=== PATIENT | female | born 1990 | race Caucasian/White ===

== ENCOUNTER → 2020-07-24 | Outpatient (CLI) | payer MEDICAID, SELFPAY | END | disposition home or self-care (01) | LOC: LABSPEC 18:13 | PROVIDERS: Visit Provider Physician Assistant | DX: Z20.822 Contact with and (suspected) exposure to COVID-19 (principal) | CPT/HCPCS: 87635; U0005; U0003 ==

== ENCOUNTER 2021-10-13 16:38 | Outpatient (CLI) | payer OTHER, SELFPAY ==
--- NOTE | 2021-10-13 16:43 | RAD_ITS ---
HISTORY: Trauma, left foot injury EXAMINATION/TECHNIQUE: XR Foot Min 3 Views: COMPARISON: None FINDINGS: BONES/JOINTS: No acute fracture or dislocation. Preservation of the joint spaces. No sclerotic or destructive changes observed. SOFT TISSUES: No soft tissue swelling or gas. No radiopaque foreign body. RAD/Foot min 3 Views IMPRESSION: No acute bony abnormality. at 1820 Reported and signed by: Ike Aguilar MD Electronically Signed: Ike Aguilar MD at 18:19 EDT ,
== END 2021-10-13 23:59 | disposition home or self-care (01) ==
LOC: MTRAD 16:41
PROVIDERS: Referring Provider Physician Assistant; Visit Provider Physician Assistant
DX: S90.30XA Contusion of unspecified foot, initial encounter (principal)
CPT/HCPCS: 73630

== ENCOUNTER 2024-01-12 10:58 | Inpatient (IN) | payer MEDICAID, SELFPAY ==
[2024-01-12 10:58] VITALS: BP 166/129; PULSE 111; RESP 19; TEMP 35.8; O2SAT 98
[2024-01-12 11:50] LABS: Absolute Lymphocyte Count 2.56 X10^3/uL (0.83-4.51); Absolute Neutrophil Count 16.3 X10^3/uL (2.0-7.7); Basophil# 0.09 X10^3/uL; Basophil% 0.4 % (0-1); Eosinophil# 0.27 X10^3/uL; Eosinophils% 1.3 % (0-5); Hematocrit 43.9 % (37-47); Hemoglobin 14.2 g/dL (12.0-15.0); Lymphocyte # 2.56 X10^3/ul (0.83-4.51); Lymphocyte % 12.7 % (19-41); Mean Corp Hgb Conc 32.3 g/dL (32-36); Mean Corpuscular Hgb 30.6 pg (27.0-32.0); Mean Corpuscular Volume 94.6 fL (81-99); Mean Platelet Vol. 12.6 fl (6.2-12.0); Monocyte# 0.78 X10^3/uL; Monocyte% 3.9 % (0-10); NRBC Flagged by Analyzer 0 % (0-5); Neutrophil # 16.28 X10^3/uL (2.7-7.7); Neutrophil % 81.1 % (47-70); Platelet Count 401 K/mm3 (150-450); RBC Distribution Width CV 13.3 % (11.6-14.6); RBC Distribution Width SD 46.5 fl (35.1-43.9); Red Blood Count 4.64 M/mm3 (4.2-5.4); White Blood Count 20.1 K/mm3 (4.4-11.0)
--- NOTE | 2024-01-12 12:10 | CT_ITS ---
STUDY: CT ABDOMEN AND PELVIS WITH CONTRAST - URINARY TRACT REASON FOR EXAM: Female, 33 years old. Pancreatitis RADIATION DOSAGE (If Supplied By Facility): CTDIvol = ( 12.13 ) mGy, DLP = ( 580.13 ) mGycm TECHNIQUE: IV 100mL Isovue-300 was administered. Transaxial images were obtained from the dome of the diaphragm to the symphysis pubis subsequent to intravenous contrast administration. Multiplanar coronal and sagittal images were reformatted. The protocol utilizes one or more of the following dose reduction techniques: automated exposure control, adjustment of mA and/or kV according to patient size,and/or use of iterative reconstruction technique. COMPARISON: No relevant prior comparison study available FINDINGS: The visualized lung bases are unremarkable. The visualized portions of the heart are within normal limits. There is decreased attenuation of the liver consistent with steatosis. There is splenomegaly. There are surgical clips in the gallbladder fossa consistent with a prior cholecystectomy. Normal spleen. There is prominence of the pancreas with marge-pancreatic edema suggesting acute pancreatitis. Normal bilateral adrenal glands. Normal visualized stomach. Normal small intestine. There is intramural fat throughout the colon suggestive of prior inflammation. There is circumferential wall thickening of the colon as well, most pronounced within the sigmoid colon. The appendix is visualized and appears normal. Normal abdominal aorta. No retroperitoneal adenopathy. Normal right kidney. Normal left kidney. Normal urinary bladder. There is trace fluid within the pelvis which is physiologic. There is a small umbilical hernia containing fat. Normal osseous structures. CT/Abdomen/Pelvis W IV Cont ONLY IMPRESSION: Acute appendicitis. Fatty infiltration of the liver associated with hepatomegaly. Intramural colonic fat associated with wall thickening, suggestive of a history of colitis, cannot exclude superimposed acute colitis, particularly within the sigmoid colon. Electronically Signed: Libra Sherman MD at 12:57 EDT ,
[2024-01-12 12:14] LABS: AST(SGOT) 29 U/L (15-37); Alanine Aminotransfer ALT/SGPT 27 U/L (13-56); Albumin, Serum 3.5 g/dL (3.2-5.0); Alkaline Phosphatase 145 U/L (45-117); Anion Gap 9 (5-15); BUN 11 mg/dL (7-18); BUN/Creat Ratio 14.7 RATIO (10-20); Bilirubin, Direct 0.26 mg/dL (0.00-0.30); Calcium,Total 9.4 mg/dL (8.5-10.1); Chloride 107 mmol/L (98-107); Creatinine, Serum 0.75 mg/dL (0.55-1.02); EST Glomerular Filtration Rate 95 mL/min (>60); Est Glom Filt Rate - Afr Amer 115 mL/min (>60); Globulin 4.4 g/dL (2.2-4.2); Glucose 111 mg/dL (74-106); Lipase 1367 U/L (13-75); Protein, Total 7.9 g/dL (6.4-8.2); Sodium Level 137 mmol/L (136-145)
[2024-01-12] MEDS: Ondansetron 4 MG/2 ML Vial IV ×3 (12:16→20:12)
[2024-01-12] MEDS: HYDROmorphone 1 MG/ML Syringe IV ×4 (12:18→22:48)
[2024-01-12] MEDS: 0.9% Normal Saline (1000mL) 1,000 ML 999 ML IV ×2 (12:18→13:30)
--- NOTE | 2024-01-12 12:37 | ED.VIS.GI ---
HPI HPI - GI History of Present Illness Chief Complaint: Abd Pain Narrative Narrative: Patient presenting with abdominal pain. She has recent history of pancreatitis. She states that [facility] initially admit her in [facility] but they were unable to control her pain and was transferred to [facility] to have GI evaluation. She states she was in the hospital for about a week. She states she was seen by 4 different GI doctors who thought that her case was too complicated for them. She states that they believed that her pancreatitis was due to alcohol use but she states she only drinks occasionally. Patient apparently had a small bowel obstruction associated with this. She did have an NG tube placed. Over the course of her stay she was able to get her pain under control and was discharged on the . Her mother states she had been doing well however for last night her pain got worse. She states that she does not want to go back to [facility] because they did not treat her well. She did have a right upper quadrant ultrasound which was negative. She had a CT of the abdomen pelvis which shows pancreatitis but without necrosis, abscess, pseudocyst. [facility] Medical History IBS (irritable bowel syndrome) Contusion of unspecified foot, initial encounter Unspecified sprain of unspecified foot, initial encounter Home Medications ?Medication ?Instructions ?Recorded ?Last Taken ?Type Lactobacillus acidophilus 500 500 mmu cells PO BID GUT HEALTH 01/12/24 01/12/24 History million cell capsule albuterol sulfate 90 mcg/actuation 1 - 2 puff inhalation Q6H PRN 01/12/24 Unknown History aerosol inhaler ASTHMA folic acid 1 mg tablet 1 mg PO DAILY SUPPLEMENT 01/12/24 01/12/24 History food supplemt, lactose-reduced 112 ml PO DAILY SUPPLEMENT 01/12/24 01/11/24 History (Ensure oral liquid) melatonin 10 mg tablet 10 - 20 mg PO QHS SLEEP 01/12/24 01/11/24 History omeprazole 40 mg capsule,delayed 40 mg PO DAILY GERD 01/12/24 01/12/24 History release thiamine HCl (vitamin B1) 100 mg 100 mg PO DAILY SUPPLEMENT 01/12/24 01/12/24 History tablet Allergy/AdvReac Type Severity Reaction Status Date / Time codeine AdvReac Intermediate Vomiting Verified 01/12/24 11:01 Social History Smoking Status: Current every day smoker tobacco type: cigarettes ROS ROS ED Constitutional Constitutional ED: Denies chills, fever(s) or sweats Eyes Eyes: Denies blurry vision or change in vision ENT ENT ED: Denies ear pain or sore throat Cardiovascular Cardiovascular: Denies chest pain, palpitations or racing heartbeat Respiratory/Chest Respiratory/Chest: Denies cough, dyspnea or sputum Gastrointestinal Gastrointestinal: Reports abdominal pain, nausea and vomiting; Denies constipation or diarrhea Genitourinary Genitourinary ED: Denies dysuria, hematuria or urinary frequency Musculoskeletal Musculoskeletal: Denies arthralgias, myalgias or neck pain Integumentary Denies abscess, Abrasions or rash Neurologic Neurologic: Denies headache(s), paresthesias or weakness Psychiatric Psychiatric: Denies anxiety, depression, suicidal ideation or suicidal thoughts Endocrine Endocrinology: Denies polydipsia or polyuria EXAM Physical Exam Const Vital Signs: 01/12/24 10:58 01/12/24 12:58 01/12/24 14:00 Temperature 96.4 F L 97.8 F Temperature Source Temporal Pulse Rate 111 H 82 82 Respiratory Rate 19 H 16 16 Blood Pressure 166/129 H 115/78 118/74 Blood Pressure Mean 141 90 88 Pulse Ox 98 99 99 Oxygen Delivery Method Room Air Room Air Positive well nourished General Appearance ED: Negative for pallor HEENT Reports moist mucous membranes normocephalic and atraumatic Eyes PERRL and EOMs intact bilaterally Resp normal respiratory effort Cardio regular rhythm Rate: tachycardic GI Inspection: other Palpation: tender epigastric Neuro CN's II-XII intact bilaterally and moves all extremities Sensorium / Orientation: alert Motor Exam: strength 5/5 throughout Psych Mood & Affect: tearful Skin General Skin Exam: Negative for jaundice or pallor MDM MDM MDM Narrative Medical decision making narrative: Patient presenting with epigastric abdominal pain. Differential includes colitis, diverticulitis, gastritis, pancreatitis, constipation, appendicitis, UTI, pyelonephritis, calculi, ureteral calculi, obstruction, malignancy, dehydration, electrolyte abnormalities, constipation. CBC will be obtained to assess white blood cell count, hemoglobin, platelets. CMP to assess renal function, electrolytes, liver function, glucose. Lipase to assess for pancreatitis. Urinalysis to assess for UTI. I was able to log into [facility], and I was able to find pertinent medical records available for review to compare to the patient's current lab/imaging/workup. Her highest that I can find her lipase is greater than 375. Previous CT scan of the abdomen pelvis which was performed on 12/01/2023 showed prominent retroperitoneal lymph nodes which were reactive as well as moderate right and small left pleural effusion. There was evidence of dilated loops of bowels with terminal ileitis. It was also noted that there was pancreatitis about evidence of necrosis, cyst, abscess. CBC today shows a leukocytosis of 20.1. Hemoglobin 14.5. Platelets are normal at 401. INR is normal. LFTs unremarkable with exception of her alkaline phosphatase of 145. Lipase is 1367. EtOH negative. CT of the abdomen pelvis shows acute pancreatitis. Discussed case with Dr. Miller prior to admission and he did put in some orders. He will see the patient in the hospital. Patient admitted to the hospitalist. Impression: 1. Acute pancreatitis Lab Data Attestation: I reviewed the patient's lab results. Labs: Laboratory Results - last 24 hr 01/12/24 01/12/24 01/12/24 11:35 12:50 13:03 WBC 20.1 H RBC 4.64 Hgb 14.2 Hct 43.9 MCV 94.6 MCH 30.6 MCHC 32.3 RDW Std Deviation 46.5 H RDW Coeff of Mercedes 13.3 Plt Count 401 MPV 12.6 H Immature Gran % (Auto) 0.600 Neut % (Auto) 81.1 H Lymph % (Auto) 12.7 L [place] % (Auto) 3.9 Eos % (Auto) 1.3 Baso % (Auto) 0.4 Absolute Neuts (auto) 16.3 H Absolute Lymphs (auto) 2.56 Nucleated RBC % 0 PT 15.2 H INR 1.2 Sodium 137 Potassium 4.0 Chloride 107 Carbon Dioxide 21.0 Anion Gap 9 BUN 11 Creatinine 0.75 Est GFR (MDRD) Af Amer 115 Est GFR (MDRD) Non-Af 95 BUN/Creatinine Ratio 14.7 Glucose 111 H Calcium 9.4 Total Bilirubin 1.00 Direct Bilirubin 0.26 AST 29 ALT 27 Alkaline Phosphatase 145 H Total Protein 7.9 Albumin 3.5 Globulin 4.4 H Lipase 1367 H Ethyl Alcohol < 3.0 Radiography Diagnostic Testing: Clinical Impression(s) from Imaging Studies Abdomen/Pelvis CT 01/12/24 12:10 IMPRESSION: Acute appendicitis. Fatty infiltration of the liver associated with hepatomegaly. Intramural colonic fat associated with wall thickening, suggestive of a history of colitis, cannot exclude superimposed acute colitis, particularly within the sigmoid colon. Electronically Signed: Libra Sherman MD at 12:57 EDT , Discharge Plan Triage Chief Complaint: Abd Pain ED Provider: Antonio Odell Dx/Rx/DC Orders Prescriptions: No Action Lactobacillus acidophilus 500 million cell capsule 500 mmu cells PO BID folic acid 1 mg tablet 1 mg PO DAILY thiamine HCl (vitamin B1) 100 mg tablet 100 mg PO DAILY omeprazole 40 mg capsule,delayed release(DR/EC) 40 mg PO DAILY melatonin 10 mg tablet 10 - 20 mg PO QHS Ensure Liquid 112 ml PO DAILY albuterol sulfate 90 mcg/actuation HFA aerosol inhaler 1 - 2 puff inhalation Q6H PRN (Reason: ASTHMA ) Primary Care Provider: Rossi Jones Referrals: Rossi Jones DO [Primary Care Provider] - Print Language: Mongolian
[2024-01-12 12:58] VITALS: BP 115/78; PULSE 82; RESP 16; O2SAT 99
[2024-01-12 13:13] LABS: International Normalized Ratio 1.2; Prothrombin Time (Protime)PT. 15.2 SECONDS (11.7-14.9)
[2024-01-12] MEDS: HYDROmorphone 0.5 MG/0.5 ML SYRINGE IV ×3 (13:30→17:36)
[2024-01-12 13:37] LABS: Alcohol, Blood (Medical)-Serum < 3.0 mg/dL
[2024-01-12 14:00] VITALS: BP 118/74; PULSE 82; RESP 16; TEMP 36.6; O2SAT 99
--- NOTE | 2024-01-12 15:01 | PCM.HP.STD ---
HPI - General General Date of Admission: 01/12/24 Date of Service: 01/12/24 Chief Complaint: Abdominal pain, recent history of pancreatitis HPI Narrative FEROZ IZQUIERDO, is a 33 F who presents to the emergency room at [facility] with complaints of generalized abdominal pain and nausea. She had been hospitalized at [facility] in [facility] approximately 2 weeks ago and was given a diagnosis of pancreatitis and stayed there several days. They attributed the pancreatitis to alcohol intake although the patient does not drink alcohol on a daily basis. Labs obtained in the emergency room showed an elevated white blood cell count at 20.1, chemistry profile was remarkable for alkaline phosphatase of 145, patient's lipase was 1367. Patient was given IV narcotics in the emergency room for pain control, I talked at length with the patient and her family who was in the room, they feel that she was not treated appropriately at [place] because she was labeled drug-seeking and felt that the pancreatitis was due to alcohol use which the patient is denying on a chronic basis. Patient has had a past history of cholecystectomy, she denied having an MRCP done at [facility]. Patient will be admitted to [place] [id number], she will be seen in consultation by gastroenterology, MRCP will be ordered, the abnormal areas in the colon will probably need to be addressed sooner or later when the patient is able to drink a prep for colonoscopy. [facility] Medical History IBS (irritable bowel syndrome) Contusion of unspecified foot, initial encounter Unspecified sprain of unspecified foot, initial encounter Home Medications ?Medication ?Instructions ?Recorded ?Last Taken ?Type Lactobacillus acidophilus 500 500 mmu cells PO BID GUT HEALTH 01/12/24 01/12/24 History million cell capsule albuterol sulfate 90 mcg/actuation 1 - 2 puff inhalation Q6H PRN 01/12/24 Unknown History aerosol inhaler ASTHMA folic acid 1 mg tablet 1 mg PO DAILY SUPPLEMENT 01/12/24 01/12/24 History food supplemt, lactose-reduced 112 ml PO DAILY SUPPLEMENT 01/12/24 01/11/24 History (Ensure oral liquid) melatonin 10 mg tablet 10 - 20 mg PO QHS SLEEP 01/12/24 01/11/24 History omeprazole 40 mg capsule,delayed 40 mg PO DAILY GERD 01/12/24 01/12/24 History release thiamine HCl (vitamin B1) 100 mg 100 mg PO DAILY SUPPLEMENT 01/12/24 01/12/24 History tablet Allergy/AdvReac Type Severity Reaction Status Date / Time codeine AdvReac Intermediate Vomiting Verified 01/12/24 11:01 Social History Smoking Status: Current every day smoker tobacco type: cigarettes ROS Constitutional Constitutional: Denies anorexia, change in weight, chills, fatigue, fever(s), malaise, night sweats or weakness Eyes Eyes: Denies blurry vision, change in vision, discharge from eye(s) or eye pain Cardiovascular Cardiovascular: Denies chest pain, claudication, dyspnea on exertion, edema or palpitations Respiratory/Chest Respiratory/Chest: Denies cough, hemoptysis, shortness of breath at rest or shortness of breath with exertion Gastrointestinal Gastrointestinal: Reports abdominal pain, nausea and vomiting; Denies constipation, diarrhea, hematemesis, hematochezia or melena Genitourinary Genitourinary: Denies dysuria, hematuria, urinary frequency, urinary hesitancy, urinary incontinence or urinary urgency Musculoskeletal Musculoskeletal: Denies back pain, joint pain, joint stiffness, joint swelling, myalgias or neck pain Neurologic Neurologic: Denies abnormal gait, abnormal speech, dizziness, focal weakness, headache(s), loss of vision, numbness, other visual disturbances, paresthesias, syncope or tingling Psychiatric Psychiatric: Denies anxiety, cognitive impairment, depression, irritability, mood swings or suicidal ideation Endocrine Endocrinology: Denies change in body appearance, cold intolerance, excessive sweating, heat intolerance, polydipsia or polyuria Hematologic/Lymphatic Hematologic/Lymphatic: Denies none, anemia, easy bleeding, easy bruising or lymphadenopathy Allergic/Immunologic Allergic/Immunologic: Denies rhinitis, urticaria, eczemia or asthma Vital Signs Vital Signs Vital Signs: 01/12/24 10:58 01/12/24 12:58 01/12/24 14:00 Temperature 96.4 F L 97.8 F Temperature Source Temporal Pulse Rate 111 H 82 82 Respiratory Rate 19 H 16 16 Blood Pressure 166/129 H 115/78 118/74 Blood Pressure Mean 141 90 88 Pulse Ox 98 99 99 Oxygen Delivery Method Room Air Room Air Physical Exam Const alert and oriented x3 Constitutional Narrative: Patient appears uncomfortable due to generalized abdominal pain General Appearance: cooperative, well kempt and well developed Orientation / Consciousness: awake, oriented to person, oriented to place and oriented to time HEENT normocephalic, head/scalp atraumatic, hearing grossly normal bilaterally and moist oral mucous membranes Eyes PERRL, EOMs intact bilaterally and conjunctivae normal Neck supple, no JVD, thyroid normal and no carotid bruits General: trachea midline Resp normal respiratory effort, no retractions, no use of accessory muscles and clear to auscultation bilaterally Auscultation: Negative for rales, rhonchi or wheezes Cardio regular rate, regular rhythm, S1 normal heart sound, S2 normal heart sound, no murmurs, no rub and no gallops GI GI Narrative: Abdomen is tender to palpation, abdomen is not distended, bowel sounds are diminished in all 4 quadrants, no rebound abdominal tenderness was noted Extremity no clubbing, cyanosis or edema Skin no rashes or lesions noted General Skin Exam: no breakdown Neuro oriented x3, CN's II-XII intact bilaterally, moves all extremities, no focal motor deficits and no sensory deficits noted Sensorium / Orientation: awake and alert Speech: speech normal Psych affect normal Results Lab / Micro Data 01/12/24 11:35 01/12/24 11:35 Labs: Laboratory Results - last 24 hr 01/12/24 11:35: WBC 20.1 H, RBC 4.64, Hgb 14.2, Hct 43.9, MCV 94.6, MCH 30.6, MCHC 32.3, RDW Std Deviation 46.5 H, RDW Coeff of Mercedes 13.3, Plt Count 401, MPV 12.6 H, Immature Gran % (Auto) 0.600, Neut % (Auto) 81.1 H, Lymph % (Auto) 12.7 L, [place] % (Auto) 3.9, Eos % (Auto) 1.3, Baso % (Auto) 0.4, Absolute Neuts (auto) 16.3 H, Absolute Lymphs (auto) 2.56, Nucleated RBC % 0, Sodium 137, Potassium 4.0, Chloride 107, Carbon Dioxide 21.0, Anion Gap 9, BUN 11, Creatinine 0.75, Est GFR (MDRD) Af Amer 115, Est GFR (MDRD) Non-Af 95, BUN/Creatinine Ratio 14.7, Glucose 111 H, Calcium 9.4, Total Bilirubin 1.00, Direct Bilirubin 0.26, AST 29, ALT 27, Alkaline Phosphatase 145 H, Total Protein 7.9, Albumin 3.5, Globulin 4.4 H, Lipase 1367 H 01/12/24 12:50: PT 15.2 H, INR 1.2 01/12/24 13:03: Ethyl Alcohol < 3.0 Imaging Radiology Impression Abdomen/Pelvis CT 01/12/24 12:10 IMPRESSION: Acute appendicitis. Fatty infiltration of the liver associated with hepatomegaly. Intramural colonic fat associated with wall thickening, suggestive of a history of colitis, cannot exclude superimposed acute colitis, particularly within the sigmoid colon. Electronically Signed: Libra Sherman MD at 12:57 EDT , Assessment & Plan Assessment/Plan (1) Acute pancreatitis: PLAN: Plan 1. Acute pancreatitis-patient will be admitted to [place] [address], she will receive IV fluids and put on a clear liquid diet, she will be seen in consultation by gastroenterology who has already ordered additional lab tests on her. Patient will be medicated with Dilaudid as needed for pain and given Zofran for nausea. Labs will be monitored, MRCP will be ordered. #2 thickening of the colonic wall-this was read out today on her CT as possibly being chronic versus acute colitis, worst area in the sigmoid colon. Patient may need to undergo colonoscopy during her hospital stay. #3 leukocytosis-etiology unclear at this point, I will discuss with gastroenterology whether the patient should be placed on IV antibiotics, she was on IV antibiotics during her stay at [facility] ([facility]). Total clinical time spent by myself addressing the patient's medical issues, reviewing all of the data, and collaborating with patient's care team: 55-minute Charges/Coding Visit Charges Inpatient E&M: 46146 Init Hosp L2
[2024-01-12 15:12] LABS: Erythrocyte Sedimentation Rate 31 mm/hr (0-30)
--- NOTE | 2024-01-12 15:15 | MRI_ITS ---
INDICATION: Pancreatitis EXAMINATION: MRI - MR MRCP and Abdomen W/O Contrast TECHNIQUE: Multiplanar and multisequence MR images of the abdomen were obtained with MRCP sequence. Three-dimensional post-processing reconstructions were performed. IV Contrast Dosage and Agent: None. COMPARISON: CT abdomen and pelvis same date. FINDINGS: LIVER: No mass. Normal morphology. GALLBLADDER AND BILIARY TREE: Cholecystectomy. The CBD measures 4 mm. No intra- or extrahepatic biliary dilation. No choledochal filling defect. PANCREAS: Edematous pancreas with peripancreatic fluid and stranding. No abnormal pancreatic ductal dilatation. SPLEEN: Non-enlarged. ADRENAL GLANDS: No nodules. KIDNEYS: Normal renal size and position. No hydronephrosis. No mass. LYMPH NODES: No enlarged periportal or retroperitoneal lymph nodes. PERITONEUM: Trace ascites. VESSELS: Aorta is non-dilated. LOWER CHEST: No pleural effusion. MRI/MRCP Abdomen without Contrast IMPRESSION: Status postcholecystectomy. No choledocholithiasis. Findings of pancreatitis corresponding to the CT findings. Electronically Signed: Ike Aguilar MD at 21:00 EDT ,
[2024-01-12 15:23] LABS: CRP 9.54 mg/L (0.0-3.0); LDH 193 U/L (84-246)
[2024-01-12 15:40] LABS: Lactic Acid 1.1 mmol/L (0.4-1.9)
[2024-01-12 15:50] VITALS: BP 111/73; PULSE 89; RESP 18; TEMP 36.6; O2SAT 97
[2024-01-12] MEDS: 0.9% Normal Saline (1000mL) 1,000 ML 175 ML IV ×2 (15:53→21:48)
[2024-01-12] MEDS: 0.9% Saline Lock 10 ML Syringe IV ×2 (15:54→17:36)
[2024-01-12 15:58] VITALS: BMI 26.9
--- NOTE | 2024-01-12 17:56 | CON.PCM.GI_ITS ---
HPI Consult Data Date of Consult: 01/13/24 HPI Narrative Reason for Consultation: Pancreatitis HPI Narrative: FEROZ IZQUIERDO, is a 33 F who presents with abdominal pain. She has recent history of pancreatitis. She states that [facility] initially admit her in [place] but they were unable to control her pain and was transferred to [facility] to have GI evaluation. She states she was in the hospital for about a week. She states she was seen by 4 different GI doctors who thought that her case was too complicated for them. She states that they believed that her pancreatitis was due to alcohol use but she states she only drinks occasionally. Patient apparently had a small bowel obstruction associated with this. She did have an NG tube placed. Over the course of her stay she was able to get her pain under control and was discharged on the . Her mother states she had been doing well however for last night her pain got worse. She states that she does not want to go back to [place] because they did not treat her well. She did have a right upper quadrant ultrasound which was negative. She had a CT of the abdomen pelvis which shows pancreatitis but without necrosis, abscess, pseudocyst. WBC 20.1 H, ESR 31 H, Sodium 137, Potassium 4.0, Chloride 107, Carbon Dioxide 21.0, Anion Gap 9, BUN 11, Creatinine 0.75,Glucose 111 H, Calcium 9.4, Total Bilirubin 1.00, Direct Bilirubin 0.26, AST 29, ALT 27, Alkaline Phosphatase 145 H, Lactate Dehydrogenase 193, C-React Prot Ext Range 9.54 H, Total Protein 7.9, Albumin 3.5, Globulin 4.4 H, Lipase 1367 H , PT 15.2 H, INR 1.2, Ethyl Alcohol < 3.0, Lactic Acid 1.[address] scan abdomen pelvis and the ED that revealed: Acute pancreatitis. Fatty infiltration of the liver associated with hepatomegaly. Intramural colonic fat associated with wall thickening, suggestive of a history of colitis, cannot exclude superimposed acute colitis, particularly within the sigmoid colon. [facility] Medical History IBS (irritable bowel syndrome) Contusion of unspecified foot, initial encounter Unspecified sprain of unspecified foot, initial encounter Home Medications ?Medication ?Instructions ?Recorded ?Last Taken ?Type Lactobacillus acidophilus 500 500 mmu cells PO BID [employer] 01/12/24 01/12/24 History million cell capsule albuterol sulfate 90 mcg/actuation 1 - 2 puff inhalation Q6H PRN 01/12/24 Unknown History aerosol inhaler ASTHMA folic acid 1 mg tablet 1 mg PO DAILY SUPPLEMENT 01/12/24 01/12/24 History food supplemt, lactose-reduced 112 ml PO DAILY SUPPLEMENT 01/12/24 01/11/24 History (Ensure oral liquid) melatonin 10 mg tablet 10 - 20 mg PO QHS SLEEP 01/12/24 01/11/24 History omeprazole 40 mg capsule,delayed 40 mg PO DAILY GERD 01/12/24 01/12/24 History release thiamine HCl (vitamin B1) 100 mg 100 mg PO DAILY SUPPLEMENT 01/12/24 01/12/24 History tablet Allergy/AdvReac Type Severity Reaction Status Date / Time codeine AdvReac Intermediate Vomiting Verified 01/12/24 11:01 Social History Smoking Status: Current every day smoker tobacco type: cigarettes ROS Constitutional Constitutional: Denies anorexia, change in weight, chills, fatigue, fever(s), malaise, night sweats or weakness Eyes Eyes: Denies blurry vision, change in vision, discharge from eye(s) or eye pain Cardiovascular Cardiovascular: Denies chest pain, claudication, dyspnea on exertion, edema or palpitations Respiratory/Chest Respiratory/Chest: Denies cough, hemoptysis, shortness of breath at rest or shortness of breath with exertion Gastrointestinal Gastrointestinal: Reports abdominal pain, nausea and vomiting; Denies constipation, diarrhea, hematemesis, hematochezia or melena Genitourinary Genitourinary: Denies dysuria, hematuria, urinary frequency, urinary hesitancy, urinary incontinence or urinary urgency Musculoskeletal Musculoskeletal: Denies back pain, joint pain, joint stiffness, joint swelling, myalgias or neck pain Neurologic Neurologic: Denies abnormal gait, abnormal speech, dizziness, focal weakness, headache(s), loss of vision, numbness, other visual disturbances, paresthesias, syncope or tingling Psychiatric Psychiatric: Denies anxiety, cognitive impairment, depression, irritability, mood swings or suicidal ideation Endocrine Endocrinology: Denies change in body appearance, cold intolerance, excessive sweating, heat intolerance, polydipsia or polyuria Hematologic/Lymphatic Hematologic/Lymphatic: Denies none, anemia, easy bleeding, easy bruising or lymphadenopathy Allergic/Immunologic Allergic/Immunologic: Denies rhinitis, urticaria, eczemia or asthma Physical Exam Const alert and oriented x3 Constitutional Narrative: Patient appears uncomfortable due to generalized abdominal pain General Appearance: cooperative, well kempt and well developed Orientation / Consciousness: awake, oriented to person, oriented to place and oriented to time HEENT normocephalic, head/scalp atraumatic, hearing grossly normal bilaterally and moist oral mucous membranes Eyes PERRL, EOMs intact bilaterally and conjunctivae normal Neck supple, no JVD, thyroid normal and no carotid bruits General: trachea midline Resp normal respiratory effort, no retractions, no use of accessory muscles and clear to auscultation bilaterally Auscultation: Negative for rales, rhonchi or wheezes Cardio regular rate, regular rhythm, S1 normal heart sound, S2 normal heart sound, no murmurs, no rub and no gallops GI GI Narrative: Abdomen is tender to palpation, abdomen is not distended, bowel sounds are diminished in all 4 quadrants, no rebound abdominal tenderness was noted Extremity no clubbing, cyanosis or edema Skin no rashes or lesions noted General Skin Exam: no breakdown Neuro oriented x3, CN's II-XII intact bilaterally, moves all extremities, no focal motor deficits and no sensory deficits noted Sensorium / Orientation: awake and alert Speech: speech normal Psych affect normal Lab / Micro Data 01/13/24 06:58 01/12/24 11:35 Labs: Laboratory Results - last 24 hr 01/12/24 11:35: WBC 20.1 H, RBC 4.64, Hgb 14.2, Hct 43.9, MCV 94.6, MCH 30.6, MCHC 32.3, RDW Std Deviation 46.5 H, RDW Coeff of Mercedes 13.3, Plt Count 401, MPV 12.6 H, Immature Gran % (Auto) 0.600, Neut % (Auto) 81.1 H, Lymph % (Auto) 12.7 L, [place] % (Auto) 3.9, Eos % (Auto) 1.3, Baso % (Auto) 0.4, Absolute Neuts (auto) 16.3 H, Absolute Lymphs (auto) 2.56, Nucleated RBC % 0, ESR 31 H, Sodium 137, Potassium 4.0, Chloride 107, Carbon Dioxide 21.0, Anion Gap 9, BUN 11, Creatinine 0.75, Est GFR (MDRD) Af Amer 115, Est GFR (MDRD) Non-Af 95, BUN/Creatinine Ratio 14.7, Glucose 111 H, Calcium 9.4, Total Bilirubin 1.00, Direct Bilirubin 0.26, AST 29, ALT 27, Alkaline Phosphatase 145 H, Lactate Dehydrogenase 193, C-React Prot Ext Range 9.54 H, Total Protein 7.9, Albumin 3.5, Globulin 4.4 H, Lipase 1367 H 01/12/24 12:50: PT 15.2 H, INR 1.2 01/12/24 13:03: Ethyl Alcohol < 3.0 01/12/24 14:50: Lactic Acid 1.1 Imaging Radiology Impression Abdomen/Pelvis CT 01/12/24 12:10 IMPRESSION: Acute appendicitis. Fatty infiltration of the liver associated with hepatomegaly. Intramural colonic fat associated with wall thickening, suggestive of a history of colitis, cannot exclude superimposed acute colitis, particularly within the sigmoid colon. Electronically Signed: Libra Sherman MD at 12:57 EDT , Assessment & Plan Assessment/Plan (1) Acute pancreatitis: PLAN: Plan 33-year-old with possible acute idiopathic pancreatitis versus acute alcoholic pancreatitis. This is moderate pancreatitis. I would not say is severe pancreatitis at this time due to normal kidney function. -Acute pancreatitis-I am okay with a clear liquid diet. I am also okay with Dilaudid as needed for pain and given Zofran for nausea. Labs will be monitored, MRCP will be ordered. Common causes of acute pancreatitis include gallstones, alcohol abuse, smoking, hypertriglyceridemia, infections, trauma, drugs, malignancy, scorpion stings, hypercalcemia, and ERCP. Opioids, ADAL inhibitors, macrolides, NSAIDs, diuretics, statins, and cannabis have been associated with acute pancreatitis. Lower on the ?differential diagnosis does include pancreatic divisum, hereditary pancreatitis, autoimmune pancreatitis. - Thickening of the colonic wall-this was read out today on her CT as possibly being chronic versus acute colitis, worst area in the sigmoid colon. Patient may need to undergo colonoscopy during her hospital stay. The differential diagnosis does include inflammatory bowel disease, ischemic colitis, infectious colitis. I will draw labs for hypercoagulable workup and other labs in the work up of idiopathic pancreatitis. Charges/Coding Visit Charges Inpatient E&M: 45323 Init Hosp L3
[2024-01-12 20:24] VITALS: BP 146/87; PULSE 120; RESP 24; TEMP 37.2; O2SAT 98
[2024-01-12 21:32] LABS: Amphetamine Urine VISTA NEGATIVE (<1000 ng/mL); Barbiturate Urine VISTA NEGATIVE (< 200 ng/mL); Benzodiazepine Urine VISTA NEGATIVE (< 200 ng/mL); Cocaine Urine VISTA NEGATIVE (< 300 ng/mL); Ecstacy Urine VISTA NEGATIVE (< 500 ng/mL); Methadone Urine VISTA NEGATIVE (< 300 ng/mL); PCP Urine VISTA NEGATIVE (< 25 ng/mL); THC Urine VISTA POSITIVE (< 50 ng/mL); Vista UDS pH Range 5
[2024-01-12 22:07] VITALS: BP 118/67; PULSE 93; RESP 21; TEMP 36.7; O2SAT 98
[2024-01-13] VITALS (8 sets, daily range): BP systolic 94–136; BP diastolic 51–81; PULSE 90–110; RESP 15–20; TEMP 36.6–37; O2SAT 93–100
[2024-01-13] MEDS: Acetaminophen 325 MG Tablet 650 MG PO ×2 (01:00→22:19)
[2024-01-13] MEDS: oxyCODONE 5 MG Tablet PO ×5 (01:00→22:19)
[2024-01-13] MEDS: HYDROmorphone 1 MG/ML Syringe IV ×7 (01:52→20:37)
[2024-01-13] MEDS: proCHLORPERazine 10 MG/2 ML Vial IV ×2 (01:52→08:47)
[2024-01-13] MEDS: Pantoprazole Sodium 40 MG Tablet PO ×3 (01:55→22:07)
[2024-01-13] MEDS: 0.9% Normal Saline (1000mL) 1,000 ML 175 ML IV ×4 (03:04→21:56)
[2024-01-13] MEDS: Ondansetron 4 MG/2 ML Vial IV ×3 (05:58→20:37)
[2024-01-13 07:20] LABS: Absolute Lymphocyte Count 1.86 X10^3/uL (0.83-4.51); Absolute Neutrophil Count 10.2 X10^3/uL (2.0-7.7); Basophil# 0.03 X10^3/uL; Basophil% 0.2 % (0-1); Eosinophil# 0.15 X10^3/uL; Eosinophils% 1.1 % (0-5); Hematocrit 35.7 % (37-47); Hemoglobin 11.1 g/dL (12.0-15.0); Lymphocyte # 1.86 X10^3/ul (0.83-4.51); Lymphocyte % 14.1 % (19-41); Mean Corp Hgb Conc 31.1 g/dL (32-36); Mean Corpuscular Hgb 30.7 pg (27.0-32.0); Mean Corpuscular Volume 98.6 fL (81-99); Mean Platelet Vol. 12.3 fl (6.2-12.0); Monocyte# 0.85 X10^3/uL; Monocyte% 6.5 % (0-10); NRBC Flagged by Analyzer 0 % (0-5); Neutrophil # 10.21 X10^3/uL (2.7-7.7); Neutrophil % 77.6 % (47-70); Platelet Count 257 K/mm3 (150-450); RBC Distribution Width CV 13.3 % (11.6-14.6); RBC Distribution Width SD 48.5 fl (35.1-43.9); Red Blood Count 3.62 M/mm3 (4.2-5.4); White Blood Count 13.2 K/mm3 (4.4-11.0)
[2024-01-13 08:04] LABS: ALB/GLOB Ratio 0.8 RATIO (0.9-2.4); AST(SGOT) 27 U/L (15-37); Alanine Aminotransfer ALT/SGPT 21 U/L (13-56); Albumin, Serum 2.5 g/dL (3.2-5.0); Alkaline Phosphatase 127 U/L (45-117); Anion Gap 7 (5-15); BUN 4 mg/dL (7-18); BUN/Creat Ratio 9.3 RATIO (10-20); Calcium,Total 7.9 mg/dL (8.5-10.1); Chloride 109 mmol/L (98-107); Creatinine, Serum 0.43 mg/dL (0.55-1.02); EST Glomerular Filtration Rate 180 mL/min (>60); Est Glom Filt Rate - Afr Amer 217 mL/min (>60); Estimated Creatinine Clearance 168.21 ml/min; Globulin 3.3 g/dL (2.2-4.2); Glucose 95 mg/dL (74-106); Potassium 3.5 mmol/L (3.5-5.1); Protein, Total 5.8 g/dL (6.4-8.2); Sodium Level 137 mmol/L (136-145)
[2024-01-13 08:45] LABS: Triglycerides 127 mg/dL
[2024-01-13] MEDS: 0.9% Saline Lock 10 ML Syringe IV ×3 (09:49→20:37)
--- NOTE | 2024-01-13 10:57 | CASEMGMT ---
CHIARA LEYVA Assessment: Face to Face with pt for initial transition planning/care coordination assessment. RN AUTUMN introduced self and role at [facility], pt voices understanding and consents to assessment. Pt sitting up in bed in no distress, pt mom and best friend sitting at bedside. Pt agreeable to answering questions with visitors in room. Pt is A&O x4 and answers all questions appropriately at this time. Care providers, pharmacy, and demographics verified/updated. Admitting Dx: Acute pancreatitis PCP: Karen Specialists: Denies Preferred Pharmacy: [facility] Insurance: [facility] Prescription Benefit: yes LNOK: Skylar - mom, Meeta - aunt Living Arrangements: Pt lives with fiance and 2 kids in a trailer with 5 steps to enter. Pt states I with ADLs and IADLs. Transportation: Pt does not currently drive, family and friends assist with driving. DME: Denies HHC/SNF: Denies Hx of. Pt states uses alcohol on occasion, tobacco use 4-5 cigarettes a day, takes gummies on occasion. Pt states no concerns with going home at time of dc. Pt states no further concerns/needs. CM to follow. Advised pt to ask CM if any further question/concerns/needs arise, voices understanding. Pt Goal: Home Plan: Home, will follow plan of care. Jitendra GUADARRAMA CM
--- NOTE | 2024-01-13 11:03 | PN.HOSP_ITS ---
Reason for Visit Reason for Visit: Diagnoses Acute pancreatitis without necrosis or infection, unspecified (01/12/24) Objective Data Objective Data Vital Signs: Vital Signs Temp Pulse Resp BP Pulse Ox O2 Del Method 97.8 F 99 16 136/81 H 94 Room Air 01/13/24 08:51 01/13/24 08:51 01/13/24 08:51 01/13/24 08:51 01/13/24 08:51 01/13/24 08:51 Oxygen Delivery Method Room Air Weight: 146 lb 15.997 oz Body Mass Index (BMI) 26.9 Intake & Output: Intake and Output for Last 24 Hours 01/11/24 01/12/24 01/13/24 23:59 23:59 23:59 Intake Total 2527.92 / 2647.92 2038.17 / 2038. Balance 2527.92 / 2647.92 2038. / Lab / Micro Data 01/13/24 06:58 01/13/24 06:58 Labs: Laboratory Results - last 24 hr 01/12/24 11:35: WBC 20.1 H, RBC 4.64, Hgb 14.2, Hct 43.9, MCV 94.6, MCH 30.6, MCHC 32.3, RDW Std Deviation 46.5 H, RDW Coeff of Mercedes 13.3, Plt Count 401, MPV 12.6 H, Immature Gran % (Auto) 0.600, Neut % (Auto) 81.1 H, Lymph % (Auto) 12.7 L, [place] % (Auto) 3.9, Eos % (Auto) 1.3, Baso % (Auto) 0.4, Absolute Neuts (auto) 16.3 H, Absolute Lymphs (auto) 2.56, Nucleated RBC % 0, ESR 31 H, Sodium 137, Potassium 4.0, Chloride 107, Carbon Dioxide 21.0, Anion Gap 9, BUN 11, Creatinine 0.75, Est GFR (MDRD) Af Amer 115, Est GFR (MDRD) Non-Af 95, BUN/Creatinine Ratio 14.7, Glucose 111 H, Calcium 9.4, Total Bilirubin 1.00, Direct Bilirubin 0.26, AST 29, ALT 27, Alkaline Phosphatase 145 H, Lactate Dehydrogenase 193, C-React Prot Ext Range 9.54 H, Total Protein 7.9, Albumin 3.5, Globulin 4.4 H, Lipase 1367 H 01/12/24 12:50: PT 15.2 H, INR 1.2 01/12/24 13:03: Ethyl Alcohol < 3.0 01/12/24 14:50: Lactic Acid 1.1 01/12/24 21:10: Urine Opiates Screen POSITIVE H, Urine Methadone Screen NEGATIVE, Ur Barbiturates Screen NEGATIVE, Ur Phencyclidine Scrn NEGATIVE, Ur Amphetamines Screen NEGATIVE, MDMA (Ecstasy) Screen NEGATIVE, U Benzodiazepines Scrn NEGATIVE, Urine Cocaine Screen NEGATIVE, U Cannabinoids Screen POSITIVE H, Ur Drug Screen Comment 01/13/24 06:58: WBC 13.2 H, RBC 3.62 L, Hgb 11.1 L, Hct 35.7 L, MCV 98.6, MCH 30.7, MCHC 31.1 L, RDW Std Deviation 48.5 H, RDW Coeff of Mercedes 13.3, Plt Count 257, MPV 12.3 H, Immature Gran % (Auto) 0.500, Neut % (Auto) 77.6 H, Lymph % (Auto) 14.1 L, [place] % (Auto) 6.5, Eos % (Auto) 1.1, Baso % (Auto) 0.2, Absolute Neuts (auto) 10.2 H, Absolute Lymphs (auto) 1.86, Nucleated RBC % 0, Sodium 137, Potassium 3.5, Chloride 109 H, Carbon Dioxide 21.0, Anion Gap 7, BUN 4 L, C reatinine 0.43 L, Estim Creat Clear Calc 168.21, Est GFR (MDRD) Af Amer 217, Est GFR (MDRD) Non-Af 180, BUN/Creatinine Ratio 9.3 L, Glucose 95, Calcium 7.9 L, T otal Bilirubin 1.80 H, AST 27, ALT 21, Alkaline Phosphatase 127 H, Total Protein 5.8 L, Albumin 2.5 L, Globulin 3.3, Albumin/Globulin Ratio 0.8 L, Triglycerides 127, Miscellaneous Test Cancelled Radiography Diagnostic Testing: Radiology Impression Abdomen/Pelvis CT 01/12/24 12:10 IMPRESSION: Acute appendicitis. Fatty infiltration of the liver associated with hepatomegaly. Intramural colonic fat associated with wall thickening, suggestive of a history of colitis, cannot exclude superimposed acute colitis, particularly within the sigmoid colon. Electronically Signed: Libra Sherman MD at 12:57 EDT , ADDENDUM: 01/13/24 0808 IMPRESSION: undefined MRCP 01/12/24 15:15 IMPRESSION: Status postcholecystectomy. No choledocholithiasis. Findings of pancreatitis corresponding to the CT findings. Electronically Signed: Ike Aguilar MD at 21:00 EDT , Physical Exam Narrative Seen and examined. Patient is still has severe abdominal pain mainly in epigastric region. Requiring Dilaudid. No fever. Patient had cholecystectomy in the past. Physical exam General: Alert, Oriented x3, Cooperative HEENT: Atraumatic, PERRLA, EOMI, Normocephalic Oral: No Gingival or Mucosal Lesions/ Ulcerations Neck: Supple, No JVD, Negative Carotid Bruits Chest wall/Lungs: Air entry diminished in bilateral lung bases. No crepitation/rhonchi Cardiovascular: Regular rate, Regular Rhythm, Normal S1, Normal S2, No M/G/R Abdomen: Bowel Sounds sluggish, Soft, tenderness present at epigastrium. Non- Distended : No dysuria. No renal angle tenderness. No suprapubic tenderness. Extremities: No edema, Capillary Refill Less than 3 Seconds Skin: No rashes, No breakdown Musculoskeletal: No Tenderness to Palpation of Joints or Extremities Neurological: Cranial nerves II-XII grossly intact, DTR 2+/4. No acute focal neurological deficit. Psych/Mental Status: Flat affect. Assessment & Plan Assessment/Plan (1) Acute pancreatitis: PLAN: Plan 33-year-old female admitted with abdominal pain with recent history of pancreatitis. Previously she was admitted in [facility] and was seen by GI doctor. She had right upper quadrant sonogram which was negative. CT shows pancreatitis but without necrosis abscess or pseudocyst. 1. [facility] Continue IV fluid. Initially n.p.o. changed to clear liquid. Patient is still in significant pain. Etiology of acute pancreatitis unclear as patient is states she occasionally drinks alcohol. Had cholecystectomy in the past. Does not have family history of pancreatitis or congenital pancreatic duct disorder. Conservative management. MRCP done shows no choledocholithiasis. Edematous pancreas with peripancreatic fat and stranding with no abnormal pancreatic ductal dilatation consistent with findings of pancreatitis. #2. Thickening of the colonic wall-this was read out today on her CT. Patient does not have pain over bilateral lower quadrants, fever or any new abnormality in bowel movement/diarrhea therefore I suspect it to be not acute. GI recommended colonoscopy. #3 leukocytosis-probably due to acute pancreatitis: She was admitted with WBC 20,000 improved to 13,000. No acute indication for IV antibiotic. Charges/Coding Visit Charges Inpatient E&M: 52415 Subs Hosp L2
--- NOTE | 2024-01-13 18:31 | PN.GI_ITS ---
Subjective Subjective Patient still complains of a lot of abdominal pain. Her BUN has decreased appropriately with IV fluids. She states she cannot eat anything. Objective Data Objective Data Vital Signs: Vital Signs Temp Pulse Resp BP Pulse Ox O2 Del Method 98.6 F 109 H 18 106/68 95 Room Air 01/13/24 17:21 01/13/24 17:21 01/13/24 17:21 01/13/24 17:21 01/13/24 17:21 01/13/24 17:21 Oxygen Delivery Method Room Air Weight: 146 lb 15.997 oz Body Mass Index (BMI) 26.9 Intake & Output: Intake and Output for Last 24 Hours 01/11/24 01/12/24 01/13/24 23:59 23:59 23:59 Intake Total 2527.92 / 2647.92 3039.17 / 3039.17 Balance 2527.92 / 2647.92 3039.17 / 3039.17 Lab / Micro Data 01/13/24 06:58 01/13/24 06:58 Labs: Laboratory Results - last 24 hr 01/12/24 21:10: Urine Opiates Screen POSITIVE H, Urine Methadone Screen NEGATIVE, Ur Barbiturates Screen NEGATIVE, Ur Phencyclidine Scrn NEGATIVE, Ur Amphetamines Screen NEGATIVE, MDMA (Ecstasy) Screen NEGATIVE, U Benzodiazepines Scrn NEGATIVE, Urine Cocaine Screen NEGATIVE, U Cannabinoids Screen POSITIVE H, Ur Drug Screen Comment 01/13/24 06:58: WBC 13.2 H, RBC 3.62 L, Hgb 11.1 L, Hct 35.7 L, MCV 98.6, MCH 30.7, MCHC 31.1 L, RDW Std Deviation 48.5 H, RDW Coeff of Mercedes 13.3, Plt Count 257, MPV 12.3 H, Immature Gran % (Auto) 0.500, Neut % (Auto) 77.6 H, Lymph % (Auto) 14.1 L, [place] % (Auto) 6.5, Eos % (Auto) 1.1, Baso % (Auto) 0.2, Absolute Neuts (auto) 10.2 H, Absolute Lymphs (auto) 1.86, Nucleated RBC % 0, Sodium 137, Potassium 3.5, Chloride 109 H, Carbon Dioxide 21.0, Anion Gap 7, BUN 4 L, C reatinine 0.43 L, Estim Creat Clear Calc 168.21, Est GFR (MDRD) Af Amer 217, Est GFR (MDRD) Non-Af 180, BUN/Creatinine Ratio 9.3 L, Glucose 95, Calcium 7.9 L, T otal Bilirubin 1.80 H, AST 27, ALT 21, Alkaline Phosphatase 127 H, Total Protein 5.8 L, Albumin 2.5 L, Globulin 3.3, Albumin/Globulin Ratio 0.8 L, Triglycerides 127, Miscellaneous Test Cancelled Radiography Diagnostic Testing: Radiology Impression Abdomen/Pelvis CT 01/12/24 12:10 IMPRESSION: Acute appendicitis. Fatty infiltration of the liver associated with hepatomegaly. Intramural colonic fat associated with wall thickening, suggestive of a history of colitis, cannot exclude superimposed acute colitis, particularly within the sigmoid colon. Electronically Signed: Libra Sherman MD at 12:57 EDT , ADDENDUM: 01/13/24 0808 IMPRESSION: undefined MRCP 01/12/24 15:15 IMPRESSION: Status postcholecystectomy. No choledocholithiasis. Findings of pancreatitis corresponding to the CT findings. Electronically Signed: Ike Augilar MD at 21:00 EDT , Physical Exam Narrative Seen and examined. Patient is still has severe abdominal pain mainly in epigastric region. Requiring Dilaudid. No fever. Patient had cholecystectomy in the past. Physical exam General: Alert, Oriented x3, Cooperative HEENT: Atraumatic, PERRLA, EOMI, Normocephalic Oral: No Gingival or Mucosal Lesions/ Ulcerations Neck: Supple, No JVD, Negative Carotid Bruits Chest wall/Lungs: Air entry diminished in bilateral lung bases. No crepitation/rhonchi Cardiovascular: Regular rate, Regular Rhythm, Normal S1, Normal S2, No M/G/R Abdomen: Bowel Sounds sluggish, Soft, tenderness present at epigastrium. Non- Distended : No dysuria. No renal angle tenderness. No suprapubic tenderness. Extremities: No edema, Capillary Refill Less than 3 Seconds Skin: No rashes, No breakdown Musculoskeletal: No Tenderness to Palpation of Joints or Extremities Neurological: Cranial nerves II-XII grossly intact, DTR 2+/4. No acute focal neurological deficit. Psych/Mental Status: Flat affect. Assessment & Plan Assessment/Plan (1) Acute pancreatitis: PLAN: Plan 33-year-old with possible acute idiopathic pancreatitis versus acute alcoholic pancreatitis. This is moderate pancreatitis. I would not say is severe pancreatitis at this time due to normal kidney function. -Acute pancreatitis-I am okay with a clear liquid diet. I am also okay with Dilaudid as needed for pain and given Zofran for nausea. Labs will be monitored, MRCP will be ordered. Common causes of acute pancreatitis include gallstones, alcohol abuse, smoking, hypertriglyceridemia, infections, trauma, drugs, malignancy, scorpion stings, hypercalcemia, and ERCP. Opioids, ADAL inhibitors, macrolides, NSAIDs, diuretics, statins, and cannabis have been associated with acute pancreatitis. Lower on the ?differential diagnosis does include pancreatic divisum, hereditary pancreatitis, autoimmune pancreatitis. - Thickening of the colonic wall-this was read out today on her CT as possibly being chronic versus acute colitis, worst area in the sigmoid colon. Patient may need to undergo colonoscopy during her hospital stay. The differential diagnosis does include inflammatory bowel disease, ischemic colitis, infectious colitis. I will draw labs for hypercoagulable workup and other labs in the work up of idiopathic pancreatitis.. 01/13/2024-patient underwent MRCP and it showed findings consistent with her previous CT scan and that she does have pancreatitis but there is no pancreatic divisum, sign of necrosis. Her hepatobiliary tree is normal size without ductal abnormality. She still continues to have a lot of pain. Workup was sent for alcohol induced pancreatitis such as GGT and HARPAL. Along with a 2-week alcohol A1c. I am not sure if this is an autoimmune phenomenon because her IgG4 is not back yet, VLADISLAV is not back yet. Also sent all triglycerides and other workup for different etiologies of her pancreatitis. 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 Continue supportive care. Charges/Coding Visit Charges Inpatient E&M: 32348 Subs Hosp L3
[2024-01-13] MEDS: MELATONIN 10 MG TABLET PO (22:07)
[2024-01-14 01:00] VITALS: BP 105/59; PULSE 96; O2SAT 92
[2024-01-14] MEDS: 0.9% Saline Lock 10 ML Syringe IV ×2 (01:01→04:05)
[2024-01-14] MEDS: HYDROmorphone 1 MG/ML Syringe IV ×6 (01:01→21:27)
[2024-01-14 02:35] VITALS: BP 127/69; PULSE 103; RESP 18; TEMP 36.6; O2SAT 98
[2024-01-14] MEDS: Acetaminophen 325 MG Tablet 650 MG PO ×5 (02:37→20:28)
[2024-01-14] MEDS: oxyCODONE 5 MG Tablet PO ×5 (02:37→20:28)
[2024-01-14] MEDS: 0.9% Normal Saline (1000mL) 1,000 ML 175 ML IV ×4 (03:40→20:27)
[2024-01-14 06:48] VITALS: BP 98/67; PULSE 95; RESP 16; TEMP 36.6; O2SAT 96
[2024-01-14] MEDS: Ondansetron 4 MG/2 ML Vial IV ×2 (07:55→21:27)
[2024-01-14] MEDS: Pantoprazole Sodium 40 MG Tablet PO ×2 (07:56→22:01)
[2024-01-14] MEDS: 0.9 % NaCl (Sterile) Posiflush 10 mL IV (07:56)
[2024-01-14 10:00] LABS: Erythrocyte Sedimentation Rate 15 mm/hr (0-30)
[2024-01-14 10:02] LABS: ALB/GLOB Ratio 0.6 RATIO (0.9-2.4); AST(SGOT) 56 U/L (15-37); Alanine Aminotransfer ALT/SGPT 41 U/L (13-56); Albumin, Serum 2.1 g/dL (3.2-5.0); Alkaline Phosphatase 215 U/L (45-117); Amylase 48 U/L (25-115); Anion Gap 8 (5-15); BUN 1 mg/dL (7-18); BUN/Creat Ratio 2.7 RATIO (10-20); Calcium,Total 7.7 mg/dL (8.5-10.1); Chloride 108 mmol/L (98-107); Creatinine, Serum 0.37 mg/dL (0.55-1.02); EST Glomerular Filtration Rate 214 mL/min (>60); Est Glom Filt Rate - Afr Amer 259 mL/min (>60); Estimated Creatinine Clearance 195.49 ml/min; Globulin 3.3 g/dL (2.2-4.2); Glucose 96 mg/dL (74-106); Protein, Total 5.4 g/dL (6.4-8.2); Sodium Level 138 mmol/L (136-145)
[2024-01-14 10:09] VITALS: BP 123/73; PULSE 98; RESP 16; TEMP 37; O2SAT 98
--- NOTE | 2024-01-14 11:45 | PCM.PN.HOSP ---
Reason for Visit Reason for Visit: Diagnoses Acute pancreatitis without necrosis or infection, unspecified (01/12/24) Objective Data Objective Data Vital Signs: Vital Signs Temp Pulse Resp BP Pulse Ox O2 Del Method O2 Flow Rate 98.6 F 98 16 123/73 H 98 Room Air 2 01/14/24 10:09 01/14/24 10:01/14/24 10:01/14/24 10:01/14/24 10:01/14/24 10:01/14/24 02:35 Oxygen Flow Rate (L/min) 2 Oxygen Delivery Method Room Air Weight: 146 lb 15.997 oz Body Mass Index (BMI) 26.9 Intake & Output: Intake and Output for Last 24 Hours 01/12/24 01/13/24 01/14/24 23:59 23:59 23:59 Intake Total 2527.92 / 2647.92 4439.17 / 4439.17 2122.92 / 2122.92 Output Total 250 / 250 450 / 450 Balance 2527.92 / 2647.92 4189.17 / 4189.17 1672.92 / 1672.92 Lab / Micro Data 01/13/24 06:58 01/14/24 09:33 Labs: Laboratory Results - last 24 hr 01/14/24 09:33: ESR 15, Sodium 138, Potassium 3.0 L, Chloride 108 H, Carbon Dioxide 22.0, Anion Gap 8, BUN 1 L, Creatinine 0.37 L, Estim Creat Clear Calc 195.49, Est GFR (MDRD) Af Amer 259, Est GFR (MDRD) Non-Af 214, BUN/Creatinine Ratio 2.7 L, Glucose 96, Calcium 7.7 L, Total Bilirubin 2.50 H, AST 56 H, ALT 41, Alkaline Phosphatase 215 H, C-React Prot Ext Range 123.00 H, Total Protein 5.4 L, Albumin 2.1 L, Globulin 3.3, Albumin/Globulin Ratio 0.6 L, Amylase 48 Physical Exam Narrative Seen and examined. Patient had vomiting bilious in nature 1 time in the morning. Patient is still has severe abdominal pain mainly in epigastric region requiring Dilaudid every 3-4 hour. As per nursing staff, she has set up her clock for Dilaudid dose. As she describes her pain and she was watching a movie on her laptop and does not have emotional component of pain. No fever. Patient had cholecystectomy in the past. Physical exam General: Alert, Oriented x3, Cooperative HEENT: Atraumatic, PERRLA, EOMI, Normocephalic Oral: No Gingival or Mucosal Lesions/ Ulcerations Neck: Supple, No JVD, Negative Carotid Bruits Chest wall/Lungs: Air entry diminished in bilateral lung bases. No crepitation/rhonchi Cardiovascular: Regular rate, Regular Rhythm, Normal S1, Normal S2, No M/G/R Abdomen: Bowel Sounds sluggish, Soft, tenderness present at epigastrium. Non-Distended : No dysuria. No renal angle tenderness. No suprapubic tenderness. Extremities: No edema, Capillary Refill Less than 3 Seconds Skin: No rashes, No breakdown Musculoskeletal: No Tenderness to Palpation of Joints or Extremities Neurological: Cranial nerves II-XII grossly intact, DTR 2+/4. No acute focal neurological deficit. Psych/Mental Status: Flat affect. Assessment & Plan Assessment/Plan (1) Acute pancreatitis: PLAN: Plan 33-year-old female admitted with abdominal pain with recent history of pancreatitis. Previously she was admitted in [facility] and was seen by GI doctor. She had right upper quadrant sonogram which was negative. CT shows pancreatitis but without necrosis abscess or pseudocyst. 1. Acute pancreatitis-[facility]. Continue IV fluid. Initially n.p.o. changed to clear liquid. Patient is still in significant pain. Etiology of acute pancreatitis unclear as patient is states she occasionally drinks alcohol. Had cholecystectomy in the past. Does not have family history of pancreatitis or congenital pancreatic duct disorder. Conservative management. MRCP done shows no choledocholithiasis. Edematous pancreas with peripancreatic fat and stranding with no abnormal pancreatic ductal dilatation consistent with findings of pancreatitis. 01/13 had vomiting and antiemetic was given. Serum potassium 3.0 and replaced. Serum calcium 7.7 but corrected calcium is 9.2 for hypoalbuminemia, 2.1. Total bilirubin 2.5. AST 56. Alkaline phosphatase 250. CRP elevated. #2. Thickening of the colonic wall-this was read out today on her CT. Patient does not have pain over bilateral lower quadrants, fever or any new abnormality in bowel movement/diarrhea therefore I suspect it to be not acute. GI recommended colonoscopy as outpatient. She is having mild vomiting. #3 leukocytosis-probably due to acute pancreatitis: She was admitted with WBC 20,000 improved to 13,000. No acute indication for IV antibiotic. DVT prophylaxis low risk. Early ambulation encouraged. Charges/Coding Visit Charges Inpatient E&M: 72257 Subs Hosp L2
[2024-01-14] MEDS: Potassium Chloride Oral Tablet 20 MEQ 40 MEQ PO ×2 (12:00→17:26)
[2024-01-14 12:09] LABS: GGTP 67 IU/L (0-60)
[2024-01-14] MEDS: proCHLORPERazine 10 MG/2 ML Vial IV (14:02)
[2024-01-14 15:58] VITALS: BP 117/62; PULSE 96; RESP 16; TEMP 36.7; O2SAT 100
--- NOTE | 2024-01-14 17:13 | PN.GI_ITS ---
Subjective Subjective Patient is still requiring a lot of pain medicine. She rates her pain at a 12 out of 10. She continues to be afebrile. She had a mild increase in white blood cell count. She is tolerating clear liquid diet. She remains on IV fluids and has been getting Dilaudid [id number]. Objective Data Objective Data Vital Signs: Vital Signs Temp Pulse Resp BP Pulse Ox O2 Del Method O2 Flow Rate 98.0 F 96 16 117/62 100 Room Air 2 01/14/24 15:58 01/14/24 15:58 01/14/24 15:58 01/14/24 15:58 01/14/24 15:58 01/14/24 15:58 01/14/24 02:35 Oxygen Flow Rate (L/min) 2 Oxygen Delivery Method Room Air Weight: 146 lb 15.997 oz Body Mass Index (BMI) 26.9 Intake & Output: Intake and Output for Last 24 Hours 01/12/24 01/13/24 01/14/24 23:59 23:59 23:59 Intake Total 2527.92 / 2647.92 4439.17 / 4439.17 3338.75 / 3338.75 Output Total 250 / 250 450 / 450 Balance 2527.92 / 2647.92 4189.17 / 4189.17 2888.75 / 2888.75 Lab / Micro Data 01/13/24 06:58 01/14/24 09:33 Labs: Laboratory Results - last 24 hr 01/12/24 13:03: GGT 67 H 01/14/24 09:33: ESR 15, Sodium 138, Potassium 3.0 L, Chloride 108 H, Carbon Dioxide 22.0, Anion Gap 8, BUN 1 L, Creatinine 0.37 L, Estim Creat Clear Calc 195.49, Est GFR (MDRD) Af Amer 259, Est GFR (MDRD) Non-Af 214, BUN/Creatinine Ratio 2.7 L, Glucose 96, Calcium 7.7 L, Total Bilirubin 2.50 H, AST 56 H, ALT 41, Alkaline Phosphatase 215 H, C-React Prot Ext Range 123.00 H, Total Protein 5.4 L, Albumin 2.1 L, Globulin 3.3, Albumin/Globulin Ratio 0.6 L, Amylase 48 Physical Exam Narrative Seen and examined. Patient is still has severe abdominal pain mainly in epigastric region. Requiring Dilaudid. No fever. Patient had cholecystectomy in the past. Physical exam General: Alert, Oriented x3, Cooperative HEENT: Atraumatic, PERRLA, EOMI, Normocephalic Oral: No Gingival or Mucosal Lesions/ Ulcerations Neck: Supple, No JVD, Negative Carotid Bruits Chest wall/Lungs: Air entry diminished in bilateral lung bases. No crepitation/rhonchi Cardiovascular: Regular rate, Regular Rhythm, Normal S1, Normal S2, No M/G/R Abdomen: Bowel Sounds sluggish, Soft, tenderness present at epigastrium. Non- Distended : No dysuria. No renal angle tenderness. No suprapubic tenderness. Extremities: No edema, Capillary Refill Less than 3 Seconds Skin: No rashes, No breakdown Musculoskeletal: No Tenderness to Palpation of Joints or Extremities Neurological: Cranial nerves II-XII grossly intact, DTR 2+/4. No acute focal neurological deficit. Psych/Mental Status: Flat affect. Assessment & Plan Assessment/Plan (1) Acute pancreatitis: PLAN: Plan 33-year-old with possible acute idiopathic pancreatitis versus acute alcoholic pancreatitis. This is moderate pancreatitis. I would not say is severe pancreatitis at this time due to normal kidney function. -Acute pancreatitis-I am okay with a clear liquid diet. I am also okay with Dilaudid as needed for pain and given Zofran for nausea. Labs will be monitored, MRCP will be ordered. Common causes of acute pancreatitis include gallstones, alcohol abuse, smoking, hypertriglyceridemia, infections, trauma, drugs, malignancy, scorpion stings, hypercalcemia, and ERCP. Opioids, ADAL inhibitors, macrolides, NSAIDs, diuretics, statins, and cannabis have been associated with acute pancreatitis. Lower on the ?differential diagnosis does include pancreatic divisum, hereditary pancreatitis, autoimmune pancreatitis. - Thickening of the colonic wall-this was read out today on her CT as possibly being chronic versus acute colitis, worst area in the sigmoid colon. Patient may need to undergo colonoscopy during her hospital stay. The differential diagnosis does include inflammatory bowel disease, ischemic colitis, infectious colitis. I will draw labs for hypercoagulable workup and other labs in the work up of idiopathic pancreatitis.. 01/13/2024-patient underwent MRCP and it showed findings consistent with her previous CT scan and that she does have pancreatitis but there is no pancreatic divisum, sign of necrosis. Her hepatobiliary tree is normal size without ductal abnormality. She still continues to have a lot of pain. Workup was sent for alcohol induced pancreatitis such as GGT and HARPAL. Along with a 2-week alcohol A1c. I am not sure if this is an autoimmune phenomenon because her IgG4 is not back yet, VLADISLAV is not back yet. Also sent all triglycerides and other workup for different etiologies of her pancreatitis. 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 Continue supportive care. 01/14/2024-patient's clinical exam has unchanged. Her white blood cell count is improving. I checked her ESR and CRP. Her ESR is normal but her CRP went up to 128. I am not sure if this is from inflammation in her colon or the pancreas. Therefore we will recheck her CT scan of the abdomen pelvis to make sure there is no sign of necrosis. Charges/Coding Visit Charges Inpatient E&M: 66432 Subs Hosp L3
--- NOTE | 2024-01-14 17:15 | CT_ITS ---
EXAM: CT ABDOMEN AND PELVIS WITH INTRAVENOUS CONTRAST CLINICAL INDICATION: pancreatitis TECHNIQUE: Helically acquired images were obtained of the abdomen and pelvis with intravenous contrast. This CT exam was performed using one or more of the following dose reduction techniques: automated exposure control, adjustment of the mA and/or kV according to patient size, and/or use of iterative reconstruction technique. CONTRAST: 100 cc of Isovue-370 IV. Oral contrast. RADIATION DOSE: CTDIvol = 14.73 mGy, DLP = 690.13 mGy-cm COMPARISON: No relevant prior studies available. FINDINGS: LOWER THORAX: Small bilateral pleural effusions and atelectasis in the lung bases. No cardiomegaly. ABDOMEN: LIVER: There is diffuse low-attenuation of the liver. GALLBLADDER AND BILE DUCTS: Cholecystectomy. No intra- or extrahepatic biliary ductal dilation. PANCREAS: Moderate peripancreatic edema. No discrete fluid collection. Normal enhancement of the pancreas. No focal cystic or solid mass. SPLEEN: Unremarkable. Normal size without focal cystic or solid mass. ADRENALS: Unremarkable. No nodules. KIDNEYS AND URETERS: Unremarkable. Normal renal size and position. No hydronephrosis. STOMACH AND BOWEL: Increased fluid in the small bowel loops likely due to ileus. No stomach or bowel distention. No focal inflammatory change. PELVIS: APPENDIX: No evidence of acute appendicitis. BLADDER: Unremarkable. REPRODUCTIVE: Unremarkable as visualized. No mass. ABDOMEN and PELVIS: INTRAPERITONEAL SPACE: Mild fluid in the anterior pararenal space. Mild ascites. No free air. BONES/JOINTS: Unremarkable. No suspicious lytic or blastic abnormality. SOFT TISSUES: Unremarkable. No discrete abdominal or pelvic wall hernia. VASCULATURE: Unremarkable. Abdominal aorta is non-dilated. LYMPH NODES: Unremarkable. No enlarged lymph nodes. CT/Abdomen/Pelvis W IV Cont ONLY IMPRESSION: 1. Acute interstitial edematous pancreatitis. No definite necrosis at the present time. No discrete walled off fluid collection. 2. Mild ascites. 3. Cholecystectomy. 4. Fatty liver. 5. Small bilateral pleural effusions and atelectasis in the lung bases. 6. Increased fluid in the small bowel loops likely due to ileus. Electronically Signed: Aleksey Muniz MD at 8:04 EDT ,
[2024-01-14 21:25] VITALS: BP 103/69; PULSE 97; RESP 16; TEMP 36.9; O2SAT 97
[2024-01-14] MEDS: MELATONIN 10 MG TABLET PO (22:00)
[2024-01-15] MEDS: HYDROmorphone 1 MG/ML Syringe IV ×4 (00:34→12:26)
[2024-01-15 01:47] VITALS: BP 117/76; PULSE 87; RESP 15; TEMP 36.5; O2SAT 100
[2024-01-15] MEDS: oxyCODONE 5 MG Tablet PO ×4 (01:52→15:02)
[2024-01-15] MEDS: Acetaminophen 325 MG Tablet 650 MG PO ×3 (01:52→15:02)
[2024-01-15] MEDS: 0.9% Normal Saline (1000mL) 1,000 ML 175 ML IV ×2 (02:50→08:28)
[2024-01-15] MEDS: Ondansetron 4 MG/2 ML Vial IV (04:57)
[2024-01-15 08:05] VITALS: BP 131/88; PULSE 87; RESP 18; TEMP 36.6; O2SAT 99
[2024-01-15] MEDS: proCHLORPERazine 10 MG/2 ML Vial IV (08:13)
[2024-01-15] MEDS: Potassium Chloride Oral Tablet 20 MEQ 40 MEQ PO (08:17)
[2024-01-15] MEDS: Pantoprazole Sodium 40 MG Tablet PO (08:19)
[2024-01-15 10:43] LABS: Anion Gap 8 (5-15); BUN < 1 mg/dL (7-18); Chloride 108 mmol/L (98-107); Creatinine, Serum 0.31 mg/dL (0.55-1.02); EST Glomerular Filtration Rate 262 mL/min (>60); Est Glom Filt Rate - Afr Amer 318 mL/min (>60); Estimated Creatinine Clearance 233.33 ml/min; Glucose 92 mg/dL (74-106); Magnesium 1.4 mg/dL (1.6-2.6); Phosphorus 2.8 mg/dL (2.5-4.9); Potassium 3.5 mmol/L (3.5-5.1); Sodium Level 139 mmol/L (136-145)
--- NOTE | 2024-01-15 11:05 | PCM.DC ---
Discharge Instructions Diet Discharge Diet: - (Advised low fatty/oily diet, low residue at least for 5 days.) Activity Discharge Activity: Return to Normal Activity Weight Bearing Status: Weight bearing as tolerated Dressing / Incision Call your doctor if you observe: Fever of 101 or Higher, Coldness, Increased Pain, Numbness or Tingling, Change in Color, Inability to urinate, Inability to have a bowel movement, Using more than 1 pad per hour, Shortness of breath, Dizziness, Fainting spells, Swelling in the ankles, Chest pain, Prolonged hiccupping, Increased palpitations (irregular heartbeat) and Calf discomfort Follow Up Care When: IN 2 WEEKS Test Results: Test results from this visit will be discussed in further detail at your follow-up appointment, if applicable. Discharge Plan Admission Admit Date/Time: 01/12/24 14:35 Primary Reason for Your Visit: Acute pancreatitis. Attending Provider: Priyank Beck Primary Care Provider: Rossi Jones Consulting Providers: Cas Moya Instructions Additional Instructions / Restrictions: Advised to follow-up patient's own doubler helper, Dr. He Ritchie, in 2 to 4 weeks. Discharge Orders/Prescriptions Prescriptions: New potassium chloride 20 mEq Tablet,Er Particles/Crystals 40 meq PO BIDCM 5 Days Qty: 20 0RF magnesium 200 mg tablet 200 mg PO BID 5 Days Qty: 10 0RF Continued Lactobacillus acidophilus 500 million cell capsule 500 mmu cells PO BID folic acid 1 mg tablet 1 mg PO DAILY thiamine HCl (vitamin B1) 100 mg tablet 100 mg PO DAILY omeprazole 40 mg capsule,delayed release(DR/EC) 40 mg PO DAILY melatonin 10 mg tablet 10 - 20 mg PO QHS Ensure Liquid 112 ml PO DAILY albuterol sulfate 90 mcg/actuation HFA aerosol inhaler 1 - 2 puff inhalation Q6H PRN (Reason: ASTHMA ) Referrals / Follow Up: Rossi Jones DO [Primary Care Provider] - Disposition Disposition (needs filled in before D/C Order can be placed): Home, Self Care
--- NOTE | 2024-01-15 11:21 | PCM.DC ---
Discharge Instructions Follow Up Care Test Results: Test results from this visit will be discussed in further detail at your follow-up appointment, if applicable. Discharge Plan Admission Admit Date/Time: 01/12/24 14:35 Attending Provider: Priyank Beck Primary Care Provider: Rossi Jones Consulting Providers: Cas Moya Instructions Additional Instructions / Restrictions: Advised to follow-up patient's own mortician investigator, Dr. He Ritchie, in 2 to 4 weeks. Discharge Orders/Prescriptions Prescriptions: New potassium chloride 20 mEq Tablet,Er Particles/Crystals 40 meq PO BIDCM 5 Days Qty: 20 0RF magnesium 200 mg tablet 200 mg PO BID 5 Days Qty: 10 0RF Continued Lactobacillus acidophilus 500 million cell capsule 500 mmu cells PO BID folic acid 1 mg tablet 1 mg PO DAILY thiamine HCl (vitamin B1) 100 mg tablet 100 mg PO DAILY omeprazole 40 mg capsule,delayed release(DR/EC) 40 mg PO DAILY melatonin 10 mg tablet 10 - 20 mg PO QHS Ensure Liquid 112 ml PO DAILY albuterol sulfate 90 mcg/actuation HFA aerosol inhaler 1 - 2 puff inhalation Q6H PRN (Reason: ASTHMA ) Referrals / Follow Up: Rossi Jones DO [Primary Care Provider] - Disposition Disposition (needs filled in before D/C Order can be placed): Home, Self Care
--- NOTE | 2024-01-15 11:32 | PCM.DC.SUM ---
Providers Date of Admission: 01/12/24 Date of Discharge: 01/15/24 Primary Care Physician: Dr. Rossi Jones, DO Consultations 01/12/24 15:10 Consult: Gastroenterology Routine Consulting Provider: [facility] Reason for Consult: pancreatitis EMERGENT Consult: No MD Notified: Yes Date Notified: 01/12/24 Time Notified: 14:51 Method of Notification: Verbal Reason For Visit: ACUTE PANCREATITIS Diagnosis Discharge Diagnosis (1) Acute pancreatitis: Status: Acute Code(s): K85.90 - Acute pancreatitis without necrosis or infection, unspecified Plan 33-year-old female admitted with abdominal pain with recent history of pancreatitis. Previously she was admitted in [facility] and was seen by GI doctor. She had right upper quadrant sonogram which was negative. CT shows pancreatitis but without necrosis abscess or pseudocyst. 1. Acute pancreatitis-patient is admitted on the [facility] floor. Continue IV fluid. Initially n.p.o. changed to clear liquid. Patient is still in significant pain. Etiology of acute pancreatitis unclear as patient is states she occasionally drinks alcohol. Had cholecystectomy in the past. Does not have family history of pancreatitis or congenital pancreatic duct disorder. Conservative management. MRCP done shows no choledocholithiasis. Edematous pancreas with peripancreatic fat and stranding with no abnormal pancreatic ductal dilatation consistent with findings of pancreatitis. 01/13 had vomiting and antiemetic was given. Serum potassium 3.0 and replaced. Serum calcium 7.7 but corrected calcium is 9.2 for hypoalbuminemia, 2.1. Total bilirubin 2.5. AST 56. Alkaline phosphatase 250. CRP elevated. 01/14: The pain is controlled. Patient is tolerating full liquid diet. Diet advanced to solid. Leukocytosis improved. Electrolytes reviewed. K3.5. Hypomagnesemia . On potassium and magnesium replacement. Patient is discharged on potassium and magnesium replacement. Patient has her automotive service advisor Dr. He Ritchie, and plans advised to follow-up in 2 to 3 weeks #2. Thickening of the colonic wall-this was read out today on her CT. Patient does not have pain over bilateral lower quadrants, fever or any new abnormality in bowel movement/diarrhea therefore I suspect it to be not acute. GI recommended colonoscopy as outpatient. She is having mild vomiting. 03/16: Vomiting is resolved. #3 leukocytosis-probably due to acute pancreatitis: She was admitted with WBC 20,000 improved to 13,000. No acute indication for IV antibiotic. DVT prophylaxis low risk. Early ambulation encouraged. Discharge medication reconciliation done. Discharge follow-up instructions completed. Discharge process discussed with the patient and all questions were answered to patient's satisfaction. Follow with PCP in 1 to 2 weeks Total time spent, exact 35 minutes on discharge meds reconciliation, examination, coordination of care with nurses and ancillary staff, review of imaging and blood test and discussion with the patient on follow-up instructions. Medications at Discharge Home Medications Lactobacillus acidophilus 500 million cell capsule 500 mmu cells PO BID [employer] 01/12/24 albuterol sulfate 90 mcg/actuation aerosol inhaler 1 - 2 puff inhalation Q6H PRN ASTHMA 01/12/24 folic acid 1 mg tablet 1 mg PO DAILY SUPPLEMENT 01/12/24 food supplemt, lactose-reduced (Ensure oral liquid) 112 ml PO DAILY SUPPLEMENT 01/12/24 melatonin 10 mg tablet 10 - 20 mg PO QHS SLEEP 01/12/24 omeprazole 40 mg capsule,delayed release 40 mg PO DAILY GERD 01/12/24 thiamine HCl (vitamin B1) 100 mg tablet 100 mg PO DAILY SUPPLEMENT 01/12/24 magnesium 200 mg tablet 200 mg PO BID 5 days #10 tabs 01/15/24 potassium chloride 20 mEq tablet,extended release(part/cryst) 40 meq (2 x 20 mEq) PO BIDCM 5 days #20 tabs 01/15/24 Physical Exam Narrative Seen and examined. Patient had vomiting bilious in nature 1 time in the morning. Patient is still has severe abdominal pain mainly in epigastric region requiring Dilaudid every 3-4 hour. As per nursing staff, she has set up her clock for Dilaudid dose. As she describes her pain and she was watching a movie on her laptop and does not have emotional component of pain. No fever. Patient had cholecystectomy in the past. Physical exam General: Alert, Oriented x3, Cooperative HEENT: Atraumatic, PERRLA, EOMI, Normocephalic Oral: No Gingival or Mucosal Lesions/ Ulcerations Neck: Supple, No JVD, Negative Carotid Bruits Chest wall/Lungs: Air entry diminished in bilateral lung bases. No crepitation/rhonchi Cardiovascular: Regular rate, Regular Rhythm, Normal S1, Normal S2, No M/G/R Abdomen: Bowel Sounds sluggish, Soft, mild tenderness present at epigastrium. Non-Distended : No dysuria. No renal angle tenderness. No suprapubic tenderness. Extremities: No edema, Capillary Refill Less than 3 Seconds Skin: No rashes, No breakdown Musculoskeletal: No Tenderness to Palpation of Joints or Extremities. ROM intact Neurological: Cranial nerves II-XII grossly intact, DTR 2+/4. No acute focal neurological deficit. Psych/Mental Status: Flat affect. Weight / BMI Weight Weight: 146 lb 15.997 oz Body Mass Index (BMI) 26.9 ABG / Lab / Microbiology Data 01/13/24 06:58 01/15/24 09:53 Laboratory: Laboratory Results - last 24 hr 01/12/24 13:03: GGT 67 H 01/13/24 12:35: Miscellaneous Test 01/15/24 09:53: Sodium 139, Potassium 3.5, Chloride 108 H, Carbon Dioxide 23.0, Anion Gap 8, BUN < 1 L, Creatinine 0.31 L, Estim Creat Clear Calc 233.33, Est GFR (MDRD) Af Amer 318, Est GFR (MDRD) Non-Af 262, BUN/Creatinine Ratio TNP, Glucose 92, Calcium 8.0 L, Phosphorus 2.8, Magnesium 1.4 L, C-React Prot Ext Range 84.00 H Radiography Diagnostic Testing: Radiology Impression Abdomen/Pelvis CT 01/14/24 17:15 IMPRESSION: 1. Acute interstitial edematous pancreatitis. No definite necrosis at the present time. No discrete walled off fluid collection. 2. Mild ascites. 3. Cholecystectomy. 4. Fatty liver. 5. Small bilateral pleural effusions and atelectasis in the lung bases. 6. Increased fluid in the small bowel loops likely due to ileus. Electronically Signed: Aleksey Muniz MD at 8:04 EDT , D/C Instructions Discharge Diet: - (Advised low fatty/oily diet, low residue at least for 5 days.) Weight Bearing Status: Weight bearing as tolerated Call your doctor if you observe: Fever of 101 or Higher, Coldness, Increased Pain, Numbness or Tingling, Change in Color, Inability to urinate, Inability to have a bowel movement, Using more than 1 pad per hour, Shortness of breath, Dizziness, Fainting spells, Swelling in the ankles, Chest pain, Prolonged hiccupping, Increased palpitations (irregular heartbeat) and Calf discomfort When: IN 2 WEEKS Meaningful Use Info Meaningful Use Meaningful Use Diagnoses (Choose all that apply): None applicable Ischemic Stroke Statin Dosing Therapy Reference: STATIN DOSE THERAPY REFERENCE: * Patients > 75 years receive moderate or high dose statin therapy. * Patients 75 years or YOUNGER should receive HIGH intensity statin dose unless contraindicated. You will be required to document reason for non-treatment if statin daily dose does not meet guidelines. HIGH DOSE STATIN THERAPY DAILY Atorvastatin > than or = to 40 mg Rosuvastatin > than or = to 20 mg Amlodipine + Atorvastatin > than or = to 2.5/40 mg Ezetimibe + Simvastatin 10/80 mg Simvastatin 80mg Discharge Plan Admission Admit Date/Time: 01/12/24 14:35 Primary Reason for Your Visit: Acute pancreatitis. Attending Provider: Priyank Beck Primary Care Provider: Rossi Jones Consulting Providers: Cas Moya Instructions Additional Instructions / Restrictions: Advised to follow-up patient's own automotive service advisor, Dr. He Ritchie, in 2 to 4 weeks. Discharge Orders/Prescriptions Prescriptions: New potassium chloride 20 mEq Tablet,Er Particles/Crystals 40 meq PO BIDCM 5 Days Qty: 20 0RF magnesium 200 mg tablet 200 mg PO BID 5 Days Qty: 10 0RF Continued Lactobacillus acidophilus 500 million cell capsule 500 mmu cells PO BID folic acid 1 mg tablet 1 mg PO DAILY thiamine HCl (vitamin B1) 100 mg tablet 100 mg PO DAILY omeprazole 40 mg capsule,delayed release(DR/EC) 40 mg PO DAILY melatonin 10 mg tablet 10 - 20 mg PO QHS Ensure Liquid 112 ml PO DAILY albuterol sulfate 90 mcg/actuation HFA aerosol inhaler 1 - 2 puff inhalation Q6H PRN (Reason: ASTHMA ) Referrals / Follow Up: Rossi Jones DO [Primary Care Provider] - Disposition Disposition (needs filled in before D/C Order can be placed): Home, Self Care Charges/Coding Visit Charges Inpatient E&M: 18791 Disch Hosp >30min
[2024-01-15] MEDS: 0.9% Saline Lock 10 ML Syringe IV ×2 (11:56→12:26)
[2024-01-15] MEDS: Magnesium Sulfate 2 GM in Dextrose 5%-Water (100mL Bag) 100 ML IV (12:25)
[2024-01-15 14:59] VITALS: BP 119/80; PULSE 90; RESP 16; TEMP 36.8; O2SAT 98
[2024-01-17 16:09] LABS: ACCA 0 units (0-90); ALCA 17 units (0-60); AMCA 24 units (0-100); Deamidated Gliadin IgA 5 units (0-19); Deamidated Gliadin IgG 3 units (0-19); Endomysial Antibody IgA Negative (Negative); Immunoglobulin A 313 mg/dL (87-352); gASCA 28 units (0-50); t-Transglutaminase IgA <2 U/mL (0-3)
[2024-01-19 07:08] LABS: Anti-Centromere B Ab <0.2 AI (0.0-0.9); Anti-Chromatin <0.2 AI (0.0-0.9); Anti-Jo <0.2 AI (0.0-0.9); Anti-Scleroderma-70 AB <0.2 AI (0.0-0.9); Anti-dsDNA Ab <1 IU/mL (0-9); Beef <0.10 kU/L (Class 0); Chocolate <0.10 kU/L (Class 0); Codfish <0.10 kU/L (Class 0); Corn <0.10 kU/L (Class 0); Egg, Whole <0.10 kU/L (Class 0); Milk (Cow) <0.10 kU/L (Class 0); Mussels <0.10 kU/L (Class 0); Peanut <0.10 kU/L (Class 0); Pork <0.10 kU/L (Class 0); RNP Ab 0.2 AI (0.0-0.9); SJOGREN'S Anti-SS-A test < 0.2 AI (0.0-0.9); SJOGREN'S Anti-SS-B test < 0.2 AI (0.0-0.9); Salmon <0.10 kU/L (Class 0); Shrimp <0.10 kU/L (Class 0); Smith Ab <0.2 AI (0.0-0.9); Soybean <0.10 kU/L (Class 0); Tuna <0.10 kU/L (Class 0); Wheat <0.10 kU/L (Class 0)
[2024-01-19 18:08] LABS: Immunoglobulin A 298 mg/dL (87-352); Immunoglobulin E 39 IU/mL (6-495); Immunoglobulin G 1040 mg/dL (586-1602); Immunoglobulin G, Subclass 1 403 mg/dL (248-810); Immunoglobulin G, Subclass 2 412 mg/dL (130-555); Immunoglobulin G, Subclass 3 59 mg/dL (15-102); Immunoglobulin G, Subclass 4 73 mg/dL (2-96); Immunoglobulin M 71 mg/dL (26-217)
== END 2024-01-15 15:28 | disposition home or self-care (01) | DRG 282 ==
LOC: ED 12:30 → MS3 14:56
PROVIDERS: Internal Medicine Gastroenterology; Admitting Provider Internal Medicine; Emergency Provider Student in an Organized Health Care Education/Training Program; PCP Family Medicine; Visit Provider Internal Medicine
DX: K85.90 Acute pancreatitis without necrosis or infection, unspecified (principal); E83.42 Hypomagnesemia; F17.210 Nicotine dependence, cigarettes, uncomplicated; K52.9 Noninfective gastroenteritis and colitis, unspecified; Z90.49 Acquired absence of other specified parts of digestive tract
CPT/HCPCS: 36415; 74177; 74181; 80048; 80053; 80076; 80307; 80320; 81240; 82150; 82784; 82785; 82787; 82977; 83516; 83605; 83615; 83690; 83735; 84100; 84478; 85025; 85300; 85301; 85302; 85303; 85305; 85306; 85610; 85652; 86003; 86005; 86036; 86140; 86225; 86235; 86255; 86671; 97802; 99283; J7030; Q9967; A4216; G0480; J2405

== ENCOUNTER 2024-01-29 12:10 | Inpatient (IN) | payer MEDICAID, SELFPAY ==
[2024-01-29 12:11] VITALS: BP 136/103; PULSE 108; RESP 20; TEMP 35.9; O2SAT 97
--- NOTE | 2024-01-29 12:24 | EDS_ITS ---
HPI History of Present Illness Chief Complaint: Abd Pain Informant: patient Onset/Context/Timing Onset: Yesterday Narrative Narrative: Patient presents secondary to abdominal pain with concern for recurrent pancreat itis. Patient was admitted to this hospital January 11 through the secondary to pancreatitis. She has an appointment to see Dr. Miller in follow-up in March. She states last evening she started getting some abdominal cramping and woke at 2 AM this morning with upper abdominal pain and vomiting. She has had a prior cholecystectomy. She rarely drinks alcohol and denies any recent use. [facility] Medical History (Updated 01/29/24 @ 14:[address] Dina Marin MD) Pancreatitis IBS (irritable bowel syndrome) Contusion of unspecified foot, initial encounter Unspecified sprain of unspecified foot, initial encounter Home Medications ?Medication ?Instructions ?Recorded ?Last Taken ?Type Lactobacillus acidophilus 500 500 mmu cells PO BID GUT HEALTH 01/12/24 01/12/24 History million cell capsule albuterol sulfate 90 mcg/actuation 1 - 2 puff inhalation Q6H PRN 01/12/24 Unknown History aerosol inhaler ASTHMA folic acid 1 mg tablet 1 mg PO DAILY SUPPLEMENT 01/12/24 01/12/24 History food supplemt, lactose-reduced 112 ml PO DAILY SUPPLEMENT 01/12/24 01/11/24 History (Ensure oral liquid) melatonin 10 mg tablet 10 - 20 mg PO QHS SLEEP 01/12/24 01/11/24 History thiamine HCl (vitamin B1) 100 mg 100 mg PO DAILY SUPPLEMENT 01/12/24 01/12/24 History tablet ketorolac 10 mg tablet 10 mg PO Q8H PRN pain 7 days #21 01/15/24 Unknown Rx tabs magnesium 200 mg tablet 200 mg PO BID 5 days #10 tabs 01/15/24 Unknown Rx omeprazole 40 mg capsule,delayed 40 mg PO DAILY GERD 30 days #30 01/15/24 Unknown Rx release caps potassium chloride 20 mEq 40 meq (2 x 20 mEq) PO BIDCM 5 01/15/24 Unknown Rx tablet,extended release(part/cryst) days #20 tabs dicyclomine 20 mg tablet 20 mg PO BID PRN abdominal pain 01/18/24 Unknown Rx #60 tabs Allergy/AdvReac Type Severity Reaction Status Date / Time codeine AdvReac Intermediate Vomiting Verified 01/29/24 12:11 Surgical History History of cholecystectomy Social History Smoking Status: Current every day smoker tobacco type: cigarettes ROS ROS ED Constitutional Constitutional ED: Denies chills or fever(s) Eyes Eyes: Denies discharge from eye(s) ENT ENT ED: Denies discharge from eye(s), rhinorrhea or sore throat Cardiovascular Cardiovascular: Denies chest pain or palpitations Respiratory/Chest Respiratory/Chest: Denies cough or dyspnea Gastrointestinal Gastrointestinal: Reports abdominal pain, nausea and vomiting; Denies diarrhea Genitourinary Genitourinary ED: Denies dysuria Musculoskeletal Musculoskeletal: Reports back pain; Denies extremity pain Integumentary Denies Abrasions or rash Neurologic Neurologic: Denies headache(s) or weakness Psychiatric Psychiatric: Denies anxiety or depression Allergic/Immunologic Allergic/Immunologic ED: Denies lip swelling or urticaria EXAM Physical Exam Narrative Exam Narrative: Patient lying on the bed in the position. She is in no acute distress. Const Vital Signs: 01/29/24 12:11 Temperature 96.6 F L Temperature Source Temporal Pulse Rate 108 H Respiratory Rate 20 H Blood Pressure 136/103 H Blood Pressure Mean 114 Pulse Ox 97 Oxygen Delivery Method Room Air Positive well nourished and well developed General Appearance ED: well developed HEENT Reports moist mucous membranes Eyes EOMs intact bilaterally Chest Wall inspection of chest normal and palpation of chest normal Resp normal respiratory effort and clear to auscultation bilaterally Cardio regular rhythm Rate: tachycardic GI GI Narrative: Abdomen soft with moderate diffuse tenderness. No guarding or rebound. Hypoactive bowel sounds. Extremity normal to inspection Neuro oriented x3 and no sensory deficits noted Motor Exam: strength 5/5 throughout Psych mental status grossly normal Skin no rashes or lesions noted MDM MDM MDM Narrative Medical decision making narrative: Patient's recent hospitalization records reviewed. IV line established. Pa tient given dose of Dilaudid and Zofran along with IV Protonix. Labwork obtained to evaluate for leukocytosis, anemia, and electrolyte derangement. History & Record Review Discussion w/independent historian: Patient Additional record(s) reviewed:: Prior inpatient record, Prior ED visit and Prior labs Lab Data Attestation: I reviewed the patient's lab results. Labs: Laboratory Results - last 24 hr 01/29/24 12:35 WBC 15.8 H RBC 4.42 Hgb 13.1 Hct 41.9 MCV 94.8 MCH 29.6 MCHC 31.3 L RDW Std Deviation 45.2 H RDW Coeff of Mercedes 12.9 Plt Count 519 H MPV 12.6 H Immature Gran % (Auto) 0.500 Neut % (Auto) 83.7 H Lymph % (Auto) 11.1 L [place] % (Auto) 3.5 Eos % (Auto) 0.9 Baso % (Auto) 0.3 Absolute Neuts (auto) 13.3 H Absolute Lymphs (auto) 1.76 Nucleated RBC % 0 Sodium 136 Potassium 4.0 Chloride 104 Carbon Dioxide 21.0 Anion Gap 11 BUN 10 Creatinine 0.65 Est GFR (MDRD) Af Amer 136 Est GFR (MDRD) Non-Af 112 BUN/Creatinine Ratio 15.4 Glucose 122 H Calcium 8.9 Total Bilirubin 1.00 Direct Bilirubin 0.28 AST 23 ALT 19 Alkaline Phosphatase 151 H Total Protein 7.2 Albumin 3.0 L Globulin 4.2 Lipase 468 H Serum , Qual NEGATIVE Treatment and Re-Evaluation :: CBC reveals white count of 15.8 with 83% neutrophils. Hemoglobin is 13.1. Chemistry studies unremarkable. test negative. LFTs significant for an alk phos of 151. Lipase is elevated at 468. Patient did receive a second dose of Dilaudid along with a dose of Toradol and continued IV fluids. I will speak with hospitalist regarding admission. Discharge Plan Triage Chief Complaint: Abd Pain ED Provider: Dina Marin Dx/Rx/DC Orders Clinical Impression: Pancreatitis Prescriptions: No Action Lactobacillus acidophilus 500 million cell capsule 500 mmu cells PO BID folic acid 1 mg tablet 1 mg PO DAILY thiamine HCl (vitamin B1) 100 mg tablet 100 mg PO DAILY melatonin 10 mg tablet 10 - 20 mg PO QHS Ensure Liquid 112 ml PO DAILY albuterol sulfate 90 mcg/actuation HFA aerosol inhaler 1 - 2 puff inhalation Q6H PRN (Reason: ASTHMA ) potassium chloride 20 mEq Tablet,Er Particles/Crystals 40 meq PO BIDCM 5 Days Qty: 20 0RF magnesium 200 mg tablet 200 mg PO BID 5 Days Qty: 10 0RF ketorolac 10 mg tablet 10 mg PO Q8H PRN (Reason: pain) 7 Days Qty: 21 0RF omeprazole 40 mg capsule,delayed release(DR/EC) 40 mg PO DAILY 30 Days Qty: 30 0RF dicyclomine 20 mg tablet 20 mg PO BID PRN (Reason: abdominal pain) Qty: 60 0RF Primary Care Provider: Rossi Jones Referrals: Rossi Jones DO [Primary Care Provider] - Print Language: Syriac Disposition Disposition: Acute Care Hospital [facility]
[2024-01-29] MEDS: Ondansetron 4 MG/2 ML Vial IV ×2 (12:44→16:54)
[2024-01-29] MEDS: 0.9% Normal Saline (1000mL) 1,000 ML 1000 ML IV (12:45)
[2024-01-29] MEDS: HYDROmorphone 1 MG/ML Syringe 0.5 MG IV (12:46)
[2024-01-29] MEDS: Pantoprazole Sodium 40 MG in 0.9% Normal Saline (100mL MB+) 100 ML 330 MG IV (12:47)
[2024-01-29 13:00] LABS: Absolute Lymphocyte Count 1.76 X10^3/uL (0.83-4.51); Absolute Neutrophil Count 13.3 X10^3/uL (2.0-7.7); Basophil# 0.04 X10^3/uL; Basophil% 0.3 % (0-1); Eosinophil# 0.14 X10^3/uL; Eosinophils% 0.9 % (0-5); Hematocrit 41.9 % (37-47); Hemoglobin 13.1 g/dL (12.0-15.0); Lymphocyte # 1.76 X10^3/ul (0.83-4.51); Lymphocyte % 11.1 % (19-41); Mean Corp Hgb Conc 31.3 g/dL (32-36); Mean Corpuscular Hgb 29.6 pg (27.0-32.0); Mean Corpuscular Volume 94.8 fL (81-99); Mean Platelet Vol. 12.6 fl (6.2-12.0); Monocyte# 0.56 X10^3/uL; Monocyte% 3.5 % (0-10); NRBC Flagged by Analyzer 0 % (0-5); Neutrophil # 13.25 X10^3/uL (2.7-7.7); Neutrophil % 83.7 % (47-70); Platelet Count 519 K/mm3 (150-450); RBC Distribution Width CV 12.9 % (11.6-14.6); RBC Distribution Width SD 45.2 fl (35.1-43.9); Red Blood Count 4.42 M/mm3 (4.2-5.4); White Blood Count 15.8 K/mm3 (4.4-11.0)
[2024-01-29 13:01] LABS: Internal QC Validated? YES +Cl - CLEAR BKGD; Pregnancy, Serum, hCG Quali. NEGATIVE Negative
[2024-01-29 13:37] LABS: AST(SGOT) 23 U/L (15-37); Alanine Aminotransfer ALT/SGPT 19 U/L (13-56); Alkaline Phosphatase 151 U/L (45-117); Anion Gap 11 (5-15); BUN 10 mg/dL (7-18); BUN/Creat Ratio 15.4 RATIO (10-20); Bilirubin, Direct 0.28 mg/dL (0.00-0.30); Calcium,Total 8.9 mg/dL (8.5-10.1); Chloride 104 mmol/L (98-107); Creatinine, Serum 0.65 mg/dL (0.55-1.02); EST Glomerular Filtration Rate 112 mL/min (>60); Est Glom Filt Rate - Afr Amer 136 mL/min (>60); Globulin 4.2 g/dL (2.2-4.2); Glucose 122 mg/dL (74-106); Lipase 468 U/L (13-75); Protein, Total 7.2 g/dL (6.4-8.2); Sodium Level 136 mmol/L (136-145)
[2024-01-29] MEDS: Ketorolac 15 MG/ML Vial IV (13:58)
[2024-01-29] MEDS: HYDROmorphone 0.5 MG/0.5 ML SYRINGE IV (13:58)
[2024-01-29 14:11] VITALS: BP 106/61; PULSE 68; RESP 18; O2SAT 98
--- NOTE | 2024-01-29 14:46 | NURSING ---
MED SURG KITTOE PANCREATITIS
--- NOTE | 2024-01-29 15:01 | HP.PCM.HOS_ITS ---
HPI - General General Date of Admission: 01/29/24 Date of Service: 01/29/24 Chief Complaint: Abdominal pain HPI Narrative FEROZ CHEEK, is a 33 F With recent hospitalization for acute pancreatitis less than 2 weeks prior to her admission of undetermined etiology who presented with abdominal pain. Patient symptoms started the night prior to coming in. Pain was located in the epigastric region radiating to the back. Associated symptoms included nausea and vomiting. Patient presented to the emergency department given the persistent of her symptoms. Was found to have slightly elevated lipase levels. Subsequently admitted for further management. [facility] Medical History (Updated 01/29/24 @ 15:[address] Kenrick Dow MD) Pancreatitis IBS (irritable bowel syndrome) Contusion of unspecified foot, initial encounter Unspecified sprain of unspecified foot, initial encounter Home Medications ?Medication ?Instructions ?Recorded ?Last Taken ?Type Lactobacillus acidophilus 500 500 mmu cells PO BID GUT HEALTH 01/12/24 01/12/24 History million cell capsule albuterol sulfate 90 mcg/actuation 1 - 2 puff inhalation Q6H PRN 01/12/24 Unknown History aerosol inhaler ASTHMA folic acid 1 mg tablet 1 mg PO DAILY SUPPLEMENT 01/12/24 01/12/24 History melatonin 10 mg tablet 10 - 20 mg PO QHS SLEEP 01/12/24 01/11/24 History thiamine HCl (vitamin B1) 100 mg 100 mg PO DAILY SUPPLEMENT 01/12/24 01/12/24 History tablet magnesium 200 mg tablet 200 mg PO BID deficient in mag and 01/15/24 Unknown Rx potassium 5 days #10 tabs omeprazole 40 mg capsule,delayed 40 mg PO DAILY GERD 30 days #30 01/15/24 Unknown Rx release caps potassium chloride 20 mEq 40 meq (2 x 20 mEq) PO BIDCM low 01/15/24 Unknown Rx tablet,extended release(part/cryst) potassium 5 days #20 tabs dicyclomine 20 mg tablet 20 mg PO BID PRN abdominal pain 01/18/24 Unknown Rx #60 tabs Allergy/AdvReac Type Severity Reaction Status Date / Time codeine AdvReac Intermediate Vomiting Verified 01/29/24 12:11 Surgical History History of cholecystectomy Social History Smoking Status: Current every day smoker tobacco type: cigarettes ROS ROS Narrative GENERAL: denies fever, chills, night sweats, weight loss, anorexia HEENT: denies headache, sinus congestion, or drainage, dysphagia RESPIRATORY: denies cough, sputum production, shortness of breath, dyspnea on exertion CARDIAC: denies chest pain, palpitations, orthopnea, PND GASTROINTESTINAL: abdominal pain, nausea, vomiting, melena, GENITOURINARY: denies dysuria, urgency, frequency, heamaturia EXTREMITY: denies swelling MUSCULOSKELETAL: denies current joint pain or tenderness NEUROLOGIC: denies focal numbness, weakness, tingling HEMATOLOGIC: denies easy bruising and/or hemorrhage INTEGUMENT: denies rashes PSYCHIATRIC: denies suicidal or homicidal ideation Vital Signs Vital Signs Vital Signs: 01/29/24 12:11 01/29/24 14:11 Temperature 96.6 F L Temperature Source Temporal Pulse Rate 108 H 68 Respiratory Rate 20 H 18 Blood Pressure 136/103 H 106/61 Blood Pressure Mean 114 76 Pulse Ox 97 98 Oxygen Delivery Method Room Air Room Air Results Lab / Micro Data 01/29/24 12:35 01/29/24 12:35 Labs: Laboratory Results - last 24 hr 01/29/24 12:35: WBC 15.8 H, RBC 4.42, Hgb 13.1, Hct 41.9, MCV 94.8, MCH 29.6, M CHC 31.3 L, RDW Std Deviation 45.2 H, RDW Coeff of Mercedes 12.9, Plt Count 519 H, M PV 12.6 H, Immature Gran % (Auto) 0.500, Neut % (Auto) 83.7 H, Lymph % (Auto) 11.1 L, [place] % (Auto) 3.5, Eos % (Auto) 0.9, Baso % (Auto) 0.3, Absolute Neuts (auto) 13.3 H, Absolute Lymphs (auto) 1.76, Nucleated RBC % 0, Sodium 136, Potassium 4.0, Chloride 104, Carbon Dioxide 21.0, Anion Gap 11, BUN 10, Creatinine 0.65, Est GFR (MDRD) Af Amer 136, Est GFR (MDRD) Non-Af 112, BUN/Creatinine Ratio 15.4, Glucose 122 H, Calcium 8.9, Total Bilirubin 1.00, Direct Bilirubin 0.28, AST 23, ALT 19, Alkaline Phosphatase 151 H, Total Protein 7.2, Albumin 3.0 L, Globulin 4.2, Lipase 468 H, Serum , Qual NEGATIVE Assessment & Plan Assessment/Plan (1) Abdominal pain: PLAN: Plan Patient is a 33-year-old lady with recent admission for acute pancreatitis presented with abdominal pain 1. Abdominal pain secondary to Acute pancreatitis ? Of undetermined etiology. Patient had undergone extensive workup during her previous admission without identifiable cause. Admitted to regular nursing floor managed with pain meds, IV fluids and antinausea medications. Ordered CT of the abdomen and pelvis to confirm. 2.Leukocytosis ? Possibly reactive no evidence of infection at this point. Repeat CBC with differential ordered for a.m. 3. GERD ? Patient is on PPI did continue 4. Mild intermittent asthma ? Aerosol treatment as needed 5. DVT prophylaxis ? Low risk to encourage ambulation CODE STATUS Full code Charges/Coding Visit Charges Inpatient E&M: 88569 Init Hosp L2
[2024-01-29 15:14] VITALS: BP 112/65; PULSE 56; RESP 15; TEMP 36.8; O2SAT 96
[2024-01-29 15:17] VITALS: BMI 27.1
[2024-01-29] MEDS: 0.9% Normal Saline (1000mL) 1,000 ML 150 ML IV (15:21)
[2024-01-29 16:27] VITALS: BP 142/72; PULSE 100; RESP 18; TEMP 37.2; O2SAT 100
[2024-01-29] MEDS: KCl 20MEQ in D5NS 20 MEQ/1,000 ML IV.SOLN. 200 MEQ IV ×2 (16:53→22:30)
[2024-01-29] MEDS: HYDROmorphone 1 MG/ML Syringe IV ×3 (16:54→23:30)
--- NOTE | 2024-01-29 18:10 | CT_ITS ---
STUDY: CT Abdomen And Pelvis W/ Contrast Injection 01/29/2024 8:04 PM REASON FOR EXAM: Female, 33 years old. ABDOMINAL PAIN abd pain TECHNIQUE: Transaxial images were obtained with oral contrast, and Oral and amp; IV Gastrografin and amp; 100mL Isovue-370 intravenous contrast. Individualized dose optimization techniques were used for this CT. Comparison: 01/14/2024 FINDINGS: The visualized lung bases are unremarkable. The visualized portions of the heart are within normal limits. There is decreased attenuation of the liver consistent with steatosis. Unremarkable gallbladder and extrahepatic biliary system. Unremarkable spleen. There is diffuse enlargement of the pancreas with marge-pancreatic edema suggesting acute pancreatitis. Unremarkable bilateral adrenal glands. No acute findings of the right kidney. No acute findings of the left kidney. Unremarkable visualized stomach. Unremarkable small intestine. Unremarkable colon. The appendix is visualized and appears unremarkable. There are no acute findings of the abdominal aorta. Unremarkable inferior vena cava. Subcentimeter mesenteric lymph nodes. Unremarkable urinary bladder. Normal visualized uterus. Trace free fluid in the pelvis. There is an umbilical hernia containing fat. Unremarkable osseous structures. CT/Abdomen/Pelvis WITH Contrast IMPRESSION: (NOT LISTED IN ORDER OF SIGNIFICANCE) Acute pancreatitis. Pelvic ascites. Fatty liver. Other findings as above. Electronically Signed: Hugo Araya MD at 20:07 EDT ,
[2024-01-29] MEDS: oxyCODONE 5 MG Tablet 10 MG PO (19:26)
[2024-01-29 20:15] VITALS: BP 117/85; PULSE 78; RESP 15; TEMP 36.8; O2SAT 99
[2024-01-29] MEDS: MELATONIN 3 MG TABLET PO (21:49)
[2024-01-29] MEDS: Acetaminophen 500 MG Tablet 1000 MG PO (23:24)
[2024-01-29] MEDS: Lactobacillis Acidophilus 1 CAP PO (23:24)
[2024-01-30 02:42] VITALS: BP 121/80; PULSE 80; RESP 15; TEMP 36.4; O2SAT 99
[2024-01-30] MEDS: HYDROmorphone 1 MG/ML Syringe IV ×7 (02:48→23:04)
[2024-01-30] MEDS: Ondansetron 4 MG/2 ML Vial IV ×2 (02:54→23:07)
[2024-01-30] MEDS: KCl 20MEQ in D5NS 20 MEQ/1,000 ML IV.SOLN. 200 MEQ IV (03:45)
[2024-01-30] MEDS: Acetaminophen 500 MG Tablet 1000 MG PO ×3 (05:59→20:02)
[2024-01-30 07:29] LABS: Absolute Lymphocyte Count 1.57 X10^3/uL (0.83-4.51); Absolute Neutrophil Count 8.4 X10^3/uL (2.0-7.7); Basophil# 0.03 X10^3/uL; Basophil% 0.3 % (0-1); Eosinophil# 0.39 X10^3/uL; Eosinophils% 3.5 % (0-5); Hematocrit 34.4 % (37-47); Hemoglobin 10.6 g/dL (12.0-15.0); Lymphocyte # 1.57 X10^3/ul (0.83-4.51); Mean Corp Hgb Conc 30.8 g/dL (32-36); Mean Corpuscular Hgb 30.1 pg (27.0-32.0); Mean Corpuscular Volume 97.7 fL (81-99); Mean Platelet Vol. 12.7 fl (6.2-12.0); Monocyte# 0.81 X10^3/uL; Monocyte% 7.2 % (0-10); NRBC Flagged by Analyzer 0 % (0-5); Neutrophil # 8.37 X10^3/uL (2.7-7.7); Neutrophil % 74.5 % (47-70); Platelet Count 364 K/mm3 (150-450); RBC Distribution Width CV 13.1 % (11.6-14.6); Red Blood Count 3.52 M/mm3 (4.2-5.4); White Blood Count 11.2 K/mm3 (4.4-11.0)
[2024-01-30 08:10] LABS: ALB/GLOB Ratio 0.7 RATIO (0.9-2.4); AST(SGOT) 17 U/L (15-37); Alanine Aminotransfer ALT/SGPT 15 U/L (13-56); Albumin, Serum 2.4 g/dL (3.2-5.0); Alkaline Phosphatase 118 U/L (45-117); Anion Gap 6 (5-15); BUN 4 mg/dL (7-18); BUN/Creat Ratio 8.5 RATIO (10-20); Calcium,Total 7.8 mg/dL (8.5-10.1); Chloride 108 mmol/L (98-107); Creatinine, Serum 0.47 mg/dL (0.55-1.02); EST Glomerular Filtration Rate 162 mL/min (>60); Est Glom Filt Rate - Afr Amer 196 mL/min (>60); Estimated Creatinine Clearance 154.57 ml/min; Globulin 3.3 g/dL (2.2-4.2); Glucose 145 mg/dL (74-106); Magnesium 1.5 mg/dL (1.6-2.6); Phosphorus 2.9 mg/dL (2.5-4.9); Potassium 3.6 mmol/L (3.5-5.1); Protein, Total 5.7 g/dL (6.4-8.2); Sodium Level 135 mmol/L (136-145)
[2024-01-30] MEDS: 0.9% Saline Lock 10 ML Syringe IV ×2 (08:49→12:31)
[2024-01-30] MEDS: Lactobacillis Acidophilus 1 CAP PO ×2 (08:50→20:03)
[2024-01-30] MEDS: Thiamine Hydrochloride 100 MG Tablet PO (08:52)
[2024-01-30] MEDS: Magnesium Chloride 64 MG Delay Rel.Tablet 128 MG PO (08:52)
[2024-01-30] MEDS: Pantoprazole Sodium 40 MG Tablet PO (08:52)
[2024-01-30] MEDS: Folic Acid 1 MG Tablet PO (08:52)
[2024-01-30] MEDS: proMETHazine 25 MG/ML Syringe IM (08:57)
[2024-01-30 09:03] LABS: Ferritin 124 ng/mL (8-252); Iron 26 ug/dL (50-170); Iron Binding Capacity,Total 219 ug/dL (250-450); PERCENT IRON SATURATION 11.9 % (15.0-55.0)
[2024-01-30] MEDS: Magnesium Sulfate 4gm/100mL 4 GM/100 ML IV.SOLN. IV (09:55)
[2024-01-30 10:00] VITALS: BP 115/54; PULSE 67; RESP 18; TEMP 36.6; TEMP 37; O2SAT 98
[2024-01-30] MEDS: Polyethylene Glycol 3350 17 GM PACKET PO (10:01)
[2024-01-30] MEDS: Senna/Docusate Sodium 1 Tablet PO ×2 (10:01→20:03)
[2024-01-30] MEDS: oxyCODONE 5 MG Tablet 10 MG PO ×4 (10:05→22:30)
--- NOTE | 2024-01-30 12:14 | PN.HOSP_ITS ---
Reason for Visit Reason for Visit: Diagnoses Unspecified abdominal pain (01/29/24) Subjective Subjective Saw patient at bedside this morning, significant other present. Patient was sitting up in bed and appeared mildly uncomfortable due to ongoing abdominal pain. Patient stated that the oxycodone was not very helpful for her and the IV Dilaudid was somewhat helpful for her. She has tolerated clear liquids this morning with Zofran to help with her nausea. Her primary concern was improved pain control. No other new concerns today. On chart review, patient was hospitalized at [facility] in November and again here in December for acute pancreatitis. Has history of alcohol use but has reportedly only used alcohol sparingly for many months, so less likely that alcohol is the cause of her pancreatitis. Unclear etiology for this recurrent pancreatitis at this point. There was concern from Dr. Miller last admission that marijuana use could be playing a role. Patient notably was on IV pain medications essentially [id number] during the previous admission with only mild pain improvement on her report. Objective Data Objective Data Vital Signs: Vital Signs Temp Pulse Resp BP Pulse Ox O2 Del Method 97.8 F 67 18 115/54 L 98 Room Air 01/30/24 10:00 01/30/24 10:00 01/30/24 10:00 01/30/24 10:00 01/30/24 10:00 01/30/24 10:00 Oxygen Delivery Method Room Air Weight: 67.3 kg Body Mass Index (BMI) 27.1 Intake & Output: Intake and Output for Last 24 Hours 01/28/24 01/29/24 01/30/24 23:59 23:59 23:59 Intake Total 3760 / 3760 1999 Balance 3760 / 3760 1999 Lab / Micro Data 01/30/24 07:03 01/30/24 07:03 Labs: Laboratory Results - last 24 hr 01/29/24 12:35: WBC 15.8 H, RBC 4.42, Hgb 13.1, Hct 41.9, MCV 94.8, MCH 29.6, M CHC 31.3 L, RDW Std Deviation 45.2 H, RDW Coeff of Mercedes 12.9, Plt Count 519 H, M PV 12.6 H, Immature Gran % (Auto) 0.500, Neut % (Auto) 83.7 H, Lymph % (Auto) 11.1 L, [place] % (Auto) 3.5, Eos % (Auto) 0.9, Baso % (Auto) 0.3, Absolute Neuts (auto) 13.3 H, Absolute Lymphs (auto) 1.76, Nucleated RBC % 0, Sodium 136, Potassium 4.0, Chloride 104, Carbon Dioxide 21.0, Anion Gap 11, BUN 10, Creatinine 0.65, Est GFR (MDRD) Af Amer 136, Est GFR (MDRD) Non-Af 112, BUN/Creatinine Ratio 15.4, Glucose 122 H, Calcium 8.9, Total Bilirubin 1.00, Direct Bilirubin 0.28, AST 23, ALT 19, Alkaline Phosphatase 151 H, Total Protein 7.2, Albumin 3.0 L, Globulin 4.2, Lipase 468 H, Serum , Qual NEGATIVE 01/30/24 07:03: WBC 11.2 H, RBC 3.52 L, Hgb 10.6 L, Hct 34.4 L, MCV 97.7, MCH 30.1, MCHC 30.8 L, RDW Std Deviation 47.0 H, RDW Coeff of Mercedes 13.1, Plt Count 364, MPV 12.7 H, Immature Gran % (Auto) 0.500, Neut % (Auto) 74.5 H, Lymph % (Auto) 14.0 L, [place] % (Auto) 7.2, Eos % (Auto) 3.5, Baso % (Auto) 0.3, Absolute Neuts (auto) 8.4 H, Absolute Lymphs (auto) 1.57, Nucleated RBC % 0, Sodium 135 L , Potassium 3.6, Chloride 108 H, Carbon Dioxide 21.0, Anion Gap 6, BUN 4 L, C reatinine 0.47 L, Estim Creat Clear Calc 154.57, Est GFR (MDRD) Af Amer 196, Est GFR (MDRD) Non-Af 162, BUN/Creatinine Ratio 8.5 L, Glucose 145 H, Calcium 7.8 L, Phosphorus 2.9, Magnesium 1.5 L, Iron 26 L, TIBC 219 L, Iron Saturation 11.9 L, Ferritin 124, Total Bilirubin 1.20 H, AST 17, ALT 15, Alkaline Phosphatase 118 H , Total Protein 5.7 L, Albumin 2.4 L, Globulin 3.3, Albumin/Globulin Ratio 0.7 L , Folate 18.20 Radiography Diagnostic Testing: Radiology Impression Abdomen/Pelvis CT 01/29/24 18:10 IMPRESSION: (NOT LISTED IN ORDER OF SIGNIFICANCE) Acute pancreatitis. Pelvic ascites. Fatty liver. Other findings as above. Electronically Signed: Hugo Araya MD at 20:07 EDT , Physical Exam Const alert, oriented x3, no apparent distress and average body habitus Constitutional Narrative: Younger female, sitting up in bed, mildly uncomfortable due to ongoing abdominal pain, otherwise conversing normally. General Appearance: cooperative and comfortable HEENT normocephalic, head/scalp atraumatic, hearing grossly normal bilaterally, nasal mucous membranes and turbinates normal and moist oral mucous membranes Eyes PERRL, EOMs intact bilaterally and conjunctivae normal Neck full ROM Chest inspection of chest normal Resp normal respiratory effort, normal air movement, no use of accessory muscles and clear to auscultation bilaterally Cardio regular rate, regular rhythm, no murmurs and peripheral pulses 2+ throughout GI GI Narrative: Abdomen soft and nondistended, mild to moderately tender to palpation in epigastric area. Back/Spine normal ROM Extremity normal to inspection, full ROM and no pedal edema Skin no rashes or lesions noted Neuro moves all extremities and no focal motor deficits Speech: speech normal Psych mental status grossly normal Assessment & Plan Assessment/Plan (1) Pancreatitis: (2) Abdominal pain: (3) Anemia: PLAN: Plan Patient is a 33-year-old female who presented to [facility] ED on 01/29/2024 for recurrent abdominal pain. 1. Recurrent acute pancreatitis with abdominal pain ? GI consulted. Patient hospitalized here from 01/11- for the same concern, Dr. Miller followed during that hospitalization. Etiology of pancreatitis was not clear at that time, though there was concern that marijuana use could be playing a role. Also hospitalized at [facility] in November for the same concern. CT abdomen pelvis on this admission showed diffuse enlargement of the pancreas with peripancreatic edema suggesting acute pancreatitis, fatty liver disease but otherwise unremarkable gallbladder and extrahepatic biliary system and no other concerning findings. Lipase 468. Patient tolerating some clear liquid intake since admission, will continue this diet for now, no need for supplemental IV fluids. Continue pain control with oxycodone 5 mg every 4 hours as needed and IV Dilaudid 0.5 mg every 3 hours as needed. Notably, patient was using IV Dilaudid essentially [id number] during previous admission and stated this was not controlling her pain; have concern for some pain seeking behavior. Appreciate further GI recommendations. 2. Leukocytosis, improving ? WBC count 15 on admit, improved to 11 on hospital day 2. Suspect elevation was primarily due to hemoconcentration with acute pancreatitis possibly contributing, low concern for active infection. No need for antibiotics at this time. 3. Mild chronic iron deficiency anemia ? Hemoglobin 13 on admit but was hemoconcentrated, down to 10.7 on hospital day 2. Baseline hemoglobin appears to be around 11. Iron studies on 01/29 with low iron and ferritin 124, consistent with iron deficiency anemia likely due to her ongoing menstrual periods. Will give IV iron 200 mg doses on 01/29 and 01/30 for supplementation. Monitor CBC daily. 4. Marijuana use ? Reports consistent marijuana use at home. Was concern from GI that this could be contributing to her recurrent pancreatitis. Strongly encouraged cessation on discharge. DVT prophylaxis: Lovenox CODE STATUS: Full code, verified Expected disposition: Home, TBD Total clinical time spent by myself addressing the patient's medical issues, reviewing all the data, and collaborating with patient's care team: 35 minutes. Charges/Coding Visit Charges Inpatient E&M: 18773 Subs Hosp L2
[2024-01-30] MEDS: Sodium Ferric Gluconat 250 MG in 0.9% Normal Saline 250 ML 135 MG IV (14:00)
[2024-01-30 16:00] VITALS: BP 107/77; PULSE 68; RESP 18; TEMP 37.2; O2SAT 98
[2024-01-30] MEDS: Dicyclomine 10 MG Capsule 20 MG PO (22:27)
[2024-01-30] MEDS: MELATONIN 3 MG TABLET PO (22:27)
[2024-01-30 22:31] VITALS: BP 115/81; PULSE 96; RESP 18; TEMP 36.5; O2SAT 100
[2024-01-31] MEDS: HYDROmorphone 1 MG/ML Syringe IV ×4 (02:06→21:42)
--- NOTE | 2024-01-31 05:00 | NURSING ---
answered call light at 0500, pt requesting pain medicine, could hear alarm clock ringing in the background
--- NOTE | 2024-01-31 05:15 | NURSING ---
0515 RN made aware that pts call light was going off. pt calling out for pain meds and ENGINEERING SECRETARY Bernarda stated that she could hear an alarm going off in the background at 0500, when pts next dose of dilaudid just so happened to be due. this RN entered room and pt was found asleep in no distress, pt quickly awakened as she heard this RN enter the room and pt was requesting dilaudid. pt always rating pain 8/10 this shift. this RN educated that pt needs to take po pain meds as first line of treatment instead of IV, as the oxy was due. pt not enthused and started crying. pt accused this RN as calling me a druggie. this RN educated again about policy regarding pain meds. oxy and tyle given at this time. emotional support provided. pt requesting this RN not come back into her room. see MAR for pain med administration times this shift. pt taking dilaudid approx exactly Q3H apart.
[2024-01-31] MEDS: oxyCODONE 5 MG Tablet 10 MG PO ×4 (05:18→23:30)
[2024-01-31] MEDS: Acetaminophen 500 MG Tablet 1000 MG PO ×3 (05:18→21:47)
[2024-01-31 05:19] VITALS: BP 136/95; PULSE 112; RESP 18; TEMP 36.4; O2SAT 98
[2024-01-31 05:44] VITALS: BMI 27.4
[2024-01-31 06:09] LABS: Hematocrit 33.4 % (37-47); Hemoglobin 10.6 g/dL (12.0-15.0); Mean Corp Hgb Conc 31.7 g/dL (32-36); Mean Corpuscular Hgb 30.5 pg (27.0-32.0); Mean Corpuscular Volume 96.3 fL (81-99); Mean Platelet Vol. 12.7 fl (6.2-12.0); Platelet Count 316 K/mm3 (150-450); RBC Distribution Width CV 13.2 % (11.6-14.6); RBC Distribution Width SD 46.2 fl (35.1-43.9); Red Blood Count 3.47 M/mm3 (4.2-5.4); White Blood Count 9.1 K/mm3 (4.4-11.0)
[2024-01-31 06:56] LABS: Anion Gap 7 (5-15); BUN 1 mg/dL (7-18); BUN/Creat Ratio 2.4 RATIO (10-20); Calcium,Total 8.2 mg/dL (8.5-10.1); Chloride 106 mmol/L (98-107); Creatinine, Serum 0.41 mg/dL (0.55-1.02); EST Glomerular Filtration Rate 191 mL/min (>60); Est Glom Filt Rate - Afr Amer 231 mL/min (>60); Estimated Creatinine Clearance 177.57 ml/min; Glucose 99 mg/dL (74-106); Potassium 3.8 mmol/L (3.5-5.1); Sodium Level 136 mmol/L (136-145)
[2024-01-31 07:49] LABS: Vitamin B12 262 pg/mL (211-911)
[2024-01-31] MEDS: Sodium Ferric Gluconat 250 MG in 0.9% Normal Saline 250 ML 135 MG IV (08:41)
[2024-01-31] MEDS: Magnesium Chloride 64 MG Delay Rel.Tablet 128 MG PO (08:52)
[2024-01-31] MEDS: Pantoprazole Sodium 40 MG Tablet PO (08:53)
[2024-01-31] MEDS: Polyethylene Glycol 3350 17 GM PACKET PO (08:53)
[2024-01-31] MEDS: Senna/Docusate Sodium 1 Tablet PO ×2 (08:53→21:47)
[2024-01-31] MEDS: Folic Acid 1 MG Tablet PO (08:53)
--- NOTE | 2024-01-31 10:15 | CASEMGMT ---
RN CM Readmission Note Previous Admission: 01/12/24-01/15/24 Diagnosis: acute pancreatitis DC Disposition: Home Current Admission: 01/29/24 Current Diagnosis: acute pancreatitis Pt dc'd on 01/15/24 to home. Pt to follow up with Dr. Miller. Pt represented to [facility] ER with pain and vomiting. CHIARA LEYVA into pt room, pt states she has an appt with in March. Pt states she does not follow with her previous GI doctor any longer. Pt reports she has been taking her medications as ordered. Pt did not express great interest in speaking with CHIARA LEYVA. She states I have already been through this before and don't need you. Pt tearful. Asked if pt needed her nurse, she states It doesn't do any good. Pt reports she is in pain. Updated pt nurse. Pt denies any homegoing needs. She is aware to ask for the RN CM should she have any needs. DC Plan: Home
[2024-01-31] MEDS: Ondansetron 4 MG/2 ML Vial IV ×2 (11:00→18:22)
[2024-01-31] MEDS: 0.9% Normal Saline (1000mL) 1,000 ML 100 ML IV (11:01)
[2024-01-31] MEDS: Lactobacillis Acidophilus 1 CAP PO ×2 (11:02→21:47)
[2024-01-31 11:20] VITALS: BP 130/85; PULSE 108; RESP 16; TEMP 36.9; O2SAT 100
--- NOTE | 2024-01-31 12:21 | CASEMGMT ---
Social Work- SW met with pt to offer emotional supports d/t reports that pt is tearful and distressed d/t pain. SW empathetically and actively listened, providing support. When SW first entered room, pt was sobbing uncontrollably, eyes swollen, curled on her side around a pad on her abdomen. Pt reports that she has been dealing with pancreatitis since November, when she was first hospitalized. Pt reports that she has an appointment in March with GI, but is having recurrent bouts of extreme 10/10 pain and cannot wait until March Pt reports that she does not want to keep coming to the hospital. Pt aunt is present in room and states that pt has a very high pain tolerance and this is uncharacteristic for her. Pt reports that she missed her overnight pain meds and just received her first dose of pain meds just prior to SW entering room. Pt reports that she missed her son's birthday yesterday d/t being in the hospital. 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 Pt reports that she wants to be back to baseline to be with her children and back to work. Pt denies any suicidal ideation and states that she is just emotional right now. SW worked with pt on deep breathing and thought diffusion/redirection. Pt reports she has been zoning out/disassociating to help deal with pain at times. Pt was able to stop crying and return to a more regulated state by the end of SW visit. Pt states no needs at this time. SW remains available to follow as needed. SARAH Aguilar
[2024-01-31] MEDS: proMETHazine 25 MG/ML Syringe IM (12:53)
[2024-01-31 16:55] VITALS: BP 110/76; PULSE 93; RESP 16; TEMP 36.9; O2SAT 98
--- NOTE | 2024-01-31 16:59 | PCM.PN.HOSP ---
Reason for Visit Reason for Visit: Diagnoses Anemia, unspecified (01/29/24) Acute pancreatitis without necrosis or infection, unspecified (01/29/24) Unspecified abdominal pain (01/29/24) Subjective Subjective Patient tearful and in pain, has not been having significant p.o. intake, some nausea and dry heaves, continued epigastric pain Objective Data Objective Data Vital Signs: Vital Signs Temp Pulse Resp BP Pulse Ox O2 Del Method 98.4 F 93 16 110/76 98 Room Air 01/31/24 16:55 01/31/24 16:55 01/31/24 16:55 01/31/24 16:55 01/31/24 16:55 01/31/24 16:55 Oxygen Delivery Method Room Air Weight: 67.6 kg Body Mass Index (BMI) 27.4 Intake & Output: Intake and Output for Last 24 Hours 01/29/24 01/30/24 01/31/24 23:59 23:59 23:59 Intake Total 3760 / 3760 3370 / 3370 370 / 370 Balance 3760 / 3760 3370 / 3370 370 / 370 Lab / Micro Data 01/31/24 05:55 01/31/24 05:55 Labs: Laboratory Results - last 24 hr 01/30/24 07:03: Vitamin B12 262 01/31/24 05:55: WBC 9.1, RBC 3.47 L, Hgb 10.6 L, Hct 33.4 L, MCV 96.3, MCH 30.5, MCHC 31.7 L, RDW Std Deviation 46.2 H, RDW Coeff of Mercedes 13.2, Plt Count 316, MPV 12.7 H, Sodium 136, Potassium 3.8, Chloride 106, Carbon Dioxide 23.0, Anion Gap 7, BUN 1 L, Creatinine 0.41 L, Estim Creat Clear Calc 177.57, Est GFR (MDRD) Af Amer 231, Est GFR (MDRD) Non-Af 191, BUN/Creatinine Ratio 2.4 L, Glucose 99, Calcium 8.2 L Physical Exam Narrative General: Alert, tearful and distressed HEENT: Atraumatic, normocephalic Eyes: Anicteric, normal conjunctiva, extraocular movements grossly intact Neck: Supple Respiratory: Clear to auscultation bilaterally, normal respiratory effort Cardiovascular: Regular rate and rhythm GI: Soft, tender primarily in epigastric region Extremities: No edema Musculoskeletal: Moving all extremities Neuro: No overt focal neurological deficits Skin: No rashes appreciated Psych: Tearful and upset Assessment & Plan Assessment/Plan (1) Pancreatitis: (2) Abdominal pain: (3) Anemia: PLAN: Plan Patient is a 33-year-old female who presented to [facility] ED on 01/29/2024 for recurrent abdominal pain. #Recurrent acute pancreatitis with abdominal pain -Recent hospitalization 01/11 through 01/14 for same concern and evaluated by GI at that time -Unclear underlying etiology -CT abdomen pelvis on this admission showed diffuse enlargement of the pancreas with peripancreatic edema suggesting acute pancreatitis, fatty liver disease but otherwise unremarkable gallbladder and extrahepatic biliary system and no other concerning findings -Lipase 468 -Clear liquids, advance as able but patient not yet ready to advance diet -Will give some IV fluids given poor p.o. intake and pancreatitis -Pain control #Leukocytosis- resolved -15 on admission however has improved, possibly secondary to hemoconcentration -Do not suspect additional infection and is normalized so no antibiotics at this time #Mild chronic iron deficiency anemia ? Hemoglobin 13 on admit but was hemoconcentrated, down to 10.7 on hospital day 2 - Baseline hemoglobin appears to be around 11. Iron studies on 01/29 with low iron and ferritin 124, consistent with iron deficiency anemia likely due to her ongoing menstrual periods -Will give IV iron 200 mg doses on 01/29 and 01/30 for supplementation. Monitor CBC daily. #Marijuana use ? Reports consistent marijuana use at home. -Advise cessation DVT prophylaxis: Lovenox Charges/Coding Visit Charges Inpatient E&M: 67656 [facility] Hosp L1
--- NOTE | 2024-01-31 17:57 | CON.PCM.GI_ITS ---
HPI Consult Data Date of Consult: 01/31/24 HPI Narrative Reason for Consultation: pancreatitis HPI Narrative: FEROZ CHEEK, is a 33 F With recent hospitalization for acute pancreatitis less than 2 weeks prior to her admission of undetermined etiology who presented with abdominal pain. Patient symptoms started the night prior to coming in. Pain was located in the epigastric region radiating to the back. Associated symptoms included nausea and vomiting. Patient presented to the emergency department given the persistent of her symptoms. Was found to have slightly elevated lipase levels. Subsequently admitted for further management. Previously she was admitted in [facility] and was seen by GI doctor. She had right upper quadrant sonogram which was negative. CT shows pancreatitis but without necrosis abscess or pseudocyst. [facility]. Continue IV fluid. Initially n.p.o. changed to clear liquid. Patient was still in significant pain. Etiology of acute pancreatitis unclear as patient is states she occasionally drinks alcohol. Had cholecystectomy in the past. Does not have family history of pancreatitis or congenital pancreatic duct disorder. Conservative management. MRCP done shows no choledocholithiasis. Edematous pancreas with peripancreatic fat and stranding with no abnormal pancreatic ductal dilatation consistent with findings of pancreatitis. [facility] Medical History (Updated 01/30/24 @ 15:[address] Ray Grimm, DO) Pancreatitis IBS (irritable bowel syndrome) Contusion of unspecified foot, initial encounter Unspecified sprain of unspecified foot, initial encounter Home Medications ?Medication ?Instructions ?Recorded ?Last Taken ?Type Lactobacillus acidophilus 500 500 mmu cells PO BID GUT HEALTH 01/12/24 01/12/24 History million cell capsule albuterol sulfate 90 mcg/actuation 1 - 2 puff inhalation Q6H PRN 01/12/24 Unknown History aerosol inhaler ASTHMA folic acid 1 mg tablet 1 mg PO DAILY SUPPLEMENT 01/12/24 01/12/24 History melatonin 10 mg tablet 10 - 20 mg PO QHS SLEEP 01/12/24 01/11/24 History thiamine HCl (vitamin B1) 100 mg 100 mg PO DAILY SUPPLEMENT 01/12/24 01/12/24 History tablet omeprazole 40 mg capsule,delayed 40 mg PO DAILY GERD 30 days #30 01/15/24 Unknown Rx release caps potassium chloride 20 mEq 40 meq (2 x 20 mEq) PO BIDCM low 01/15/24 Unknown Rx tablet,extended release(part/cryst) potassium 5 days #20 tabs dicyclomine 20 mg tablet 20 mg PO BID PRN abdominal pain 01/18/24 Unknown Rx #60 tabs magnesium 200 mg tablet 200 mg PO DAILY deficient in mag 01/30/24 Unknown History and potassium Allergy/AdvReac Type Severity Reaction Status Date / Time codeine AdvReac Intermediate Vomiting Verified 01/29/24 12:11 Surgical History History of cholecystectomy Social History Smoking Status: Current every day smoker tobacco type: cigarettes ROS ROS Narrative GENERAL: denies fever, chills, night sweats, weight loss, anorexia HEENT: denies headache, sinus congestion, or drainage, dysphagia RESPIRATORY: denies cough, sputum production, shortness of breath, dyspnea on exertion CARDIAC: denies chest pain, palpitations, orthopnea, PND GASTROINTESTINAL: abdominal pain, nausea, vomiting, melena, GENITOURINARY: denies dysuria, urgency, frequency, heamaturia EXTREMITY: denies swelling MUSCULOSKELETAL: denies current joint pain or tenderness NEUROLOGIC: denies focal numbness, weakness, tingling HEMATOLOGIC: denies easy bruising and/or hemorrhage INTEGUMENT: denies rashes PSYCHIATRIC: denies suicidal or homicidal ideation Physical Exam Narrative General: Alert, tearful and distressed HEENT: Atraumatic, normocephalic Eyes: Anicteric, normal conjunctiva, extraocular movements grossly intact Neck: Supple Respiratory: Clear to auscultation bilaterally, normal respiratory effort Cardiovascular: Regular rate and rhythm GI: Soft, tender primarily in epigastric region Extremities: No edema Musculoskeletal: Moving all extremities Neuro: No overt focal neurological deficits Skin: No rashes appreciated Psych: Tearful and upset Lab / Micro Data 01/31/24 05:55 01/31/24 05:55 Labs: Laboratory Results - last 24 hr 01/30/24 07:03: Vitamin B12 262 01/31/24 05:55: WBC 9.1, RBC 3.47 L, Hgb 10.6 L, Hct 33.4 L, MCV 96.3, MCH 30.5, MCHC 31.7 L, RDW Std Deviation 46.2 H, RDW Coeff of Mercedes 13.2, Plt Count 316, MPV 12.7 H, Sodium 136, Potassium 3.8, Chloride 106, Carbon Dioxide 23.0, Anion Gap 7, BUN 1 L, Creatinine 0.41 L, Estim Creat Clear Calc 177.57, Est GFR (MDRD) Af Amer 231, Est GFR (MDRD) Non-Af 191, BUN/Creatinine Ratio 2.4 L, Glucose 99, C alcium 8.2 L Assessment & Plan Assessment/Plan (1) Pancreatitis: (2) Abdominal pain: PLAN: Plan Recurrent acute pancreatitis with abdominal pain Patient hospitalized here from 01/11- for the same concern, Dr. Miller followed during that hospitalization. Etiology of pancreatitis was not clear at that time, though there was concern that marijuana use could be playing a role. Also hospitalized at [facility] in November for the same concern. CT abdomen pelvis on this admission showed diffuse enlargement of the pancreas with peripancreatic edema suggesting acute pancreatitis, fatty liver disease but otherwise unremarkable gallbladder and extrahepatic biliary system and no other concerning findings. Lipase 468. Patient tolerating some clear liquid intake since admission, will continue this diet for now, no need for supplemental IV fluids. She said that she was only ingesting marijuana Gummies and was not smoking marijuana. I have talked with the family and told her that her IgG4 is negative and MRCP does not show pancreatic divisum. However she continues to have what appears to be smoldering pancreatitis. There have been some studies with prophylactic pancreatic duct stenting to relieve the pancreatic duct hypertension associated with the onset and progression of acute pancreatitis. Early endoscopic pancreatic stenting in AP patients effectively shortened the fasting time and length of hospital stay and did not increase the risk of adverse events, , or local complications. Therefore she has agreed to undergo ERCP with stenting. She was explained alternatives, risk, benefits including not withstanding bleeding, infection, sepsis, perforation, need for emergent urgent . She will have an ASA of 3. Charges/Coding Visit Charges Inpatient E&M: 40848 Init Hosp L3
[2024-01-31 19:09] LABS: Internal QC Validated? YES +Cl - CLEAR BKGD; Pregnancy, Urine Negative Negative
[2024-01-31 19:11] LABS: Osmolality, Urine 207 mOsm/KG
[2024-01-31] MEDS: 0.9% Saline Lock 10 ML Syringe IV (21:43)
[2024-01-31] MEDS: Dicyclomine 10 MG Capsule 20 MG PO (21:55)
[2024-01-31 22:21] VITALS: BP 125/72; PULSE 109; RESP 16; TEMP 36.9; O2SAT 97
[2024-02-01] VITALS (12 sets, daily range): BP systolic 113–126; BP diastolic 70–88; PULSE 76–103; RESP 16–18; TEMP 36.1–37.1; O2SAT 95–98; BMI 27.3
[2024-02-01] MEDS: HYDROmorphone 1 MG/ML Syringe IV ×6 (01:27→20:25)
[2024-02-01] MEDS: Ondansetron 4 MG/2 ML Vial IV ×3 (01:28→17:01)
[2024-02-01] MEDS: 0.9% Saline Lock 10 ML Syringe IV ×3 (05:33→17:02)
[2024-02-01] MEDS: proMETHazine 25 MG/ML Syringe IM (06:32)
[2024-02-01 07:02] LABS: Absolute Lymphocyte Count 2.32 X10^3/uL (0.83-4.51); Absolute Neutrophil Count 6.1 X10^3/uL (2.0-7.7); Basophil# 0.04 X10^3/uL; Basophil% 0.4 % (0-1); Eosinophil# 0.42 X10^3/uL; Eosinophils% 4.4 % (0-5); Hematocrit 33.7 % (37-47); Hemoglobin 10.6 g/dL (12.0-15.0); Lymphocyte # 2.32 X10^3/ul (0.83-4.51); Lymphocyte % 24.2 % (19-41); Mean Corp Hgb Conc 31.5 g/dL (32-36); Mean Corpuscular Hgb 29.9 pg (27.0-32.0); Mean Corpuscular Volume 95.2 fL (81-99); Mean Platelet Vol. 13.2 fl (6.2-12.0); Monocyte% 7.3 % (0-10); NRBC Flagged by Analyzer 0 % (0-5); Neutrophil # 6.08 X10^3/uL (2.7-7.7); Neutrophil % 63.3 % (47-70); Platelet Count 326 K/mm3 (150-450); RBC Distribution Width CV 13.2 % (11.6-14.6); RBC Distribution Width SD 46.3 fl (35.1-43.9); Red Blood Count 3.54 M/mm3 (4.2-5.4); White Blood Count 9.6 K/mm3 (4.4-11.0)
[2024-02-01 07:22] LABS: Partial Thromboplast Time 44.1 Seconds (24.1-36.2)
[2024-02-01 07:52] LABS: International Normalized Ratio 1.3; Prothrombin Time (Protime)PT. 16.1 SECONDS (11.7-14.9)
[2024-02-01 07:56] LABS: Anion Gap 9 (5-15); BUN 1 mg/dL (7-18); BUN/Creat Ratio 2.2 RATIO (10-20); Calcium,Total 8.4 mg/dL (8.5-10.1); Chloride 108 mmol/L (98-107); Creatinine, Serum 0.46 mg/dL (0.55-1.02); EST Glomerular Filtration Rate 169 mL/min (>60); Est Glom Filt Rate - Afr Amer 205 mL/min (>60); Estimated Creatinine Clearance 158.16 ml/min; Glucose 107 mg/dL (74-106); Potassium 3.1 mmol/L (3.5-5.1); Sodium Level 138 mmol/L (136-145)
[2024-02-01] MEDS: Potassium Chloride 10mEq/100mL 10 MEQ/100 ML IV.SOLN. 100 MEQ IV BOLUS ×2 (08:37→10:07)
[2024-02-01] MEDS: Enoxaparin 40 MG/0.4 ML Syringe SC (10:07)
[2024-02-01] MEDS: Lactated Ringers 1,000 ML 15 ML IV (13:12)
--- NOTE | 2024-02-01 13:18 | PRE.ANES_ITS ---
ASA Classification* ASA Classification ASA Classification: 2 Assessment & Plan Anesthesia* Anesthesia Assessment Anesthesia Assessment: Discussed sedation and/or anesthesia options, risks, benefits, and alternatives with patient/parents/legal guardian/POA. Questions invited. The patient/parents/legal guardian/POA seems to understand and agrees to proceed with anesthesia plan. Reviewed the physical assessment, medical history, allergy history and patient home medications list prior to surgery/procedure/anesthetic and documented any changes. Performed airway and anesthesia risk assessments. Anesthesia Type Anesthesia Type: General Anesthesia Focused Assessment* Temperature: 98.3 F Pulse Rate: 76 Blood Pressure: 126/83 Respiratory Rate: 18 Pulse Ox: 97 Airway Assessment Mouth opens: >3 cm Mallampati Score: II Focused Labs Anesthesia Preop lab: CBC WBC 9.6 K/mm3 (4.4-11.0) 02/01/24 06:25 RBC 3.54 M/mm3 (4.2-5.4) L 02/01/24 06:25 Hgb 10.6 g/dL (12.0-15.0) L 02/01/24 06:25 Hct 33.7 % (37-47) L 02/01/24 06:25 Plt Count 326 K/mm3 (150-450) 02/01/24 06:25 CHEMISTRY Potassium 3.1 mmol/L (3.5-5.1) L 02/01/24 06:25 Sodium 138 mmol/L (136-145) 02/01/24 06:25 Magnesium 1.5 mg/dL (1.6-2.6) L 01/30/24 07:03 Phosphorus 2.9 mg/dL (2.5-4.9) 01/30/24 07:03 BUN 1 mg/dL (7-18) L 02/01/24 06:25 Creatinine 0.46 mg/dL (0.55-1.02) L 02/01/24 06:25 Glucose 107 mg/dL (74-106) H 02/01/24 06:25 COAG PT 16.1 SECONDS (11.7-14.9) H 02/01/24 06:25 Urine Test Negative Negative 01/31/24 18:30 Pre-Assessment Diagnosis/Proposed Procedure Planned Operative Procedure(s): ERCP Anesthesia History Anesthesia History - hris manager: Anesthesia History - hris manager Hx Hospitalization Any Problems With Anesthesia No 02/01/24 00:51 Cholinesterase deficiency You/Your Family Experience fever (hyperthermia) with Relationship Recent Exposure to Contagious No 02/01/24 00:51 Disease Does patient have nerve No 02/01/24 00:51 stimulator Patient instructed to have device shut off --Does patient have Pacemaker or ICD? When Was Last Pacemaker Check QUESTION #4 FULL TEXT: You/Your Family Experience fever (hyperthermia) with Anesthesia Last Oral Intake Last Oral intake: Last Oral Intake NPO since Meds taken in AM with sips of water? Meds patient instructed to take am of surgery PONV PONV - hris manager: PONV - hris manager Female HX of Motion Sickness HX of N/V After Surgery Non-Smoker Duration of Surgery greater than 60 minutes Number of Risk Factors PONV Score Height & Weight Height & Weight: Anesthesia: Height & Weight Height 5 ft 2 in 01/31/24 10:25 Weight: 67.5 kg 02/01/24 06:00 Body Mass Index (BMI) 27.3 02/01/24 06:00 Respiratory Assessment Respiratory Assessment - hris manager: Respiratory Tract Infection Hx - hris manager Hx Respiratory Tract Infection No 02/01/24 00:51 STOP Sleep Apnea STOP Sleep Apnea - hris manager: STOP Sleep Apnea - hris manager Hx Hypertension No 01/29/24 16:13 Hx Sleep Apnea No 01/29/24 16:13 CPAP BIPAP Do you snore loudly (louder No 01/29/24 16:13 than talking or can be heard Do you often feel tired/ No 01/29/24 16:13 fatigued/ sleepy during daytime? Has anyone observed you stop No 01/29/24 16:13 breathing during sleep? STOP Results Negative 01/29/24 16:13 QUESTION #5 FULL TEXT : Do you snore loudly (louder than talking or can be heard through closed doors)? Tobacco Use History Tobacco Use History - hris manager: Tobacco Use History - hris manager Tobacco Use Smoking Status Current every day smoker 01/30/24 11:14 Hx Tobacco Use Yes 01/29/24 16:13 Years Smoking Packs Smoked per Day Smoking Cessation Date was within the last 15 years Hx Smoking Cessation Date Hx Smoking Cessation Counseling Hematologic Medial History Hematologic Hx - hris manager: Hematologic Medical Hx - style advisor Hx of Blood Transfusion No 01/29/24 16:13 Hx of Transfusion in last 3 No 01/29/24 16:13 Months Date of Last Transfusion (if within last 3 months) Ever experience any problems No 01/29/24 16:13 with transfusion(s)? Specify any problems Hx of Preganancy in last 3 No 01/29/24 16:13 Months Nurse Filling Out Transfusion CHRISTIAN 01/29/24 16:13 & Questions: Date: 01/29/24 01/29/24 16:13 Time: 16:16 01/29/24 16:13 Patient unable to answer at this time (ie. confused, unrespo /Reproduction History /Reproductive History - hris manager: /Reproductive Hx- hris manager Hx Now No 02/01/24 00:51 Gestational Age (in weeks): EDC: Hx Hx Para Hx Section SAB No 02/01/24 00:51 Active Medications Active Medications: Current Medications Generic Name Dose Route Start Last Admin Trade Name Freq PRN Reason Stop Dose Admin Acetaminophen 1,000 mg 01/29/24 16:19 02/01/24 04:55 Acetaminophen 500 Mg Tablet PO Not Given Q8 LATASHA Albuterol Sulfate 2.5 mg 01/29/24 16:19 Albuterol 2.5 Mg/3 Ml Vial.Neb. INHALATION Q2H PRN PRN SOB &/OR WHEEZING Dicyclomine HCl 20 mg 01/29/24 18:27 01/31/24 21:55 Dicyclomine 10 Mg Capsule PO 20 mg BID PRN PRN Administration abdominal pain Enoxaparin Sodium 40 mg 02/01/24 10:00 02/01/24 10:07 Enoxaparin 40 Mg/0.4 Ml Syringe SC 40 mg DAILY LATASHA Administration Folic Acid 1 mg 01/30/24 08:00 02/01/24 07:40 Folic Acid 1 Mg Tablet PO Not Given BREAKFAST LATASHA Hydromorphone HCl 0.5 - 1 mg 01/29/24 16:19 02/01/24 11:38 Hydromorphone 1 Mg/Ml Syringe IV 1 mg Q3H PRN PRN Administration Pain Score 6-10 Lactated Ringer's 1,000 mls @ 15 mls/hr 02/01/24 13:15 02/01/24 13:12 IV 15 mls/hr .Q48H LATASHA Administration Magnesium Chloride 128 mg 01/30/24 10:00 02/01/24 10:37 Magnesium Chloride 64 Mg Delay Rel.Tablet PO Not Given DAILY LATASHA Melatonin 3 mg 01/29/24 16:19 01/30/24 22:27 Melatonin 3 Mg Tablet PO 3 mg QHS PRN PRN Administration INSOMNIA Ondansetron HCl 4 mg 01/29/24 16:19 02/01/24 05:35 Ondansetron 4 Mg/2 Ml Vial IV 4 mg Q4H PRN PRN Administration NAUSEA/VOMITING Oxycodone HCl 10 mg 01/29/24 16:19 01/31/24 23:30 Oxycodone 5 Mg Tablet PO 10 mg Q4H PRN PRN Administration Pain Score 4-10 Pantoprazole Sodium 40 mg 01/30/24 10:00 02/01/24 10:38 Pantoprazole Sodium 40 Mg Tablet PO Not Given DAILY [facility] Polyethylene Glycol 17 gm 01/30/24 10:00 02/01/24 10:37 Polyethylene Glycol 3350 17 Gm Packet PO Not Given DAILY [facility] Promethazine HCl 25 mg 01/29/24 16:19 02/01/24 06:32 Promethazine 25 Mg/Ml Syringe IM 25 mg Q6H PRN PRN Administration Breakthrough nausea/vomiting Senna/Docusate Sodium 1 tablet 01/30/24 10:00 02/01/24 10:38 Senna/Docusate Sodium 1 Tablet PO Not Given BID [facility] Sodium Chloride 10 - 40 ml 01/29/24 16:29 02/01/24 11:38 0.9% Saline Lock 10 Ml Syringe IV 10 ml UD PRN Administration SALINE FLUSH Thiamine HCl 100 mg 01/30/24 08:00 02/01/24 07:40 Thiamine Hydrochloride 100 Mg Tablet PO Not Given BREAKFAST [facility] PFSH Medical History (Updated 01/30/24 @ 15:[address] Ray Grimm, DO) Pancreatitis IBS (irritable bowel syndrome) Contusion of unspecified foot, initial encounter Unspecified sprain of unspecified foot, initial encounter Home Medications ?Medication ?Instructions ?Recorded ?Last Taken ?Type Lactobacillus acidophilus 500 500 mmu cells PO BID GUT HEALTH 01/12/24 01/12/24 History million cell capsule albuterol sulfate 90 mcg/actuation 1 - 2 puff inhalation Q6H PRN 01/12/24 Unknown History aerosol inhaler ASTHMA folic acid 1 mg tablet 1 mg PO DAILY SUPPLEMENT 01/12/24 01/12/24 History melatonin 10 mg tablet 10 - 20 mg PO QHS SLEEP 01/12/24 01/11/24 History thiamine HCl (vitamin B1) 100 mg 100 mg PO DAILY SUPPLEMENT 01/12/24 01/12/24 History tablet omeprazole 40 mg capsule,delayed 40 mg PO DAILY GERD 30 days #30 01/15/24 Unknown Rx release caps potassium chloride 20 mEq 40 meq (2 x 20 mEq) PO BIDCM low 01/15/24 Unknown Rx tablet,extended release(part/cryst) potassium 5 days #20 tabs dicyclomine 20 mg tablet 20 mg PO BID PRN abdominal pain 01/18/24 Unknown Rx #60 tabs magnesium 200 mg tablet 200 mg PO DAILY deficient in mag 01/30/24 Unknown History and potassium Allergy/AdvReac Type Severity Reaction Status Date / Time codeine AdvReac Intermediate Vomiting Verified 01/29/24 12:11 Surgical History History of cholecystectomy Social History Smoking Status: Current every day smoker tobacco type: cigarettes Review of Systems (Anesthesia) ROS Narrative System reviewed and no additional complaints, except as documented.
--- NOTE | 2024-02-01 14:40 | RAD_ITS ---
ERCP INDICATION: Abdominal pain. TECHNIQUE: 310 seconds of fluoroscopy the abdomen was utilized in operating room during an EDC ERCP and 7 images submitted for interpretation. FINDINGS: Status post cholecystectomy. Narrowing of the distal common bile duct possibly from structure. A biliary stent was placed. RAD/ERCP Biliary/Pancreas IMPRESSION: Suspect stricture of the distal common bile duct treated with a biliary stent. Electronically Signed: Abdoul Smith MD at 16:12 EDT ,
--- NOTE | 2024-02-01 16:05 | OP.CCLET_ITS ---
02/01/2024 Rossi Doyle Do Re : ERCP procedure for Jayla Kaiser Dear Vivek This procedure was performed on Thursday, February 01, 2024. My impressions and recommendations are as follows: Impressions : - The patient has had a cholecystectomy. - An irregularity was found in the ventral pancreatic duct in the head of the pancreas. - Choledocholithiasis was found. Complete removal was accomplished by biliary sphincterotomy and balloon extraction. - A biliary sphincterotomy was performed. - The biliary tree was swept. - The right main hepatic duct was successfully dilated. - The lower third of the main bile duct was successfully dilated. - One temporary stent was placed into the common bile duct. Recommendations : Lactated Ringers at 200ml/hr Endoscopic ultrasound to evaluate the stricture in the head of the pancreas My findings are described in the full procedure note, which is enclosed. If I can be of further assistance, please feel free to contact me at . Sincerely, Raj Miller DO 02/01/2024 4:04:55 PM This report has been signed electronically.
--- NOTE | 2024-02-01 16:05 | OP.ERCP_ITS ---
Patient Name: Jayla Kaiser Procedure Date: 02/01/2024 2:29 PM Date of : 1990 Age: 33 Procedure: ERCP Indications: Acute recurrent pancreatitis, Acute recurrent pancreatitis/ unknown etiology Providers: Raj Miller DO Medicines: Monitored Anesthesia Care Patient Profile: This is a 33 year old female. Refer to note in patient chart for documentation of history and physical. Patient has symptoms of acute right upper quadrant abdominal pain and acute epigastric abdominal pain. This patient has no history of previous ERCP. This patient has no history of surgical alteration of the upper digestive tract anatomy. She is status post laparoscopic cholecystectomy in the distant past. Complications: No immediate complications. Procedure: Pre-Anesthesia Assessment: - Prior to the procedure, a History and Physical was performed, and patient medications and allergies were reviewed. The patient is competent. The risks and benefits of the procedure and the sedation options and risks were discussed with the patient. All questions were answered and informed consent was obtained. Patient identification and proposed procedure were verified by the physician in the pre-procedure area. Mental Status Examination: alert and oriented. Airway Examination: normal oropharyngeal airway and neck mobility. Respiratory Examination: clear to auscultation. CV Examination: normal. ASA Grade Assessment: II - A patient with mild systemic disease. After reviewing the risks and benefits, the patient was deemed in satisfactory condition to undergo the procedure. The anesthesia plan was to use general anesthesia. Immediately prior to administration of medications, the patient was re-assessed for adequacy to receive sedatives. The heart rate, respiratory rate, oxygen saturations, blood pressure, adequacy of pulmonary ventilation, and response to care were monitored throughout the procedure. The physical status of the patient was re-assessed after the procedure. After obtaining informed consent, the scope was passed under direct vision. Throughout the procedure, the patient's blood pressure, pulse, and oxygen saturations were monitored continuously. The Duodenoscope was introduced through the mouth, and advanced to the duodenum and used to inject contrast into the bile duct and ventral pancreatic duct. The ERCP was accomplished without difficulty. The patient tolerated the procedure well. Scope In: 2:59:22 PM Scope Out: 3:51:01 PM Total Procedure Duration Time 0 hours 51 minutes 39 seconds Findings: The pancake professional film was normal. The esophagus was successfully intubated under direct vision. The scope was advanced to a normal major papilla in the descending duodenum without detailed examination of the pharynx, larynx and associated structures, and upper GI tract. The upper GI tract was grossly normal. The bile duct was deeply cannulated with the short-nosed traction sphincterotome. Contrast was injected. I personally interpreted the bile duct and pancreatic duct images. There was brisk flow of contrast through the ducts. Image quality was adequate. Contrast extended to the entire biliary tree. A cholecystectomy had been performed. A straight Roadrunner wire was passed into the biliary tree. A 5 mm biliary sphincterotomy was made with a monofilament traction (standard) sphincterotome using ERBE electrocautery. Moderate bleeding from the sphincterotomy stopped within 5 minutes. The biliary tree was swept with a 12 mm balloon starting at the bifurcation. Sludge was swept from the duct. All stones were removed. Dilation of the right main hepatic duct with 5-7-8.5 Fr catheter dilator was successful. Dilation of the lower third of the main bile duct with 5-7-8.5 Fr catheter dilator was successful. One 10 Fr by 5 cm temporary stent was placed 5 cm into the common bile duct. Bile flowed through the stent. The stent was in good position. The ventral pancreatic duct was deeply cannulated with the short-nosed traction sphincterotome. Contrast was injected. Opacification of the ventral pancreatic duct in the head of the pancreas was incomplete. The maximum diameter of the ducts was 1 mm. Localized irregularity of the pancreatic duct was seen in the ventral pancreatic duct in the head of the pancreas. A 0.035 inch x 260 cm angled Hydra Jagwire was passed into the ventral pancreatic duct. Impression: - The patient has had a cholecystectomy. - An irregularity was found in the ventral pancreatic duct in the head of the pancreas. - Choledocholithiasis was found. Complete removal was accomplished by biliary sphincterotomy and balloon extraction. - A biliary sphincterotomy was performed. - The biliary tree was swept. - The right main hepatic duct was successfully dilated. - The lower third of the main bile duct was successfully dilated. - One temporary stent was placed into the common bile duct. Recommendation: Lactated Ringers at 200ml/hr Endoscopic ultrasound to evaluate the stricture in the head of the pancreas Procedure Code(s): --- Professional --- 61931, Endoscopic retrograde cholangiopancreatography (ERCP); with placement of endoscopic stent into biliary or pancreatic duct, including pre- and post-dilation and guide wire passage, when performed, including sphincterotomy, when performed, each stent 31169, Endoscopic retrograde cholangiopancreatography (ERCP); with removal of calculi/debris from biliary/pancreatic duct(s) 55193, 26, Combined endoscopic catheterization of the biliary and pancreatic ductal systems, radiological supervision and interpretation 24424, Unlisted procedure, biliary tract CPT copyright 2021 [employer]. All rights reserved. The codes documented in this report are preliminary and upon soft work wrapper examiner review may be revised to meet current compliance requirements. Raj Miller DO 02/01/2024 4:04:55 PM This report has been signed electronically. Number of Addenda: 0 Note Initiated On: 02/01/2024 2:29 PM
--- NOTE | 2024-02-01 16:11 | PCM.POST.ANE ---
Anesthesia: Postop Eval I Current Vital Signs Temperature: 97 F Pulse Rate: 94 Blood Pressure: 117/75 Respiratory Rate: 16 Pulse Ox: 98 Oxygen Delivery Method: Room Air Assessment Airway patent: Yes Spontaneous unlabored respirations: Yes Mental status: Awake and Calm nausea: No Vomiting: No Anesthesia Complication: No Fluid Hydration Crystalloid volume administer (ml): 1,100 Total IV fluid infused: 1,100 Progress Note Anesthesia document: Postop Eval 1 completed: Yes
--- NOTE | 2024-02-01 16:14 | PN.HOSP_ITS ---
Reason for Visit Reason for Visit: Diagnoses Anemia, unspecified (01/29/24) Acute pancreatitis without necrosis or infection, unspecified (01/29/24) Unspecified abdominal pain (01/29/24) Subjective Subjective Patient seen after stent, has a little bit of abdominal pain without significant nausea, feeling little bit tired right now but no other complaints Objective Data Objective Data Vital Signs: Vital Signs Temp Pulse Resp BP Pulse Ox O2 Del Method 97 F L 94 16 117/75 98 Room Air 02/01/24 16:11 02/01/24 16:11 02/01/24 16:11 02/01/24 16:11 02/01/24 16:11 02/01/24 16:11 Oxygen Delivery Method Room Air Weight: 67.5 kg Body Mass Index (BMI) 27.3 Intake & Output: Intake and Output for Last 24 Hours 01/30/24 01/31/24 02/01/24 23:59 23:59 23:59 Intake Total 3370 / 3370 1520 / 1520 200 / 200 Balance 3370 / 3370 1520 / 1520 200 / 200 Lab / Micro Data 02/01/24 06:25 02/01/24 06:25 Labs: Laboratory Results - last 24 hr 01/31/24 18:30: Urine Osmolality 207, Urine Test Negative 02/01/24 06:25: WBC 9.6, RBC 3.54 L, Hgb 10.6 L, Hct 33.7 L, MCV 95.2, MCH 29.9, MCHC 31.5 L, RDW Std Deviation 46.3 H, RDW Coeff of Mercedes 13.2, Plt Count 326, MPV 13.2 H, Immature Gran % (Auto) 0.400, Neut % (Auto) 63.3, Lymph % (Auto) 24.2, [place] % (Auto) 7.3, Eos % (Auto) 4.4, Baso % (Auto) 0.4, Absolute Neuts (auto) 6.1, Absolute Lymphs (auto) 2.32, Nucleated RBC % 0, PT 16.1 H, INR 1.3, APTT 44.1 H, Sodium 138, Potassium 3.1 L, Chloride 108 H, Carbon Dioxide 21.0, Anion Gap 9, BUN 1 L, Creatinine 0.46 L, Estim Creat Clear Calc 158.16, Est GFR (MDRD) Af Amer 205, Est GFR (MDRD) Non-Af 169, BUN/Creatinine Ratio 2.2 L, Glucose 107 H, Calcium 8.4 L Radiography Diagnostic Testing: Radiology Impression Endo Retro Cholangiopancreatogram 02/01/24 14:40 IMPRESSION: Suspect stricture of the distal common bile duct treated with a biliary stent. Electronically Signed: Abdoul Smith MD at 16:12 EDT , Physical Exam Narrative General: Alert, oriented, no apparent distress HEENT: Atraumatic, normocephalic Eyes: extraocular movements grossly intact Neck: Supple Respiratory: normal respiratory effort Cardiovascular: no edema appreciated GI: nondistended, little bit tender periumbilically but no rebound, guarding, rigidity Extremities: Moving all extremities Neuro: No overt focal neurological deficits Psych: Cooperative Assessment & Plan Assessment/Plan (1) Pancreatitis: (2) Abdominal pain: (3) Anemia: PLAN: Plan Patient is a 33-year-old female who presented to [facility] ED on 01/29/2024 for recurrent abdominal pain. #Recurrent acute pancreatitis with abdominal pain/choledocholithiasis -Recent hospitalization 01/11 through 01/14 for same concern and evaluated by GI at that time -Unclear underlying etiology -CT abdomen pelvis on this admission showed diffuse enlargement of the pancreas with peripancreatic edema suggesting acute pancreatitis, fatty liver disease but otherwise unremarkable gallbladder and extrahepatic biliary system and no other concerning findings -Lipase 468 -Clear liquids, advance as able but patient not yet ready to advance diet -Will give some IV fluids given poor p.o. intake and pancreatitis -Pain control -01/31: Patient underwent ERCP today which found irregularity in ventral pancreatic duct in the head of the pancreas and choledocholithiasis with sphincterotomy and balloon extraction as well as biliary sweep, temporary stent was placed. Continue pain control, IV fluids #Mild chronic iron deficiency anemia ? Hemoglobin 13 on admit but was hemoconcentrated, down to 10.7 on hospital day 2 - Baseline hemoglobin appears to be around 11. Iron studies on 01/29 with low iron and ferritin 124, consistent with iron deficiency anemia likely due to her ongoing menstrual periods -Will give IV iron 200 mg doses on 01/29 and 01/30 for supplementation. Monitor CBC daily. -01/31: Hemoglobin has been stable, repeat in the a.m. #Marijuana use ? Reports consistent marijuana use at home. -Advise cessation #Leukocytosis- resolved -15 on admission however has improved, possibly secondary to hemoconcentration -Do not suspect additional infection and is normalized so no antibiotics at this time DVT prophylaxis: Lovenox Charges/Coding Visit Charges Inpatient E&M: 61777 Subs Hosp L1
[2024-02-01] MEDS: Lactated Ringers 1,000 ML 150 ML IV ×2 (16:57→23:58)
--- NOTE | 2024-02-01 17:08 | POSTOPAN2_ITS ---
Anesthesia Postop Eval I Sum Postop Eval Completion status Anesthesia document: Postop Eval 1 completed: Yes Anesthesia Postop Eval I Summary Anesthesia Postop Eval I Summary: Anesthesia Postop Eval I: Assessment Summary Airway patent Yes 02/01/24 16:11 SEARCH AND RESCUE [email or web address].[email or web address] Spontaneous unlabored Yes 02/01/24 16:11 SEARCH AND RESCUE OFFICER.[email or web address] respirations Mental status Awake,Calm 02/01/24 16:11 SEARCH AND RESCUE OFFICER.[email or web address] nausea No 02/01/24 16:11 SEARCH AND RESCUE OFFICER.[email or web address] Vomiting No 02/01/24 16:11 SEARCH AND RESCUE OFFICER.[email or web address] Anesthesia Postop Eval I: Fluid Summary Crystalloid volume administer 1,100 02/01/24 16:11 SEARCH AND RESCUE OFFICER.AMYOBY (ml) Colloids volume administered ( ml) Blood Product volume administered (ml) Total IV fluid infused 1,100 02/01/24 16:11 SEARCH AND RESCUE OFFICER.NORBERTO Anesthesia Postop Eval I: Summary Notes Anesthesia Complication No 02/01/24 16:11 SEARCH AND RESCUE OFFICER.NORBERTO Anesthesia Complication Comment: Post-operative progress note Anesthesia: Postop Eval II Evaluation Mental status: Awake and Calm Pain Level: 0 nausea: No Vomiting: No Complications Anesthesia Complication: No
--- NOTE | 2024-02-01 17:08 | PCM.POSTANE2 ---
Anesthesia Postop Eval I Sum Postop Eval Completion status Anesthesia document: Postop Eval 1 completed: Yes Anesthesia Postop Eval I Summary Anesthesia Postop Eval I Summary: Anesthesia Postop Eval I: Assessment Summary Airway patent Yes 02/01/24 16:11 MECHANICS HANDYMAN.[email or web address] Spontaneous unlabored Yes 02/01/24 16:11 MECHANICS HANDYMAN.NORBERTO respirations Mental status Awake,Calm 02/01/24 16:11 MECHANICS HANDYMAN.AMYOBEdita nausea No 02/01/24 16:11 MECHANICS HANDYMAN.AMYOBEdita Vomiting No 02/01/24 16:11 MECHANICS HANDYMAN.AMYOBEdita Anesthesia Postop Eval I: Fluid Summary Crystalloid volume administer 1,100 02/01/24 16:11 MECHANICS HANDYMAN.AMYOBY (ml) Colloids volume administered ( ml) Blood Product volume administered (ml) Total IV fluid infused 1,100 02/01/24 16:11 MECHANICS HANDYMAN.[email or web address] Anesthesia Postop Eval I: Summary Notes Anesthesia Complication No 02/01/24 16:11 MECHANICS HANDYMAN.NORBERTO Anesthesia Complication Comment: Post-operative progress note Anesthesia: Postop Eval II Evaluation Mental status: Awake and Calm Pain Level: 0 nausea: No Vomiting: No Complications Anesthesia Complication: No
[2024-02-01] MEDS: Lactobacillis Acidophilus 1 CAP PO (21:26)
[2024-02-01] MEDS: Acetaminophen 500 MG Tablet 1000 MG PO (21:26)
[2024-02-01] MEDS: oxyCODONE 5 MG Tablet 10 MG PO (21:26)
[2024-02-01] MEDS: Senna/Docusate Sodium 1 Tablet PO (21:26)
[2024-02-02] MEDS: HYDROmorphone 1 MG/ML Syringe IV ×6 (00:01→20:35)
[2024-02-02] MEDS: MELATONIN 3 MG TABLET PO (00:08)
[2024-02-02 01:06] VITALS: BP 111/66; PULSE 95; RESP 16; TEMP 36.6; O2SAT 95
[2024-02-02] MEDS: oxyCODONE 5 MG Tablet 10 MG PO ×4 (01:38→18:05)
[2024-02-02 05:06] VITALS: BP 125/83; PULSE 100; RESP 16; TEMP 36.6; O2SAT 97
[2024-02-02 05:54] VITALS: BMI 27.3
[2024-02-02] MEDS: 0.9% Saline Lock 10 ML Syringe IV ×5 (06:07→20:35)
[2024-02-02] MEDS: Acetaminophen 500 MG Tablet 1000 MG PO ×3 (06:07→20:40)
[2024-02-02 06:20] LABS: Absolute Lymphocyte Count 1.25 X10^3/uL (0.83-4.51); Basophil# 0.01 X10^3/uL; Basophil% 0.1 % (0-1); Hematocrit 32.8 % (37-47); Hemoglobin 10.4 g/dL (12.0-15.0); Lymphocyte # 1.25 X10^3/ul (0.83-4.51); Lymphocyte % 11.7 % (19-41); Mean Corp Hgb Conc 31.7 g/dL (32-36); Mean Corpuscular Hgb 30.2 pg (27.0-32.0); Mean Corpuscular Volume 95.3 fL (81-99); Mean Platelet Vol. 12.6 fl (6.2-12.0); Monocyte# 0.43 X10^3/uL; NRBC Flagged by Analyzer 0 % (0-5); Neutrophil # 8.96 X10^3/uL (2.7-7.7); Neutrophil % 83.6 % (47-70); Platelet Count 294 K/mm3 (150-450); RBC Distribution Width CV 13.2 % (11.6-14.6); RBC Distribution Width SD 46.1 fl (35.1-43.9); Red Blood Count 3.44 M/mm3 (4.2-5.4); White Blood Count 10.7 K/mm3 (4.4-11.0)
[2024-02-02 06:46] LABS: ALB/GLOB Ratio 0.6 RATIO (0.9-2.4); AST(SGOT) 22 U/L (15-37); Alanine Aminotransfer ALT/SGPT 18 U/L (13-56); Albumin, Serum 2.4 g/dL (3.2-5.0); Alkaline Phosphatase 174 U/L (45-117); Anion Gap 7 (5-15); BUN 1 mg/dL (7-18); BUN/Creat Ratio 1.9 RATIO (10-20); Chloride 106 mmol/L (98-107); Creatinine, Serum 0.52 mg/dL (0.55-1.02); EST Glomerular Filtration Rate 144 mL/min (>60); Est Glom Filt Rate - Afr Amer 175 mL/min (>60); Estimated Creatinine Clearance 139.91 ml/min; Globulin 4.1 g/dL (2.2-4.2); Glucose 117 mg/dL (74-106); Magnesium 1.6 mg/dL (1.6-2.6); Potassium 3.6 mmol/L (3.5-5.1); Protein, Total 6.5 g/dL (6.4-8.2); Sodium Level 138 mmol/L (136-145)
[2024-02-02 08:00] VITALS: BP 130/77; PULSE 98; RESP 18; TEMP 36.9; O2SAT 98
[2024-02-02] MEDS: proMETHazine 25 MG/ML Syringe IM (08:45)
[2024-02-02 09:00] VITALS: RESP 18
[2024-02-02] MEDS: Magnesium Sulfate 4gm/100mL 4 GM/100 ML IV.SOLN. IV (09:04)
[2024-02-02] MEDS: Thiamine Hydrochloride 100 MG Tablet PO (09:09)
[2024-02-02] MEDS: Pantoprazole Sodium 40 MG Tablet PO (09:09)
[2024-02-02] MEDS: Folic Acid 1 MG Tablet PO (09:09)
[2024-02-02] MEDS: Senna/Docusate Sodium 1 Tablet PO ×2 (09:10→20:40)
[2024-02-02] MEDS: Enoxaparin 40 MG/0.4 ML Syringe SC (09:10)
[2024-02-02] MEDS: Magnesium Chloride 64 MG Delay Rel.Tablet 128 MG PO (09:10)
[2024-02-02] MEDS: Lactobacillis Acidophilus 1 CAP PO ×2 (09:10→20:40)
[2024-02-02] MEDS: Polyethylene Glycol 3350 17 GM PACKET PO (09:11)
--- NOTE | 2024-02-02 14:48 | CASEMGMT ---
Insurance review for hospitals In-network with?[facility] Community Plan insurance if transfer is recommended is as follows: [facility], Estela, JAZZY, Raheem, [facility], [facility], [facility], [place], [facility]), and . Harriet Clayton, Discharge Planning Asst.
--- NOTE | 2024-02-02 15:49 | PCM.PN.HOSP ---
Reason for Visit Reason for Visit: Diagnoses Anemia, unspecified (01/29/24) Acute pancreatitis without necrosis or infection, unspecified (01/29/24) Unspecified abdominal pain (01/29/24) Subjective Subjective Still having some abdominal pain but is better than previous, beginning to tolerate liquids Objective Data Objective Data Vital Signs: Vital Signs Temp Pulse Resp BP Pulse Ox O2 Del Method 97.9 F 100 18 125/83 H 97 Room Air 02/02/24 05:06 02/02/24 05:06 02/02/24 09:00 02/02/24 05:06 02/02/24 05:06 02/02/24 09:00 Oxygen Delivery Method Room Air Weight: 67.5 kg Body Mass Index (BMI) 27.3 Intake & Output: Intake and Output for Last 24 Hours 01/31/24 02/01/24 02/02/24 23:59 23:59 23:59 Intake Total 1520 / 1520 1294.5 / 1294.5 1100 / 1100 Balance 1520 / 1520 1294.5 / 1294.5 1100 / 1100 Lab / Micro Data 02/02/24 06:00 02/02/24 06:00 Labs: Laboratory Results - last 24 hr 02/02/24 06:00: WBC 10.7, RBC 3.44 L, Hgb 10.4 L, Hct 32.8 L, MCV 95.3, MCH 30.2, MCHC 31.7 L, RDW Std Deviation 46.1 H, RDW Coeff of Mercedes 13.2, Plt Count 294, MPV 12.6 H, Immature Gran % (Auto) 0.600, Neut % (Auto) 83.6 H, Lymph % (Auto) 11.7 L, [place] % (Auto) 4.0, Eos % (Auto) 0.0, Baso % (Auto) 0.1, Absolute Neuts (auto) 9.0 H, Absolute Lymphs (auto) 1.25, Nucleated RBC % 0, Sodium 138, Potassium 3.6, Chloride 106, Carbon Dioxide 25.0, Anion Gap 7, BUN 1 L, Creatinine 0.52 L, Estim Creat Clear Calc 139.91, Est GFR (MDRD) Af Amer 175, Est GFR (MDRD) Non-Af 144, BUN/Creatinine Ratio 1.9 L, Glucose 117 H, Calcium 9.0, Magnesium 1.6, Total Bilirubin 0.90, AST 22, ALT 18, Alkaline Phosphatase 174 H, Total Protein 6.5, Albumin 2.4 L, Globulin 4.1, Albumin/Globulin Ratio 0.6 L Radiography Diagnostic Testing: Radiology Impression Endo Retro Cholangiopancreatogram 02/01/24 14:40 IMPRESSION: Suspect stricture of the distal common bile duct treated with a biliary stent. Electronically Signed: Abdoul Smith MD at 16:12 EDT , Physical Exam Narrative General: Alert, oriented, no apparent distress HEENT: Atraumatic, normocephalic Eyes: extraocular movements grossly intact Neck: Supple Respiratory: normal respiratory effort Cardiovascular: no edema appreciated GI: Still some tenderness, primarily epigastric however no rebound, guarding, rigidity Extremities: Moving all extremities Neuro: No overt focal neurological deficits Psych: Cooperative Assessment & Plan Assessment/Plan (1) Pancreatitis: (2) Abdominal pain: (3) Anemia: PLAN: Plan Patient is a 33-year-old female who presented to [facility] ED on 01/29/2024 for recurrent abdominal pain. #Recurrent acute pancreatitis with abdominal pain/choledocholithiasis -Recent hospitalization 01/11 through 01/14 for same concern and evaluated by GI at that time -Unclear underlying etiology -CT abdomen pelvis on this admission showed diffuse enlargement of the pancreas with peripancreatic edema suggesting acute pancreatitis, fatty liver disease but otherwise unremarkable gallbladder and extrahepatic biliary system and no other concerning findings -Lipase 468 -Clear liquids, advance as able but patient not yet ready to advance diet -Will give some IV fluids given poor p.o. intake and pancreatitis -Pain control -01/31: Patient underwent ERCP today which found irregularity in ventral pancreatic duct in the head of the pancreas and choledocholithiasis with sphincterotomy and balloon extraction as well as biliary sweep, temporary stent was placed. Continue pain control, IV fluids -02/01: Patient's status post stent, still has pain but it is improving, beginning to tolerate liquids and nausea decreasing #Mild chronic iron deficiency anemia ? Hemoglobin 13 on admit but was hemoconcentrated, down to 10.7 on hospital day 2 - Baseline hemoglobin appears to be around 11. Iron studies on 01/29 with low iron and ferritin 124, consistent with iron deficiency anemia likely due to her ongoing menstrual periods -Will give IV iron 200 mg doses on 01/29 and 01/30 for supplementation. Monitor CBC daily. -01/31: Hemoglobin has been stable, repeat in the a.m. -02/01: Stable today #Marijuana use ? Reports consistent marijuana use at home. -Advise cessation #Leukocytosis- resolved -15 on admission however has improved, possibly secondary to hemoconcentration -Do not suspect additional infection and is normalized so no antibiotics at this time DVT prophylaxis: Lovenox Charges/Coding Visit Charges Inpatient E&M: 70131 Subs Hosp L1
[2024-02-02 16:00] VITALS: BP 125/87; PULSE 104; RESP 18; TEMP 36.3; O2SAT 98
--- NOTE | 2024-02-02 17:32 | PN.GI_ITS ---
Subjective Subjective She underwent ERCP yesterday for recurrent idiopathic nonresolving pancreatitis. She rates her abdominal pain currently at a 7-8 out of 10 where previously it was 12-15 out of 10. Objective Data Objective Data Vital Signs: Vital Signs Temp Pulse Resp BP Pulse Ox O2 Del Method 97.3 F L 104 H 18 125/87 H 98 Room Air 02/02/24 16:00 02/02/24 16:00 02/02/24 16:00 02/02/24 16:00 02/02/24 16:00 02/02/24 16:00 Oxygen Delivery Method Room Air Weight: 148 lb 12.992 oz Body Mass Index (BMI) 27.3 Intake & Output: Intake and Output for Last 24 Hours 01/31/24 02/01/24 02/02/24 23:59 23:59 23:59 Intake Total 1520 / 1520 1294.5 / 1294.5 1850 / 1850 Balance 1520 / 1520 1294.5 / 1294.5 1850 / 1850 Lab / Micro Data 02/02/24 06:00 02/02/24 06:00 Labs: Laboratory Results - last 24 hr 02/02/24 06:00: WBC 10.7, RBC 3.44 L, Hgb 10.4 L, Hct 32.8 L, MCV 95.3, MCH 30.2, MCHC 31.7 L, RDW Std Deviation 46.1 H, RDW Coeff of Mercedes 13.2, Plt Count 294, MPV 12.6 H, Immature Gran % (Auto) 0.600, Neut % (Auto) 83.6 H, Lymph % (Auto) 11.7 L, [place] % (Auto) 4.0, Eos % (Auto) 0.0, Baso % (Auto) 0.1, Absolute Neuts (auto) 9.0 H, Absolute Lymphs (auto) 1.25, Nucleated RBC % 0, Sodium 138, Potassium 3.6, Chloride 106, Carbon Dioxide 25.0, Anion Gap 7, BUN 1 L, C reatinine 0.52 L, Estim Creat Clear Calc 139.91, Est GFR (MDRD) Af Amer 175, Est GFR (MDRD) Non-Af 144, BUN/Creatinine Ratio 1.9 L, Glucose 117 H, Calcium 9.0, Magnesium 1.6, Total Bilirubin 0.90, AST 22, ALT 18, Alkaline Phosphatase 174 H, Total Protein 6.5, Albumin 2.4 L, Globulin 4.1, Albumin/Globulin Ratio 0.6 L Physical Exam Narrative General: Alert, oriented, no apparent distress HEENT: Atraumatic, normocephalic Eyes: extraocular movements grossly intact Neck: Supple Respiratory: normal respiratory effort Cardiovascular: no edema appreciated GI: Still some tenderness, primarily epigastric however no rebound, guarding, rigidity Extremities: Moving all extremities Neuro: No overt focal neurological deficits Psych: Cooperative Assessment & Plan Assessment/Plan (1) Acute pancreatitis: PLAN: Plan 33-year-old with possible acute idiopathic pancreatitis versus acute alcoholic pancreatitis. This is moderate pancreatitis. I would not say is severe pancreatitis at this time due to normal kidney function. -Acute pancreatitis-I am okay with a clear liquid diet. I am also okay with Dilaudid as needed for pain and given Zofran for nausea. Labs will be monitored, MRCP will be ordered. Common causes of acute pancreatitis include gallstones, alcohol abuse, smoking, hypertriglyceridemia, infections, trauma, drugs, malignancy, scorpion stings, hypercalcemia, and ERCP. Opioids, ADAL inhibitors, macrolides, NSAIDs, diuretics, statins, and cannabis have been associated with acute pancreatitis. Lower on the ?differential diagnosis does include pancreatic divisum, hereditary pancreatitis, autoimmune pancreatitis. - Thickening of the colonic wall-this was read out today on her CT as possibly being chronic versus acute colitis, worst area in the sigmoid colon. Patient may need to undergo colonoscopy during her hospital stay. The differential diagnosis does include inflammatory bowel disease, ischemic colitis, infectious colitis. I will draw labs for hypercoagulable workup and other labs in the work up of idiopathic pancreatitis.. - Patient underwent MRCP and it showed findings consistent with her previous CT scan and that she does have pancreatitis but there is no pancreatic divisum, sign of necrosis. Her hepatobiliary tree is normal size without ductal abnormality. She still continues to have a lot of pain. Workup was sent for alcohol induced pancreatitis such as GGT and HARPAL. Along with a 2-week alcohol A1c. I am not sure if this is an autoimmune phenomenon because her IgG4 is not back yet, VLADISLAV i are all normal. I also sent all triglycerides and they were normal. . 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 Continue supportive care. ERCP Impressions : - The patient has had a cholecystectomy. - An irregularity was found in the ventral pancreatic duct in the head of the pancreas. - Choledocholithiasis was found. Complete removal was accomplished by biliary sphincterotomy and balloon extraction. - A biliary sphincterotomy was performed. - The biliary tree was swept. - The right main hepatic duct was successfully dilated. - The lower third of the main bile duct was successfully dilated. - One temporary stent was placed into the common bile duct. 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 I will put her on scheduled Xanax to see if that calms down her gut and to see if that will decrease the amount of pain medicine she is requiring because she is having problems with constipation. Charges/Coding Visit Charges Inpatient E&M: 14114 Subs Hosp L3
[2024-02-02] MEDS: ALPRAZolam 0.5 MG Tablet PO ×2 (18:04→20:58)
[2024-02-02] MEDS: Metoclopramide 10 MG/2 ML Vial IV (18:05)
[2024-02-02 20:27] VITALS: BP 106/63; PULSE 81; RESP 16; TEMP 36.6; O2SAT 99
[2024-02-02] MEDS: Dicyclomine 10 MG Capsule 20 MG PO (20:58)
[2024-02-03] MEDS: Metoclopramide 10 MG/2 ML Vial IV ×3 (00:11→11:46)
[2024-02-03] MEDS: oxyCODONE 5 MG Tablet 10 MG PO ×2 (00:12→06:13)
[2024-02-03] MEDS: 0.9% Saline Lock 10 ML Syringe IV ×3 (00:12→11:46)
[2024-02-03] MEDS: MELATONIN 3 MG TABLET PO (00:12)
[2024-02-03 00:16] VITALS: BP 119/68; PULSE 88; RESP 16; TEMP 36.5; O2SAT 99
[2024-02-03 06:00] VITALS: BMI 26.9
[2024-02-03 06:08] VITALS: BP 120/86; PULSE 80; RESP 16; TEMP 36.8; O2SAT 98
[2024-02-03] MEDS: Dicyclomine 10 MG Capsule 20 MG PO (06:13)
[2024-02-03] MEDS: Acetaminophen 500 MG Tablet 1000 MG PO (06:14)
[2024-02-03 06:36] LABS: Absolute Lymphocyte Count 2.51 X10^3/uL (0.83-4.51); Absolute Neutrophil Count 2.7 X10^3/uL (2.0-7.7); Basophil# 0.01 X10^3/uL; Basophil% 0.2 % (0-1); Eosinophil# 0.12 X10^3/uL; Eosinophils% 2.1 % (0-5); Hematocrit 30.1 % (37-47); Hemoglobin 9.3 g/dL (12.0-15.0); Lymphocyte # 2.51 X10^3/ul (0.83-4.51); Lymphocyte % 43.5 % (19-41); Mean Corp Hgb Conc 30.9 g/dL (32-36); Mean Corpuscular Volume 97.1 fL (81-99); Mean Platelet Vol. 11.6 fl (6.2-12.0); Monocyte# 0.39 X10^3/uL; Monocyte% 6.8 % (0-10); NRBC Flagged by Analyzer 0 % (0-5); Neutrophil # 2.71 X10^3/uL (2.7-7.7); Neutrophil % 46.9 % (47-70); Platelet Count 284 K/mm3 (150-450); RBC Distribution Width CV 13.6 % (11.6-14.6); White Blood Count 5.8 K/mm3 (4.4-11.0)
[2024-02-03 06:59] LABS: ALB/GLOB Ratio 0.7 RATIO (0.9-2.4); AST(SGOT) 19 U/L (15-37); Alanine Aminotransfer ALT/SGPT 15 U/L (13-56); Albumin, Serum 2.3 g/dL (3.2-5.0); Alkaline Phosphatase 138 U/L (45-117); Anion Gap 6 (5-15); BUN 2 mg/dL (7-18); BUN/Creat Ratio 4.4 RATIO (10-20); Calcium,Total 8.3 mg/dL (8.5-10.1); Chloride 109 mmol/L (98-107); Creatinine, Serum 0.45 mg/dL (0.55-1.02); EST Glomerular Filtration Rate 170 mL/min (>60); Est Glom Filt Rate - Afr Amer 206 mL/min (>60); Estimated Creatinine Clearance 160.31 ml/min; Globulin 3.4 g/dL (2.2-4.2); Glucose 87 mg/dL (74-106); Potassium 3.5 mmol/L (3.5-5.1); Protein, Total 5.7 g/dL (6.4-8.2); Sodium Level 142 mmol/L (136-145)
[2024-02-03] MEDS: Pantoprazole Sodium 40 MG Tablet PO (08:29)
[2024-02-03] MEDS: Lactobacillis Acidophilus 1 CAP PO (08:29)
[2024-02-03] MEDS: Magnesium Chloride 64 MG Delay Rel.Tablet 128 MG PO (08:29)
[2024-02-03] MEDS: Folic Acid 1 MG Tablet PO (08:29)
[2024-02-03] MEDS: Thiamine Hydrochloride 100 MG Tablet PO (08:29)
[2024-02-03] MEDS: Polyethylene Glycol 3350 17 GM PACKET PO (08:30)
[2024-02-03] MEDS: Senna/Docusate Sodium 1 Tablet PO (08:30)
[2024-02-03] MEDS: Enoxaparin 40 MG/0.4 ML Syringe SC (08:30)
[2024-02-03 09:00] VITALS: BP 125/79; PULSE 77; RESP 18; TEMP 36.8; O2SAT 98
[2024-02-03 09:29] VITALS: RESP 18
--- NOTE | 2024-02-03 10:50 | DCINST_ITS ---
Discharge Instructions Diet Discharge Diet: Light diet - advance as tolerated Activity Discharge Activity: - (Increase activity as tolerated) Follow Up Care Test Results: Test results from this visit will be discussed in further detail at your follow- up appointment, if applicable. Discharge Plan Admission Admit Date/Time: 01/29/24 14:55 Primary Reason for Your Visit: Abdominal pain, pancreatitis Attending Provider: Jessi Ayers Primary Care Provider: Rossi Jones Consulting Providers: Kenrick Dow; Raj Miller; Ray Grimm Instructions Patient Instructions: Pancreatitis Acute Dc Additional Instructions / Restrictions: DISCHARGE INSTRUCTIONS PLEASE READ *Please take this with you to your next doctors appointment* -You will be discharged with Reglan 10 mg 3 times a day, a short course will be prescribed and you will follow-up with gastroenterology on discharge to determine need for further continuation -You will be discharged on a short course of pain medication, please follow up with GI and your primary care physician -Given your prescription for oxycodone on discharge you will also be prescribed Narcan -Your prescriptions have been sent to [facility] in [place], your preferred pharmacy on file -It is advised to take MiraLAX daily [id number] -Given your fairly stable potassium levels and advised that you take 20 mill equivalents twice daily instead of 40 mg as previously prescribed -Would recommend lab work (BMP) to check your potassium in 2 to 3 days through your primary care physician's office. Please call their office upon discharge to obtain order for lab work. -You will need to follow-up with Dr. Miller with GI in his office upon discharge. Please call his office to schedule your hospital follow-up appointment (ph. [phone]) -Please call your primary care provider's office upon discharge to schedule a hospital follow up within 1 week. -For any concerning signs or symptoms please call 911 or proceed to the nearest emergency department Discharge Orders/Prescriptions Prescriptions: New oxycodone 5 mg Tablet 10 mg PO Q4H PRN PRN (Reason: Pain Score 4-10) 3 Days Qty: 20 0RF metoclopramide HCl [Reglan] 10 mg tablet 10 mg PO Q8H 10 Days Qty: 30 0RF naloxone [Narcan] 4 mg/actuation spray,non-aerosol 1 spray intranasal Q3M PRN (Reason: opioid overdose) Qty: 2 0RF Rx Instructions: spray 1 dose into ONE nostril; alternate nostrils w each dose until help arrives Continued magnesium 200 mg tablet 200 mg PO DAILY Lactobacillus acidophilus 500 million cell capsule 500 mmu cells PO BID folic acid 1 mg tablet 1 mg PO DAILY thiamine HCl (vitamin B1) 100 mg tablet 100 mg PO DAILY melatonin 10 mg tablet 10 - 20 mg PO QHS albuterol sulfate 90 mcg/actuation HFA aerosol inhaler 1 - 2 puff inhalation Q6H PRN (Reason: ASTHMA ) omeprazole 40 mg capsule,delayed release(DR/EC) 40 mg PO DAILY 30 Days Qty: 30 0RF dicyclomine 20 mg tablet 20 mg PO BID PRN (Reason: abdominal pain) Qty: 60 0RF Changed potassium chloride 20 mEq Tablet,Er Particles/Crystals 20 meq PO BIDCM 5 Days Qty: 20 0RF Referrals / Follow Up: Rossi Jones DO [Primary Care Provider] - Within 1 Week Raj Miller DO [Med Staff - Active Staff] - Disposition Disposition (needs filled in before D/C Order can be placed): Home, Self Care
--- NOTE | 2024-02-03 11:19 | PCM.DC.SUM ---
Providers Date of Admission: 01/29/24 Date of Discharge: 02/03/24 Primary Care Physician: Dr. Rossi Jones, DO Consultations 01/30/24 11:08 Consult: Gastroenterology Routine Consulting Provider: Ra Angelahsaan Reason for Consult: recurrent pancreatitis EMERGENT Consult: No MD Notified: Yes Date Notified: 01/30/24 Time Notified: 11:13 Method of Notification: Text Reason For Visit: ACUTE PANCREATITIS Diagnosis Discharge Diagnosis (1) Acute pancreatitis: Status: Resolved Code(s): K85.90 - Acute pancreatitis without necrosis or infection, unspecified (2) Choledocholithiasis: Status: Acute Code(s): K80.50 - Calculus of bile duct without cholangitis or cholecystitis without obstruction Plan #Recurrent acute pancreatitis with abdominal pain/choledocholithiasis #Mild chronic iron deficiency anemia #Marijuana use #Leukocytosis- resolved Medications at Discharge Home Medications Lactobacillus acidophilus 500 million cell capsule 500 mmu cells PO BID GUT HEALTH 01/12/24 albuterol sulfate 90 mcg/actuation aerosol inhaler 1 - 2 puff inhalation Q6H PRN ASTHMA 01/12/24 folic acid 1 mg tablet 1 mg PO DAILY SUPPLEMENT 01/12/24 melatonin 10 mg tablet 10 - 20 mg PO QHS SLEEP 01/12/24 thiamine HCl (vitamin B1) 100 mg tablet 100 mg PO DAILY SUPPLEMENT 01/12/24 omeprazole 40 mg capsule,delayed release 40 mg PO DAILY GERD 30 days #30 caps 01/15/24 dicyclomine 20 mg tablet 20 mg PO BID PRN abdominal pain #60 tabs 01/18/24 magnesium 200 mg tablet 200 mg PO DAILY deficient in mag and potassium 01/30/24 metoclopramide HCl 10 mg tablet (Reglan) 10 mg PO Q8H nausea and vomiting 10 days #30 tabs 02/03/24 naloxone 4 mg/actuation nasal spray (Narcan) 1 spray intranasal Q3M PRN opioid overdose #2 ea 02/03/24 oxycodone 5 mg tablet 10 mg (2 x 5 mg) PO Q4H PRN PRN Pain Score 4-10 3 days #20 tabs 02/03/24 potassium chloride 20 mEq tablet,extended release(part/cryst) 20 meq PO BIDCM low potassium 5 days #20 tabs 02/03/24 Hospital Course Procedures - (ERCP w/ pancreatic stent placement) Summary of Care Provided Minutes Spent on Discharge: 23 Hospital Course: 33-year-old female with history of marijuana use who presented to [facility] ED 01/29/2024 with recurrent acute pancreatitis and abdominal pain. She had recently been hospitalized 01/11 through 01/14 and also had recently been hospitalized at another hospital for this same concern. On presentation CT showed enlargement of the pancreas with edema and elevated lipase, she continued to have significant pain despite conservative measures so she underwent ERCP and did have cholelithiasis with sphincterotomy and balloon extraction as well as biliary sweep and a temporary stent was placed. Patient significantly improved after this, patient will need outpatient EUS but this does not need done emergently. Given some of the continued pain patient was started on Reglan with some improvement, ultimately patient preferred to go home with outpatient follow-up and current management as she was much improved. Discharge instructions as follows: -You will be discharged with Reglan 10 mg 3 times a day, a short course will be prescribed and you will follow-up with gastroenterology on discharge to determine need for further continuation -You will be discharged on a short course of pain medication, please follow up with GI and your primary care physician -Given your prescription for oxycodone on discharge you will also be prescribed Narcan -Your prescriptions have been sent to [facility] in [place], your preferred pharmacy on file -It is advised to take MiraLAX daily [id number] -Given your fairly stable potassium levels and advised that you take 20 mill equivalents twice daily instead of 40 mg as previously prescribed -Would recommend lab work (BMP) to check your potassium in 2 to 3 days through your primary care physician's office. Please call their office upon discharge to obtain order for lab work. -You will need to follow-up with Dr. Miller with GI in his office upon discharge. Please call his office to schedule your hospital follow-up appointment (ph. [phone]) -Please call your primary care provider's office upon discharge to schedule a hospital follow up within 1 week. -For any concerning signs or symptoms please call 911 or proceed to the nearest emergency department Physical Exam Narrative General: Alert, oriented, no apparent distress HEENT: Atraumatic, normocephalic Eyes: extraocular movements grossly intact Neck: Supple Respiratory: normal respiratory effort Cardiovascular: no edema appreciated GI: Still some tenderness, much improved, no rebound, guarding, rigidity Extremities: Moving all extremities Neuro: No overt focal neurological deficits Psych: Cooperative Weight / BMI Weight Weight: 66.3 kg Body Mass Index (BMI) 26.9 ABG / Lab / Microbiology Data 02/03/24 06:20 02/03/24 06:20 Laboratory: Laboratory Results - last 24 hr 02/03/24 06:20: WBC 5.8, RBC 3.10 L, Hgb 9.3 L, Hct 30.1 L, MCV 97.1, MCH 30.0, MCHC 30.9 L, RDW Std Deviation 48.0 H, RDW Coeff of Mercedes 13.6, Plt Count 284, MPV 11.6, Immature Gran % (Auto) 0.500, Neut % (Auto) 46.9 L, Lymph % (Auto) 43.5 H, [place] % (Auto) 6.8, Eos % (Auto) 2.1, Baso % (Auto) 0.2, Absolute Neuts (auto) 2.7, Absolute Lymphs (auto) 2.51, Nucleated RBC % 0, Sodium 142, Potassium 3.5, Chloride 109 H, Carbon Dioxide 27.0, Anion Gap 6, BUN 2 L, Creatinine 0.45 L, Estim Creat Clear Calc 160.31, Est GFR (MDRD) Af Amer 206, Est GFR (MDRD) Non-Af 170, BUN/Creatinine Ratio 4.4 L, Glucose 87, Calcium 8.3 L, Total Bilirubin 0.40, AST 19, ALT 15, Alkaline Phosphatase 138 H, Total Protein 5.7 L, Albumin 2.3 L, Globulin 3.4, Albumin/Globulin Ratio 0.7 L D/C Instructions Discharge Diet: Light diet - advance as tolerated Meaningful Use Info Meaningful Use Meaningful Use Diagnoses (Choose all that apply): None applicable Ischemic Stroke Statin Dosing Therapy Reference: STATIN DOSE THERAPY REFERENCE: * Patients > 75 years receive moderate or high dose statin therapy. * Patients 75 years or YOUNGER should receive HIGH intensity statin dose unless contraindicated. You will be required to document reason for non-treatment if statin daily dose does not meet guidelines. HIGH DOSE STATIN THERAPY DAILY Atorvastatin > than or = to 40 mg Rosuvastatin > than or = to 20 mg Amlodipine + Atorvastatin > than or = to 2.5/40 mg Ezetimibe + Simvastatin 10/80 mg Simvastatin 80mg Discharge Plan Admission Admit Date/Time: 01/29/24 14:55 Primary Reason for Your Visit: Abdominal pain, pancreatitis Attending Provider: Jessi Ayers Primary Care Provider: Rossi Jones Consulting Providers: Kenrick Dow; Raj Miller; Ray Grimm Instructions Patient Instructions: Pancreatitis Acute Dc Additional Instructions / Restrictions: DISCHARGE INSTRUCTIONS PLEASE READ *Please take this with you to your next doctors appointment* -You will be discharged with Reglan 10 mg 3 times a day, a short course will be prescribed and you will follow-up with gastroenterology on discharge to determine need for further continuation -You will be discharged on a short course of pain medication, please follow up with GI and your primary care physician -Given your prescription for oxycodone on discharge you will also be prescribed Narcan -Your prescriptions have been sent to [facility] in [place], your preferred pharmacy on file -It is advised to take MiraLAX daily [id number] -Given your fairly stable potassium levels and advised that you take 20 mill equivalents twice daily instead of 40 mg as previously prescribed -Would recommend lab work (BMP) to check your potassium in 2 to 3 days through your primary care physician's office. Please call their office upon discharge to obtain order for lab work. -You will need to follow-up with Dr. Miller with GI in his office upon discharge. Please call his office to schedule your hospital follow-up appointment (ph. [phone]) -Please call your primary care provider's office upon discharge to schedule a hospital follow up within 1 week. -For any concerning signs or symptoms please call 911 or proceed to the nearest emergency department Discharge Orders/Prescriptions Prescriptions: New oxycodone 5 mg Tablet 10 mg PO Q4H PRN PRN (Reason: Pain Score 4-10) 3 Days Qty: 20 0RF metoclopramide HCl [Reglan] 10 mg tablet 10 mg PO Q8H 10 Days Qty: 30 0RF naloxone [Narcan] 4 mg/actuation spray,non-aerosol 1 spray intranasal Q3M PRN (Reason: opioid overdose) Qty: 2 0RF Rx Instructions: spray 1 dose into ONE nostril; alternate nostrils w each dose until help arrives Continued magnesium 200 mg tablet 200 mg PO DAILY Lactobacillus acidophilus 500 million cell capsule 500 mmu cells PO BID folic acid 1 mg tablet 1 mg PO DAILY thiamine HCl (vitamin B1) 100 mg tablet 100 mg PO DAILY melatonin 10 mg tablet 10 - 20 mg PO QHS albuterol sulfate 90 mcg/actuation HFA aerosol inhaler 1 - 2 puff inhalation Q6H PRN (Reason: ASTHMA ) omeprazole 40 mg capsule,delayed release(DR/EC) 40 mg PO DAILY 30 Days Qty: 30 0RF dicyclomine 20 mg tablet 20 mg PO BID PRN (Reason: abdominal pain) Qty: 60 0RF Changed potassium chloride 20 mEq Tablet,Er Particles/Crystals 20 meq PO BIDCM 5 Days Qty: 20 0RF Referrals / Follow Up: Rossi Jones DO [Primary Care Provider] - Within 1 Week FriendRaj DO [Med Staff - Active Staff] - Disposition Disposition (needs filled in before D/C Order can be placed): Home, Self Care Charges/Coding Visit Charges Inpatient E&M: 60192 Disch Hosp
--- NOTE | 2024-02-03 12:04 | CASEMGMT ---
CHIARA LEYVA NOTE: Discharge order is in. CHIARA LEYVA to room. Introduced self and role. Pt aware she is to have labs done in 2-3 days and instructed to contact PCP to have this ordered and aware to f/u w/PCP re: results. She states she still has appt w/Dr Friend scheduled for Mar and plans to go to this. CHIARA LEYVA informed her she may call them periodically to inquire if they have had any cancellations and to see if she can get an earlier appt, if desired. She is aware Rx's have been sent to [facility], and states her mom will be able to pick them up today. She denies having any discharge needs/concerns. Connor CLARKN CHIARA CM
[2024-02-03 12:24] VITALS: BP 123/86; PULSE 78; RESP 18; TEMP 36.8; O2SAT 98
== END 2024-02-03 12:35 | disposition home or self-care (01) | DRG 282 ==
LOC: ED 14:26 → MS3 15:32
PROVIDERS: Anesthesiology; Hospitalist; Internal Medicine Gastroenterology; Admitting Provider Internal Medicine; Emergency Provider Emergency Medicine; PCP Family Medicine; Visit Provider Internal Medicine
PROC: 0FC98ZZ Extirpation of Matter from Common Bile Duct, Via Natural or Artificial Opening Endoscopic (ICD-10-PCS; CPT 43260; principal; 2024-02-01 13:55)
DX: K85.90 Acute pancreatitis without necrosis or infection, unspecified (principal); K80.50 Calculus of bile duct without cholangitis or cholecystitis without obstruction; D50.9 Iron deficiency anemia, unspecified; J45.20 Mild intermittent asthma, uncomplicated; F17.210 Nicotine dependence, cigarettes, uncomplicated; F12.90 Cannabis use, unspecified, uncomplicated; K21.9 Gastro-esophageal reflux disease without esophagitis; Z79.891 Long term (current) use of opiate analgesic; Z90.49 Acquired absence of other specified parts of digestive tract
CPT/HCPCS: 36415; 74177; 74330; 76000; 80048; 80053; 80076; 81025; 82607; 82728; 82746; 83540; 83550; 83690; 83735; 83935; 84100; 84703; 85025; 85027; 85610; 85730; 97802; 99283; 99406; J7030; J7050; J7120; Q9967; A4216; J2405; J2916

== ENCOUNTER 2024-02-09 16:53 | Emergency (ER) | payer MEDICAID, SELFPAY ==
[2024-02-09 16:53] VITALS: BP 144/122; PULSE 117; RESP 18; TEMP 36.7; O2SAT 96; BMI 28.0
[2024-02-09 16:56] VITALS: BP 138/69; PULSE 104; RESP 19; TEMP 36.4; O2SAT 97
--- NOTE | 2024-02-09 17:21 | CT_ITS ---
INDICATION: abd pain, Hx of pancreatitis with CBD stent EXAMINATION: CT ABDOMEN AND PELVIS WITH CONTRAST - CT Abdomen And Pelvis W/ Contrast Injection TECHNIQUE: Helically acquired images were obtained of the abdomen and pelvis following IV contrast. A radiation dose optimization technique was used for this scan. IV Contrast dosage and agent: 100 cc [id number] Oral contrast: None. COMPARISON: 01/29/2024 FINDINGS: LOWER CHEST: Lung bases are clear. No cardiomegaly or pericardial effusion. LIVER: Homogeneous. No focal mass. GALLBLADDER AND BILIARY TREE: Cholecystectomy. Interval placement of biliary stent with mild pneumobilia. No intra- or extrahepatic biliary ductal dilation. PANCREAS: Diffuse pancreatic enlargement and edema with peripancreatic fat stranding. No walled off fluid collections. SPLEEN: Normal size without focal cystic or solid mass. ADRENAL GLANDS: No nodules. KIDNEYS AND URETERS: Normal renal size and position. No hydronephrosis. PERITONEUM: Trace ascites. No free air. BOWEL: Normal appendix. No stomach or bowel distension. No focal inflammatory change. LYMPH NODES: No enlarged mesenteric or retroperitoneal lymph nodes. VESSELS: Aorta is non-dilated. URINARY BLADDER: Unremarkable. REPRODUCTIVE ORGANS: No pelvic masses. BONES: Unremarkable. CT/Abdomen/Pelvis W IV Cont ONLY IMPRESSION: Findings consistent with acute edematous interstitial pancreatitis. No significant change in the appearance of the pancreas. No walled off fluid collections or other complications. Interval placement of biliary stent. Electronically Signed: Ike Aguilar MD at 18:55 EDT ,
--- NOTE | 2024-02-09 17:23 | EDS_ITS ---
HPI HPI - GI History of Present Illness Chief Complaint: Abd Pain Informant: patient and parent Abdominal Pain/Flank Pain Onset: Days Context: Gradual Onset Timing: Continuous Location: Diffuse, Epigastric and Left Flank Current Severity: Severe Maximum Severity: Severe Worsened by: Nothing Relieved by: Nothing Nausea/Vomiting/Emesis GI Symptom: Positive for Nausea and Vomiting Onset: Today Severity: Moderate Diarrhea/Melena/Hematochezia GI Symptom: Negative for Diarrhea, Melena or Hematochezia Associated Symptoms Associated Symptoms: Positive for Dysuria; Negative for Frequency, Hematuria or Urgency Narrative Narrative: 33-year-old female history of pancreatitis, irritable bowel prior cholecystectomy and prior . Recently she has had pancreatitis. She has had a common bile duct stent placed they are also discussing a pancreatic duct stent but the GI physician here, Dr. Miller, did not think he be able to place it. She had increasing pain over the last 24 hours with nausea and vomiting today. Prior similar symptoms: Yes Recent Illness[facility]ospital[facility]: [facility] Medical History Pancreatitis IBS (irritable bowel syndrome) Contusion of unspecified foot, initial encounter Unspecified sprain of unspecified foot, initial encounter Home Medications ?Medication ?Instructions ?Recorded ?Last Taken ?Type Lactobacillus acidophilus 500 500 mmu cells PO BID GUT HEALTH 01/12/24 01/12/24 History million cell capsule albuterol sulfate 90 mcg/actuation 1 - 2 puff inhalation Q6H PRN 01/12/24 Unknown History aerosol inhaler ASTHMA folic acid 1 mg tablet 1 mg PO DAILY SUPPLEMENT 01/12/24 01/12/24 History melatonin 10 mg tablet 10 - 20 mg PO QHS SLEEP 01/12/24 01/11/24 History thiamine HCl (vitamin B1) 100 mg 100 mg PO DAILY SUPPLEMENT 01/12/24 01/12/24 History tablet omeprazole 40 mg capsule,delayed 40 mg PO DAILY GERD 30 days #30 01/15/24 Unknown Rx release caps dicyclomine 20 mg tablet 20 mg PO BID PRN abdominal pain 01/18/24 Unknown Rx #60 tabs magnesium 200 mg tablet 200 mg PO DAILY deficient in mag 01/30/24 Unknown History and potassium metoclopramide HCl 10 mg tablet 10 mg PO Q8H nausea and vomiting 02/03/24 U nknown Rx (Reglan) 10 days #30 tabs naloxone 4 mg/actuation nasal 1 spray intranasal Q3M PRN opioid 02/03/24 Unknown Rx spray (Narcan) overdose #2 ea oxycodone 5 mg tablet 10 mg (2 x 5 mg) PO Q4H PRN PRN 02/03/24 Unknown Rx Pain Score 4-10 3 days #20 tabs potassium chloride 20 mEq 20 meq PO BIDCM low potassium 5 02/03/24 Unknown Rx tablet,extended release(part/cryst) days #20 tabs oxycodone 5 mg capsule 5 mg PO Q6H PRN pain 4 days #14 02/09/24 Unknown Rx caps Allergy/AdvReac Type Severity Reaction Status Date / Time codeine AdvReac Intermediate Vomiting Verified 02/09/24 16:53 Surgical History History of cholecystectomy Social History Smoking Status: Current every day smoker tobacco type: cigarettes ROS ROS ED ROS Narrative Nausea and vomiting. Abdominal pain. Constitutional Constitutional ED: Denies chills or fever(s) ENT ENT ED: Denies ear pain Cardiovascular Cardiovascular: Denies chest pain Respiratory/Chest Respiratory/Chest: Denies cough or dyspnea Gastrointestinal Gastrointestinal: Reports abdominal pain, nausea and vomiting; Denies constipation, diarrhea or melena Genitourinary Genitourinary ED: Reports dysuria Musculoskeletal Musculoskeletal: Reports back pain; Denies arthralgias Integumentary Denies abscess Neurologic Neurologic: Denies headache(s) Psychiatric Psychiatric: Denies anxiety Endocrine Endocrinology: Denies polydipsia Hematologic/Lymphatic Hematologic/Lymphatic: Denies easy bleeding Allergic/Immunologic Allergic/Immunologic ED: Denies mouth swelling or tongue swelling EXAM Physical Exam Narrative Exam Narrative: 33-year-old female vital signs stable afebrile. She does not look septic or toxic. She does look to be in pain. H EENT exam dry mucous membranes. Neck nontender. Lungs clear to auscultation. Heart tachycardic rate of 105 no murmur. Chest wall and ribs nontender. Abdomen soft diffusely tender in the upper quadrants primarily epigastric. No hernia or mass. No distention. Lower quadrant nontender. Moving all 4 extremities. Nontender no edema. Normal motor strength. Back nontender. She is awake and alert. Const Vital Signs: 02/09/24 16:53 02/09/24 16:56 02/09/24 19:27 Temperature 98.1 F 97.6 F L Temperature Source Oral Oral Pulse Rate 117 H 104 H 96 Respiratory Rate 18 19 H 20 H Blood Pressure 144/122 H 138/69 H 120/95 H Blood Pressure Mean 129 92 103 Pulse Ox 96 97 98 Oxygen Delivery Method Room Air Room Air Positive well nourished and well developed; Negative for obese, cachectic, contractures or unkempt General Appearance ED: well developed; Negative for unkempt, cachectic, contractures, NAD or pallor Nutritional Appearance: Negative for cachectic or obese HEENT Reports dry mucous membranes; Denies moist mucous membranes normocephalic and atraumatic; Negative for trauma or tenderness Mouth ED: Yes dry mucous membranes Mouth: dry mucous membranes Eyes PERRL and EOMs intact bilaterally Neck no lymphadenopathy, supple and no JVD Resp normal respiratory effort and clear to auscultation bilaterally Cardio regular rhythm, S1 normal heart sound, S2 normal heart sound and no murmurs; Negative for regular rate Rate: tachycardic GI non-distended and no masses; Negative for non-tender Inspection: Negative for abdominal distention Auscultation: normoactive bowel sounds Palpation: soft and tender; Negative for guarding or rebound tenderness present Back/Spine no CVA tenderness Extremity full ROM General Extremety ED: Negative for edema or tenderness General Extremity: Negative for edema Neuro CN's II-XII intact bilaterally and moves all extremities Sensorium / Orientation: alert, oriented to person, oriented to place and oriented to time; Negative for orientation impaired, confused, lethargic or stuporous Motor Exam: strength 5/5 throughout Psych mental status grossly normal and thought process normal Appearance: Negative for unkempt Attitude: No agitated Mood & Affect: Negative for depressed, anxious or tearful Skin no wounds General Skin Exam: Negative for jaundice or pallor Lesions: no lesions Rashes: no rashes Trauma: Negative for abrasion Nails: Negative for discolored MDM MDM MDM Narrative Medical decision making narrative: 33-year-old female history of pancreatitis complaining of upper abdominal pain with nausea and vomiting. History of cholecystectomy and prior common bile duct stent. Treated with IV fluids for nausea vomiting and dehydration. IV morphine for pain and Zofran for nausea. CAT scan labs are pending. Multiple repeat exams patient is doing much better. She was initially given 8 of morphine and a second dose of 6 mg IV. She is feeling much better. She has elevated white count but she has had it multiple times before in the past. I think this is secondary to her pain. Her other labs are her baseline and actually improving. Her CAT scan showed chronic edematous pancreatitis but again was no worse. I spoke to the patient and her mom are comfortable being discharged home. I spoke to her GI doctor Dr. Miller. I will write her for a few more additional oxycodone she is almost out at home. She will follow-up with him in the office. History & Record Review Discussion w/independent historian: Patient and Family Additional record(s) reviewed:: Prior inpatient record, Prior outpatient record, Prior ED visit and Prior labs Lab Data Attestation: I reviewed the patient's lab results. Lab results narrative: CBC shows no elevated white count 17.8. H&H 13 and 41. Platelets 508. Electrolytes show sodium 135. Gap 6. Normal BUN of 11 creatinine 0.5. Glucose 104. Liver enzymes unremarkable other than alk phos of 147. Patient's amylase is only 141 but it is elevated. Lipase is elevated but is only 408. UA negative. Labs: Laboratory Results - last 24 hr 02/09/24 02/09/24 17:50 19:00 WBC 17.8 H RBC 4.43 Hgb 13.1 Hct 41.7 MCV 94.1 MCH 29.6 MCHC 31.4 L RDW Std Deviation 47.6 H RDW Coeff of Mercedes 13.6 Plt Count 508 H MPV 11.2 Immature Gran % (Auto) 0.600 Neut % (Auto) 75.5 H Lymph % (Auto) 14.7 L [place] % (Auto) 6.1 Eos % (Auto) 2.6 Baso % (Auto) 0.5 Absolute Neuts (auto) 13.4 H Absolute Lymphs (auto) 2.62 Nucleated RBC % 0 Sodium 135 L Potassium 3.9 Chloride 103 Carbon Dioxide 26.0 Anion Gap 6 BUN 11 Creatinine 0.57 Estim Creat Clear Calc 129.33 Est GFR (MDRD) Af Amer 158 Est GFR (MDRD) Non-Af 130 BUN/Creatinine Ratio 19.3 Glucose 104 Calcium 8.5 Total Bilirubin 0.70 AST 22 ALT 16 Alkaline Phosphatase 147 H Total Protein 6.9 Albumin 2.7 L Globulin 4.2 Albumin/Globulin Ratio 0.6 L Amylase 141 H Lipase 408 H Serum , Qual NEGATIVE Urine Color Yellow Urine Clarity Sl. Cloudy Urine pH 6.0 Ur Specific [place] 1.010 Urine Protein 15 H Urine Glucose (UA) Normal Urine Ketones Negative Urine Occult Blood Negative Urine Nitrite Negative Urine Bilirubin Negative Urine Urobilinogen Normal Ur Leukocyte Esterase 25 H Urine RBC 0 SEEN Urine WBC 5-10 SEEN Ur Squamous Epith Cells 5-10 SEEN Urine Bacteria 3+ Urine Mucus 0 SEEN Radiography Diagnostic Testing: Clinical Impression(s) from Imaging Studies Abdomen/Pelvis CT 02/09/24 17:21 IMPRESSION: Findings consistent with acute edematous interstitial pancreatitis. No significant change in the appearance of the pancreas. No walled off fluid collections or other complications. Interval placement of biliary stent. Electronically Signed: Ike Aguilar MD at 18:55 EDT Reading Location ID and State: [facility] / [place] Tel , Service support , Discharge Plan Triage Chief Complaint: Abd Pain ED Provider: Gerry Yost Dx/Rx/DC Orders Clinical Impression: Abdominal pain, History of pancreatitis, History of IBS Instructions: Abdominal Pain Prescriptions: New oxycodone 5 mg capsule 5 mg PO Q6H PRN (Reason: pain) 4 Days Qty: 14 0RF No Action magnesium 200 mg tablet 200 mg PO DAILY oxycodone 5 mg Tablet 10 mg PO Q4H PRN PRN (Reason: Pain Score 4-10) 3 Days Qty: 20 0RF metoclopramide HCl [Reglan] 10 mg tablet 10 mg PO Q8H 10 Days Qty: 30 0RF naloxone [Narcan] 4 mg/actuation spray,non-aerosol 1 spray intranasal Q3M PRN (Reason: opioid overdose) Qty: 2 0RF Rx Instructions: spray 1 dose into ONE nostril; alternate nostrils w each dose until help arrives potassium chloride 20 mEq Tablet,Er Particles/Crystals 20 meq PO BIDCM 5 Days Qty: 20 0RF Lactobacillus acidophilus 500 million cell capsule 500 mmu cells PO BID folic acid 1 mg tablet 1 mg PO DAILY thiamine HCl (vitamin B1) 100 mg tablet 100 mg PO DAILY melatonin 10 mg tablet 10 - 20 mg PO QHS albuterol sulfate 90 mcg/actuation HFA aerosol inhaler 1 - 2 puff inhalation Q6H PRN (Reason: ASTHMA ) omeprazole 40 mg capsule,delayed release(DR/EC) 40 mg PO DAILY 30 Days Qty: 30 0RF dicyclomine 20 mg tablet 20 mg PO BID PRN (Reason: abdominal pain) Qty: 60 0RF Primary Care Provider: Rossi Jones Referrals: Rossi Jones DO [Primary Care Provider] - As Needed Activity Restrictions/Additional Instructions: Oxycodone for pain. Follow-up with primary care physician as needed. Follow-up with Dr. Miller as needed. I did speak to Dr. Angela grey on the phone. Plenty of fluids and rest. Slowly increase your diet as tolerated. Print Language: Persian Disposition Disposition: Home, Self Care
[2024-02-09] MEDS: 0.9% Normal Saline (1000mL) 1,000 ML 999 ML IV (17:42)
[2024-02-09] MEDS: Ondansetron 4 MG/2 ML Vial IV ×2 (17:42→19:25)
[2024-02-09] MEDS: morphine 8 MG/ML Syringe IV (17:42)
[2024-02-09 18:08] LABS: Absolute Lymphocyte Count 2.62 X10^3/uL (0.83-4.51); Absolute Neutrophil Count 13.4 X10^3/uL (2.0-7.7); Basophil# 0.09 X10^3/uL; Basophil% 0.5 % (0-1); Eosinophil# 0.47 X10^3/uL; Eosinophils% 2.6 % (0-5); Hematocrit 41.7 % (37-47); Hemoglobin 13.1 g/dL (12.0-15.0); Lymphocyte # 2.62 X10^3/ul (0.83-4.51); Lymphocyte % 14.7 % (19-41); Mean Corp Hgb Conc 31.4 g/dL (32-36); Mean Corpuscular Hgb 29.6 pg (27.0-32.0); Mean Corpuscular Volume 94.1 fL (81-99); Mean Platelet Vol. 11.2 fl (6.2-12.0); Monocyte# 1.09 X10^3/uL; Monocyte% 6.1 % (0-10); NRBC Flagged by Analyzer 0 % (0-5); Neutrophil % 75.5 % (47-70); Platelet Count 508 K/mm3 (150-450); RBC Distribution Width CV 13.6 % (11.6-14.6); RBC Distribution Width SD 47.6 fl (35.1-43.9); Red Blood Count 4.43 M/mm3 (4.2-5.4); White Blood Count 17.8 K/mm3 (4.4-11.0)
[2024-02-09 18:14] LABS: ALB/GLOB Ratio 0.6 RATIO (0.9-2.4); AST(SGOT) 22 U/L (15-37); Alanine Aminotransfer ALT/SGPT 16 U/L (13-56); Albumin, Serum 2.7 g/dL (3.2-5.0); Alkaline Phosphatase 147 U/L (45-117); Amylase 141 U/L (25-115); Anion Gap 6 (5-15); BUN 11 mg/dL (7-18); BUN/Creat Ratio 19.3 RATIO (10-20); Calcium,Total 8.5 mg/dL (8.5-10.1); Chloride 103 mmol/L (98-107); Creatinine, Serum 0.57 mg/dL (0.55-1.02); EST Glomerular Filtration Rate 130 mL/min (>60); Est Glom Filt Rate - Afr Amer 158 mL/min (>60); Estimated Creatinine Clearance 129.33 ml/min; Globulin 4.2 g/dL (2.2-4.2); Glucose 104 mg/dL (74-106); Lipase 408 U/L (13-75); Potassium 3.9 mmol/L (3.5-5.1); Protein, Total 6.9 g/dL (6.4-8.2); Sodium Level 135 mmol/L (136-145)
[2024-02-09 18:20] LABS: Internal QC Validated? YES +Cl - CLEAR BKGD; Pregnancy, Serum, hCG Quali. NEGATIVE Negative
[2024-02-09 19:05] LABS: Mucous, Urine 0 SEEN /hpf (<or=2+); Red Blood Cells-Urine 0 SEEN /hpf (0-5)
[2024-02-09 19:06] LABS: Color, Urine Yellow (Yellow); Glucose, Dipstick Normal (Normal); Ketone-Dipstick Negative (Negative); Leukocyte Esterase-Dipstick 25 /ul (Negative); Nitrite-Dipstick Negative (Negative); Occult Blood-Urine Negative /ul (Negative); Protein-Dipstick 15 mg/dl (Negative); Urine Bilirubin Dipstick Negative (Negative); Urine Clarity Sl. Cloudy (Clear); Urine Urobilinogen Normal (Normal)
[2024-02-09 19:11] LABS: Bacteria 3+ /hpf (None Seen); Squamous Epithelial Cells - UA 5-10 SEEN /hpf (5-10); White Blood Cells 5-10 SEEN /hpf (0-5)
[2024-02-09 19:27] VITALS: BP 120/95; PULSE 96; RESP 20; O2SAT 98
[2024-02-09] MEDS: morphine 8 MG/ML Syringe 6 MG IV (20:24)
[2024-02-09 21:04] VITALS: BP 112/67; PULSE 67; RESP 16; TEMP 36.6; O2SAT 100
== END 2024-02-09 21:06 | disposition home or self-care (01) ==
PROVIDERS: Emergency Provider Emergency Medicine; PCP Family Medicine; Visit Provider Emergency Medicine
DX: R10.10 Upper abdominal pain, unspecified (principal); R11.2 Nausea with vomiting, unspecified; E86.0 Dehydration; F17.210 Nicotine dependence, cigarettes, uncomplicated; Z90.49 Acquired absence of other specified parts of digestive tract; Z87.19 Personal history of other diseases of the digestive system
CPT/HCPCS: 74177; 80053; 81001; 82150; 83690; 84703; 85025; 99282; A4216; J2405; J7030; Q9967

== ENCOUNTER 2024-02-10 20:00 | Inpatient (IN) | payer MEDICAID, SELFPAY ==
[2024-02-10 20:02] VITALS: BP 126/91; PULSE 113; RESP 18; TEMP 36.3; O2SAT 96
--- NOTE | 2024-02-10 20:47 | EX.ED.DYSGE1 ---
HPI History of Present Illness Chief Complaint: Abn Labs Informant: patient and family Narrative Narrative: 33-year-old female has been dealing with choledocholithiasis and pancreatitis. Her GI doctor sent her in because labs yesterday showed pancreatitis and he wants to admit her for more aggressive treatment. Every time the patient goes home and tries to eat or drink, she has increase in pain and vomiting. She is having trouble keeping fluids down. Mostly epigastric pain with some right upper quadrant pain as well. Radiates into her mid back. She has been having this since November, she had a biliary stent placed about a week and a half ago. It temporarily gave her some decrease in pain but she cannot eat because the pain worsens. She was seen here yesterday for same, but the oxycodone is not taking care of her pain. [facility] Medical History Pancreatitis IBS (irritable bowel syndrome) Contusion of unspecified foot, initial encounter Unspecified sprain of unspecified foot, initial encounter Home Medications ?Medication ?Instructions ?Recorded ?Last Taken ?Type Lactobacillus acidophilus 500 500 mmu cells PO BID GUT HEALTH 01/12/24 01/12/24 History million cell capsule albuterol sulfate 90 mcg/actuation 1 - 2 puff inhalation Q6H PRN 01/12/24 Unknown History aerosol inhaler ASTHMA folic acid 1 mg tablet 1 mg PO DAILY SUPPLEMENT 01/12/24 01/12/24 History melatonin 10 mg tablet 10 - 20 mg PO QHS SLEEP 01/12/24 01/11/24 History thiamine HCl (vitamin B1) 100 mg 100 mg PO DAILY SUPPLEMENT 01/12/24 01/12/24 History tablet omeprazole 40 mg capsule,delayed 40 mg PO DAILY GERD 30 days #30 01/15/24 Unknown Rx release caps dicyclomine 20 mg tablet 20 mg PO BID PRN abdominal pain 01/18/24 Unknown Rx #60 tabs magnesium 200 mg tablet 200 mg PO DAILY deficient in mag 01/30/24 Unknown History and potassium metoclopramide HCl 10 mg tablet 10 mg PO Q8H nausea and vomiting 02/03/24 Unknown Rx (Reglan) 10 days #30 tabs naloxone 4 mg/actuation nasal 1 spray intranasal Q3M PRN opioid 02/03/24 Unknown Rx spray (Narcan) overdose #2 ea oxycodone 5 mg tablet 10 mg (2 x 5 mg) PO Q4H PRN PRN 02/03/24 Unknown Rx Pain Score 4-10 3 days #20 tabs potassium chloride 20 mEq 20 meq PO BIDCM low potassium 5 02/03/24 Unknown Rx tablet,extended release(part/cryst) days #20 tabs oxycodone 5 mg capsule 5 mg PO Q6H PRN pain 4 days #14 02/09/24 Unknown Rx caps Allergy/AdvReac Type Severity Reaction Status Date / Time codeine AdvReac Intermediate Vomiting Verified 02/10/24 20:01 Surgical History History of cholecystectomy Social History (Updated 02/10/24 @ 20:[address] Prince Ennis MD) Smoking Status: Current some day smoker tobacco type: cigarettes details: no alcohol ROS ROS ED Constitutional Constitutional ED: Denies chills or fever(s) Eyes Eyes: Denies change in vision or diplopia ENT ENT ED: Denies rhinorrhea or sore throat Cardiovascular Cardiovascular: Denies chest pain or palpitations Respiratory/Chest Respiratory/Chest: Denies cough or dyspnea Gastrointestinal Gastrointestinal: Reports abdominal pain, nausea and vomiting; Denies diarrhea or melena Genitourinary Genitourinary ED: Denies dysuria or hematuria Musculoskeletal Musculoskeletal: Reports back pain; Denies neck pain Integumentary Denies abscess or rash Neurologic Neurologic: Denies headache(s), paresthesias or weakness Psychiatric Psychiatric: Denies suicidal thoughts EXAM Physical Exam Const Vital Signs: 02/10/24 20:02 Temperature 97.4 F L Temperature Source Temporal Pulse Rate 113 H Respiratory Rate 18 Blood Pressure 126/91 H Blood Pressure Mean 102 Pulse Ox 96 Oxygen Delivery Method Room Air Positive well nourished and well developed Constitutional Narrative: Lying right lateral decubitus and position, no distress but appears uncomfortable General Appearance ED: well developed and NAD HEENT Reports moist mucous membranes normocephalic and atraumatic Eyes PERRL and EOMs intact bilaterally Neck full ROM and supple Resp normal respiratory effort and clear to auscultation bilaterally Cardio regular rate, regular rhythm and no murmurs GI non-distended GI Narrative: Mostly tender epigastrium medial right upper quadrant. No guarding or rebound. Auscultation: normoactive bowel sounds Palpation: soft Back/Spine no CVA tenderness General Back: other FROM Extremity normal to inspection General Extremety ED: Negative for edema, pulses abnormal or tenderness General Extremity: Negative for edema or pulses abnormal Neuro oriented x3, CN's II-XII intact bilaterally and no sensory deficits noted Sensorium / Orientation: awake and alert Motor Exam: strength 5/5 throughout Psych mental status grossly normal Skin no rashes or lesions noted and no wounds MDM MDM MDM Narrative Medical decision making narrative: Will repeat patient's labs, I noted them from yesterday, consistent with pancreatitis with an elevated lipase in the 400s, and a leukocytosis. Other liver enzymes are within normal limits. I am ordering her pain and nausea medication, discussed with GI Dr. Miller who does not require any new imaging at this time, she has had prior cholecystectomy year or 2 ago, he will consult, and requests LR at 300 cc/h which will be started as well. She does not have jaundice, fevers, confusion so I do not think this is likely acute cholangitis right now. Lab Data Attestation: I reviewed the patient's lab results. Labs: Laboratory Results - last 24 hr 02/10/24 21:15 WBC 12.8 H RBC 3.97 L Hgb 12.1 Hct 37.4 MCV 94.2 MCH 30.5 MCHC 32.4 RDW Std Deviation 45.8 H RDW Coeff of Mercedes 13.3 Plt Count 409 MPV 11.3 Immature Gran % (Auto) 0.500 Neut % (Auto) 70.1 H Lymph % (Auto) 18.4 L [place] % (Auto) 7.4 Eos % (Auto) 3.3 Baso % (Auto) 0.3 Absolute Neuts (auto) 9.0 H Absolute Lymphs (auto) 2.35 Nucleated RBC % 0 Sodium 136 Potassium 3.5 Chloride 103 Carbon Dioxide 25.0 Anion Gap 8 BUN 8 Creatinine 0.44 L Est GFR (MDRD) Af Amer 214 Est GFR (MDRD) Non-Af 177 BUN/Creatinine Ratio 18.3 Glucose 102 Calcium 8.8 Total Bilirubin 0.80 AST 17 ALT 15 Alkaline Phosphatase 147 H Total Protein 6.6 Albumin 2.5 L Globulin 4.1 Albumin/Globulin Ratio 0.6 L Lipase 124 H Management Discussion w/another healthcare provider: Hospitalist and [employer] (GI friend) Discharge Plan Dx/Rx/DC Orders Clinical Impression: Pancreatitis Disposition Disposition: Acute Care Hospital [facility]
[2024-02-10] MEDS: Ondansetron 4 MG/2 ML Vial IV (20:55)
[2024-02-10] MEDS: HYDROmorphone 1 MG/ML Syringe IV ×2 (20:55→23:55)
[2024-02-10] MEDS: Lactated Ringers 1,000 ML 300 ML IV (20:56)
--- NOTE | 2024-02-10 21:23 | PCM.HP.STD ---
HPI - General General Date of Admission: 02/10/24 Date of Service: 02/10/24 Chief Complaint: Recurrent pancreatitis HPI Narrative FEROZ CHEEK, is a 33 F who presented to [facility] ED on 02/10/2024 for recurrent abdominal pain presumed secondary to recurrent pancreatitis. Saw patient at bedside in the ED. Patient was fatigued appearing and significantly still due to ongoing abdominal pain. Patient has been hospitalized here multiple times recently and was seen in the ED for the same concern yesterday. Had CT abdomen pelvis done yesterday that showed acute edematous interstitial pancreatitis with interval placement of biliary stent, otherwise no walled off fluid collections or other complications. Lipase is elevated at 408. In the ED yesterday she was given IV fluids and several doses of IV morphine and Zofran with significant improvement in symptoms. Dr. Miller has seen her during these recent admissions and he recommended that she could be discharged home with low threshold to return to the ED if symptoms worsened. Unfortunately, patient did have worsening symptoms and she called Dr. Miller, who recommended that she come in for further management. On arrival today, vitals notable for sinus tachycardia to 110s, otherwise unremarkable. Labs appeared hemoconcentrated and were notable for WBC count 12.8, lipase 124, otherwise unremarkable. Patient was started on IV maintenance IV fluids and admitted for further management. [facility] Medical History Pancreatitis IBS (irritable bowel syndrome) Contusion of unspecified foot, initial encounter Unspecified sprain of unspecified foot, initial encounter Home Medications ?Medication ?Instructions ?Recorded ?Last Taken ?Type Lactobacillus acidophilus 500 500 mmu cells PO BID G[facility] HEALTH 01/12/24 01/12/24 History million cell capsule albuterol sulfate 90 mcg/actuation 1 - 2 puff inhalation Q6H PRN 01/12/24 Unknown History aerosol inhaler ASTHMA folic acid 1 mg tablet 1 mg PO DAILY SUPPLEMENT 01/12/24 01/12/24 History melatonin 10 mg tablet 10 - 20 mg PO QHS SLEEP 01/12/24 01/11/24 History thiamine HCl (vitamin B1) 100 mg 100 mg PO DAILY SUPPLEMENT 01/12/24 01/12/24 History tablet omeprazole 40 mg capsule,delayed 40 mg PO DAILY GERD 30 days #30 01/15/24 Unknown Rx release caps dicyclomine 20 mg tablet 20 mg PO BID PRN abdominal pain 01/18/24 Unknown Rx #60 tabs magnesium 200 mg tablet 200 mg PO DAILY deficient in mag 01/30/24 Unknown History and potassium metoclopramide HCl 10 mg tablet 10 mg PO Q8H nausea and vomiting 02/03/24 Unknown Rx (Reglan) 10 days #30 tabs naloxone 4 mg/actuation nasal 1 spray intranasal Q3M PRN opioid 02/03/24 Unknown Rx spray (Narcan) overdose #2 ea oxycodone 5 mg tablet 10 mg (2 x 5 mg) PO Q4H PRN PRN 02/03/24 Unknown Rx Pain Score 4-10 3 days #20 tabs potassium chloride 20 mEq 20 meq PO BIDCM low potassium 5 02/03/24 Unknown Rx tablet,extended release(part/cryst) days #20 tabs oxycodone 5 mg capsule 5 mg PO Q6H PRN pain 4 days #14 02/09/24 Unknown Rx caps Allergy/AdvReac Type Severity Reaction Status Date / Time codeine AdvReac Intermediate Vomiting Verified 02/10/24 20:01 Surgical History History of cholecystectomy Social History (Updated 02/10/24 @ 20:[address] Prince Ennis MD) Smoking Status: Current some day smoker tobacco type: cigarettes details: no alcohol ROS Constitutional Constitutional: Reports fatigue; Denies chills or fever(s) Cardiovascular Cardiovascular: Denies chest pain Respiratory/Chest Respiratory/Chest: Denies shortness of breath at rest Gastrointestinal Gastrointestinal: Reports abdominal pain and nausea; Denies constipation, diarrhea or vomiting Musculoskeletal Musculoskeletal: Denies arthralgias or myalgias Neurologic Neurologic: Denies dizziness, focal weakness or headache(s) Vital Signs Vital Signs Vital Signs: 02/10/24 20:02 Temperature 97.4 F L Temperature Source Temporal Pulse Rate 113 H Respiratory Rate 18 Blood Pressure 126/91 H Blood Pressure Mean 102 Pulse Ox 96 Oxygen Delivery Method Room Air Physical Exam Const alert, oriented x3, no apparent distress and average body habitus Constitutional Narrative: Younger female, fatigued appearing, sitting fairly still in bed due to abdominal pain, otherwise conversing normally and in no acute distress. General Appearance: cooperative and comfortable HEENT normocephalic, head/scalp atraumatic, hearing grossly normal bilaterally and nasal mucous membranes and turbinates normal HEENT Narrative: Dry mucous membranes. Eyes PERRL, EOMs intact bilaterally and conjunctivae normal Neck full ROM Chest inspection of chest normal Resp normal respiratory effort, normal air movement, no use of accessory muscles and clear to auscultation bilaterally Cardio no murmurs and peripheral pulses 2+ throughout Cardio Narrative: Tachycardic, regular rhythm. GI GI Narrative: Abdomen soft and nondistended, with mild to moderate tenderness palpation in epigastric area. Back/Spine normal ROM Extremity normal to inspection, full ROM and no pedal edema Skin no rashes or lesions noted Neuro moves all extremities and no focal motor deficits Speech: speech normal Psych mental status grossly normal Results Lab / Micro Data 02/10/24 21:15 02/10/24 21:15 Assessment & Plan Assessment/Plan (1) Pancreatitis: (2) Abdominal pain: PLAN: Plan Patient is a 33-year-old female who presented [facility] ED on 02/10/2024 with recurrent abdominal pain. 1. Recurrent pancreatitis ? Admit under inpatient status to [facility]. GI consulted. N.p.o. status. Continue IV maintenance fluids and as needed medications for pain and nausea control. Continue home scheduled Reglan, PPI, probiotics, folate and thiamine. Appreciate further GI recommendations. 2. Mild chronic iron deficiency anemia ? Hemoglobin 12.1 on admit, slightly above baseline likely due to hemoconcentration. Stable. 3. History of marijuana use ? Has history of intermittent use that per GI was concerning for possible etiology for recurrent pancreatitis. Encouraged cessation. DVT prophylaxis: Lovenox CODE STATUS: Full code, verified Expected disposition: Home, TBD Total clinical time spent by myself addressing the patient's medical issues, reviewing all the data, and collaborating with patient's care team: 55 minutes. Charges/Coding Visit Charges Inpatient E&M: 09194 Init Hosp L2
[2024-02-10 21:37] LABS: Absolute Lymphocyte Count 2.35 X10^3/uL (0.83-4.51); Basophil# 0.04 X10^3/uL; Basophil% 0.3 % (0-1); Eosinophil# 0.42 X10^3/uL; Eosinophils% 3.3 % (0-5); Hematocrit 37.4 % (37-47); Hemoglobin 12.1 g/dL (12.0-15.0); Lymphocyte # 2.35 X10^3/ul (0.83-4.51); Lymphocyte % 18.4 % (19-41); Mean Corp Hgb Conc 32.4 g/dL (32-36); Mean Corpuscular Hgb 30.5 pg (27.0-32.0); Mean Corpuscular Volume 94.2 fL (81-99); Mean Platelet Vol. 11.3 fl (6.2-12.0); Monocyte# 0.94 X10^3/uL; Monocyte% 7.4 % (0-10); NRBC Flagged by Analyzer 0 % (0-5); Neutrophil # 8.96 X10^3/uL (2.7-7.7); Neutrophil % 70.1 % (47-70); Platelet Count 409 K/mm3 (150-450); RBC Distribution Width CV 13.3 % (11.6-14.6); RBC Distribution Width SD 45.8 fl (35.1-43.9); Red Blood Count 3.97 M/mm3 (4.2-5.4); White Blood Count 12.8 K/mm3 (4.4-11.0)
[2024-02-10 21:59] LABS: ALB/GLOB Ratio 0.6 RATIO (0.9-2.4); AST(SGOT) 17 U/L (15-37); Alanine Aminotransfer ALT/SGPT 15 U/L (13-56); Albumin, Serum 2.5 g/dL (3.2-5.0); Alkaline Phosphatase 147 U/L (45-117); Anion Gap 8 (5-15); BUN 8 mg/dL (7-18); BUN/Creat Ratio 18.3 RATIO (10-20); Calcium,Total 8.8 mg/dL (8.5-10.1); Chloride 103 mmol/L (98-107); Creatinine, Serum 0.44 mg/dL (0.55-1.02); EST Glomerular Filtration Rate 177 mL/min (>60); Est Glom Filt Rate - Afr Amer 214 mL/min (>60); Globulin 4.1 g/dL (2.2-4.2); Glucose 102 mg/dL (74-106); Lipase 124 U/L (13-75); Potassium 3.5 mmol/L (3.5-5.1); Protein, Total 6.6 g/dL (6.4-8.2); Sodium Level 136 mmol/L (136-145)
[2024-02-10 22:01] VITALS: BP 101/66; PULSE 91; RESP 16; O2SAT 98
[2024-02-10 23:07] VITALS: BP 99/73; PULSE 98; RESP 18; TEMP 37.1; O2SAT 96
[2024-02-10 23:15] VITALS: BMI 26.6
[2024-02-10 23:22] VITALS: BMI 26.6
[2024-02-10 23:32] VITALS: BP 128/67; PULSE 93; RESP 18; TEMP 36.6; O2SAT 99
[2024-02-10] MEDS: Lactated Ringers 1,000 ML 150 ML IV (23:48)
[2024-02-10] MEDS: MELATONIN 10 MG TABLET PO (23:49)
[2024-02-10] MEDS: Metoclopramide 10 MG Tablet PO (23:49)
[2024-02-10] MEDS: 0.9% Saline Lock 10 ML Syringe IV (23:49)
[2024-02-11] VITALS (7 sets, daily range): BP systolic 113–134; BP diastolic 75–90; PULSE 74–95; RESP 16–18; TEMP 36.6–37; O2SAT 94–99
[2024-02-11] MEDS: oxyCODONE 5 MG Tablet 10 MG PO ×5 (02:38→22:32)
[2024-02-11] MEDS: HYDROmorphone 1 MG/ML Syringe IV ×5 (03:48→20:00)
[2024-02-11] MEDS: Acetaminophen 325 MG Tablet 650 MG PO ×3 (05:39→22:33)
[2024-02-11] MEDS: Dicyclomine 10 MG Capsule 20 MG PO (05:40)
[2024-02-11] MEDS: Lactated Ringers 1,000 ML 150 ML IV ×4 (05:41→22:25)
[2024-02-11] MEDS: Metoclopramide 10 MG Tablet PO ×3 (06:36→22:27)
[2024-02-11 07:13] LABS: Hematocrit 34.1 % (37-47); Hemoglobin 10.8 g/dL (12.0-15.0); Mean Corp Hgb Conc 31.7 g/dL (32-36); Mean Corpuscular Volume 94.7 fL (81-99); Mean Platelet Vol. 11.6 fl (6.2-12.0); Platelet Count 331 K/mm3 (150-450); RBC Distribution Width CV 13.2 % (11.6-14.6); RBC Distribution Width SD 46.1 fl (35.1-43.9); White Blood Count 8.9 K/mm3 (4.4-11.0)
[2024-02-11 07:41] LABS: ALB/GLOB Ratio 0.6 RATIO (0.9-2.4); AST(SGOT) 18 U/L (15-37); Alanine Aminotransfer ALT/SGPT 13 U/L (13-56); Albumin, Serum 2.2 g/dL (3.2-5.0); Alkaline Phosphatase 128 U/L (45-117); Anion Gap 4 (5-15); BUN 5 mg/dL (7-18); BUN/Creat Ratio 12.9 RATIO (10-20); Calcium,Total 8.4 mg/dL (8.5-10.1); Chloride 106 mmol/L (98-107); Creatinine, Serum 0.39 mg/dL (0.55-1.02); EST Glomerular Filtration Rate 203 mL/min (>60); Est Glom Filt Rate - Afr Amer 245 mL/min (>60); Estimated Creatinine Clearance 184.81 ml/min; Globulin 3.5 g/dL (2.2-4.2); Glucose 90 mg/dL (74-106); Potassium 3.5 mmol/L (3.5-5.1); Protein, Total 5.7 g/dL (6.4-8.2); Sodium Level 137 mmol/L (136-145)
[2024-02-11] MEDS: Enoxaparin 40 MG/0.4 ML Syringe SC (08:21)
[2024-02-11] MEDS: Potassium Chloride Oral Tablet 20 MEQ PO ×2 (08:22→17:16)
[2024-02-11] MEDS: Lactobacillis Acidophilus 1 CAP PO ×2 (08:23→22:27)
[2024-02-11] MEDS: Magnesium Chloride 64 MG Delay Rel.Tablet PO (08:23)
[2024-02-11] MEDS: Folic Acid 1 MG Tablet PO (08:23)
[2024-02-11] MEDS: Thiamine Hydrochloride 100 MG Tablet PO (08:23)
[2024-02-11] MEDS: Pantoprazole Sodium 40 MG Tablet PO (08:23)
[2024-02-11 08:49] LABS: Erythrocyte Sedimentation Rate 14 mm/hr (0-30)
[2024-02-11] MEDS: 0.9% Saline Lock 10 ML Syringe IV ×4 (10:47→19:59)
[2024-02-11] MEDS: Ondansetron 4 MG/2 ML Vial IV ×2 (10:54→20:00)
--- NOTE | 2024-02-11 12:44 | PN_ITS ---
Subjective Subjective Patient seen and examined. She still complains of abdominal pain. She denies any nausea or vomiting or fever or chills. Review of systems is otherwise negative. She has remained hemodynamically stable. On room air. Objective Data Objective Data Vital Signs: Vital Signs Temp Pulse Resp BP Pulse Ox O2 Del Method 98.6 F 84 16 125/83 H 99 Room Air 02/11/24 08:20 02/11/24 10:45 02/11/24 10:45 02/11/24 10:45 02/11/24 10:45 02/11/24 10:45 Oxygen Delivery Method Room Air Weight: 145 lb 14.4 oz Body Mass Index (BMI) 26.6 Intake & Output: Intake and Output for Last 24 Hours 02/09/24 02/10/24 02/11/24 23:59 23:59 23:59 Intake Total 770 / 770 1665.0 / 1665.0 Balance 770 / 770 1665.0 / 1665.0 Lab / Micro Data 02/11/24 06:52 02/11/24 06:52 Labs: Laboratory Results - last 24 hr 02/10/24 21:15: WBC 12.8 H, RBC 3.97 L, Hgb 12.1, Hct 37.4, MCV 94.2, MCH 30.5, MCHC 32.4, RDW Std Deviation 45.8 H, RDW Coeff of Mercedes 13.3, Plt Count 409, MPV 11.3, Immature Gran % (Auto) 0.500, Neut % (Auto) 70.1 H, Lymph % (Auto) 18.4 L, [place] % (Auto) 7.4, Eos % (Auto) 3.3, Baso % (Auto) 0.3, Absolute Neuts (auto) 9.0 H, Absolute Lymphs (auto) 2.35, Nucleated RBC % 0, Sodium 136, Potassium 3.5, Chloride 103, Carbon Dioxide 25.0, Anion Gap 8, BUN 8, Creatinine 0.44 L, Est GFR (MDRD) Af Amer 214, Est GFR (MDRD) Non-Af 177, BUN/Creatinine Ratio 18.3, Glucose 102, Calcium 8.8, Total Bilirubin 0.80, AST 17, ALT 15, Alkaline Phosphatase 147 H, Total Protein 6.6, Albumin 2.5 L, Globulin 4.1, A lbumin/Globulin Ratio 0.6 L, Lipase 124 H 02/10/ 06:52: WBC 8.9, RBC 3.60 L, Hgb 10.8 L, Hct 34.1 L, MCV 94.7, MCH 30.0, MCHC 31.7 L, RDW Std Deviation 46.1 H, RDW Coeff of Mercedes 13.2, Plt Count 331, MPV 11.6, ESR 14, Sodium 137, Potassium 3.5, Chloride 106, Carbon Dioxide 27.0, A nion Gap 4 L, BUN 5 L, Creatinine 0.39 L, Estim Creat Clear Calc 184.81, Est GFR (MDRD) Af Amer 245, Est GFR (MDRD) Non-Af 203, BUN/Creatinine Ratio 12.9, Glucose 90, Calcium 8.4 L, Total Bilirubin 0.80, AST 18, ALT 13, Alkaline Phosphatase 128 H, C-React Prot Ext Range 47.80 H, Total Protein 5.7 L, Albumin 2.2 L, Globulin 3.5, Albumin/Globulin Ratio 0.6 L Physical Exam Const alert, oriented x3 and no apparent distress General Appearance: cooperative HEENT normocephalic, head/scalp atraumatic, moist oral mucous membranes and oropharynx normal Eyes PERRL and EOMs intact bilaterally Neck no lymphadenopathy, supple and no JVD Lymph Lymphatic: no lymphadenopathy noted and no lymphedema noted Resp normal respiratory effort, normal air movement and clear to auscultation bilaterally Cardio regular rate, regular rhythm, S1 normal heart sound, S2 normal heart sound and no murmurs GI soft to palpation GI Narrative: moderate epigastric tenderness, no guarding or rebound tenderness. Extremity normal capillary refill, no clubbing, cyanosis or edema and no calf tenderness General Extremity: no tenderness to palpation of joints or extremities Skin General Skin Exam: no breakdown Neuro CN's II-XII intact bilaterally, no focal motor deficits, no sensory deficits noted and deep tendon reflexes 2+ bilaterally Motor Exam: strength 5/5 throughout and general weakness Psych thought process normal, cooperative and affect normal Appearance: appropriate Assessment & Plan Assessment/Plan (1) History of pancreatitis: (2) Abdominal pain: PLAN: Plan #Acute recurrent
--- NOTE | 2024-02-11 13:14 | CON.PCM.GI_ITS ---
HPI Consult Data Date of Consult: 02/11/24 HPI Narrative Reason for Consultation: Pancreatitis HPI Narrative: FEROZ CHEEK, is a 33 F who presents to the ED after recently being discharged with a diagnosis of pancreatitis. She has had acute recurrent or nonresolving pancreatitis for the last 2 months. Prior to her coming into [facility] she was diagnosed with acute pancreatitis less than 2 weeks prior to her admission of undetermined etiology who presented with abdominal pain. Patient symptoms started the night prior to coming in. Pain was located in the epigastric region radiating to the back. Associated symptoms included nausea and vomiting. Patient presented to the emergency department given the persistent of her symptoms. Was found to have slightly elevated lipase levels. Subsequently admitted for further management. Previously she was admitted in [facility] and was seen by GI doctor. She had right upper quadrant sonogram which was negative. CT shows pancreatitis but without necrosis abscess or pseudocyst. Patient was admitted on the [facility] floor. Continue IV fluid. Initially n.p.o. changed to clear liquid. Patient was still in significant pain. Etiology of acute pancreatitis unclear as patient is states she occasionally drinks alcohol. Had cholecystectomy in the past. Does not have family history of pancreatitis or congenital pancreatic duct disorder. Conservative management. MRCP done shows no choledocholithiasis. Edematous pancreas with peripancreatic fat and stranding with no abnormal pancreatic ductal dilatation consistent with findings of pancreatitis. She underwent ERCP after her LFTs went up. 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 She still has been having worsening abdominal pain. Her evaluation in the ED has shown her white blood cell count and increased, BUN to creatinine ratio. Also she got a repeat CT scan abdomen pelvis that shows nonresolving pancreatitis. [facility], [facility] Medical History Pancreatitis IBS (irritable bowel syndrome) Contusion of unspecified foot, initial encounter Unspecified sprain of unspecified foot, initial encounter Home Medications ?Medication ?Instructions ?Recorded ?Last Taken ?Type Lactobacillus acidophilus 500 500 mmu cells PO BID 51 Auto 01/12/24 01/12/24 History million cell capsule albuterol sulfate 90 mcg/actuation 1 - 2 puff inhalation Q6H PRN 01/12/24 Unknown History aerosol inhaler ASTHMA folic acid 1 mg tablet 1 mg PO DAILY SUPPLEMENT 01/12/24 01/12/24 History melatonin 10 mg tablet 10 - 20 mg PO QHS SLEEP 01/12/24 01/11/24 History thiamine HCl (vitamin B1) 100 mg 100 mg PO DAILY SUPPLEMENT 01/12/24 01/12/24 History tablet omeprazole 40 mg capsule,delayed 40 mg PO DAILY GERD 30 days #30 01/15/24 Unknown Rx release caps dicyclomine 20 mg tablet 20 mg PO BID PRN abdominal pain 01/18/24 Unknown Rx #60 tabs magnesium 200 mg tablet 200 mg PO DAILY deficient in mag 01/30/24 Unknown History and potassium metoclopramide HCl 10 mg tablet 10 mg PO Q8H nausea and vomiting 02/03/24 Unknown Rx (Reglan) 10 days #30 tabs naloxone 4 mg/actuation nasal 1 spray intranasal Q3M PRN opioid 02/03/24 Unknown Rx spray (Narcan) overdose #2 ea oxycodone 5 mg tablet 10 mg (2 x 5 mg) PO Q4H PRN PRN 02/03/24 Unknown Rx Pain Score 4-10 3 days #20 tabs potassium chloride 20 mEq 20 meq PO BIDCM low potassium 5 02/03/24 Unknown Rx tablet,extended release(part/cryst) days #20 tabs oxycodone 5 mg capsule 5 mg PO Q6H PRN pain 4 days #14 02/09/24 Unknown Rx caps Allergy/AdvReac Type Severity Reaction Status Date / Time codeine AdvReac Intermediate Vomiting Verified 02/10/24 20:01 Surgical History History of cholecystectomy Social History (Updated 02/10/24 @ 20:[address] Prince Ennis MD) Smoking Status: Current some day smoker tobacco type: cigarettes details: no alcohol ROS Constitutional Constitutional: Reports fatigue; Denies chills or fever(s) Cardiovascular Cardiovascular: Denies chest pain Respiratory/Chest Respiratory/Chest: Denies shortness of breath at rest Gastrointestinal Gastrointestinal: Reports abdominal pain and nausea; Denies constipation, diarrhea or vomiting Musculoskeletal Musculoskeletal: Denies arthralgias or myalgias Neurologic Neurologic: Denies dizziness, focal weakness or headache(s) Physical Exam Const alert, oriented x3 and no apparent distress General Appearance: cooperative HEENT normocephalic, head/scalp atraumatic, moist oral mucous membranes and oropharynx normal Eyes PERRL and EOMs intact bilaterally Neck no lymphadenopathy, supple and no JVD Lymph Lymphatic: no lymphadenopathy noted and no lymphedema noted Resp normal respiratory effort, normal air movement and clear to auscultation bilaterally Cardio regular rate, regular rhythm, S1 normal heart sound, S2 normal heart sound and no murmurs GI soft to palpation GI Narrative: moderate epigastric tenderness, no guarding or rebound tenderness. Extremity normal capillary refill, no clubbing, cyanosis or edema and no calf tenderness General Extremity: no tenderness to palpation of joints or extremities Skin General Skin Exam: no breakdown Neuro CN's II-XII intact bilaterally, no focal motor deficits, no sensory deficits noted and deep tendon reflexes 2+ bilaterally Motor Exam: strength 5/5 throughout and general weakness Psych thought process normal, cooperative and affect normal Appearance: appropriate Lab / Micro Data 02/11/24 06:52 02/11/24 06:52 Labs: Laboratory Results - last 24 hr 02/10/24 21:15: WBC 12.8 H, RBC 3.97 L, Hgb 12.1, Hct 37.4, MCV 94.2, MCH 30.5, MCHC 32.4, RDW Std Deviation 45.8 H, RDW Coeff of Mercedes 13.3, Plt Count 409, MPV 11.3, Immature Gran % (Auto) 0.500, Neut % (Auto) 70.1 H, Lymph % (Auto) 18.4 L, [place] % (Auto) 7.4, Eos % (Auto) 3.3, Baso % (Auto) 0.3, Absolute Neuts (auto) 9.0 H, Absolute Lymphs (auto) 2.35, Nucleated RBC % 0, Sodium 136, Potassium 3.5, Chloride 103, Carbon Dioxide 25.0, Anion Gap 8, BUN 8, Creatinine 0.44 L, Est GFR (MDRD) Af Amer 214, Est GFR (MDRD) Non-Af 177, BUN/Creatinine Ratio 18.3, Glucose 102, Calcium 8.8, Total Bilirubin 0.80, AST 17, ALT 15, Alkaline Phosphatase 147 H, Total Protein 6.6, Albumin 2.5 L, Globulin 4.1, A lbumin/Globulin Ratio 0.6 L, Lipase 124 H 02/11/24 06:52: WBC 8.9, RBC 3.60 L, Hgb 10.8 L, Hct 34.1 L, MCV 94.7, MCH 30.0, MCHC 31.7 L, RDW Std Deviation 46.1 H, RDW Coeff of Mercedes 13.2, Plt Count 331, MPV 11.6, ESR 14, Sodium 137, Potassium 3.5, Chloride 106, Carbon Dioxide 27.0, A nion Gap 4 L, BUN 5 L, Creatinine 0.39 L, Estim Creat Clear Calc 184.81, Est GFR (MDRD) Af Amer 245, Est GFR (MDRD) Non-Af 203, BUN/Creatinine Ratio 12.9, Glucose 90, Calcium 8.4 L, Total Bilirubin 0.80, AST 18, ALT 13, Alkaline Phosphatase 128 H, C-React Prot Ext Range 47.80 H, Total Protein 5.7 L, Albumin 2.2 L, Globulin 3.5, Albumin/Globulin Ratio 0.6 L Assessment & Plan Assessment/Plan (1) Acute pancreatitis: PLAN: Plan 33-year-old with possible acute idiopathic pancreatitis versus acute alcoholic pancreatitis. This is moderate pancreatitis. I would not say is severe pancreatitis at this time due to normal kidney function. -Acute pancreatitis-I am okay with a clear liquid diet. I am also okay with Dilaudid as needed for pain and given Zofran for nausea. Labs will be monitored. There have been some cases of steroid in the case of acute idiopathic recurrent pancreatitis. If patient does not get better within the next couple days then we may have to consider steroid therapy. - Thickening of the colonic wall-this was read out today on her CT as possibly being chronic versus acute colitis, worst area in the sigmoid colon. - Patient underwent MRCP and it showed findings consistent with her previous CT scan and that she does have pancreatitis but there is no pancreatic divisum, sign of necrosis. Her hepatobiliary tree is normal size without ductal abnormality. She still continues to have a lot of pain. Workup was sent for alcohol induced pancreatitis such as GGT and HARPAL. Along with a 2-week alcohol A1c. I am not sure if this is an autoimmune phenomenon because her IgG4 is not back yet, VLADISLAV i are all normal. I also sent all triglycerides and they were normal. . 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 Continue supportive care. ERCP Impressions : - The patient has had a cholecystectomy. - An irregularity was found in the ventral pancreatic duct in the head of the pancreas. - Choledocholithiasis was found. Complete removal was accomplished by biliary sphincterotomy and balloon extraction. - A biliary sphincterotomy was performed. - The biliary tree was swept. - The right main hepatic duct was successfully dilated. - The lower third of the main bile duct was successfully dilated. - One temporary stent was placed into the common bile duct. 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 I will put her on scheduled Xanax to see if that calms down her gut and to see if that will decrease the amount of pain medicine she is requiring because she is having problems with constipation. Charges/Coding Visit Charges Inpatient E&M: 38713 Init Hosp L3
--- NOTE | 2024-02-11 14:37 | CASEMGMT ---
CHIARA LEYVA Chart review: Patient was admitted 01/28-02/03/2024 for acute pancreatitis. See assessment from 01/13/24. Patient was discharged home with support from friends and family. CHIARA LEYVA into pt room to discuss needs at discharge and readmission. Pt reports she picked up medications prescribed and was taking them as ordered. Pt states she did follow up with PCP and got labs completed. Pt states labs all came back ok with magnesium being a little low. Pt returned to ER on 02/10/24 after having recurrent abdominal pains. Patient reports she called Dr. Miller, who recommended that she come in for further evaluation and treatment. Pt denies any further questions or concerns at this time. CHIARA LEYVA will follow for plan of care.
[2024-02-11] MEDS: MELATONIN 10 MG TABLET PO (22:27)
[2024-02-12] VITALS (7 sets, daily range): BP systolic 111–150; BP diastolic 71–100; PULSE 81–98; RESP 12–18; TEMP 36.1–36.8; O2SAT 96–99
[2024-02-12] MEDS: 0.9% Saline Lock 10 ML Syringe IV ×8 (00:19→21:35)
[2024-02-12] MEDS: HYDROmorphone 1 MG/ML Syringe IV ×6 (00:20→21:30)
[2024-02-12] MEDS: Lactated Ringers 1,000 ML 150 ML IV ×4 (04:45→23:25)
[2024-02-12] MEDS: oxyCODONE 5 MG Tablet 10 MG PO ×4 (04:46→23:18)
[2024-02-12] MEDS: Acetaminophen 325 MG Tablet 650 MG PO ×2 (04:46→13:14)
[2024-02-12 06:35] LABS: Absolute Lymphocyte Count 2.01 X10^3/uL (0.83-4.51); Absolute Neutrophil Count 3.1 X10^3/uL (2.0-7.7); Basophil# 0.04 X10^3/uL; Basophil% 0.7 % (0-1); Eosinophil# 0.26 X10^3/uL; Eosinophils% 4.4 % (0-5); Hematocrit 33.3 % (37-47); Hemoglobin 10.5 g/dL (12.0-15.0); Lymphocyte # 2.01 X10^3/ul (0.83-4.51); Lymphocyte % 33.9 % (19-41); Mean Corp Hgb Conc 31.5 g/dL (32-36); Mean Corpuscular Hgb 29.9 pg (27.0-32.0); Mean Corpuscular Volume 94.9 fL (81-99); Mean Platelet Vol. 11.8 fl (6.2-12.0); Monocyte# 0.53 X10^3/uL; Monocyte% 8.9 % (0-10); NRBC Flagged by Analyzer 0 % (0-5); Neutrophil # 3.07 X10^3/uL (2.7-7.7); Neutrophil % 51.8 % (47-70); Platelet Count 343 K/mm3 (150-450); RBC Distribution Width CV 13.3 % (11.6-14.6); RBC Distribution Width SD 46.5 fl (35.1-43.9); Red Blood Count 3.51 M/mm3 (4.2-5.4); White Blood Count 5.9 K/mm3 (4.4-11.0)
[2024-02-12 06:59] LABS: Anion Gap 4 (5-15); BUN 3 mg/dL (7-18); BUN/Creat Ratio 9.1 RATIO (10-20); Calcium,Total 8.7 mg/dL (8.5-10.1); Chloride 106 mmol/L (98-107); Creatinine, Serum 0.33 mg/dL (0.55-1.02); EST Glomerular Filtration Rate 244 mL/min (>60); Est Glom Filt Rate - Afr Amer 295 mL/min (>60); Estimated Creatinine Clearance 218.42 ml/min; Glucose 79 mg/dL (74-106); Potassium 3.8 mmol/L (3.5-5.1); Sodium Level 138 mmol/L (136-145)
[2024-02-12] MEDS: Metoclopramide 10 MG Tablet PO ×3 (07:26→21:32)
[2024-02-12] MEDS: Lactobacillis Acidophilus 1 CAP PO ×2 (09:19→21:30)
[2024-02-12] MEDS: Potassium Chloride Oral Tablet 20 MEQ PO ×2 (09:19→17:20)
[2024-02-12] MEDS: Pantoprazole Sodium 40 MG Tablet PO (09:19)
[2024-02-12] MEDS: Thiamine Hydrochloride 100 MG Tablet PO (09:19)
[2024-02-12] MEDS: Folic Acid 1 MG Tablet PO (09:20)
[2024-02-12] MEDS: Magnesium Chloride 64 MG Delay Rel.Tablet PO (09:20)
[2024-02-12] MEDS: Enoxaparin 40 MG/0.4 ML Syringe SC (09:20)
--- NOTE | 2024-02-12 10:01 | PN_ITS ---
Subjective Subjective Patient seen and examined. She still complains of some abdominal pain. Review of systems is otherwise negative. She has remained hemodynamically stable. GI on board. Objective Data Objective Data Vital Signs: Vital Signs Temp Pulse Resp BP Pulse Ox O2 Del Method 98.3 F 98 12 141/98 H 97 Room Air 02/12/24 08:14 02/12/24 08:14 02/12/24 08:14 02/12/24 08:14 02/12/24 08:19 02/12/24 08:19 Oxygen Delivery Method Room Air Weight: 145 lb 14.4 oz Body Mass Index (BMI) 26.6 Intake & Output: Intake and Output for Last 24 Hours 02/10/24 02/11/24 02/12/24 23:59 23:59 23:59 Intake Total 770 / 770 3592.5 / 3592.5 1150 / 1150 Balance 770 / 770 3592.5 / 3592.5 1150 / 1150 Lab / Micro Data 02/12/24 06:05 02/12/24 06:05 Labs: Laboratory Results - last 24 hr 02/12/24 06:05: WBC 5.9, RBC 3.51 L, Hgb 10.5 L, Hct 33.3 L, MCV 94.9, MCH 29.9, MCHC 31.5 L, RDW Std Deviation 46.5 H, RDW Coeff of Mercedes 13.3, Plt Count 343, MPV 11.8, Immature Gran % (Auto) 0.300, Neut % (Auto) 51.8, Lymph % (Auto) 33.9, [place] % (Auto) 8.9, Eos % (Auto) 4.4, Baso % (Auto) 0.7, Absolute Neuts (auto) 3.1, Absolute Lymphs (auto) 2.01, Nucleated RBC % 0, Sodium 138, Potassium 3.8, Chloride 106, Carbon Dioxide 28.0, Anion Gap 4 L, BUN 3 L, Creatinine 0.33 L, Estim Creat Clear Calc 218.42, Est GFR (MDRD) Af Amer 295, Est GFR (MDRD) Non-Af 244, BUN/Creatinine Ratio 9.1 L, Glucose 79, Calcium 8.7 Physical Exam Const alert, oriented x3 and no apparent distress General Appearance: cooperative and comfortable HEENT normocephalic, head/scalp atraumatic, hearing grossly normal bilaterally, nasal mucous membranes and turbinates normal, moist oral mucous membranes and oropharynx normal Eyes PERRL, EOMs intact bilaterally and conjunctivae normal Neck full ROM, no lymphadenopathy, supple and no JVD Lymph Lymphatic: no lymphadenopathy noted and no lymphedema noted Chest inspection of chest normal Resp normal respiratory effort, normal air movement, no use of accessory muscles and clear to auscultation bilaterally Cardio regular rate, regular rhythm, S1 normal heart sound, S2 normal heart sound, no murmurs and peripheral pulses 2+ throughout GI soft to palpation GI Narrative: mild epigastric tenderness, no guarding or rebound tenderness. Back/Spine normal ROM Extremity normal to inspection, full ROM, normal capillary refill, no clubbing, cyanosis or edema, no calf tenderness and no pedal edema General Extremity: no tenderness to palpation of joints or extremities Skin no rashes or lesions noted General Skin Exam: no breakdown Neuro CN's II-XII intact bilaterally, moves all extremities, no focal motor deficits, no sensory deficits noted and deep tendon reflexes 2+ bilaterally Speech: speech normal Motor Exam: strength 5/5 throughout and general weakness Psych mental status grossly normal, thought process normal, cooperative and affect normal Appearance: appropriate Assessment & Plan Assessment/Plan (1) History of pancreatitis: (2) Abdominal pain: PLAN: Plan #Acute recurrent pancreatitis * GI on board * has had a history of recurrent pancreatitis. had a biliary stent inserted by GI 2 weeks ago after having ERCP which showed diffuse enlargement of the pancreas with peripancreatic edema suggesting acute pancreatitis, otherwise unremarkable gallbladder and extrahepaticbiliary system. * keep NPO * continue hydrating with IVF * IV dilaudid prn for pain. 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 * on PPI. #History of marijuana use: patient counseled to quit. DVT prophylaxis: lovenox Charges/Coding Visit Charges Inpatient E&M: 91201 Subs Hosp L2
[2024-02-12] MEDS: Ondansetron 4 MG/2 ML Vial IV (13:20)
[2024-02-12] MEDS: Bisacodyl 5 MG Tablet PO (14:02)
[2024-02-12] MEDS: proCHLORPERazine 10 MG/2 ML Vial 5 MG IV (17:20)
[2024-02-12 18:23] LABS: Lipase 60 U/L (13-75)
[2024-02-12 18:24] LABS: Erythrocyte Sedimentation Rate 20 mm/hr (0-30)
[2024-02-12] MEDS: MELATONIN 10 MG TABLET PO (21:30)
[2024-02-12 23:32] LABS: Bedside Glucose 106 mg/dL (74-106)
[2024-02-13] MEDS: HYDROmorphone 1 MG/ML Syringe IV ×6 (01:03→21:12)
[2024-02-13 02:00] VITALS: BP 136/83; PULSE 82; RESP 16; TEMP 36.2; O2SAT 99
[2024-02-13 05:00] VITALS: BP 112/69; PULSE 82; RESP 16; TEMP 36.6; O2SAT 97
[2024-02-13] MEDS: Lactated Ringers 1,000 ML 150 ML IV ×4 (05:30→23:34)
[2024-02-13] MEDS: oxyCODONE 5 MG Tablet 10 MG PO ×5 (05:50→23:33)
[2024-02-13 06:29] LABS: Absolute Lymphocyte Count 1.84 X10^3/uL (0.83-4.51); Absolute Neutrophil Count 2.3 X10^3/uL (2.0-7.7); Basophil# 0.02 X10^3/uL; Basophil% 0.4 % (0-1); Eosinophil# 0.25 X10^3/uL; Eosinophils% 5.2 % (0-5); Hematocrit 32.7 % (37-47); Hemoglobin 10.2 g/dL (12.0-15.0); Lymphocyte # 1.84 X10^3/ul (0.83-4.51); Lymphocyte % 38.3 % (19-41); Mean Corp Hgb Conc 31.2 g/dL (32-36); Mean Corpuscular Hgb 29.7 pg (27.0-32.0); Mean Corpuscular Volume 95.3 fL (81-99); Mean Platelet Vol. 12.1 fl (6.2-12.0); Monocyte# 0.36 X10^3/uL; Monocyte% 7.5 % (0-10); NRBC Flagged by Analyzer 0 % (0-5); Neutrophil # 2.31 X10^3/uL (2.7-7.7); Neutrophil % 48.2 % (47-70); Platelet Count 330 K/mm3 (150-450); RBC Distribution Width CV 13.4 % (11.6-14.6); RBC Distribution Width SD 46.4 fl (35.1-43.9); Red Blood Count 3.43 M/mm3 (4.2-5.4); White Blood Count 4.8 K/mm3 (4.4-11.0)
[2024-02-13 06:49] LABS: Anion Gap 4 (5-15); BUN 1 mg/dL (7-18); BUN/Creat Ratio 3.1 RATIO (10-20); Calcium,Total 8.5 mg/dL (8.5-10.1); Chloride 107 mmol/L (98-107); Creatinine, Serum 0.33 mg/dL (0.55-1.02); EST Glomerular Filtration Rate 248 mL/min (>60); Est Glom Filt Rate - Afr Amer 300 mL/min (>60); Estimated Creatinine Clearance 218.42 ml/min; Glucose 85 mg/dL (74-106); Potassium 3.8 mmol/L (3.5-5.1); Sodium Level 140 mmol/L (136-145)
[2024-02-13] MEDS: Metoclopramide 10 MG Tablet PO ×3 (07:35→21:12)
[2024-02-13] MEDS: Potassium Chloride Oral Tablet 20 MEQ PO ×2 (07:35→16:49)
[2024-02-13] MEDS: Folic Acid 1 MG Tablet PO (07:35)
[2024-02-13] MEDS: 0.9% Saline Lock 10 ML Syringe IV ×3 (07:36→16:49)
[2024-02-13] MEDS: Magnesium Chloride 64 MG Delay Rel.Tablet PO (07:37)
[2024-02-13] MEDS: Pantoprazole Sodium 40 MG Tablet PO (07:38)
[2024-02-13] MEDS: Lactobacillis Acidophilus 1 CAP PO ×2 (07:38→21:12)
[2024-02-13] MEDS: Thiamine Hydrochloride 100 MG Tablet PO (07:39)
[2024-02-13] MEDS: Enoxaparin 40 MG/0.4 ML Syringe SC (07:40)
[2024-02-13] MEDS: Ondansetron 4 MG/2 ML Vial IV ×2 (07:46→16:51)
[2024-02-13 08:00] VITALS: BP 111/69; PULSE 89; RESP 12; TEMP 36.7; O2SAT 95
--- NOTE | 2024-02-13 12:15 | PN_ITS ---
Subjective Subjective Patient seen and examined. She says her abdominal pain has improved a bit today. She denied any fever, chills, chest pain, palpitations, dizziness, nausea, vomiting or any other symptoms. Review of systems is otherwise negative. She has remained hemodynamically stable. Objective Data Objective Data Vital Signs: Vital Signs Temp Pulse Resp BP Pulse Ox O2 Del Method 98.1 F 89 12 111/69 95 Room Air 02/13/24 08:00 02/13/24 08:00 02/13/24 08:00 02/13/24 08:00 02/13/24 08:00 02/13/24 08:00 Oxygen Delivery Method Room Air Weight: 145 lb 14.4 oz Body Mass Index (BMI) 26.6 Intake & Output: Intake and Output for Last 24 Hours 02/11/24 02/12/24 02/13/24 23:59 23:59 23:59 Intake Total 3592.5 / 3592.5 3950.0 / 5050.0 2372.5 / 2372.5 Balance 3592.5 / 3592.5 3950.0 / 5050.0 2372.5 / 2372.5 Lab / Micro Data 02/13/24 05:21 02/13/24 05:21 Labs: Laboratory Results - last 24 hr 02/12/24 17:55: ESR 20, C-React Prot Ext Range 22.80 H, Lipase 60 02/12/24 23:06: POC Glucose 106 02/13/24 05:21: WBC 4.8, RBC 3.43 L, Hgb 10.2 L, Hct 32.7 L, MCV 95.3, MCH 29.7, MCHC 31.2 L, RDW Std Deviation 46.4 H, RDW Coeff of Mercedes 13.4, Plt Count 330, MPV 12.1 H, Immature Gran % (Auto) 0.400, Neut % (Auto) 48.2, Lymph % (Auto) 38.3, [place] % (Auto) 7.5, Eos % (Auto) 5.2 H, Baso % (Auto) 0.4, Absolute Neuts (auto) 2.3, Absolute Lymphs (auto) 1.84, Nucleated RBC % 0, Sodium 140, Potassium 3.8, Chloride 107, Carbon Dioxide 29.0, Anion Gap 4 L, BUN 1 L, Creatinine 0.33 L, Estim Creat Clear Calc 218.42, Est GFR (MDRD) Af Amer 300, Est GFR (MDRD) Non-Af 248, BUN/Creatinine Ratio 3.1 L, Glucose 85, Calcium 8.5 Physical Exam Const alert, oriented x3, no apparent distress and average body habitus General Appearance: cooperative and comfortable HEENT normocephalic, head/scalp atraumatic, hearing grossly normal bilaterally, nasal mucous membranes and turbinates normal, moist oral mucous membranes and oropharynx normal Eyes PERRL, EOMs intact bilaterally and conjunctivae normal Neck full ROM, no lymphadenopathy, supple and no JVD Lymph Lymphatic: no lymphadenopathy noted and no lymphedema noted Chest inspection of chest normal Resp normal respiratory effort, normal air movement, no use of accessory muscles and clear to auscultation bilaterally Cardio regular rate, regular rhythm, S1 normal heart sound, S2 normal heart sound, no murmurs and peripheral pulses 2+ throughout GI soft to palpation GI Narrative: mild epigastric tenderness, no guarding or rebound tenderness. Back/Spine normal ROM Extremity normal to inspection, full ROM, normal capillary refill, no clubbing, cyanosis or edema, no calf tenderness and no pedal edema General Extremity: no tenderness to palpation of joints or extremities Skin no rashes or lesions noted General Skin Exam: no breakdown Neuro CN's II-XII intact bilaterally, moves all extremities, no focal motor deficits, no sensory deficits noted and deep tendon reflexes 2+ bilaterally Speech: speech normal Motor Exam: strength 5/5 throughout and general weakness Psych mental status grossly normal, thought process normal, cooperative and affect normal Appearance: appropriate Assessment & Plan Assessment/Plan (1) History of pancreatitis: (2) Abdominal pain: PLAN: Plan #Acute recurrent pancreatitis * GI on board. * has had a history of recurrent pancreatitis. had a biliary stent inserted by GI 2 weeks ago after having ERCP which showed diffuse enlargement of the pancreas with peripancreatic edema suggesting acute pancreatitis, otherwise unremarkable gallbladder and extrahepaticbiliary system. * IV dilaudid prn for pain. 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 * on PPI. * diet being advanced per GI to regular diet * #History of marijuana use: patient counseled to quit. DVT prophylaxis: lovenox Disposition: anticipate dc home over the next 1-2 days Charges/Coding Visit Charges Inpatient E&M: 25216 Subs Hosp L2
[2024-02-13 14:00] VITALS: BP 132/88; PULSE 86; RESP 13; TEMP 36.6; O2SAT 98
[2024-02-13] MEDS: Bisacodyl 5 MG Tablet PO (16:59)
[2024-02-13 20:36] LABS: Erythrocyte Sedimentation Rate 15 mm/hr (0-30)
[2024-02-13 21:09] VITALS: BP 101/65; PULSE 87; RESP 14; TEMP 36.7; O2SAT 99
[2024-02-13] MEDS: MELATONIN 10 MG TABLET PO (21:12)
[2024-02-13 23:26] VITALS: BP 118/72; PULSE 82; RESP 14; TEMP 36.8; O2SAT 99
[2024-02-13] MEDS: Dicyclomine 10 MG Capsule 20 MG PO (23:33)
[2024-02-14 02:43] VITALS: BP 114/58; PULSE 82; RESP 18; TEMP 37.1; O2SAT 96
[2024-02-14] MEDS: HYDROmorphone 1 MG/ML Syringe IV ×2 (02:45→08:36)
[2024-02-14] MEDS: Ondansetron 4 MG/2 ML Vial IV (02:45)
[2024-02-14] MEDS: Lactated Ringers 1,000 ML 150 ML IV (06:21)
[2024-02-14] MEDS: oxyCODONE 5 MG Tablet 10 MG PO ×2 (06:21→11:10)
[2024-02-14] MEDS: Metoclopramide 10 MG Tablet PO (06:21)
[2024-02-14 06:59] LABS: Absolute Lymphocyte Count 2.05 X10^3/uL (0.83-4.51); Absolute Neutrophil Count 2.7 X10^3/uL (2.0-7.7); Basophil# 0.04 X10^3/uL; Basophil% 0.7 % (0-1); Eosinophil# 0.31 X10^3/uL; Eosinophils% 5.7 % (0-5); Hematocrit 33.6 % (37-47); Hemoglobin 10.5 g/dL (12.0-15.0); Lymphocyte # 2.05 X10^3/ul (0.83-4.51); Lymphocyte % 37.6 % (19-41); Mean Corp Hgb Conc 31.3 g/dL (32-36); Mean Corpuscular Hgb 29.9 pg (27.0-32.0); Mean Corpuscular Volume 95.7 fL (81-99); Mean Platelet Vol. 12.2 fl (6.2-12.0); Monocyte# 0.38 X10^3/uL; NRBC Flagged by Analyzer 0 % (0-5); Neutrophil # 2.65 X10^3/uL (2.7-7.7); Neutrophil % 48.6 % (47-70); Platelet Count 283 K/mm3 (150-450); RBC Distribution Width CV 13.6 % (11.6-14.6); Red Blood Count 3.51 M/mm3 (4.2-5.4); White Blood Count 5.5 K/mm3 (4.4-11.0)
[2024-02-14 07:24] LABS: Anion Gap 4 (5-15); BUN < 1 mg/dL (7-18); Calcium,Total 8.4 mg/dL (8.5-10.1); Chloride 108 mmol/L (98-107); Creatinine, Serum 0.42 mg/dL (0.55-1.02); EST Glomerular Filtration Rate 186 mL/min (>60); Est Glom Filt Rate - Afr Amer 225 mL/min (>60); Estimated Creatinine Clearance 171.61 ml/min; Glucose 95 mg/dL (74-106); Potassium 3.8 mmol/L (3.5-5.1); Sodium Level 139 mmol/L (136-145)
[2024-02-14 07:30] VITALS: O2SAT 97
[2024-02-14 09:00] VITALS: BP 143/82; PULSE 89; RESP 18; TEMP 36.7; O2SAT 98
[2024-02-14] MEDS: Folic Acid 1 MG Tablet PO (09:52)
[2024-02-14] MEDS: Potassium Chloride Oral Tablet 20 MEQ PO (09:52)
[2024-02-14] MEDS: Magnesium Chloride 64 MG Delay Rel.Tablet PO (09:53)
[2024-02-14] MEDS: Lactobacillis Acidophilus 1 CAP PO (09:53)
[2024-02-14] MEDS: Pantoprazole Sodium 40 MG Tablet PO (09:53)
--- NOTE | 2024-02-14 10:29 | DS.PCM_ITS ---
Providers Date of Admission: 02/10/24 Date of Discharge: 02/14/24 Primary Care Physician: Dr. Rossi Jones, DO Consultations 02/10/24 23:16 Consult: Gastroenterology Routine Consulting Provider: [facility] Reason for Consult: recurrent pancreatitis EMERGENT Consult: No MD Notified: Yes Date Notified: 02/10/24 Time Notified: 21:27 Method of Notification: Text Reason For Visit: RECURRENT PANCREATITIS Diagnosis Discharge Diagnosis (1) History of pancreatitis: Status: Acute Code(s): Z87.19 - Personal history of other diseases of the digestive system (2) Abdominal pain: Status: Acute Code(s): R10.9 - Unspecified abdominal pain Plan #Acute recurrent pancreatitis * GI on board. * has had a history of recurrent pancreatitis. had a biliary stent inserted by GI 2 weeks ago after having ERCP which showed diffuse enlargement of the pancreas with peripancreatic edema suggesting acute pancreatitis, otherwise unremarkable gallbladder and extrahepaticbiliary system. * IV dilaudid prn for pain. 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 * on PPI. * diet being advanced per GI to regular diet * #History of marijuana use: patient counseled to quit. DVT prophylaxis: lovenox Disposition: anticipate dc home over the next 1-2 days Medications at Discharge Home Medications Lactobacillus acidophilus 500 million cell capsule 500 mmu cells PO BID GUT HEALTH 01/12/24 albuterol sulfate 90 mcg/actuation aerosol inhaler 1 - 2 puff inhalation Q6H PRN ASTHMA 01/12/24 folic acid 1 mg tablet 1 mg PO DAILY SUPPLEMENT 01/12/24 melatonin 10 mg tablet 10 - 20 mg PO QHS SLEEP 01/12/24 thiamine HCl (vitamin B1) 100 mg tablet 100 mg PO DAILY SUPPLEMENT 01/12/24 omeprazole 40 mg capsule,delayed release 40 mg PO DAILY GERD 30 days #30 caps 01/15/24 dicyclomine 20 mg tablet 20 mg PO BID PRN abdominal pain #60 tabs 01/18/24 magnesium 200 mg tablet 200 mg PO DAILY deficient in mag and potassium 01/30/24 metoclopramide HCl 10 mg tablet (Reglan) 10 mg PO Q8H nausea and vomiting 10 days #30 tabs 02/03/24 naloxone 4 mg/actuation nasal spray (Narcan) 1 spray intranasal Q3M PRN opioid overdose #2 ea 02/03/24 oxycodone 5 mg tablet 10 mg (2 x 5 mg) PO Q4H PRN PRN Pain Score 4-10 3 days #20 tabs 02/03/24 potassium chloride 20 mEq tablet,extended release(part/cryst) 20 meq PO BIDCM low potassium 5 days #20 tabs 02/03/24 oxycodone 5 mg tablet 5 mg PO Q6H PRN pain 3 days #12 tabs 02/14/24 Hospital Course Operations None Procedures None Summary of Care Provided Minutes Spent on Discharge: 45 Hospital Course: Patient is a 33-year-old female with a past medical history as outlined was admitted through the ED on 02/10/2024 for abdominal pain due to recurrent pancreatitis. Patient had had multiple admissions in the hospital for acute pancreatitis. She had had a 6 CT done in the ED the day before admission on account of abdominal pain and it showed acute edematous interstitial pancreatitis with interval placement of a biliary stent but otherwise no walled off fluid collections or other complications. Lipase was elevated at 408. His symptoms had persisted after she was sent home from the ED the day before and so she came into the ED. She had had ERCP done during a previous admission and not had biliary stents placed. She was admitted and managed for acute recurrent pancreatitis. She was kept n.p.o. and hydrated with IV fluids. She was placed on pain medication as well. 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 However patient improved and so she was follow-up with gastroenterology on outpatient basis for this to be done if still needed. Abdominal pain improved and she was able to tolerate a diet. She was advanced to a regular diet and did well. She remained stable and was discharged home on 02/14/2024. She is follow-up with her primary care doctor and gastroenterology within 1 to 2 weeks. Patient seen and examined prior to discharge. She had no active complaints and had an uneventful night. Review of systems otherwise negative. Labs and vitals reviewed. Home medication reviewed and reconciled. She was given a prescription for p.o. oxycodone 5 mg every 6 hours as needed for total of 12 tablets for 3 days with 0 refills. Physical Exam Const alert, oriented x3, no apparent distress and average body habitus General Appearance: cooperative, comfortable, well kempt and well developed Orientation / Consciousness: awake HEENT normocephalic, head/scalp atraumatic, hearing grossly normal bilaterally, nasal mucous membranes and turbinates normal, moist oral mucous membranes and oropharynx normal Mouth: oral and palatal mucosa normal Eyes PERRL, EOMs intact bilaterally and conjunctivae normal Neck full ROM, no lymphadenopathy, supple and no JVD Lymph Lymphatic: no lymphadenopathy noted and no lymphedema noted Chest inspection of chest normal Resp normal respiratory effort, normal air movement, no use of accessory muscles and clear to auscultation bilaterally Cardio regular rate, regular rhythm, S1 normal heart sound, S2 normal heart sound, no murmurs and peripheral pulses 2+ throughout Cardio Narrative: Tachycardic, regular rhythm. GI soft to palpation GI Narrative: minimal epigastric tenderness, no guarding or rebound tenderness. Back/Spine normal ROM Extremity normal to inspection, full ROM, normal capillary refill, no clubbing, cyanosis or edema, no calf tenderness and no pedal edema General Extremity: no tenderness to palpation of joints or extremities Skin no rashes or lesions noted General Skin Exam: no breakdown Neuro oriented x3, CN's II-XII intact bilaterally, moves all extremities, no focal motor deficits, no sensory deficits noted and deep tendon reflexes 2+ bilaterally Sensorium / Orientation: awake Speech: speech normal Motor Exam: strength 5/5 throughout and general weakness Psych mental status grossly normal, thought process normal, cooperative and affect normal Appearance: appropriate Weight / BMI Weight Weight: 145 lb 14.4 oz Body Mass Index (BMI) 26.6 ABG / Lab / Microbiology Data 02/14/24 06:29 02/14/24 06:29 Laboratory: Laboratory Results - last 24 hr 02/13/24 20:15: ESR 15, C-React Prot Ext Range 15.10 H 02/14/24 06:29: WBC 5.5, RBC 3.51 L, Hgb 10.5 L, Hct 33.6 L, MCV 95.7, MCH 29.9, MCHC 31.3 L, RDW Std Deviation 48.0 H, RDW Coeff of Mercedes 13.6, Plt Count 283, MPV 12.2 H, Immature Gran % (Auto) 0.400, Neut % (Auto) 48.6, Lymph % (Auto) 37.6, [place] % (Auto) 7.0, Eos % (Auto) 5.7 H, Baso % (Auto) 0.7, Absolute Neuts (auto) 2.7, Absolute Lymphs (auto) 2.05, Nucleated RBC % 0, Sodium 139, Potassium 3.8, Chloride 108 H, Carbon Dioxide 27.0, Anion Gap 4 L, BUN < 1 L, Creatinine 0.42 L , Estim Creat Clear Calc 171.61, Est GFR (MDRD) Af Amer 225, Est GFR (MDRD) Non- Af 186, BUN/Creatinine Ratio TNP, Glucose 95, Calcium 8.4 L D/C Instructions Discharge Diet: Low fat / Low cholesterol Discharge Activity: Return to Normal Activity Weight Bearing Status: Weight bearing as tolerated Call your doctor if you observe: Fever of 101 or Higher, Shortness of breath, Dizziness, Swelling in the ankles, Chest pain and Uncontrolled pain Meaningful Use Info Meaningful Use Meaningful Use Diagnoses (Choose all that apply): None applicable Ischemic Stroke Statin Dosing Therapy Reference: STATIN DOSE THERAPY REFERENCE: * Patients > 75 years receive moderate or high dose statin therapy. * Patients 75 years or YOUNGER should receive HIGH intensity statin dose unless contraindicated. You will be required to document reason for non-treatment if statin daily dose does not meet guidelines. HIGH DOSE STATIN THERAPY DAILY Atorvastatin > than or = to 40 mg Rosuvastatin > than or = to 20 mg Amlodipine + Atorvastatin > than or = to 2.5/40 mg Ezetimibe + Simvastatin 10/80 mg Simvastatin 80mg Discharge Plan Admission Admit Date/Time: 02/10/24 21:24 Primary Reason for Your Visit: acute pancreatitis Attending Provider: Deneen Felix Primary Care Provider: Rossi Jones Consulting Providers: Ray Grimm Instructions Patient Instructions: ED Pancreatitis Discharge Orders/Prescriptions Prescriptions: New oxycodone 5 mg tablet 5 mg PO Q6H PRN (Reason: pain) 3 Days Qty: 12 0RF Continued magnesium 200 mg tablet 200 mg PO DAILY oxycodone 5 mg Tablet 10 mg PO Q4H PRN PRN (Reason: Pain Score 4-10) 3 Days Qty: 20 0RF metoclopramide HCl [Reglan] 10 mg tablet 10 mg PO Q8H 10 Days Qty: 30 0RF naloxone [Narcan] 4 mg/actuation spray,non-aerosol 1 spray intranasal Q3M PRN (Reason: opioid overdose) Qty: 2 0RF Rx Instructions: spray 1 dose into ONE nostril; alternate nostrils w each dose until help arrives potassium chloride 20 mEq Tablet,Er Particles/Crystals 20 meq PO BIDCM 5 Days Qty: 20 0RF Lactobacillus acidophilus 500 million cell capsule 500 mmu cells PO BID folic acid 1 mg tablet 1 mg PO DAILY thiamine HCl (vitamin B1) 100 mg tablet 100 mg PO DAILY melatonin 10 mg tablet 10 - 20 mg PO QHS albuterol sulfate 90 mcg/actuation HFA aerosol inhaler 1 - 2 puff inhalation Q6H PRN (Reason: ASTHMA ) omeprazole 40 mg capsule,delayed release(DR/EC) 40 mg PO DAILY 30 Days Qty: 30 0RF dicyclomine 20 mg tablet 20 mg PO BID PRN (Reason: abdominal pain) Qty: 60 0RF Discontinued oxycodone 5 mg capsule 5 mg PO Q6H PRN (Reason: pain) 4 Days Qty: 14 0RF Referrals / Follow Up: Rossi Jones DO [Primary Care Provider] - Within 1 Week Raj Miller DO [Med Staff - Active Staff] - Within 2 Weeks Disposition Disposition (needs filled in before D/C Order can be placed): Home, Self Care Charges/Coding Visit Charges Inpatient E&M: 76245 Disch Hosp >30min
== END 2024-02-14 11:15 | disposition home or self-care (01) | DRG 282 ==
LOC: ED 20:54 → MS3 22:22
PROVIDERS: Internal Medicine Gastroenterology; Admitting Provider Hospitalist; Emergency Provider Emergency Medicine; PCP Family Medicine; Visit Provider Student in an Organized Health Care Education/Training Program
DX: K85.90 Acute pancreatitis without necrosis or infection, unspecified (principal); F17.210 Nicotine dependence, cigarettes, uncomplicated; K86.1 Other chronic pancreatitis; K59.00 Constipation, unspecified; Z68.26 Body mass index [BMI] 26.0-26.9, adult; Z79.899 Other long term (current) drug therapy; Z90.49 Acquired absence of other specified parts of digestive tract
CPT/HCPCS: 36415; 74177; 80048; 80053; 81001; 82150; 82962; 83690; 84703; 85025; 85027; 85652; 86140; 96361; 96374; 96375; 96376; 99282; 99284; 99406; Q9967; A4216; J2405

== ENCOUNTER 2024-03-15 13:34 | Inpatient (IN) | payer MEDICAID, SELFPAY ==
[2024-03-15 13:35] VITALS: BP 158/107; PULSE 114; RESP 18; TEMP 36.2; O2SAT 99; BMI 24.5
--- NOTE | 2024-03-15 13:53 | EKG12_ITS ---
Test Reason : CP Blood Pressure : / mmHG Vent. Rate : 091 BPM Atrial Rate : 091 BPM P-R Int : 140 ms QRS Dur : 080 ms QT Int : 362 ms P-R-T Axes : 056 038 034 degrees QTc Int : 445 ms Normal sinus rhythm Nonspecific ST abnormality Abnormal ECG Confirmed by Aleksey Michele ([id number]), staff editor FREDA PARRA ([id number]) on 03/16/2024 2:05:44 PM Referred By: Confirmed By:Aleksey Michele
--- NOTE | 2024-03-15 13:56 | NURSING ---
NO OLD EKG
[2024-03-15] MEDS: Morphine 4 MG/ML Syringe IV ×2 (14:00→15:16)
[2024-03-15] MEDS: Ondansetron 4 MG/2 ML Vial IV (14:00)
[2024-03-15] MEDS: 0.9% Normal Saline (1000mL) 1,000 ML 999 ML IV (14:02)
--- NOTE | 2024-03-15 14:07 | EX.ED.DYSGE1 ---
HPI History of Present Illness Chief Complaint: General Illness Detail of Chief Complaint: Left-sided chest pain and left upper quadrant abdominal pain Informant: patient and parent Onset/Context/Timing Onset: Days (Onset of most recent episode 3 days ago) Context: Sudden Onset Timing: Continuous Quality: Pain Location: Anterior upper left chest and left upper quadrant Current Severity: Moderate Maximum Severity: Severe Worsened by: Movement and breathing with respect to the chest pain and palpation with re Relieved by: Nothing Associated Symptoms Associated Symptoms: Nausea and vomiting x 3 today. Narrative Narrative: Patient is a 33-year-old female. She has history of pancreatitis. She has been seen by Dr. Miller with during her most recent admission at [facility]. She apparently was recently discharged from [facility] last week. 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 Test were pending at the time of Dr. Miller's consultation and will need to review those tests. Patient denies fever, chills night sweats. She does report mild rhinorrhea and postnasal drainage. She also endorses sore throat. She does have a cough productive of phlegm. She does not know the color of the phlegm. She is a smoker. She is cut down to 2 to 3 cigarettes a day. She denies headache, ear or auditory symptoms. She denies neck pain or neck stiffness. She does have left-sided chest pain that has been constant for 3 days. It is worse with movement and breathing. She has no history of VTE. She denies leg pain, swelling or discoloration. The abdominal pain is described as sharp. She did not start vomiting until today. She has 3 episodes. She denies hematemesis or coffee-ground emesis. She denies black or maroon-colored stool. She denies dysuria, frequency, urgency or hematuria. She denies change in the color of her urine. Prior similar symptoms: Yes Recent Illness/Hospitalization: Yes [facility] Medical History Abdominal pain Pancreatitis Pancreatitis IBS (irritable bowel syndrome) Contusion of unspecified foot, initial encounter Unspecified sprain of unspecified foot, initial encounter Home Medications ?Medication ?Instructions ?Recorded ?Last Taken ?Type Lactobacillus acidophilus 500 500 mmu cells PO BID [facility] EHR HEALTH 01/12/24 01/12/24 History million cell capsule albuterol sulfate 90 mcg/actuation 1 - 2 puff inhalation Q6H PRN 01/12/24 Unknown History aerosol inhaler ASTHMA folic acid 1 mg tablet 1 mg PO DAILY SUPPLEMENT 01/12/24 01/12/24 History melatonin 10 mg tablet 10 - 20 mg PO QHS SLEEP 01/12/24 01/11/24 History thiamine HCl (vitamin B1) 100 mg 100 mg PO DAILY SUPPLEMENT 01/12/24 01/12/24 History tablet omeprazole 40 mg capsule,delayed 40 mg PO DAILY GERD 30 days #30 01/15/24 Unknown Rx release caps dicyclomine 20 mg tablet 20 mg PO BID PRN abdominal pain 01/18/24 Unknown Rx #60 tabs magnesium 200 mg tablet 200 mg PO DAILY deficient in mag 01/30/24 Unknown History and potassium metoclopramide HCl 10 mg tablet 10 mg PO Q8H nausea and vomiting 02/03/24 Unknown Rx (Reglan) 10 days #30 tabs naloxone 4 mg/actuation nasal 1 spray intranasal Q3M PRN opioid 02/03/24 Unknown Rx spray (Narcan) overdose #2 ea oxycodone 5 mg tablet 10 mg (2 x 5 mg) PO Q4H PRN PRN 02/03/24 Unknown Rx Pain Score 4-10 3 days #20 tabs potassium chloride 20 mEq 20 meq PO BIDCM low potassium 5 02/03/24 Unknown Rx tablet,extended release(part/cryst) days #20 tabs oxycodone 5 mg tablet 5 mg PO Q6H PRN pain 3 days #12 02/14/24 Unknown Rx tabs Allergy/AdvReac Type Severity Reaction Status Date / Time codeine AdvReac Intermediate Vomiting Verified 03/15/24 13:37 Surgical History History of cholecystectomy Social History (Updated 03/15/24 @ 14:[address] Nahum Lockett MD) Smoking Status: Current every day smoker tobacco type: cigarettes details: no alcohol substance use type: marijuana ROS ROS ED Constitutional Constitutional ED: Denies chills, fever(s), subjective, sweats or weight loss Eyes Eyes: Denies blurry vision or change in vision ENT ENT ED: Reports rhinorrhea and sore throat; Denies ear pain Cardiovascular Cardiovascular: Reports chest pain; Denies orthopnea, palpitations, paroxysmal nocturnal dyspnea or racing heartbeat Respiratory/Chest Respiratory/Chest: Reports cough, dyspnea, dyspnea on exertion and sputum; Denies orthopnea or paroxysmal nocturnal dyspnea Gastrointestinal Gastrointestinal: Reports abdominal pain, nausea and vomiting; Denies constipation, diarrhea or melena Genitourinary Genitourinary ED: Denies dysuria, hematuria or urinary frequency Musculoskeletal Musculoskeletal: Reports other Details: The anterior left chest pain does radiate through to the left upper back. ; Denies arthralgias, back pain, myalgias or neck pain Integumentary Denies abscess, Abrasions or rash Neurologic Neurologic: Denies headache(s), paresthesias or weakness Psychiatric Psychiatric: Denies anxiety or depression Endocrine Endocrinology: Denies cold intolerance or heat intolerance EXAM Physical Exam Const Vital Signs: 03/15/24 13:35 Temperature 97.2 F L Temperature Source Temporal Pulse Rate 114 H Respiratory Rate 18 Blood Pressure 158/107 H Blood Pressure Mean 124 Pulse Ox 99 Oxygen Delivery Method Room Air Positive well nourished and well developed Constitutional Narrative: Patient appears pale. She is tachypneic and breathing more rapidly than 18 times a minute. General Appearance ED: well developed and pallor; Negative for cyanotic, diaphoretic or NAD HEENT Reports dry mucous membranes HEENT Narrative: Head is atraumatic normocephalic. Ears normal. Nares patent. Posterior pharynx is normal. Mouth ED: Yes dry mucous membranes Mouth: dry mucous membranes Eyes PERRL and EOMs intact bilaterally General Eye ED: Negative for pale conjunctiva or scleral icterus Neck no lymphadenopathy, supple and no JVD Chest Wall inspection of chest normal and palpation of chest normal Resp normal respiratory effort and clear to auscultation bilaterally Effort and Inspection: pain with movement; Negative for retractions Cardio regular rate, regular rhythm, S1 normal heart sound, S2 normal heart sound and no murmurs GI non-distended and no masses; Negative for non-tender or hepatosplenomegaly Inspection: Negative for abdominal distention Auscultation: hypoactive bowel sounds Palpation: soft and tender LLQ and LUQ Back/Spine no CVA tenderness Back/Spine Narrative: Inspection of the back is normal. Extremity normal to inspection Extremity Narrative: There is no asymmetry, swelling, discoloration, leg vein distention, palpable cords or tenderness along the distribution of the deep venous system. General Extremety ED: Negative for edema or tenderness General Extremity: Negative for edema Neuro oriented x3 and CN's II-XII intact bilaterally Sensorium / Orientation: alert Motor Exam: strength 5/5 throughout Psych Mood & Affect: anxious Skin no rashes or lesions noted, no wounds and skin turgor normal General Skin Exam: elasticity normal and pallor; Negative for jaundice MDM MDM MDM Narrative Medical decision making narrative: Reportedly she has a pleural effusion. This may be the cause of her chest pain. Will obtain chest x-ray to assess for evidence of pneumonia, pneumothorax. Patient's history is not consistent with a PE. Suspect her pain is due to to her pancreatitis. Will obtain appropriate abdominal labs to assess white count, H&H, liver enzymes, lipase. Clinically she is dehydrated. She will receive 1 L of normal saline. She received Zofran for her nausea and vomiting and morphine for her pain. With normal heart rate no prior history of VTE no hormonal therapy patient is PERC negative. History & Record Review Additional record(s) reviewed:: Prior inpatient record, Prior ED visit and Prior labs Lab Data Attestation: I reviewed the patient's lab results. Lab results narrative: White count, H&H and differential are normal. Basic metabolic panel is normal. Alkaline phosphatase slightly elevated 166. Lipase is elevated 114. This is approximately 2 times normal. Labs: Laboratory Results - last 24 hr 03/15/24 14:06 WBC 10.1 RBC 4.65 Hgb 13.4 Hct 42.9 MCV 92.3 MCH 28.8 MCHC 31.2 L RDW Std Deviation 47.6 H RDW Coeff of Mercedes 14.2 Plt Count 488 H MPV 11.5 Immature Gran % (Auto) 0.500 Neut % (Auto) 63.2 Lymph % (Auto) 27.1 [place] % (Auto) 4.0 Eos % (Auto) 4.6 Baso % (Auto) 0.6 Absolute Neuts (auto) 6.4 Absolute Lymphs (auto) 2.74 Nucleated RBC % 0 Sodium 139 Potassium 4.2 Chloride 106 Carbon Dioxide 24.0 Anion Gap 9 BUN 8 Creatinine 0.56 Estim Creat Clear Calc 123.79 Est GFR (MDRD) Af Amer 161 Est GFR (MDRD) Non-Af 133 BUN/Creatinine Ratio 14.3 Glucose 89 Lactic Acid 1.9 Calcium 9.5 Total Bilirubin 0.40 Direct Bilirubin 0.07 AST 35 ALT 20 Alkaline Phosphatase 166 H Total Protein 7.5 Albumin 3.0 L Globulin 4.5 H Lipase 114 H Serum , Qual NEGATIVE EKG Initial EKG: Attestation: I personally reviewed and interpreted this EKG as follows: Interpretation: Sinus Rhythm (Rate is 91. There is nonsevere changes noted. MA interval is 140 ms. Castration 80 ms. QT duration thinner 60 ms. [place] is normal) Management Discussion w/another healthcare provider: Material Handler (Spoke with Dr. Miller who has seen her in the past. Reviewed her history and physical with him. He requested a lactate, ESR and CRP. Agrees at this time imaging does not need to be done. Will contact hospitalist for admission.) Discharge Plan Triage Chief Complaint: General Illness ED Provider: Nahum Lockett Dx/Rx/DC Orders Clinical Impression: Acute pancreatitis, Acute dehydration, Left-sided chest pain Prescriptions: No Action magnesium 200 mg tablet 200 mg PO DAILY oxycodone 5 mg Tablet 10 mg PO Q4H PRN PRN (Reason: Pain Score 4-10) 3 Days Qty: 20 0RF metoclopramide HCl [Reglan] 10 mg tablet 10 mg PO Q8H 10 Days Qty: 30 0RF naloxone [Narcan] 4 mg/actuation spray,non-aerosol 1 spray intranasal Q3M PRN (Reason: opioid overdose) Qty: 2 0RF Rx Instructions: spray 1 dose into ONE nostril; alternate nostrils w each dose until help arrives potassium chloride 20 mEq Tablet,Er Particles/Crystals 20 meq PO BIDCM 5 Days Qty: 20 0RF Lactobacillus acidophilus 500 million cell capsule 500 mmu cells PO BID folic acid 1 mg tablet 1 mg PO DAILY thiamine HCl (vitamin B1) 100 mg tablet 100 mg PO DAILY melatonin 10 mg tablet 10 - 20 mg PO QHS albuterol sulfate 90 mcg/actuation HFA aerosol inhaler 1 - 2 puff inhalation Q6H PRN (Reason: ASTHMA ) omeprazole 40 mg capsule,delayed release(DR/EC) 40 mg PO DAILY 30 Days Qty: 30 0RF oxycodone 5 mg tablet 5 mg PO Q6H PRN (Reason: pain) 3 Days Qty: 12 0RF dicyclomine 20 mg tablet 20 mg PO BID PRN (Reason: abdominal pain) Qty: 60 0RF Primary Care Provider: Rossi Jones Referrals: Rossi Jones DO [Primary Care Provider] - Print Language: Honduran Disposition Disposition: Acute Care Hospital [facility]
[2024-03-15 14:24] LABS: Absolute Lymphocyte Count 2.74 X10^3/uL (0.83-4.51); Absolute Neutrophil Count 6.4 X10^3/uL (2.0-7.7); Basophil# 0.06 X10^3/uL; Basophil% 0.6 % (0-1); Eosinophil# 0.47 X10^3/uL; Eosinophils% 4.6 % (0-5); Hematocrit 42.9 % (37-47); Hemoglobin 13.4 g/dL (12.0-15.0); Lymphocyte # 2.74 X10^3/ul (0.83-4.51); Lymphocyte % 27.1 % (19-41); Mean Corp Hgb Conc 31.2 g/dL (32-36); Mean Corpuscular Hgb 28.8 pg (27.0-32.0); Mean Corpuscular Volume 92.3 fL (81-99); Mean Platelet Vol. 11.5 fl (6.2-12.0); NRBC Flagged by Analyzer 0 % (0-5); Neutrophil % 63.2 % (47-70); Platelet Count 488 K/mm3 (150-450); RBC Distribution Width CV 14.2 % (11.6-14.6); RBC Distribution Width SD 47.6 fl (35.1-43.9); Red Blood Count 4.65 M/mm3 (4.2-5.4); White Blood Count 10.1 K/mm3 (4.4-11.0)
[2024-03-15 14:50] LABS: Internal QC Validated? YES +Cl - CLEAR BKGD; Pregnancy, Serum, hCG Quali. NEGATIVE Negative; Record Kit Lot#, Serum Preg. 772476
[2024-03-15 14:57] LABS: AST(SGOT) 35 U/L (15-37); Alanine Aminotransfer ALT/SGPT 20 U/L (13-56); Alkaline Phosphatase 166 U/L (45-117); Anion Gap 9 (5-15); BUN 8 mg/dL (7-18); BUN/Creat Ratio 14.3 RATIO (10-20); Bilirubin, Direct 0.07 mg/dL (0.00-0.30); Calcium,Total 9.5 mg/dL (8.5-10.1); Chloride 106 mmol/L (98-107); Creatinine, Serum 0.56 mg/dL (0.55-1.02); EST Glomerular Filtration Rate 133 mL/min (>60); Est Glom Filt Rate - Afr Amer 161 mL/min (>60); Estimated Creatinine Clearance 123.79 ml/min; Globulin 4.5 g/dL (2.2-4.2); Glucose 89 mg/dL (74-106); Lipase 114 U/L (13-75); Potassium 4.2 mmol/L (3.5-5.1); Protein, Total 7.5 g/dL (6.4-8.2); Sodium Level 139 mmol/L (136-145)
[2024-03-15 15:01] LABS: Lactic Acid 1.9 mmol/L (0.4-1.9)
[2024-03-15 15:34] VITALS: BP 119/76; PULSE 88; RESP 18; O2SAT 97
[2024-03-15 16:05] LABS: Mucous, Urine 0 SEEN /hpf (<or=2+); Red Blood Cells-Urine 0 SEEN /hpf (0-5); White Blood Cells 0 SEEN /hpf (0-5)
[2024-03-15 16:11] LABS: Color, Urine Yellow (Yellow); Glucose, Dipstick Normal (Normal); Ketone-Dipstick Negative (Negative); Leukocyte Esterase-Dipstick Negative /ul (Negative); Nitrite-Dipstick Negative (Negative); Occult Blood-Urine Negative /ul (Negative); Protein-Dipstick Negative (Negative); Urine Bilirubin Dipstick Negative (Negative); Urine Clarity Clear (Clear); Urine Urobilinogen Normal (Normal); Urine pH 6.5 (5.0 - 8.0)
[2024-03-15 16:24] LABS: Erythrocyte Sedimentation Rate 31 mm/hr (0-30)
--- NOTE | 2024-03-15 16:26 | HP.PCM.HOS_ITS ---
HPI - General General Date of Admission: 03/15/24 Date of Service: 03/15/24 Chief Complaint: Abd pain n/v HPI Narrative FEROZ CHEEK, is a 33 y/o F with history of recurrent pancreatitis, tobacco use, marijuana use who presented to [facility] ED 03/15/2024 with nausea and vomiting. He has been admitted several times to our hospital in the past few months and was recently discharged from [facility] last week. Patient has been seen by Dr. Miller in consultation and had a ERCP with stent placement 1 month ago. Today she reports left-sided chest pain for 3 days worse with movement and breathing and abdominal pain that is sharp with vomiting that started today x 3 episodes. In the ED patient lipase of 114, alk phos 166 and platelet count slightly elevated 488 with mild tachycardia of 114, workup otherwise negative. GI contacted in ED who recommended adding on ESR, CRP, lactate and admitting for recurrent acute pancreatitis. Repeat imaging was not recommended at this time. Patient evaluated at bedside, reports that she has had some left-sided abdominal and chest pain worse with deep breaths and palpation and last night her epigastric/left-sided abdominal pain worsened and this a.m. worsened further and she began having nausea and vomiting. Feeling slightly better after pain medication. Was discharged recently from [facility] for similar complaints but was treated conservatively. Patient expresses her frustration at recurrent episodes and having to come back to the hospital and continuing to have flareups and pain. Supportive care provided. Patient cutting down on smoking cigarettes, had 1 puff of marijuana 1 time without any other instances or substance use. Reports sometimes feeling clammy but ROS otherwise negative. [facility] Medical History Abdominal pain Pancreatitis Pancreatitis IBS (irritable bowel syndrome) Contusion of unspecified foot, initial encounter Unspecified sprain of unspecified foot, initial encounter Home Medications ?Medication ?Instructions ?Recorded ?Last Taken ?Type Lactobacillus acidophilus 500 500 mmu cells PO BID [facility] HEALTH 01/12/24 01/12/24 History million cell capsule albuterol sulfate 90 mcg/actuation 1 - 2 puff inhalation Q6H PRN 01/12/24 Unknown History aerosol inhaler ASTHMA folic acid 1 mg tablet 1 mg PO DAILY SUPPLEMENT 01/12/24 01/12/24 History melatonin 10 mg tablet 10 - 20 mg PO QHS SLEEP 01/12/24 01/11/24 History thiamine HCl (vitamin B1) 100 mg 100 mg PO DAILY SUPPLEMENT 01/12/24 01/12/24 History tablet omeprazole 40 mg capsule,delayed 40 mg PO DAILY GERD 30 days #30 01/15/24 Unknown Rx release caps dicyclomine 20 mg tablet 20 mg PO BID PRN abdominal pain 01/18/24 Unknown Rx #60 tabs magnesium 200 mg tablet 200 mg PO DAILY deficient in mag 01/30/24 Unknown History and potassium metoclopramide HCl 10 mg tablet 10 mg PO Q8H nausea and vomiting 02/03/24 Unknown Rx (Reglan) 10 days #30 tabs naloxone 4 mg/actuation nasal 1 spray intranasal Q3M PRN opioid 02/03/24 Unknown Rx spray (Narcan) overdose #2 ea oxycodone 5 mg tablet 10 mg (2 x 5 mg) PO Q4H PRN PRN 02/03/24 Unknown Rx Pain Score 4-10 3 days #20 tabs potassium chloride 20 mEq 20 meq PO BIDCM low potassium 5 02/03/24 Unknown Rx tablet,extended release(part/cryst) days #20 tabs oxycodone 5 mg tablet 5 mg PO Q6H PRN pain 3 days #12 02/14/24 Unknown Rx tabs Allergy/AdvReac Type Severity Reaction Status Date / Time codeine AdvReac Intermediate Vomiting Verified 03/15/24 13:37 Surgical History History of cholecystectomy Social History (Updated 03/15/24 @ 14:[address] Nahum Lockett MD) Smoking Status: Current every day smoker tobacco type: cigarettes details: no alcohol substance use type: marijuana ROS ROS Narrative General: Denies fever, sometimes feels she has almost chills or clamminess HENT: Denies headache, denies stuffy nose, denies sore throat EYES: Denies changes in vision Resp: Has had slight cough since before she was discharged from [facility], denies shortness of breath Cardiac: Some lateral chest wall pain worse with palpation GI: Abdominal pain in epigastric region but more so left and radiates up and around, has had some nausea and vomiting today, no diarrhea, notes she is able to use the bathroom it has been slightly harder : Denies changes in urination Extremity: Denies swelling MSK: Denies weakness Neuro: Denies any numbness/tingling Heme: Denies any bleeding or bruising Skin: Denies rashes Psychiatric: Patient frustrated with having to repeatedly come back to the hospital Vital Signs Vital Signs Vital Signs: 03/15/24 13:35 Temperature 97.2 F L Temperature Source Temporal Pulse Rate 114 H Respiratory Rate 18 Blood Pressure 158/107 H Blood Pressure Mean 124 Pulse Ox 99 Oxygen Delivery Method Room Air Weight Weight: 60.781 kg Body Mass Index (BMI) 24.5 Physical Exam Narrative General: Alert, oriented, HEENT: Atraumatic, normocephalic Eyes: Anicteric, normal conjunctiva, extraocular movements grossly intact Neck: Supple Respiratory: Clear to auscultation bilaterally, normal respiratory effort Cardiovascular: Regular rate and rhythm GI: Soft, nondistended, tender primarily on left side of abdomen without rebound, guarding, rigidity Extremities: No edema Musculoskeletal: Moving all extremities Neuro: No overt focal neurological deficits Skin: No rashes appreciated Psych: Tearful Results Lab / Micro Data 03/15/24 14:06 03/15/24 14:06 Labs: Laboratory Results - last 24 hr 03/15/24 14:06: WBC 10.1, RBC 4.65, Hgb 13.4, Hct 42.9, MCV 92.3, MCH 28.8, MCHC 31.2 L, RDW Std Deviation 47.6 H, RDW Coeff of Mercedes 14.2, Plt Count 488 H, MPV 11.5, Immature Gran % (Auto) 0.500, Neut % (Auto) 63.2, Lymph % (Auto) 27.1, [place] % (Auto) 4.0, Eos % (Auto) 4.6, Baso % (Auto) 0.6, Absolute Neuts (auto) 6.4, Absolute Lymphs (auto) 2.74, Nucleated RBC % 0, ESR 31 H, Sodium 139, Potassium 4.2, Chloride 106, Carbon Dioxide 24.0, Anion Gap 9, BUN 8, Creatinine 0.56, Estim Creat Clear Calc 123.79, Est GFR (MDRD) Af Amer 161, Est GFR (MDRD) Non-Af 133, BUN/Creatinine Ratio 14.3, Glucose 89, Lactic Acid 1.9, Calcium 9.5, Total Bilirubin 0.40, Direct Bilirubin 0.07, AST 35, ALT 20, Alkaline Phosphatase 166 H, Total Protein 7.5, Albumin 3.0 L, Globulin 4.5 H, Lipase 114 H, Serum , Qual NEGATIVE Assessment & Plan Assessment/Plan (1) Acute pancreatitis: PLAN: Plan # Recurrent episodes of pancreatitis -Recurrent abdominal pain and lipase of 114 -Multiple hospitalizations recently and required biliary stent at a previous hospitalization -GI contacted in ED, is advised no further imaging needed at this time but recommended ESR, CRP, lactate -GI consult -N.p.o. -IV fluids -Pain control, supportive care # Left-sided chest wall pain -Pain reproducible on palpation, seems most consistent with chest wall pain -No auscultatory or respiratory findings -May be muscular from her bouts of nausea and vomiting -Lidocaine patch -Can consider further workup if not improving with conservative measures however patient 99% on room air and hypertensive not hypotensive, was initially very slightly tachycardic on presentation but seems to be due to pain and dehydration, no tachypnea -EKG with sinus rhythm and rate of 91 with no overt ischemic changes -Continue monitor -Incentive spirometry #Tobacco use -Advise cessation -Nicotine replacement available if desired #GERD -Continue PPI #DVT ppx: Lovenox subcu Jessi Ayers MD Charges/Coding Visit Charges Inpatient E&M: 11093 Init Hosp L1
[2024-03-15 16:40] LABS: Bacteria 1+ /hpf (None Seen); Squamous Epithelial Cells - UA 0-5 SEEN /hpf (5-10)
[2024-03-15 16:48] LABS: Lactic Acid 1.6 mmol/L (0.4-1.9)
[2024-03-15 17:00] VITALS: BP 130/91; PULSE 81; RESP 16; O2SAT 98
[2024-03-15 17:19] VITALS: BP 131/89; PULSE 81; RESP 16; TEMP 36.6; O2SAT 98
[2024-03-15 17:40] VITALS: BMI 24.5
[2024-03-15 17:51] LABS: CRP 4.34 mg/L (0.0-3.0)
[2024-03-15 18:27] VITALS: BP 119/93; PULSE 70; RESP 18; TEMP 36.4; O2SAT 98
[2024-03-15] MEDS: Lidocaine 5% Patch 1 PATCH TOPICAL (18:40)
[2024-03-15] MEDS: 0.9% Normal Saline (1000mL) 1,000 ML 200 ML IV ×2 (18:40→23:39)
[2024-03-15] MEDS: oxyCODONE 5 MG Tablet PO ×2 (18:49→22:41)
[2024-03-15 20:09] VITALS: BP 110/70; PULSE 79; RESP 16; TEMP 36.6; O2SAT 98
[2024-03-15] MEDS: Morphine 2 MG/ML Syringe IV ×2 (20:10→23:42)
[2024-03-15] MEDS: Acetaminophen 500 MG Tablet 1000 MG PO (20:16)
[2024-03-16] MEDS: 0.9% Normal Saline (1000mL) 1,000 ML 200 ML IV ×4 (04:33→19:19)
[2024-03-16] MEDS: Acetaminophen 500 MG Tablet 1000 MG PO ×3 (04:38→20:31)
[2024-03-16] MEDS: Morphine 2 MG/ML Syringe IV ×4 (04:39→17:41)
[2024-03-16 04:42] VITALS: BP 109/73; PULSE 79; RESP 16; TEMP 36.7; O2SAT 97
[2024-03-16] MEDS: Ondansetron 4 MG/2 ML Vial IV ×3 (04:46→20:26)
[2024-03-16 07:25] LABS: ALB/GLOB Ratio 0.6 RATIO (0.9-2.4); AST(SGOT) 77 U/L (15-37); Alanine Aminotransfer ALT/SGPT 31 U/L (13-56); Albumin, Serum 2.1 g/dL (3.2-5.0); Alkaline Phosphatase 140 U/L (45-117); Anion Gap 5 (5-15); BUN 6 mg/dL (7-18); BUN/Creat Ratio 12.6 RATIO (10-20); CRP 3.02 mg/L (0.0-3.0); Chloride 112 mmol/L (98-107); Creatinine, Serum 0.48 mg/dL (0.55-1.02); EST Glomerular Filtration Rate 160 mL/min (>60); Est Glom Filt Rate - Afr Amer 193 mL/min (>60); Estimated Creatinine Clearance 144.43 ml/min; Globulin 3.3 g/dL (2.2-4.2); Glucose 87 mg/dL (74-106); Magnesium 1.7 mg/dL (1.6-2.6); Potassium 3.8 mmol/L (3.5-5.1); Protein, Total 5.4 g/dL (6.4-8.2); Sodium Level 142 mmol/L (136-145)
[2024-03-16 08:15] LABS: Erythrocyte Sedimentation Rate 4 mm/hr (0-30)
[2024-03-16] MEDS: 0.9% Saline Lock 10 ML Syringe IV (08:30)
[2024-03-16 08:32] LABS: Absolute Lymphocyte Count 2.26 X10^3/uL (0.83-4.51); Absolute Neutrophil Count 3.7 X10^3/uL (2.0-7.7); Basophil# 0.03 X10^3/uL; Basophil% 0.4 % (0-1); Eosinophil# 0.34 X10^3/uL; Hematocrit 35.3 % (37-47); Hemoglobin 10.7 g/dL (12.0-15.0); Lymphocyte # 2.26 X10^3/ul (0.83-4.51); Lymphocyte % 33.2 % (19-41); Mean Corp Hgb Conc 30.3 g/dL (32-36); Mean Corpuscular Volume 95.7 fL (81-99); Mean Platelet Vol. 12.1 fl (6.2-12.0); Monocyte# 0.47 X10^3/uL; Monocyte% 6.9 % (0-10); NRBC Flagged by Analyzer 0 % (0-5); Neutrophil # 3.68 X10^3/uL (2.7-7.7); Neutrophil % 54.1 % (47-70); Platelet Count 346 K/mm3 (150-450); RBC Distribution Width CV 13.8 % (11.6-14.6); RBC Distribution Width SD 48.7 fl (35.1-43.9); Red Blood Count 3.69 M/mm3 (4.2-5.4); White Blood Count 6.8 K/mm3 (4.4-11.0)
[2024-03-16 10:00] VITALS: BP 118/80; PULSE 83; RESP 18; TEMP 36.7; O2SAT 99
[2024-03-16] MEDS: Enoxaparin 40 MG/0.4 ML Syringe SC (10:21)
[2024-03-16] MEDS: Pantoprazole Sodium 40 MG in 0.9% Normal Saline (100mL MB+) 100 ML 330 MG IV (10:21)
[2024-03-16] MEDS: oxyCODONE 5 MG Tablet PO ×3 (10:22→22:15)
--- NOTE | 2024-03-16 10:58 | CASEMGMT ---
[facility] CM Readmission Note Previous Admission: 02/10/24-02/14/24 Diagnosis: recurrent pancreatitis DC Disposition: Home with GI follow up Current Admission: Admitted 03/15/24 Current Diagnosis:recurrent acute pancreatitis Pt admitted previously for recurrent pancreatitis, was NPO, received IVF and pain meds. Pt was going to have endoscopic u/s with possible FNA to see if she truly had VLADISLAV neg and IgG autoimmune pancreatitis and to eval the pancreatic stricture but pt improved, kena diet and was to follow up as an outpt for this. Pt represented to [facility] with L side CP and L upper quad abd pain. Pt had just been dc'd from [facility] where she was admitted for 4 days. Pt has had a video appt with her PCP since last hospital stay and reports a CT is ordered from on 03/22. 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 Pt is I at home and denies any homegoing needs. GI to consult. DC Plan: Home
[2024-03-16] MEDS: Ensure Clear 120 ML Liquid PO (15:48)
--- NOTE | 2024-03-16 15:50 | PCM.OP.PRO ---
Procedure Report Date of Procedure: 03/16/24 Assessment & Plan Assessment/Plan (1) Acute pancreatitis: QUALIFIERS: Pancreatitis type: unspecified pancreatitis type Acute pancreatitis complication: unspecified Qualified Code(s): K85.90 - Acute pancreatitis without necrosis or infection, unspecified PLAN: Midline insertion in left basilic vein: Patient identity was verified with two patient identifiers. Hands were sanitized. The patient was positioned supine with left arm at 90 degrees. The patient's upper arm vasculature was assessed using ultrasound, and the left basilic vein was externally marked. An external measurement was obtained of 11 cm. Cap, mask, and prep gloves were donned. The underdrape was placed under the patient's arm. The site was prepped with chlorhexidine, and tourniquet was loosely applied. Prep gloves were discarded, and hands were sanitized. The sterile kit was opened with additional supplies dropped in. Sterile gown and gloves were donned, and the patient was draped. The sterile kit was assembled with all needle, introducer, connector, and catheter flushed with sterile normal saline. The marked site of insertion was anesthetized with 1% lidocaine. Patient tolerated well. The left basilic vein was then accessed using ultrasound guidance and guidewire was inserted to safety william. The tourniquet was released. The access needle was removed while securing the guidewire in place. The site was again anesthetized with 1% lidocaine, prior to insertion of introducer sheath and dilator. Patient tolerated well. The catheter was trimmed to a length of 11 cm, and again flushed with sterile normal saline. The catheter was then inserted through the introducer sheath, slowly. There was no resistance on insertion. The introducer sheath was retracted and peeled away, incrementally, while keeping the catheter secured. The catheter was fully inserted leaving 0 cm external. Once in position, blood return was unable to be verified. Multiple flushes were used to flush the catheter, for a total of 60 ml. Patient denies pain or other discomfort. Ultrasound was used to verify placement of catheter within the vessel. A flushed needless connector was attached. The midline was flushed again with sterile normal saline in a pulsatile fashion and clamped. Total sterile flushes used for the insertion was 7 10 ml syringes, one from the kit. Finally, the insertion site was cleaned with chlorhexidine, and the catheter was secured using a StatLock. The site was covered with a Tegaderm CHG Dressing. The primary nurse is aware that the midline is ready for use. I suspect the patient has easily collapsing veins with aspiration. The plan for the midline is to give IV fluids. I will check for blood return myself tomorrow when the patient has received more IV fluids. REF: [id number] LOT: [id number] Procedures Radiology Radiology Access Procedures: MIDL
[2024-03-16 16:30] VITALS: BP 115/76; PULSE 72; RESP 16; TEMP 36.7; O2SAT 99
--- NOTE | 2024-03-16 17:18 | CON.PCM.GI_ITS ---
HPI Consult Data Date of Consult: 03/16/24 HPI Narrative Reason for Consultation: Pancreatitis HPI Narrative: FEROZ CHEEK, is a33 y/o F with history of recurrent pancreatitis, tobacco use, marijuana use who presented to [facility] ED 03/15/2024 with nausea and vomiting. He has been admitted several times to our hospital in the past few months and was recently discharged from [facility] last week. Patient has been seen by myself in consultation and had a ERCP with stent placement 1 month ago. Today she reports left-sided chest pain for 3 days worse with movement and breathing and abdominal pain that is sharp with vomiting that started today x 3 episodes. In the ED patient lipase of 114, alk phos 166 and platelet count slightly elevated 488 with mild tachycardia of 114, workup otherwise negative. I was contacted in ED who recommended adding on ESR, CRP, lactate and admitting for recurrent acute pancreatitis. Repeat imaging was not recommended at this time. Patient evaluated at bedside, reports that she has had some left-sided abdominal and chest pain worse with deep breaths and palpation and last night her epigastric/left-sided abdominal pain worsened and this a.m. worsened further and she began having nausea and vomiting. Feeling slightly better after pain medication. Was discharged recently from [facility] for similar complaints but was treated conservatively. Patient expresses her frustration at recurrent episodes and having to come back to the hospital and continuing to have flareups and pain. Supportive care provided. Patient cutting down on smoking cigarettes, had 1 puff of marijuana 1 time without any other instances or substance use. Reports sometimes feeling clammy but ROS otherwise negative. [facility] Medical History Abdominal pain Pancreatitis Pancreatitis IBS (irritable bowel syndrome) Contusion of unspecified foot, initial encounter Unspecified sprain of unspecified foot, initial encounter Home Medications ?Medication ?Instructions ?Recorded ?Last Taken ?Type Lactobacillus acidophilus 500 500 mmu cells PO BID [facility] 01/12/24 01/12/24 History million cell capsule albuterol sulfate 90 mcg/actuation 1 - 2 puff inhalation Q6H PRN 01/12/24 Unknown History aerosol inhaler ASTHMA folic acid 1 mg tablet 1 mg PO DAILY SUPPLEMENT 01/12/24 01/12/24 History melatonin 10 mg tablet 10 - 20 mg PO QHS SLEEP 01/12/24 01/11/24 History thiamine HCl (vitamin B1) 100 mg 100 mg PO DAILY SUPPLEMENT 01/12/24 01/12/24 History tablet omeprazole 40 mg capsule,delayed 40 mg PO DAILY GERD 30 days #30 01/15/24 Unknown Rx release caps dicyclomine 20 mg tablet 20 mg PO BID PRN abdominal pain 01/18/24 Unknown Rx #60 tabs magnesium 200 mg tablet 200 mg PO DAILY deficient in mag 01/30/24 Unknown History and potassium metoclopramide HCl 10 mg tablet 10 mg PO Q8H nausea and vomiting 02/03/24 Unknown Rx (Reglan) 10 days #30 tabs potassium chloride 20 mEq 20 meq PO BIDCM low potassium 5 02/03/24 Unknown Rx tablet,extended release(part/cryst) days #20 tabs prochlorperazine maleate 10 mg 10 mg PO Q8H nausea 03/15/24 Unknown History tablet (Compazine) sennosides 8.6 mg-docusate sodium 1 tab-cap PO BID constipation 03/15/24 Unknown History 50 mg tablet (Senna Plus) Allergy/AdvReac Type Severity Reaction Status Date / Time codeine AdvReac Intermediate Vomiting Verified 03/15/24 13:37 Surgical History History of cholecystectomy Social History (Updated 03/15/24 @ 14:[address] Nahum Lockett MD) Smoking Status: Current every day smoker tobacco type: cigarettes details: no alcohol substance use type: marijuana ROS ROS Narrative General: Denies fever, sometimes feels she has almost chills or clamminess HENT: Denies headache, denies stuffy nose, denies sore throat EYES: Denies changes in vision Resp: Has had slight cough since before she was discharged from [facility], denies shortness of breath Cardiac: Some lateral chest wall pain worse with palpation GI: Abdominal pain in epigastric region but more so left and radiates up and around, has had some nausea and vomiting today, no diarrhea, notes she is able to use the bathroom it has been slightly harder : Denies changes in urination Extremity: Denies swelling MSK: Denies weakness Neuro: Denies any numbness/tingling Heme: Denies any bleeding or bruising Skin: Denies rashes Psychiatric: Patient frustrated with having to repeatedly come back to the hospital Physical Exam Narrative General: Alert, oriented, HEENT: Atraumatic, normocephalic Eyes: Anicteric, normal conjunctiva, extraocular movements grossly intact Neck: Supple Respiratory: Clear to auscultation bilaterally, normal respiratory effort Cardiovascular: Regular rate and rhythm GI: Soft, nondistended, tender primarily on left side of abdomen without rebound, guarding, rigidity Extremities: No edema Musculoskeletal: Moving all extremities Neuro: No overt focal neurological deficits Skin: No rashes appreciated Psych: Tearful Medical Records Data Medical Nutrition Assessment Dietitian: Malnutrition Criteria Met Start: 03/16/24 15:02 Freq: Status: Active Protocol: Document 03/16/24 15:02 (Rec: 03/16/24 15:02 [id number]) Nutrition Malnutrition Evidence of Malnutrition Exists Yes Malnutrition (severe): Acute Illness/Injury Clinical Problem Chronic Disease or Condition Related Malnutrition Etiology severe related to recurrent pancreatitis Signs/Symptoms as evidenced by 11.9lbs(8.1%) weight loss in 1 month and PO intakes <75% of estimated nutrition needs for >1 month Status Active Problem Recommendation Dietitian Recommendations/Changes ADAT to Low Fat diet when medically able to manage medical conditions. RD will order 120mL Ensure Clear 4x daily with medpass to provide supplemental energy. Lab / Micro Data 03/16/24 06:31 03/16/24 06:31 Labs: Laboratory Results - last 24 hr 03/15/24 14:06: C-React Prot Ext Range 4.34 H 03/16/24 06:31: WBC 6.8, RBC 3.69 L, Hgb 10.7 L, Hct 35.3 L, MCV 95.7, MCH 29.0, MCHC 30.3 L, RDW Std Deviation 48.7 H, RDW Coeff of Mercedes 13.8, Plt Count 346, MPV 12.1 H, Immature Gran % (Auto) 0.400, Neut % (Auto) 54.1, Lymph % (Auto) 33.2, [place] % (Auto) 6.9, Eos % (Auto) 5.0, Baso % (Auto) 0.4, Absolute Neuts (auto) 3.7, Absolute Lymphs (auto) 2.26, Nucleated RBC % 0, ESR 4, Sodium 142, Potassium 3.8, Chloride 112 H, Carbon Dioxide 25.0, Anion Gap 5, BUN 6 L, C reatinine 0.48 L, Estim Creat Clear Calc 144.43, Est GFR (MDRD) Af Amer 193, Est GFR (MDRD) Non-Af 160, BUN/Creatinine Ratio 12.6, Glucose 87, Calcium 8.0 L, Magnesium 1.7, Total Bilirubin 0.30, AST 77 H, ALT 31, Alkaline Phosphatase 140 H, C-React Prot Ext Range 3.02 H, Total Protein 5.4 L, Albumin 2.1 L, Globulin 3.3, Albumin/Globulin Ratio 0.6 L Assessment & Plan Assessment/Plan (1) Acute pancreatitis: PLAN: Plan 33-year-old with possible acute idiopathic pancreatitis versus acute alcoholic pancreatitis. This is moderate pancreatitis. I would not say is severe pancreatitis at this time due to normal kidney function. -Acute pancreatitis-I am okay with a clear liquid diet. I am also okay with Dilaudid as needed for pain and given Zofran for nausea. Labs will be monitored. There have been some cases of steroid in the case of acute idiopathic recurrent pancreatitis. If patient does not get better within the next couple days then we may have to consider steroid therapy. - Thickening of the colonic wall-this was read out today on her CT as possibly being chronic versus acute colitis, worst area in the sigmoid colon. - Patient underwent MRCP and it showed findings consistent with her previous CT scan and that she does have pancreatitis but there is no pancreatic divisum, sign of necrosis. Her hepatobiliary tree is normal size without ductal abnormality. She still continues to have a lot of pain. Workup was sent for alcohol induced pancreatitis such as GGT and HARPAL. Along with a 2-week alcohol A1c. I am not sure if this is an autoimmune phenomenon because her IgG4 is not back yet, VLADISLAV i are all normal. I also sent all triglycerides and they were normal. . 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 Continue supportive care. ERCP Impressions : - The patient has had a cholecystectomy. - An irregularity was found in the ventral pancreatic duct in the head of the pancreas. - Choledocholithiasis was found. Complete removal was accomplished by biliary sphincterotomy and balloon extraction. - A biliary sphincterotomy was performed. - The biliary tree was swept. - The right main hepatic duct was successfully dilated. - The lower third of the main bile duct was successfully dilated. - One temporary stent was placed into the common bile duct. 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 I will put her on scheduled Xanax to see if that calms down her gut and to see if that will decrease the amount of pain medicine she is requiring because she is having problems with constipation. Charges/Coding Visit Charges Inpatient E&M: 87609 [facility] Hosp L3
--- NOTE | 2024-03-16 18:00 | PN.HOSP_ITS ---
Reason for Visit Reason for Visit: Diagnoses Acute pancreatitis without necrosis or infection, unspecified (03/15/24) Subjective Subjective Patient was seen and examined today, she continues to have abdominal pain. I talked briefly with gastroenterology and they do not plan on doing any endoscopy on the patient at this time. I put the patient on clear liquid diet today. Objective Data Objective Data Vital Signs: Vital Signs Temp Pulse Resp BP Pulse Ox O2 Del Method 98.1 F 72 16 115/76 99 Room Air 03/16/24 16:30 03/16/24 16:30 03/16/24 16:30 03/16/24 16:30 03/16/24 16:30 03/16/24 16:30 Oxygen Delivery Method Room Air Weight: 60.781 kg Body Mass Index (BMI) 24.5 Intake & Output: Intake and Output for Last 24 Hours 03/14/24 03/15/24 03/16/24 23:59 23:59 23:59 Intake Total / 2295.67 0 / 3509 Balance 3509 / 3509 Medical Nutrition Assessment Dietitian: Malnutrition Criteria Met Start: 03/16/24 15:02 Freq: Status: Active Protocol: Document 03/16/24 15:02 LO (Rec: 03/16/24 15:02 [id number]) Nutrition Malnutrition Evidence of Malnutrition Exists Yes Malnutrition (severe): Acute Illness/Injury Clinical Problem Chronic Disease or Condition Related Malnutrition Etiology severe related to recurrent pancreatitis Signs/Symptoms as evidenced by 11.9lbs(8.1%) weight loss in 1 month and PO intakes <75% of estimated nutrition needs for >1 month Status Active Problem Recommendation Dietitian Recommendations/Changes ADAT to Low Fat diet when medically able to manage medical conditions. RD will order 120mL Ensure Clear 4x daily with medpass to provide supplemental energy. Lab / Micro Data 03/16/24 06:31 03/16/24 06:31 Labs: Laboratory Results - last 24 hr 03/16/24 06:31: WBC 6.8, RBC 3.69 L, Hgb 10.7 L, Hct 35.3 L, MCV 95.7, MCH 29.0, MCHC 30.3 L, RDW Std Deviation 48.7 H, RDW Coeff of Mercedes 13.8, Plt Count 346, MPV 12.1 H, Immature Gran % (Auto) 0.400, Neut % (Auto) 54.1, Lymph % (Auto) 33.2, [place] % (Auto) 6.9, Eos % (Auto) 5.0, Baso % (Auto) 0.4, Absolute Neuts (auto) 3.7, Absolute Lymphs (auto) 2.26, Nucleated RBC % 0, ESR 4, Sodium 142, Potassium 3.8, Chloride 112 H, Carbon Dioxide 25.0, Anion Gap 5, BUN 6 L, C reatinine 0.48 L, Estim Creat Clear Calc 144.43, Est GFR (MDRD) Af Amer 193, Est GFR (MDRD) Non-Af 160, BUN/Creatinine Ratio 12.6, Glucose 87, Calcium 8.0 L, Magnesium 1.7, Total Bilirubin 0.30, AST 77 H, ALT 31, Alkaline Phosphatase 140 H, C-React Prot Ext Range 3.02 H, Total Protein 5.4 L, Albumin 2.1 L, Globulin 3.3, Albumin/Globulin Ratio 0.6 L Physical Exam Const alert, oriented x3, no apparent distress, average body habitus and healthy appearing General Appearance: cooperative, well kempt and well developed Orientation / Consciousness: awake, oriented to person, oriented to place and oriented to time HEENT normocephalic, head/scalp atraumatic and moist oral mucous membranes Eyes PERRL, EOMs intact bilaterally and conjunctivae normal Neck supple, no JVD, thyroid normal and no carotid bruits General: trachea midline Resp normal respiratory effort, no retractions, no use of accessory muscles and clear to auscultation bilaterally Auscultation: Negative for rales, rhonchi or wheezes Cardio regular rate, regular rhythm, S1 normal heart sound, S2 normal heart sound, no murmurs, no rub and no gallops GI normal to inspection, nondistended, normoactive bowel sounds and non-distended GI Narrative: Abdomen is diffusely tender to palpation, no rebound abdominal tenderness was noted Extremity no clubbing, cyanosis or edema Skin no rashes or lesions noted General Skin Exam: no breakdown Neuro oriented x3, CN's II-XII intact bilaterally, no focal motor deficits and no sensory deficits noted Sensorium / Orientation: awake and alert Speech: speech normal Psych affect normal Assessment & Plan Assessment/Plan (1) Acute pancreatitis: QUALIFIERS: Pancreatitis type: unspecified pancreatitis type A cute pancreatitis complication: unspecified Qualified Code(s): K85.90 - Acute pancreatitis without necrosis or infection, unspecified PLAN: Plan 1. Acute recurrent pancreatitis-etiology unclear at this point, continue IV fluids and analgesic medications #2 acute anemia-etiology unclear, CBC will be rechecked tomorrow Total clinical time spent by myself addressing the patient's medical issues, reviewing all of her data, and collaborating with patient's care team: 25 minutes Charges/Coding Visit Charges Inpatient E&M: 73609 Subs Hosp L1
[2024-03-16 18:17] LABS: Internal QC Validated? YES +Cl - CLEAR BKGD; Pregnancy, Urine Negative Negative; Record Kit Lot#,Urine Preg 772476
[2024-03-16 20:35] VITALS: BP 115/73; PULSE 78; RESP 16; TEMP 36.4; O2SAT 98
[2024-03-17] VITALS (12 sets, daily range): BP systolic 100–133; BP diastolic 67–86; PULSE 55–106; RESP 15–18; TEMP 36.1–37; O2SAT 93–100; BMI 26.9
[2024-03-17] MEDS: 0.9% Normal Saline (1000mL) 1,000 ML 200 ML IV ×4 (00:26→22:36)
[2024-03-17] MEDS: Morphine 2 MG/ML Syringe IV ×6 (00:31→22:37)
[2024-03-17] MEDS: Ondansetron 4 MG/2 ML Vial IV ×2 (00:37→08:44)
[2024-03-17] MEDS: Acetaminophen 500 MG Tablet 1000 MG PO (05:00)
[2024-03-17 05:07] LABS: Absolute Lymphocyte Count 1.75 X10^3/uL (0.83-4.51); Absolute Neutrophil Count 2.6 X10^3/uL (2.0-7.7); Basophil# 0.03 X10^3/uL; Basophil% 0.6 % (0-1); Eosinophil# 0.28 X10^3/uL; Eosinophils% 5.6 % (0-5); Hematocrit 34.4 % (37-47); Hemoglobin 10.7 g/dL (12.0-15.0); Lymphocyte # 1.75 X10^3/ul (0.83-4.51); Mean Corp Hgb Conc 31.1 g/dL (32-36); Mean Corpuscular Hgb 29.1 pg (27.0-32.0); Mean Corpuscular Volume 93.5 fL (81-99); Mean Platelet Vol. 11.4 fl (6.2-12.0); Monocyte# 0.29 X10^3/uL; Monocyte% 5.8 % (0-10); NRBC Flagged by Analyzer 0 % (0-5); Neutrophil # 2.64 X10^3/uL (2.7-7.7); Neutrophil % 52.8 % (47-70); Platelet Count 341 K/mm3 (150-450); RBC Distribution Width CV 13.5 % (11.6-14.6); RBC Distribution Width SD 46.5 fl (35.1-43.9); Red Blood Count 3.68 M/mm3 (4.2-5.4)
[2024-03-17 05:21] LABS: International Normalized Ratio 1.2; Partial Thromboplast Time 28.7 Seconds (24.1-36.2); Prothrombin Time (Protime)PT. 15.3 SECONDS (11.7-14.9)
[2024-03-17] MEDS: Pantoprazole Sodium 40 MG in 0.9% Normal Saline (100mL MB+) 100 ML 330 MG IV (09:58)
[2024-03-17] MEDS: 0.9% Normal Saline (1000mL) 1,000 ML 15 ML IV (10:39)
--- NOTE | 2024-03-17 10:50 | PRE.ANES_ITS ---
ASA Classification* ASA Classification ASA Classification: 2 Assessment & Plan Anesthesia* Anesthesia Assessment Anesthesia Assessment: Discussed sedation and/or anesthesia options, risks, benefits, and alternatives with patient/parents/legal guardian/POA. Questions invited. The patient/parents/legal guardian/POA seems to understand and agrees to proceed with anesthesia plan. Reviewed the physical assessment, medical history, allergy history and patient home medications list prior to surgery/procedure/anesthetic and documented any changes. Performed airway and anesthesia risk assessments. Anesthesia Type Anesthesia Type: General History Source History Obtained from:: Patient and Chart Anesthesia Focused Assessment* Temperature: 98.0 F Pulse Rate: 82 Blood Pressure: 133/83 Respiratory Rate: 16 Pulse Ox: 97 Oxygen Delivery Method: Room Air Airway Assessment Mouth opens: >3 cm Mallampati Score: II Teeth Condition: Full (Patient has full dentures.) Neck Range of motion (ROM): Full ROM Focused Labs Anesthesia Preop lab: CBC WBC 5.0 K/mm3 (4.4-11.0) 03/17/24 04:53 RBC 3.68 M/mm3 (4.2-5.4) L 03/17/24 04:53 Hgb 10.7 g/dL (12.0-15.0) L 03/17/24 04:53 Hct 34.4 % (37-47) L 03/17/24 04:53 Plt Count 341 K/mm3 (150-450) 03/17/24 04:53 CHEMISTRY Potassium 3.8 mmol/L (3.5-5.1) 03/16/24 06:31 Sodium 142 mmol/L (136-145) 03/16/24 06:31 Magnesium 1.7 mg/dL (1.6-2.6) 03/16/24 06:31 Phosphorus 2.9 mg/dL (2.5-4.9) 01/30/24 07:03 BUN 6 mg/dL (7-18) L 03/16/24 06:31 Creatinine 0.48 mg/dL (0.55-1.02) L 03/16/24 06:31 Glucose 87 mg/dL (74-106) 03/16/24 06:31 POC Glucose 106 mg/dL (74-106) 02/12/24 23:06 COAG PT 15.3 SECONDS (11.7-14.9) H 03/17/24 04:53 Urine Test Negative Negative 03/16/24 17:28 Pre-Assessment Diagnosis/Proposed Procedure Planned Operative Procedure(s): ERCP Anesthesia History 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 When Was Last Pacemaker Check QUESTION #4 FULL TEXT: You/Your Family Experience fever (hyperthermia) with Anesthesia Last Oral Intake Last Oral intake: Last Oral Intake NPO since Meds taken in AM with sips of water? 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 Female HX of Motion Sickness HX of N/V After Surgery Non-Smoker Duration of Surgery greater than 60 minutes Number of Risk Factors PONV Score Height & Weight Height & Weight: Anesthesia: Height & Weight Height 5 ft 2 in 03/16/24 14:39 Weight: 66.8 kg 03/17/24 04:54 Body Mass Index (BMI) 26.9 03/17/24 04:54 Respiratory Assessment Respiratory Assessment - variety performer: Respiratory Tract Infection Hx - variety performer Hx Respiratory Tract Infection No 02/01/24 00:51 STOP Sleep Apnea STOP Sleep Apnea - variety performer: STOP Sleep Apnea - variety performer Hx Hypertension No 03/15/24 17:40 Hx Sleep Apnea No 03/15/24 17:40 CPAP BIPAP Do you snore loudly (louder No 03/15/24 17:40 than talking or can be heard Do you often feel tired/ No 03/15/24 17:40 fatigued/ sleepy during daytime? Has anyone observed you stop No 03/15/24 17:40 breathing during sleep? STOP Results Negative 03/15/24 17:40 QUESTION #5 FULL TEXT : Do you snore loudly (louder than talking or can be heard through closed doors)? 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 Specify any problems Hx of Preganancy in last 3 No 03/15/24 17:40 Months Nurse Filling Out Transfusion ARICHARDS2 03/15/24 17:40 & Questions: Date: 03/15/24 03/15/24 17:40 Time: 17:46 03/15/24 17:40 Patient unable to answer at this time (ie. confused, unrespo /Reproduction History /Reproductive History - variety performer: /Reproductive Hx- variety performer Hx Now No 03/15/24 17:40 Gestational Age (in weeks): EDC: Hx Hx Para Hx Section SAB No 03/15/24 17:40 Active Medications Active Medications: Current Medications Generic Name Dose Route Start Last Admin Trade Name Freq PRN Reason Stop Dose Admin Acetaminophen 1,000 mg 03/15/24 22:00 03/17/24 05:00 Acetaminophen 500 Mg Tablet PO 1,000 mg Q8 LATASHA Administration Albuterol Sulfate 2.5 mg 03/15/24 17:58 Albuterol 2.5 Mg/3 Ml Vial.Neb. INHALATION Q2H PRN PRN SOB &/OR WHEEZING Enoxaparin Sodium 40 mg 03/16/24 10:00 03/17/24 09:13 Enoxaparin 40 Mg/0.4 Ml Syringe SC Not Given DAILY LATASHA Sodium Chloride 1,000 mls @ 200 mls/hr 03/15/24 17:58 03/17/24 10:45 IV 0 mls/hr .Q5H LATASHA Infusion Pantoprazole Sodium 40 mg/ 110 mls @ 330 mls/hr 03/16/24 10:00 03/17/24 10:45 Sodium Chloride IV Infused Q24 LATASHA Infusion Sodium Chloride 250 mls @ 15 mls/hr 03/15/24 18:20 IV .[id number] PRN Additional IVPB Infusion Sodium Chloride 250 mls @ 15 mls/hr 03/15/24 18:20 IV .[id number] PRN Saline Flush Sodium Chloride 1,000 mls @ 15 mls/hr 03/17/24 10:35 03/17/24 10:39 IV 15 mls/hr .Q48H LATASHA Administration Melatonin 3 mg 03/15/24 17:58 Melatonin 3 Mg Tablet PO QHS PRN PRN INSOMNIA Morphine Sulfate 2 - 4 mg 03/15/24 17:58 03/17/24 08:44 Morphine 2 Mg/Ml Syringe IV 2 mg Q3H PRN PRN Administration Pain Score 6-10 Morphine Sulfate 2 - 4 mg 03/15/24 18:38 Morphine 4 Mg/Ml Syringe IV Q3H PRN PRN Pain Score 6-10 Nicotine 7 mg 03/16/24 10:00 03/16/24 04:38 Nicotine 7 Mg Patch TD 7 mg DAILY LATASHA Administration Nutritional Formula (Lactose Free) 120 ml 03/16/24 18:00 03/17/24 07:35 Ensure Clear 120 Ml Liquid PO Not Given 4X/DAY LATASHA Ondansetron HCl 4 mg 03/15/24 17:58 03/17/24 08:44 Ondansetron 4 Mg/2 Ml Vial IV 4 mg Q8H PRN PRN Administration NAUSEA/VOMITING Oxycodone HCl 5 mg 03/15/24 17:58 03/16/24 22:15 Oxycodone 5 Mg Tablet PO 5 mg Q4H PRN PRN Administration Pain Score 4-10 Senna/Docusate Sodium 2 tablet 03/15/24 17:58 Senna/Docusate Sodium 1 Tablet PO BID PRN PRN Constipation Sodium Chloride 10 - 40 ml 03/15/24 18:20 03/16/24 08:30 0.9% Saline Lock 10 Ml Syringe IV 10 ml UD PRN Administration SALINE FLUSH PFSH Medical History (Updated 03/16/24 @ 15:51 by Teodora Ng, OLIVE-C) Abdominal pain Pancreatitis Pancreatitis IBS (irritable bowel syndrome) Contusion of unspecified foot, initial encounter Unspecified sprain of unspecified foot, initial encounter Home Medications ?Medication ?Instructions ?Recorded ?Last Taken ?Type Lactobacillus acidophilus 500 500 mmu cells PO BID [employer] 01/12/24 01/12/24 History million cell capsule albuterol sulfate 90 mcg/actuation 1 - 2 puff inhalation Q6H PRN 01/12/24 Unknown History aerosol inhaler ASTHMA folic acid 1 mg tablet 1 mg PO DAILY SUPPLEMENT 01/12/24 01/12/24 History melatonin 10 mg tablet 10 - 20 mg PO QHS SLEEP 01/12/24 01/11/24 History thiamine HCl (vitamin B1) 100 mg 100 mg PO DAILY SUPPLEMENT 01/12/24 01/12/24 History tablet omeprazole 40 mg capsule,delayed 40 mg PO DAILY GERD 30 days #30 01/15/24 Unknown Rx release caps dicyclomine 20 mg tablet 20 mg PO BID PRN abdominal pain 01/18/24 Unknown Rx #60 tabs magnesium 200 mg tablet 200 mg PO DAILY deficient in mag 01/30/24 Unknown History and potassium metoclopramide HCl 10 mg tablet 10 mg PO Q8H nausea and vomiting 02/03/24 Unknown Rx (Reglan) 10 days #30 tabs potassium chloride 20 mEq 20 meq PO BIDCM low potassium 5 02/03/24 Unknown Rx tablet,extended release(part/cryst) days #20 tabs prochlorperazine maleate 10 mg 10 mg PO Q8H nausea 03/15/24 Unknown History tablet (Compazine) sennosides 8.6 mg-docusate sodium 1 tab-cap PO BID constipation 03/15/24 Unknown History 50 mg tablet (Senna Plus) Allergy/AdvReac Type Severity Reaction Status Date / Time codeine AdvReac Intermediate Vomiting Verified 03/15/24 13:37 Surgical History (Updated 03/17/24 @ 10:[address] Sheldon Domingo MD) Previous section S/P ERCP History of cholecystectomy Social History (Updated 03/15/24 @ 14:[address] Nahum Lockett MD) Smoking Status: Current every day smoker tobacco type: cigarettes details: no alcohol substance use type: marijuana Review of Systems (Anesthesia) ROS Narrative System reviewed and no additional complaints, except as documented.
--- NOTE | 2024-03-17 11:30 | FLU_PTH ---
PATIENT: FEROZ CHEEK LOC: MS3 U#:[id number] AGE/SX: 33/F ROOM: MD315 RE03/15/[address]: Dr. Cas Moya DO : 1990 BED: 1 DIS: 03/18/2024 SPEC #: [id number] RECD: 03/17/24 13:51 STATUS: LANDY REBeth #: [id number] DOMINGA: 03/17/24 11:[address]: Raj Miller DEPT: CYTOLOGY RECD BY: Anna Newman ENTERED: 03/17/24 14:11 SP TYPE: Fluid OTHR DR: DO Dr. Cas Hairston DO Dr. Paige Pierce, MD Tissues: A - Biliary tract, NOS B - Biliary tract, NOS C - Biliary tract, NOS Procedures: Special Stain Group II Surgery Specimen Level IV Cytospin Fluid HEADER OPERATION: ERCP and stent removal PRE-OP DIAGNOSIS: Acute pancreatitis TISSUE SUBMITTED: A- Biliary stent for cytology, B- Brushings for cytology for biliary stricture, C- Slides DIAGNOSIS CYTOLOGY A. Biliary stent fluid for cytology (cytospin and cellblock): Negative for malignant cells. B. Brushings from biliary stricture (cytospin and cellblock): Rare atypical cells, favor reactive. C. Anderson smear from biliary tract smear: Mild glandular atypia, favor reactive. AM/ 03/21/2024 COMMENT Case has been reviewed in consultation with Dr. Johnson who concurs with the above diagnosis. IDC:SJ CYTOLOGY STUDY Slides are reviewed. CYTOLOGY GROSS A. Received is one stent with 0.5 ml of yellow thick fluid fluid labeled with the patient's name and and designated per the requisition as Biliary stent. Submitted for cytology preparation including cell block. B. Received is one brush tip ml of 0.2 fluid labeled with the patient's name and and designated per the requisition as Biliary stricture brushings. Submitted for cytology preparation including cell block. C. Received are 1 smears labeled with the patient's name and designated per the requisition as Biliary brushing. The smear is submitted for cytology. Mr 03/17/2024 TC:5 CPT: 13721,04281v4,03786
--- NOTE | 2024-03-17 11:50 | RAD_ITS ---
STUDY: ERCP. REASON FOR EXAM: Female, 33 years old. PAIN FLUOROSCOPY TIME (if supplied): ( 44 seconds ) minutes/seconds. 7.84 mGY. 7 fluoroscopic images were provided. TECHNIQUE: An ERCP was performed by the revenue stamp clerk. Imaging was provided. COMPARISON: None. FINDINGS: Unremarkable examination. RAD/ERCP Biliary/Pancreas IMPRESSION: Unremarkable examination. Electronically Signed: Babar Lopez MD at 13:20 EDT ,
--- NOTE | 2024-03-17 12:23 | OP.CCLET_ITS ---
03/17/2024 Rossi Doyle Do Re : ERCP procedure for Jayla Kaiser Dear Vivek This procedure was performed on Sunday, March 17, 2024. My impressions and recommendations are as follows: Impressions : - A single localized biliary stricture was found in the lower third of the main bile duct. The stricture was benign appearing. - The entire biliary tree was moderately dilated, secondary to a stricture. - The patient has had a cholecystectomy. - Choledocholithiasis was found. Complete removal was accomplished by biliary sphincterotomy and balloon extraction. - A biliary sphincterotomy was performed. - The biliary tree was swept. - One stent was removed from the biliary tree. - Cells for cytology obtained in the lower third of the main duct and in the left main hepatic duct. Recommendations : My findings are described in the full procedure note, which is enclosed. If I can be of further assistance, please feel free to contact me at . Sincerely, Raj Miller DO 03/17/2024 12:23:10 PM This report has been signed electronically.
--- NOTE | 2024-03-17 12:23 | OP.ERCP_ITS ---
Patient Name: Jayla Kaiser Procedure Date: 03/17/2024 11:46 AM Date of : 1990 Age: 33 Procedure: ERCP Indications: Acute recurrent pancreatitis, Biliary stent removal Providers: Raj Miller DO Medicines: Monitored Anesthesia Care Patient Profile: This is a 33 year old female. Refer to note in patient chart for documentation of history and physical. Patient has symptoms of acute right upper quadrant abdominal pain and acute epigastric abdominal pain. She is status post laparoscopic cholecystectomy. Complications: No immediate complications. Procedure: Pre-Anesthesia Assessment: - Prior to the procedure, a History and Physical was performed, and patient medications and allergies were reviewed. The patient is competent. The risks and benefits of the procedure and the sedation options and risks were discussed with the patient. All questions were answered and informed consent was obtained. Patient identification and proposed procedure were verified by the physician in the pre-procedure area. Mental Status Examination: alert and oriented. Airway Examination: normal oropharyngeal airway and neck mobility. Respiratory Examination: clear to auscultation. CV Examination: normal. Prophylactic Antibiotics: The patient does not require prophylactic antibiotics. Prior Anticoagulants: The patient has taken no anticoagulant or antiplatelet agents except for NSAID medication. ASA Grade Assessment: II - A patient with mild systemic disease. After reviewing the risks and benefits, the patient was deemed in satisfactory condition to undergo the procedure. The anesthesia plan was to use general anesthesia. Immediately prior to administration of medications, the patient was re-assessed for adequacy to receive sedatives. The heart rate, respiratory rate, oxygen saturations, blood pressure, adequacy of pulmonary ventilation, and response to care were monitored throughout the procedure. The physical status of the patient was re-assessed after the procedure. After obtaining informed consent, the scope was passed under direct vision. Throughout the procedure, the patient's blood pressure, pulse, and oxygen saturations were monitored continuously. The Duodenoscope was introduced through the mouth, and advanced to the duodenum and used to inject contrast into the bile duct and ventral pancreatic duct. The ERCP was accomplished without difficulty. The patient tolerated the procedure well. Scope In: 11:59:12 AM Scope Out: 12:13:43 PM Total Procedure Duration Time 0 hours 14 minutes 31 seconds Findings: The horse trekking guide film was normal. The esophagus was successfully intubated under direct vision. The scope was advanced to a normal major papilla in the descending duodenum without detailed examination of the pharynx, larynx and associated structures, and upper GI tract. The upper GI tract was grossly normal. The bile duct was deeply cannulated with the short-nosed traction sphincterotome. Contrast was injected. I personally interpreted the bile duct images. There was brisk flow of contrast through the ducts. Image quality was adequate. Contrast extended to the entire biliary tree. Opacification of the entire biliary tree except for the cystic duct and gallbladder, entire opacified area and entire biliary tree was successful. The maximum diameter of the ducts was 10 mm. The lower third of the main bile duct contained a single localized stenosis 6 mm in length. The entire opacified area and entire biliary tree were moderately dilated, secondary to a stricture. The largest diameter was 11mm. A cholecystectomy had been performed. A long 0.035 inch Soft Jagwire was passed into the biliary tree. A 5 mm biliary sphincterotomy was made with a traction (standard) sphincterotome using ERBE electrocautery. The sphincterotomy oozed blood. The biliary tree was swept with a 12 mm balloon starting at the bifurcation. Sludge was swept from the duct. All stones were removed. One stent was removed from the biliary tree using a snare and sent for cytology. The stent was found to be partially occluded via the water column test. Cells for cytology were obtained by brushing in the lower third of the main bile duct and the left main hepatic duct. The ventral pancreatic duct was deeply cannulated with the short-nosed traction sphincterotome. Contrast was injected. Opacification of the entire pancreatic ductal system was successful. The maximum diameter of the ducts was 3 mm. The entire opacified area was normal. A long 0.025 inch Jagwire was passed into the ventral pancreatic duct. Impression: - A single localized biliary stricture was found in the lower third of the main bile duct. The stricture was benign appearing. - The entire biliary tree was moderately dilated, secondary to a stricture. - The patient has had a cholecystectomy. - Choledocholithiasis was found. Complete removal was accomplished by biliary sphincterotomy and balloon extraction. - A biliary sphincterotomy was performed. - The biliary tree was swept. - One stent was removed from the biliary tree. - Cells for cytology obtained in the lower third of the main duct and in the left main hepatic duct. Procedure Code(s): --- Professional --- 02684, Endoscopic retrograde cholangiopancreatography (ERCP); with removal of foreign body(s) or stent(s) from biliary/pancreatic duct(s) 77736, Endoscopic retrograde cholangiopancreatography (ERCP); with removal of calculi/debris from biliary/pancreatic duct(s) 79614, Endoscopic retrograde cholangiopancreatography (ERCP); with sphincterotomy/papillotomy 87167, 26, Endoscopic catheterization of the biliary ductal system, radiological supervision and interpretation CPT copyright 2021 [employer]. All rights reserved. The codes documented in this report are preliminary and upon information coder review may be revised to meet current compliance requirements. Raj Miller DO 03/17/2024 12:23:10 PM This report has been signed electronically. Number of Addenda: 0 Note Initiated On: 03/17/2024 11:46 AM
--- NOTE | 2024-03-17 12:30 | PCM.POST.ANE ---
Anesthesia: Postop Eval I Current Vital Signs Temperature: 97.7 F Pulse Rate: 102 Blood Pressure: 103/73 Respiratory Rate: 16 Pulse Ox: 100 Oxygen Delivery Method: Room Air Assessment Airway patent: Yes Spontaneous unlabored respirations: Yes Mental status: Awake and Calm nausea: Yes Vomiting: No Anesthesia Complication: No Fluid Hydration Crystalloid volume administer (ml): 300 Total IV fluid infused: 300 Progress Note Post-operative progress note: pt vomiting at end of procedure, medicated and fluids wide open Anesthesia document: Postop Eval 1 completed: Yes
--- NOTE | 2024-03-17 13:14 | POSTOPAN2_ITS ---
Anesthesia Postop Eval I Sum Postop Eval Completion status Anesthesia document: Postop Eval 1 completed: Yes Anesthesia Postop Eval I Summary Anesthesia Postop Eval I Summary: Anesthesia Postop Eval I: Assessment Summary Airway patent Yes 03/17/24 12:31 TOP [email or web address] Spontaneous unlabored Yes 03/17/24 12:31 TOP [email or web address] respirations Mental status Awake,Calm 03/17/24 12:31 TOP [email or web address] nausea Yes 03/17/24 12:31 TOP [email or web address] Vomiting No 03/17/24 12:31 TOP [email or web address] Anesthesia Postop Eval I: Fluid Summary Crystalloid volume administer 300 03/17/24 12:31 TOP [email or web address] (ml) Colloids volume administered ( ml) Blood Product volume administered (ml) Total IV fluid infused 300 03/17/24 12:31 TOP [email or web address] Anesthesia Postop Eval I: Summary Notes Anesthesia Complication No 03/17/24 12:31 TOP [email or web address] Anesthesia Complication Comment: Post-operative progress note pt vomiting at end 03/17/24 12:31 TOP [email or web address] of procedure, medicated and fluids wide open Anesthesia: Postop Eval II Evaluation Mental status: Awake and Calm Pain Level: 1 Complications Anesthesia Complication: No
--- NOTE | 2024-03-17 13:14 | PCM.POSTANE2 ---
Anesthesia Postop Eval I Sum Postop Eval Completion status Anesthesia document: Postop Eval 1 completed: Yes Anesthesia Postop Eval I Summary Anesthesia Postop Eval I Summary: Anesthesia Postop Eval I: Assessment Summary Airway patent Yes 03/17/24 12:31 [email or web address] Spontaneous unlabored Yes 03/17/24 12:31 [email or web address] respirations Mental status Awake,Calm 03/17/24 12:31 [email or web address] nausea Yes 03/17/24 12:31 [email or web address] Vomiting No 03/17/24 12:31 [email or web address] Anesthesia Postop Eval I: Fluid Summary Crystalloid volume administer 300 03/17/24 12:31 RAP [email or web address] (ml) Colloids volume administered ( ml) Blood Product volume administered (ml) Total IV fluid infused 300 03/17/24 12:31 [email or web address] Anesthesia Postop Eval I: Summary Notes Anesthesia Complication No 03/17/24 12:31 [email or web address] Anesthesia Complication Comment: Post-operative progress note pt vomiting at end 03/17/24 12:31 RAP [email or web address] of procedure, medicated and fluids wide open Anesthesia: Postop Eval II Evaluation Mental status: Awake and Calm Pain Level: 1 nausea: No Vomiting: No Progress Note Post-operative progress note: Patient had nausea vomiting intraoperatively. She was given Zofran Reglan and Phenergan. By time she got to recovery she was much better. Complications Anesthesia Complication: No
--- NOTE | 2024-03-17 17:02 | PCM.PN.HOSP ---
Reason for Visit Reason for Visit: Diagnoses Acute pancreatitis without necrosis or infection, unspecified (03/15/24) Subjective Subjective Patient was seen and examined today, she underwent an ERCP with removal of a stone in the common bile duct. Patient appears comfortable at this time, she is asking for liquids. Objective Data Objective Data Vital Signs: Vital Signs Temp Pulse Resp BP Pulse Ox O2 Del Method 98.5 F 80 18 127/85 H 98 Room Air 03/17/24 15:17 03/17/24 15:17 03/17/24 15:17 03/17/24 15:17 03/17/24 15:17 03/17/24 15:17 Oxygen Delivery Method Room Air Weight: 66.8 kg Body Mass Index (BMI) 26.9 Intake & Output: Intake and Output for Last 24 Hours 03/15/24 03/16/24 03/17/24 23:59 23:59 23:59 Intake Total 1995. / 2296.67 4403.33 / 4603.33 3420.00 / 3420.00 Balance 2295. 4403.33 / 4603.33 3420.00 / 3420.00 Medical Nutrition Assessment Dietitian: Malnutrition Criteria Met Start: 03/16/24 15:02 Freq: Status: Active Protocol: Document 03/16/24 15:02 NACHO (Rec: 03/16/24 15:02 [id number]) Nutrition Malnutrition Evidence of Malnutrition Exists Yes Malnutrition (severe): Acute Illness/Injury Clinical Problem Chronic Disease or Condition Related Malnutrition Etiology severe related to recurrent pancreatitis Signs/Symptoms as evidenced by 11.9lbs(8.1%) weight loss in 1 month and PO intakes <75% of estimated nutrition needs for >1 month Status Active Problem Recommendation Dietitian Recommendations/Changes ADAT to Low Fat diet when medically able to manage medical conditions. RD will order 120mL Ensure Clear 4x daily with medpass to provide supplemental energy. Lab / Micro Data 03/17/24 04:53 03/16/24 06:31 Labs: Laboratory Results - last 24 hr 03/16/24 17:28: Urine Test Negative 03/17/24 04:53: WBC 5.0, RBC 3.68 L, Hgb 10.7 L, Hct 34.4 L, MCV 93.5, MCH 29.1, MCHC 31.1 L, RDW Std Deviation 46.5 H, RDW Coeff of Mercedes 13.5, Plt Count 341, MPV 11.4, Immature Gran % (Auto) 0.200, Neut % (Auto) 52.8, Lymph % (Auto) 35.0, [place] % (Auto) 5.8, Eos % (Auto) 5.6 H, Baso % (Auto) 0.6, Absolute Neuts (auto) 2.6, Absolute Lymphs (auto) 1.75, Nucleated RBC % 0, PT 15.3 H, INR 1.2, APTT 28.7 Radiography Diagnostic Testing: Radiology Impression Endo Retro Cholangiopancreatogram 03/17/24 11:50 IMPRESSION: Unremarkable examination. Electronically Signed: Babar Lopez MD at 13:20 EDT , Physical Exam Narrative alert, oriented x3, no apparent distress, average body habitus and healthy appearing General Appearance: cooperative, well kempt and well developed Orientation / Consciousness: awake, oriented to person, oriented to place and oriented to time HEENT normocephalic, head/scalp atraumatic and moist oral mucous membranes Eyes PERRL, EOMs intact bilaterally and conjunctivae normal Neck supple, no JVD, thyroid normal and no carotid bruits General: trachea midline Resp normal respiratory effort, no retractions, no use of accessory muscles and clear to auscultation bilaterally Auscultation: Negative for rales, rhonchi or wheezes Cardio regular rate, regular rhythm, S1 normal heart sound, S2 normal heart sound, no murmurs, no rub and no gallops GI normal to inspection, nondistended, normoactive bowel sounds and non-distended GI Narrative: Abdomen is diffusely tender to palpation, no rebound abdominal tenderness was noted Extremity no clubbing, cyanosis or edema Skin no rashes or lesions noted General Skin Exam: no breakdown Neuro oriented x3, CN's II-XII intact bilaterally, no focal motor deficits and no sensory deficits noted Sensorium / Orientation: awake and alert Speech: speech normal Psych affect normal Assessment & Plan Assessment/Plan (1) Pancreatitis: (2) Acute pancreatitis: QUALIFIERS: Pancreatitis type: unspecified pancreatitis type Acute pancreatitis complication: unspecified Qualified Code(s): K85.90 - Acute pancreatitis without necrosis or infection, unspecified PLAN: Plan 1. Acute recurrent pancreatitis-secondary to choledocholithiasis, patient is stable at this time #2 acute anemia-etiology unclear, patient's hemoglobin is stable and unchanged Total clinical time spent by myself addressing the patient's medical issues, reviewing all of her data, and collaborating with patient's care team: 25 minutes Charges/Coding Visit Charges Inpatient E&M: 30672 Subs Hosp L1
[2024-03-17] MEDS: oxyCODONE 5 MG Tablet PO (20:37)
[2024-03-17] MEDS: MELATONIN 3 MG TABLET PO (22:28)
[2024-03-18 02:05] VITALS: BP 117/79; PULSE 77; RESP 16; TEMP 36.8; O2SAT 98
[2024-03-18] MEDS: oxyCODONE 5 MG Tablet PO ×2 (02:11→09:47)
[2024-03-18] MEDS: 0.9% Normal Saline (1000mL) 1,000 ML 200 ML IV ×2 (03:41→08:12)
[2024-03-18 04:04] VITALS: BP 124/87; PULSE 88; RESP 18; TEMP 36.6; O2SAT 97
[2024-03-18] MEDS: Morphine 2 MG/ML Syringe IV ×3 (04:04→11:08)
[2024-03-18 05:06] VITALS: BP 162/108; PULSE 100; RESP 22; TEMP 36.6; O2SAT 97
--- NOTE | 2024-03-18 05:12 | EKG12_ITS ---
Test Reason : CP Blood Pressure : / mmHG Vent. Rate : 102 BPM Atrial Rate : 102 BPM P-R Int : 168 ms QRS Dur : 082 ms QT Int : 354 ms P-R-T Axes : 057 042 040 degrees QTc Int : 461 ms Sinus tachycardia Nonspecific T wave abnormality Abnormal ECG Confirmed by JEANETTE NEVAREZ ([id number]), movie editor MCKAYLA SCANLON ([id number]) on 03/21/2024 8:30:41 AM Referred By: Griffin Confirmed By:JEANETTE NEVAREZ
[2024-03-18 05:56] VITALS: BP 123/93; PULSE 92; RESP 20; TEMP 37; O2SAT 97
[2024-03-18 06:00] VITALS: BMI 26.8
[2024-03-18] MEDS: Enoxaparin 40 MG/0.4 ML Syringe SC (09:49)
[2024-03-18] MEDS: Pantoprazole Sodium 40 MG in 0.9% Normal Saline (100mL MB+) 100 ML 330 MG IV (09:50)
[2024-03-18 10:00] VITALS: BP 122/71; PULSE 86; RESP 18; TEMP 37.2; O2SAT 96
--- NOTE | 2024-03-18 11:03 | NURSING ---
attempt to medicate pt for pain, had pulled meds but pt mother insists on recording and speaker phone, I asked pt mother to turn her phone off, and she refuses, this nurse exited room and is awaiting for security to review rules with pt/family
[2024-03-18] MEDS: Ondansetron 4 MG/2 ML Vial IV (11:08)
--- NOTE | 2024-03-18 11:30 | DCINST_ITS ---
Discharge Instructions Diet Discharge Diet: No restrictions Activity Discharge Activity: Return to Normal Activity Weight Bearing Status: Full weight bearing Follow Up Care Test Results: Test results from this visit will be discussed in further detail at your follow- up appointment, if applicable. Discharge Plan Admission Admit Date/Time: 03/15/24 16:26 Primary Reason for Your Visit: Gallstone pancreatitis Attending Provider: Cas Moya Primary Care Provider: Rossi Jones Consulting Providers: Raj Miller; Jessi Ayers Discharge Orders/Prescriptions Prescriptions: New acetaminophen 500 mg Tablet 1,000 mg PO Q8 Qty: 0 0RF oxycodone 5 mg Tablet 5 - 10 mg PO Q4H PRN PRN (Reason: Pain Score 4-10) 5 Days Qty: 30 0RF ursodiol 300 mg capsule 300 mg PO TID Qty: 90 0RF Continued magnesium 200 mg tablet 200 mg PO DAILY potassium chloride 20 mEq Tablet,Er Particles/Crystals 20 meq PO BIDCM 5 Days Qty: 20 0RF prochlorperazine maleate [Compazine] 10 mg tablet 10 mg PO Q8H Lactobacillus acidophilus 500 million cell capsule 500 mmu cells PO BID folic acid 1 mg tablet 1 mg PO DAILY thiamine HCl (vitamin B1) 100 mg tablet 100 mg PO DAILY melatonin 10 mg tablet 10 - 20 mg PO QHS albuterol sulfate 90 mcg/actuation HFA aerosol inhaler 1 - 2 puff inhalation Q6H PRN (Reason: ASTHMA ) omeprazole 40 mg capsule,delayed release(DR/EC) 40 mg PO DAILY 30 Days Qty: 30 0RF Discontinued metoclopramide HCl [Reglan] 10 mg tablet 10 mg PO Q8H 10 Days Qty: 30 0RF sennosides-docusate sodium [Senna Plus] 8.6-50 mg tablet 1 tab-cap PO BID dicyclomine 20 mg tablet 20 mg PO BID PRN (Reason: abdominal pain) Qty: 60 0RF Referrals / Follow Up: Rossi Jones DO [Primary Care Provider] - Raj Miller DO [Med Staff - Active Staff] - See Referral Note (as directed) Disposition Disposition (needs filled in before D/C Order can be placed): Home, Self Care
--- NOTE | 2024-03-18 11:43 | DS.PCM_ITS ---
Providers Date of Admission: 03/15/24 Date of Discharge: 03/18/24 Primary Care Physician: Dr. Rossi Joens, DO Consultations 03/15/24 17:58 Consult: Gastroenterology Routine Consulting Provider: AngelaRaj Reason for Consult: Recurrent pancreatitis/abd pain EMERGENT Consult: No MD Notified: Yes Date Notified: 03/15/24 Time Notified: 18:00 Method of Notification: Text Reason For Visit: RECURRENT ACUTE PANCREATITIS Diagnosis Discharge Diagnosis (1) Pancreatitis: Status: Acute Code(s): K85.90 - Acute pancreatitis without necrosis or infection, unspecified (2) Acute pancreatitis: Status: Acute Code(s): K85.90 - Acute pancreatitis without necrosis or infection, unspecified Qualifiers: Acute pancreatitis complication: unspecified Pancreatitis type: u nspecified pancreatitis type Qualified Code(s): K85.90 - Acute pancreatitis without necrosis or infection, unspecified Plan 1. Acute recurrent pancreatitis-secondary to choledocholithiasis, patient is stable at this time #2 acute anemia-etiology unclear, patient's hemoglobin is stable and unchanged #3 severe chronic protein and caloric malnutrition related to recurrent pancreatitis as evidenced by 11.9 pound weight loss in 1 month and p.o. intake less than 75% of estimated nutritional needs 4 to more than 1 month Total clinical time spent by myself addressing the patient's medical issues, reviewing all of her data, and collaborating with patient's care team: 25 minutes Medications at Discharge Home Medications Lactobacillus acidophilus 500 million cell capsule 500 mmu cells PO BID GUT HEALTH 01/12/24 albuterol sulfate 90 mcg/actuation aerosol inhaler 1 - 2 puff inhalation Q6H PRN ASTHMA 01/12/24 folic acid 1 mg tablet 1 mg PO DAILY SUPPLEMENT 01/12/24 melatonin 10 mg tablet 10 - 20 mg PO QHS SLEEP 01/12/24 thiamine HCl (vitamin B1) 100 mg tablet 100 mg PO DAILY SUPPLEMENT 01/12/24 omeprazole 40 mg capsule,delayed release 40 mg PO DAILY GERD 30 days #30 caps 01/15/24 magnesium 200 mg tablet 200 mg PO DAILY deficient in mag and potassium 01/30/24 potassium chloride 20 mEq tablet,extended release(part/cryst) 20 meq PO BIDCM low potassium 5 days #20 tabs 02/03/24 prochlorperazine maleate 10 mg tablet (Compazine) 10 mg PO Q8H nausea 03/15/24 acetaminophen 500 mg tablet 1,000 mg (2 x 500 mg) PO Q8 #0 tabs 03/18/24 oxycodone 5 mg tablet 5 - 10 mg (1 - 2 x 5 mg) PO Q4H PRN PRN Pain Score 4-10 5 days #30 tabs 03/18/24 ursodiol 300 mg capsule 300 mg PO TID #90 caps 03/18/24 Hospital Course Operations ERCP Summary of Care Provided Minutes Spent on Discharge: 31 Hospital Course: This 33-year-old white female was seen in the emergency room at [facility] with complaints of abdominal pain, she has a history of pancreatitis in the past and had multiple bile duct stones removed when she was in the hospital here on February 01, 2024. A temporary stent was placed at that time and choledocholithiasis was found and the stones were removed. Biliary sphincterotomy was performed. Patient was admitted approximately 2 weeks later to the hospital here for recurrent pancreatitis, patient was treated conservatively and she was discharged home. Patient stated that she then went to [facility] to a hospital there and was hospitalized briefly but no testing was done. Labs done in the emergency room are abnormal for an alkaline phosphatase of 166, lipase was 114, BC and CHEM panel were unremarkable. Patient was admitted to [place] [address], she was given IV analgesics and seen in consultation by gastroenterology. An ERCP was performed and her stent was removed, further stones were removed and patient tolerated the procedure well. On 03/18/2024, patient was seen and examined: On examination she appeared in good health and spirits, she does not appear to be in any distress. Vital signs as documented. Skin warm and dry and without overt rashes. Neck without JVD, thyroid appears normal, trachea is midline, neck is supple. Lungs clear, normal air movement was noted. Heart exam notable for regular rhythm, normal sounds and absence of murmurs, rubs or gallops. Abdomen unremarkable and without evidence of organomegaly, masses, or abdominal aortic enlargement, bowel sounds are present in all 4 quadrants, no abdominal tenderness was noted. Extremities nonedematous, no cyanosis was noted, no clubbing was noted. Neuro: Cranial nerves II through XII are grossly intact, no focal motor deficits were noted, sensation to light touch and pinprick is intact, motor exam 5/5 throughout. Psych: Patient is alert and oriented x3, she does not appear anxious or depressed, she does not appear agitated. Patient was felt to be stable for discharge home on 03/18/2024. Medical Records Data Medical Nutrition Assessment Dietitian: Malnutrition Criteria Met Start: 03/16/24 15:02 Freq: Status: Active Protocol: Document 03/16/24 15:02 LO (Rec: 03/16/24 15:02 [id number]) Nutrition Malnutrition Evidence of Malnutrition Exists Yes Malnutrition (severe): Acute Illness/Injury Clinical Problem Chronic Disease or Condition Related Malnutrition Etiology severe related to recurrent pancreatitis Signs/Symptoms as evidenced by 11.9lbs(8.1%) weight loss in 1 month and PO intakes <75% of estimated nutrition needs for >1 month Status Active Problem Recommendation Dietitian Recommendations/Changes ADAT to Low Fat diet when medically able to manage medical conditions. RD will order 120mL Ensure Clear 4x daily with medpass to provide supplemental energy. Weight / BMI Weight Weight: 66.5 kg Body Mass Index (BMI) 26.8 ABG / Lab / Microbiology Data 03/17/24 04:53 03/16/24 06:31 Radiography Diagnostic Testing: Radiology Impression Endo Retro Cholangiopancreatogram 03/17/24 11:50 IMPRESSION: Unremarkable examination. Electronically Signed: Babar Lopez MD at 13:20 EDT , D/C Instructions Discharge Diet: No restrictions Weight Bearing Status: Full weight bearing Meaningful Use Info Meaningful Use Meaningful Use Diagnoses (Choose all that apply): None applicable Ischemic Stroke Statin Dosing Therapy Reference: STATIN DOSE THERAPY REFERENCE: * Patients > 75 years receive moderate or high dose statin therapy. * Patients 75 years or YOUNGER should receive HIGH intensity statin dose unless contraindicated. You will be required to document reason for non-treatment if statin daily dose does not meet guidelines. HIGH DOSE STATIN THERAPY DAILY Atorvastatin > than or = to 40 mg Rosuvastatin > than or = to 20 mg Amlodipine + Atorvastatin > than or = to 2.5/40 mg Ezetimibe + Simvastatin 10/80 mg Simvastatin 80mg Discharge Plan Admission Admit Date/Time: 03/15/24 16:26 Primary Reason for Your Visit: Gallstone pancreatitis Attending Provider: Cas Moya Primary Care Provider: Rossi Jones Consulting Providers: Raj Miller; Jessi Ayers Discharge Orders/Prescriptions Prescriptions: New acetaminophen 500 mg Tablet 1,000 mg PO Q8 Qty: 0 0RF oxycodone 5 mg Tablet 5 - 10 mg PO Q4H PRN PRN (Reason: Pain Score 4-10) 5 Days Qty: 30 0RF ursodiol 300 mg capsule 300 mg PO TID Qty: 90 0RF Continued magnesium 200 mg tablet 200 mg PO DAILY potassium chloride 20 mEq Tablet,Er Particles/Crystals 20 meq PO BIDCM 5 Days Qty: 20 0RF prochlorperazine maleate [Compazine] 10 mg tablet 10 mg PO Q8H Lactobacillus acidophilus 500 million cell capsule 500 mmu cells PO BID folic acid 1 mg tablet 1 mg PO DAILY thiamine HCl (vitamin B1) 100 mg tablet 100 mg PO DAILY melatonin 10 mg tablet 10 - 20 mg PO QHS albuterol sulfate 90 mcg/actuation HFA aerosol inhaler 1 - 2 puff inhalation Q6H PRN (Reason: ASTHMA ) omeprazole 40 mg capsule,delayed release(DR/EC) 40 mg PO DAILY 30 Days Qty: 30 0RF Discontinued metoclopramide HCl [Reglan] 10 mg tablet 10 mg PO Q8H 10 Days Qty: 30 0RF sennosides-docusate sodium [Senna Plus] 8.6-50 mg tablet 1 tab-cap PO BID dicyclomine 20 mg tablet 20 mg PO BID PRN (Reason: abdominal pain) Qty: 60 0RF Referrals / Follow Up: Rossi Jones DO [Primary Care Provider] - Raj Miller DO [Med Staff - Active Staff] - See Referral Note (as directed) Disposition Disposition (needs filled in before D/C Order can be placed): Home, Self Care Charges/Coding Visit Charges Inpatient E&M: 97531 Disch Hosp >30min
== END 2024-03-18 12:16 | disposition home or self-care (01) ==
LOC: ED 16:09 → MS3 17:05
PROVIDERS: Anesthesiology; Internal Medicine Gastroenterology; Admitting Provider Internal Medicine; Emergency Provider Emergency Medicine; PCP Family Medicine; Visit Provider Internal Medicine
PROC: 0FPB8DZ Removal of Intraluminal Device from Hepatobiliary Duct, Via Natural or Artificial Opening Endoscopic (ICD-10-PCS; CPT 43260; principal; 2024-03-17 11:10)
DX: K80.51 Calculus of bile duct without cholangitis or cholecystitis with obstruction (principal); E43 Unspecified severe protein-calorie malnutrition; D64.9 Anemia, unspecified; F17.210 Nicotine dependence, cigarettes, uncomplicated; K21.9 Gastro-esophageal reflux disease without esophagitis; K58.9 Irritable bowel syndrome, unspecified; Z79.899 Other long term (current) drug therapy; Z90.49 Acquired absence of other specified parts of digestive tract; R07.89 Other chest pain; Z68.26 Body mass index [BMI] 26.0-26.9, adult
CPT/HCPCS: 36415; 74330; 76000; 80048; 80053; 80076; 81001; 81025; 83605; 83690; 83735; 84703; 85025; 85610; 85652; 85730; 86140; 88108; 88305; 88313; 93005; 94668; 99284; 99406; A4216; J2405

== ENCOUNTER → 2024-03-22 | Outpatient (CLI) | payer MEDICAID, SELFPAY ==
--- NOTE | 2024-03-22 19:04 | CT_ITS ---
INDICATION: PANCREATITIS EXAMINATION: CT ABDOMEN WITH IV CONTRAST CT Abdomen W/ Contrast Injection TECHNIQUE: Helically acquired images were obtained of the abdomen following IV contrast. The protocol utilizes one or more of the following dose reduction techniques: automated exposure control, adjustment of mA and/or kV according to patient size,and/or use of iterative reconstruction technique. IV Contrast dosage and agent: 100 mL of Isovue-370 Oral contrast: Yes RADIATION DOSAGE (If Supplied By Facility): CTDIvol = ( 10.60 ) mGy, DLP = ( 436.52 ) mGycm COMPARISON: No relevant prior comparison study available 02/09/2024 FINDINGS: LOWER CHEST: Lung bases are clear. No cardiomegaly or pericardial effusion. LIVER: Normal size and attenuation. Focal fatty infiltration along the falciform. There is a hypoattenuating area at the dome of the liver measuring 4.3 cm. On prior studies, this appears slightly hyper dense compared to the surrounding liver. This may represent a hemangioma. GALLBLADDER AND BILIARY TREE: Cholecystectomy. No intra- or extrahepatic biliary ductal dilation. PANCREAS: No pancreatic ductal dilatation. 1.4 cm cyst at the distal pancreatic body with adjacent additional area of decreased attenuation. These findings are new from the prior study on 01/14/2024, and better defined than on the study from 02/09/2024. This suggests pseudocysts/walled off necrosis. There is also a new fluid collection posteriorly, central to the left adrenal gland tracking along the diaphragm. This measures 3.6 x 1.2 cm. SPLEEN: Normal size without focal cystic or solid mass. ADRENAL GLANDS: No nodules. KIDNEYS AND URETERS: Normal renal size and position. No hydronephrosis. PERITONEUM: No ascites or free air. Fluid collection as detailed above. BOWEL: No evidence of acute appendicitis. No stomach or bowel distension. No focal inflammatory change. LYMPH NODES: Mildly prominent retroperitoneal lymph nodes in the region of the pancreas. VESSELS: Aorta is non-dilated. ABDOMINAL WALL: No discrete abdominal wall hernia. BONES: No lytic or blastic abnormality. CT/Abdomen WITH IV Contrast IMPRESSION: New fluid collection adjacent to the left adrenal gland, suggestive of a pseudocyst. Additionally there are areas of fluid in the pancreatic body/tail which are better defined than on prior suggestive of pseudocyst/walled off necrosis. Nonspecific hypodense lesion at the dome of the liver, which is not definitively seen on previous imaging. This area appears somewhat hyperenhancing on priors, suggestive of possible hemangioma. That said, given the nature of the appearance, and lack of visualization on prior MRI, which was limited, dynamic liver MRI is suggested to evaluate further. Abscess cannot be excluded. Electronically Signed: Mendoza Alexander MD at 6:59 EDT ,
== END | disposition home or self-care (01) ==
PROVIDERS: PCP Family Medicine; Referring Provider Internal Medicine Gastroenterology; Visit Provider Internal Medicine Gastroenterology
DX: K85.90 Acute pancreatitis without necrosis or infection, unspecified (principal)
CPT/HCPCS: 74160; Q9967

== ENCOUNTER 2024-03-26 02:22 | Inpatient (IN) | payer MEDICAID, SELFPAY ==
[2024-03-26] VITALS (9 sets, daily range): BP systolic 94–146; BP diastolic 68–97; PULSE 75–122; RESP 16–18; TEMP 36.4–36.8; O2SAT 95–100; BMI 25.4
--- NOTE | 2024-03-26 03:09 | ED.VIS.GI ---
HPI HPI - GI History of Present Illness Chief Complaint: Abd Pain Informant: patient and family Narrative Narrative: Patient presenting with severe epigastric and left upper quadrant pain radiating up her left chest to her left shoulder. Has a history of choledocholithiasis, stent placed and removed from the bile duct, following with Dr. Miller. Discharged in the hospital last around 2 weeks ago has been having this pain since but has been mild and controlled until today when it gradually became excruciating about 10 or 11 hours ago. Associated with vomiting. Feels similar to when she was diagnosed with pancreatitis because of these ductal stones that have been removed several times. She had an outpatient CT last week that she is still waiting to talk to Dr. Miller about. [facility] Medical History Cannabis use disorder Choledocholithiasis Anemia Tobacco use Pancreatitis IBS (irritable bowel syndrome) Home Medications ?Medication ?Instructions ?Recorded ?Last Taken ?Type Lactobacillus acidophilus 500 500 mmu cells PO BID GUT HEALTH 01/12/24 01/12/24 History million cell capsule albuterol sulfate 90 mcg/actuation 1 - 2 puff inhalation Q6H PRN 01/12/24 Unknown History aerosol inhaler ASTHMA folic acid 1 mg tablet 1 mg PO DAILY SUPPLEMENT 01/12/24 01/12/24 History thiamine HCl (vitamin B1) 100 mg 100 mg PO DAILY SUPPLEMENT 01/12/24 01/12/24 History tablet omeprazole 40 mg capsule,delayed 40 mg PO DAILY GERD 30 days #30 01/15/24 Unknown Rx release caps potassium chloride 20 mEq 20 meq PO BIDCM low potassium 5 02/03/24 Unknown Rx tablet,extended release(part/cryst) days #20 tabs prochlorperazine maleate 10 mg 10 mg PO Q8H nausea 03/15/24 Unknown History tablet (Compazine) acetaminophen 500 mg tablet 1,000 mg (2 x 500 mg) PO Q8 #0 tabs 03/18/24 Unknown Rx ursodiol 300 mg capsule 300 mg PO TID #90 caps 03/18/24 Unknown Rx cyclobenzaprine 5 mg tablet 5 mg PO DAILY #30 tabs 03/24/24 Unknown Rx sennosides 8.6 mg-docusate sodium 1 tab-cap PO BID 03/26/24 Unknown History 50 mg capsule (Senna Plus) Allergy/AdvReac Type Severity Reaction Status Date / Time codeine AdvReac Intermediate Vomiting Verified 03/26/24 02:23 Family History Mother Diabetes Asthma Thyroid disorder IBS (irritable bowel syndrome) Father Diabetes Hypertension Surgical History Previous section S/P ERCP History of cholecystectomy Social History (Updated 03/26/24 @ 04:[address] Prema Kaiser MD) household members: significant other and children Smoking Status: Light Smoker (<10/day) alcohol intake: never details: no alcohol substance use type: marijuana ROS ROS ED Constitutional Constitutional ED: Denies chills or fever(s) Eyes Eyes: Denies change in vision or diplopia ENT ENT ED: Denies rhinorrhea or sore throat Cardiovascular Cardiovascular: Reports chest pain; Denies palpitations Respiratory/Chest Respiratory/Chest: Denies cough or dyspnea Gastrointestinal Gastrointestinal: Reports abdominal pain, nausea and vomiting; Denies diarrhea, hematemesis, hematochezia or melena Genitourinary Genitourinary ED: Denies dysuria or hematuria Musculoskeletal Musculoskeletal: Denies back pain or neck pain Integumentary Denies abscess or rash Neurologic Neurologic: Denies headache(s), paresthesias or weakness Psychiatric Psychiatric: Denies suicidal thoughts EXAM Physical Exam Const Vital Signs: 03/26/24 02:24 03/26/24 03:56 Temperature 98.3 F 98.3 F Temperature Source Oral Pulse Rate 122 H 107 H Respiratory Rate 16 18 Blood Pressure 146/97 H 94/74 Blood Pressure Mean 113 80 Pulse Ox 100 99 Oxygen Delivery Method Room Air Positive well nourished and well developed Constitutional Narrative: Uncomfortable, in pain, no distress General Appearance ED: well developed HEENT Reports moist mucous membranes normocephalic and atraumatic Eyes PERRL and EOMs intact bilaterally Neck full ROM and supple Resp normal respiratory effort and clear to auscultation bilaterally Resp Narrative: Equal breath sounds present bilaterally. Cardio regular rate, regular rhythm and no murmurs Rate: tachycardic GI non-distended GI Narrative: Very tender epigastrium left upper quadrant nontender lateral aspect of the right upper quadrant and lower abdomen. Some voluntary guarding of the epigastrium. Auscultation: normoactive bowel sounds Palpation: soft Back/Spine no CVA tenderness General Back: other FROM Extremity normal to inspection General Extremety ED: Negative for edema, pulses abnormal or tenderness General Extremity: Negative for edema or pulses abnormal Neuro oriented x3, CN's II-XII intact bilaterally and no sensory deficits noted Sensorium / Orientation: awake and alert Motor Exam: strength 5/5 throughout Psych Mood & Affect: anxious and tearful Skin no rashes or lesions noted and no wounds MDM MDM MDM Narrative Medical decision making narrative: Obtained labs in addition to treating the patient's pain and nausea and given her IV fluids and bowel rest. Her lipase is high consistent with acute pancreatitis. She does not have a leukocytosis or hyperbilirubinemia to suggest cholangitis, choledocholithiasis, biliary obstruction. I reviewed her CT results from last week. She does have a small pseudocyst at 1.4 cm, it would not be amenable to drainage at this time. There also is a hypoattenuating area at the dome of the liver measuring 4.3 cm. It appears this is more likely to be a hemangioma than an abscess although radiology had noted he is not able to rule out the latter. Without a leukocytosis or signs of a leftward shift, it is less likely to be an abscess at this time. They are recommending dynamic liver MRI to evaluate it further. I do not think that needs to be done emergently but since she has acute pancreatitis, perhaps can be done while in the hospital. Dr. Miller is not available at the time of the patient's encounter. Discussed with hospitalist. History & Record Review Additional record(s) reviewed:: Prior outpatient record (CT A/P: New fluid collection adjacent to left adrenal gland suggestive of pseudocyst, areas of fluid in pancreatic body/tail suggestive of pseudocyst/walled off necrosis, and nonspecific hypodense lesion dome of liver-hemangioma not able to rule out abscess.) Lab Data Attestation: I reviewed the patient's lab results. Labs: Laboratory Results - last 24 hr 03/26/24 03/26/24 02:52 03:25 WBC 9.7 RBC 4.42 Hgb 12.9 Hct 40.3 MCV 91.2 MCH 29.2 MCHC 32.0 RDW Std Deviation 47.6 H RDW Coeff of Mercedes 14.1 Plt Count 430 MPV 12.4 H Immature Gran % (Auto) 0.600 Neut % (Auto) 61.0 Lymph % (Auto) 25.1 Early % (Auto) 7.7 Eos % (Auto) 5.0 Baso % (Auto) 0.6 Absolute Neuts (auto) 5.9 Absolute Lymphs (auto) 2.44 Nucleated RBC % 0 Sodium 136 Potassium 4.1 Chloride 103 Carbon Dioxide 26.0 Anion Gap 7 BUN 9 Creatinine 0.51 L Est GFR (MDRD) Af Amer 181 Est GFR (MDRD) Non-Af 149 BUN/Creatinine Ratio 17.8 Glucose 119 H Lactic Acid 1.6 Calcium 9.0 Phosphorus 4.2 Magnesium 1.8 Total Bilirubin 0.30 AST 13 L ALT 10 L Alkaline Phosphatase 193 H Total Protein 7.3 Albumin 2.5 L Globulin 4.8 H Albumin/Globulin Ratio 0.5 L Lipase > 250 H Procalcitonin 0.38 H Management Discussion w/another healthcare provider: Hospitalist Discharge Plan Triage Chief Complaint: Abd Pain ED Provider: Prince Ennis Dx/Rx/DC Orders Clinical Impression: Acute pancreatitis Primary Care Provider: Rossi Jones Disposition Disposition: Acute Care [facility]
[2024-03-26] MEDS: 0.9% Normal Saline (1000mL) 1,000 ML 125 ML IV (03:16)
[2024-03-26] MEDS: Ondansetron 4 MG/2 ML Vial IV (03:16)
[2024-03-26] MEDS: HYDROmorphone 1 MG/ML Syringe 2 MG IV (03:16)
[2024-03-26 03:17] LABS: Absolute Lymphocyte Count 2.44 X10^3/uL (0.83-4.51); Absolute Neutrophil Count 5.9 X10^3/uL (2.0-7.7); Basophil# 0.06 X10^3/uL; Basophil% 0.6 % (0-1); Eosinophil# 0.49 X10^3/uL; Hematocrit 40.3 % (37-47); Hemoglobin 12.9 g/dL (12.0-15.0); Lymphocyte # 2.44 X10^3/ul (0.83-4.51); Lymphocyte % 25.1 % (19-41); Mean Corpuscular Hgb 29.2 pg (27.0-32.0); Mean Corpuscular Volume 91.2 fL (81-99); Mean Platelet Vol. 12.4 fl (6.2-12.0); Monocyte# 0.75 X10^3/uL; Monocyte% 7.7 % (0-10); NRBC Flagged by Analyzer 0 % (0-5); Neutrophil # 5.91 X10^3/uL (2.7-7.7); Platelet Count 430 K/mm3 (150-450); RBC Distribution Width CV 14.1 % (11.6-14.6); RBC Distribution Width SD 47.6 fl (35.1-43.9); Red Blood Count 4.42 M/mm3 (4.2-5.4); White Blood Count 9.7 K/mm3 (4.4-11.0)
[2024-03-26 03:50] LABS: ALB/GLOB Ratio 0.5 RATIO (0.9-2.4); AST(SGOT) 13 U/L (15-37); Alanine Aminotransfer ALT/SGPT 10 U/L (13-56); Albumin, Serum 2.5 g/dL (3.2-5.0); Alkaline Phosphatase 193 U/L (45-117); Anion Gap 7 (5-15); BUN 9 mg/dL (7-18); BUN/Creat Ratio 17.8 RATIO (10-20); Chloride 103 mmol/L (98-107); Creatinine, Serum 0.51 mg/dL (0.55-1.02); EST Glomerular Filtration Rate 149 mL/min (>60); Est Glom Filt Rate - Afr Amer 181 mL/min (>60); Globulin 4.8 g/dL (2.2-4.2); Glucose 119 mg/dL (74-106); Lipase > 250 U/L (13-75); Potassium 4.1 mmol/L (3.5-5.1); Protein, Total 7.3 g/dL (6.4-8.2); Sodium Level 136 mmol/L (136-145)
--- NOTE | 2024-03-26 03:57 | HP.PCM.HOS_ITS ---
HPI - General General Date of Admission: 03/26/24 Date of Service: 03/26/24 Chief Complaint: Abdominal pain, N/V. HPI Narrative The patient is a 33 y/o F w/ PMHx: Recurrent pancreatitis s/p cholecystectomy w/ choledocholithiasis, IBS, GERD, Chronic anemia, Tobacco use, Cannabis use, discharged 03/18/24 following admission for recurrent acute pancreatitis secondary to choledocholithiasis with acute anemia of unclear etiology with recurrent ERCP performed 03/17/24 with noted single localized biliary stricture in the lower third of the main bile duct benign-appearing, choledocholithiasis found with complete removal accomplished by biliary sphincterotomy and balloon extraction with 1 stent removed from the biliary tree with follow-up outpatient 03/22/24 CT abdomen with IV contrast with noted new fluid collection adjacent to the left adrenal gland suggestive of a pseudocyst additionally an area of fluid in the pancreatic body/tail and better defined than prior suggestive of pseudocyst versus walled off necrosis, nonspecific hypodense lesion at the dome of the liver not definitively seen prior noted on previous to appear somewhat hyperenhancing suggestive of possibly hemangioma however abscess cannot be excluded with MRI recommended who now represents to the [facility] ED on 03/26/24 with severe epigastric and left upper quadrant pain radiating up her left chest to her left shoulder with mild ongoing pain since her recent discharge however more excruciating over the last 12 hours with associated nausea and emesis prompting ED evaluation. She notes ongoing loose stools which have been a chronic issue but now she reports occasionally watery and then soft pencil like. She notes ongoing flatus but reports feeling as though she has to bear down more to release gas. She currently rates her pain 4/10 in severity following ED patient regimen and prior to this noted it was 8-9/10 in severity, aching and sharp, worse with palpation. Workup in the ED included T98.3, rate 122, BP 146/97, respiratory rate 16, 100% on room air, CBC with WBC 9.7, Hgb 12.9, MCV 91.2, platelet 430 without shift, CMP with BUN/creatinine 9/0.51, glucose 119, AST/LT 13/10, alk phos 193, lipase greater than 250, lactic acid 1.6. In the ED patient ministered maintenance IV fluids, Zofran 4 mg IV x 1, Dilaudid 2 mg IV x 1. PFSH Medical History Cannabis use disorder Choledocholithiasis Anemia Tobacco use Pancreatitis IBS (irritable bowel syndrome) Home Medications ?Medication ?Instructions ?Recorded ?Last Taken ?Type Lactobacillus acidophilus 500 500 mmu cells PO BID GUT HEALTH 01/12/24 01/12/24 History million cell capsule albuterol sulfate 90 mcg/actuation 1 - 2 puff inhalation Q6H PRN 01/12/24 Unknown History aerosol inhaler ASTHMA folic acid 1 mg tablet 1 mg PO DAILY SUPPLEMENT 01/12/24 01/12/24 History thiamine HCl (vitamin B1) 100 mg 100 mg PO DAILY SUPPLEMENT 01/12/24 01/12/24 History tablet omeprazole 40 mg capsule,delayed 40 mg PO DAILY GERD 30 days #30 01/15/24 Unknown Rx release caps potassium chloride 20 mEq 20 meq PO BIDCM low potassium 5 02/03/24 Unknown Rx tablet,extended release(part/cryst) days #20 tabs prochlorperazine maleate 10 mg 10 mg PO Q8H nausea 03/15/24 Unknown History tablet (Compazine) acetaminophen 500 mg tablet 1,000 mg (2 x 500 mg) PO Q8 #0 tabs 03/18/24 Unknown Rx ursodiol 300 mg capsule 300 mg PO TID #90 caps 03/18/24 Unknown Rx cyclobenzaprine 5 mg tablet 5 mg PO DAILY #30 tabs 03/24/24 Unknown Rx sennosides 8.6 mg-docusate sodium 1 tab-cap PO BID 03/26/24 Unknown History 50 mg capsule (Senna Plus) Allergy/AdvReac Type Severity Reaction Status Date / Time codeine AdvReac Intermediate Vomiting Verified 03/26/24 02:23 Family History Mother Diabetes Asthma Thyroid disorder IBS (irritable bowel syndrome) Father Diabetes Hypertension Surgical History Previous section S/P ERCP History of cholecystectomy Social History (Updated 03/26/24 @ 04:[address] Prema Kaiser MD) household members: significant other and children Smoking Status: Current every day smoker tobacco type: cigarettes alcohol intake: never details: no alcohol substance use type: marijuana ROS ROS Narrative Admission Review of Systems: CONSTITUTIONAL: No weight loss, fever, chills, + weakness or fatigue. HEENT: Eyes: No visual loss, blurred vision, double vision or yellow sclerae. Ears, Nose, Throat: No hearing loss, sneezing, congestion, runny nose or sore throat. SKIN: No rash or itching, lesions, wounds. CARDIOVASCULAR: + Atypical chest pain. No palpitations, edema, orthopnea, syncopal events. RESPIRATORY: No shortness of breath, cough or sputum, wheezing, hemoptysis. GASTROINTESTINAL: + anorexia, nausea, vomiting, abdominal pain, diarrhea. No melena, BRBPR. GENITOURINARY: No dysuria, frequency, urgency or retention. NEUROLOGICAL: No headache, dizziness, syncope, paralysis, ataxia, numbness or tingling in the extremities, focal weakness, change in bowel or bladder control, seizure. MUSCULOSKELETAL: No muscle, back pain, joint pain or stiffness. HEMATOLOGIC: No anemia, bleeding or bruising. LYMPHATICS: No enlarged nodes. No history of splenectomy. PSYCHIATRIC: No history of depression or anxiety. ENDOCRINOLOGIC: No reports of sweating, cold or heat intolerance. No polyuria or polydipsia. ALLERGIES: No history of asthma, hives, eczema or rhinitis. Vital Signs Vital Signs Vital Signs: 03/26/24 02:24 Temperature 98.3 F Temperature Source Oral Pulse Rate 122 H Respiratory Rate 16 Blood Pressure 146/97 H Blood Pressure Mean 113 Pulse Ox 100 Oxygen Delivery Method Room Air Physical Exam Narrative Physical Examination: General: Awake, alert, oriented x 3 and cooperative, seated upright in the ED bed, fatigued, uncomfortable appearing. Skin: Normal color, normal turgor, no icterus, no cyanosis. HEENT: AT/NC, EOMI, PERRLA, dry MM, no carotid bruits or JVD noted. Lungs: CTA bilaterally, moderate effort, mild decrease BL bases, no rales, ronchi or wheezing. Heart: Tachycardic with regular rhythm; no gallop, rub audible. Abdomen: Soft, significant tenderness to palpation in the epigastrium as well as bilateral upper quadrants with guarding, hypoactive BS, no obvious distention, difficulty assessing HSM given pain with palpation. Extremities: No cyanosis, clubbing, or edema. Neurological: Patient awake, alert, oriented as noted, cognitive function intact; pupils equally reactive to light and accommodation, cranial nerves grossly normal, moving all 4 extremities, no focal deficits, strength moderately to severely globally decreased secondary to acute pain complaints/presentation Psychiatric: Affect appears fatigued, uncomfortable, no acute evidence of depressive or anxiety feelings. Results Lab / Micro Data 03/26/24 02:52 03/26/24 02:52 Labs: Laboratory Results - last 24 hr 03/26/24 02:52: WBC 9.7, RBC 4.42, Hgb 12.9, Hct 40.3, MCV 91.2, MCH 29.2, MCHC 32.0, RDW Std Deviation 47.6 H, RDW Coeff of Mercedes 14.1, Plt Count 430, MPV 12.4 H , Immature Gran % (Auto) 0.600, Neut % (Auto) 61.0, Lymph % (Auto) 25.1, [place] % (Auto) 7.7, Eos % (Auto) 5.0, Baso % (Auto) 0.6, Absolute Neuts (auto) 5.9, Absolute Lymphs (auto) 2.44, Nucleated RBC % 0, Sodium 136, Potassium 4.1, Chloride 103, Carbon Dioxide 26.0, Anion Gap 7, BUN 9, Creatinine 0.51 L, Est GFR (MDRD) Af Amer 181, Est GFR (MDRD) Non-Af 149, BUN/Creatinine Ratio 17.8, G lucose 119 H, Calcium 9.0, Total Bilirubin 0.30, AST 13 L, ALT 10 L, Alkaline Phosphatase 193 H, Total Protein 7.3, Albumin 2.5 L, Globulin 4.8 H, A lbumin/Globulin Ratio 0.5 L, Lipase > 250 H Assessment & Plan Assessment/Plan (1) Acute pancreatitis: PLAN: Plan The patient is a 33 y/o F w/ PMHx: Recurrent pancreatitis s/p cholecystectomy w/ choledocholithiasis, IBS, GERD, Chronic anemia, Tobacco use, Cannabis use, discharged 03/18/24 following admission for recurrent acute pancreatitis secondary to choledocholithiasis with recurrent ERCP performed 03/17/24 with follow-up outpatient 03/22/24 CT with noted new fluid collection adjacent to the left adrenal gland suggestive of a pseudocyst and region in the pancreatic body/tail suggestive of pseudocyst versus walled off necrosis who now represents to the [facility] ED on 03/26/24 with severe epigastric and left upper quadrant pain radiating up her left chest to her left shoulder with mild ongoing pain since her recent discharge however more excruciating over the last 12 hours with associated nausea and emesis prompting ED evaluation. #1. Acute recurrent pancreatitis w/ abdominal pain, N/V with recent recurrent choledocholithiasis status post removal with biliary sphincterotomy and balloon extraction with 1 stent removed with recent CT concerning for pancreatic pseudocysts versus potentially walled off necrosis as well as nonspecific hypodense lesion at the dome of the liver possibly hemangioma, low suspicion for abscess, suspected more likely pseudocyst: Given the CT without markedly sized pseudocysts, not drainable at this time and low suspicion for infection/abscess, will admit to [facility], maintain on IVFs, NPO, IV PPI, IV/po pain control, trend lipase, CMP. Will request MRCP to further assess both the pancreas and the liver, procalcitonin requested. Will consult Dr. Miller gastroenterology. #2. Elevated BP without hypertensive diagnosis: Presentation BP elevated in the ED, likely pain related with acute presentation #1, continue monitor and add regimen if appropriate, as needed IV hydralazine in the interim. #3. Chronic normocytic anemia: Admission hemoglobin 12.9, MCV 91.2, suspect dehydrated presentation, most recent hemoglobin prior to this 03/17/24 10.7 which appeared to be stable since January 2024, will continue to trend CBC. #4. Tobacco Abuse: Encouraged cessation, inpatient consultation per RT, NR if desired. #5. GERD: Will maintain on IV PPI as noted. #6. DVT prophylaxis: SCDs, defer chemoprophylaxis in case of recurrent GI intervention needs. Charges/Coding Visit Charges Inpatient E&M: 16840 Init Hosp L3
[2024-03-26 04:11] LABS: Lactic Acid 1.6 mmol/L (0.4-1.9)
[2024-03-26 04:24] LABS: Magnesium 1.8 mg/dL (1.6-2.6); Phosphorus 4.2 mg/dL (2.5-4.9)
[2024-03-26 04:35] LABS: Procalcitonin 0.38 ng/mL (0.00-0.09)
[2024-03-26] MEDS: 0.9% Saline Lock 10 ML Syringe IV (05:22)
[2024-03-26] MEDS: 0.9% Normal Saline (1000mL) 1,000 ML 150 ML IV ×4 (05:22→23:15)
[2024-03-26] MEDS: Ketorolac 15 MG/ML Vial IV ×3 (05:22→22:36)
[2024-03-26] MEDS: Ursodiol 250 MG Tablet PO ×3 (06:08→22:37)
[2024-03-26] MEDS: HYDROmorphone 1 MG/ML Syringe IV ×4 (06:50→22:44)
--- NOTE | 2024-03-26 07:40 | PCM.PN.HOSP ---
Reason for Visit Reason for Visit: Diagnoses Acute pancreatitis without necrosis or infection, unspecified (03/26/24) Objective Data Objective Data Vital Signs: Vital Signs Temp Pulse Resp BP Pulse Ox O2 Del Method 97.6 F L 104 H 18 98/83 H 95 Room Air 03/26/24 04:41 03/26/24 04:41 03/26/24 04:41 03/26/24 04:41 03/26/24 05:20 03/26/24 05:20 Oxygen Delivery Method Room Air Weight: 63.1 kg Body Mass Index (BMI) 25.4 Intake & Output: Intake and Output for Last 24 Hours 03/24/24 03/25/24 03/26/24 23:59 23:59 23:59 Intake Total 270.83 / 270.83 Balance 270.83 / 270.83 Lab / Micro Data 03/26/24 02:52 03/26/24 02:52 Labs: Laboratory Results - last 24 hr 03/26/24 02:52: WBC 9.7, RBC 4.42, Hgb 12.9, Hct 40.3, MCV 91.2, MCH 29.2, MCHC 32.0, RDW Std Deviation 47.6 H, RDW Coeff of Mercedes 14.1, Plt Count 430, MPV 12.4 H, Immature Gran % (Auto) 0.600, Neut % (Auto) 61.0, Lymph % (Auto) 25.1, [place] % (Auto) 7.7, Eos % (Auto) 5.0, Baso % (Auto) 0.6, Absolute Neuts (auto) 5.9, Absolute Lymphs (auto) 2.44, Nucleated RBC % 0, Sodium 136, Potassium 4.1, Chloride 103, Carbon Dioxide 26.0, Anion Gap 7, BUN 9, Creatinine 0.51 L, Est GFR (MDRD) Af Amer 181, Est GFR (MDRD) Non-Af 149, BUN/Creatinine Ratio 17.8, Glucose 119 H, Calcium 9.0, Phosphorus 4.2, Magnesium 1.8, Total Bilirubin 0.30, AST 13 L, ALT 10 L, Alkaline Phosphatase 193 H, Total Protein 7.3, Albumin 2.5 L, Globulin 4.8 H, Albumin/Globulin Ratio 0.5 L, Lipase > 250 H, Procalcitonin 0.38 H 03/26/24 03:25: Lactic Acid 1.6 Physical Exam Narrative Physical Examination: General: Awake, alert, oriented x 3 and cooperative, seated upright in the ED bed, fatigued, uncomfortable appearing. Skin: Normal color, normal turgor, no icterus, no cyanosis. HEENT: AT/NC, EOMI, PERRLA, dry MM, no carotid bruits or JVD noted. Lungs: CTA bilaterally, moderate effort, mild decrease BL bases, no rales, ronchi or wheezing. Heart: Tachycardic with regular rhythm; no gallop, rub audible. Abdomen: Soft, significant tenderness to palpation in the epigastrium as well as bilateral upper quadrants with guarding, hypoactive BS, no obvious distention, difficulty assessing HSM given pain with palpation. Extremities: No cyanosis, clubbing, or edema. Neurological: Patient awake, alert, oriented as noted, cognitive function intact; pupils equally reactive to light and accommodation, cranial nerves grossly normal, moving all 4 extremities, no focal deficits, strength moderately to severely globally decreased secondary to acute pain complaints/presentation Psychiatric: Affect appears fatigued, uncomfortable, no acute evidence of depressive or anxiety feelings. Assessment & Plan Assessment/Plan (1) Acute pancreatitis: PLAN: Plan Patient is a 33-year-old lady with multiple admission for pancreatitis presented with abdominal pain 1. Abdominal pain secondary to Acute pancreatitis secondary to Choledocholithiasis ERCP on 03/17/2024 did show A single localized biliary stricture was found in the lower third of the main bile duct.Choledocholithiasis was found. Complete removal was accomplished by biliary sphincterotomy and balloon extraction. One stent was removed from the biliary tree. CT of the abdomen obtained on admission revealed new fluid collection adjacent to the left adrenal gland, suggestive of a pseudocyst. Additionally there are areas of fluid in the pancreatic body/tail which are better defined than on prior suggestive of pseudocyst/walled off necrosis. Nonspecific hypodense lesion at the dome of the liver, which is not definitively seen on previous imaging. This area appears somewhat hyperenhancing on priors, suggestive of possible hemangioma. That said, given the nature of the appearance, and lack of visualization on prior MRI, which was limited, dynamic liver MRI is suggested to evaluate further. Abscess cannot be excluded. Abdominal MRI was ordered on admission. Patient started on broad-spectrum antibiotic therapy with meropenem pending results of the MRI of the abdomen 2. Elevated blood pressure ? Patient also known hypertensive possibly reactive to her pain will monitor 3. GERD ? Patient is on PPI did continue 4. Mild intermittent asthma ? Aerosol treatment as needed 5. Tobacco dependence ? Counseled on cessation, offered nicotine patch for tobacco cravings 6. DVT prophylaxis ? Low risk to encourage ambulation Time spent in the patient's overall evaluation,decision-making process, review of diagnostic data, adjustment of management, discussion with other providers, nursing nursing and ancillary staff involved in patient's care documentation, 38 Minutes Charges/Coding Visit Charges Inpatient E&M: 49792 Subs Hosp L2
[2024-03-26] MEDS: Folic Acid 1 MG Tablet PO (08:27)
[2024-03-26] MEDS: Acetaminophen 325 MG Tablet 650 MG PO ×2 (08:27→14:09)
[2024-03-26] MEDS: Thiamine Hydrochloride 100 MG Tablet PO (08:27)
[2024-03-26] MEDS: cycloBENZAPRine HCl 5 MG TABLET PO (08:27)
[2024-03-26] MEDS: oxyCODONE 5 MG Tablet PO ×2 (08:27→14:09)
[2024-03-26] MEDS: Pantoprazole Sodium 40 MG in 0.9% Normal Saline (100mL MB+) 100 ML 330 MG IV ×2 (10:13→22:36)
[2024-03-26] MEDS: Meropenem 1 GM in 0.9% Normal Saline (100mL MB+) 100 ML IV ×2 (14:02→23:12)
[2024-03-26] MEDS: oxyCODONE 5 MG Tablet 10 MG PO (19:45)
[2024-03-27] VITALS (9 sets, daily range): BP systolic 110–123; BP diastolic 40–90; PULSE 77–113; RESP 16–19; TEMP 36.3–36.6; O2SAT 96–99; BMI 25.4
[2024-03-27] MEDS: HYDROmorphone 1 MG/ML Syringe IV ×4 (03:23→20:51)
[2024-03-27] MEDS: 0.9% Saline Lock 10 ML Syringe IV (03:24)
[2024-03-27] MEDS: Meropenem 1 GM in 0.9% Normal Saline (100mL MB+) 100 ML IV ×3 (06:29→22:49)
[2024-03-27] MEDS: 0.9% Normal Saline (1000mL) 1,000 ML 150 ML IV ×3 (06:29→22:56)
[2024-03-27] MEDS: Ketorolac 15 MG/ML Vial IV ×2 (06:30→14:35)
[2024-03-27] MEDS: Ursodiol 250 MG Tablet PO ×3 (06:39→22:49)
[2024-03-27] MEDS: oxyCODONE 5 MG Tablet 10 MG PO ×3 (07:05→22:49)
[2024-03-27 07:07] LABS: Absolute Lymphocyte Count 2.07 X10^3/uL (0.83-4.51); Absolute Neutrophil Count 3.3 X10^3/uL (2.0-7.7); Basophil# 0.03 X10^3/uL; Basophil% 0.5 % (0-1); Eosinophil# 0.37 X10^3/uL; Eosinophils% 5.9 % (0-5); Hematocrit 31.8 % (37-47); Hemoglobin 10.2 g/dL (12.0-15.0); Lymphocyte # 2.07 X10^3/ul (0.83-4.51); Lymphocyte % 32.8 % (19-41); Mean Corp Hgb Conc 32.1 g/dL (32-36); Mean Corpuscular Hgb 29.6 pg (27.0-32.0); Mean Corpuscular Volume 92.2 fL (81-99); Mean Platelet Vol. 12.1 fl (6.2-12.0); Monocyte# 0.48 X10^3/uL; Monocyte% 7.6 % (0-10); NRBC Flagged by Analyzer 0 % (0-5); Neutrophil # 3.32 X10^3/uL (2.7-7.7); Neutrophil % 52.6 % (47-70); Platelet Count 260 K/mm3 (150-450); RBC Distribution Width CV 14.1 % (11.6-14.6); RBC Distribution Width SD 48.6 fl (35.1-43.9); Red Blood Count 3.45 M/mm3 (4.2-5.4); White Blood Count 6.3 K/mm3 (4.4-11.0)
[2024-03-27 07:40] LABS: Phosphorus 3.8 mg/dL (2.5-4.9)
[2024-03-27 07:43] LABS: ALB/GLOB Ratio 0.5 RATIO (0.9-2.4); AST(SGOT) 16 U/L (15-37); Alanine Aminotransfer ALT/SGPT 9 U/L (13-56); Albumin, Serum 1.7 g/dL (3.2-5.0); Alkaline Phosphatase 144 U/L (45-117); Anion Gap 8 (5-15); BUN 3 mg/dL (7-18); BUN/Creat Ratio 11.4 RATIO (10-20); Bilirubin, Direct 0.12 mg/dL (0.00-0.30); Calcium,Total 7.9 mg/dL (8.5-10.1); Chloride 110 mmol/L (98-107); Creatinine, Serum 0.26 mg/dL (0.55-1.02); EST Glomerular Filtration Rate 317 mL/min (>60); Est Glom Filt Rate - Afr Amer 383 mL/min (>60); Estimated Creatinine Clearance 271.38 ml/min; Globulin 3.5 g/dL (2.2-4.2); Glucose 87 mg/dL (74-106); Lipase 66 U/L (13-75); Magnesium 1.7 mg/dL (1.6-2.6); Potassium 3.9 mmol/L (3.5-5.1); Protein, Total 5.2 g/dL (6.4-8.2); Sodium Level 140 mmol/L (136-145)
--- NOTE | 2024-03-27 08:04 | NURSING ---
Gave report to Kirstin GUADARRAMA
[2024-03-27] MEDS: LORazepam 2 MG/ML Syringe IV (08:22)
--- NOTE | 2024-03-27 08:50 | NURSING ---
Pt ambulated to mri bed with standby assist. vitals noted.
--- NOTE | 2024-03-27 08:59 | NURSING ---
Pt tolerating MRI.
--- NOTE | 2024-03-27 09:20 | MRI_ITS ---
STUDY: MRI ABDOMEN WITHOUT CONTRAST REASON FOR EXAM: Female, 33 years old. Pancreatitis, ? Liver hemangioma, ? Pseudocysts -- Focus pancreas and liver TECHNIQUE: Standardized fat and water weighted pulse sequences were obtained in all 3 orthogonal planes. COMPARISON: MRCP/MRI of the abdomen dated January 12, 2024. CT of abdomen and pelvis dated February 09, 2024 FINDINGS: Small to moderate-sized bilateral pleural effusions are present, left greater than right. Liver: Diffuse fatty infiltration. [place] of focal fatty infiltration and falciform ligament attenuation in the medial and anterior aspect of the right lobe of the liver unchanged from multiple prior studies and does not represent acute or malignant pathology and does not require any additional imaging. 2.43 x 2.30 cm right parenchymal indistinct lesion in the dome of the right lobe of the liver corresponds to the lesion seen on the recent CT that demonstrated septations and peripheral enhancement, however no contrast was administered on this study and the lesion cannot be adequately evaluated without. Mild postcholecystectomy intrahepatic biliary ductal dilatation unchanged from the prior studies. There are surgical clips in the gallbladder fossa consistent with a prior cholecystectomy. Normal spleen. Pancreas: Redemonstration of a ductal cyst in the distal body of the pancreas measuring 1.37 cm with benign features. Mild ductal dilatation is present throughout the pancreas. A second parenchymal cyst is present at the undersurface of the tail of the pancreas measuring 1.04 cm. No solid mass is seen. No acute inflammation is seen around the pancreas on this study. Normal bilateral adrenal glands. Normal right kidney. Normal left kidney. Normal visualized stomach. Normal small intestine. Normal colon. Normal abdominal aorta. Normal inferior vena cava. Normal retroperitoneum. Normal abdominal wall. There are diffuse degenerative changes of the visualized lumbar spine. IMPRESSION: * 2.43 x 2.30 cm right parenchymal indistinct lesion in the dome of the right lobe of the liver corresponds to the lesion seen on the recent CT that demonstrated septations and peripheral enhancement, however no contrast was administered on this study and the lesion cannot be adequately evaluated without. STUDY: MR CHOLANGIOPANCREATOGRAPHY (MRCP) REASON FOR EXAM: Female, 33 years old. Pancreatitis, ? Liver hemangioma, ? Pseudocysts -- Focus pancreas and liver TECHNIQUE: Standard MRCP technique was utilized. 3-D reconstructions were included. COMPARISON: None. FINDINGS: Gall Bladder: Gall bladder is surgically absent. Cystic duct: Cystic duct was not well visualized. Intrahepatic ducts: Mild postcholecystectomy dilatation of the intrahepatic ducts. Common hepatic duct: Normal with no demonstrated fixed filling defect, dilation or stricture. Common bile duct: Normal with no demonstrated fixed filling defect, dilation or stricture. Pancreatic duct: Mild diffuse dilatation of the pancreatic duct. MRI/MRCP Abdomen without Contrast IMPRESSION: Mild postcholecystectomy dilatation of the intrahepatic ducts. Electronically Signed: Saad Bell MD at 12:50 EDT ,
--- NOTE | 2024-03-27 09:35 | NURSING ---
Pt returned to [facility], Kirstin GUADARRAMA notified.
[2024-03-27] MEDS: Thiamine Hydrochloride 100 MG Tablet PO (09:43)
[2024-03-27] MEDS: Folic Acid 1 MG Tablet PO (09:43)
[2024-03-27] MEDS: cycloBENZAPRine HCl 5 MG TABLET PO (09:44)
[2024-03-27] MEDS: Pantoprazole Sodium 40 MG in 0.9% Normal Saline (100mL MB+) 100 ML 330 MG IV ×2 (09:45→21:01)
--- NOTE | 2024-03-27 13:15 | CASEMGMT ---
CHIARA LEYVA chart review: Patient was 03/15-03/18/24 for recurrent acute pancreatitis. See readmission note from 03/16/24. Patient was discharged to home with follow-up plans in place. Patient returned to [facility] ED on 03/26/24 for increased abdominal pain and vomiting. Patient was admitted for Acute Pancreatitis, GI, consult, and MRCP which showed mild postcholecystectomy dilatation of the intrahepatic ducts. RN AUTUMN in to discuss readmission and discharge needs. Patient currently eating a bologna sandwich. Patient states she was having phone conversations with PCP and was to see PCP Wednesday but was having too much pain and spoke on the phone. Patient had outpatient CT completed on 03/22/24. Patient is to have follow up with GI Dr. Miller on 03/29/24. CHIARA LEYVA inquired if she is following dietary recommendations for pancreatitis, patient states she is just trying to eat something and Ensure is too expensive. Patient denied needs at discharge. RN AUTUMN made referral to bluing oven tender for dietary recommendations for pancreatitis. CM will continue to follow this patient and plan for a safe discharge.
--- NOTE | 2024-03-27 17:47 | PN.HOSP_ITS ---
Reason for Visit Reason for Visit: Diagnoses Acute pancreatitis without necrosis or infection, unspecified (03/26/24) Subjective Subjective Patient was seen and examined today, she still complains of pain going up into her left upper chest area from her left abdomen. Patient had an MRCP performed which did not show any evidence of stones in the duct, I have discussed her care with gastroenterology today. Objective Data Objective Data Vital Signs: Vital Signs Temp Pulse Resp BP Pulse Ox O2 Del Method 97.4 F L 113 H 18 120/90 H 99 Room Air 03/27/24 14:00 03/27/24 14:00 03/27/24 14:00 03/27/24 14:00 03/27/24 14:00 03/27/24 14:00 Oxygen Delivery Method Room Air Weight: 63.2 kg Body Mass Index (BMI) 25.4 Intake & Output: Intake and Output for Last 24 Hours 03/25/24 03/26/24 03/27/24 23:59 23:59 23:59 Intake Total 3293.33 / 3413.33 2957.50 / 2957.50 Balance 3293.33 / 3413.33 2957.50 / 2957.50 Lab / Micro Data 03/27/24 06:42 03/27/24 06:42 Labs: Laboratory Results - last 24 hr 03/27/24 06:42: WBC 6.3, RBC 3.45 L, Hgb 10.2 L, Hct 31.8 L, MCV 92.2, MCH 29.6, MCHC 32.1, RDW Std Deviation 48.6 H, RDW Coeff of Mercedes 14.1, Plt Count 260, MPV 12.1 H, Immature Gran % (Auto) 0.600, Neut % (Auto) 52.6, Lymph % (Auto) 32.8, [place] % (Auto) 7.6, Eos % (Auto) 5.9 H, Baso % (Auto) 0.5, Absolute Neuts (auto) 3.3, Absolute Lymphs (auto) 2.07, Nucleated RBC % 0, Sodium 140, Potassium 3.9, Chloride 110 H, Carbon Dioxide 22.0, Anion Gap 8, BUN 3 L, Creatinine 0.26 L, Estim Creat Clear Calc 271.38, Est GFR (MDRD) Af Amer 383, Est GFR (MDRD) Non-Af 317, BUN/Creatinine Ratio 11.4, Glucose 87, Calcium 7.9 L, Phosphorus 3.8, Magnesium 1.7, Total Bilirubin 0.40, Direct Bilirubin 0.12, AST 16, ALT 9 L, A lkaline Phosphatase 144 H, Total Protein 5.2 L, Albumin 1.7 L, Globulin 3.5, A lbumin/Globulin Ratio 0.5 L, Lipase 66 Radiography Diagnostic Testing: Radiology Impression MRCP 03/27/24 09:20 IMPRESSION: Mild postcholecystectomy dilatation of the intrahepatic ducts. Electronically Signed: Saad Bell MD at 12:50 EDT Reading Location ID and State: [facility] / [place] , Service support , Physical Exam Const alert, oriented x3, no apparent distress and average body habitus General Appearance: cooperative, well kempt and well developed Orientation / Consciousness: awake, oriented to person, oriented to place and oriented to time HEENT normocephalic and moist oral mucous membranes Eyes PERRL, EOMs intact bilaterally and conjunctivae normal Neck supple, no JVD, thyroid normal and no carotid bruits General: trachea midline Resp normal respiratory effort and clear to auscultation bilaterally Auscultation: Negative for rales, rhonchi or wheezes Cardio regular rate, regular rhythm, S1 normal heart sound, S2 normal heart sound, no murmurs, no rub and no gallops GI normal to inspection, nondistended, normoactive bowel sounds, soft to palpation, non-tender and non-distended Extremity no clubbing, cyanosis or edema Skin no rashes or lesions noted General Skin Exam: no breakdown Neuro oriented x3, CN's II-XII intact bilaterally, moves all extremities, no focal motor deficits and no sensory deficits noted Sensorium / Orientation: awake and alert Speech: speech normal Psych affect normal Assessment & Plan Assessment/Plan (1) Acute pancreatitis: PLAN: Plan 1. Acute recurrent pancreatitis-etiology unclear, gastroenterology is participating in her care-I had a discussion concerning her care with Dr. Miller today, she will continue to receive analgesics #2 left upper chest discomfort-this radiates from the patient's left upper abdominal quadrant, not sure of the etiology of this discomfort, I will order a noncontrasted CT of the chest to try to rule out any pathology. Total clinical time spent by myself addressing the patient's medical issues, reviewing all of her data, and collaborating with patient's care team: 35 minutes Charges/Coding Visit Charges Inpatient E&M: 92225 Subs Hosp L2
--- NOTE | 2024-03-27 18:01 | CT_ITS ---
EXAM: CT CHEST WITHOUT INTRAVENOUS CONTRAST CLINICAL INDICATION: LEFT UPPER CHEST PAIN TECHNIQUE: Helically acquired images were obtained of the chest without intravenous contrast. This CT exam was performed using one or more of the following dose reduction techniques: automated exposure control, adjustment of the mA and/or kV according to patient size, and/or use of iterative reconstruction technique. RADIATION DOSE: CTDIvol = 7.06 mGy, DLP = 218.87 mGy-cm COMPARISON: No relevant prior studies available. FINDINGS: LUNGS AND PLEURAL SPACES: Trace right pleural effusion. Small left pleural effusion. Compressive atelectasis seen in both posterior lung bases worse on the left. No definite infiltrates. No mass. No pneumothorax. HEART: Unremarkable. Heart size is normal. No pericardial effusion. No significant coronary artery calcifications. MEDIASTINUM: Unremarkable. No mediastinal or hilar adenopathy. Esophagus is unremarkable. No hiatal hernia. THYROID: Unremarkable. No thyroid lesions. BONES/JOINTS: Unremarkable. No suspicious lytic or blastic abnormality. VASCULATURE: Unremarkable. Thoracic aorta is non-dilated. CT/Chest without Contrast IMPRESSION: 1. There are bilateral small pleural effusions. 2. No other definite acute or significant abnormality seen. Electronically Signed: Shaggy Rodríguez MD at 20:20 EDT ,
[2024-03-27 18:23] LABS: Erythrocyte Sedimentation Rate 14 mm/hr (0-30)
[2024-03-27 18:38] LABS: LDH 123 U/L (84-246)
--- NOTE | 2024-03-27 18:51 | CON.PCM.GI_ITS ---
HPI Consult Data Date of Consult: 03/27/24 HPI Narrative Reason for Consultation: Pancreatitis HPI Narrative: FEROZ CHEEK, is a 33 F who presents with a past medical history of acute recurrent pancreatitis s/p cholecystectomy w/ choledocholithiasis status post ERCP with stone removal and stent placement and stent removal. She also has a history of chronic cannabis usage. She comes back in with worsening abdominal pain. On 03/22/24 CT abdomen with IV contrast with noted new fluid collection adjacent to the left adrenal gland suggestive of a pseudocyst additionally an area of fluid in the pancreatic body/tail and better defined than prior suggestive of pseudocyst versus walled off necrosis, nonspecific hypodense lesion at the dome of the liver not definitively seen prior noted on previous to appear somewhat hyperenhancing suggestive of possibly hemangioma. She presented to the ED on 03/26/24 with severe epigastric and left upper quadrant pain radiating up her left chest to her left shoulder with mild ongoing pain since her recent discharge however more excruciating over the last 12 hours with associated nausea and emesis prompting ED evaluation. She notes ongoing loose stools which have been a chronic issue but now she reports occasionally watery and then soft pencil like. She notes ongoing flatus but reports feeling as though she has to bear down more to release gas. She currently rates her pain 4/10 in severity following ED patient regimen and prior to this noted it was 8-9/10 in severity, aching and sharp, worse with palpation. All labs are noted to be in normal limits except for mildly elevated lipase at 250. An MRCP was ordered and it showed continue intrahepatic extrahepatic ductal dilation status postcholecystectomy with a mildly dilated pancreatic duct. There were also 2 cysts seen in the body of the pancreas and the tail the pancreas consistent with previous pseudocyst. Her previous workup included normal IgG4, VLADISLAV, anti-smooth muscle antibody, ANCA, triglycerides, IBD SGI, celiac profile. The only thing is pending is labs for hereditary pancreatitis. Currently she is still having some abdominal pain but would like to have her diet advanced. [facility] Medical History Cannabis use disorder Choledocholithiasis Anemia Tobacco use Pancreatitis IBS (irritable bowel syndrome) Home Medications ?Medication ?Instructions ?Recorded ?Last Taken ?Type Lactobacillus acidophilus 500 500 mmu cells PO BID Flowonix 01/12/24 01/12/24 History million cell capsule albuterol sulfate 90 mcg/actuation 1 - 2 puff inhalation Q6H PRN 01/12/24 Unknown History aerosol inhaler ASTHMA folic acid 1 mg tablet 1 mg PO DAILY SUPPLEMENT 01/12/24 01/12/24 History thiamine HCl (vitamin B1) 100 mg 100 mg PO DAILY SUPPLEMENT 01/12/24 01/12/24 History tablet omeprazole 40 mg capsule,delayed 40 mg PO DAILY GERD 30 days #30 01/15/24 Unknown Rx release caps potassium chloride 20 mEq 20 meq PO BIDCM low potassium 5 02/03/24 Unknown Rx tablet,extended release(part/cryst) days #20 tabs prochlorperazine maleate 10 mg 10 mg PO Q8H nausea 03/15/24 Unknown History tablet (Compazine) acetaminophen 500 mg tablet 1,000 mg (2 x 500 mg) PO Q8 #0 tabs 03/18/24 Unknown Rx ursodiol 300 mg capsule 300 mg PO TID #90 caps 03/18/24 Unknown Rx cyclobenzaprine 5 mg tablet 5 mg PO DAILY #30 tabs 03/24/24 Unknown Rx sennosides 8.6 mg-docusate sodium 1 tab-cap PO BID 03/26/24 Unknown History 50 mg capsule (Senna Plus) Allergy/AdvReac Type Severity Reaction Status Date / Time codeine AdvReac Intermediate Vomiting Verified 03/26/24 02:23 Family History Mother Diabetes Asthma Thyroid disorder IBS (irritable bowel syndrome) Father Diabetes Hypertension Surgical History Previous section S/P ERCP History of cholecystectomy Social History (Updated 03/26/24 @ 04:[address] Prema Cheek MD) household members: significant other and children Smoking Status: Light Smoker (<10/day) alcohol intake: never details: no alcohol substance use type: marijuana ROS ROS Narrative Admission Review of Systems: CONSTITUTIONAL: No weight loss, fever, chills, + weakness or fatigue. HEENT: Eyes: No visual loss, blurred vision, double vision or yellow sclerae. Ears, Nose, Throat: No hearing loss, sneezing, congestion, runny nose or sore throat. SKIN: No rash or itching, lesions, wounds. CARDIOVASCULAR: + Atypical chest pain. No palpitations, edema, orthopnea, syncopal events. RESPIRATORY: No shortness of breath, cough or sputum, wheezing, hemoptysis. GASTROINTESTINAL: + anorexia, nausea, vomiting, abdominal pain, diarrhea. No melena, BRBPR. GENITOURINARY: No dysuria, frequency, urgency or retention. NEUROLOGICAL: No headache, dizziness, syncope, paralysis, ataxia, numbness or tingling in the extremities, focal weakness, change in bowel or bladder control, seizure. MUSCULOSKELETAL: No muscle, back pain, joint pain or stiffness. HEMATOLOGIC: No anemia, bleeding or bruising. LYMPHATICS: No enlarged nodes. No history of splenectomy. PSYCHIATRIC: No history of depression or anxiety. ENDOCRINOLOGIC: No reports of sweating, cold or heat intolerance. No polyuria or polydipsia. ALLERGIES: No history of asthma, hives, eczema or rhinitis. Physical Exam Const alert, oriented x3, no apparent distress and average body habitus General Appearance: cooperative, well kempt and well developed Orientation / Consciousness: awake, oriented to person, oriented to place and oriented to time HEENT normocephalic and moist oral mucous membranes Eyes PERRL, EOMs intact bilaterally and conjunctivae normal Neck supple, no JVD, thyroid normal and no carotid bruits General: trachea midline Resp normal respiratory effort and clear to auscultation bilaterally Auscultation: Negative for rales, rhonchi or wheezes Cardio regular rate, regular rhythm, S1 normal heart sound, S2 normal heart sound, no murmurs, no rub and no gallops GI normal to inspection, nondistended, normoactive bowel sounds, soft to palpation, non-tender and non-distended Extremity no clubbing, cyanosis or edema Skin no rashes or lesions noted General Skin Exam: no breakdown Neuro oriented x3, CN's II-XII intact bilaterally, moves all extremities, no focal motor deficits and no sensory deficits noted Sensorium / Orientation: awake and alert Speech: speech normal Psych affect normal Lab / Micro Data 03/27/24 06:42 03/27/24 06:42 Labs: Laboratory Results - last 24 hr 03/27/24 06:42: WBC 6.3, RBC 3.45 L, Hgb 10.2 L, Hct 31.8 L, MCV 92.2, MCH 29.6, MCHC 32.1, RDW Std Deviation 48.6 H, RDW Coeff of Mercedes 14.1, Plt Count 260, MPV 12.1 H, Immature Gran % (Auto) 0.600, Neut % (Auto) 52.6, Lymph % (Auto) 32.8, [place] % (Auto) 7.6, Eos % (Auto) 5.9 H, Baso % (Auto) 0.5, Absolute Neuts (auto) 3.3, Absolute Lymphs (auto) 2.07, Nucleated RBC % 0, ESR 14, Sodium 140, Potassium 3.9, Chloride 110 H, Carbon Dioxide 22.0, Anion Gap 8, BUN 3 L, C reatinine 0.26 L, Estim Creat Clear Calc 271.38, Est GFR (MDRD) Af Amer 383, Est GFR (MDRD) Non-Af 317, BUN/Creatinine Ratio 11.4, Glucose 87, Calcium 7.9 L, Phosphorus 3.8, Magnesium 1.7, Total Bilirubin 0.40, Direct Bilirubin 0.12, AST 16, ALT 9 L, Alkaline Phosphatase 144 H, Lactate Dehydrogenase 123, C-React Prot Ext Range 41.60 H, Total Protein 5.2 L, Albumin 1.7 L, Globulin 3.5, A lbumin/Globulin Ratio 0.5 L, Lipase 66 Imaging Radiology Impression MRCP 03/27/24 09:20 IMPRESSION: Mild postcholecystectomy dilatation of the intrahepatic ducts. Electronically Signed: Saad Bell MD at 12:50 EDT Reading Location ID and State: [facility] / [place] , Service support , Assessment & Plan Assessment/Plan (1) Acute pancreatitis: PLAN: Plan Patient is a 33-year-old lady with multiple admission for pancreatitis presented with abdominal pain Abdominal pain secondary to Acute pancreatitis secondary to Choledocholithiasis ERCP on 03/17/2024 did show A single localized biliary stricture was found in the lower third of the main bile duct.previously she had choledocholithiasis was found and removed. Complete removal was accomplished by biliary sphincterotomy and balloon extraction. One stent was removed from the biliary tree. CT of the abdomen obtained on admission revealed new fluid collection adjacent to the left adrenal gland, suggestive of a pseudocyst. Biliary stent was removed Additionally there are areas of fluid in the pancreatic body/tail which are better defined than on prior suggestive of pseudocyst/walled off necrosis. Nonspecific hypodense lesion at the dome of the liver, which is not definitively seen on previous imaging. This area appears somewhat hyperenhancing on priors, suggestive of possible hemangioma. Currently her white count is normal and her hematocrit is 34%. Her BUN is normal at 12 and creatinine is 0.7. Those are good indicators for proper resuscitation from acute pancreatitis. She has a very low Charlotte score and low score by imaging. At this time she is recommending pain control, nausea control and continue IV fluids. Charges/Coding Visit Charges Inpatient E&M: 43757 Init Hosp L3
[2024-03-28] MEDS: HYDROmorphone 1 MG/ML Syringe IV ×4 (00:10→09:39)
[2024-03-28 02:00] VITALS: BP 117/80; PULSE 90; RESP 16; TEMP 36.6; O2SAT 100
[2024-03-28] MEDS: oxyCODONE 5 MG Tablet 10 MG PO ×3 (03:03→12:21)
[2024-03-28 04:09] VITALS: BMI 26.2
[2024-03-28] MEDS: Ursodiol 250 MG Tablet PO (06:10)
[2024-03-28] MEDS: Meropenem 1 GM in 0.9% Normal Saline (100mL MB+) 100 ML IV (06:10)
[2024-03-28] MEDS: 0.9% Normal Saline (1000mL) 1,000 ML 150 ML IV (06:11)
[2024-03-28 07:32] VITALS: BP 130/87; PULSE 114; RESP 16; TEMP 36.4; O2SAT 98
[2024-03-28 07:40] LABS: Anion Gap 7 (5-15); BUN 1 mg/dL (7-18); BUN/Creat Ratio 2.9 RATIO (10-20); Chloride 109 mmol/L (98-107); Creatinine, Serum 0.35 mg/dL (0.55-1.02); EST Glomerular Filtration Rate 229 mL/min (>60); Est Glom Filt Rate - Afr Amer 278 mL/min (>60); Estimated Creatinine Clearance 204.07 ml/min; Glucose 88 mg/dL (74-106); Potassium 3.5 mmol/L (3.5-5.1); Sodium Level 138 mmol/L (136-145)
[2024-03-28] MEDS: Thiamine Hydrochloride 100 MG Tablet PO (07:41)
[2024-03-28] MEDS: Folic Acid 1 MG Tablet PO (07:41)
[2024-03-28] MEDS: 0.9% Saline Lock 10 ML Syringe IV (09:38)
--- NOTE | 2024-03-28 09:49 | DCINST_ITS ---
Discharge Instructions Diet Discharge Diet: No restrictions Activity Discharge Activity: Return to Normal Activity Weight Bearing Status: Full weight bearing Follow Up Care Test Results: Test results from this visit will be discussed in further detail at your follow- up appointment, if applicable. Discharge Plan Admission Admit Date/Time: 03/26/24 03:59 Attending Provider: Cas Moya Primary Care Provider: Rossi Jones Consulting Providers: Prema Kaiser; Kenrick Dow Discharge Orders/Prescriptions Prescriptions: New oxycodone 5 mg Tablet 5 - 10 mg PO 4XD PRN (Reason: Pain Score 4-10) 7 Days Qty: 56 0RF prochlorperazine maleate [Compazine] 10 mg tablet 10 mg PO Q6H PRN (Reason: nausea and vomiting) Qty: 30 0RF sucralfate [Carafate] 1 gram tablet 1 g PO TID Qty: 90 0RF Continued potassium chloride 20 mEq Tablet,Er Particles/Crystals 20 meq PO BIDCM 5 Days Qty: 20 0RF acetaminophen 500 mg Tablet 1,000 mg PO Q8 Qty: 0 0RF ursodiol 300 mg capsule 300 mg PO TID Qty: 90 0RF Senna Plus 8.6-50 mg capsule 1 tab-cap PO BID Lactobacillus acidophilus 500 million cell capsule 500 mmu cells PO BID folic acid 1 mg tablet 1 mg PO DAILY thiamine HCl (vitamin B1) 100 mg tablet 100 mg PO DAILY albuterol sulfate 90 mcg/actuation HFA aerosol inhaler 1 - 2 puff inhalation Q6H PRN (Reason: ASTHMA ) omeprazole 40 mg capsule,delayed release(DR/EC) 40 mg PO DAILY 30 Days Qty: 30 0RF cyclobenzaprine 5 mg tablet 5 mg PO DAILY Qty: 30 0RF Discontinued prochlorperazine maleate [Compazine] 10 mg tablet 10 mg PO Q8H Referrals / Follow Up: Rossi Jones DO [Primary Care Provider] - Friend,DO Raj [Med Staff - Active Staff] - In 1 Week (Care Management Associate called and left a voicemail. She will be calling back shortly. ) Disposition Disposition (needs filled in before D/C Order can be placed): Home, Self Care
[2024-03-28] MEDS: Pantoprazole Sodium 40 MG in 0.9% Normal Saline (100mL MB+) 100 ML 330 MG IV (09:54)
[2024-03-28] MEDS: cycloBENZAPRine HCl 5 MG TABLET PO (09:55)
--- NOTE | 2024-03-28 09:55 | PCM.DC.SUM ---
Providers Date of Admission: 03/26/24 Date of Discharge: 03/28/24 Primary Care Physician: Dr. Rossi Jones, DO Consultations 03/26/24 04:37 Consult: Gastroenterology Routine Consulting Provider: [facility] Reason for Consult: Recurrent acute pancreatitis, pseudocysts EMERGENT Consult: No MD Notified: Yes Date Notified: 03/26/24 Time Notified: 04:03 Method of Notification: Text Reason For Visit: ACUTE PANCREATITIS Diagnosis Discharge Diagnosis (1) Acute pancreatitis: Status: Acute Code(s): K85.90 - Acute pancreatitis without necrosis or infection, unspecified Plan 1. Acute recurrent pancreatitis-etiology unclear, gastroenterology is participating in her care-I had a discussion concerning her care with Dr. Miller today, she will continue to receive analgesics #2 left upper chest discomfort-this radiates from the patient's left upper abdominal quadrant, not sure of the etiology of this discomfort, I will order a noncontrasted CT of the chest to try to rule out any pathology. Total clinical time spent by myself addressing the patient's medical issues, reviewing all of her data, and collaborating with patient's care team: 35 minutes Medications at Discharge Home Medications Lactobacillus acidophilus 500 million cell capsule 500 mmu cells PO BID [employer] 01/12/24 albuterol sulfate 90 mcg/actuation aerosol inhaler 1 - 2 puff inhalation Q6H PRN ASTHMA 01/12/24 folic acid 1 mg tablet 1 mg PO DAILY SUPPLEMENT 01/12/24 thiamine HCl (vitamin B1) 100 mg tablet 100 mg PO DAILY SUPPLEMENT 01/12/24 omeprazole 40 mg capsule,delayed release 40 mg PO DAILY GERD 30 days #30 caps 01/15/24 potassium chloride 20 mEq tablet,extended release(part/cryst) 20 meq PO BIDCM low potassium 5 days #20 tabs 02/03/24 acetaminophen 500 mg tablet 1,000 mg (2 x 500 mg) PO Q8 #0 tabs 03/18/24 ursodiol 300 mg capsule 300 mg PO TID #90 caps 03/18/24 cyclobenzaprine 5 mg tablet 5 mg PO DAILY #30 tabs 03/24/24 sennosides 8.6 mg-docusate sodium 50 mg capsule (Senna Plus) 1 tab-cap PO BID 03/26/24 oxycodone 5 mg tablet 5 - 10 mg (1 - 2 x 5 mg) PO 4XD PRN Pain Score 4-10 1 week #56 tabs 03/28/24 prochlorperazine maleate 10 mg tablet (Compazine) 10 mg PO Q6H PRN nausea and vomiting #30 tabs 03/28/24 sucralfate 1 gram tablet (Carafate) 1 g PO TID #90 tabs 03/28/24 Hospital Course Operations None Procedures None Summary of Care Provided Minutes Spent on Discharge: 31 Hospital Course: This 33-year-old white female was seen in the emergency room at [facility] with complaints of generalized abdominal pain. She had been hospitalized here recently twice for pancreatitis, both times stones were removed from the patient's common bile duct. Workup in the emergency room included labs which were abnormal for a C-reactive protein of 41.6, alkaline phosphatase was elevated 144, lipase was normal at 66. Patient's CBC was unremarkable, abdominal CT showed a new fluid collection adjacent to the left adrenal gland suggestive of pseudocyst, there was also noted to be areas of fluid in the pancreatic body/tail suggestive of pseudocyst or walled off necrosis. There is a nonspecific hypodense lesion at the dome of the liver suggestive of a possible hemangioma. Patient was given IV pain medication and fluids and admitted to PCU, conversations were carried out with the heavy equipment service manager but it was not necessary for him to see the patient during her hospitalization. Patient had an MRCP performed which did not show evidence of any obstruction or dilated ducts. Patient's pain improved during her hospitalization but she still have pain at the time of her discharge home. It was recommended that the patient be placed on Carafate by gastroenterology. On 03/28/2024, patient was seen and examined: On examination she appeared in good health and spirits, she does not appear to be in any distress. Vital signs as documented. Skin warm and dry and without overt rashes. Neck without JVD, thyroid appears normal, trachea is midline, neck is supple. Lungs clear, normal air movement was noted. Heart exam notable for regular rhythm, normal sounds and absence of murmurs, rubs or gallops. Abdomen examined without evidence of organomegaly, masses, or abdominal aortic enlargement, bowel sounds are present in all 4 quadrants, patient had mild to moderate abdominal tenderness over the mid abdomen area. Extremities nonedematous, no cyanosis was noted, no clubbing was noted. Neuro: Cranial nerves II through XII are grossly intact, no focal motor deficits were noted, sensation to light touch and pinprick is intact, motor exam 5/5 throughout. Psych: Patient is alert and oriented x3, she does not appear anxious or depressed, she does not appear agitated. I made the decision that the patient was stable for discharge home, I provided pain medication for the next several days for the patient and she was instructed to follow-up next week with gastroenterology and an appointment was made for the patient. Patient was discharged in stable condition, the etiology of the patient's recurrent pancreatitis was unknown. Weight / BMI Weight Weight: 64.9 kg Body Mass Index (BMI) 26.2 ABG / Lab / Microbiology Data 03/27/24 06:42 03/28/24 06:25 Laboratory: Laboratory Results - last 24 hr 03/27/24 06:42: ESR 14, Lactate Dehydrogenase 123, C-React Prot Ext Range 41.60 H 03/28/24 06:25: Sodium 138, Potassium 3.5, Chloride 109 H, Carbon Dioxide 22.0, Anion Gap 7, BUN 1 L, Creatinine 0.35 L, Estim Creat Clear Calc 204.07, Est GFR (MDRD) Af Amer 278, Est GFR (MDRD) Non-Af 229, BUN/Creatinine Ratio 2.9 L, Glucose 88, Calcium 8.0 L Radiography Diagnostic Testing: Radiology Impression MRCP 03/27/24 09:20 IMPRESSION: Mild postcholecystectomy dilatation of the intrahepatic ducts. Electronically Signed: Saad Bell MD at 12:50 EDT , Chest CT 03/27/24 18:01 IMPRESSION: 1. There are bilateral small pleural effusions. 2. No other definite acute or significant abnormality seen. Electronically Signed: Shaggy Rodríguez MD at 20:20 EDT , D/C Instructions Discharge Diet: No restrictions Weight Bearing Status: Full weight bearing Meaningful Use Info Meaningful Use Meaningful Use Diagnoses (Choose all that apply): None applicable Ischemic Stroke Statin Dosing Therapy Reference: STATIN DOSE THERAPY REFERENCE: * Patients > 75 years receive moderate or high dose statin therapy. * Patients 75 years or YOUNGER should receive HIGH intensity statin dose unless contraindicated. You will be required to document reason for non-treatment if statin daily dose does not meet guidelines. HIGH DOSE STATIN THERAPY DAILY Atorvastatin > than or = to 40 mg Rosuvastatin > than or = to 20 mg Amlodipine + Atorvastatin > than or = to 2.5/40 mg Ezetimibe + Simvastatin 10/80 mg Simvastatin 80mg Discharge Plan Admission Admit Date/Time: 03/26/24 03:59 Attending Provider: Cas Moya Primary Care Provider: Rossi Jones Consulting Providers: Prema Kaiser; Kenrick Dow Discharge Orders/Prescriptions Prescriptions: New oxycodone 5 mg Tablet 5 - 10 mg PO 4XD PRN (Reason: Pain Score 4-10) 7 Days Qty: 56 0RF prochlorperazine maleate [Compazine] 10 mg tablet 10 mg PO Q6H PRN (Reason: nausea and vomiting) Qty: 30 0RF sucralfate [Carafate] 1 gram tablet 1 g PO TID Qty: 90 0RF Continued potassium chloride 20 mEq Tablet,Er Particles/Crystals 20 meq PO BIDCM 5 Days Qty: 20 0RF acetaminophen 500 mg Tablet 1,000 mg PO Q8 Qty: 0 0RF ursodiol 300 mg capsule 300 mg PO TID Qty: 90 0RF Senna Plus 8.6-50 mg capsule 1 tab-cap PO BID Lactobacillus acidophilus 500 million cell capsule 500 mmu cells PO BID folic acid 1 mg tablet 1 mg PO DAILY thiamine HCl (vitamin B1) 100 mg tablet 100 mg PO DAILY albuterol sulfate 90 mcg/actuation HFA aerosol inhaler 1 - 2 puff inhalation Q6H PRN (Reason: ASTHMA ) omeprazole 40 mg capsule,delayed release(DR/EC) 40 mg PO DAILY 30 Days Qty: 30 0RF cyclobenzaprine 5 mg tablet 5 mg PO DAILY Qty: 30 0RF Discontinued prochlorperazine maleate [Compazine] 10 mg tablet 10 mg PO Q8H Referrals / Follow Up: Rossi Jones DO [Primary Care Provider] - 03/31/24 9:30 am Raj Miller DO [Med Staff - Active Staff] - 03/31/24 1:00 pm (At Dr. Mendoza office on the ground floor. Appointment is with Nurse Practitioner Marcellus. ) Disposition Disposition (needs filled in before D/C Order can be placed): Home, Self Care Charges/Coding Visit Charges Inpatient E&M: 03643 Disch Hosp >30min
--- NOTE | 2024-03-28 11:02 | CASEMGMT ---
Patient has order for discharge. RN CM in to discuss needs at discharge. Patient denies needs or help at discharge. Patient had no further questions or concerns.
[2024-03-28] MEDS: Acetaminophen 325 MG Tablet 650 MG PO (12:20)
--- NOTE | 2024-03-28 17:13 | EX.PCM.PN.GI ---
Subjective Subjective Patient still having abdominal pain but has been afebrile. She did have a mildly elevated CRP from some reason. She is tolerating fluids and soft foods orally Objective Data Objective Data Vital Signs: Vital Signs Temp Pulse Resp BP Pulse Ox O2 Del Method 97.6 F L 114 H 16 130/87 H 98 Room Air 03/28/24 07:32 03/28/24 07:32 03/28/24 07:32 03/28/24 07:32 03/28/24 07:32 03/28/24 07:32 Oxygen Delivery Method Room Air Weight: 143 lb 1.28 oz Body Mass Index (BMI) 26.2 Intake & Output: Intake and Output for Last 24 Hours 03/26/24 03/27/24 03/28/24 23:59 23:59 23:59 Intake Total 3293.33 / 3413.33 4187.50 / 4667.50 3232.5 / 3232.5 Balance 3293.33 / 3413.33 4187.50 / 4667.50 3232.5 / 3232.5 Lab / Micro Data 03/27/24 06:42 03/28/24 06:25 Labs: Laboratory Results - last 24 hr 03/27/24 06:42: ESR 14, Lactate Dehydrogenase 123, C-React Prot Ext Range 41.60 H 03/28/24 06:25: Sodium 138, Potassium 3.5, Chloride 109 H, Carbon Dioxide 22.0, Anion Gap 7, BUN 1 L, Creatinine 0.35 L, Estim Creat Clear Calc 204.07, Est GFR (MDRD) Af Amer 278, Est GFR (MDRD) Non-Af 229, BUN/Creatinine Ratio 2.9 L, Glucose 88, Calcium 8.0 L Radiography Diagnostic Testing: Radiology Impression Chest CT 03/27/24 18:01 IMPRESSION: 1. There are bilateral small pleural effusions. 2. No other definite acute or significant abnormality seen. Electronically Signed: Shaggy Rodríguez MD at 20:20 EDT , Physical Exam Const alert, oriented x3, no apparent distress and average body habitus General Appearance: cooperative, well kempt and well developed Orientation / Consciousness: awake, oriented to person, oriented to place and oriented to time HEENT normocephalic and moist oral mucous membranes Eyes PERRL, EOMs intact bilaterally and conjunctivae normal Neck supple, no JVD, thyroid normal and no carotid bruits General: trachea midline Resp normal respiratory effort and clear to auscultation bilaterally Auscultation: Negative for rales, rhonchi or wheezes Cardio regular rate, regular rhythm, S1 normal heart sound, S2 normal heart sound, no murmurs, no rub and no gallops GI normal to inspection, nondistended, normoactive bowel sounds, soft to palpation, non-tender and non-distended Extremity no clubbing, cyanosis or edema Skin no rashes or lesions noted General Skin Exam: no breakdown Neuro oriented x3, CN's II-XII intact bilaterally, moves all extremities, no focal motor deficits and no sensory deficits noted Sensorium / Orientation: awake and alert Speech: speech normal Psych affect normal Assessment & Plan Assessment/Plan (1) Acute pancreatitis: PLAN: Plan Patient is a 33-year-old lady with multiple admission for pancreatitis presented with abdominal pain Abdominal pain secondary to Acute pancreatitis secondary to Choledocholithiasis ERCP on 03/17/2024 did show A single localized biliary stricture was found in the lower third of the main bile duct.previously she had choledocholithiasis was found and removed. Complete removal was accomplished by biliary sphincterotomy and balloon extraction. One stent was removed from the biliary tree. CT of the abdomen obtained on admission revealed new fluid collection adjacent to the left adrenal gland, suggestive of a pseudocyst. Biliary stent was removed Additionally there are areas of fluid in the pancreatic body/tail which are better defined than on prior suggestive of pseudocyst/walled off necrosis. Nonspecific hypodense lesion at the dome of the liver, which is not definitively seen on previous imaging. This area appears somewhat hyperenhancing on priors, suggestive of possible hemangioma. Currently her white count is normal and her hematocrit is 34%. Her BUN is normal at 12 and creatinine is 0.7. Those are good indicators for proper resuscitation from acute pancreatitis. She has a very low Gricel score and low score by imaging. At this time she is recommending pain control, nausea control and continue IV fluids. 03/28/2024-her imaging does not show pancreatitis at this time. This is the first image that she has had that does not show up. I think she is healing but is going to take a long time. She has chronicity and the fact that she has pseudocyst that are present on her MRI. I suspect that she does have local inflammation of the duodenum that is adjacent to her previous acute recurrent pancreatitis. Recommend PPI twice daily and antisecretory therapy with Carafate twice daily. She will need to have outpatient endoscopic ultrasound. Labs are hereditary pancreatitis were sent off. Charges/Coding Visit Charges Inpatient E&M: 93276 Subs Hosp L3
== END 2024-03-28 12:40 | disposition home or self-care (01) | DRG 282 ==
LOC: ED 03:49 → PCU 05:42
PROVIDERS: Internal Medicine; Internal Medicine Gastroenterology; Admitting Provider Family Medicine; Emergency Provider Emergency Medicine; PCP Family Medicine; Visit Provider Internal Medicine
DX: K85.90 Acute pancreatitis without necrosis or infection, unspecified (principal); D64.9 Anemia, unspecified; J45.20 Mild intermittent asthma, uncomplicated; K21.9 Gastro-esophageal reflux disease without esophagitis; F17.210 Nicotine dependence, cigarettes, uncomplicated; Z90.49 Acquired absence of other specified parts of digestive tract; R03.0 Elevated blood-pressure reading, without diagnosis of hypertension; Z79.899 Other long term (current) drug therapy; R07.89 Other chest pain; K86.3 Pseudocyst of pancreas
CPT/HCPCS: 36415; 71250; 74181; 80048; 80053; 80076; 83605; 83615; 83690; 83735; 84100; 84145; 85025; 85652; 86140; 94668; 97802; 97803; 99283; 99406; J2185; J7030; J7040; A4216; J2405

== ENCOUNTER 2024-05-09 13:24 | Inpatient (IN) | payer MEDICAID, SELFPAY ==
[2024-05-09 13:25] VITALS: BP 105/73; PULSE 103; RESP 20; TEMP 35.8; O2SAT 98; BMI 24.3
[2024-05-09 13:54] LABS: Absolute Lymphocyte Count 2.12 X10^3/uL (0.83-4.51); Basophil# 0.05 X10^3/uL; Basophil% 0.4 % (0-1); Eosinophil# 0.11 X10^3/uL; Eosinophils% 0.8 % (0-5); Hematocrit 40.1 % (37-47); Hemoglobin 13.2 g/dL (12.0-15.0); Lymphocyte # 2.12 X10^3/ul (0.83-4.51); Lymphocyte % 15.4 % (19-41); Mean Corp Hgb Conc 32.9 g/dL (32-36); Mean Corpuscular Hgb 29.5 pg (27.0-32.0); Mean Corpuscular Volume 89.5 fL (81-99); Mean Platelet Vol. 11.7 fl (6.2-12.0); Monocyte# 0.45 X10^3/uL; Monocyte% 3.3 % (0-10); NRBC Flagged by Analyzer 0 % (0-5); Neutrophil # 10.96 X10^3/uL (2.7-7.7); Neutrophil % 79.4 % (47-70); Platelet Count 378 K/mm3 (150-450); RBC Distribution Width CV 14.2 % (11.6-14.6); RBC Distribution Width SD 45.6 fl (35.1-43.9); Red Blood Count 4.48 M/mm3 (4.2-5.4); White Blood Count 13.8 K/mm3 (4.4-11.0)
[2024-05-09 14:35] LABS: ALB/GLOB Ratio 0.8 RATIO (0.9-2.4); AST(SGOT) 25 U/L (15-37); Alanine Aminotransfer ALT/SGPT 40 U/L (13-56); Albumin, Serum 3.3 g/dL (3.2-5.0); Alkaline Phosphatase 153 U/L (45-117); Anion Gap 8 (5-15); BUN 10 mg/dL (7-18); BUN/Creat Ratio 18.9 RATIO (10-20); Calcium,Total 9.1 mg/dL (8.5-10.1); Chloride 102 mmol/L (98-107); Creatinine, Serum 0.53 mg/dL (0.55-1.02); EST Glomerular Filtration Rate 142 mL/min (>60); Est Glom Filt Rate - Afr Amer 172 mL/min (>60); Globulin 4.3 g/dL (2.2-4.2); Glucose 119 mg/dL (74-106); Potassium 4.2 mmol/L (3.5-5.1); Protein, Total 7.6 g/dL (6.4-8.2); Sodium Level 135 mmol/L (136-145)
--- NOTE | 2024-05-09 15:32 | CT_ITS ---
INDICATION: epigastric abd pain, right flank trauma EXAMINATION: CT ABDOMEN AND PELVIS with CONTRAST - CT Abdomen And Pelvis W/ Contrast Injection TECHNIQUE: Multiple axial images were obtained of the abdomen and pelvis following administration of IV contrast. Planar reconstructions obtained. A radiation dose optimization technique was used for this scan. RADIATION DOSAGE (If Supplied By Facility): CTDIvol = ( 9.43 ) mGy, DLP = ( 469.84 ) mGycm IV Contrast dosage and agent: 75 mL Isovue-300 Oral contrast: None. COMPARISON: 03/22/2024 FINDINGS: LOWER CHEST: 1. Lung bases are clear. 2. No cardiomegaly or pericardial effusion. 3. No significant coronary vascular calcifications. HEPATOBILIARY: Liver: The liver is homogeneous and shows no evidence of focal lesion. Diffuse hepatic steatosis. Gallbladder: Surgical clips in the gallbladder fossa. No ductal dilatation noted. Pancreas: Significant soft tissue stranding in the pancreatic bed and moderate edema within the head neck and proximal body of the pancreas. There is a 1.5 x 1.4 cm cyst in the body the pancreas. Soft tissue stranding is consistent with acute pancreatitis. No abscess noted. There is a persistent encapsulated fluid collection along the lateral aspect of the LEFT shira the diaphragm, measuring 2.9 x 1.1 cm. There has been negligible change. Spleen: The spleen is homogeneous and normal in size. . BOWEL: Stomach: The stomach is normal in size configuration, no evidence of focal masses, abnormal calcifications. No hiatal hernia noted. Bowel: Nonspecific appearance small bowel segments with multiple air-fluid levels present. No bowel obstruction. Large bowel has normal appearance. No masses or diverticulitis. Appendix: The visualized appendix has normal appearance.: GENITOURINARY: Adrenals: Both adrenal glands are normal in size. Kidneys: Kidneys appear symmetric in size. No calcifications are seen in the collecting system. There is no hydronephrosis or surrounding fluid. Bladder: Normal Pelvic organs: The visualized pelvic organs are normal in size and configuration. No masses or adenopathy noted. RETROPERITONEUM: There is normal appearance of the abdominal aorta and inferior vena cava. LYMPH NODES: No evidence of retroperitoneal or para-aortic masses fluid collections or adenopathy. PERITONEAL CAVITY: No ascites noted ANTERIOR ABDOMINAL WALL: Small periumbilical fat-containing hernia. No inguinal hernia. BONES AND SOFT TISSUES: The skeleton shows no evidence for fractures or destructive lesions. OTHER: None CT/Abdomen/Pelvis W IV Cont ONLY IMPRESSION: 1. Significant soft tissue stranding and edema involving the pancreas including the head and uncinate process neck and portion of the body consistent with acute pancreatitis. Scattered lymph nodes are present within the pancreatic bed. No abscess or free air. 2. Stable appearance of a small cyst within the pancreatic body measuring approximately 1.5 x 1.4 cm. 3. Stable appearance of a small encapsulated fluid collection along the LEFT diaphragmatic shira. 4. No evidence of bowel obstruction. Normal appearance of the appendix. 5. Status post cholecystectomy without evidence of ductal dilatation. 6. No evidence of renal calcification or obstructive uropathy. 7. Diffuse hepatic steatosis. Electronically Signed: Abdoul Philip MD at 17:32 EDT ,
--- NOTE | 2024-05-09 15:33 | EDS_ITS ---
HPI HPI - GI History of Present Illness Chief Complaint: Abd Pain Informant: patient Narrative Narrative: Patient is a 33-year-old female with history of pancreatitis and pseudocyst of the pancreas as well as IBS, choledocholithiasis (status post cholecystectomy) presenting with nausea, vomiting and epigastric abdominal pain. She states this morning she developed the symptoms. She did feel like her prior pancreatitis but worse because of the vomiting which she does not normally have. She is the pain is in her epigastric region radiates to her back and underneath her breast bilaterally. She was admitted last month for acute pancreatitis and discharged on 03/28/2024. CT on 04/11 showed pseudocysts/area of walled off necrosis of the pancreatic body/tail. She states that she normally takes tramadol and her pain is well-controlled since being discharged in the hospital but did not help with her pain at all today. She also tried Zofran for symptoms with no relief. Denies any black or blood in her vomit. Is on a bowel movement today but states yesterday was normal. Follows with Dr. Miller. 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 Patient denies any alcohol use. Patient also has a pain and bruising to her right rib in the flank area. She states she was wrestling around with her boyfriend and hit the wall. She has pain to that site. Not sure if that is causing her pancreatitis today. [facility] Medical History Acute pancreatitis Cannabis use disorder Choledocholithiasis Anemia Tobacco use Pancreatitis IBS (irritable bowel syndrome) Home Medications ?Medication ?Instructions ?Recorded ?Last Taken ?Type Lactobacillus acidophilus 500 500 mmu cells PO BID [employer] [facility] 01/12/24 01/12/24 History million cell capsule albuterol sulfate 90 mcg/actuation 1 - 2 puff inhalation Q6H PRN 01/12/24 Unknown History aerosol inhaler ASTHMA omeprazole 40 mg capsule,delayed 40 mg PO DAILY GERD 30 days #30 01/15/24 Unknown Rx release caps acetaminophen 500 mg tablet 1,000 mg (2 x 500 mg) PO Q8 #0 tabs 03/18/24 Unknown Rx ursodiol 300 mg capsule 300 mg PO TID #90 caps 03/18/24 Unknown Rx sennosides 8.6 mg-docusate sodium 1 tab-cap PO BID 03/26/24 Unknown History 50 mg capsule (Senna Plus) prochlorperazine maleate 10 mg 10 mg PO Q6H PRN nausea and 03/28/24 Unknown Rx tablet (Compazine) vomiting #30 tabs sucralfate 100 mg/mL oral 10 ml PO TID #1,000 mL 03/31/24 Unknown Rx suspension dicyclomine 20 mg tablet 20 mg PO TID #90 tabs 04/04/24 Unknown Rx tramadol 100 mg tablet 100 mg PO Q6H PRN pain #60 tabs 04/10/24 Unknown Rx folic acid 1 mg tablet 1 mg PO DAILY SUPPLEMENT #30 tabs 04/17/24 Unknown Rx thiamine HCl (vitamin B1) 100 mg 100 mg PO DAILY SUPPLEMENT #30 04/17/24 Unknown Rx tablet tabs docusate sodium 100 mg capsule 100 mg PO DAILY #30 caps 05/09/24 Unknown Rx Allergy/AdvReac Type Severity Reaction Status Date / Time codeine AdvReac Intermediate Vomiting Verified 05/09/24 13:25 Family History Mother Diabetes Asthma Thyroid disorder IBS (irritable bowel syndrome) Father Diabetes Hypertension Surgical History Previous section S/P ERCP History of cholecystectomy Social History household members: significant other and children Smoking Status: Light Smoker (<10/day) alcohol intake: never details: no alcohol substance use type: marijuana ROS ROS ED Constitutional Constitutional ED: Denies chills Gastrointestinal Gastrointestinal: Reports abdominal pain, nausea and vomiting; Denies cons tipation, diarrhea or melena Genitourinary Genitourinary ED: Denies dysuria Musculoskeletal Musculoskeletal: Reports back pain; Denies arthralgias Integumentary Denies rash Neurologic Neurologic: Denies paresthesias or weakness Hematologic/Lymphatic Hematologic/Lymphatic: Denies easy bleeding or easy bruising EXAM Physical Exam Const Vital Signs: 05/09/24 13:25 05/09/24 16:18 05/09/24 18:22 Temperature 96.5 F L 98.3 F Temperature Source Temporal Pulse Rate 103 H 75 80 Respiratory Rate 20 H 18 Blood Pressure 105/73 118/86 H 111/78 Blood Pressure Mean 83 96 89 Pulse Ox 98 97 Oxygen Delivery Method Room Air Positive well nourished and well developed Constitutional Narrative: Uncomfortable secondary to pain General Appearance ED: well developed HEENT Reports moist mucous membranes Eyes PERRL General Eye ED: Negative for scleral icterus Neck supple Resp normal respiratory effort and clear to auscultation bilaterally Cardio regular rate and regular rhythm GI Inspection: Negative for abdominal distention Auscultation: normoactive bowel sounds Palpation: soft, tender other (Diffuse but most pronounced in the epigastric region) and guarding other (Voluntary); Negative for mass or rebound tenderness present Back/Spine Back/Spine Narrative: Tender palpation over the right CVA but patient has an area of bruising to that area Extremity full ROM General Extremety ED: Negative for edema General Extremity: Negative for edema Neuro Sensorium / Orientation: alert, oriented to person, oriented to place and oriented to time Motor Exam: Negative for general weakness Psych mental status grossly normal and thought process normal Skin Skin Narrative: Healing area of ecchymosis approximately 4 cm x 8 cm of the right CVA area. MDM MDM MDM Narrative Medical decision making narrative: Patient is evaluated for worsening abdominal pain with history of idiopathic pancreatitis. Protocol labs including CBC and CMP were ordered and significant for leukocytosis of 13.8 and mild hyponatremia with a sodium of 135. Alkaline phosphatase mildly elevated at 153 but this appears to be near her baseline. Her bilirubin is normal is low suspicion for acute choledocholithiasis. Her AST and ALT are also normal but slightly above her baseline which is low. This is of uncertain clinical significance. Patient is ordered IV fluids, Zofran and IV morphine. Lipase is added on. CT of abdomen pelvis added on to further evaluate for intra-abdominal pathology sp ecifically pancreatitis/developing of worsening pseudocyst as well as evaluate for trauma given the bruising on her back. Patient continues to have pain despite receiving morphine. Is given IV Dilaudid with further improvement of pain. On repeat evaluation she looks more comfortable but still in some pain. Remains hemodynamically stable in the emergency room. Lipase is elevated 733. Serum is negative. CT abdomen pelvis shows findings distant with pancreatitis as well as a pseudocyst. Case is discussed with Dr. Miller who is amenable with admission to hospital service. Discussed with patient that I think she require admission for further fluids and pain and nausea control. She is in agreement. Case discussed with hospitalist, Dr. Ayers. Patient started on LR at 100 cc an hour for 1 L. Lab Data Attestation: I reviewed the patient's lab results. Labs: Laboratory Results - last 24 hr 05/09/24 05/09/24 13:40 16:16 WBC 13.8 H RBC 4.48 Hgb 13.2 Hct 40.1 MCV 89.5 MCH 29.5 MCHC 32.9 RDW Std Deviation 45.6 H RDW Coeff of Mercedes 14.2 Plt Count 378 MPV 11.7 Immature Gran % (Auto) 0.700 Neut % (Auto) 79.4 H Lymph % (Auto) 15.4 L [place] % (Auto) 3.3 Eos % (Auto) 0.8 Baso % (Auto) 0.4 Absolute Neuts (auto) 11.0 H Absolute Lymphs (auto) 2.12 Nucleated RBC % 0 Sodium 135 L Potassium 4.2 Chloride 102 Carbon Dioxide 25.0 Anion Gap 8 BUN 10 Creatinine 0.53 L Estim Creat Clear Calc 130.50 Est GFR (MDRD) Af Amer 172 Est GFR (MDRD) Non-Af 142 BUN/Creatinine Ratio 18.9 Glucose 119 H Calcium 9.1 Total Bilirubin 0.80 AST 25 ALT 40 Alkaline Phosphatase 153 H Total Protein 7.6 Albumin 3.3 Globulin 4.3 H Albumin/Globulin Ratio 0.8 L Lipase 733 H Serum , Qual NEGATIVE Radiography Diagnostic Testing: Clinical Impression(s) from Imaging Studies Abdomen/Pelvis CT 05/09/24 15:32 IMPRESSION: 1. Significant soft tissue stranding and edema involving the pancreas including the head and uncinate process neck and portion of the body consistent with acute pancreatitis. Scattered lymph nodes are present within the pancreatic bed. No abscess or free air. 2. Stable appearance of a small cyst within the pancreatic body measuring approximately 1.5 x 1.4 cm. 3. Stable appearance of a small encapsulated fluid collection along the LEFT diaphragmatic shira. 4. No evidence of bowel obstruction. Normal appearance of the appendix. 5. Status post cholecystectomy without evidence of ductal dilatation. 6. No evidence of renal calcification or obstructive uropathy. 7. Diffuse hepatic steatosis. Electronically Signed: Abdoul Philip MD at 17:32 EDT , Discharge Plan Triage Chief Complaint: Abd Pain ED Provider: Saadia Milton Dx/Rx/DC Orders Clinical Impression: Acute on chronic pancreatitis, Pseudocyst of pancreas, Nausea & vomiting, Leukocytosis Primary Care Provider: Rossi Jones Disposition Disposition: Acute Care Hospital [facility]
[2024-05-09] MEDS: Ondansetron 4 MG/2 ML Vial IV ×2 (15:39→19:51)
[2024-05-09] MEDS: 0.9% Normal Saline (1000mL) 1,000 ML 999 ML IV (15:39)
[2024-05-09] MEDS: Morphine 4 MG/ML Syringe 6 MG IV (15:40)
[2024-05-09 16:18] VITALS: BP 118/86; PULSE 75
[2024-05-09 16:47] LABS: Internal QC Validated? YES +Cl - CLEAR BKGD; Pregnancy, Serum, hCG Quali. NEGATIVE Negative
[2024-05-09 16:50] LABS: Lipase 733 U/L (13-75)
[2024-05-09] MEDS: HYDROmorphone 0.5 MG/0.5 ML SYRINGE IV ×3 (16:50→22:40)
[2024-05-09 18:22] VITALS: BP 111/78; PULSE 80; RESP 18; TEMP 36.8; O2SAT 97
--- NOTE | 2024-05-09 18:54 | PCM.HP.STD ---
HPI - General General Date of Admission: 05/09/24 Date of Service: 05/09/24 Chief Complaint: Acute pancreatitis HPI Narrative FEROZ CHEEK, is a 33-year-old female history of multiple bouts of pancreatitis and pancreatic pseudocyst, IBS, choledocholithiasis status post cholecystectomy, GERD, tobacco use who presented [facility] ED 05/09/2024 with nausea, vomiting, and epigastric abdominal pain that started this morning. She reports this feels like her typical pancreatitis though worse given her vomiting. She was admitted last month for acute pancreatitis and discharged 03/28/24. CT in Sept showed pseudocyst/area of walled off necrosis of the pancreatic body and tail. Pain has been fairly well-controlled since then and usually takes tramadol as needed however today it did not help with her pain. In the ED patient found have a lipase of 733, white blood cell count 13.8, and lab workup otherwise unremarkable. Pt had CT in ED w/ evidence of acute pancreatitis. Patient started on IV fluids, given pain medication and hospitalist contacted for admission. Patient evaluated at bedside, reports she been in her usual health until she woke up this morning with epigastric abdominal pain that radiates towards the left and nausea with vomiting. No diarrhea, does report symptoms are feeling somewhat better with treatment in the ED though still uncomfortable and somewhat nauseous. Only other acute complaint is some right sided rib pain which she got when she was roughhousing with significant other and kids and fell into her dresser, she reports this was on Wednesday. No other new or acute complaints. Reports smoking 2 cigarettes a day, has not used marijuana in several weeks per patient, no alcohol use. [facility] Medical History Acute pancreatitis Cannabis use disorder Choledocholithiasis Anemia Tobacco use Pancreatitis IBS (irritable bowel syndrome) Home Medications ?Medication ?Instructions ?Recorded ?Last Taken ?Type Lactobacillus acidophilus 500 500 mmu cells PO BID [facility] 01/12/24 01/12/24 History million cell capsule albuterol sulfate 90 mcg/actuation 1 - 2 puff inhalation Q6H PRN 01/12/24 Unknown History aerosol inhaler ASTHMA omeprazole 40 mg capsule,delayed 40 mg PO DAILY GERD 30 days #30 01/15/24 Unknown Rx release caps acetaminophen 500 mg tablet 1,000 mg (2 x 500 mg) PO Q8 #0 tabs 03/18/24 Unknown Rx ursodiol 300 mg capsule 300 mg PO TID #90 caps 03/18/24 Unknown Rx sennosides 8.6 mg-docusate sodium 1 tab-cap PO BID 03/26/24 Unknown History 50 mg capsule (Senna Plus) prochlorperazine maleate 10 mg 10 mg PO Q6H PRN nausea and 03/28/24 Unknown Rx tablet (Compazine) vomiting #30 tabs sucralfate 100 mg/mL oral 10 ml PO TID #1,000 mL 03/31/24 Unknown Rx suspension dicyclomine 20 mg tablet 20 mg PO TID #90 tabs 04/04/24 Unknown Rx tramadol 100 mg tablet 100 mg PO Q6H PRN pain #60 tabs 04/10/24 Unknown Rx folic acid 1 mg tablet 1 mg PO DAILY SUPPLEMENT #30 tabs 04/17/24 Unknown Rx thiamine HCl (vitamin B1) 100 mg 100 mg PO DAILY SUPPLEMENT #30 04/17/24 Unknown Rx tablet tabs docusate sodium 100 mg capsule 100 mg PO DAILY #30 caps 05/09/24 Unknown Rx Allergy/AdvReac Type Severity Reaction Status Date / Time codeine AdvReac Intermediate Vomiting Verified 05/09/24 13:25 Family History Mother Diabetes Asthma Thyroid disorder IBS (irritable bowel syndrome) Father Diabetes Hypertension Surgical History Previous section S/P ERCP History of cholecystectomy Social History household members: significant other and children Smoking Status: Light Smoker (<10/day) alcohol intake: never details: no alcohol substance use type: marijuana ROS ROS Narrative General: Denies fever/chills HENT: Denies headache, denies stuffy nose, denies sore throat EYES: Denies changes in vision Resp: Denies cough, denies shortness of breath Cardiac: Denies chest pain GI: Epigastric abdominal pain rating towards left, denies changes in bowel, patient with some nausea and vomiting : Denies changes in urination Extremity: Denies swelling MSK: Denies weakness, has some pain on ribs on right mid posterior chest wall Neuro: Denies any numbness/tingling Heme: Little bit of bruising on posterior ribs Skin: Denies rashes Psychiatric: No complaints voiced Vital Signs Vital Signs Vital Signs: 05/09/24 13:25 05/09/24 16:18 05/09/24 18:22 Temperature 96.5 F L 98.3 F Temperature Source Temporal Pulse Rate 103 H 75 80 Respiratory Rate 20 H 18 Blood Pressure 105/73 118/86 H 111/78 Blood Pressure Mean 83 96 89 Pulse Ox 98 97 Oxygen Delivery Method Room Air Weight Weight: 60.464 kg Body Mass Index (BMI) 24.3 Physical Exam Narrative General: Alert, oriented HEENT: Atraumatic, normocephalic Eyes: Anicteric, normal conjunctiva, extraocular movements grossly intact Neck: Supple Respiratory: Clear to auscultation bilaterally, normal respiratory effort Cardiovascular: Regular rate and rhythm GI: Soft, nondistended, tender particularly in epigastric region Extremities: No edema Musculoskeletal: Moving all extremities Neuro: No overt focal neurological deficits Skin: No rashes appreciated Psych: Cooperative Results Lab / Micro Data 05/09/24 13:40 05/09/24 13:40 Labs: Laboratory Results - last 24 hr 05/09/24 13:40: WBC 13.8 H, RBC 4.48, Hgb 13.2, Hct 40.1, MCV 89.5, MCH 29.5, MCHC 32.9, RDW Std Deviation 45.6 H, RDW Coeff of Mercedes 14.2, Plt Count 378, MPV 11.7, Immature Gran % (Auto) 0.700, Neut % (Auto) 79.4 H, Lymph % (Auto) 15.4 L, [place] % (Auto) 3.3, Eos % (Auto) 0.8, Baso % (Auto) 0.4, Absolute Neuts (auto) 11.0 H, Absolute Lymphs (auto) 2.12, Nucleated RBC % 0, Sodium 135 L, Potassium 4.2, Chloride 102, Carbon Dioxide 25.0, Anion Gap 8, BUN 10, Creatinine 0.53 L, Estim Creat Clear Calc 130.50, Est GFR (MDRD) Af Amer 172, Est GFR (MDRD) Non-Af 142, BUN/Creatinine Ratio 18.9, Glucose 119 H, Calcium 9.1, Total Bilirubin 0.80, AST 25, ALT 40, Alkaline Phosphatase 153 H, Total Protein 7.6, Albumin 3.3, Globulin 4.3 H, Albumin/Globulin Ratio 0.8 L, Lipase 733 H 05/09/24 16:16: Serum , Qual NEGATIVE Imaging Radiology Impression Abdomen/Pelvis CT 05/09/24 15:32 IMPRESSION: 1. Significant soft tissue stranding and edema involving the pancreas including the head and uncinate process neck and portion of the body consistent with acute pancreatitis. Scattered lymph nodes are present within the pancreatic bed. No abscess or free air. 2. Stable appearance of a small cyst within the pancreatic body measuring approximately 1.5 x 1.4 cm. 3. Stable appearance of a small encapsulated fluid collection along the LEFT diaphragmatic shira. 4. No evidence of bowel obstruction. Normal appearance of the appendix. 5. Status post cholecystectomy without evidence of ductal dilatation. 6. No evidence of renal calcification or obstructive uropathy. 7. Diffuse hepatic steatosis. Electronically Signed: Abdoul Philip MD at 17:32 EDT , Assessment & Plan Assessment/Plan (1) Acute on chronic pancreatitis: PLAN: Plan #Acute on chronic pancreatitis -Abd pain: Epigastric in nature -Lipase 733 -CT abd/pelvis with soft tissue stranding and edema involving the pancreas including the head and uncinate process consistent with acute pancreatitis. No abscess or free air. Stable small cyst in pancreatic body and stable appearance of small encapsulated collection along left diaphragmatic crux -LFTs: Alk phos 153, AST and ALT within normal limits -NPO -IVF -Pain Control -Given patient's multiple recurrences we will consult gastroenterology as well, patient known to service #GERD -Continue PPI #Tobacco use -Advise cessation -Nicotine replacement available if desired #DVT ppx: SCDs Jessi Ayers MD Charges/Coding Visit Charges Inpatient E&M: 01810 Init Hosp L1
[2024-05-09 19:32] VITALS: BP 107/83; PULSE 80; RESP 18; O2SAT 94
--- OUTSIDE RECORDS SUMMARY | 2024-05-09 19:40 | XMS RPT_ITS | CCD ---
Author Organization [facility] Care Team Providers Care Plant Ecologist Name Role Phone VICTORINO JONES DO Primary Care Physician [phone] PHYSICIAN, NONE Primary Care Physician Unavailab Augustin Rounding Nurse, Lucian Unavailable Shanita Styles Unavailable Unavailable BERNARDA GUZMAN Primary Care Physician He Berry Attending Unavailable Victorino Jones DO Primary Care Provider Jose Mcghee Unavailable GEORGINA MOLINA MD Consulting Unavailable GEORGINA MOLINA MD Attending Unavailable GEORGINA MOLINA MD Referring Unavailable SAMM JOY Admitting Unavaila [facility] PHYSICIAN, NONE Primary Care Unavailable BIJAL [facility] G[facility] Consulting Unavail able BERNARDA LEONARDO Primary Care Unavailable RICCO GAY, JUICE Attending Unavailable GEORGINA MOLINA MD Admitting Unavailable BERNARDA LEONARDO Primary Care Unavailable JUICE CHACKO MD Attending Unavailable BERNARDA LEONARDO Primary Care Unavailable JOSE MCGHEE DO Attending Unavailable BERNARDA LEONARDO Primary Care Unavailable VICTORINO JONES DO Attending Unavailable VICTORINO JONES Primary Care Unavailable REJI THOMPSON Admitting Unavailable REJI THOMPSON Attending Unavailable LOYDA REDDY Consulting Unavailable BERNARDA GUZMAN Primary Care KATINA Atkins MD Attending Unavailable BERNARDA GUZMAN Primary Care DILAN Gonsales Consulting Unavailable PHAN GAY, DR CACERES Attending Unavailab irving Allergies Allergy Classification Reported Allergen(s) Allergy Type Date of Onset Reaction(s) Facility (11 sources) Codeine; Translations: [codeine] Drug Allergy Nausea (finding) [facility] [employer] Work Phone: (20 sources) Morphine And Codeine Propensity to adverse reactions Nausea And Vomiting [facility] Medications Current Medications Medication Drug Class(es) Dates Sig (Normalized) Sig (Original) acetaminophen 500 mg oral tablet (7 sources) Start: 03-08-2024 End: 03-18-2024 take 2 tablets by mouth every eight hours acetaminophen (Tylenol) 500 MG tablet Take 2 tablets (1,000 mg) by mouth in the morning and 2 tablets (1,000 mg) at noon and 2 tablets (1,000 mg) before bedtime. Do all this for 10 days. 30 tablet 03/08/2024 03/18/2024 Active Start: 03-05-2024 End: 03-08-2024 take 1 tablet by mouth every eight hours 1,000 mg, Oral, Every 8 hours, First dose (after last modification) on 03/05/24 at 0015, Maximum dose of acetaminophen is 4000 mg from all sources in 24 hours. Start: 01-07-2024 Tylenol Oral, 0 Refill(s) Start Date: 01/07/24 Status: Ordered acetaminophen 325 mg / HYDROcodone bitartrate 5 mg oral tablet (1 source) Opioid Agonist Start: 07-10-2021 End: 07-13-2021 take 1 tablet by mouth every six hours as needed for pain [place] 325- 5 mg oral tablet Dose = 1 tab(s), Oral, q6h, PRN as needed for pain, # 12 tab(s), 0 Refill(s), Contusion of arm, 63.1 Start Date: 07/10/21 Stop Date: 07/13/21 Status: Ordered acetaminophen 325 mg / oxyCODONE hydrochloride 5 mg oral tablet (1 source) Opioid Agonist Start: 12-02-2023 End: 12-05-2023 Percocet 5 mg-325 mg oral tablet Dose = 1 tab(s), Oral, q6hr, PRN Pain, scale 7-10, X 3 day(s), # 6 tab(s), 0 Refill(s), Pharmacy: [facility] #[id number], Pancreatitis, 157.5, cm, 11/28/23 20:04:00 EDT, Height, 81.4, kg, 11/28/23 20:04:00 EDT, Dosing Weight Start Date: 12/02/23 Stop Date: 12/05/23 Status: Ordered Acidophilus Extra Strength oral capsule (4 sources) Start: 12-08-2023 take 1 capsule by mouth twice daily Acidophilus Extra Strength oral capsule Dose = 1 cap(s), Oral, BID, # 60 cap(s), 1 Refill(s), [facility]: [facility] #[id number], Ileus, 157.5, cm, 12/08/23 12:22:00 EDT, Height, kg, 12/08/23 12:22:00 EDT, Dosing Weight Start Date: 12/08/23 Status: Ordered albuterol MDI (90 mcg/inh) CFC free inhalation aerosol (17 sources) Start: 03-23-2024 take 2 puff(s) by inhalation every four hours albuterol MDI (90 mcg/inh) CFC free inhalation aerosol 2 puff(s), Inhalation, q4h, # 18 gram(s), 0 Refill(s) Start Date: 03/23/24 Status: Ordered Start: 09-01-2021 End: 10-01-2021 take 2 puff(s) by inhalation every six hours albuterol MDI (90 mcg/inh) CFC free inhalation aerosol 2 puff(s), Inhalation, q6h, # 18 gram(s), 0 Refill(s), [facility]acy: [facility] [address] Acute URI Fever, 160, cm, 09/01/21 15:01:00 EST, Height, kg, 09/01/21 15:01:00 EST, Dosing Weight Start Date: 09/01/21 Stop Date: 10/01/21 Status: Ordered Start: 03-07-2021 take 2 puff(s) by in halation every four hours as needed for wheezing albuterol MDI (90 mcg/inh) CFC free inhalation aerosol 2 puff(s), Inhalation, q4h, PRN as needed for wheezing, # 18 gram(s), 0 Refill(s), [facility]acy: [facility] URI with cough and congestion Encounter by telehealth for suspected COVID-19, 155, cm, 03/07/21 8:53:00 EDT, Height, kg, 03/07/21 8:53:00 EDT, Dosing Weight Start Date: 03/07/21 Status: Ordered Start: 03-07-2021 take 2 puff(s) by in halation every four hours as needed for wheezing albuterol MDI (90 mcg/inh) CFC free inhalation aerosol 2 puff(s), Inhalation, q4h, PRN as needed for wheezing, # 18 gram(s), 0 Refill(s), Pharmacy: [address], URI with cough and congestion Encounter by telehealth for suspected COVID-19, 155, cm, 03/07/21 8:53:00 EDT, Height, kg, 03/07/21 8... Start Date: 03/07/21 Status: Ordered azithromycin 250 mg oral tablet (2 sources) Macrolide Antimicrobial Start: 09-04-2021 End: 09-09-2021 Zithromax 250 mg oral tablet Dose : 250 mg = 1 tab(s), Oral, qDay, follow directions on Z-Brian, X 5 day(s), # 6 tab(s), 0 Refill(s), 09/09/21 16:46:00 EST, Pharmacy: [address], URI with cough and congestion, 157, cm, 09/04/21 16:18:00 EST, Height, 65.9, kg, 09/04/21... Start Date: 09/04/21 Stop Date: 09/09/21 Status: Ordered cetirizine hydrochloride 10 mg oral tablet (1 source) Histamine-1 Receptor Antagonist Start: 04-03-2021 Zyrtec 10 mg oral tablet Dose : 10 mg = 1 tab(s), Oral, qDay, # 30 tab(s), 1 Refill(s), Pharmacy: [address], Seasonal allergies Acute URI, 155, cm, 03/07/21 8:53:00 EDT, Height, kg, 03/07/21 8:53:00 EDT, Dosing Weight Start Date: 04/03/21 Status: Ordered CoQ10 100 mg oral capsule (1 source) Start: 12-08-2023 take 1 mg by mouth once daily CoQ10 100 mg oral capsule mg = cap(s), Oral, qDay, 0 Refill(s) Start Date: 12/08/23 Status: Ordered dexamethasone 6 mg oral tablet (2 sources) Corticosteroid Start: 09-01-2021 End: 09-11-2021 dexamethasone 6 mg oral tablet Dose : 6 mg = 1 tab(s), Oral, qDay, X 10 day(s), # 10 tab(s), 0 Refill(s), 09/11/21 15:25:00 EST, [facility]acy: [facility] Acute URI, 160, cm, 09/01/21 15:01:00 EST, Height, kg, 09/01/21 15:01:00 EST, Dosing Weight Start Date: 09/01/21 Stop Date: 09/11/21 Status: Ordered dicyclomine hydrochloride 20 mg oral tablet (5 sources) Anticholinergic Start: 04-05-2024 End: 04-08-2024 dicyclomine 20 mg oral tablet Dose : 20 mg = 1 tab(s), Oral, QID, PRN As needed for abdominal discomfort, # 12 tab(s), 0 Refill(s) Start Date: 04/05/24 Stop Date: 04/08/24 Status: Ordered Start: 12-08-2023 End: 01-05-2024 dicyclomine 20 mg oral table t Dose : 20 mg = 1 tab(s), Oral, QID, # 56 tab(s), 1 Refill(s), [facility]: [facility] #[id number], Abdominal pain, 157.5, cm, 12/08/23 12:22:00 EDT, Height, kg, 12/08/23 12:22:00 EDT, Dosing Weight Start Date: 12/08/23 Stop Date: 01/05/24 Status: Ordered docusate sodium 50 mg / sennosides, jail 8.6 mg oral tablet (4 sources) Start: 03-05-2024 End: 03-08-2025 take 1 tablet by mouth twice daily senna-docusate sodium (Senokot-S) 8.6-50 MG tablet Take 1 tablet by mouth 2 times daily. 60 tablet 11 03/08/2024 03/08/2025 Active folic acid 1 mg oral tablet (7 sources) Start: 01-07-2024 End: 04-06-2024 folic acid 1 mg oral tablet Dose : 1 mg = 1 tab(s), Oral, qDay, # 30 tab(s), 2 Refill(s), Pharmacy: [facility] #[id number], Alcohol-induced pancreatitis, 159, cm, 01/07/24 13:34:00 EDT, Height, kg, 01/07/24 13:34:00 EDT, Dosing Weight Start Date: 01/07/24 Stop Date: 04/06/24 Status: Ordered Start: 12-02-2023 End: 01-01-2024 folic acid 1 mg oral tablet Dose : 1 mg = 1 tab(s), Oral, qDay, # 30 tab(s), 0 Refill(s), [facility] #[id number], 157.5, cm, 11/28/23 20:04:00 EDT, Height, kg, 11/28/23 20:04:00 EDT, Dosing Weight Start Date: 12/02/23 Stop Date: 01/01/24 Status: Ordered guaiFENesin 600 mg oral tablet (2 sources) Start: 09-01-2021 End: 09-11-2021 guaiFENesin 600 mg oral tablet, extended release Dose : 600 mg = 1 tab(s), Oral, q12h, X 10 day(s), # 20 tab(s), 0 Refill(s), 09/11/21 15:25:00 EST, [facility]acy: [facility] Acute URI, 160, cm, 09/01/21 15:01:00 EST, Height, kg, 09/01/21 15:01:00 EST, Dosing Weight Start Date: 09/01/21 Stop Date: 09/11/21 Status: Ordered ibuprofen 600 mg oral tablet (1 source) Nonsteroidal Anti-inflammatory Drug Start: 07-10-2021 ibuprofen 600 mg oral tablet Dose : 600 mg = 1 tab(s), Oral, QID, PRN as needed for pain, # 40 tab(s), 0 Refill(s) Start Date: 07/10/21 Status: Ordered ketorolac tromethamine 10 mg oral tablet (1 source) Nonsteroidal Anti-inflammatory Drug, Cyclooxygenase Inhibitor Start: 09-29-2021 End: 10-03-2021 ketorolac 10 mg oral tablet Dose : 10 mg = 1 tab(s), Oral, QID, PRN as needed for pain, not to exceed 40 mg/day and 5 days duration for all dose forms, X 4 day(s), # 16 tab(s), 0 Refill(s), 10/03/21 22:00:00 EDT Start Date: 09/29/21 Stop Date: 10/03/21 Status: Ordered magnesium oxide 400 mg oral tablet (3 sources) Start: 02-07-2024 End: 04-07-2024 take 0.5 tablet by mouth once daily magnesium oxide 400 mg oral tablet 0.5 tab, Oral, qDay, X 30 day(s), # 15 tab(s), 1 Refill(s), 04/07/24 1:52:00 PM EDT, [facility]acy: [facility] #[id number], 159, cm, 02/07/24 13:10:00 EDT, Height, kg, 02/07/24 12:56:00 EDT, Dosing Weight Start Date: 02/07/24 Stop Date: 04/07/24 Status: Ordered Melatonin (4 sources) Start: 12-08-2023 melatonin 10 to 20mg at bedtime, 0 Refill(s) Start Date: 12/08/23 Status: Ordered Start: 12-08-2023 melatonin 0 Re fill(s) Start Date: 12/08/23 Status: Ordered omeprazole 40 mg delayed release oral capsule (3 sources) Proton Pump Inhibitor Start: 01-10-2024 End: 01-04-2025 omeprazole 40 mg oral delayed release capsule Dose : 40 mg = 1 cap(s), Oral, qDay, # 90 cap(s), 3 Refill(s), [facility]: [facility] #[id number], Abdominal pain Early satiety, 159, cm, 01/07/24 13:34:00 EDT, Height, kg, 01/07/24 13:34:00 EDT, Dosing Weight Start Date: 01/10/24 Stop Date: 01/04/25 Status: Ordered oxyCODONE hydrochloride 5 mg oral tablet (8 sources) Opioid Agonist Start: 03-08-2024 End: 03-08-2024 take 1 tablet by mouth every six hours as needed for pain oxyCODONE (Roxicodone) 5 MG immediate release tablet Indications: Acute pancreatitis, unspecified complication status, unspecified pancreatitis type Take 1 tablet (5 mg) by mouth every 6 hours as needed for moderate pain (4-6) for up to 20 doses. 20 tablet 03/08/2024 Active Start: 03-05-2024 End: 03-08-2024 take 1 tablet by mouth every four hours as needed for pain oxyCODONE (Roxicodone) immediate release tablet 5 mg Start: 03-04-2024 End: 03-04-2024 take 5 mg by mouth once 5 mg, Oral, Once, On Sat 02/16 02/08 at 2014, For 1 dose Start: 03-04-2024 End: 03-04-2024 take 5 mg by mouth once 5 mg, Oral, Once, On Sat 02/16 02/08 at 2014, For 1 dose Protonix (2 sources) Proton Pump Inhibitor Start: 11-28-2023 Protonix Dose : 40 mg =, IV Push, qDayAC, 0 Refill(s) Start Date: 11/28/23 Status: Ordered polyethylene glycol 3350 35404 mg powder for oral solution (4 sources) Osmotic Laxative Start: 03-04-2024 End: 03-15-2024 polyethylene glycol, PEG, 3350 (Glycolax) 17 GM/SCOOP powder Take 17 g by mouth daily for 3 days. 119 g 03/08/2024 03/15/2024 Active Probiotic (1 source) Start: 12-08-2023 Probiotic 0 Refill(s) Start Date: 12/08/23 Status: Ordered prochlorperazine 10 mg oral tablet (4 sources) Phenothiazine Start: 03-08-2024 End: 03-16-2024 take 1 tablet by mouth every six hours as needed for nausea and vomiting prochlorperazine (Compazine) 10 MG tablet Take 1 tablet (10 mg) by mouth every 6 hours as needed for nausea or vomiting for up to 7 days. 30 tablet 03/08/2024 03/16/2024 Active Start: 03-05-2024 End: 03-08-2024 take 1 tablet by mouth every six hours as needed for nausea and vomiting prochlorperazine (Compazine) tablet 10 mg simethicone 80 mg chewable tablet (1 source) Start: 12-08-2023 End: 12-22-2023 simethicone 80 mg oral table t, chewable Dose : 80 mg = 1 tab(s), Chewed, QID, PRN as needed for gas, X 14 day(s), # 48 tab(s), 0 Refill(s), 12/22/23 3:56:00 PM EDT, [facility]acy: [facility] #[id number], Abdominal pain Ileus, 157.5, cm, 12/08/23 12:22:00 EDT, Height, kg, 12/08/23 12:22:00 EDT, Dosing Weight Start Date: 12/08/23 Stop Date: 12/22/23 Status: Ordered Vitamin B1 100 mg oral table t (5 sources) Start: 01-07-2024 End: 04-06-2024 Vitamin B1 100 mg oral table t Dose : 100 mg = 1 tab(s), Oral, qDay, take 1 tablet by mouth once daily, X 30 day(s), # 30 tab(s), 2 Refill(s), 04/06/24 2:17:00 PM EDT, Pharmacy: [facility] #[id number], Alcohol-induced pancreatitis, 159, cm, 01/07/24 13:34:00 EDT, Height, kg, 01/07/24 13:34:00 EDT, Dosing Weight Start Date: 01/07/24 Stop Date: 04/06/24 Status: Ordered Start: 12-02-2023 End: 01-01-2024 Vitamin B1 100 mg oral table t Dose : 100 mg = 1 tab(s), Oral, qDay, X 30 day(s), # 30 tab(s), 0 Refill(s), 01/01/24 10:59:00 AM EDT, Pharmacy: [facility] #[id number], 157.5, cm, 11/28/23 20:04:00 EDT, Height, kg, 11/28/23 20:04:00 EDT, Dosing Weight Start Date: 12/02/23 Stop Date: 01/01/24 Status: Ordered Completed/Discontinued Medications Medication Drug Class(es) Dates Sig (Normalized) Sig (Original) albuterol 0.833 mg/ml / ipratropium bromide 0.167 mg/ml inhalation solution (4 sources) Anticholinergic , beta2-Adrenergi c Agonist Start: 03-06-2024 End: 03-08-2024 3 mL, Nebulization, Every 12 hours scheduled (2 times per day), First dose (after last modification) on Wed03/07/24 at 2100 calcium chloride 0.0014 meq/ml / potassium chloride 0.004 meq/ml / sodium chloride 0.103 meq/ml / sodium lactate 0.028 meq/ml injectable solution (2 sources) Start: 03-04-2024 End: 03-07-2024 take 150 mL intravenously every hour 150 mL/hr, IntraVENous, Continuous, Starting on Wed03/04/24 at 1620 0.4 ml enoxaparin sodium 100 mg/ml prefilled syringe (2 sources) Low Molecular Weight Heparin Start: 03-04-2024 End: 03-08-2024 inject 40 mg by subcutaneous injection every twenty-four hours 40 mg, SubCUTAneous, Every 24 hours scheduled (Daily), First dose on Wed03/04/24 at 2000, Indication of Use: Prophylaxis-DVT/PE, Indications: Prophylaxis of Venous Thromboembolism 1 ml HYDROmorphone hydrochloride 1 mg/ml cartridge (8 sources) Opioid Agonist Start: 03-07-2024 End: 03-07-2024 take 0.25 mg by mouth once 0.25 mg, IntraVENous, Once, On Wed03/07/24 at 1230, For 1 dose, If oral and IV narcotics ordered, use oral first and only use IV if oral is ineffective or cannot take oral. Do Not give oral and IV within 1 hour of each other unless specifically ordered. Start: 03-07-2024 End: 03-07-2024 take 0.5 mg intravenously every eight hours as needed for pain 0.5 mg, IntraVENous, Every 8 hours PRN, severe pain (7-10), second line, Starting on Wed03/07/24 at 1133, If oral and IV narcotics ordered, use oral first and only use IV if oral is ineffective or cannot take oral. Do Not give oral and IV within 1 hour of each other unless specifically ordered. Start: 03-05-2024 End: 03-08-2024 take 0.5 mg intravenously every four hours as needed for pain 0.5 mg, IntraVENous, Every 4 hours PRN, severe pain (7-10), second line, Starting on Wed03/07/24 at 2011, If oral and IV narcotics ordered, use oral first and only use IV if oral is ineffective or cannot take oral. Do Not give oral and IV within 1 hour of each other unless specifically ordered. iopamidol (Isovue-370) 76 % injection 75 mL (2 sources) Start: 03-04-2024 End: 03-04-2024 take 75 mL intravenously once as needed 75 mL, IntraVENous, IMG once PRN, contrast, Starting on 03/04/24 at 1727, For 1 dose Magnesium (3 sources) Start: 02-07-2024 MAGNESIUM 200 MG TABLET MAGNESIUM 200 MG TABLET, one daily, 0 Refill(s), 66.6 Start Date: 02/07/24 Status: Ordered 100 ml magnesium sulfate 40 mg/ml injection (2 sources) Start: 03-06-2024 End: 03-06-2024 4,000 mg, IntraVENous, at 25 mL/hr, Administer over 4 Hours, Once, On Wed03/06/24 at 0700, For 1 dose, Recommended infusion rate not to exceed 1,000 mg (milligrams) per hour. 2 ml metoclopramide 5 mg/ml prefilled syringe (5 sources) Dopamine-2 Receptor Antagonist Start: 03-04-2024 End: 03-04-2024 10 mg, IntraVENous, Once, On 03/04/24 at 1525, For 1 dose Start: 02-07-2024 metoclopramide 10 mg oral tablet Dose : 10 mg = 1 tab(s), Oral, q8h, PRN Nausea/Vomiting, 0 Refill(s) Start Date: 02/07/24 Status: Ordered 1 ml morphine sulfate 4 mg/ml cartridge (4 sources) Opioid Agonist Start: 03-04-2024 End: 03-04-2024 take 1 dose by mouth every hour 4 mg, IntraVENous, Once, On 03/04/24 at 1525, For 1 dose, If oral and IV narcotics ordered, use oral first and only use IV if oral is ineffective or cannot take oral. Do Not give oral and IV within 1 hour of each other unless specifically ordered. naloxone (Narcan) 0.4 mg in 0.9% sodium chloride 10 mL syringe (2 sources) Start: 03-04-2024 End: 03-08-2024 IntraVENous, PRN, opioid reversal, Starting on 03/04/24 at 1615, PRN if respiratory rate is less than 6/min and patient is difficult to arouse then notify physician STAT. Mix 9 mL of sodium chloride 0.9% with 0.4 mg (1 mL) of naloxone (NARCAN) in 10 mL syringe. (Note: dilution is 0.04 mg/mL) Give 0.08 mg (2 mL of special dilution), slow IV push, repeat up to 0.4 mg (10 mL) or until patient is responsive to physical stimulation and respiratory rate is equal to or greater than 6 breaths/min. Continue to observe, if no response within 3 minutes of administration of 0.4 mg (10 mL) total, repeat dose (0.4 mg as administered previously). Nicotine (2 sources) Cholinergic Nicotinic Agonist Start: 03-06-2024 End: 03-08-2024 nicotine (Nicoderm, Step 1) 21 MG/24HR patch 1 patch 2 ml ondansetron 2 mg/ml injection (2 sources) Serotonin-3 Receptor Antagonist Start: 03-04-2024 End: 03-04-2024 4 mg, IntraVENous, Once, On Wed03/04/24 at 1320, For 1 dose Zosyn (1 source) Penicillin-class Antibacterial, beta Lactamase Inhibitor Start: 11-28-2023 Zosyn Dose : 3.375 gram(s) =, IV Piggyback, q8h, 0 Refill(s), 70.9 Start Date: 11/28/23 Status: Ordered microencapsulated potassium chloride 10 meq extended release oral tablet (7 sources) Start: 03-07-2024 End: 03-07-2024 40 mEq, Oral, Once, On Wed03/07/24 at 0800, For 1 dose, Best given with food and plenty of water to minimize gastric irritation. Do not crush or chew. Start: 03-06-2024 End: 03-06-2024 40 mEq, IntraVENous, at 125 mL/hr, Administer over 4 Hours, Once, On Wed03/06/24 at 0700, For 1 dose, Max infusion rate = 10 mEq/hr Start: 02-07-2024 End: 02-12-2024 Potassium Chloride (Eqv-Klor -Con M20) 20 mEq oral tablet, extended release Dose : 20 mEq = 1 tab(s), Oral, BID, # 10 tab(s), 0 Refill(s), Pharmacy: [facility] #[id number], 159, cm, 02/07/24 13:10:00 EDT, Height, kg, 02/07/24 12:56:00 EDT, Dosing Weight Start Date: 02/07/24 Stop Date: 02/12/24 Status: Ordered promethazine hydrochloride 25 mg rectal suppository (3 sources) Phenothiazine Start: 04-05-2024 End: 04-08-2024 promethazine 25 mg rectal suppository Dose : 25 mg = 1 supp, Rectal, q6hr, PRN as needed for nausea/vomiting, # 12 supp, 0 Refill(s) Start Date: 04/05/24 Stop Date: 04/08/24 Status: Ordered Start: 09-04-2021 End: 09-14-2021 Promethazine DM 6.25 mg-15 m g/5 mL oral syrup Dose = 5 mL, Oral, q6hr, PRN for cough, not to exceed 6 doses/day, X 10 day(s), # 200 mL, 0 Refill(s), [facility]: [facility] [facility], URI with cough and congestion, 157, cm, 09/04/21 16:18:00 EST, Height, kg, 09/04/21 16:18:00 EST, Dosing Weight Start Date: 09/04/21 Stop Date: 09/14/21 Status: Ordered 50 ml sodium chloride 9 mg/ml injection (2 sources) Start: 03-04-2024 End: 03-04-2024 1,000 mL, IntraVENous, at 1,000 mL/hr, Administer over 1 Hours, Once, On 03/04/24 at 1320, For 1 dose thiamine 100 mg oral tablet (2 sources) Start: 03-04-2024 End: 03-08-2024 take 100 mg by mouth once daily 100 mg, Oral, Daily, First dose on 03/04/24 at 1625 Problems Active Problems Problem Classification Problem Date Documented Da te Episodic/Chronic Abdominal pain (16 sources) Pain in pelvis; Translations: [Abdominal pain] 06-28-2019 Episodic Asthma (20 sources) Asthma; Translations: [Unspecified asthma, uncomplicated] Onset: 4 10-21-2017 Chronic Biliary tract disease (20 sources) Calculus of bile duct; Translations: [Calculus of bile duct without cholangitis or cholecystitis without obstruction] Onset: 4 Episodic Deficiency and other anemia (20 sources) Anemia; Translations: [Anemia, unspecified] Onset: 4 Episodic Esophageal disorders (20 sources) Gastroesophageal reflux disease without esophagitis; Translations: [Gastro-esophageal reflux disease without esophagitis] Onset: 4 Chronic Fluid and electrolyte disorders (2 sources) Hypo-osmolality and or hyponatremia; Translations: [Hypo-osmolality and hyponatremia] Episodic Intestinal obstruction without hernia (20 sources) Intestinal obstruction; Translations: [Ileus, unspecified] Onset: 4 Resolved: 4 Episodic Nausea and vomiting (1 source) Nausea; Translations: [Nausea] Onset: 4 Episodic Noninfectious gastroenteritis (2 sources) Noninfectious enteritis; Translations: [Noninfective gastroenteritis and colitis, unspecified] Onset: 4 Episodic Nonspecific chest pain (3 sources) Chest pain; Translations: [Chest pain, unspecified] Onset: 4 Episodic Other gastrointestinal disorders (4 sources) Irritable bowel syndrome 12-08-2023 Chronic Other gastrointestinal disorders (11 sources) Constipation 06-28-2019 Episodic Other gastrointestinal disorders (1 source) Ascites; Translations: [Other ascites] Episodic Other inflammatory condition of skin (11 sources) Erythema nodosum 02-13-2019 Episodic Other liver diseases (20 sources) Steatosis of liver; Translations: [Fatty (change of) liver, not elsewhere classified] Onset: 4 Chronic Other lower respiratory disease (1 source) Dyspnea; Translations: [Shortness of breath] Onset: 4 Episodic Other nutritional; endocrine; and metabolic disorders (4 sources) Hypomagnesemia 12-08-2023 Chronic Other upper respiratory disease (20 sources) Seasonal allergy; Translations: [Other seasonal allergic rhinitis] Onset: 4 04-03-2021 Chronic Other upper respiratory infections (20 sources) Acute upper respiratory infection; Translations: [Upper respiratory infection] 04-03-2021 Episodic Pancreatic disorders (not diabetes) (20 sources) Alcohol-induced acute pancreatitis; Translations: [Alcohol induced acute pancreatitis without necrosis or infection] Onset: 4 Episodic Pleurisy; pneumothorax; pulmonary collapse (20 sources) Pleural effusion; Translations: [Pleural effusion, not elsewhere classified] Onset: 4 Episodic Regional enteritis and ulcerative colitis (6 sources) Enteritis of small intestine 11-27-2023 Chronic Residual codes; unclassified (10 sources) Did not attend 09-04-2021 Episodic Comment on above: No-show for [facility] ent on September 04, 2021. Residual codes; unclassified (1 source) Tobacco user; Translations: [Tobacco use] Onset: 4 Episodic Spondylosis; intervertebral disc disorders; other back problems (11 sources) Backache with radiation 06-28-2019 Episodic Sprains and strains (1 source) Sprain of foot; Translations: [Unspecified sprain of unspecified foot, initial encounter] Onset: 2 Episodic Superficial injury; contusion (2 sources) Contusion of upper arm; Translations: [Contusion of unspecified upper arm, initial encounter] Onset: 1 Episodic Unclassified (11 sources) Suspected disease caused by 2019-nCoV 03-07-2021 Past or Other Problems Problem Classification Problem Date Documented Da te Episodic/Chronic Alcohol-related disorders (20 sources) Alcohol dependence; Translations: [Alcohol dependence, uncomplicated] Onset: 03-07-2024 Resolved: 03-07-2024 Chronic Results Test Name Value Interpretation Reference Range Facility .[facility] 04-05-2024 Basophil, Absolute 0.2 10 3/mcL Normal 0.0-0.2 [facility] Comment on above: Performed By: #### T CRISELDA VILLARREAL #### [facility] [address] [place], [place] [address] Basophils/100 WBC (Bld) 1.0 % Normal 0.0-2.5 [facility] Comment on above: Performed By: #### T CRISELDA VILLARREAL #### [address] [address] Eosinophil, Absolute 0.4 10 3/mcL Normal 0.0-0.4 [facility] Comment on above: Performed By: #### T PHIL, PBNP #### [address] [address] Eosinophils/100 WBC (Bld) 2.1 % Normal 0.0-7.0 [facility] Comment on above: Performed By: #### T PHIL, PBNP #### [address] [address] Lymphocyte, Absolute 4.3 10 3/mcL High 0.8-3.9 [facility] Comment on above: Performed By: #### T PHIL, PBNP #### [address] [address] Lymphocytes/100 WBC (Bld) 24.3 % Normal 10.0-50.0 [facility] Comment on above: Performed By: #### T PHIL, PBNP #### [address] [address] Monocyte, Absolute 0.8 10 3/mcL Normal 0.2-1.0 [facility] Comment on above: Performed By: #### T PHIL, PBNP #### [address] [address] Monocytes/100 WBC (Bld) 4.7 % Normal 1.7-13.0 [facility] Comment on above: Performed By: #### T PHIL, PBNP #### [address] [address] Neutrophils/100 WBC (Bld) 67.9 % Normal 37.0-80.0 [facility] Comment on above: Performed By: #### T PHIL, PBNP #### [address] [address] .GFRon 04-05-2024 GFR Non- 131 ml/min/1.73sqm Normal [facility] Comment on above: Result Comment: GFR Population mean for , Non- Americans Ages 20-29 = 116 mL/min/1.73 sq.m. Ages 30-39 = 107 mL/min/1.73 sq.m. Ages 40-49 = 99 mL/min/1.73 sq.m. Ages 50-59 = 93 mL/min/1.73 sq.m. Ages 60-69 = 85 mL/min/1.73 sq.m. Ages 70+ = 75 mL/min/1.73 sq.m. Chronic Kidney Disease: Less than 60 mL/min/1.73 square meters End Stage Renal Disease: Less than 15 mL/min/1.73 square meters Performed By: #### CRISELDA LUCIANO #### [address] [address] GFR 159 ml/min/1.73sqm Normal [facility] Comment on above: Result Comment: GFR Population mean for , Non- Americans Ages 20-29 = 116 mL/min/1.73 sq.m. Ages 30-39 = 107 mL/min/1.73 sq.m. Ages 40-49 = 99 mL/min/1.73 sq.m. Ages 50-59 = 93 mL/min/1.73 sq.m. Ages 60-69 = 85 mL/min/1.73 sq.m. Ages 70+ = 75 mL/min/1.73 sq.m. Chronic Kidney Disease: Less than 60 mL/min/1.73 square meters End Stage Renal Disease: Less than 15 mL/min/1.73 square meters Performed By: #### CRISELDA LUCIANO #### [address] [address] .MDWon 04-05-2024 Monocyte Distribution Width 19.41 Normal 0.00-20.00 [facility] Comment on above: Result Comment: For ED adult patients suspected of sepsis, MDW<=20.0 does not rule out sepsis or risk of sepsis Performed By: #### CRISELDA LUCIANO #### [address] [address] .Morphon 04-05-2024 Platelet Estimate Increased Normal [facility] Comment on above: Performed By: #### T PHIL PBNP #### [place] [address] .NEUABSon 04-05-2024 Neutrophil, Absolute 12.1 10 3/mcL High 2.9-6.2 [facility] Comment on above: Performed By: #### T PHIL PBNP #### [place] [address] .Urinalysis Microscopic (AO) on 04-05-2024 UA Amorphus 1+ /hpf Normal [facility] Comment on above: Performed By: #### P REGS #### [place] [address] UA Bacteria 2+ /hpf Abnormal [facility] Comment on above: Performed By: #### P REGS #### [place] [address] UA RBC 15-25 Abnormal None Seen [facility] Comment on above: Performed By: #### P REGS #### [place] [address] UA Squam Epithelial 5-10 Abnormal None Seen [facility] Comment on above: Performed By: #### P REGS #### [place] [address] UA WBC 15-25 Abnormal None Seen [facility] Comment on above: Performed By: #### P REGS #### [place] [address] 36on 04-05-2024 36 Appointment confirmed 04/28/[address] Zambrano [facility] 36 Name of caller: Feroz Contact phone number: [phone] (Feroz's cell), (Mother's cell) Relationship to Patient: patient Provider: Dr. Zambrano Practice: [facility] Chief Complaint/Reason for Call: Feroz is requesting a call back to reschedule and confirm her appointment with Dr. Zambrano. She also states that she gives permission to schedule the visit with her mother. Please contact Feroz and advise. Best time of day caller can be reached: Any Patient advised that office/PCP has 24-48 business hours to return their call: Yes Normal [facility] CBCon 04-05-2024 Erythrocyte distribution width (RBC) [Ratio] 15.1 % High 11.5-14.5 [facility] Comment on above: Performed By: #### T CRISELDA VILLARREAL #### [address] [address] Hematocrit (Bld) [Volume fraction] 42.8 % Normal 37.0-47.0 [facility] Comment on above: Performed By: #### CRISELDA LUCIANO #### [address] [address] Hgb 14.3 G/dL Normal 12.0-16.0 [facility] Comment on above: Performed By: #### GOMEZ LUCIANONP #### [address] [address] MCH (RBC) [Entitic mass] 29.9 pg Normal 27.0-31.2 [facility] Comment on above: Performed By: #### CRISELDA LUCIANO #### [address] [address] MCHC 33.3 G/dL Normal 33.0-37.0 [facility] Comment on above: Performed By: #### GOMEZ LUCIANONP #### [address] [address] MCV (RBC) [Entitic vol] 89.6 fL Normal 80.0-94.0 [facility] Comment on above: Performed By: #### GOMEZ LUCIANONP #### [address] [address] Platelet 696 10 3/mcL High 130-400 [facility] Comment on above: Performed By: #### CRISELDA LUCIANO #### [address] [address] Platelet mean volume (Bld) [Entitic vol] 8.7 fL Normal 7.4-10.4 [facility] Comment on above: Performed By: #### T CRISELDA VILLARREAL #### [address] [address] RBC 4.78 10 6/mcL Normal 4.20-5.40 [facility] Comment on above: Performed By: #### GOMEZ LUCIANONP #### [address] [address] WBC 17.9 10 3/mcL High 4.6-10.8 [facility] Comment on above: Performed By: #### CRISELDA LUCIANO #### [address] [address] CMPon 04-05-2024 Albumin Level 3.1 G/dL Low 3.5-5.0 [facility] Comment on above: Performed By: #### CRISELDA LUCIANO #### [address] [address] Albumin/Globulin [Mass ratio] 0.8 {ratio} Low 1.1-2.5 [facility] Comment on above: Performed By: #### CRISELDA LUCIANO #### [address] [address] ALP [Catalytic activity/Vol] 166 U/L High 40-135 [facility] Comment on above: Performed By: #### GOMEZ LUCIANONP #### [address] [address] ALT [Catalytic activity/Vol] 27 U/L Normal 14-59 [facility] Comment on above: Performed By: #### CRISELDA LUCIANO #### [address] [address] AST [Catalytic activity/Vol] 34 U/L Normal 10-40 [facility] Comment on above: Performed By: #### CRISELDA LUCIANO #### [address] [address] Bili Total 0.5 mg/dL Normal 0.2-1.0 [facility] Comment on above: Result Comment: Use of this assay is not recommended for patients undergoing treatment with eltrombopag due to the potential for falsely elevated results. Performed By: #### GOMEZ LUCIANONP #### [address] [address] BUN/Creatinine Ratio 19 ratio Normal 7-27 [facility] Comment on above: Performed By: #### T GOMEZ VILLARREALNP #### [address] [address] Calcium [Mass/Vol] 9.4 mg/dL Normal 8.4-10.2 [facility] Comment on above: Performed By: #### GOMEZ LUCIANONP #### [address] [address] Chloride [Moles/Vol] 100 mmol/L Normal 98-107 [facility] Comment on above: Performed By: #### GOMEZ LUCIANONP #### [address] [address] CO2 [Moles/Vol] 28 mmol/L Normal 22-29 [facility] Comment on above: Performed By: #### GOMEZ LUCIANONP #### [address] [address] Creatinine [Mass/Vol] 0.54 mg/dL Low 0.55-1.02 [facility] Comment on above: Result Comment: Test ing performed on Siemens Dimension EXL analyzer using a modified kinetic Nanette technique. Performed By: #### T CRISELDA VILLARREAL #### [address] [address] Electrolyte Balance 9.0 mEq/L Normal 4.0-15.0 [facility] Comment on above: Performed By: #### GOMEZ LUCIANONP #### [address] [address] Globulin 4.1 G/dL Normal [facility] Comment on above: Performed By: #### T ROPHS, PBNP #### [address] [address] Glucose [Mass/Vol] 96 mg/dL Normal 70-105 [facility] Comment on above: Performed By: #### Stevie VILLARREAL, PBNP #### [address] [address] Potassium [Moles/Vol] 5.1 mmol/L Normal 3.5-5.1 [facility] Comment on above: Performed By: #### Stevie VILLARREAL, PBNP #### [address] [address] Sodium [Moles/Vol] 137 mmol/L Normal 136-145 [facility] Comment on above: Performed By: #### Stevie VILLARREAL, PBNP #### [address] [address] Total Protein 7.2 G/dL Normal 6.4-8.2 [facility] Comment on above: Performed By: #### Stevie VILLARREAL, PBNP #### [address] [address] Urea nitrogen [Mass/Vol] 10 mg/dL Normal 7-18 [facility] Comment on above: Performed By: #### Stevie VILLARREAL, PBNP #### [address] [address] [address] ABDOMEN/PELVIS W/O CONTRA STon 04-05-2024 CT ABDOMEN/PELVIS W/O CONTRAST ORIGINAL EXAMINATION: CT OF THE ABDOMEN AND PELVIS WITHOUT CONTRAST04/05/2024 9:58 pm TECHNIQUE: CT of the abdomen and pelvis was performed without the administration of intravenous contrast. Multiplanar reformatted images are provided for review. Automated exposure control, iterative reconstruction, and/or weight based adjustment of the mA/kV was utilized to reduce the radiation dose to as low as reasonably achievable. COMPARISON: CT abdomen pelvis 11/30/2023 and 11/27/2023. HISTORY: ORDERING SYSTEM PROVIDED HISTORY: Reason for Exam: Abdominal pain, N/V/D, h/o recurrent pancreatitis, FINDINGS: Trace left pleural effusion with adjacent mild atelectasis. The right lung bases clear. The heart is normal in size. Diffuse hypoattenuation of the liver, findings suggestive of hepatic steatosis and/or diffuse hepatocellular disease. Focal fatty infiltration adjacent to the falciform ligament. Cholecystectomy. The spleen and adrenal glands are within normal limits. Interval decrease in pancreatic edema, peripancreatic inflammatory fat stranding, and surrounding fluid when compared to 11/30/2023 exam. There is and organized focal area of low attenuation seen within the pancreatic body measuring approximately 1 cm in longest axial dimension (series 2, image 35). The kidneys are symmetric in size. No hydronephrosis. The ureters are normal in course and caliber. The urinary bladder appears unremarkable. The uterus appears within normal limits. The large and small bowel demonstrate no obstruction. Interval resolution of duodenal, jejunal and proximal ileal wall thickening. The appendix is not visualized. There is no pericecal inflammation. No free intraperitoneal gas is identified. Trace pelvic fluid. The aorta is normal in caliber. No abdominopelvic lymphadenopathy. There is no acute fracture or aggressive osseous lesion. No acute soft tissue abnormality. Small fat containing umbilical hernia. IMPRESSION: Interval decrease in pancreatic edema, peripancreatic inflammatory stranding, and surrounding fluid when compared to 11/30/2023. There is and organizing fluid collection seen within the pancreatic body measuring 1 cm, findings may represent pancreatic pseudocyst. Hepatic steatosis and/or diffuse hepatocellular disease. Trace left pleural effusion. Trace pelvic ascites, findings may be reactive. Preliminary Report was Dictated by a Resident I have personally reviewed all of the images of this examination and agree with the resident findings and interpretation. Interpreted by: Wenceslao Banegas MD Preliminary Report By: Johnathan Mix Electronically signed By Wenceslao Banegas MD Dictated Date: 04/05/2024 10:27:00 PM Prelim Date: 04/05/2024 10:45:07 PM Sign Date: 04/05/2024 11:24:58 PM Ordering Provider: KATINA Raza [facility] LABORATORYOrdered By: Shelia Helms on 04-05-2024 Appearance (U) Slightly Cloudy *ABN* (04/05/24 9:15 PM) Invalid Interpretation Code Clear AO Auto Urine SS Bacteria LM.HPF (Urine sed) [#/Area] 2 /[HPF] Invalid Interpretation Code AO Auto Urine SS Bilirubin Ql (U) Negative (04/05/24 9:15 PM) Normal Negative AO Auto Urine SS Color (U) Yellow (04/05/24 9:15 PM) Normal AO Auto Urine SS Crystals.amorphous LM.HPF (Urine sed) [#/Area] 1 /[HPF] Normal AO Auto Urine SS Glucose Test strip (U) [Mass/Vol] Negative Normal Negative AO Auto Urine SS HCG ( test) Ql Negative (04/05/24 9:15 PM) Normal AO Manual Urine SS Hemoglobin Auto test strip (U) [Mass/Vol] Large *ABN* (04/05/24 9:15 PM) Invalid Interpretation Code Negative AO Auto Urine SS Ketones Ql (U) Negative Normal Negative AO Auto Ur ine SS test (u) int Not detected Invalid Interpretation Code AO Manual Urine SS UA Leuk Est Moderate *ABN* (04/05/24 9:15 PM) Invalid Interpretation Code Negative AO Auto Urine SS UA Nitrite Negative (04/05/24 9:15 PM) Normal Negative AO Auto Urine SS UA pH 7.5 (04/05/24 9:15 PM) Normal 5.0 - 8.0 AO Auto Urine SS UA Protein Negative Normal Negative AO Auto Urine SS UA RBC 15-25 /HPF Invalid Interpretation Code None Seen AO Auto Urine SS UA Spec Grav 1.015 (04/05/24 9:15 PM) Normal 1.015-1.025 AO Auto Urine SS UA Specimen Type Void (04/05/24 9:15 PM) Normal AO Auto Urine SS UA Squam Epithelial 5-10 /HPF Invalid Interpretation Code None Seen AO Auto Urine SS UA Urobilinogen 0.2 E.U./dL Normal 0.2-1.0 AO Auto Urine SS WBC LM.HPF (Urine sed) [#/Area] 15-25 /HPF Invalid Interpretation Code None Seen AO Auto Urine SS LABORATORYOrdered By: SYSTEM SYSTEM on 04-05-2024 Albumin BCP dye [Mass/Vol] 3.1 G/dL Low 3.5 - 5.0 G/dL AO ADM SS Albumin/Globulin [Mass ratio] 0.8 {ratio} Low 1.1 - 2.5 ratio AO ADM SS ALP [Catalytic activity/Vol] 166 U/L High 40 - 135 U/L AO ADM SS ALT With P-5'-P [Catalytic activity/Vol] 27 U/L Normal 14 - 59 U/L AO ADM SS AST With P-5'-P [Catalytic activity/Vol] 34 U/L Normal 10 - 40 U/L AO ADM SS Basophils (Bld) [#/Vol] 0.2 103/mcL Normal 0.0 - 0.2 10^3/mcL AO Workflow SS Basophils/100 WBC (Bld) 1.0 % Normal 0.0 - 2.5 % AO Workflow SS Bilirubin [Mass/Vol] 0.5 mg/dL Normal 0.2 - 1 .0 mg/dL AO ADM SS Comment on above: Interpretive Data: U se of this assay is not recommended for patients undergoing treatment with eltrombopag due to the potential for falsely elevated results. Calcium [Mass/Vol] 9.4 mg/dL Normal 8.4 - 10. 2 mg/dL AO ADM SS Chloride [Moles/Vol] 100 mmol/L Normal 98 - 10 7 mmol/L AO ADM SS CO2 [Moles/Vol] 28 mmol/L Normal 22 - 29 mmol/L AO ADM SS Creatinine [Mass/Vol] 0.54 mg/dL Low 0.55 - 1.02 mg/dL AO ADM SS Comment on above: Interpretive Data: T esting performed on Siemens Dimension EXL analyzer using a modified kinetic Nanette technique. Electrolyte Balance 9.0 mEq/L Normal 4.0 - 15 .0 mEq/L AO ADM SS Eosinophil, Absolute 0.4 103/mcL Normal 0.0 - 0 .4 10^3/mcL AO Workflow SS Eosinophils/100 WBC (Bld) 2.1 % Normal 0.0 - 7.0 % AO Workflow SS Erythrocyte distribution width (RBC) [Ratio] 15.1 % High 11.5 - 14.5 % AO Workflow SS GFR/1.73 sq M.predicted among blacks MDRD (S/P/Bld) [Vol rate/Area] 159 ml/min/1.73sqm Invalid Interpretation Code AO Chemistry S Comment on above: Interpretive Data: GFR Population mean for , Non- Americans Ages 20-29 = 116 mL/min/1.73 sq.m. Ages 30-39 = 107 mL/min/1.73 sq.m. Ages 40-49 = 99 mL/min/1.73 sq.m. Ages 50-59 = 93 mL/min/1.73 sq.m. Ages 60-69 = 85 mL/min/1.73 sq.m. Ages 70+ = 75 mL/min/1.73 sq.m. Chronic Kidney Disease: Less than 60 mL/min/1.73 square meters End Stage Renal Disease: Less than 15 mL/min/1.73 square meters GFR/1.73 sq M.predicted among non-blacks MDRD (S/P/Bld) [Vol rate/Area] 131 ml/min/1.73sqm Invalid Interpretation Code AO Chemistry S Comment on above: Interpretive Data: GFR Population mean for , Non- Americans Ages 20-29 = 116 mL/min/1.73 sq.m. Ages 30-39 = 107 mL/min/1.73 sq.m. Ages 40-49 = 99 mL/min/1.73 sq.m. Ages 50-59 = 93 mL/min/1.73 sq.m. Ages 60-69 = 85 mL/min/1.73 sq.m. Ages 70+ = 75 mL/min/1.73 sq.m. Chronic Kidney Disease: Less than 60 mL/min/1.73 square meters End Stage Renal Disease: Less than 15 mL/min/1.73 square meters Globulin 4.1 G/dL Invalid Interpretation Code AO ADM SS Glucose [Mass/Vol] 96 mg/dL Normal 70 - 105 mg/dL AO ADM SS Hematocrit (Bld) [Volume fraction] 42.8 % Normal 37.0 - 47.0 % AO Workflow SS Hemoglobin (Bld) [Mass/Vol] 14.3 G/dL Normal 12.0 - 16.0 G/dL AO Workflow SS Lipase [Catalytic activity/Vol] 125 U/L High 16 - 77 U/L AO ADM SS Lymphocytes (Bld) [#/Vol] 4.3 103/mcL High 0.8 - 3.9 10^3/mcL AO Workflow SS Lymphocytes/100 WBC (Bld) 24.3 % Normal 10.0 - 50.0 % AO Workflow SS MCH (RBC) [Entitic mass] 29.9 pg Normal 27. 0 - 31.2 pg AO Workflow SS MCHC 33.3 G/dL Normal 33.0 - 37.0 G/dL AO Workflow SS MCV (RBC) [Entitic vol] 89.6 fL Normal 80.0 - 94.0 fL AO Workflow SS Monocyte distribution width Auto (Bld) [Entitic vol] 19.41 1 Normal 0.00 - 20.00 AO Workflow SS Comment on above: Result Comment: For ED adult patients suspected of sepsis, MDW<=20.0 does not rule out sepsis or risk of sepsis Monocytes (Bld) [#/Vol] 0.8 103/mcL Normal 0.2 - 1.0 10^3/mcL AO Workflow SS Monocytes/100 WBC (Bld) 4.7 % Normal 1.7 - 13.0 % AO Workflow SS Neutrophils (Bld) [#/Vol] 12.1 103/mcL High 2.9 - 6.2 10^3/mcL AO Workflow SS Neutrophils/100 WBC (Bld) 67.9 % Normal 37.0 - 80.0 % AO Workflow SS Platelet mean volume (Bld) [Entitic vol] 8.7 fL Normal 7.4 - 10.4 fL AO Workflow SS Platelets (Bld) [#/Vol] 696 103/mcL High 130 - 400 10^3/mcL AO Workflow SS Potassium [Moles/Vol] 5.1 mmol/L Normal 3.5 - 5.1 mmol/L AO ADM SS Protein [Mass/Vol] 7.2 G/dL Normal 6.4 - 8.2 G/dL AO ADM SS RBC (Bld) [#/Vol] 4.78 106/mcL Normal 4.20 - 5.4 0 10^6/mcL AO Workflow SS Sodium [Moles/Vol] 137 mmol/L Normal 136 - 145 mmol/L AO ADM SS Troponin I.cardiac DL <= 0.01 ng/mL [Mass/Vol] ng/L Normal 0 - 51 ng/L AO ADM SS Comment on above: Interpretive Data: H igh Sensitive Troponin I Reference Ranges: Female: 0-51 ng/L Male: 0-76 ng/L Testing performed on Signal Patterns using a homogeneous sandwich chemiluminescent immunoassay based on Clever technology. Urea nitrogen [Mass/Vol] 10 mg/dL Normal 7 - 18 mg/dL AO ADM SS Urea nitrogen/Creatinine [Mass ratio] 19 ratio Normal 7 - 27 ratio AO ADM SS WBC (Bld) [#/Vol] 17.9 103/mcL High 4.6 - 10.8 10^3/mcL AO Workflow SS LABORATORYOrdered By: Deisy Reynoso on 04-05-2024 Platelets LM Ql (Bld) Increased (04/05/24 8:17 PM) Normal AO Hematology S LIPon 04-05-2024 Lipase Level 125 U/L High 16-77 [facility] Comment on above: Performed By: #### GOMEZ LUCIANONP #### [address] [address] PREGUon 04-05-2024 HCG ( test) Ql (U) Negative Normal [facility] Comment on above: Performed By: #### P REGS #### [place] [address] test (u) int Not detected Invalid Interpretation Code [facility] Comment on above: Performed By: #### P REGS #### [address] [address] TROPHSon 04-05-2024 High Sensitivity Troponin I <4 Normal 0-51 [facility] Comment on above: Result Comment: High Sensitive Troponin I Reference Ranges: Female: 0-51 ng/L Male: 0-76 ng/L Testing performed on Signal Patterns using a homogeneous sandwich chemiluminescent immunoassay based on Clever technology. Performed By: #### GOMEZ LUCIANONP #### [address] [address] UAon 04-05-2024 Color (U) Yellow Normal [facility] Comment on above: Performed By: #### GOMEZ LUCIANONP #### [address] [address] Glucose (U) [Mass/Vol] Negative Normal Negative [facility] Comment on above: Performed By: #### GOMEZ LUCIANONP #### [address] [address] Ketones Ql (U) Negative Normal Negative [facility] Comment on above: Performed By: #### GOMEZ LUCIANONP #### [address] [address] UA Appear Slightly Cloudy Abnormal Clear [facility] Comment on above: Performed By: #### CRISELDA LUCIANO #### [address] [address] UA Blood Large Abnormal Negative [facility] Comment on above: Performed By: #### Stevie VILLARREAL, PBNP #### [address] [address] UA Leuk Est Moderate Abnormal Negative [facility] Comment on above: Performed By: #### Stevie VILLARREAL, PBNP #### [address] [address] UA Nitrite Negative Normal Negative [facility] Comment on above: Performed By: #### Stevie VILLARREAL PBNP #### [address] [address] UA pH 7.5 Normal 5.0 - 8.0 [facility] Comment on above: Performed By: #### Stevie VILLARREAL PBNP #### [address] [address] UA Protein Negative Normal Negative [facility] Comment on above: Performed By: #### Stevie VILLARREAL PBNP #### [address] [address] UA Spec Grav 1.015 Normal 1.015-1.025 [facility] Comment on above: Performed By: #### Stevie VILLARREAL, PBNP #### [address] [address] UA Specimen Type Void Normal [facility] Comment on above: Performed By: #### Stevie VILLARREAL PBNP #### [address] [address] UA Urobilinogen 0.2 E.U./dL Normal 0.2-1.0 [facility] Comment on above: Performed By: #### Stevie VILLARREAL, PBNP #### [address] [address] Urobilinogen (U) [Mass/Vol] Negative Normal Negative [facility] Comment on above: Performed By: #### Stevie VILLARREAL PBNP #### [address], [place] [address] 36on 04-04-2024 36 Office has made several attempts to schedule pt. Unable to reach letter mailed to pt's address on file. Hold released and advanced endo sheet updated. [facility] 36 Last attempt: LMTCB re: scheduling r/s OV for 04/28/24 at 10 am [address] Zambrano. If Pt calls back, please confirm new date/time/location [place] [address]on 03-29-2024 36 LMTCB re: scheduling r/s OV for 04/28/24 at 10 am [address] Zambrano. If Pt calls back, please confirm new date/time/location [place] [address] Received records from [facility] and scanned into media. TY [place] [address]on 03-28-2024 36 LMTCB with records department re: faxing Pt's record to [facility] at [phone] . [place] [address]on 03-27-[address] Mcghee's office and LMTCB re : faxing Pt's record to [facility] at [phone] . [place] [address] LMTCB re: scheduling r/s OV for 04/28/24 at 10 am [address] Zambrano. If Pt calls back, please confirm new date/time/location [place] [address] GI staff to make 2nd attempt for scheduling. Note: Records have not been received from Dr Mcghee's office. GI staff to contact office for additional request. [facility] .GFRon 03-24-2024 GFR 138 ml/min/1.73sqm [facility] Comment on above: Result Comment: GFR Population mean for , Non- Americans Ages 20-29 = 116 mL/min/1.73 sq.m. Ages 30-39 = 107 mL/min/1.73 sq.m. Ages 40-49 = 99 mL/min/1.73 sq.m. Ages 50-59 = 93 mL/min/1.73 sq.m. Ages 60-69 = 85 mL/min/1.73 sq.m. Ages 70+ = 75 mL/min/1.73 sq.m. Chronic Kidney Disease: Less than 60 mL/min/1.73 square meters End Stage Renal Disease: Less than 15 mL/min/1.73 square meters Performed By: #### P REGS #### [address] [address] GFR Non- 114 ml/min/1.73sqm Normal [facility] Comment on above: Result Comment: GFR Population mean for , Non- Americans Ages 20-29 = 116 mL/min/1.73 sq.m. Ages 30-39 = 107 mL/min/1.73 sq.m. Ages 40-49 = 99 mL/min/1.73 sq.m. Ages 50-59 = 93 mL/min/1.73 sq.m. Ages 60-69 = 85 mL/min/1.73 sq.m. Ages 70+ = 75 mL/min/1.73 sq.m. Chronic Kidney Disease: Less than 60 mL/min/1.73 square meters End Stage Renal Disease: Less than 15 mL/min/1.73 square meters Performed By: #### P REGS #### [address] [address] BMPon 03-24-2024 BUN/Creatinine Ratio 11 ratio Normal 7-27 [facility] Comment on above: Performed By: #### P REGS #### [address] [address] Calcium [Mass/Vol] 7.9 mg/dL Low 8.4-10.2 [facility] [facility] Comment on above: Performed By: #### P REGS #### [address] [address] Chloride [Moles/Vol] 102 mmol/L Normal 98-107 [facility] Comment on above: Performed By: #### P REGS #### [address] [address] CO2 [Moles/Vol] 28 mmol/L Normal 22-29 [facility] Comment on above: Performed By: #### P REGS #### [place] [phone] Creatinine [Mass/Vol] 0.61 mg/dL Normal 0.55-1.02 [facility] Comment on above: Result Comment: Test ing performed on Siemens Dimension EXL analyzer using a modified kinetic Nanette technique. Performed By: #### P REGS #### [place] [phone] Electrolyte Balance 5.0 mEq/L Normal 4.0-15.0 [facility] Comment on above: Performed By: #### P REGS #### [place] [address] Glucose [Mass/Vol] 91 mg/dL Normal 70-105 [facility] Comment on above: Performed By: #### P REGS #### [place] [address] Potassium [Moles/Vol] 3.6 mmol/L Normal 3.5-5.1 [facility] Comment on above: Performed By: #### P REGS #### [place] [address] Sodium [Moles/Vol] 135 mmol/L Low 136-145 [facility] Comment on above: Performed By: #### P REGS #### [place] [phone] Urea nitrogen [Mass/Vol] 7 mg/dL Normal 7-18 [facility] Comment on above: Performed By: #### P REGS #### [address] [address] PREGSon 03-24-2024 test (s) Negative Normal [facility] Comment on above: Performed By: #### P REGS #### [place] [phone] test (s) int Not detected Invalid Interpretation Code [facility] Comment on above: Performed By: #### P REGS #### [place] [phone] .Auto Diffon 03-23-2024 Basophil, Absolute 0.1 10 3/mcL Normal 0.0-0.2 [facility] ([place] Comment on above: Performed By: #### L IP, GFR, ANEU, ESR, YASMANY, ADIFF, CRP, CBC, CMP #### [address] [address] Basophils/100 WBC (Bld) 0.7 % Normal 0.0-2.5 A [facility] ([place] Comment on above: Performed By: #### L IP, GFR, ANEU, ESR, YASMANY, ADIFF, CRP, CBC, CMP #### [address] [address] Eosinophil, Absolute 0.2 10 3/mcL Normal 0.0-0.4 [facility] ([place] Comment on above: Performed By: #### L IP, GFR, ANEU, ESR, YASMANY, ADIFF, CRP, CBC, CMP #### [address] [address] Eosinophils/100 WBC (Bld) 2.0 % Normal 0.0-7.0 [facility] ([place] Comment on above: Performed By: #### L IP, GFR, ANEU, ESR, YASMANY, ADIFF, CRP, CBC, CMP #### [address] [address] Lymphocyte, Absolute 2.1 10 3/mcL Normal 0.8-3.9 [facility] ([place] Comment on above: Performed By: #### L IP, GFR, ANEU, ESR, YASMANY, ADIFF, CRP, CBC, CMP #### [address] [address] Lymphocytes/100 WBC (Bld) 17.9 % Normal 10.0-50.0 [facility] ([place] Comment on above: Performed By: #### L IP, GFR, ANEU, ESR, YASMANY, ADIFF, CRP, CBC, CMP #### [address] [address] Monocyte, Absolute 0.7 10 3/mcL Normal 0.2-1.0 [facility] ([place] Comment on above: Performed By: #### L IP, GFR, ANEU, ESR, YASMANY, ADIFF, CRP, CBC, CMP #### [address] [address] Monocytes/100 WBC (Bld) 5.6 % Normal 1.7-13.0 A [facility] ([place] Comment on above: Performed By: #### L IP, GFR, ANEU, ESR, YASMANY, ADIFF, CRP, CBC, CMP #### [address] [address] Neutrophils/100 WBC (Bld) 73.8 % Normal 37.0-80.0 [facility] ([place] Comment on above: Performed By: #### L IP, GFR, ANEU, ESR, YASMANY, ADIFF, CRP, CBC, CMP #### [address] [address] .MDWon 03-23-2024 Monocyte Distribution Width 21.31 High 0.00-20.00 [facility] ([place] Comment on above: Result Comment: For adults in ED, MDW>20.0 may be associated with a higher risk of sepsis during the first 12hrs of hospital admission Performed By: #### L IP, GFR, ANEU, ESR, YASMANY, ADIFF, CRP, CBC, CMP #### [address] [address] .NEUABSon 03-23-2024 Neutrophil, Absolute 8.7 10 3/mcL High 2.9-6.2 [facility] ([place] Comment on above: Performed By: #### L IP, GFR, ANEU, ESR, YASMANY, ADIFF, CRP, CBC, CMP #### [address] [address] CBCon 03-23-2024 Erythrocyte distribution width (RBC) [Ratio] 14.5 % Normal 11.5-14.5 [facility] ([place] Comment on above: Performed By: #### L IP, GFR, ANEU, ESR, YASMANY, ADIFF, CRP, CBC, CMP #### [address] [address] Hematocrit (Bld) [Volume fraction] 40.2 % Normal 37.0-47.0 [facility] ([place] Comment on above: Performed By: #### L IP, GFR, ANEU, ESR, YASMANY, ADIFF, CRP, CBC, CMP #### [place] [phone] Hgb 13.4 G/dL Normal 12.0-16.0 [facility] ([place] Comment on above: Performed By: #### L IP, GFR, ANEU, ESR, YASMANY, ADIFF, CRP, CBC, CMP #### [place] [address] MCH (RBC) [Entitic mass] 30.1 pg Normal 27.0-31.2 [facility] ([place] Comment on above: Performed By: #### L IP, GFR, ANEU, ESR, YASMANY, ADIFF, CRP, CBC, CMP #### [place] [address] MCHC 33.3 G/dL Normal 33.0-37.0 [facility] ([place] Comment on above: Performed By: #### L IP, GFR, ANEU, ESR, YASMANY, ADIFF, CRP, CBC, CMP #### [place] [phone] MCV (RBC) [Entitic vol] 90.3 fL Normal 80.0-94.0 A [facility] ([place] Comment on above: Performed By: #### L IP, GFR, ANEU, ESR, YASMANY, ADIFF, CRP, CBC, CMP #### [address] [address] Platelet 466 10 3/mcL High 130-400 [facility] ([place] Comment on above: Performed By: #### L IP, GFR, ANEU, ESR, YASMANY, ADIFF, CRP, CBC, CMP #### [place] [phone] Platelet mean volume (Bld) [Entitic vol] 10.1 fL Normal 7.4-10.4 [facility] ([place] Comment on above: Performed By: #### L IP, GFR, ANEU, ESR, YASMANY, ADIFF, CRP, CBC, CMP #### [place] [address] [place], [place] [address] RBC 4.45 10 6/mcL Normal 4.20-5.40 [facility] ([place]) Comment on above: Performed By: #### L IP, GFR, ANEU, ESR, YASMANY, ADIFF, CRP, CBC, CMP #### [place] [address] [place], [place] [address] WBC 11.7 10 3/mcL High 4.6-10.8 [facility] ([place] Comment on above: Performed By: #### L IP, GFR, ANEU, ESR, YASMANY, ADIFF, CRP, CBC, CMP #### [place] [address] [place], [place] [address] CT ANGIOGRAPHY CHEST W/CONTR Josué 03-23-2024 CT ANGIOGRAPHY CHEST W/CONTRAST ORIGINAL EXAMINATION: CTA OF THE CHEST 03/23/2024 8:20 pm TECHNIQUE: CTA of the chest was performed after the administration of intravenous contrast. Multiplanar reformatted images are provided for review. MIP images are provided for review. Automated exposure control, iterative reconstruction, and/or weight based adjustment of the mA/kV was utilized to reduce the radiation dose to as low as reasonably achievable. COMPARISON: Radiograph of the chest November 30, 2023, limited evaluation of the upper abdomen on CT abdomen pelvis November 30, 2023. HISTORY: ORDERING SYSTEM PROVIDED HISTORY: Reason for Exam: chest pain; suspect PE FINDINGS: Pulmonary Arteries: Pulmonary arteries are adequately opacified for evaluation. No evidence of intraluminal filling defect to suggest pulmonary embolism. Main pulmonary artery is normal in caliber. Mediastinum: No evidence of mediastinal lymphadenopathy. The heart and pericardium demonstrate no acute abnormality. There is no acute abnormality of the thoracic aorta. Lungs/pleura: Bronchial wall thickening. No focal consolidation or pulmonary edema. No evidence of pleural effusion or pneumothorax. Upper Abdomen: Lower density of the liver relative to the spleen suggestive of hepatic steatosis. There is ill-defined fluid along the left upper abdomen medially in the expected location of the left adrenal gland/diaphragmatic region. Soft Tissues/Bones: No acute bone or soft tissue abnormality. IMPRESSION: There is ill-defined fluid along the left upper abdomen medially in the expected location of the left adrenal gland/diaphragmatic region. Given history of pancreatitis, perhaps this could be some tracking fluid along the retroperitoneum from an inflamed pancreas although differential includes adrenal pathology, blood products, among others. CT abdomen pelvis is suggested. Small left pleural fluid, which could be reactive. Bronchial wall thickening which could reflect bronchitis or reactive airway disease. Interpreted by: Dilan Kaminski Preliminary Report By: Dilan Kaminski Electronically signed By Dilan Kaminski Dictated Date: 03/23/2024 8:25:20 PM Prelim Date: 03/23/2024 8:32:49 PM Sign Date: 03/23/2024 8:32:49 PM Ordering Provider: DEISY COLVIN Normal [facility] HFPon 03-23-2024 Mike Indirect Unable to Calculate Normal [facility] Comment on above: Result Comment: Unab le to calculate this test result accurately. Results used to calculate this test are outside the reportable range. Performed By: #### H FP, LIP #### [address] [address] Albumin Level 2.9 G/dL Low 3.5-5.0 [facility] Comment on above: Performed By: #### H FP, LIP #### [address] [address] Albumin/Globulin [Mass ratio] 0.6 {ratio} Low 1.1-2.5 [facility] Comment on above: Performed By: #### H FP, LIP #### [address] [address] ALP [Catalytic activity/Vol] 235 U/L High 40-135 [facility] Comment on above: Performed By: #### H FP, LIP #### [address] [address] ALT [Catalytic activity/Vol] 18 U/L Normal 14-59 [facility] Comment on above: Performed By: #### H FP, LIP #### [address] [address] AST [Catalytic activity/Vol] 24 U/L Normal 10-40 [facility] Comment on above: Performed By: #### H FP, LIP #### [place] [address] Bili Direct <0.1 Normal 0.0-0.2 [facility] Comment on above: Result Comment: Use of this assay is not recommended for patients undergoing treatment with eltrombopag due to the potential for falsely elevated results. Performed By: #### H FP, LIP #### [place] [id number] Bili Total 0.9 mg/dL Normal 0.2-1.0 [facility] Comment on above: Result Comment: Use of this assay is not recommended for patients undergoing treatment with eltrombopag due to the potential for falsely elevated results. Performed By: #### H FP, LIP #### [place] [address] Globulin 4.5 G/dL Normal [facility] Comment on above: Performed By: #### H FP, LIP #### [place] [address] Total Protein 7.4 G/dL Normal 6.4-8.2 [facility] Comment on above: Performed By: #### H FP, LIP #### [place] [address] LABORATORYOrdered By: SYSTEM SYSTEM on 03-23-2024 Albumin BCP dye [Mass/Vol] 2.9 G/dL Low 3.5 - 5.0 G/dL AO ADM SS Albumin/Globulin [Mass ratio] 0.6 {ratio} Low 1.1 - 2.5 ratio AO ADM SS ALP [Catalytic activity/Vol] 235 U/L High 40 - 135 U/L AO ADM SS ALT With P-5'-P [Catalytic activity/Vol] 18 U/L Normal 14 - 59 U/L AO ADM SS AST With P-5'-P [Catalytic activity/Vol] 24 U/L Normal 10 - 40 U/L AO ADM SS Basophils (Bld) [#/Vol] 0.1 103/mcL Normal 0.0 - 0.2 10^3/mcL AO Workflow SS Basophils/100 WBC (Bld) 0.7 % Normal 0.0 - 2.5 % AO Workflow SS Bilirubin [Mass/Vol] 0.9 mg/dL Normal 0.2 - 1 .0 mg/dL AO ADM SS Comment on above: Interpretive Data: U se of this assay is not recommended for patients undergoing treatment with eltrombopag due to the potential for falsely elevated results. Bilirubin.direct [Mass/Vol] mg/dL Normal 0.0 - 0.2 mg/dL AO ADM SS Comment on above: Interpretive Data: U se of this assay is not recommended for patients undergoing treatment with eltrombopag due to the potential for falsely elevated results. Bilirubin.direct [Mass/Vol] Unable to Calculate Invalid Interpretation Code AO Chemistry S Comment on above: Result Comment: Unab le to calculate this test result accurately. Results used to calculate this test are outside the reportable range. Eosinophil, Absolute 0.2 103/mcL Normal 0.0 - 0 .4 10^3/mcL AO Workflow SS Eosinophils/100 WBC (Bld) 2.0 % Normal 0.0 - 7.0 % AO Workflow SS Erythrocyte distribution width (RBC) [Ratio] 14.5 % Normal 11.5 - 14.5 % AO Workflow SS Globulin 4.5 G/dL Invalid Interpretation Code AO ADM SS Hematocrit (Bld) [Volume fraction] 40.2 % Normal 37.0 - 47.0 % AO Workflow SS Hemoglobin (Bld) [Mass/Vol] 13.4 G/dL Normal 12.0 - 16.0 G/dL AO Workflow SS Lipase [Catalytic activity/Vol] 287 U/L High 16 - 77 U/L AO ADM SS Lymphocytes (Bld) [#/Vol] 2.1 103/mcL Normal 0.8 - 3.9 10^3/mcL AO Workflow SS Lymphocytes/100 WBC (Bld) 17.9 % Normal 10.0 - 50.0 % AO Workflow SS MCH (RBC) [Entitic mass] 30.1 pg Normal 27. 0 - 31.2 pg AO Workflow SS MCHC 33.3 G/dL Normal 33.0 - 37.0 G/dL AO Workflow SS MCV (RBC) [Entitic vol] 90.3 fL Normal 80.0 - 94.0 fL AO Workflow SS Monocyte distribution width Auto (Bld) [Entitic vol] 21.31 1 High 0.00 - 20.00 AO Workflow SS Comment on above: Result Comment: For adults in ED, MDW>20.0 may be associated with a higher risk of sepsis during the first 12hrs of hospital admission Monocytes (Bld) [#/Vol] 0.7 103/mcL Normal 0.2 - 1.0 10^3/mcL AO Workflow SS Monocytes/100 WBC (Bld) 5.6 % Normal 1.7 - 13.0 % AO Workflow SS Natriuretic peptide.B prohormone N-Terminal [Mass/Vol] 77 pg/mL Normal 0 - 125 pg/mL AO ADM SS Comment on above: Interpretive Data: N T-proBNP results of less than 300 pg/mL effectively rules out acute congestive heart failure with 99% negative predictive value. Neutrophils (Bld) [#/Vol] 8.7 103/mcL High 2.9 - 6.2 10^3/mcL AO Workflow SS Neutrophils/100 WBC (Bld) 73.8 % Normal 37.0 - 80.0 % AO Workflow SS Platelet mean volume (Bld) [Entitic vol] 10.1 fL Normal 7.4 - 10.4 fL AO Workflow SS Platelets (Bld) [#/Vol] 466 103/mcL High 130 - 400 10^3/mcL AO Workflow SS Protein [Mass/Vol] 7.4 G/dL Normal 6.4 - 8.2 G/dL AO ADM SS RBC (Bld) [#/Vol] 4.45 106/mcL Normal 4.20 - 5.4 0 10^6/mcL AO Workflow SS Troponin I.cardiac DL <= 0.01 ng/mL [Mass/Vol] ng/L Normal 0 - 51 ng/L AO ADM SS Comment on above: Interpretive Data: H igh Sensitive Troponin I Reference Ranges: Female: 0-51 ng/L Male: 0-76 ng/L Testing performed on Signal Patterns using a homogeneous sandwich chemiluminescent immunoassay based on Clever technology. WBC (Bld) [#/Vol] 11.7 103/mcL High 4.6 - 10.8 10^3/mcL AO Workflow SS LIPon 03-23-2024 Lipase Level 287 U/L High 16-77 [facility] Comment on above: Performed By: #### H FP, LIP #### [address] [address] No Panel Informationon 03-23 Microscopic examination of blood, culture Culture has been received in lab and is no growth to date. Routine cultures are held for 5 days. [facility] PBNPon 03-23-2024 Natriuretic peptide B (Bld) [Mass/Vol] 77 pg/mL Normal 0-125 [facility] Comment on above: Result Comment: NT-p roBNP results of less than 300 pg/mL effectively rules out acute congestive heart failure with 99% negative predictive value. Performed By: #### CRISELDA LUCIANO #### [address] [address] [facility] 03-23-2024 High Sensitivity Troponin I <4 Normal 0-51 [facility] Comment on above: Result Comment: High Sensitive Troponin I Reference Ranges: Female: 0-51 ng/L Male: 0-76 ng/L Testing performed on Signal Patterns using a homogeneous sandwich chemiluminescent immunoassay based on Clever technology. Performed By: #### GOMEZ LUCIANONP #### [address] [address] on 03-22-2024 36 LMTCB re: scheduling r/s OV for 04/28/24 at 10 am [address] Zambrano. If Pt calls back, please confirm new date/time/location [facility] 03-16-2024 36 Pt established w PAULETTE Gomez at [facility]. Called their office and spoke w their staff (Krysta). Requested records to be sent to our office to maintain continuity of care (office notes, procedure notes from 01/31 ERCP, etc.). Fax# provided. Our office to fax recent hosp admission records and 03/17 OV notes tomorrow after updated plan of care received. [facility] 36on 03-10-2024 36 Pt is scheduled for an OV 03/17 at 9:[address] Zambrano. [facility] 36 Message released to patient as written. Patient's further questions if applicable: patient will except 03/17 appointment the mother confirmed Were all questions from office addressed or relayed to the patient from encounter: Yes [facility] 36 The person that answered this call stated that this is no longer the correct number for Feroz and stated he has been receiving notifications re: hospital visits ext. [phone] deleted. I contacted Pt' Mother and LMTCB re: scheduling OV 03/17 at 9:[address] Zambrano at [address]. If Pt calls back please confirm date/time/location. Normal [facility] 36 Added to adv endo list. GI staff to contact pt to schedule OV w Dr Zambrano. Slot available: 03/17 at 0930. Normal [facility] BASIC METABOLIC PANELon 08 Anion gap [Moles/Vol] 4 mmol/L Normal 3-13 [facility] Comment on above: Performed By: #### L [id number] ####Nanny Babysitter: YASMANY CHANG ([phone])[address] Calcium [Mass/Vol] 8.5 mg/dL Normal 8.4-10.4 [facility] Comment on above: Performed By: #### L [id number] ####Nanny Babysitter: YASMANY CHANG ([phone])[facility])[address] [place] [address] Chloride [Moles/Vol] 106 mmol/L Normal 98-107 [facility] Comment on above: Performed By: #### L [id number] ####Nanny Babysitter: YASMANY CHANG ([phone])[facility])[address] [place] [address] [place] CO2 [Moles/Vol] 23 mmol/L Normal 22-30 [facility] Comment on above: Performed By: #### L [id number] ####Nanny Babysitter: YASMANY CHANG ([phone])[facility])[address] [place] [address] Creatinine [Mass/Vol] 0.44 mg/dL Low 0.52-1.04 [facility] Comment on above: Performed By: #### L [id number] ####Nanny Babysitter: YASMANY CHANG ([phone])[facility])[address] [place] [address] GLOMERULAR FILTRATION RATE ML/MIN/1.73 SQ M.PREDICTED >90.0 Normal >60.0 [facility] Comment on above: Result Comment: Calc ulation based on the Chronic Kidney Disease Epidemiology Collaboration (CKD-EPI) equation refit without adjustment for race Performed By: #### L [id number] ####Nanny Babysitter: YASMANY CHANG ([phone])[facility] ([facility])[address] [place] [address] Glucose [Mass/Vol] 86 mg/dL Normal 70-100 [facility] Comment on above: Performed By: #### L [id number] ####Nanny Babysitter: YASMANY CHANG ([phone])[facility])[address] [place] [address] Potassium [Moles/Vol] 3.8 mmol/L Normal 3.5-5.1 [facility] Comment on above: Performed By: #### L [id number] ####Nanny Babysitter: YASMANY CHANG ([phone])[facility] ([facility])[address] [place] [address] Sodium [Moles/Vol] 134 mmol/L Low 135-145 [facility] Comment on above: Performed By: #### L [id number] ####Nanny Babysitter: YASMANY CHANG ([phone])[facility])[address] [place] [address] Urea nitrogen [Mass/Vol] mg/dL Low 7-17 [facility] Comment on above: Performed By: #### L [id number] ####Nanny Babysitter: YASMANY CHANG ([phone])[facility])[address] [place] [address] Basic metabolic 1998 panelon 03-08-2024 Anion gap [Moles/Vol] 4 mmol/L 3 - 13 mmol/L [facility] Calcium [Mass/Vol] 8.5 mg/dL 8.4 - 10. 4 mg/dL [facility] Chloride [Moles/Vol] 106 mmol/L 98 - 10 7 mmol/L [facility] CO2 [Moles/Vol] 23 mmol/L 22 - 30 mmol/L [facility] Creatinine [Mass/Vol] 0.44 mg/dL Low 0.52 - 1.04 mg/dL [facility] GFR/1.73 sq M.predicted (S/P/Bld) [Vol rate/Area] - PINF [facility] Comment on above: Calculation based on the Chronic Kidney Disease Epidemiology Collaboration (CKD-EPI) equation refit without adjustment for race Glucose [Mass/Vol] 86 mg/dL 70 - 100 mg/dL [facility] Interpretation and review of laboratory results Abnormal [facility] Potassium [Moles/Vol] 3.8 mmol/L 3.5 - 5.1 mmol/L [facility] Sodium [Moles/Vol] 134 mmol/L Low 135 - 145 mmol/L [facility] Urea nitrogen [Mass/Vol] mg/dL Low 7 - 17 mg/dL [facility] CBC W Auto Differential pane l (Bld)on 03-08-2024 Basophils (Bld) [#/Vol] 0.0 10*3/uL 0.0 - 0.2 10*3/uL [facility] Basophils/100 WBC (Bld) 0.2 % 0.0 - 2.0 % [facility] Eosinophils (Bld) [#/Vol] 0.3 10*3/uL 0.0 - 0.5 10*3/uL [facility] Eosinophils/100 WBC (Bld) 4.8 % 0.0 - 6.0 % [facility] Erythrocyte distribution width (RBC) [Ratio] 13.3 % 11.5 - 15.0 % [facility] Hematocrit (Bld) [Volume fraction] 31.9 % Low 35.0 - 47.0 % [facility] Hemoglobin (Bld) [Mass/Vol] 10.5 g/dL Low 11.7 - 16.0 g/dL [facility] Immature granulocytes (Bld) [#/Vol] 0.0 10*3/uL NINF - 0.1 10*3/uL [facility] Immature granulocytes/100 WBC (Bld) 0.2 % 0.0 - 2.0 % [facility] Interpretation and review of laboratory results Abnormal [facility] Lymphocytes (Bld) [#/Vol] 2.1 10*3/uL 1.0 - 4.3 10*3/uL [facility] Lymphocytes/100 WBC (Bld) 36.4 % 15.0 - 45.0 % [facility] MCH (RBC) [Entitic mass] 30.2 pg 26. 0 - 34.0 pg [facility] MCHC (RBC) [Mass/Vol] 32.9 % 30.5 - 36.0 % [facility] MCV (RBC) [Entitic vol] 91.7 fL 77.0 - 99.0 fL [facility] Monocytes (Bld) [#/Vol] 0.5 10*3/uL 0.0 - 0.9 10*3/uL [facility] Monocytes/100 WBC (Bld) 8.0 % 5.0 - 13.0 % [facility] Neutrophils (Bld) [#/Vol] 2.8 10*3/uL 1.8 - 7.5 10*3/uL [facility] Neutrophils/100 WBC (Bld) 50.4 % 38.0 - 82.0 % [facility] Nucleated RBC/100 WBC (Bld) [Ratio] 0.0 % [facility] Platelet mean volume (Bld) [Entitic vol] 12.5 fL 9.0 - 12.7 fL [facility] Platelets (Bld) [#/Vol] 247 10*3/uL 140 - 440 10*3/uL [facility] RBC (Bld) [#/Vol] 3.48 10*6/uL Low 3.80 - 5.2 0 10*6/uL [facility] WBC (Bld) [#/Vol] 5.6 10*3/uL 3.6 - 10.7 10*3/uL [facility] CBC WITH AUTO DIFFERENTIALon 03-08-2024 Basophils (Bld) [#/Vol] 0.0 10*3/uL Normal 0.0-0.2 [facility] Comment on above: Performed By: #### L [id number] ####Nanny Babysitter: YASMANY CHANG ([phone])[facility] ([address] Basophils/100 WBC (Bld) 0.2 % Normal 0.0-2.0 [facility] Comment on above: Performed By: #### L [id number] ####Nanny Babysitter: YASMANY CHANG ([phone])[facility])[address] [place] [address] Eosinophils (Bld) [#/Vol] 0.3 10*3/uL Normal 0.0-0.5 [facility] Comment on above: Performed By: #### L [id number] ####Nanny Babysitter: YASMANY CHANG ([phone])[facility])[address] [place] [address] Eosinophils/100 WBC (Bld) 4.8 % Normal 0.0-6.0 [facility] Comment on above: Performed By: #### L [id number] ####Nanny Babysitter: YASMANY CHANG ([phone])[address] Erythrocyte distribution width (RBC) [Ratio] 13.3 % Normal 11.5-15.0 [facility] Comment on above: Performed By: #### L [id number] ####Nanny Babysitter: YASMANY CHANG ([phone])[facility])[address] [place] [address] Hematocrit (Bld) [Volume fraction] 31.9 % Low 35.0-47.0 [facility] Comment on above: Performed By: #### L [id number] ####Nanny Babysitter: YASMANY CHANG ([phone])[facility])[address] [place] [address] Hemoglobin (Bld) [Mass/Vol] 10.5 g/dL Low 11.7-16.0 [facility] Comment on above: Performed By: #### L [id number] ####Nanny Babysitter: YASMANY CHANG ([phone])[facility])[address] [place] [address] IMMATURE GRANS % 0.2 % Normal 0.0-2.0 [facility] Comment on above: Performed By: #### L [id number] ####Nanny Babysitter: YASMANY CHANG ([phone])[facility])[address] [place] [address] IMMATURE GRANS ABSOLUTE 0.0 10*3/uL Normal <0.1 [facility] Comment on above: Performed By: #### L [id number] ####Nanny Babysitter: YASMANY CHANG ([phone])[facility])[address] [place] [address] Lymphocytes (Bld) [#/Vol] 2.1 10*3/uL Normal 1.0-4.3 [facility] Comment on above: Performed By: #### L [id number] ####Nanny Babysitter: YASMANY CHANG ([phone])[address] Lymphocytes/100 WBC (Bld) 36.4 % Normal 15.0-45.0 [facility] Comment on above: Performed By: #### L [id number] ####Nanny Babysitter: YASMANY CHANG ([phone])[facility])[address] [place] [address] MCH (RBC) [Entitic mass] 30.2 pg Normal 26.0-34.0 [facility] Comment on above: Performed By: #### L [id number] ####Nanny Babysitter: YASMANY CHANG ([phone])[facility])[address] [place] [address] MCHC 32.9 % Normal 30.5-36.0 [facility] Comment on above: Performed By: #### L [id number] ####Nanny Babysitter: YASMANY CHANG ([phone])[facility])[address] [place] [address] MCV (RBC) [Entitic vol] 91.7 fL Normal 77.0-99.0 [facility] Comment on above: Performed By: #### L [id number] ####Nanny Babysitter: YASMANY CHANG ([phone])[facility])[address] [place] [address] Monocytes (Bld) [#/Vol] 0.5 10*3/uL Normal 0.0-0.9 [facility] Comment on above: Performed By: #### L [id number] ####Nanny Babysitter: YASMANY CHANG ([phone])[facility] ([facility])[address] [place] [address] Monocytes/100 WBC (Bld) 8.0 % Normal 5.0-13.0 [facility] Comment on above: Performed By: #### L [id number] ####Nanny Babysitter: YASMANY CHANG ([phone])[facility] ([facility])[address] [place] [address] NEUTROPHILS ABSOLUTE 2.8 10*3/uL Normal 1.8-7.5 [facility] Comment on above: Performed By: #### L [id number] ####Nanny Babysitter: YASMANY CHANG ([phone])[facility] ([facility])[address] [place] [address] Neutrophils/100 WBC (Bld) 50.4 % Normal 38.0-82.0 [facility] Comment on above: Performed By: #### L [id number] ####Nanny Babysitter: YASMANY CHANG ([phone])[facility] ([facility])[address] [place] [address] NRBC 0.0 /100 WBCs Normal 0.0-2.0 [facility] Comment on above: Performed By: #### L [id number] ####Nanny Babysitter: YASMANY CHANG ([phone])[facility] ([facility])[address] [place] [address] Platelet mean volume (Bld) [Entitic vol] 12.5 fL Normal 9.0-12.7 [facility] Comment on above: Performed By: #### L [id number] ####Nanny Babysitter: YASMANY CHANG ([phone])[facility] ([facility])[address] [place] [address] [place] Platelets (Bld) [#/Vol] 247 10*3/uL Normal 140-440 [facility] Comment on above: Performed By: #### L [id number] ####Nanny Babysitter: YASMANY CHANG ([phone])[facility])[address] [place] [address] RBC (Bld) [#/Vol] 3.48 10*6/uL Low 3.80-5.20 [facility] Comment on above: Performed By: #### L [id number] ####Nanny Babysitter: YASMANY CHANG ([phone])[facility] ([facility])[address] [place] [address] WBC (Bld) [#/Vol] 5.6 10*3/uL Normal 3.6-10.7 [facility] Comment on above: Performed By: #### L [id number] ####Nanny Babysitter: YASMANY CHANG ([phone])[address] IDNon 03-08-2024 IDN The patient is Moderately Stable - Low risk of patient condition declining or worsening The patient's goals for the shift include dc to home The clinical goals for the shift include Pain control dc to home Over the shift, the patient did not make progress toward the following goals. Barriers to progression include none. Recommendations to address these barriers include none. Normal [facility] IDN The patient is Moderately Stable - Low risk of patient condition declining or worsening The patient's goals for the shift include improve pain and nausea The clinical goals for the shift include Pain control improve nausea dc if able to tolerate food Over the shift, the patient did not make progress toward the following goals. Barriers to progression include none. Recommendations to address these barriers include none. Normal [facility] IDN The patient is Moderately Stable - Low risk of patient condition declining or worsening The patient's goals for the shift include pain control The clinical goals for the shift include Pain control Problem: Pain - Adult Goal: Verbalizes/displays adequate comfort level or baseline comfort level Outcome: Progressing Problem: Safety - Adult Goal: Free from fall injury Outcome: Progressing Problem: Discharge Planning Goal: Discharge to home or other facility with appropriate resources Outcome: Progressing Problem: Knowledge Deficit Goal: Patient/family/careg iver demonstrates understanding of disease process, treatment plan, medications, and discharge instructions Outcome: Progressing Problem: Potential for Compromised Skin Integrity Goal: Skin Integrity is Maintained or Improved Outcome: Progressing Goal: Nutritional status is improving Outcome: Progressing Problem: Urinary Incontinence Goal: Perineal skin integrity is maintained or improved Outcome: Progressing Normal [facility] IGG 1, 2, 3, AND 4on 024 IGG SUBCLASS 1 350 mg/dL Normal 240-1118 [facility] Comment on above: Result Comment: REFE RENCE INTERVAL: Immunoglobulin G Subclass 1 The total IgG (mg/dL) can be derived from the sum of the subclass IgG1, IgG2, IgG3, and IgG4 values. However, a confirmatory and more precise total IgG is available by the turbidimetric method of quantitation for total IgG. Refer to test Immunoglobulin G, Serum ([id number]). Access complete set of age- and/or gender-specific reference intervals for this test in the [facility] Test Directory ([email or web address]). Performed By: #### L [id number] ####[facility] ([facility])[address] [place] [address] [facility] IGG SUBCLASS 2 409 mg/dL Normal 124-549 [facility] Comment on above: Result Comment: REFE RENCE INTERVAL: Immunoglobulin G Subclass 2 Access complete set of age- and/or gender-specific reference intervals for this test in the [employer] [facility] Test Directory ([employer]). Performed By: #### L [id number] ####[facility] ([facility])[address] [place] [address] [facility] IGG SUBCLASS 3 54 mg/dL Normal 21-134 [facility] Comment on above: Result Comment: REFE RENCE INTERVAL: Immunoglobulin G Subclass 3 Access complete set of age- and/or gender-specific reference intervals for this test in the [employer] [facility] Test Directory ([email or web address]). Performed By: #### L [id number] ####[facility] ([facility])[address] [place] [address] [facility] IGG SUBCLASS 4 65 mg/dL Normal 1-123 [facility] Comment on above: Result Comment: REFE RENCE INTERVAL: Immunoglobulin G Subclass 4 Access complete set of age- and/or gender-specific reference intervals for this test in the [facility] Directory ([employer]). Performed By: [facility] [address] [place] [address] Nanny Babysitter: He Simon MD, PhD LORIA Number: [id number] Performed By: #### L [id number] ####[facility] ([facility])[address] [place] [address] [place] Progress Noteon 03-08-2024 Progress Note Attestation with edits by Reji Thompson DO at 03/08/2024 12:34 PM I have discussed the care of Feroz Kaiser with the medical student and/or resident. I have personally taken a history, examined the patient, and performed the associated medical decision making activities. I have reviewed & verified the attested documentation. Unless otherwise noted below, this documentation reflects the history, physical exam, and medical decision making that I performed myself. Please see note for my personal highlights or additions in Green. Patient seen and examined by myself at 0853 on 03/08/24 [place] Changes to Care Plan: -Patient required escalation in her as needed Dilaudid overnight, however states that her pain is much better controlled this a.m. She is asking about discharge today. She states that she has been tolerating adequate p.o. intake. IV fluids were stopped yesterday and she has been able to maintain hydration with p.o. fluids. -Will plan for discharge this afternoon as long as she is able to continue to tolerate p.o. intake. Close outpatient follow-up with GI to schedule EUS/ERCP. Her laboratory work is stable and her leukocytosis that was present on admission has resolved. -Will send out with a short course of oxycodone. Discussed that if pain becomes chronic she may benefit from a celiac plexus block. May also need a referral to pain management if there are chronic pain issues. 7AM-5PM: contact resident on [facility] Med B team (found by hovering over attending's name on left side of patient's chart) 5PM-7AM: contact AI2 (Med Team A or B) or AI3 (Med Team C or D) Time spent on discharge > 30 minutes. Med Team Progress Note Feroz Kaiser : 1990(33 y.o.) Date: March 08, 2024 Med Team: Marta Attending: Dr Thompson Chief Complaint: Acute on Chronic Pancreatitis Subjective: - Overnight, changed Dilaudid 0.5 mg from q8h back to q4h prn as pt stated her medication is not lasting long enough. - Currently, patient is resting comfortably in bed. She reports feeling better, and states her pain has improved since yesterday. She states she is slowly increasing her diet and tolerating food well. Has thrown up twice since starting a regular diet. Reports vomit was non-bloody. She reports feeling nauseous when she walks around and does not believe it is due to eating. Pt will fu with GI outpatient for EUS in around three weeks. She denies any chest pain, shortness of breath, constipation, or swelling. She reports once a day loose watery stools. Pt reports no use of albuterol and consistent use of incentive spirometer. Pt is agreeable to stopping IV Dilaudid and continuing on oxycodone PO. Pt is agreeable to being discharged on oxycodone 5 mg for 5 days (20 tablets) and compazine for nausea. Will check on pt after she eats breakfast to see how she tolerates and determine readiness for discharge today. PRN meds used in last 24hrs: -Oxy 10 mg x5 -Dilaudid 0.5 IV x5 -Compazine 10 mg IV x4 Agree with above. Patient seen and examined at bedside and and was resting comfortably. She required an escalation in her pain medications overnight. She states that she feels much better this a.m. and is asking about discharge. She thinks the worsening in her pain yesterday was due to emotional distress of learning that a family member had . She states that she is tolerating adequate p.o. intake. Review of Systems Constitutional: Negative for appetite change, chills and fever. Respiratory: Negative for shortness of breath and wheezing. Cardiovascular: Negative for chest pain. Gastrointestinal: Positive for abdominal pain (LUQ pain, improved), diarrhea (watery, no blood, once daily), nausea (only when walking) and vomiting (x2). Negative for abdominal distention and constipation. Genitourinary: Negative for decreased urine volume, difficulty urinating and dysuria. Scheduled Meds:acetaminophen, 1,000 mg, Oral, q8h enoxaparin, 40 mg, SubCUTAneous, Daily folic acid, 1 mg, Oral, Daily ipratropium-albutero l, 3 mL, Nebulization, 2 times per day nicotine, 1 patch, TransDERmal, Daily Followed by [START ON 04/17/2024] nicotine, 1 patch, TransDERmal, Daily Followed by [START ON 05/01/2024] nicotine, 1 patch, TransDERmal, Daily senna-docusate sodium, 1 tablet, Oral, BID thiamine, 100 mg, Oral, Daily Continuous Infusions: None Objective: BP 115/57 (BP Location: Right arm) Pulse 57 Temp 36 ?C (96.8 ?F) (Temporal) Resp 16 Ht 5' 2 (1.575 m) Wt 135 lb (61.2 kg) SpO2 96% BMI 24.69 kg/m? Physical Exam Constitutional: General: She is not in acute distress. Appearance: Normal appearance. She is not ill-appea (more content not included)... Normal [facility] CBC W Auto Differential pane l (Bld)on 03-07-2024 Basophils (Bld) [#/Vol] 0.0 10*3/uL 0.0 - 0.2 10*3/uL [facility] Basophils/100 WBC (Bld) 0.4 % 0.0 - 2.0 % [facility] Eosinophils (Bld) [#/Vol] 0.2 10*3/uL 0.0 - 0.5 10*3/uL [facility] Eosinophils/100 WBC (Bld) 3.7 % 0.0 - 6.0 % [facility] Erythrocyte distribution width (RBC) [Ratio] 13.2 % 11.5 - 15.0 % [facility] Hematocrit (Bld) [Volume fraction] 31.1 % Low 35.0 - 47.0 % [facility] Hemoglobin (Bld) [Mass/Vol] 9.9 g/dL Low 11.7 - 16.0 g/dL [facility] Immature granulocytes (Bld) [#/Vol] 0.0 10*3/uL NINF - 0.1 10*3/uL [facility] Immature granulocytes/100 WBC (Bld) 0.4 % 0.0 - 2.0 % [facility] Interpretation and review of laboratory results Abnormal [facility] Lymphocytes (Bld) [#/Vol] 1.8 10*3/uL 1.0 - 4.3 10*3/uL [facility] Lymphocytes/100 WBC (Bld) 35.7 % 15.0 - 45.0 % [facility] MCH (RBC) [Entitic mass] 28.6 pg 26. 0 - 34.0 pg [facility] MCHC (RBC) [Mass/Vol] 31.8 % 30.5 - 36.0 % [facility] MCV (RBC) [Entitic vol] 89.9 fL 77.0 - 99.0 fL [facility] Monocytes (Bld) [#/Vol] 0.3 10*3/uL 0.0 - 0.9 10*3/uL [facility] Monocytes/100 WBC (Bld) 6.7 % 5.0 - 13.0 % [facility] Neutrophils (Bld) [#/Vol] 2.6 10*3/uL 1.8 - 7.5 10*3/uL [facility] Neutrophils/100 WBC (Bld) 53.1 % 38.0 - 82.0 % [facility] Nucleated RBC/100 WBC (Bld) [Ratio] 0.0 % [facility] Platelet mean volume (Bld) [Entitic vol] 11.9 fL 9.0 - 12.7 fL [facility] Platelets (Bld) [#/Vol] 242 10*3/uL 140 - 440 10*3/uL [facility] RBC (Bld) [#/Vol] 3.46 10*6/uL Low 3.80 - 5.2 0 10*6/uL [facility] WBC (Bld) [#/Vol] 4.9 10*3/uL 3.6 - 10.7 10*3/uL [facility] CBC WITH AUTO DIFFERENTIALon 03-07-2024 Basophils (Bld) [#/Vol] 0.0 10*3/uL Normal 0.0-0.2 [facility] Comment on above: Performed By: #### L [id number] ####Nanny Babysitter: YASMANY CHANG ([phone])[facility])[address] [place] [address] Basophils/100 WBC (Bld) 0.4 % Normal 0.0-2.0 [facility] Comment on above: Performed By: #### L [id number] ####Nanny Babysitter: YASMANY CHANG ([phone])[facility] ([facility])[address] [place] [address] Eosinophils (Bld) [#/Vol] 0.2 10*3/uL Normal 0.0-0.5 [facility] Comment on above: Performed By: #### L [id number] ####Nanny Babysitter: YASMANY CHANG ([phone])[facility])[address] [place] [address] Eosinophils/100 WBC (Bld) 3.7 % Normal 0.0-6.0 [facility] Comment on above: Performed By: #### L [id number] ####Nanny Babysitter: YASMANY CHANG ([phone])[facility])[address] [place] [address] Erythrocyte distribution width (RBC) [Ratio] 13.2 % Normal 11.5-15.0 [facility] Comment on above: Performed By: #### L [id number] ####Nanny Babysitter: YASMANY CHANG ([phone])[facility])[address] [place] [address] Hematocrit (Bld) [Volume fraction] 31.1 % Low 35.0-47.0 [facility] Comment on above: Performed By: #### L [id number] ####Nanny Babysitter: YASMANY CHANG ([phone])[facility])[address] [place] [address] Hemoglobin (Bld) [Mass/Vol] 9.9 g/dL Low 11.7-16.0 [facility] Comment on above: Performed By: #### L [id number] ####Nanny Babysitter: YASMANY CHANG ([phone])[facility])[address] [place] [address] IMMATURE GRANS % 0.4 % Normal 0.0-2.0 [facility] Comment on above: Performed By: #### L [id number] ####Nanny Babysitter: YASMANY CHANG ([phone])[address] IMMATURE GRANS ABSOLUTE 0.0 10*3/uL Normal <0.1 [facility] Comment on above: Performed By: #### L [id number] ####Nanny Babysitter: YASMANY CHANG ([phone])[facility])[address] [place] [address] Lymphocytes (Bld) [#/Vol] 1.8 10*3/uL Normal 1.0-4.3 [facility] Comment on above: Performed By: #### L [id number] ####Nanny Babysitter: YASMANY CHANG ([phone])[facility])[address] [place] [address] Lymphocytes/100 WBC (Bld) 35.7 % Normal 15.0-45.0 [facility] Comment on above: Performed By: #### L [id number] ####Nanny Babysitter: YASMANY CHANG ([phone])[facility])[address] [place] [address] MCH (RBC) [Entitic mass] 28.6 pg Normal 26.0-34.0 [facility] Comment on above: Performed By: #### L [id number] ####Nanny Babysitter: YASMANY CHANG ([phone])[facility] ([facility])[address] [place] [address] MCHC 31.8 % Normal 30.5-36.0 [facility] Comment on above: Performed By: #### L [id number] ####Nanny Babysitter: YASMANY CHANG ([phone])[facility] ([facility])[address] [place] [address] MCV (RBC) [Entitic vol] 89.9 fL Normal 77.0-99.0 [facility] Comment on above: Performed By: #### L [id number] ####Nanny Babysitter: YASMANY CHANG ([phone])[facility] ([facility])[address] [place] [address] Monocytes (Bld) [#/Vol] 0.3 10*3/uL Normal 0.0-0.9 [facility] Comment on above: Performed By: #### L [id number] ####Nanny Babysitter: YASMANY CHANG ([phone])[facility] ([facility])[address] [place] [address] Monocytes/100 WBC (Bld) 6.7 % Normal 5.0-13.0 [facility] Comment on above: Performed By: #### L [id number] ####Nanny Babysitter: YASMANY CHANG ([phone])[facility] ([facility])[address] [place] [address] NEUTROPHILS ABSOLUTE 2.6 10*3/uL Normal 1.8-7.5 [facility] Comment on above: Performed By: #### L [id number] ####Nanny Babysitter: YASMANY CHANG ([phone])[facility] ([facility])[address] [place] [address] Neutrophils/100 WBC (Bld) 53.1 % Normal 38.0-82.0 [facility] Comment on above: Performed By: #### L [id number] ####Nanny Babysitter: YASMANY CHANG ([phone])[facility] ([facility])[address] [place] [address] NRBC 0.0 /100 WBCs Normal 0.0-2.0 [facility] Comment on above: Performed By: #### L [id number] ####Nanny Babysitter: YASMANY CHANG ([phone])[facility])[address] [place] [address] Platelet mean volume (Bld) [Entitic vol] 11.9 fL Normal 9.0-12.7 [facility] Comment on above: Performed By: #### L [id number] ####Nanny Babysitter: YASMANY CHANG ([phone])[facility] ([facility])[address] [place] [address] Platelets (Bld) [#/Vol] 242 10*3/uL Normal 140-440 [facility] Comment on above: Performed By: #### L [id number] ####Nanny Babysitter: YASMANY CHANG ([phone])[facility] ([facility])[address] [place] [address] RBC (Bld) [#/Vol] 3.46 10*6/uL Low 3.80-5.20 [facility] Comment on above: Performed By: #### L [id number] ####Nanny Babysitter: YASMANY CHANG ([phone])[facility] ([facility])[address] [place] [address] WBC (Bld) [#/Vol] 4.9 10*3/uL Normal 3.6-10.7 [facility] Comment on above: Performed By: #### L [id number] ####Nanny Babysitter: YASMANY CHANG ([phone])[facility] ([facility])[address] [place] [address] COMPREHENSIVE METABOLIC PANE [place] 03-07-2024 Albumin [Mass/Vol] 2.5 g/dL Low 3.5-5.0 [facility] Comment on above: Performed By: #### L [id number] #### Nanny Babysitter: YASMANY CHANG ([phone]) [facility] ([facility]) [address] [place] [address] [place] ALP [Catalytic activity/Vol] 134 U/L High 38-126 [facility] Comment on above: Performed By: #### L [id number] #### Nanny Babysitter: YASMANY CHANG ([phone]) [facility] ([facility]) [address] [place] [address] ALT [Catalytic activity/Vol] 12 U/L Normal 0-34 [facility] Comment on above: Performed By: #### L [id number] #### Nanny Babysitter: YASMANY CHANG ([phone]) [facility] ([facility]) [address] [place] [address] Anion gap [Moles/Vol] 3 mmol/L Normal 3-13 [facility] Comment on above: Performed By: #### L [id number] #### Nanny Babysitter: YASMANY CHANG ([phone]) [facility] ([facility]) [address] [place] [address] AST [Catalytic activity/Vol] 22 U/L Normal 15-46 [facility] Comment on above: Performed By: #### L [id number] #### Nanny Babysitter: YASMANY CHANG ([phone]) [facility] ([facility]) [address] [place] [address] Bilirubin [Mass/Vol] 0.6 mg/dL Normal 0.2-1.3 [facility] Comment on above: Performed By: #### L [id number] #### Nanny Babysitter: YASMANY CHANG ([phone]) [facility] ([facility]) [address] [place] [address] Calcium [Mass/Vol] 7.8 mg/dL Low 8.4-10.4 [facility] Comment on above: Performed By: #### L [id number] #### Nanny Babysitter: YASMANY CHANG ([phone]) [facility] ([facility]) [address] [place] [address] [place] Chloride [Moles/Vol] 109 mmol/L High 98-107 [facility] Comment on above: Performed By: #### L [id number] #### Nanny Babysitter: YASMANY CHANG ([phone]) [facility] ([facility]) [address] [place] [address] [place] CO2 [Moles/Vol] 24 mmol/L Normal 22-30 [facility] Comment on above: Performed By: #### L [id number] #### Nanny Babysitter: YASMANY CHANG ([phone]) [facility] ([facility]) [address] [place] [address] Creatinine [Mass/Vol] 0.42 mg/dL Low 0.52-1.04 [facility] Comment on above: Performed By: #### L [id number] #### Nanny Babysitter: YASMANY CHANG ([phone]) [facility] ([facility]) [address] [place] [address] GLOMERULAR FILTRATION RATE ML/MIN/1.73 SQ M.PREDICTED >90.0 Normal >60.0 [facility] Comment on above: Result Comment: Calc ulation based on the Chronic Kidney Disease Epidemiology Collaboration (CKD-EPI) equation refit without adjustment for race Performed By: #### L [id number] #### Nanny Babysitter: YASMANY CHANG ([phone]) [facility] ([facility]) [address] [place] [address] [place] Glucose [Mass/Vol] 86 mg/dL Normal 70-100 [facility] Comment on above: Performed By: #### L [id number] #### Nanny Babysitter: YASMANY CHANG ([phone]) [facility] ([facility]) [address] [place] [address] [place] Potassium [Moles/Vol] 3.6 mmol/L Normal 3.5-5.1 [facility] Comment on above: Performed By: #### L [id number] #### Nanny Babysitter: YASMANY CHANG ([phone]) [facility] ([facility]) [address] [place] [address] [place] Protein [Mass/Vol] 5.3 g/dL Low 6.3-8.2 [facility] Comment on above: Performed By: #### L [id number] #### Nanny Babysitter: YASMANY CHANG ([phone]) [facility] ([facility]) [address] [place] [address] [place] Sodium [Moles/Vol] 135 mmol/L Normal 135-145 [facility] Comment on above: Performed By: #### L [id number] #### Nanny Babysitter: YASMANY CHANG ([phone]) [facility] ([facility]) [address] [place] [address] Urea nitrogen [Mass/Vol] mg/dL Low 7-17 [facility] Comment on above: Performed By: #### L [id number] #### Nanny Babysitter: YASMANY CHANG ([phone]) [facility] ([facility]) [address] [place] [address] Comprehensive metabolic 1998 panelon 03-07-2024 Albumin [Mass/Vol] 2.5 g/dL Low 3.5 - 5.0 g/dL [facility] ALP [Catalytic activity/Vol] 134 U/L High 38 - 126 U/L [facility] ALT [Catalytic activity/Vol] 12 U/L 0 - 34 U/L [facility] Anion gap [Moles/Vol] 3 mmol/L 3 - 13 mmol/L [facility] AST [Catalytic activity/Vol] 22 U/L 15 - 46 U/L [facility] Bilirubin [Mass/Vol] 0.6 mg/dL 0.2 - 1 .3 mg/dL [facility] Calcium [Mass/Vol] 7.8 mg/dL Low 8.4 - 10. 4 mg/dL [facility] Chloride [Moles/Vol] 109 mmol/L High 98 - 10 7 mmol/L [facility] CO2 [Moles/Vol] 24 mmol/L 22 - 30 mmol/L [facility] Creatinine [Mass/Vol] 0.42 mg/dL Low 0.52 - 1.04 mg/dL [facility] GFR/1.73 sq M.predicted (S/P/Bld) [Vol rate/Area] - PINF [facility] Comment on above: Calculation based on the Chronic Kidney Disease Epidemiology Collaboration (CKD-EPI) equation refit without adjustment for race Glucose [Mass/Vol] 86 mg/dL 70 - 100 mg/dL [facility] Interpretation and review of laboratory results Abnormal [facility] Potassium [Moles/Vol] 3.6 mmol/L 3.5 - 5.1 mmol/L [facility] Protein [Mass/Vol] 5.3 g/dL Low 6.3 - 8.2 g/dL [facility] Sodium [Moles/Vol] 135 mmol/L 135 - 145 mmol/L [facility] Urea nitrogen [Mass/Vol] mg/dL Low 7 - 17 mg/dL [facility] IDNon 03-07-2024 IDN Problem: Pain - Adult Goal: Verbalizes/displays adequate comfort level or baseline comfort level Outcome: Progressing Problem: Safety - Adult Goal: Free from fall injury Outcome: Progressing Problem: Discharge Planning Goal: Discharge to home or other facility with appropriate resources Outcome: Progressing Problem: Knowledge Deficit Goal: Patient/family/careg iver demonstrates understanding of disease process, treatment plan, medications, and discharge instructions Outcome: Progressing Problem: Potential for Compromised Skin Integrity Goal: Skin Integrity is Maintained or Improved Outcome: Progressing Goal: Nutritional status is improving Outcome: Progressing Problem: Urinary Incontinence Goal: Perineal skin integrity is maintained or improved Outcome: Progressing Normal [facility] Progress Noteon 03-07-2024 Progress Note Attestation with edits by Reji Thompson DO at 03/07/2024 2:56 PM I have discussed the care of Feroz Kaiser with the medical student and/or resident. I have personally taken a history, examined the patient, and performed the associated medical decision making activities. I have reviewed & verified the attested documentation. Unless otherwise noted below, this documentation reflects the history, physical exam, and medical decision making that I performed myself. Please see note for my personal highlights or additions in Green. Patient seen and examined by myself at 0905 on 03/07/24 [place] Changes to Care Plan: -Pain continues to improve, however she is still utilizing IV Dilaudid frequently. Given that pain is improving, will decrease frequency of IV Dilaudid to every 8 hours as needed. Continue to advance diet as tolerated. -Chest x-ray yesterday showed a left sided effusion/infiltrate. She does not have any clinical signs of pneumonia. POCUS completed this a.m. showed only a small left-sided effusion. Suspect that this is related to her pancreatitis/aggress murali fluid resuscitation. Given that there is only a small fluid collection and there are no signs/symptoms of infection, will hold off on thoracentesis. If pleural effusion worsens or persists, would need a thoracentesis for further evaluation. This can be reevaluated on an outpatient basis. - p.o. intake is improving. Will stop IV fluids and trial p.o. hydration. -Anticipate discharge in the next 1-2 days if her pain continues to improve and she is able to tolerate adequate p.o. intake. -Evaluated by GI on 03/06/2024. Recommending outpatient follow-up for EUS/CRP. IgG4 testing was ordered. 7AM-5PM: contact resident on [facility] Med B team (found by hovering over attending's name on left side of patient's chart) 5PM-7AM: contact AI2 (Med Team A or B) or AI3 (Med Team C or D) 1. Complexity of problems addressed: Acute on chronic pancreatitis requiring IV opioids for pain control 3. Drug therapy requiring intensive monitoring for toxicity: IV hydromorphone Med Team Progress Note Feroz Kaiser : 1990(33 y.o.) Date: March 07, 2024 Med Team: Marta Attending: Dr Thompson Chief Complaint: Acute on Chronic Pancreatitis Subjective: - No acute events overnight. - Currently, patient is resting comfortably in bed. She stated her IV came out last night so she was without pain meds for a few hours. She is still having epigastric pain that radiates across her back, but it has improved. She was advanced to regular adult diet yesterday. She threw up 2 hours after eating soup yesterday, but tolerated her second meal of mashed potatoes and turkey well. She wants to continue the regular diet. She is agreeable to decreasing her pain regimen to Dilaudid every 8 hrs instead of 4 hrs. Reviewed chest x-ray results with patient, and showed patient how to properly use incentive spirometer and reminded her to use it at least once every 30 minutes. Discussed discontinuing IV fluids and the need for improved pain control prior to discharge. Pt reported she receives about a week supply of oxycodone when she goes to the GI doctor. Discussed avoiding certain fatty foods and to slowly increase diet to avoid irritating the pancreas. She denies any chest pain, shortness of breath, dysuria, or constipation. She agreed to bedside POCUS. Revealed mild effusion of left lung at costophrenic angle. These findings are consistent with the CXR results. PRN meds used in last 24hrs: -Oxy 10 mg x5 -Oxy 5 mg x1 -Dilaudid 0.5 IV x5 -Compazine 10 mg IV x2 Agree with above. Patient seen and examined at bedside and was resting comfortably. No acute overnight events noted.states that pain is overall improved, however remains significant. She is still utilizing IV Dilaudid for pain control. P.o. intake is improving. She is agreeable to reducing the frequency of IV Dilaudid today. Hopeful for discharge in the next few days. Understands plan for outpatient follow-up with GI to discuss EUS/ERCP. Review of Systems Constitutional: Negative for appetite change (improving), chills, diaphoresis and fever. Respiratory: Negative for cough, shortness of breath and wheezing. Cardiovascular: Negative for chest pain. Gastrointestinal: Positive for abdominal pain (LUQ radiating into back and RUQ), nausea and vomiting. Negative for constipation and diarrhea. Genitourinary: Negative for decreased urine volume, difficulty urinating and dysuria. Scheduled Meds:acetaminophen, 1,000 mg, Oral, q8h enoxaparin, 40 mg, SubCUTAneous, Daily folic acid, 1 mg, Oral, Daily ipratropium-albutero l, 3 mL, Nebulization, 2 times per (more content not included)... [facility] Progress Note Nutrition rescreen completed. Chart reviewed. Patient to be monitored and followed by the diet smog technician. JURGEN Campbell [facility] 36on 03-06-2024 36 Patient evaluated inpatient, patient seen previously in [place], has biliary stent, would like to follow up with Dr. Zambrano. Needs OV with him and then EUS/ERCP after. Normal [facility] BASIC METABOLIC PANELon 02-16 Anion gap [Moles/Vol] 6 mmol/L Normal 3-13 [facility] Comment on above: Performed By: #### L AB103, LAB15, LAB20 ####Nanny Babysitter: YASMANY CHANG ([phone])[facility] ([facility])[address] [place] [address] Calcium [Mass/Vol] 7.9 mg/dL Low 8.4-10.4 [facility] Comment on above: Performed By: #### Radha AB103, LAB15, LAB20 ####Nanny Babysitter: YASMANY CHANG ([phone])[facility] ([facility])[address] [place] [address] Chloride [Moles/Vol] 107 mmol/L Normal 98-107 [facility] Comment on above: Performed By: #### Radha AB103, LAB15, LAB20 ####Nanny Babysitter: YASMANY CHANG ([phone])[facility] ([facility])[address] [place] [address] CO2 [Moles/Vol] 21 mmol/L Low 22-30 [facility] Comment on above: Performed By: #### Radha AB103, LAB15, LAB20 ####Nanny Babysitter: YASMANY CHANG ([phone])[facility] ([facility])[address] [place] [address] Creatinine [Mass/Vol] 0.39 mg/dL Low 0.52-1.04 [facility] Comment on above: Performed By: #### L AB103, LAB15, LAB20 ####Nanny Babysitter: YASMANY CHANG ([phone])[facility])[address] [place] [address] GLOMERULAR FILTRATION RATE ML/MIN/1.73 SQ M.PREDICTED >90.0 Normal >60.0 [facility] Comment on above: Result Comment: Calc ulation based on the Chronic Kidney Disease Epidemiology Collaboration (CKD-EPI) equation refit without adjustment for race Performed By: #### Radha MATTHEWS, LAB15, LAB20 ####Nanny Babysitter: YASMANY CHANG ([phone])[facility] ([facility])[address] [place] [address] Glucose [Mass/Vol] 78 mg/dL Normal 70-100 [facility] Comment on above: Performed By: #### Radha AB103, LAB15, LAB20 ####Nanny Babysitter: YASMANY CHANG ([phone])[facility] ([facility])[address] [place] [address] Potassium [Moles/Vol] 3.2 mmol/L Low 3.5-5.1 [facility] Comment on above: Performed By: #### Radha [id number], LAB15, LAB20 ####Nanny Babysitter: YASMANY CHANG ([phone])[facility] ([facility])[address] [place] [address] Sodium [Moles/Vol] 134 mmol/L Low 135-145 [facility] Comment on above: Performed By: #### Radha MATTHEWS, LAB15, LAB20 ####Nanny Babysitter: YASMANY CHANG ([phone])[facility])[address] [place] [address] Urea nitrogen [Mass/Vol] mg/dL Low 7-17 [facility] Comment on above: Performed By: #### Radha MATTHEWS, LAB15, LAB20 ####Nanny Babysitter: YASMANY CHANG ([phone])[facility])[address] [place] [address] Basic metabolic 1998 panelon 03-06-2024 Anion gap [Moles/Vol] 6 mmol/L 3 - 13 mmol/L [facility] Calcium [Mass/Vol] 7.9 mg/dL Low 8.4 - 10. 4 mg/dL [facility] Chloride [Moles/Vol] 107 mmol/L 98 - 10 7 mmol/L [facility] CO2 [Moles/Vol] 21 mmol/L Low 22 - 30 mmol/L [facility] Creatinine [Mass/Vol] 0.39 mg/dL Low 0.52 - 1.04 mg/dL [facility] GFR/1.73 sq M.predicted (S/P/Bld) [Vol rate/Area] - PINF [facility] Comment on above: Calculation based on the Chronic Kidney Disease Epidemiology Collaboration (CKD-EPI) equation refit without adjustment for race Glucose [Mass/Vol] 78 mg/dL 70 - 100 mg/dL [facility] Interpretation and review of laboratory results Abnormal [facility] Potassium [Moles/Vol] 3.2 mmol/L Low 3.5 - 5.1 mmol/L [facility] Sodium [Moles/Vol] 134 mmol/L Low 135 - 145 mmol/L [facility] Urea nitrogen [Mass/Vol] mg/dL Low 7 - 17 mg/dL [facility] CARECOORDon 03-06-2024 [facility] Care Managment Initial Assessment Date: 03/06/2024 Patient Name: Feroz Kaiser : 1990 Patient Information Source of Information: Patient Cognition/Language: WFL - Within Functional Limits Permission given to speak with patient product representative/careg iver as indicated: Yes Confirmation of Payer with patient/family: Yes Payer Name: [employer] MEDICAID [place]: No Confirmation of Primary Care Physician: Confirmed PCP Name: Victorino Jones, DO Seen in last 2 years?: Yes Primary Caregiver: Self If assistance needed, confirmed caregiver ready, willing and able to care for patient at discharge: Confirmed with: Living Arrangements Current Residence: (Trailer) Number of Floors 1 Number of Entry Steps: 5 or more (5 steps) Bed/Bath Levels: Facility: Facility Name: Plan to Return: Lives with: Spouse/significant other Support Systems: Spouse/significant other, Family members Activities of Daily Living Ambulation: Independent Bathing/Dressing: Independent Elimination/Continen ce/Toileting: Independent Feeding: Independent Who Assists with Activities of Daily Living: Instrumental Activities of Daily Living Prescription Coverage: Yes Pharmacy Used: [facility] in [facility] Medication Management: Independent Transportation/Shopp ing: Assistance Provider Transportation/Shopp ing Assistance Provider Name: per family Transportation Mode: Car Needs Assistance with Transportation at Discharge: No Meal Preparation: Independent Laundry/Cleaning: Independent Finances/Bill Paying: Independent Communication: Independent Types of Care Services/Equipment Utilized Care Services: Dialysis Type: Durable Medical Equipment: (denies DME) Patient's Goal/Discharge Plan Patient expects to be discharged to: home Discharge Planning Actions: Continue to follow Patient's Choice Rights and [employer] and Collaborative Relationships Disclosed as Indicated for Post-Acute Care: Interdisciplinary Team Engagement: Social Work Referral for: Additional Information: Met with patient and mom at bedside - reviewed discharge plan, introduced self and role. Patient from home independent with SO and 2 kids (10 & 8 y/o). Patient states has insurance and able to afford medications. Help available at home and family will provide transportation home. Plan -Home - when medically stable. Normal [facility] CBC W Auto Differential pane l (Bld)on 03-06-2024 Basophils (Bld) [#/Vol] 0.0 10*3/uL 0.0 - 0.2 10*3/uL [facility] Basophils/100 WBC (Bld) 0.4 % 0.0 - 2.0 % [facility] Eosinophils (Bld) [#/Vol] 0.2 10*3/uL 0.0 - 0.5 10*3/uL [facility] Eosinophils/100 WBC (Bld) 3.8 % 0.0 - 6.0 % [facility] Erythrocyte distribution width (RBC) [Ratio] 13.1 % 11.5 - 15.0 % [facility] Hematocrit (Bld) [Volume fraction] 30.6 % Low 35.0 - 47.0 % [facility] Hemoglobin (Bld) [Mass/Vol] 10.1 g/dL Low 11.7 - 16.0 g/dL [facility] Immature granulocytes (Bld) [#/Vol] 0.0 10*3/uL NINF - 0.1 10*3/uL [facility] Immature granulocytes/100 WBC (Bld) 0.2 % 0.0 - 2.0 % [facility] Interpretation and review of laboratory results Abnormal [facility] Lymphocytes (Bld) [#/Vol] 2.0 10*3/uL 1.0 - 4.3 10*3/uL [facility] Lymphocytes/100 WBC (Bld) 37.2 % 15.0 - 45.0 % [facility] MCH (RBC) [Entitic mass] 29.9 pg 26. 0 - 34.0 pg [facility] MCHC (RBC) [Mass/Vol] 33.0 % 30.5 - 36.0 % [facility] MCV (RBC) [Entitic vol] 90.5 fL 77.0 - 99.0 fL [facility] Monocytes (Bld) [#/Vol] 0.3 10*3/uL 0.0 - 0.9 10*3/uL [facility] Monocytes/100 WBC (Bld) 5.8 % 5.0 - 13.0 % [facility] Neutrophils (Bld) [#/Vol] 2.8 10*3/uL 1.8 - 7.5 10*3/uL [facility] Neutrophils/100 WBC (Bld) 52.6 % 38.0 - 82.0 % [facility] Nucleated RBC/100 WBC (Bld) [Ratio] 0.0 % [facility] Platelet mean volume (Bld) [Entitic vol] 12.1 fL 9.0 - 12.7 fL [facility] Platelets (Bld) [#/Vol] 226 10*3/uL 140 - 440 10*3/uL [facility] RBC (Bld) [#/Vol] 3.38 10*6/uL Low 3.80 - 5.2 0 10*6/uL [facility] WBC (Bld) [#/Vol] 5.3 10*3/uL 3.6 - 10.7 10*3/uL [facility] CBC WITH AUTO DIFFERENTIALon 03-06-2024 Basophils (Bld) [#/Vol] 0.0 10*3/uL Normal 0.0-0.2 [facility] Comment on above: Performed By: #### L [id number] ####Nanny Babysitter: YASMANY CHANG ([phone])[facility] ([facility])[address] [place] [address] Basophils/100 WBC (Bld) 0.4 % Normal 0.0-2.0 S [facility] Comment on above: Performed By: #### L [id number] ####Nanny Babysitter: YASMANY CHANG ([phone])[facility] ([facility])[address] [place] [address] Eosinophils (Bld) [#/Vol] 0.2 10*3/uL Normal 0.0-0.5 [facility] Comment on above: Performed By: #### L [id number] ####Nanny Babysitter: YASMANY CHANG ([phone])[facility])[address] [place] [address] Eosinophils/100 WBC (Bld) 3.8 % Normal 0.0-6.0 [facility] Comment on above: Performed By: #### L [id number] ####Nanny Babysitter: YASMANY CHANG ([phone])[facility])[address] [place] [address] Erythrocyte distribution width (RBC) [Ratio] 13.1 % Normal 11.5-15.0 [facility] Comment on above: Performed By: #### L [id number] ####Nanny Babysitter: YASMANY CHANG ([phone])[address] Hematocrit (Bld) [Volume fraction] 30.6 % Low 35.0-47.0 [facility] Comment on above: Performed By: #### L [id number] ####Nanny Babysitter: YASMANY CHANG ([phone])[address] Hemoglobin (Bld) [Mass/Vol] 10.1 g/dL Low 11.7-16.0 [facility] Comment on above: Performed By: #### L [id number] ####Nanny Babysitter: YASMANY CHANG ([phone])[facility])[address] [place] [address] IMMATURE GRANS % 0.2 % Normal 0.0-2.0 [facility] Comment on above: Performed By: #### L [id number] ####Nanny Babysitter: YASMANY CHANG ([phone])[address] IMMATURE GRANS ABSOLUTE 0.0 10*3/uL Normal <0.1 [facility] Comment on above: Performed By: #### L [id number] ####Nanny Babysitter: YASMANY CHANG ([phone])[facility])[address] [place] [address] Lymphocytes (Bld) [#/Vol] 2.0 10*3/uL Normal 1.0-4.3 [facility] Comment on above: Performed By: #### L [id number] ####Nanny Babysitter: YASMANY CHANG ([phone])[facility])[address] [place] [address] Lymphocytes/100 WBC (Bld) 37.2 % Normal 15.0-45.0 [facility] Comment on above: Performed By: #### L [id number] ####Nanny Babysitter: YASMANY CHANG ([phone])[facility])[address] [place] [address] MCH (RBC) [Entitic mass] 29.9 pg Normal 26.0-34.0 [facility] Comment on above: Performed By: #### L [id number] ####Nanny Babysitter: YASMANY CHANG ([phone])[facility])[address] [place] [address] MCHC 33.0 % Normal 30.5-36.0 [facility] Comment on above: Performed By: #### L [id number] ####Nanny Babysitter: YASMANY CHANG ([phone])[facility])[address] [place] [address] MCV (RBC) [Entitic vol] 90.5 fL Normal 77.0-99.0 [facility] Comment on above: Performed By: #### L [id number] ####Nanny Babysitter: YASMANY CHANG ([phone])[facility])[address] [place] [address] Monocytes (Bld) [#/Vol] 0.3 10*3/uL Normal 0.0-0.9 [facility] Comment on above: Performed By: #### L [id number] ####Nanny Babysitter: YASMANY CHANG ([phone])[facility])[address] [place] [address] Monocytes/100 WBC (Bld) 5.8 % Normal 5.0-13.0 [facility] Comment on above: Performed By: #### L [id number] ####Nanny Babysitter: YASMANY CHANG ([phone])[facility] ([facility])[address] [place] [address] NEUTROPHILS ABSOLUTE 2.8 10*3/uL Normal 1.8-7.5 [facility] Comment on above: Performed By: #### L [id number] ####Nanny Babysitter: YASMANY CHANG ([phone])[facility] ([facility])[address] [place] [address] Neutrophils/100 WBC (Bld) 52.6 % Normal 38.0-82.0 [facility] Comment on above: Performed By: #### L [id number] ####Nanny Babysitter: YASMANY CHANG ([phone])[facility] ([facility])[address] [place] [address] NRBC 0.0 /100 WBCs Normal 0.0-2.0 [facility] Comment on above: Performed By: #### L [id number] ####Nanny Babysitter: YASMANY CHANG ([phone])[facility] ([facility])[address] [place] [address] Platelet mean volume (Bld) [Entitic vol] 12.1 fL Normal 9.0-12.7 [facility] Comment on above: Performed By: #### L [id number] ####Nanny Babysitter: YASMANY CHANG ([phone])[facility] ([facility])[address] [place] [address] [place] Platelets (Bld) [#/Vol] 226 10*3/uL Normal 140-440 [facility] Comment on above: Performed By: #### L [id number] ####Nanny Babysitter: YASMANY CHANG ([phone])[facility] ([facility])[address] [place] [address] [place] RBC (Bld) [#/Vol] 3.38 10*6/uL Low 3.80-5.20 [facility] Comment on above: Performed By: #### L [id number] ####Nanny Babysitter: YASMANY CHANG ([phone])[facility] ([facility])[address] [place] [address] WBC (Bld) [#/Vol] 5.3 10*3/uL Normal 3.6-10.7 [facility] Comment on above: Performed By: #### L [id number] ####Nanny Babysitter: YASMANY CHANG ([phone])[facility] ([facility])[address] [place] [address] Consulton 03-06-2024 Consult Attestation signed by Raghav Zambrano MD at 03/06/2024 6:45 PM Attending Supervising Physician?s Attestation Statement I have personally performed and participated in all the above services (including HPI and PE). I have reviewed the case with Advance Practice Provider (MELVA)/ resident / student, and agreed with the MELVA's / resident / student assessment and plan as above. I have following additions or modifications: I did substantive portion of medical decision making. Recurrent acute pancreatitis. Has a CBD stent for unknown reason. No current jaundice, recommend IV fluids, DVT prophylaxis , start on clear liquids and advance as tolerated. EUS to evaluate pancreas and ERCP to remove stent in 3-4 weeks. Discussed to avoid smoking and EtOH. IGG4 at OSH was negative per patient. Has osmani many years ago. Inpatient GI to sign off , call with questions, recommend aggressive supportive measures as above. [facility] Department of Internal Medicine Gastroenterology Attending Consult Note Reason for Consult: The patient was seen in consultation at the request of Reji Thompson re: Recurrent pancreatitis, s/p biliary stent. CHIEF COMPLAINT: Epigastric pain History Obtained From: patient HISTORY OF PRESENT ILLNESS: The patient is a 33 y.o. female with significant past medical history of pancreatitis, IBS, history of alcohol abuse who presents with epigastric pain. In the ED, vitals stable. Labs significant for initial WBC of 14.1, now 5.3. Lipase 1,192, hemoglobin 10., LFTs and T. Bili WNL. CT abdomen and pelvis showed findings consistent with pancreatitis: possible small intraparenchymal pseudocyst and heterogenous enhancement pattern in tail region. RUQ U/S showed s/p cholecystectomy with indwelling biliary stent and mild CBD dilatation. Upon examination, patient lying in bed. She reports that she began to have epigastric pain radiating into her back on Wednesday (03/03) and was seen by her outpatient GI, Dr. Mcghee at [facility]. He recommended that she come to [facility] for evaluation due to limited resources at [facility]. She reports her pain was associated with nausea and vomiting, which is now well-controlled with medication regimen. She states that she has a history of pancreatitis, and that she has a biliary stent in place, which is set to be removed in March 2024. She reports her GI doctor, Dr. Mcghee is recommending a pancreatic stent to be placed but he does not have the resources at [facility]. Patient has a history of alcohol abuse, however since her first episode of pancreatitis in November 2023 does not drink much. She does smoke cigarettes daily. She is s/p cholecystectomy (roughly ten years ago). Of note, she reports that she has had monthly episodes of pancreatitis since November 2023, and they all correlate with her menstrual cycle. She inquires regarding potential connection with pelvic vascular congestion syndrome and her recurrent pancreatitis. Allergies: Morphine and codeine Current Medications: Current Facility-Administere d Medications: acetaminophen (Tylenol) tablet 1,000 mg, 1,000 mg, Oral, q8h, 1,000 mg at 03/05/24 2353 OR [DISCONTINUED] acetaminophen (Tylenol) suppository 650 mg, 650 mg, Rectal, q8h, Roman Montero MD enoxaparin (Lovenox) syringe 40 mg, 40 mg, SubCUTAneous, Daily, Reeya Morena, DO, 40 mg at 03/05/242041 folic acid (Folvite) tablet 1 mg, 1 mg, Oral, Daily, Reeya Morena, DO, 1 mg at 03/05/24 08 HYDROmorphone (Dilaudid) injection 0.5 mg, 0.5 mg, IntraVENous, q4h PRN, Reeya Morena, DO, 0.5 mg at 03/06/24 0628 lactated Ringer's infusion, 200 mL/hr, IntraVENous, Continuous, Reeya Morena, DO, Last Rate: 200 mL/hr at 03/06/24 0215, 200 mL/hr at 03/06/24 0215 LORazepam (Ativan) tablet 1 mg, 1 mg, Oral, q1h PRN OR LORazepam (Ativan) injection 1 mg, 1 mg, IntraVENous, q1h PRN OR LORazepam (Ativan) tablet 2 mg, 2 mg, Oral, q1h PRN OR LORazepam (Ativan) injection 2 mg, 2 mg, IntraVENous, q1h PRN, Reeya Morena, DO magnesium sulfate IVPB 4,000 mg, 4,000 mg, IntraVENous, Once, Steffya Morena, DO naloxone (Narcan) 0.4 mg in 0.9% sodium chloride 10 mL syringe, , IntraVENous, PRN, Reeya Morena, DO oxyCODONE (Roxicodone) immediate release tablet 5 mg, 5 mg, Oral, q4h PRN OR oxyCODONE (Roxicodone) immediate release tablet 10 mg, 10 mg, Oral, q4h PRN, Reeya Morena, DO, 10 mg at 03/06/24 0432 polyethylene glycol (PEG) 3350 (Miralax) packet 17 g, 17 g, Oral, Daily PRN, Reeya Morena, DO potassium chloride 40 mEq in NS 500 mL IVPB (premix), 40 mEq, IntraVENous, Once, Steffya Morena, DO prochlorperazine (Compazine) tablet 10 mg, 10 mg, Oral, q6h PRN, 10 mg at 03/05/24 1528 OR prochlorperazine (Compazine) injection 10 mg, 10 mg, IntraVENo (more content not included)... Normal [facility] HEPATIC FUNCTION PANELon Albumin [Mass/Vol] 2.5 g/dL Low 3.5-5.0 [facility] Comment on above: Performed By: #### Radha AB103, LAB15, LAB20 ####Nanny Babysitter: YASMANY CHANG ([phone])[facility] ([facility])[address] [place] [address] ALP [Catalytic activity/Vol] 121 U/L Normal 38-126 [facility] Comment on above: Performed By: #### Radha MATTHEWS, LAB15, LAB20 ####Nanny Babysitter: YASMANY CHANG ([phone])[facility])[address] [place] [address] ALT [Catalytic activity/Vol] 15 U/L Normal 0-34 [facility] Comment on above: Performed By: #### Radha MATTHEWS, LAB15, LAB20 ####Nanny Babysitter: YASMANY CHANG ([phone])[facility])[address] [place] [address] AST [Catalytic activity/Vol] 26 U/L Normal 15-46 [facility] Comment on above: Performed By: #### Radha MATHTEWS, LAB15, LAB20 ####Nanny Babysitter: YASMANY CHANG ([phone])[facility])[address] [place] [address] Bilirubin [Mass/Vol] 0.8 mg/dL Normal 0.2-1.3 [facility] Comment on above: Performed By: #### Radha AB103, LAB15, LAB20 ####Nanny Babysitter: YASMANY CHANG ([phone])[facility])[address] [place] [address] Bilirubin.indirect [Mass/Vol] 0.0 mg/dL Normal 0.0-0.3 [facility] Comment on above: Performed By: #### L AB103, LAB15, LAB20 ####Nanny Babysitter: YASMANY CHANG ([phone])[facility])[address] [place] [address] Protein [Mass/Vol] 5.3 g/dL Low 6.3-8.2 [facility] Comment on above: Performed By: #### Radha MATTHEWS, LAB15, LAB20 ####Nanny Babysitter: YASMANY CHANG ([phone])[facility] ([facility])[address] [place] [address] Hepatic function 2000 panelo n 03-06-2024 Albumin [Mass/Vol] 2.5 g/dL Low 3.5 - 5.0 g/dL [facility] ALP [Catalytic activity/Vol] 121 U/L 38 - 126 U/L [facility] ALT [Catalytic activity/Vol] 15 U/L 0 - 34 U/L [facility] AST [Catalytic activity/Vol] 26 U/L 15 - 46 U/L [facility] Bilirubin [Mass/Vol] 0.8 mg/dL 0.2 - 1 .3 mg/dL [facility] Bilirubin.conjugated [Mass/Vol] 0.0 mg/dL 0.0 - 0.3 mg/dL [facility] Interpretation and review of laboratory results Abnormal [facility] Protein [Mass/Vol] 5.3 g/dL Low 6.3 - 8.2 g/dL [facility] Laboratory - Chemistry and C hemistry - challengeon 03-06-2024 Magnesium [Mass/Vol] 1.4 mg/dL Low 1.6 - 2 .3 mg/dL [facility] MAGNESIUMon 03-06-2024 Magnesium [Mass/Vol] 1.4 mg/dL Low 1.6-2.3 [facility] Comment on above: Performed By: #### Radha MATTHEWS, LAB15, LAB20 ####Nanny Babysitter: YASMANY CHANG ([phone])[facility] ([facility])[address] [place] [address] Magnesium [Mass/Vol]on 03-06 Interpretation and review of laboratory results Abnormal [facility] Progress Noteon 03-06-2024 Progress Note Attestation with edits by Reji Thompson DO at 03/06/2024 1:57 PM I have discussed the care of Feroz Kaiser with the medical student and/or resident. I have personally taken a history, examined the patient, and performed the associated medical decision making activities. I have reviewed & verified the attested documentation. Unless otherwise noted below, this documentation reflects the history, physical exam, and medical decision making that I performed myself. Please see note for my personal highlights or additions in Green. Patient seen and examined by myself at 0830 on 03/06/24 Padron Changes to Care Plan: -Pain is better controlled today after adding IV Dilaudid. Continue current regimen: Scheduled Tylenol 1 g 3 times daily, oxycodone 5-10 mg every 4 hours as needed and IV Dilaudid 0.5 mg every 4 hours as needed for breakthrough pain. -GI consulted, appreciate recommendations. -Continue lactated Ringer's, however will reduce to 150 mL/h. No signs of volume overload. Will plan to discontinue IV fluids when tolerating p.o. intake. 7AM-5PM: contact resident on [facility] Med B team (found by hovering over attending's name on left side of patient's chart) 5PM-7AM: contact AI2 (Med Team A or B) or AI3 (Med Team C or D) 1. Complexity of problems addressed: Acute pancreatitis requiring IV opioids for pain control 3. Drug therapy requiring intensive monitoring for toxicity: IV hydromorphone Med Team Progress Note Feroz Kaiser : 1990(33 y.o.) Date: March 06, 2024 Med Team: Marta Attending: Dr Thompson Chief Complaint: Acute on Chronic Pancreatitis Subjective: - No acute events overnight. - Currently, pt is resting in bed and appears in distress. Mother is present at bedside. Reports pain is more tolerable after addition of Dilaudid 0.5mg IV Q4H. She is okay with continuing her current pain regimen. She is still having epigastric pain that radiates to her mid-low back. She denies any nausea, vomiting, swelling, or shortness of breath. Reports using albuterol once overnight. Reports right-sided chest pain that is sharp and comes and goes. Informed her that GI consult is in place and they will come see her today. Will remain NPO until GI recs in place. She is agreeable to this. Denies issues with urination. Denies any other questions or concerns at this time. PRN meds used in last 24hrs: -Oxy 10 mg x5 -Oxy 5 mg x1 -Dilaudid 0.5 IV x6 -Compazine 10 mg IV x2 -Zofran 4 mg x1 Agree with above. Patient seen and examined at bedside and was resting comfortably. No acute overnight events noted. She states that her pain is much better controlled today. Review of Systems Constitutional: Negative for chills, diaphoresis and fever. Respiratory: Negative for cough and shortness of breath. Cardiovascular: Positive for chest pain (sharp right chest pain). Negative for palpitations and leg swelling. Gastrointestinal: Positive for abdominal distention and abdominal pain (LUQ radiating into back and RUQ). Negative for constipation, diarrhea, nausea and vomiting. Genitourinary: Negative for decreased urine volume, difficulty urinating and dysuria. Scheduled Meds:acetaminophen, 1,000 mg, Oral, q8h enoxaparin, 40 mg, SubCUTAneous, Daily folic acid, 1 mg, Oral, Daily ipratropium-albutero l, 3 mL, Nebulization, BID potassium chloride, 40 mEq, IntraVENous, Once senna-docusate sodium, 1 tablet, Oral, BID thiamine, 100 mg, Oral, Daily Continuous Infusions:lactated Ringer's, 150 mL/hr, Last Rate: 200 mL/hr (03/06/24 1200) Objective: BP 106/80 (BP Location: Right arm, Patient Position: Sitting) Pulse 79 Temp 36.4 ?C (97.5 ?F) (Temporal) Resp (!) 26 Ht 5' 2 (1.575 m) Wt 135 lb (61.2 kg) SpO2 95% BMI 24.69 kg/m? Physical Exam Constitutional: General: She is in acute distress. Appearance: She is ill-appearing. She is not toxic-appearing or diaphoretic. HENT: Head: Normocephalic. Eyes: General: No scleral icterus. Cardiovascular: Rate and Rhythm: Normal rate and regular rhythm. Heart sounds: Normal heart sounds. No murmur heard. No friction rub. No gallop. Pulmonary: Effort: Pulmonary effort is normal. No respiratory distress. Breath sounds: No stridor. Wheezing (bilateral) present. No rhonchi or rales. Chest: Chest wall: No tenderness. Abdominal: General: Bowel sounds are normal. There is distension. Palpations: Abdomen is soft. Tenderness: There is abdominal tenderness. There is guarding (patient positive for guarding when palpated LUQ). There is no right CVA tenderness, left CVA tenderness or rebound. Musculoskeletal: General: No swelling, tenderness, deformity or signs of injury. R (more content not included)... Normal [facility] XR CHEST 1 VIEWon 03-06-2024 XR CHEST 1 VIEW [facility] 1990 [id number] Exam Date/Time: 03/06/2024 12:23 Procedure: XR CHEST 1 VIEW Ordering Provider: THOMPSON JORDAN Reason For Exam: New right sided chest pain and wheezing in setting of acute pancreatitis. EXAM TYPE: RADIOLOGIC EXAMINATION, CHEST, SINGLE VIEW FRONTAL (CXR SINGLE VIEW) EXAM DATE AND TIME: 03/06/2024 12:23 PM EDT INDICATION: Chest pain COMPARISON: CT abdomen pelvis 03/04/2024. TECHNIQUE: A single frontal view of the thorax was obtained and reviewed. Special views: None. IMPRESSION: 1. Lines/Tubes/Devices/ Hardware: None. Please confirm position and function of any catheters or attempted catheters clinically. 2. Lungs: Abnormal. Left mid and lower lung zone volume loss. Underlying infiltrate and effusion suspected. Consider pneumonia.. Appears new since prior CT. Limited due to portable technique. Consider follow-up with PA and lateral chest for persistent symptoms. 3. Pleura: See above. No significant pneumothorax. 4. Heart and mediastinum: Limited due to technique. 5. Upper abdomen: No acute process seen. 6. Thorax:No acute bony process Report Dictated on Electronically Signed By: Joao Barton MD Electronically Signed Date/Time: 03/06/2024 5:13 PM EDT [facility] XR Chest Single viewon 03-06 1. Lines/Tubes/Devices/ Hardware: None. Please confirm position and function of any catheters or attempted catheters clinically. 2. Lungs: Abnormal. Left mid and lower lung zone volume loss. Underlying infiltrate and effusion suspected. Consider pneumonia.. Appears new since prior CT. Limited due to portable technique. Consider follow-up with PA and lateral chest for persistent symptoms. 3. Pleura: See above. No significant pneumothorax. 4. Heart and mediastinum: Limited due to technique. 5. Upper abdomen: No acute process seen. 6. Thorax:No acute bony process Report Dictated on Electronically Signed By: Joao Barton MD Electronically Signed Date/Time: 03/06/2024 5:13 PM EDT [facility] Patient Name[facility]ERO[facility] 1990 [id number] Exam Date/Time: 03/06/2024 12:23 Procedure: XR CHEST 1 VIEW Ordering Provider: THOMPSON JORDAN Reason For Exam: New right sided chest pain and wheezing in setting of acute pancreatitis. EXAM TYPE: RADIOLOGIC EXAMINATION, CHEST, SINGLE VIEW FRONTAL (CXR SINGLE VIEW) EXAM DATE AND TIME: 03/06/2024 12:23 PM EDT INDICATION: Chest pain COMPARISON: CT abdomen pelvis 03/04/2024. TECHNIQUE: A single frontal view of the thorax was obtained and reviewed. Special views: None. [facility] Joao Barton MD - 03/06/2024 Patient Name: FEROZ KAISER : 1990 [facility]#: [id number] Exam Date/Time: 03/06/2024 12:23 Procedure: XR CHEST 1 VIEW Ordering Provider: THOMPSON JORDAN Reason For Exam: New right sided chest pain and wheezing in setting of acute pancreatitis. EXAM TYPE: RADIOLOGIC EXAMINATION, CHEST, SINGLE VIEW FRONTAL (CXR SINGLE VIEW) EXAM DATE AND TIME: 03/06/2024 12:23 PM EDT INDICATION: Chest pain COMPARISON: CT abdomen pelvis 03/04/2024. TECHNIQUE: A single frontal view of the thorax was obtained and reviewed. Special views: None. IMPRESSION: 1. Lines/Tubes/Devices/ Hardware: None. Please confirm position and function of any catheters or attempted catheters clinically. 2. Lungs: Abnormal. Left mid and lower lung zone volume loss. Underlying infiltrate and effusion suspected. Consider pneumonia.. Appears new since prior CT. Limited due to portable technique. Consider follow-up with PA and lateral chest for persistent symptoms. 3. Pleura: See above. No significant pneumothorax. 4. Heart and mediastinum: Limited due to technique. 5. Upper abdomen: No acute process seen. 6. Thorax:No acute bony process Report Dictated on Electronically Signed By: Joao Barton MD Electronically Signed Date/Time: 03/06/2024 5:13 PM EDT [facility] Radiology Study observation (narrative) [place] XR Chest Single viewOrdered By: Joao Barton on 03-06-2024 [facility] [employer] Work Phone: BASIC METABOLIC PANELon 02-16 Anion gap [Moles/Vol] 5 mmol/L Normal 3-13 [facility] Comment on above: Performed By: #### L [id number], LAB18, [id number], LAB15, LAB20 ####Nanny Babysitter: YASMANY CHANG ([phone])[facility] ([id number] Calcium [Mass/Vol] 8.3 mg/dL Low 8.4-10.4 [facility] Comment on above: Performed By: #### L AB143, LAB18, [id number], LAB15, LAB20 ####Nanny Babysitter: YASMANY CHANG ([phone])[facility] ([facility] [place] [address] [place] Chloride [Moles/Vol] 112 mmol/L High 98-107 [facility] Comment on above: Performed By: #### L AB143, LAB18, [id number], LAB15, LAB20 ####Nanny Babysitter: YASMANY CHANG ([phone])[facility] ([facility] [place] [address] CO2 [Moles/Vol] 18 mmol/L Low 22-30 [facility] Comment on above: Performed By: #### L AB143, LAB18, [id number], LAB15, LAB20 ####Nanny Babysitter: YASMANY CHANG ([phone])[facility] ([facility])[address] [place] [address] Creatinine [Mass/Vol] 0.51 mg/dL Low 0.52-1.04 [facility] Comment on above: Performed By: #### L AB143, LAB18, [id number], LAB15, LAB20 ####Nanny Babysitter: YASMANY CHANG ([phone])[facility] ([facility])[address] [place] [address] GLOMERULAR FILTRATION RATE ML/MIN/1.73 SQ M.PREDICTED >90.0 Normal >60.0 [facility] Comment on above: Result Comment: Calc ulation based on the Chronic Kidney Disease Epidemiology Collaboration (CKD-EPI) equation refit without adjustment for race Performed By: #### L AB143, LAB18, HCC219, LAB15, LAB20 ####Nanny Babysitter: YASMANY CHANG ([phone])[facility] ([facility])[address] [place] [address] [place] Glucose [Mass/Vol] 91 mg/dL Normal 70-100 [facility] Comment on above: Performed By: #### L AB143, LAB18, [id number], LAB15, LAB20 ####Nanny Babysitter: YASMANY CHANG ([phone])[facility] ([facility])[address] [place] [address] [place] Potassium [Moles/Vol] 3.5 mmol/L Normal 3.5-5.1 [facility] Comment on above: Performed By: #### L AB143, LAB18, [id number], LAB15, LAB20 ####Nanny Babysitter: YASMANY CHANG ([phone])[facility] ([facility])[address] [place] [address] Sodium [Moles/Vol] 134 mmol/L Low 135-145 [facility] Comment on above: Performed By: #### L AB143, LAB18, [id number], LAB15, LAB20 ####Nanny Babysitter: YASMANY CHANG ([phone])[facility] ([facility])[address] [place] [address] Urea nitrogen [Mass/Vol] 4 mg/dL Low 7-17 [facility] Comment on above: Performed By: #### L AB143, LAB18, [id number], LAB15, LAB20 ####Nanny Babysitter: YASMANY CHANG ([phone])[facility] ([facility])[address] [place] [address] Bacteria identified Cx Nom ( U)Ordered By: Kacy Phillips on 03-05-2024 Interpretation and review of laboratory results Normal [facility] Basic metabolic 1998 panelon 03-05-2024 Anion gap [Moles/Vol] 5 mmol/L 3 - 13 mmol/L [facility] Calcium [Mass/Vol] 8.3 mg/dL Low 8.4 - 10. 4 mg/dL [facility] Chloride [Moles/Vol] 112 mmol/L High 98 - 10 7 mmol/L [facility] CO2 [Moles/Vol] 18 mmol/L Low 22 - 30 mmol/L [facility] Creatinine [Mass/Vol] 0.51 mg/dL Low 0.52 - 1.04 mg/dL [facility] GFR/1.73 sq M.predicted (S/P/Bld) [Vol rate/Area] - PINF [facility] Comment on above: Calculation based on the Chronic Kidney Disease Epidemiology Collaboration (CKD-EPI) equation refit without adjustment for race Glucose [Mass/Vol] 91 mg/dL 70 - 100 mg/dL [facility] Interpretation and review of laboratory results Abnormal [facility] Potassium [Moles/Vol] 3.5 mmol/L 3.5 - 5.1 mmol/L [facility] Sodium [Moles/Vol] 134 mmol/L Low 135 - 145 mmol/L [facility] Urea nitrogen [Mass/Vol] 4 mg/dL Low 7 - 17 mg/dL [facility] CBC W Auto Differential pane l (Bld)Ordered By: Prince Anderson on 03-05-2024 Basophils (Bld) [#/Vol] 0.0 10*3/uL 0.0 - 0.2 10*3/uL [facility] Basophils/100 WBC (Bld) 0.5 % 0.0 - 2.0 % [facility] Eosinophils (Bld) [#/Vol] 0.3 10*3/uL 0.0 - 0.5 10*3/uL [facility] Eosinophils/100 WBC (Bld) 4.5 % 0.0 - 6.0 % [facility] Erythrocyte distribution width (RBC) [Ratio] 13.3 % 11.5 - 15.0 % [facility] Hematocrit (Bld) [Volume fraction] 33.9 % Low 35.0 - 47.0 % [facility] Hemoglobin (Bld) [Mass/Vol] 11.1 g/dL Low 11.7 - 16.0 g/dL [facility] Immature granulocytes (Bld) [#/Vol] 0.0 10*3/uL NINF - 0.1 10*3/uL [facility] Immature granulocytes/100 WBC (Bld) 0.3 % 0.0 - 2.0 % [facility] Interpretation and review of laboratory results Abnormal [facility] Lymphocytes (Bld) [#/Vol] 2.2 10*3/uL 1.0 - 4.3 10*3/uL [facility] Lymphocytes/100 WBC (Bld) 33.4 % 15.0 - 45.0 % [facility] MCH (RBC) [Entitic mass] 30.1 pg 26. 0 - 34.0 pg [facility] MCHC (RBC) [Mass/Vol] 32.7 % 30.5 - 36.0 % [facility] MCV (RBC) [Entitic vol] 91.9 fL 77.0 - 99.0 fL [facility] Monocytes (Bld) [#/Vol] 0.4 10*3/uL 0.0 - 0.9 10*3/uL [facility] Monocytes/100 WBC (Bld) 6.6 % 5.0 - 13.0 % [facility] Neutrophils (Bld) [#/Vol] 3.6 10*3/uL 1.8 - 7.5 10*3/uL [facility] Neutrophils/100 WBC (Bld) 54.7 % 38.0 - 82.0 % [facility] Nucleated RBC/100 WBC (Bld) [Ratio] 0.0 % [facility] Platelet mean volume (Bld) [Entitic vol] 12.1 fL 9.0 - 12.7 fL [facility] Platelets (Bld) [#/Vol] 240 10*3/uL 140 - 440 10*3/uL [facility] RBC (Bld) [#/Vol] 3.69 10*6/uL Low 3.80 - 5.2 0 10*6/uL [facility] WBC (Bld) [#/Vol] 6.5 10*3/uL 3.6 - 10.7 10*3/uL [facility] CBC WITH AUTO DIFFERENTIALon 03-05-2024 Basophils (Bld) [#/Vol] 0.0 10*3/uL Normal 0.0-0.2 [facility] Comment on above: Performed By: #### L [id number] ####Nanny Babysitter: YASMANY CHANG ([phone])[facility])[address] [place] [address] Basophils/100 WBC (Bld) 0.5 % Normal 0.0-2.0 [facility] Comment on above: Performed By: #### L [id number] ####Nanny Babysitter: YASMANY CHANG ([phone])[facility] ([facility])[address] [place] [address] Eosinophils (Bld) [#/Vol] 0.3 10*3/uL Normal 0.0-0.5 [facility] Comment on above: Performed By: #### L [id number] ####Nanny Babysitter: YASMANY CHANG ([phone])[facility] ([facility])[address] [place] [address] [place] Eosinophils/100 WBC (Bld) 4.5 % Normal 0.0-6.0 [facility] Comment on above: Performed By: #### L [id number] ####Nanny Babysitter: YASMANY CHANG ([phone])[facility])[address] [place] [address] Erythrocyte distribution width (RBC) [Ratio] 13.3 % Normal 11.5-15.0 [facility] Comment on above: Performed By: #### L [id number] ####Nanny Babysitter: YASMANY CHANG ([phone])[facility])[address] [place] [address] Hematocrit (Bld) [Volume fraction] 33.9 % Low 35.0-47.0 [facility] Comment on above: Performed By: #### L [id number] ####Nanny Babysitter: YASMANY CHANG ([phone])[address] Hemoglobin (Bld) [Mass/Vol] 11.1 g/dL Low 11.7-16.0 [facility] Comment on above: Performed By: #### L [id number] ####Nanny Babysitter: YASMANY CHANG ([phone])[facility])[address] [place] [address] IMMATURE GRANS % 0.3 % Normal 0.0-2.0 [facility] Comment on above: Performed By: #### L [id number] ####Nanny Babysitter: YASMANY CHANG ([phone])[facility])[address] [place] [address] IMMATURE GRANS ABSOLUTE 0.0 10*3/uL Normal <0.1 [facility] Comment on above: Performed By: #### L [id number] ####Nanny Babysitter: YASMANY CHANG ([phone])[facility])[address] [place] [address] Lymphocytes (Bld) [#/Vol] 2.2 10*3/uL Normal 1.0-4.3 [facility] Comment on above: Performed By: #### L [id number] ####Nanny Babysitter: YASMANY CHANG ([phone])[facility])[address] [place] [address] Lymphocytes/100 WBC (Bld) 33.4 % Normal 15.0-45.0 [facility] Comment on above: Performed By: #### L [id number] ####Nanny Babysitter: YASMANY CHANG ([phone])[facility])[address] [place] [address] MCH (RBC) [Entitic mass] 30.1 pg Normal 26.0-34.0 [facility] Comment on above: Performed By: #### L [id number] ####Nanny Babysitter: YASMANY CHANG ([phone])[facility])[address] [place] [address] MCHC 32.7 % Normal 30.5-36.0 [facility] Comment on above: Performed By: #### L [id number] ####Nanny Babysitter: YASMANY CHANG ([phone])[facility])[address] [place] [address] MCV (RBC) [Entitic vol] 91.9 fL Normal 77.0-99.0 [facility] Comment on above: Performed By: #### L [id number] ####Nanny Babysitter: YASMANY CHANG ([phone])[facility])[address] [place] [address] Monocytes (Bld) [#/Vol] 0.4 10*3/uL Normal 0.0-0.9 [facility] Comment on above: Performed By: #### L [id number] ####Nanny Babysitter: YASMANY CHANG ([phone])[facility])[address] [place] [address] Monocytes/100 WBC (Bld) 6.6 % Normal 5.0-13.0 [facility] Comment on above: Performed By: #### L [id number] ####Nanny Babysitter: YASMANY [phone])[facility] ([facility])[address] [place] [address] NEUTROPHILS ABSOLUTE 3.6 10*3/uL Normal 1.8-7.5 [facility] Comment on above: Performed By: #### L [id number] ####Nanny Babysitter: YASMANY CHANG ([phone])[facility] ([facility])[address] [place] [address] Neutrophils/100 WBC (Bld) 54.7 % Normal 38.0-82.0 [facility] Comment on above: Performed By: #### L [id number] ####Nanny Babysitter: YASMANY CHANG ([phone])[facility] ([facility])[address] [place] [address] NRBC 0.0 /100 WBCs Normal 0.0-2.0 [facility] Comment on above: Performed By: #### L [id number] ####Nanny Babysitter: YASMANY CHANG ([phone])[facility] ([facility])[address] [place] [address] Platelet mean volume (Bld) [Entitic vol] 12.1 fL Normal 9.0-12.7 [facility] Comment on above: Performed By: #### L [id number] ####Nanny Babysitter: YASMANY CHANG ([phone])[facility] ([facility])[address] [place] [address] Platelets (Bld) [#/Vol] 240 10*3/uL Normal 140-440 [facility] Comment on above: Performed By: #### L [id number] ####Nanny Babysitter: YASMANY CHANG ([phone])[facility] ([facility])[address] [place] [address] RBC (Bld) [#/Vol] 3.69 10*6/uL Low 3.80-5.20 [facility] Comment on above: Performed By: #### L [id number] ####Nanny Babysitter: YASMANY CHANG ([phone])[facility] ([facility])[address] [place] [address] WBC (Bld) [#/Vol] 6.5 10*3/uL Normal 3.6-10.7 [facility] Comment on above: Performed By: #### L [id number] ####Nanny Babysitter: YASMANY CHANG ([phone])[facility] ([facility])[address] [place] [address] HCG QUANTITATIVE BLOODon HCG QUANTITATIVE <2 Normal Females <=5 [facility] Comment on above: Order Comment: To be completed on all females upon admission who have not had a hysterectomy or tubal ligation. Result Comment: ORDE R COMMENTS: Values in should double every 2 to 3 days for the first 6 weeks. Elevated concentrations of human chorionic gonadotropin (hCG) measured in the first trimester of are observed in normal , but may serve as an indication of chorionic carcinoma, hydatiform mole, or multiple . Decreasing hCG concentrations indicate threatened or missed , recent termination of , ectopic , gestosis or intrauterine . Kacy- and postmenopausal females may have detectable hCG concentrations (< or = to 14 mIU/mL) due to pituitary production of hCG. Serum follicle-stimulating hormone measurement may aid in ruling-out in this population. Cutoffs of greater than 20 to 45 mIU/mL have been suggested and are method dependent. False-elevations (called phantom human chorionic gonadotropin: hCG) may occur with patients who have human antianimal or heterophilic antibodies. Some specimens may not dilute linearly due to abnormal forms of hCG. Elevated hCG concentrations not associated with are found in patients with other diseases such as tumors of the germ cells, ovaries, bladder, pancreas, stomach, lungs, and liver. This test is not intended to detect or monitor tumors or gestational trophoblastic disease. Performed By: #### L [id number], LAB18, [id number], LAB15, LAB20 ####Nanny Babysitter: YASMANY CHANG ([phone])[facility] ([facility])[address] [place] [address] HEPATIC FUNCTION PANELon Albumin [Mass/Vol] 2.9 g/dL Low 3.5-5.0 [facility] Comment on above: Performed By: #### L AB143, LAB18, [id number], LAB15, LAB20 ####Nanny Babysitter: YASMANY CHANG ([phone])[facility] ([facility])[address] [place] [address] ALP [Catalytic activity/Vol] 138 U/L High 38-126 [facility] Comment on above: Performed By: #### L AB143, LAB18, [id number], LAB15, LAB20 ####Nanny Babysitter: YASMANY CHANG ([phone])[facility] ([facility])[address] [place] [address] ALT [Catalytic activity/Vol] 21 U/L Normal 0-34 [facility] Comment on above: Performed By: #### L AB143, LAB18, [id number], LAB15, LAB20 ####Nanny Babysitter: YASMANY CHANG ([phone])[facility] ([facility])[address] [place] [address] AST [Catalytic activity/Vol] 42 U/L Normal 15-46 [facility] Comment on above: Performed By: #### L AB143, LAB18, [id number], LAB15, LAB20 ####Nanny Babysitter: YASMANY CHANG ([phone])[facility] ([facility])[address] [place] [address] Bilirubin [Mass/Vol] 0.6 mg/dL Normal 0.2-1.3 [facility] Comment on above: Performed By: #### L AB143, LAB18, [id number], LAB15, LAB20 ####Nanny Babysitter: YASMANY CHANG ([phone])[facility])[address] [place] [address] Bilirubin.indirect [Mass/Vol] 0.0 mg/dL Normal 0.0-0.3 [facility] Comment on above: Performed By: #### L AB143, LAB18, [id number], LAB15, LAB20 ####Nanny Babysitter: YASMANY CHANG ([phone])[facility])[address] [place] [address] Protein [Mass/Vol] 6.0 g/dL Low 6.3-8.2 [facility] Comment on above: Performed By: #### L AB143, LAB18, [id number], LAB15, LAB20 ####Nanny Babysitter: YASMANY CHANG ([phone])[facility])[address] [place] [address] Hepatic function 2000 panelo n 03-05-2024 Albumin [Mass/Vol] 2.9 g/dL Low 3.5 - 5.0 g/dL [facility] ALP [Catalytic activity/Vol] 138 U/L High 38 - 126 U/L [facility] ALT [Catalytic activity/Vol] 21 U/L 0 - 34 U/L [facility] AST [Catalytic activity/Vol] 42 U/L 15 - 46 U/L [facility] Bilirubin [Mass/Vol] 0.6 mg/dL 0.2 - 1 .3 mg/dL [facility] Bilirubin.conjugated [Mass/Vol] 0.0 mg/dL 0.0 - 0.3 mg/dL [facility] Protein [Mass/Vol] 6.0 g/dL Low 6.3 - 8.2 g/dL [facility] IDNon 03-05-2024 IDN Problem: Pain - Adult Goal: Verbalizes/displays adequate comfort level or baseline comfort level Outcome: Progressing Problem: Knowledge Deficit Goal: Patient/family/careg iver demonstrates understanding of disease process, treatment plan, medications, and discharge instructions Outcome: Progressing Normal [facility] LIPID PANELon 03-05-2024 Cholesterol [Mass/Vol] 131 mg/dL Normal <200 [facility] Comment on above: Performed By: #### L AB143, LAB18, [id number], LAB15, LAB20 ####Nanny Babysitter: YASMANY CHANG ([phone])[facility] ([facility])[address] [place] [address] Cholesterol in HDL [Mass/Vol] 33 mg/dL Low 40-60 [facility] Comment on above: Performed By: #### L AB143, LAB18, [id number], LAB15, LAB20 ####Nanny Babysitter: YASMANY CHANG ([phone])[facility] ([facility])[address] [place] [address] Cholesterol.total/Choles terol in HDL [Mass ratio] 4 {ratio} Normal [facility] Comment on above: Result Comment: Ref Range: < 3 Low Risk for CHD 3-6 Mod Risk for CHD > 6 High Risk for CHD Performed By: #### L AB143, LAB18, [id number], LAB15, LAB20 ####Nanny Babysitter: YASMANY CHANG ([phone])[facility] ([facility])[address] [place] [address] LOW DENSITY LIPOPROTEIN 56 mg/dL Normal 0-<100 [facility] Comment on above: Performed By: #### L AB143, LAB18, [id number], LAB15, LAB20 ####Nanny Babysitter: YASMANY CHANG ([phone])[facility] ([facility])[address] [place] [address] Triglyceride [Mass/Vol] 212 mg/dL High <150 [facility] Comment on above: Performed By: #### L AB143, LAB18, [id number], LAB15, LAB20 ####Nanny Babysitter: YASMANY CHANG ([phone])[facility] ([facility])[address] [place] [address] Laboratory - Chemistry and C hemistry - challengeon 03-05-2024 HCG.beta subunit Qn Females <=5 mIU/mL [facility] Magnesium [Mass/Vol] 1.6 mg/dL 1.6 - 2 .3 mg/dL [facility] Laboratory - Coagulationon 0 03-05-2024 PT Coag (Bld) [Time] 11.7 s 9.0 - 1 2.0 s [facility] Laboratory - Microbiology an d Antimicrobial susceptibilityOrdered By: Kacy Phillips on 03-05-2024 Bacteria identified Cx Nom (U) No growth (<1,000 CFU/mL) [facility] Lipid 1996 panelon Cholesterol [Mass/Vol] 131 mg/dL NINF - 200 mg/dL [facility] Cholesterol in HDL [Mass/Vol] 33 mg/dL Low 40 - 60 mg/dL [facility] Cholesterol in LDL [Mass/Vol] 56 mg/dL 0 - <100 [facility] Cholesterol.total/Choles terol in HDL [Mass ratio] 4 {ratio} [facility] Comment on above: Ref Range: < 3 Low Risk for CHD 3-6 Mod Risk for CHD > 6 High Risk for CHD Triglyceride [Mass/Vol] 212 mg/dL High NINF - 150 mg/dL [facility] MAGNESIUMon 03-05-2024 Magnesium [Mass/Vol] 1.6 mg/dL Normal 1.6-2.3 [facility] Comment on above: Performed By: #### L AB143, LAB18, [id number], LAB15, LAB20 ####Nanny Babysitter: YASMANY CHANG ([phone])[facility] ([facility])[address] [place] [address] Magnesium [Mass/Vol]on 03-05 Interpretation and review of laboratory results Normal [facility] No Panel Informationon 03-05 Interpretation and review of laboratory results Abnormal [facility] Values in should double every 2 to 3 days for the first 6 weeks. Elevated concentrations of human chorionic gonadotropin (hCG) measured in the first trimester of are observed in normal , but may serve as an indication of chorionic carcinoma, hydatiform mole, or multiple . Decreasing hCG concentrations indicate threatened or missed , recent termination of , ectopic , gestosis or intrauterine . Kacy- and postmenopausal females may have detectable hCG concentrations (< or = to 14 mIU/mL) due to pituitary production of hCG. Serum follicle-stimulating hormone measurement may aid in ruling-out in this population. Cutoffs of greater than 20 to 45 mIU/mL have been suggested and are method dependent. False-elevations (called phantom human chorionic gonadotropin: hCG) may occur with patients who have human antianimal or heterophilic antibodies. Some specimens may not dilute linearly due to abnormal forms of hCG. Elevated hCG concentrations not associated with are found in patients with other diseases such as tumors of the germ cells, ovaries, bladder, pancreas, stomach, lungs, and liver. This test is not intended to detect or monitor tumors or gestational trophoblastic disease. [facility] PROTHROMBIN TIMEon INR Coag (PPP) [Relative time] 1.1 {INR} Normal 0.9-1.1 [facility] Comment on above: Result Comment: Johnnie mmended Anticoagulant Therapy: SEE BELOW ----- INR of 2.0 - 3.0 : - Prophylaxis of Venous Thrombosis (high-risk surgery) - Treatment of Venous Thrombosis - Treatment of Pulmonary Embolism (Includes tissue heart valves, Acute Myocardial Infarction to prevent systemic embolism, Valvular Heart Disease, and Atrial Fibrillation) ----- INR of 2.5 - 3.5 : - Mechanical Prosthetic Valves (high risk) - If oral anticoagulant therapy is used to prevent Myocardial Infarction Performed By: #### L [id number] ####Nanny Babysitter: YASMANY CHANG ([phone])[facility] ([facility])[address] [place] [address] PT Coag (PPP) [Time] 11.7 s Normal 9.0-12.0 [facility] Comment on above: Performed By: #### Radha AB320 ####Nanny Babysitter: YASMANY CHANG ([phone])[facility] ([facility])[address] [place] [address] PT Coag (Bld) [Time]on 03-05 INR Coag (PPP) [Relative time] 1.1 {INR} 0.9 - 1.1 [facility] Comment on above: Recommended Anticoag ulant Therapy: SEE BELOW ----- INR of 2.0 - 3.0 : - Prophylaxis of Venous Thrombosis (high-risk surgery) - Treatment of Venous Thrombosis - Treatment of Pulmonary Embolism (Includes tissue heart valves, Acute Myocardial Infarction to prevent systemic embolism, Valvular Heart Disease, and Atrial Fibrillation) ----- INR of 2.5 - 3.5 : - Mechanical Prosthetic Valves (high risk) - If oral anticoagulant therapy is used to prevent Myocardial Infarction Interpretation and review of laboratory results Normal [facility] Progress Noteon 03-05-2024 Progress Note Attestation signed by Reji Thompson DO at 03/05/2024 3:38 PM Patient admitted overnight by admitting residents. I saw and examined the patient 03/05/24 for the first time. See my notes on H&P. Med Team Progress Note Feroz Kaiser : 1990(33 y.o.) Date: March 05, 2024 Med Team: Marta Attending: Dr Thompson Chief Complaint: Acute on Chronic Pancreatitis Subjective: - Overnight, pain was poorly managed with oxy 2.5-5 Q4H and Tylenol 650mg Q6H. Added Dilaudid 0.5mg IV Q4H prn breakthrough pain - Currently, visibly in pain, curled up in bed. Mother is present at bedside. Her pain is not well controlled. She had difficulty moving in the bed for physical exam - position of comfort was on her left side. She has no appetite and is nauseous. States when she takes oral pain medication it worsens her abdominal pain. Denies chest pain, SOB, palpitations, v/d/c. Discussed pain regimens and agreed on Dilaudid 0.5mg IV Q4H. Denies other questions or concerns at this time. PRN meds used in last 24hrs: Oxy 10, Dilaudid 0.5 IV, and Zofran Review of Systems Constitutional: Positive for appetite change (decrease), chills and fatigue. Negative for activity change, diaphoresis and fever. Respiratory: Negative for chest tightness, shortness of breath and wheezing. Cardiovascular: Negative for chest pain, palpitations and leg swelling. Gastrointestinal: Positive for abdominal distention, abdominal pain (LUQ radiating into back and RUQ) and nausea. Negative for constipation, diarrhea and vomiting. Endocrine: Negative for polyuria. Genitourinary: Negative for dysuria. Neurological: Negative for light-headedness and headaches. Scheduled Meds:acetaminophen, 1,000 mg, Oral, q8h Or acetaminophen, 650 mg, Rectal, q8h enoxaparin, 40 mg, SubCUTAneous, Daily folic acid, 1 mg, Oral, Daily senna-docusate sodium, 1 tablet, Oral, BID thiamine, 100 mg, Oral, Daily Continuous Infusions:lactated Ringer's, 200 mL/hr, Last Rate: 200 mL/hr (03/05/24 1439) Objective: BP 126/81 Pulse 86 Temp 37.1 ?C (98.7 ?F) (Temporal) Resp 18 Ht 5' 2 (1.575 m) Wt 135 lb (61.2 kg) SpO2 98% BMI 24.69 kg/m? Physical Exam Constitutional: General: She is in acute distress. Appearance: Normal appearance. She is ill-appearing. She is not toxic-appearing or diaphoretic. Cardiovascular: Rate and Rhythm: Regular rhythm. Tachycardia present. Pulses: Normal pulses. Pulmonary: Effort: No respiratory distress. Breath sounds: No wheezing or rales. Chest: Chest wall: No tenderness. Abdominal: General: There is distension. Palpations: Abdomen is soft. Tenderness: There is abdominal tenderness. There is guarding. There is no rebound. Musculoskeletal: Right lower leg: No edema. Left lower leg: No edema. Skin: Coloration: Skin is pale. Skin is not jaundiced. Neurological: Mental Status: She is alert and oriented to person, place, and time. [facility] within last 24 hours Auto WBC Date Value Ref Range Status 03/05/2024 6.5 3.6 - 10.7 10*3/uL Final Hemoglobin Date Value Ref Range Status 03/05/2024 11.1 (L) 11.7 - 16.0 g/dL Final Hematocrit Date Value Ref Range Status 03/05/2024 33.9 (L) 35.0 - 47.0 % Final Platelets Date Value Ref Range Status 03/05/2024 240 140 - 440 10*3/uL Final MCV Date Value Ref Range Status 03/05/2024 91.9 77.0 - 99.0 fL Final SODIUM Date Value Ref Range Status 03/05/2024 134 (L) 135 - 145 mmol/L Final POTASSIUM Date Value Ref Range Status 03/05/2024 3.5 3.5 - 5.1 mmol/L Final CHLORIDE Date Value Ref Range Status 03/05/2024 112 (H) 98 - 107 mmol/L Final CARBON DIOXIDE Date Value Ref Range Status 03/05/2024 18 (L) 22 - 30 mmol/L Final UREA NITROGEN Date Value Ref Range Status 03/05/2024 4 (L) 7 - 17 mg/dL Final CREATININE Date Value Ref Range Status 03/05/2024 0.51 (L) 0.52 - 1.04 mg/dL Final GLUCOSE Date Value Ref Range Status 03/05/2024 91 70 - 100 mg/dL Final CALCIUM Date Value Ref Range Status 03/05/2024 8.3 (L) 8.4 - 10.4 mg/dL Final MAGNESIUM Date Value Ref Range Status 03/05/2024 1.6 1.6 - 2.3 mg/dL Final AST (SGOT) Date Value Ref Range Status 03/05/2024 42 15 - 46 U/L Final ALT Date Value Ref Range Status 03/05/2024 21 0 - 34 U/L Final TOTAL PROTEIN Date Value Ref Range Status 03/05/2024 6.0 (L) 6.3 - 8.2 g/dL Final BILIRUBIN, TOTAL Date Value Ref Range Status 03/05/2024 0.6 0.2 - 1.3 mg/dL Final ALKALINE PHOSPHATASE Date Value Ref Range Status 03/05/2024 138 (H) 38 - 126 U/L Final INR Date Value Ref Range Status 03/05/2024 1.1 0.9 - 1.1 Final Comment: Recommended Anticoagulant Therapy: SEE BELOW ----- INR of 2.0 - 3.0 : (more content not included)... Normal [facility] US ABDOMEN LIMITEDon 024 US ABDOMEN LIMITED Patient Name: FEROZ KIASER : 1990 [facility]#: [id number] Exam Date/Time: 03/05/2024 14:02 Procedure: US ABDOMEN LIMITED Ordering Provider: THOMPSON JORDAN Reason For Exam: Pancreatitis ULTRASOUND OF RIGHT UPPER QUADRANT CLINICAL INDICATION: Pancreatitis TECHNIQUE: Real-time ultrasound of the right upper quadrant of the abdomen. COMPARISON: CT abdomen and pelvis, 1 day previous. FINDINGS: Gallbladder surgically absent. Ovoid and heterogeneously hypoechoic focus adjacent to the gallbladder fossa measuring approximately 3 x 2 cm may represent contracted segment of 2nd portion of duodenum noted on comparison. Indwelling biliary stent noted, with mild common bile duct dilatation measuring 9.3 mm in maximal diameter. Negative sonographic Vasquez's sign. Liver has diffusely increased echogenicity without focal abnormality. Right kidney measures 10.6 cm in longest dimension and is grossly unremarkable. Limited visualized pancreatic head parenchyma grossly unremarkable. IMPRESSION: 1. Status post cholecystectomy, with indwelling biliary stent and mild common bile duct dilatation, as reported. 2. Ovoid, hypoechoic focus adjacent to gallbladder fossa may represent contracted segment of 2nd portion of duodenum. Follow-up as indicated. 3. Findings compatible with fatty infiltration in the liver versus nonspecific hepatocellular disease. Report Dictated on Electronically Signed By: Ken Pablo MD Electronically Signed Date/Time: 03/05/2024 6:20 PM EDT [facility] US Abdomen limitedon 024 1. Status post cholecystectomy, with indwelling biliary stent and mild common bile duct dilatation, as reported. 2. Ovoid, hypoechoic focus adjacent to gallbladder fossa may represent contracted segment of 2nd portion of duodenum. Follow-up as indicated. 3. Findings compatible with fatty infiltration in the liver versus nonspecific hepatocellular disease. Report Dictated on Electronically Signed By: Ken Pablo MD Electronically Signed Date/Time: 03/05/2024 6:20 PM EDT [facility] 1990 [id number] Exam Date/Time: 03/05/2024 14:02 Procedure: US ABDOMEN LIMITED Ordering Provider: THOMPSON JORDAN Reason For Exam: Pancreatitis ULTRASOUND OF RIGHT UPPER QUADRANT CLINICAL INDICATION: Pancreatitis TECHNIQUE: Real-time ultrasound of the right upper quadrant of the abdomen. COMPARISON: CT abdomen and pelvis, 1 day previous. FINDINGS: Gallbladder surgically absent. Ovoid and heterogeneously hypoechoic focus adjacent to the gallbladder fossa measuring approximately 3 x 2 cm may represent contracted segment of 2nd portion of duodenum noted on comparison. Indwelling biliary stent noted, with mild common bile duct dilatation measuring 9.3 mm in maximal diameter. Negative sonographic Vsaquez's sign. Liver has diffusely increased echogenicity without focal abnormality. Right kidney measures 10.6 cm in longest dimension and is grossly unremarkable. Limited visualized pancreatic head parenchyma grossly unremarkable. [facility] Ken Pablo MD - 03/05/2024 Patient Name: [facility]ERO[facility]AIS[facility] 1990 [id number] Exam Date/Time: 03/05/2024 14:02 Procedure: US ABDOMEN LIMITED Ordering Provider: THOMPSON JORDAN Reason For Exam: Pancreatitis ULTRASOUND OF RIGHT UPPER QUADRANT CLINICAL INDICATION: Pancreatitis TECHNIQUE: Real-time ultrasound of the right upper quadrant of the abdomen. COMPARISON: CT abdomen and pelvis, 1 day previous. FINDINGS: Gallbladder surgically absent. Ovoid and heterogeneously hypoechoic focus adjacent to the gallbladder fossa measuring approximately 3 x 2 cm may represent contracted segment of 2nd portion of duodenum noted on comparison. Indwelling biliary stent noted, with mild common bile duct dilatation measuring 9.3 mm in maximal diameter. Negative sonographic Vasquez's sign. Liver has diffusely increased echogenicity without focal abnormality. Right kidney measures 10.6 cm in longest dimension and is grossly unremarkable. Limited visualized pancreatic head parenchyma grossly unremarkable. IMPRESSION: 1. Status post cholecystectomy, with indwelling biliary stent and mild common bile duct dilatation, as reported. 2. Ovoid, hypoechoic focus adjacent to gallbladder fossa may represent contracted segment of 2nd portion of duodenum. Follow-up as indicated. 3. Findings compatible with fatty infiltration in the liver versus nonspecific hepatocellular disease. Report Dictated on Electronically Signed By: Ken Pablo MD Electronically Signed Date/Time: 03/05/2024 6:20 PM EDT [facility] Radiology Study observation (narrative) [facility] BASIC METABOLIC PANELon 02-16 Anion gap [Moles/Vol] 11 mmol/L Normal 3-13 [facility] Comment on above: Performed By: #### L AB99, LAB15, LAB46, WCL880, LAB20 ####Nanny Babysitter: YASMANY CHANG ([phone])[facility] ([facility] Calcium [Mass/Vol] 9.8 mg/dL Normal 8.4-10.4 [facility] Comment on above: Performed By: #### L AB99, LAB15, LAB46, DRW688, LAB20 ####Nanny Babysitter: YASMANY CHANG ([phone])[facility] ([facility] [place] [address] [place] Chloride [Moles/Vol] 106 mmol/L Normal 98-107 [facility] Comment on above: Performed By: #### L AB99, LAB15, LAB46, QSN079, LAB20 ####Nanny Babysitter: YASMANY CHANG ([phone])[facility] ([facility])[address] [place] [address] [place] CO2 [Moles/Vol] 17 mmol/L Low 22-30 [facility] Comment on above: Performed By: #### L AB99, LAB15, LAB46, ABI701, LAB20 ####Nanny Babysitter: YASMANY CHANG ([phone])[facility] ([facility])[address] [place] [address] Creatinine [Mass/Vol] 0.76 mg/dL Normal 0.52-1.04 [facility] Comment on above: Performed By: #### L AB99, LAB15, LAB46, [id number], LAB20 ####Nanny Babysitter: YASMANY CHANG ([phone])[facility] ([facility])[address] [place] [address] GLOMERULAR FILTRATION RATE ML/MIN/1.73 SQ M.PREDICTED >90.0 Normal >60.0 [facility] Comment on above: Result Comment: Calc ulation based on the Chronic Kidney Disease Epidemiology Collaboration (CKD-EPI) equation refit without adjustment for race Performed By: #### L AB99, LAB15, LAB46, [id number], LAB20 ####Nanny Babysitter: YASMANY CHANG ([phone])[facility] ([facility])[address] [place] [address] [place] Glucose [Mass/Vol] 101 mg/dL High 70-100 [facility] Comment on above: Performed By: #### L AB99, LAB15, LAB46, [id number], LAB20 ####Nanny Babysitter: YASMANY CHANG ([phone])[facility] ([facility])[address] [place] [address] [place] Potassium [Moles/Vol] 4.0 mmol/L Normal 3.5-5.1 [facility] Comment on above: Performed By: #### L AB99, LAB15, LAB46, [id number], LAB20 ####Nanny Babysitter: YASMANY CHANG ([phone])[facility] ([facility])[address] [place] [address] Sodium [Moles/Vol] 135 mmol/L Normal 135-145 [facility] Comment on above: Performed By: #### L AB99, LAB15, LAB46, [id number], LAB20 ####Nanny Babysitter: YASMANY CHANG ([phone])[facility] ([facility])[address] [place] [address] Urea nitrogen [Mass/Vol] 12 mg/dL Normal 7-17 [facility] Comment on above: Performed By: #### L AB99, LAB15, LAB46, [id number], LAB20 ####Nanny Babysitter: YASMANY CHANG ([phone])[facility] ([facility])[address] [place] [address] Basic metabolic 1998 panelon 03-04-2024 Anion gap [Moles/Vol] 11 mmol/L 3 - 13 mmol/L [facility] Calcium [Mass/Vol] 9.8 mg/dL 8.4 - 10. 4 mg/dL [facility] Chloride [Moles/Vol] 106 mmol/L 98 - 10 7 mmol/L [facility] CO2 [Moles/Vol] 17 mmol/L Low 22 - 30 mmol/L [facility] Creatinine [Mass/Vol] 0.76 mg/dL 0.52 - 1.04 mg/dL [facility] GFR/1.73 sq M.predicted (S/P/Bld) [Vol rate/Area] - PINF [facility] Comment on above: Calculation based on the Chronic Kidney Disease Epidemiology Collaboration (CKD-EPI) equation refit without adjustment for race Glucose [Mass/Vol] 101 mg/dL High 70 - 100 mg/dL [facility] Potassium [Moles/Vol] 4.0 mmol/L 3.5 - 5.1 mmol/L [facility] Sodium [Moles/Vol] 135 mmol/L 135 - 145 mmol/L [facility] Urea nitrogen [Mass/Vol] 12 mg/dL 7 - 17 mg/dL [facility] CBC W Auto Differential pane l (Bld)on 03-04-2024 Basophils (Bld) [#/Vol] 0.1 10*3/uL 0.0 - 0.2 10*3/uL [facility] Basophils/100 WBC (Bld) 0.4 % 0.0 - 2.0 % [facility] Eosinophils (Bld) [#/Vol] 0.4 10*3/uL 0.0 - 0.5 10*3/uL [facility] Eosinophils/100 WBC (Bld) 3.0 % 0.0 - 6.0 % [facility] Erythrocyte distribution width (RBC) [Ratio] 13.2 % 11.5 - 15.0 % [facility] Hematocrit (Bld) [Volume fraction] 43.4 % 35.0 - 47.0 % [facility] Hemoglobin (Bld) [Mass/Vol] 14.0 g/dL 11.7 - 16.0 g/dL [facility] Immature granulocytes (Bld) [#/Vol] 0.1 10*3/uL High NINF - 0.1 10*3/uL [facility] Immature granulocytes/100 WBC (Bld) 0.4 % 0.0 - 2.0 % [facility] Interpretation and review of laboratory results Abnormal [facility] IPF 8 [facility] Lymphocytes (Bld) [#/Vol] 3.3 10*3/uL 1.0 - 4.3 10*3/uL [facility] Lymphocytes/100 WBC (Bld) 23.2 % 15.0 - 45.0 % [facility] MCH (RBC) [Entitic mass] 29.6 pg 26. 0 - 34.0 pg [facility] MCHC (RBC) [Mass/Vol] 32.3 % 30.5 - 36.0 % [facility] MCV (RBC) [Entitic vol] 91.8 fL 77.0 - 99.0 fL [facility] Monocytes (Bld) [#/Vol] 0.6 10*3/uL 0.0 - 0.9 10*3/uL [facility] Monocytes/100 WBC (Bld) 4.5 % Low 5.0 - 13.0 % [facility] Neutrophils (Bld) [#/Vol] 9.7 10*3/uL High 1.8 - 7.5 10*3/uL [facility] Neutrophils/100 WBC (Bld) 68.5 % 38.0 - 82.0 % [facility] Nucleated RBC/100 WBC (Bld) [Ratio] 0.0 % [facility] Platelet mean volume (Bld) [Entitic vol] 11.6 fL 9.0 - 12.7 fL [facility] Platelets (Bld) [#/Vol] 409 10*3/uL 140 - 440 10*3/uL [facility] RBC (Bld) [#/Vol] 4.73 10*6/uL 3.80 - 5.2 0 10*6/uL [facility] WBC (Bld) [#/Vol] 14.1 10*3/uL High 3.6 - 10.7 10*3/uL [facility] CBC WITH AUTO DIFFERENTIALon 03-04-2024 Basophils (Bld) [#/Vol] 0.1 10*3/uL Normal 0.0-0.2 [facility] Comment on above: Performed By: #### L [id number] ####Nanny Babysitter: YASMANY CHANG ([phone])[facility])[address] [place] [address] Basophils/100 WBC (Bld) 0.4 % Normal 0.0-2.0 [facility] Comment on above: Performed By: #### L [id number] ####Nanny Babysitter: YASMANY CHANG ([phone])[facility])[address] [place] [address] [place] Eosinophils (Bld) [#/Vol] 0.4 10*3/uL Normal 0.0-0.5 [facility] Comment on above: Performed By: #### L [id number] ####Nanny Babysitter: YASMANY [phone])[facility])[address] [place] [address] [place] Eosinophils/100 WBC (Bld) 3.0 % Normal 0.0-6.0 [facility] Comment on above: Performed By: #### L [id number] ####Nanny Babysitter: YASMANY [phone])[facility])[address] [place] [address] Erythrocyte distribution width (RBC) [Ratio] 13.2 % Normal 11.5-15.0 [facility] Comment on above: Performed By: #### L [id number] ####Nanny Babysitter: YASMANY CHANG ([phone])[facility])[address] [place] [address] Hematocrit (Bld) [Volume fraction] 43.4 % Normal 35.0-47.0 [facility] Comment on above: Performed By: #### L [id number] ####Nanny Babysitter: YASMANY CHANG ([phone])[facility])[address] [place] [address] Hemoglobin (Bld) [Mass/Vol] 14.0 g/dL Normal 11.7-16.0 [facility] Comment on above: Performed By: #### L [id number] ####Nanny Babysitter: YASMANY CHANG ([phone])[facility] ([facility])[address] [place] [address] IMMATURE GRANS % 0.4 % Normal 0.0-2.0 [facility] Comment on above: Performed By: #### L [id number] ####Nanny Babysitter: YASMANY CHANG ([phone])[facility])[address] [place] [address] IMMATURE GRANS ABSOLUTE 0.1 10*3/uL High <0.1 [facility] Comment on above: Performed By: #### L [id number] ####Nanny Babysitter: YASMANY CHANG ([phone])[facility])[address] [place] [address] [place] IPF 8 Normal [facility] Comment on above: Performed By: #### L [id number] ####Nanny Babysitter: YASMANY CHANG ([phone])[facility])[address] [place] [address] Lymphocytes (Bld) [#/Vol] 3.3 10*3/uL Normal 1.0-4.3 [facility] Comment on above: Performed By: #### L [id number] ####Nanny Babysitter: YASMANY CHANG ([phone])[facility])[address] [place] [address] Lymphocytes/100 WBC (Bld) 23.2 % Normal 15.0-45.0 [facility] Comment on above: Performed By: #### L [id number] ####Nanny Babysitter: YASMANY CHANG ([phone])[facility])[address] [place] [address] MCH (RBC) [Entitic mass] 29.6 pg Normal 26.0-34.0 [facility] Comment on above: Performed By: #### L [id number] ####Nanny Babysitter: YASMANY CHANG ([phone])[facility])[address] [place] [address] MCHC 32.3 % Normal 30.5-36.0 [facility] Comment on above: Performed By: #### L [id number] ####Nanny Babysitter: YASMANY CHANG ([phone])[facility])[address] [place] [address] MCV (RBC) [Entitic vol] 91.8 fL Normal 77.0-99.0 [facility] Comment on above: Performed By: #### L [id number] ####Nanny Babysitter: YASMANY CHANG ([phone])[facility])[address] [place] [address] Monocytes (Bld) [#/Vol] 0.6 10*3/uL Normal 0.0-0.9 [facility] Comment on above: Performed By: #### L [id number] ####Nanny Babysitter: YASMANY CHANG ([phone])[facility])[address] [place] [address] Monocytes/100 WBC (Bld) 4.5 % Low 5.0-13.0 [facility] Comment on above: Performed By: #### L [id number] ####Nanny Babysitter: YASMANY CHANG ([phone])[facility] ([facility])[address] [place] [address] NEUTROPHILS ABSOLUTE 9.7 10*3/uL High 1.8-7.5 [facility] Comment on above: Performed By: #### L [id number] ####Nanny Babysitter: YASMANY CHANG ([phone])[facility] ([facility])[address] [place] [address] Neutrophils/100 WBC (Bld) 68.5 % Normal 38.0-82.0 [facility] Comment on above: Performed By: #### L [id number] ####Nanny Babysitter: YASMANY CHANG ([phone])[facility] ([facility])[address] [place] [address] NRBC 0.0 /100 WBCs Normal 0.0-2.0 [facility] Comment on above: Performed By: #### L [id number] ####Nanny Babysitter: YASMANY CHANG ([phone])[facility] ([facility])[address] [place] [address] Platelet mean volume (Bld) [Entitic vol] 11.6 fL Normal 9.0-12.7 [facility] Comment on above: Performed By: #### L [id number] ####Nanny Babysitter: YASMANY CHANG ([phone])[facility] ([facility])[address] [place] [address] Platelets (Bld) [#/Vol] 409 10*3/uL Normal 140-440 [facility] Comment on above: Performed By: #### L [id number] ####Nanny Babysitter: YASMANY CHANG ([phone])[facility] ([facility])[address] [place] [address] RBC (Bld) [#/Vol] 4.73 10*6/uL Normal 3.80-5.20 [facility] Comment on above: Performed By: #### L [id number] ####Nanny Babysitter: YASMANY CHANG ([phone])[facility] ([facility])[address] [place] [address] WBC (Bld) [#/Vol] 14.1 10*3/uL High 3.6-10.7 [facility] Comment on above: Performed By: #### L [id number] ####Nanny Babysitter: YASMANY CHANG ([phone])[facility])[address] [place] [address] COMPLETE URINALYSISon 2023 BACTERIA (#/HPF) IN URINE Moderate Abnormal Negative [facility] Comment on above: Performed By: #### L [id number] ####Nanny Babysitter: YASMANY CHANG ([phone])[facility])[address] [place] [address] BILIRUBIN, TOTAL PRESENCE IN URINE Negative Normal Negative [facility] Comment on above: Performed By: #### L [id number] ####Nanny Babysitter: YASMANY CHANG ([phone])[facility])[address] [place] [address] Clarity (U) Turbid Abnormal Clear [facility] Comment on above: Performed By: #### L [id number] ####Nanny Babysitter: YASMANY CHANG ([phone])[facility])[address] [place] [address] Color (U) Yellow Normal Lt. Yellow [facility] Comment on above: Performed By: #### L [id number] ####Nanny Babysitter: YASMANY CHANG ([phone])[facility] ([facility])[address] [place] [address] GLUCOSE (MG/DL) IN URINE Normal Normal Nor mal (<70) [facility] Comment on above: Performed By: #### L [id number] ####Nanny Babysitter: YASMANY CHANG ([phone])[facility])[address] [place] [address] HEMOGLOBIN PRESENCE IN URINE Negative Normal Negative [facility] Comment on above: Performed By: #### L [id number] ####Nanny Babysitter: YASMANY CHANG ([phone])[facility])[address] [place] [address] HYALINE CASTS (#/LPF) IN URINE SEDIMENT BY MICROSCOPY 0-2 Abnormal Negative [facility] Comment on above: Performed By: #### L [id number] ####Nanny Babysitter: YASMANY CHANG ([phone])[facility] ([facility])[address] [place] [address] Ketones Ql (U) Trace Abnormal Negative [facility] Comment on above: Performed By: #### L [id number] ####Nanny Babysitter: YASMANY CHANG ([phone])[facility] ([facility])[address] [place] [address] LEUKOCYTE ESTERASE PRESENCE IN URINE BY TEST STRIP 75 Kevin/uL Abnormal Negative [facility] Comment on above: Performed By: #### L [id number] ####Nanny Babysitter: YASMANY CHANG ([phone])[facility] ([facility])[address] [place] [address] MUCUS (#/LPF) IN URINE SEDIMENT Few Normal Negative [facility] Comment on above: Performed By: #### L [id number] ####Nanny Babysitter: YASMANY CHANG ([phone])[facility] ([facility])[address] [place] [address] NITRITE PRESENCE IN URINE Negative Normal Negative [facility] Comment on above: Performed By: #### L [id number] ####Nanny Babysitter: YASMANY CHANG ([phone])[facility] ([facility])[address] [place] [address] pH (U) 5.5 [pH] Normal 5.0-8.0 [facility] Comment on above: Performed By: #### L [id number] ####Nanny Babysitter: YASMANY CHANG ([phone])[facility])[address] [place] [address] Protein (U) [Mass/Vol] 30 mg/dL Abnormal Negative [facility] Comment on above: Performed By: #### L [id number] ####Nanny Babysitter: YASMANY CHANG ([phone])[facility] ([facility])[address] [place] [address] RBC (#/HPF) IN URINE SEDIMENT 0-2 Normal 0-2 [facility] Comment on above: Performed By: #### L [id number] ####Nanny Babysitter: YASMANY CHANG ([phone])[facility])[address] [place] [address] Specific gravity (U) [Rel density] 1.027 Normal 1.005-1.030 [facility] Comment on above: Performed By: #### L [id number] ####Nanny Babysitter: YASMANY CHANG ([phone])[facility])[address] [place] [address] SQUAMOUS EPITHELIAL CELLS (#/HPF) IN URINE SEDIMENT 11-25 Abnormal 3-5 [facility] Comment on above: Performed By: #### L [id number] ####Nanny Babysitter: YASMANY CHANG ([phone])[facility] ([facility])[address] [place] [address] UROBILINOGEN (MG/DL) IN URINE 2 mg/dL Abnormal Normal (0-1) [facility] Comment on above: Performed By: #### L [id number] ####Nanny Babysitter: YASMANY CHANG ([phone])[facility] ([facility])[address] [place] [address] WBC (LEUKOCYTE) (#/HPF) IN URINE SEDIMENT 11-25 Abnormal 0-5 [facility] Comment on above: Performed By: #### L [id number] ####Nanny Babysitter: YASMANY CHANG ([phone])[facility])[address] [place] [address] WBC CASTS (#/LPF) IN URINE 3-5 Abnormal Negative [facility] Comment on above: Performed By: #### L [id number] ####Nanny Babysitter: YASMANY CHANG ([phone])[facility])[address] [place] [address] CT ABDOMEN PELVIS W CONTRAST on 03-04-2024 CT ABDOMEN PELVIS W CONTRAST Patient Name: FEROZ KAISER : 1990 [facility]#: [id number] Exam Date/Time: 03/04/2024 17:42 Procedure: CT ABDOMEN PELVIS W CONTRAST Ordering Provider: TURNER KEVIN Reason For Exam: Pancreatitis, acute, severe CT ABDOMEN AND PELVIS WITH CONTRAST CLINICAL INDICATION: Pancreatitis, acute, severe TECHNIQUE: CT scan of the abdomen and pelvis, with IV contrast. Multiplanar reformations. Dose reduction was employed with automated exposure control. COMPARISON: None. FINDINGS: Abdomen: Visualized lung bases grossly unremarkable. Gallbladder surgically absent. Indwelling biliary stent extends from the elsa hepatis region to duodenum without significant biliary duct dilatation. Liver shows diffusely decreased attenuation without focal abnormality. Spleen without significant abnormality. Pancreas prominent/enlarged and demonstrates diffuse soft tissue stranding and infiltration in the peripancreatic fat. Rounded hypodensity noted in the body-tail region measuring 1.2 cm may represent pseudocyst. Band-like focus of decreased attenuation in the tail may be due to incomplete or heterogeneous enhancement, but nonspecific. No other apparent pseudocyst formation. Kidneys without significant abnormality. Adrenal glands without significant abnormality. Pelvis: Incomplete distention in the ascending and transverse colon, with some wall/fold prominence and mural enhancement may be reactive or inflammatory. No evidence of mechanical obstruction. Appendix within normal limits. No significant, free peritoneal fluid or discrete abscess. Abdominal aorta is nonaneurysmal. Multiple, serpiginous parametrial vessels, most pronounced on the left. Probable follicular change in the left ovary measuring 1.2 cm. Axial skeleton grossly intact. IMPRESSION: 1. Findings compatible with pancreatitis, including possible small intraparenchymal pseudocyst and heterogeneous enhancement pattern in the tail region, nonspecific. Correlation with appropriate laboratory values and follow-up to resolution suggested. 2. Hepatic steatosis. 3. Findings which may be due to incomplete or nondistention versus nonspecific postinflammatory change in the ascending and transverse colon of uncertain etiology or chronicity. Follow-up as indicated. 4. Findings which may be associated with pelvic vascular congestion syndrome. Report Dictated on Electronically Signed By: Ken Pablo MD Electronically Signed Date/Time: 03/04/2024 5:50 PM EDT [facility] CT Abdomen and Pelvis W cont rast Yessy 03-04-2024 1. Findings compatible with pancreatitis, including possible small intraparenchymal pseudocyst and heterogeneous enhancement pattern in the tail region, nonspecific. Correlation with appropriate laboratory values and follow-up to resolution suggested. 2. Hepatic steatosis. 3. Findings which may be due to incomplete or nondistention versus nonspecific postinflammatory change in the ascending and transverse colon of uncertain etiology or chronicity. Follow-up as indicated. 4. Findings which may be associated with pelvic vascular congestion syndrome. Report Dictated on Electronically Signed By: Ken Pablo MD Electronically Signed Date/Time: 03/04/2024 5:50 PM EDT [email or web address] Patient Name: FEROZ KAISER : 1990 [facility]#: [id number] Exam Date/Time: 03/04/2024 17:42 Procedure: CT ABDOMEN PELVIS W CONTRAST Ordering Provider: TURNER KEVIN Reason For Exam: Pancreatitis, acute, severe CT ABDOMEN AND PELVIS WITH CONTRAST CLINICAL INDICATION: Pancreatitis, acute, severe TECHNIQUE: CT scan of the abdomen and pelvis, with IV contrast. Multiplanar reformations. Dose reduction was employed with automated exposure control. COMPARISON: None. FINDINGS: Abdomen: Visualized lung bases grossly unremarkable. Gallbladder surgically absent. Indwelling biliary stent extends from the elsa hepatis region to duodenum without significant biliary duct dilatation. Liver shows diffusely decreased attenuation without focal abnormality. Spleen without significant abnormality. Pancreas prominent/enlarged and demonstrates diffuse soft tissue stranding and infiltration in the peripancreatic fat. Rounded hypodensity noted in the body-tail region measuring 1.2 cm may represent pseudocyst. Band-like focus of decreased attenuation in the tail may be due to incomplete or heterogeneous enhancement, but nonspecific. No other apparent pseudocyst formation. Kidneys without significant abnormality. Adrenal glands without significant abnormality. Pelvis: Incomplete distention in the ascending and transverse colon, with some wall/fold prominence and mural enhancement may be reactive or inflammatory. No evidence of mechanical obstruction. Appendix within normal limits. No significant, free peritoneal fluid or discrete abscess. Abdominal aorta is nonaneurysmal. Multiple, serpiginous parametrial vessels, most pronounced on the left. Probable follicular change in the left ovary measuring 1.2 cm. Axial skeleton grossly intact. [employer] Ken Pablo MD - 03/04/2024 [facility] 1990 [id number] Exam Date/Time: 03/04/2024 17:42 Procedure: CT ABDOMEN PELVIS W CONTRAST Ordering Provider: TURNER KEVIN Reason For Exam: Pancreatitis, acute, severe CT ABDOMEN AND PELVIS WITH CONTRAST CLINICAL INDICATION: Pancreatitis, acute, severe TECHNIQUE: CT scan of the abdomen and pelvis, with IV contrast. Multiplanar reformations. Dose reduction was employed with automated exposure control. COMPARISON: None. FINDINGS: Abdomen: Visualized lung bases grossly unremarkable. Gallbladder surgically absent. Indwelling biliary stent extends from the elsa hepatis region to duodenum without significant biliary duct dilatation. Liver shows diffusely decreased attenuation without focal abnormality. Spleen without significant abnormality. Pancreas prominent/enlarged and demonstrates diffuse soft tissue stranding and infiltration in the peripancreatic fat. Rounded hypodensity noted in the body-tail region measuring 1.2 cm may represent pseudocyst. Band-like focus of decreased attenuation in the tail may be due to incomplete or heterogeneous enhancement, but nonspecific. No other apparent pseudocyst formation. Kidneys without significant abnormality. Adrenal glands without significant abnormality. Pelvis: Incomplete distention in the ascending and transverse colon, with some wall/fold prominence and mural enhancement may be reactive or inflammatory. No evidence of mechanical obstruction. Appendix within normal limits. No significant, free peritoneal fluid or discrete abscess. Abdominal aorta is nonaneurysmal. Multiple, serpiginous parametrial vessels, most pronounced on the left. Probable follicular change in the left ovary measuring 1.2 cm. Axial skeleton grossly intact. IMPRESSION: 1. Findings compatible with pancreatitis, including possible small intraparenchymal pseudocyst and heterogeneous enhancement pattern in the tail region, nonspecific. Correlation with appropriate laboratory values and follow-up to resolution suggested. 2. Hepatic steatosis. 3. Findings which may be due to incomplete or nondistention versus nonspecific postinflammatory change in the ascending and transverse colon of uncertain etiology or chronicity. Follow-up as indicated. 4. Findings which may be associated with pelvic vascular congestion syndrome. Report Dictated on Electronically Signed By: Ken Pablo MD Electronically Signed Date/Time: 03/04/2024 5:50 PM EDT [employer] Radiology Study observation (narrative) [facility] [place] [facility] CT Abdomen and Pelvis W cont rast IVOrdered By: Ken Pablo on 03-04-2024 [employer] Work Phone: ED Provider Noteon ED Provider Note Emergency Department Encounter [facility] EMERGENCY DEPT Patient: Feroz Kaiser : 1990 Date of Evaluation: 03/04/2024 ED Provider: Henry Turner MD I saw the patient as the Clinician in Triage and established acuity, and ordered appropriate tests to develop basic plan of care. Patient will be seen by MELVA who will evaluate the patient.. I did revise the MELVA I wore appropriate PPE for the entirety of this encounter. Brief HPI: In brief, Feroz Kaiser is a 33 y.o. that presents with chief complaint of abdominal pain. Patient has history of pancreatitis. States her GI doctor feels that she needs evaluated here because she may need specialized testing that her GI doctor could not provide. Complains of recurrent pancreatitis pain of uncertain etiology. She has nausea vomiting diarrhea. No fevers. Focused Physical exam: Awake and alert. Afebrile. Nontoxic. Lungs clear to auscultation. Heart regular rate and rhythm. Abdomen soft nondistended with tenderness across the upper abdomen. Plan/MDM: Lab studies obtained. Lipase is 1100. White count of 14. Lab studies reviewed by this examiner. I do feel patient needs to be admitted for pain control and for further treatment of pancreatitis. Patients symptoms are consistent with sepsis, severe sepsis, or septic shock (If yes use .sepsiscoremeasure ): no Please see subsequent provider note for further details and disposition This will serve as my Supervisory note and shared attestation. I did perform a substantive portion of the visit including all aspects of the Medical Decision Making. All diagnostic, treatment, and disposition decisions were made by myself in conjunction with the MELVA. For all further details of the patient's emergency department visit, please see their documentation. (Comment: Please note this report has been produced using speech recognition software and may contain errors related to that system including errors in grammar, punctuation, and spelling as well as words and phrases that may be inappropriate. If there are any questions or concerns please feel free to contact the dictating provider for clarification) Henry Turner MD [employer] Henry Turner MD 03/04/24 1543 Normal [facility] ED Provider Note EMERGENCY DEPARTMENT ENCOUNTER Pt Name: Feroz Kaiser Birthdate 1990 Date of evaluation: 03/04/2024 ED Provider: Di Valerio PA-C CHIEF COMPLAINT Chief Complaint Patient presents with Abdominal Pain RUQ abd pain since november 20 admission for pancreatitis HISTORY OF PRESENT ILLNESS (Location/Symptom, Timing/Onset, Context/Setting, Quality, Duration, Modifying Factors, Severity) Note limiting factors. I wore appropriate PPE for the entirety of this encounter. HPI Feroz Kaiser is a 33 y.o. female who presents to the emergency department for evaluation of upper quadrant abdominal pain that started yesterday. Patient reports that she has a known history of recurrent pancreatitis and is following with Dr. Mcghee out of [facility]. States that the pain started yesterday. They believe that it may be due to gallstones although patient reports she had a cholecystectomy many years ago. States that she did have a recent stent placed to help with pancreatitis. States that Dr. Mcghee recommended she come to [facility] as we have further resources for GI. Reports that she is also having nausea, vomiting, diarrhea. Denies any fever or chills. Nursing Notes were reviewed. Limitations to history: None Outside historians: None REVIEW OF SYSTEMS Review of Systems 8 systems reviewed, positives and pertinent negatives as per HPI. All other systems were reviewed and are negative. PAST MEDICAL HISTORY History reviewed. No pertinent past medical history. SURGICAL HISTORY History reviewed. No pertinent surgical history. CURRENT MEDICATIONS Previous Medications No medications on file ALLERGIES Morphine and codeine FAMILY HISTORY No family history on file. SOCIAL HISTORY Social History Socioeconomic History Marital status: Single Tobacco Use Smoking status: Every Day Current packs/day: 0.50 Types: Cigarettes Smokeless tobacco: Never Substance and Sexual Activity Alcohol use: Not Currently Drug use: Not Currently SCREENINGS PHYSICAL EXAM ED Triage Vitals Temp Heart Rate Resp BP 03/04/24 1306 03/04/24 1306 03/04/24 1306 03/04/24 1306 36.6 ?C (97.8 ?F) (!) 114 22 (!) 137/92 SpO2 Temp Source Heart Rate Source Patient Position 03/04/24 1306 03/04/24 1306 03/04/24 1306 03/04/24 1307 99 % Temporal Monitor Sitting BP Location FiO2 (%) 03/04/24 1307 -- Left arm Physical Exam Vitals and nursing note reviewed. Constitutional: General: She is not in acute distress. Appearance: She is not toxic-appearing. Comments: 33-year-old female who appears to be in discomfort. HENT: Head: Normocephalic and atraumatic. Cardiovascular: Rate and Rhythm: Regular rhythm. Tachycardia present. Heart sounds: Normal heart sounds. Pulmonary: Effort: Pulmonary effort is normal. Abdominal: Comments: Abdomen soft and nonrigid. Tenderness to palpation of the posterior localization of the epigastric and RUQ region. Mild guarding noted throughout. No rebound tenderness noted. Skin: General: Skin is warm and dry. Capillary Refill: Capillary refill takes less than 2 seconds. Neurological: General: No focal deficit present. Mental Status: She is alert and oriented to person, place, and time. Psychiatric: Mood and Affect: Mood normal. DIAGNOSTIC RESULTS RADIOLOGY (Per Emergency Physician): Interpretation per the Radiologist below, if available at the time of this note: No orders to display LABS: Labs Reviewed CBC WITH AUTO DIFFERENTIAL - Abnormal Result Value Auto WBC 14.1 (*) RBC 4.73 Hemoglobin 14.0 Hematocrit 43.4 MCV 91.8 MCH 29.6 MCHC 32.3 RDW 13.2 Platelets 409 MPV 11.6 nRBC 0.0 Neutrophils Relative 68.5 Lymphocytes Relative 23.2 Monocytes Relative 4.5 (*) Eosinophils Relative 3.0 Basophils Relative 0.4 Immature Grans % 0.4 Neutrophils Absolute 9.7 (*) Lymphocytes Absolute 3.3 Monocytes Absolute 0.6 Eosinophils Absolute 0.4 Basophils Absolute 0.1 Immature Grans Absolute 0.1 (*) IPF 8 LIPASE - Abnormal LIPASE 1,192 (*) BASIC METABOLIC PANEL - Abnormal SODIUM 135 POTASSIUM 4.0 CHLORIDE 106 CARBON DIOXIDE 17 (*) UREA NITROGEN 12 CREATININE 0.76 GLUCOSE 101 (*) CALCIUM 9.8 ANION GAP 11 eGFR >90.0 HEPATIC FUNCTION PANEL - Abnormal BILIRUBIN, TOTAL 0.7 BILIRUBIN, DIRECT 0.0 ALKALINE PHOSPHATASE 188 (*) AST (SGOT) 30 ALT 24 ALBUMIN 4.3 TOTAL PROTEIN 8.3 (*) COMPLETE URINALYSIS - Abnormal Color, Urine Yellow Clarity, Urine Turbid (*) pH, Urine 5.5 Leukocytes, Urine 75 (*) Nitrite, Urine Negative Protein, Urine 30 (*) Glucose, Urine Normal Bilirubin, Urine Negative Ketones, Urine Trace (*) Urobilinogen, Urine 2 (*) Blood, Urine Negative RBC, Urine 0-2 WBC, Urine 11-25 (*) Squamous Epithelial, Urine 11-25 (*) Bacteria, Urine Moderate (*) Mucus, Urine Few Hyaline Casts, Urine 0-2 (*) WBC Casts, Urine 3-5 (*) SPECIFIC GRAVI (more content not included)... Normal [facility] ETHANOLon 03-04-2024 ETHANOL IN SER/PLAS <0.010 Normal 0.000-0.010 [facility] Comment on above: Result Comment: This sample may have been collected by using an alcohol pad to swab the skin. Ethanol-containing antiseptics before venipuncture may not be causes of spurious or false positive results of alcohol measurement at least when ideal venipunctures can be performed. However, under non-ideal collection conditions, alcohol contamination is a possibility. Results to be correlated clinically. ORDER COMMENTS: NOTE: This result is for medical treatment only. Analysis performed using non-forensic procedures. Performed By: #### L [id number], LAB15, LAB46, [id number], LAB20 ####Nanny Babysitter: YASMANY CHANG ([phone])[address] ETHYL GLUCURONIDE SCREEN, UR INEon 03-04-2024 ETHYL GLUCURONIDE, URINE Negative Normal Negative [facility] Comment on above: Result Comment: MATIAS Kendrick COMMENTS: Ethyl Glucuronide has been screened by Immunoassay at a 500 ng/mL threshold. POSITIVE results are not confirmed by a more specific alternative method unless requested. If confirmation is needed, request confirmation under separate order. NOTE: These results are for medical treatment only. Analysis performed using non-forensic procedures. This test has not been cleared by the US Food and Drug Administration (FDA). The FDA has determined that such clearance or approval is not necessary. The performance characteristics have been determined by the clinical laboratories of [facility]. Performed By: #### L [id number], [id number] ####Nanny Babysitter: YASMANY CHANG ([phone])[facility] ([facility])[address] [place] [address] Ethanol (Bld) [Mass/Vol]on 0 03-04-2024 Ethanol [Mass/Vol] g/dL 0.000 - 0.010 g/dL [facility] Comment on above: This sample may have been collected by using an alcohol pad to swab the skin. Ethanol-containing antiseptics before venipuncture may not be causes of spurious or false positive results of alcohol measurement at least when ideal venipunctures can be performed. However, under non-ideal collection conditions, alcohol contamination is a possibility. Results to be correlated clinically. Interpretation and review of laboratory results Normal [facility] HCG QUANTITATIVE BLOODon HCG QUANTITATIVE <2 Normal Females <=5 [facility] Comment on above: Result Comment: MATIAS Kendrick COMMENTS: Values in should double every 2 to 3 days for the first 6 weeks. Elevated concentrations of human chorionic gonadotropin (hCG) measured in the first trimester of are observed in normal , but may serve as an indication of chorionic carcinoma, hydatiform mole, or multiple . Decreasing hCG concentrations indicate threatened or missed , recent termination of , ectopic , gestosis or intrauterine . Kcay- and postmenopausal females may have detectable hCG concentrations (< or = to 14 mIU/mL) due to pituitary production of hCG. Serum follicle-stimulating hormone measurement may aid in ruling-out in this population. Cutoffs of greater than 20 to 45 mIU/mL have been suggested and are method dependent. False-elevations (called phantom human chorionic gonadotropin: hCG) may occur with patients who have human antianimal or heterophilic antibodies. Some specimens may not dilute linearly due to abnormal forms of hCG. Elevated hCG concentrations not associated with are found in patients with other diseases such as tumors of the germ cells, ovaries, bladder, pancreas, stomach, lungs, and liver. This test is not intended to detect or monitor tumors or gestational trophoblastic disease. Performed By: #### L AB99, LAB15, LAB46, [id number], LAB20 ####Nanny Babysitter: YASMANY CHANG ([phone])[facility] ([facility])[address] [place] [address] HEPATIC FUNCTION PANELon Albumin [Mass/Vol] 4.3 g/dL Normal 3.5-5.0 [facility] Comment on above: Performed By: #### L [id number], LAB15, LAB46, [id number], LAB20 ####Nanny Babysitter: YASMANY CHANG ([phone])[facility] ([facility])[address] [place] [address] ALP [Catalytic activity/Vol] 188 U/L High 38-126 [facility] Comment on above: Performed By: #### L AB99, LAB15, LAB46, [id number], LAB20 ####Nanny Babysitter: YASMANY CHANG ([phone])[facility])[address] [place] [address] ALT [Catalytic activity/Vol] 24 U/L Normal 0-34 [facility] Comment on above: Performed By: #### L AB99, LAB15, LAB46, [id number], LAB20 ####Nanny Babysitter: YASMANY CHANG ([phone])[facility] ([facility])[address] [place] [address] [place] AST [Catalytic activity/Vol] 30 U/L Normal 15-46 [facility] Comment on above: Performed By: #### L AB99, LAB15, LAB46, [id number], LAB20 ####Nanny Babysitter: YASMANY CHANG ([phone])[facility] ([facility])[address] [place] [address] Bilirubin [Mass/Vol] 0.7 mg/dL Normal 0.2-1.3 [facility] Comment on above: Performed By: #### L AB99, LAB15, LAB46, [id number], LAB20 ####Nanny Babysitter: YASMANY CHANG ([phone])[facility])[address] [place] [address] [place] Bilirubin.indirect [Mass/Vol] 0.0 mg/dL Normal 0.0-0.3 [facility] Comment on above: Performed By: #### L AB99, LAB15, LAB46, [id number], LAB20 ####Nanny Babysitter: YASMANY CHANG ([phone])[facility] ([facility] [place] [address] Protein [Mass/Vol] 8.3 g/dL High 6.3-8.2 [facility] Comment on above: Performed By: #### L AB99, LAB15, LAB46, [id number], LAB20 ####Nanny Babysitter: YASMANY CHANG ([phone])[facility] ([facility])[address] [place] [address] Hepatic function 2000 panelo n 03-04-2024 Albumin [Mass/Vol] 4.3 g/dL 3.5 - 5.0 g/dL [facility] ALP [Catalytic activity/Vol] 188 U/L High 38 - 126 U/L [facility] ALT [Catalytic activity/Vol] 24 U/L 0 - 34 U/L [facility] AST [Catalytic activity/Vol] 30 U/L 15 - 46 U/L [facility] Bilirubin [Mass/Vol] 0.7 mg/dL 0.2 - 1 .3 mg/dL [facility] Bilirubin.conjugated [Mass/Vol] 0.0 mg/dL 0.0 - 0.3 mg/dL [facility] Protein [Mass/Vol] 8.3 g/dL High 6.3 - 8.2 g/dL [facility] LACTIC ACID WITH REFLEXon Lactate [Moles/Vol] 0.9 mmol/L Normal 0.7-2.0 [facility] Comment on above: Performed By: #### L [id number] ####Nanny Babysitter: YASMANY CHANG ([phone])[facility] ([facility])[address] [place] [address] LIPASEon 03-04-2024 Lipase [Catalytic activity/Vol] 1192 U/L High 23-300 [facility] Comment on above: Performed By: #### L AB99, LAB15, LAB46, [id number], LAB20 ####Nanny Babysitter: YASMANY CHANG ([phone])[facility] ([facility])[address] [place] [address] Laboratory - Chemistry and C hemistry - challengeon 03-04-2024 Lactate [Moles/Vol] 0.9 mmol/L 0.7 - 2. 0 mmol/L [facility] HCG.beta subunit Qn Females <=5 mIU/mL [facility] Lipase [Catalytic activity/Vol] 1192 U/L High 23 - 300 U/L [facility] Laboratory - Drug toxicology on 03-04-2024 Amphetamines Ql (U) Negative Negative [facility] Barbiturates screen method Nom (U) Negative Negative [facility] Benzodiazepines screen method Nom (U) Negative Negative [facility] Cocaine Ql (U) Negative Negative [facility] Ethanol [Mass/Vol] Negative Negative [facility] Methadone Ql (U) Negative Negative [facility] alth Opiates Screen Ql (U) Positive Negative [facility] MEDICATION ASSISTED TREATMEN T PANELon 03-04-2024 Amphetamines Ql (U) Negative Normal Negative [facility] Comment on above: Performed By: #### L [id number], [id number] ####Nanny Babysitter: YASMANY CHANG ([phone])[facility])[address] [place] [address] BARBITURATES Negative Normal Negative [facility] Comment on above: Performed By: #### L [id number], [id number] ####Nanny Babysitter: YASMANY CHANG ([phone])[facility])[address] [place] [address] Benzodiazepines Ql (U) Negative Normal Negative [facility] Comment on above: Performed By: #### L [id number], [id number] ####Nanny Babysitter: YASMANY CHANG ([phone])[facility])[address] [place] [address] BUPRENORPHINE SCREEN Negative Normal Negative [facility] Comment on above: Performed By: #### L [id number], [id number] ####Nanny Babysitter: YASMANY [phone])[facility])[address] [place] [address] Cocaine Ql (U) Negative Normal Negative [facility] Comment on above: Performed By: #### L [id number], [id number] ####Nanny Babysitter: YASMANY [phone])[facility] ([facility])[address] [place] [address] ETHANOL-ETOHO Negative Normal Negative [facility] Comment on above: Result Comment: MATIAS R COMMENTS: The expected value for the drugs listed above is Negative. The following drugs or drug groups have been screened for by Immunoassay at the following thresholds: Amphetamine class(1000ng/mL) Barbituates(200ng/mL) Benzodiazepines(200ng/mL) Cocaine(300ng/mL) Ethanol (50 ng/mL) Methadone(300ng/mL) Opiates(300ng/mL) Oxycodone(100ng/mL) PCP(25ng/mL) Buprenorphine(5ng/mL) THC(50ng/mL) Fentanyl(1ng/mL) Positive results are NOT confirmed by a more specific alternative method unless requested. If confirmation is needed, request confirmation under separate order. NOTE: These results are for medical treatment only. Analysis performed using non-forensic procedures. Performed By: #### Radha [id number], [id number] ####Nanny Babysitter: YASMANY CHANG ([phone])[facility] ([facility])[address] [place] [address] FENTANYL Negative Normal Negative [facility] Comment on above: Performed By: #### Radha [id number], [id number] ####Nanny Babysitter: YASMANY CHANG ([phone])[facility])[address] [place] [address] Methadone Ql (U) Negative Normal Negative [facility] Comment on above: Performed By: #### Radha [id number], [id number] ####Nanny Babysitter: YASMANY CHANG ([phone])[facility] ([facility])[address] [place] [address] [place] Opiates Ql (U) Positive Normal Negative [facility] Comment on above: Performed By: #### L [id number], [id number] ####Nanny Babysitter: YASMANY CHANG ([phone])[facility] ([facility])[address] [place] [address] [place] OXYCODONE/OXYMORPHONE Positive Normal Negative [facility] Comment on above: Performed By: #### L [id number], [id number] ####Nanny Babysitter: YASMANY CHANG ([phone])[facility] ([facility])[address] [place] [address] PCP Negative Normal Negative [facility] Comment on above: Performed By: #### L [id number], [id number] ####Nanny Babysitter: YASMANY CHANG ([phone])[facility] ([facility])[address] [place] [address] THC-MTTHC Positive Normal Negative [facility] Comment on above: Performed By: #### L [id number], [id number] ####Nanny Babysitter: YASMANY CHANG ([phone])[facility] ([facility])[address] [place] [address] No Panel Informationon 03-04 BUPRENORPHINE SCREEN Negative Negative [facility] FENTANYL Negative Negative [facility] OXYCODONE/OXYMORPHONE Positive Negative [facility] PCP Negative Negative [facility] THC Positive Negative [facility] The expected value for the drugs listed above is Negative. The following drugs or drug groups have been screened for by Immunoassay at the following thresholds: Amphetamine class(1000ng/mL) Barbituates(200ng/mL ) Benzodiazepines(200n g/mL) Cocaine(300ng/mL) Ethanol (50 ng/mL) Methadone(300ng/mL) Opiates(300ng/mL) Oxycodone(100ng/mL) PCP(25ng/mL) Buprenorphine(5ng/mL ) THC(50ng/mL) Fentanyl(1ng/mL) Positive results are NOT confirmed by a more specific alternative method unless requested. If confirmation is needed, request confirmation under separate order. NOTE: These results are for medical treatment only. Analysis performed using non-forensic procedures. [facility] Interpretation and review of laboratory results Normal [facility] Values in should double every 2 to 3 days for the first 6 weeks. Elevated concentrations of human chorionic gonadotropin (hCG) measured in the first trimester of are observed in normal , but may serve as an indication of chorionic carcinoma, hydatiform mole, or multiple . Decreasing hCG concentrations indicate threatened or missed , recent termination of , ectopic , gestosis or intrauterine . Kacy- and postmenopausal females may have detectable hCG concentrations (< or = to 14 mIU/mL) due to pituitary production of hCG. Serum follicle-stimulating hormone measurement may aid in ruling-out in this population. Cutoffs of greater than 20 to 45 mIU/mL have been suggested and are method dependent. False-elevations (called phantom human chorionic gonadotropin: hCG) may occur with patients who have human antianimal or heterophilic antibodies. Some specimens may not dilute linearly due to abnormal forms of hCG. Elevated hCG concentrations not associated with are found in patients with other diseases such as tumors of the germ cells, ovaries, bladder, pancreas, stomach, lungs, and liver. This test is not intended to detect or monitor tumors or gestational trophoblastic disease. [facility] Interpretation and review of laboratory results Abnormal [facility] No Panel InformationOrdered By: Karla Reyes on 03-04-2024 ETHYL GLUCURONIDE, URINE Negative Negative [facility] Ethyl Glucuronide has been screened by Immunoassay at a 500 ng/mL threshold. POSITIVE results are not confirmed by a more specific alternative method unless requested. If confirmation is needed, request confirmation under separate order. NOTE: These results are for medical treatment only. Analysis performed using non-forensic procedures. This test has not been cleared by the US Food and Drug Administration (FDA). The FDA has determined that such clearance or approval is not necessary. The performance characteristics have been determined by the clinical laboratories of [facility]. [facility] URINE CULTUREon 03-04-2024 Bacteria identified Cx Nom (U) URINE CULTURE Reference No growth (<1,000 CFU/mL) [ S = SUSCEPTIBLE R = RESISTANT I = INTERMEDIATE S-DD = Susceptible-dose dependent NS = Non-susceptible NO = No Interpretation ] Normal [facility] Comment on above: Performed By: #### L [id number] #### Nanny Babysitter: YASMANY CHANG ([phone]) [facility] ([facility]) [address] [place] [address] Urinalysis complete panel (U )Ordered By: Charles Pandey on 03-04-2024 Bacteria LM.HPF (Urine sed) [#/Area] Moderate Abnormal Negative /HPF [facility] Bilirubin Ql (U) Negative Negative mg/dL [facility] Clarity (U) Turbid Abnormal Clear [facility] Color (U) Yellow Lt. Yellow [facility] Epithelial cells.squamous LM.HPF (Urine sed) [#/Area] 11-25 Abnormal [facility] h Glucose Ql (U) Normal Normal (<70) mg/dL [facility] Hemoglobin Ql (U) Negative Negative mg/dL [facility] Hyaline casts Auto (Urine sed) [#/Area] 0-2 Abnormal Negative /LPF [facility] Interpretation and review of laboratory results Abnormal [facility] Ketones (U) [Mass/Vol] Trace Abnormal Negat murali mg/dL [facility] Leukocyte esterase Test strip Ql (U) 75 Abnormal Negative Kevin/uL [facility] Mucus LM.HPF (Urine sed) [#/Area] Few Negative /LPF [facility] Nitrite Ql (U) Negative Negative [facility] th pH (U) 5.5 [pH] 5.0 - 8.0 pH [facility] Protein (U) [Mass/Vol] 30 mg/dL Abnormal Negative [facility] RBC LM.HPF (Urine sed) [#/Area] 0-2 [facility] Specific gravity (U) [Rel density] 1.027 1.005 - 1.030 [facility] Urobilinogen (U) [Mass/Vol] 2 mg/dL Abnormal Normal (0-1) [facility] WBC casts LM.HPF (Urine sed) [#/Area] 3-5 Abnormal Negative /LPF [facility] WBC LM.HPF (Urine sed) [#/Area] 11-25 Abnormal [facility] .Auto Diffon 03-03-2024 Basophil, Absolute 0.1 10 3/mcL Normal 0.0-0.2 [facility] ([place]) Comment on above: Performed By: #### L IP, GFR, ANEU, ESR, YASMANY, ADIFF, CRP, CBC, CMP #### [address] [address] Basophils/100 WBC (Bld) 0.8 % Normal 0.0-2.5 A [facility] ([place]) Comment on above: Performed By: #### L IP, GFR, ANEU, ESR, YASMANY, ADIFF, CRP, CBC, CMP #### [address] [address] Eosinophil, Absolute 0.4 10 3/mcL Normal 0.0-0.4 [facility] ([place]) Comment on above: Performed By: #### L IP, GFR, ANEU, ESR, YASMANY, ADIFF, CRP, CBC, CMP #### [address] [address] Eosinophils/100 WBC (Bld) 3.3 % Normal 0.0-7.0 [facility] ([place] Comment on above: Performed By: #### L IP, GFR, ANEU, ESR, YASMANY, ADIFF, CRP, CBC, CMP #### [address] [address] Lymphocyte, Absolute 3.1 10 3/mcL Normal 0.8-3.9 [facility] ([place]) Comment on above: Performed By: #### L IP, GFR, ANEU, ESR, YASMANY, ADIFF, CRP, CBC, CMP #### [address] [address] Lymphocytes/100 WBC (Bld) 22.3 % Normal 10.0-50.0 [facility] ([place]) Comment on above: Performed By: #### L IP, GFR, ANEU, ESR, YASMANY, ADIFF, CRP, CBC, CMP #### [address] [address] Monocyte, Absolute 0.7 10 3/mcL Normal 0.2-1.0 [facility] ([place]) Comment on above: Performed By: #### L IP, GFR, ANEU, ESR, YASMANY, ADIFF, CRP, CBC, CMP #### [address] [address] Monocytes/100 WBC (Bld) 4.9 % Normal 1.7-13.0 [facility] ([place]) Comment on above: Performed By: #### L IP, GFR, ANEU, ESR, YASMANY, ADIFF, CRP, CBC, CMP #### [address] [address] Neutrophils/100 WBC (Bld) 68.7 % Normal 37.0-80.0 [facility] ([place]) Comment on above: Performed By: #### L IP, GFR, ANEU, ESR, YASMANY, ADIFF, CRP, CBC, CMP #### [address] [address] .GFRon 03-03-2024 GFR 110 ml/min/1.73sqm Normal [facility] ([place]) Comment on above: Result Comment: GFR Population mean for , Non- Americans Ages 20-29 = 116 mL/min/1.73 sq.m. Ages 30-39 = 107 mL/min/1.73 sq.m. Ages 40-49 = 99 mL/min/1.73 sq.m. Ages 50-59 = 93 mL/min/1.73 sq.m. Ages 60-69 = 85 mL/min/1.73 sq.m. Ages 70+ = 75 mL/min/1.73 sq.m. Chronic Kidney Disease: Less than 60 mL/min/1.73 square meters End Stage Renal Disease: Less than 15 mL/min/1.73 square meters Performed By: #### L IP, GFR, ANEU, ESR, YASMANY, ADIFF, CRP, CBC, CMP #### [address] [address] GFR Non- 91 ml/min/1.73sqm Normal [facility] ([place]) Comment on above: Result Comment: GFR Population mean for , Non- Americans Ages 20-29 = 116 mL/min/1.73 sq.m. Ages 30-39 = 107 mL/min/1.73 sq.m. Ages 40-49 = 99 mL/min/1.73 sq.m. Ages 50-59 = 93 mL/min/1.73 sq.m. Ages 60-69 = 85 mL/min/1.73 sq.m. Ages 70+ = 75 mL/min/1.73 sq.m. Chronic Kidney Disease: Less than 60 mL/min/1.73 square meters End Stage Renal Disease: Less than 15 mL/min/1.73 square meters Performed By: #### L IP, GFR, ANEU, ESR, YASMANY, ADIFF, CRP, CBC, CMP #### [address] [address] .NEUABSon 03-03-2024 Neutrophil, Absolute 9.5 10 3/mcL High 2.9-6.2 [facility] ([place]) Comment on above: Performed By: #### L IP, GFR, ANEU, ESR, YASMANY, ADIFF, CRP, CBC, CMP #### [address] [address] AMYon 03-03-2024 Amylase [Catalytic activity/Vol] 200 U/L High 25-115 [facility] ([place]) Comment on above: Performed By: #### L IP, GFR, ANEU, ESR, YASMANY, ADIFF, CRP, CBC, CMP #### [place] [address] CBCon 03-03-2024 Erythrocyte distribution width (RBC) [Ratio] 14.2 % Normal 11.5-14.5 [facility] ([place]) Comment on above: Performed By: #### L IP, GFR, ANEU, ESR, YASMANY, ADIFF, CRP, CBC, CMP #### [place] [address] Hematocrit (Bld) [Volume fraction] 42.2 % Normal 37.0-47.0 [facility] ([place] Comment on above: Performed By: #### L IP, GFR, ANEU, ESR, YASMANY, ADIFF, CRP, CBC, CMP #### [place] [address] Hgb 13.8 G/dL Normal 12.0-16.0 [facility] ([place]) Comment on above: Performed By: #### L IP, GFR, ANEU, ESR, YASMANY, ADIFF, CRP, CBC, CMP #### [place] [address] MCH (RBC) [Entitic mass] 30.2 pg Normal 27.0-31.2 [facility]) Comment on above: Performed By: #### L IP, GFR, ANEU, ESR, YASMANY, ADIFF, CRP, CBC, CMP #### [place] [address] MCHC 32.6 G/dL Low 33.0-37.0 [facility] ([place] Comment on above: Performed By: #### L IP, GFR, ANEU, ESR, YASMANY, ADIFF, CRP, CBC, CMP #### [address] [address] MCV (RBC) [Entitic vol] 92.7 fL Normal 80.0-94.0 A [facility] ([place] Comment on above: Performed By: #### L IP, GFR, ANEU, ESR, YASMANY, ADIFF, CRP, CBC, CMP #### [address] [address] Platelet 349 10 3/mcL Normal 130-400 [facility] ([place]) Comment on above: Performed By: #### L IP, GFR, ANEU, ESR, YASMANY, ADIFF, CRP, CBC, CMP #### [address] [address] Platelet mean volume (Bld) [Entitic vol] 10.8 fL High 7.4-10.4 [facility] ([place]) Comment on above: Performed By: #### L IP, GFR, ANEU, ESR, YASMANY, ADIFF, CRP, CBC, CMP #### [address] [address] RBC 4.55 10 6/mcL Normal 4.20-5.40 [facility] ([place]) Comment on above: Performed By: #### L IP, GFR, ANEU, ESR, YASMANY, ADIFF, CRP, CBC, CMP #### [address] [address] WBC 13.8 10 3/mcL High 4.6-10.8 [facility] ([place]) Comment on above: Performed By: #### L IP, GFR, ANEU, ESR, YASMANY, ADIFF, CRP, CBC, CMP #### [address] [address] CMPon 03-03-2024 Albumin Level 3.4 G/dL Low 3.5-5.0 [facility] ([place]) Comment on above: Performed By: #### L IP, GFR, ANEU, ESR, YASMANY, ADIFF, CRP, CBC, CMP #### [address] [address] Albumin/Globulin [Mass ratio] 0.7 {ratio} Low 1.1-2.5 [facility] ([place] Comment on above: Performed By: #### L IP, GFR, ANEU, ESR, YASMANY, ADIFF, CRP, CBC, CMP #### [address] [address] ALP [Catalytic activity/Vol] 193 U/L High 40-135 [facility] ([place] Comment on above: Performed By: #### L IP, GFR, ANEU, ESR, YASMANY, ADIFF, CRP, CBC, CMP #### [address] [address] ALT [Catalytic activity/Vol] 28 U/L Normal 14-59 [facility]) Comment on above: Performed By: #### L IP, GFR, ANEU, ESR, YASMANY, ADIFF, CRP, CBC, CMP #### [address] [address] AST [Catalytic activity/Vol] 28 U/L Normal 10-40 [facility] ([place] Comment on above: Performed By: #### L IP, GFR, ANEU, ESR, YASMANY, ADIFF, CRP, CBC, CMP #### [address] [address] Bili Total 0.6 mg/dL Normal 0.2-1.0 [facility] ([place]) Comment on above: Result Comment: Use of this assay is not recommended for patients undergoing treatment with eltrombopag due to the potential for falsely elevated results. Performed By: #### L IP, GFR, ANEU, ESR, YASMANY, ADIFF, CRP, CBC, CMP #### [place] [address] BUN/Creatinine Ratio 12 ratio Normal 7-27 [facility] ([place]) Comment on above: Performed By: #### L IP, GFR, ANEU, ESR, YASMANY, ADIFF, CRP, CBC, CMP #### [address] [address] Calcium [Mass/Vol] 9.6 mg/dL Normal 8.4-10.2 [facility] ([place]) Comment on above: Performed By: #### L IP, GFR, ANEU, ESR, YASMANY, ADIFF, CRP, CBC, CMP #### [place] [address] Chloride [Moles/Vol] 102 mmol/L Normal 98-107 [facility] ([place]) Comment on above: Performed By: #### L IP, GFR, ANEU, ESR, YASMANY, ADIFF, CRP, CBC, CMP #### [place] [address] CO2 [Moles/Vol] 20 mmol/L Low 22-29 [facility] ([place]) Comment on above: Performed By: #### L IP, GFR, ANEU, ESR, YASMANY, ADIFF, CRP, CBC, CMP #### [place] [address] Creatinine [Mass/Vol] 0.74 mg/dL Normal 0.55-1.02 [facility] ([place]) Comment on above: Performed By: #### L IP, GFR, ANEU, ESR, YASMANY, ADIFF, CRP, CBC, CMP #### [address] [address] Electrolyte Balance 15.0 mEq/L Normal 4.0-15.0 [facility] ([place] Comment on above: Performed By: #### L IP, GFR, ANEU, ESR, YASMANY, ADIFF, CRP, CBC, CMP #### [address] [address] Globulin 4.6 G/dL Normal [facility] ([place]) Comment on above: Performed By: #### L IP, GFR, ANEU, ESR, YASMANY, ADIFF, CRP, CBC, CMP #### [address] [address] Glucose [Mass/Vol] 90 mg/dL Normal 70-105 [facility] ([place]) Comment on above: Performed By: #### L IP, GFR, ANEU, ESR, YASMANY, ADIFF, CRP, CBC, CMP #### [address] [address] Potassium [Moles/Vol] 4.4 mmol/L Normal 3.5-5.1 [facility] ([place]) Comment on above: Performed By: #### L IP, GFR, ANEU, ESR, YASMANY, ADIFF, CRP, CBC, CMP #### [address] [address] Sodium [Moles/Vol] 137 mmol/L Normal 136-145 [facility] ([place]) Comment on above: Performed By: #### L IP, GFR, ANEU, ESR, YASMANY, ADIFF, CRP, CBC, CMP #### [address] [address] Total Protein 8.0 G/dL Normal 6.4-8.2 [facility] ([place]) Comment on above: Performed By: #### L IP, GFR, ANEU, ESR, YASMANY, ADIFF, CRP, CBC, CMP #### [address] [address] Urea nitrogen [Mass/Vol] 9 mg/dL Normal 7-18 [facility] ([place]) Comment on above: Performed By: #### L IP, GFR, ANEU, ESR, YASMANY, ADIFF, CRP, CBC, CMP #### [address] [address] CRPon 03-03-2024 C-Reactive Protein 0.8 mg/dL High 0.0-0.3 [facility] ([place]) Comment on above: Performed By: #### L IP, GFR, ANEU, ESR, YASMANY, ADIFF, CRP, CBC, CMP #### [address] [address] ESRon 03-03-2024 Erythrocyte Sed Rate 54 mm/hr High 0-20 [facility] ([place]) Comment on above: Performed By: #### L IP, GFR, ANEU, ESR, YASMANY, ADIFF, CRP, CBC, CMP #### [facility] [address] [place], [place] [address] LABORATORYOrdered By: SYSTEM SYSTEM on 03-03-2024 Albumin BCP dye [Mass/Vol] 3.4 G/dL Low 3.5 - 5.0 G/dL AO ADM SS Albumin/Globulin [Mass ratio] 0.7 {ratio} Low 1.1 - 2.5 ratio AO ADM SS ALP [Catalytic activity/Vol] 193 U/L High 40 - 135 U/L AO ADM SS ALT With P-5'-P [Catalytic activity/Vol] 28 U/L Normal 14 - 59 U/L AO ADM SS Amylase [Catalytic activity/Vol] 200 U/L High 25 - 115 U/L AO ADM SS AST With P-5'-P [Catalytic activity/Vol] 28 U/L Normal 10 - 40 U/L AO ADM SS Basophil, Absolute 0.1 103/mcL Normal 0.0 - 0.2 10^3/mcL AO Workflow SS Basophils/100 WBC (Bld) 0.8 % Normal 0.0 - 2.5 % AO Workflow SS Bilirubin [Mass/Vol] 0.6 mg/dL Normal 0.2 - 1 .0 mg/dL AO ADM SS Comment on above: Interpretive Data: U se of this assay is not recommended for patients undergoing treatment with eltrombopag due to the potential for falsely elevated results. Calcium [Mass/Vol] 9.6 mg/dL Normal 8.4 - 10. 2 mg/dL AO ADM SS Chloride [Moles/Vol] 102 mmol/L Normal 98 - 10 7 mmol/L AO ADM SS CO2 [Moles/Vol] 20 mmol/L Low 22 - 29 mmol/L AO ADM SS Creatinine [Mass/Vol] 0.74 mg/dL Normal 0.55 - 1.02 mg/dL AO ADM SS CRP [Mass/Vol] 0.8 mg/dL High 0.0 - 0.3 mg/dL AO ADM SS Electrolyte Balance 15.0 mEq/L Normal 4.0 - 15 .0 mEq/L AO ADM SS Eosinophil, Absolute 0.4 103/mcL Normal 0.0 - 0 .4 10^3/mcL AO Workflow SS Eosinophils/100 WBC (Bld) 3.3 % Normal 0.0 - 7.0 % AO Workflow SS Erythrocyte distribution width (RBC) [Ratio] 14.2 % Normal 11.5 - 14.5 % AO Workflow SS GFR/1.73 sq M.predicted among blacks MDRD (S/P/Bld) [Vol rate/Area] 110 ml/min/1.73sqm Invalid Interpretation Code AO Chemistry S Comment on above: Interpretive Data: GFR Population mean for , Non- Americans Ages 20-29 = 116 mL/min/1.73 sq.m. Ages 30-39 = 107 mL/min/1.73 sq.m. Ages 40-49 = 99 mL/min/1.73 sq.m. Ages 50-59 = 93 mL/min/1.73 sq.m. Ages 60-69 = 85 mL/min/1.73 sq.m. Ages 70+ = 75 mL/min/1.73 sq.m. Chronic Kidney Disease: Less than 60 mL/min/1.73 square meters End Stage Renal Disease: Less than 15 mL/min/1.73 square meters GFR/1.73 sq M.predicted among non-blacks MDRD (S/P/Bld) [Vol rate/Area] 91 ml/min/1.73sqm Invalid Interpretation Code AO Chemistry S Comment on above: Interpretive Data: GFR Population mean for , Non- Americans Ages 20-29 = 116 mL/min/1.73 sq.m. Ages 30-39 = 107 mL/min/1.73 sq.m. Ages 40-49 = 99 mL/min/1.73 sq.m. Ages 50-59 = 93 mL/min/1.73 sq.m. Ages 60-69 = 85 mL/min/1.73 sq.m. Ages 70+ = 75 mL/min/1.73 sq.m. Chronic Kidney Disease: Less than 60 mL/min/1.73 square meters End Stage Renal Disease: Less than 15 mL/min/1.73 square meters Globulin 4.6 G/dL Invalid Interpretation Code AO ADM SS Glucose [Mass/Vol] 90 mg/dL Normal 70 - 105 mg/dL AO ADM SS Hematocrit (Bld) [Volume fraction] 42.2 % Normal 37.0 - 47.0 % AO Workflow SS Hemoglobin (Bld) [Mass/Vol] 13.8 G/dL Normal 12.0 - 16.0 G/dL AO Workflow SS Lipase [Catalytic activity/Vol] U/L 1 High 16 - 77 U/L AO ADM SS Lymphocyte, Absolute 3.1 103/mcL Normal 0.8 - 3 .9 10^3/mcL AO Workflow SS Lymphocytes/100 WBC (Bld) 22.3 % Normal 10.0 - 50.0 % AO Workflow SS MCH (RBC) [Entitic mass] 30.2 pg Normal 27. 0 - 31.2 pg AO Workflow SS MCHC 32.6 G/dL Low 33.0 - 37.0 G/dL AO Workflow SS MCV (RBC) [Entitic vol] 92.7 fL Normal 80.0 - 94.0 fL AO Workflow SS Monocyte, Absolute 0.7 103/mcL Normal 0.2 - 1.0 10^3/mcL AO Workflow SS Monocytes/100 WBC (Bld) 4.9 % Normal 1.7 - 13.0 % AO Workflow SS Neutrophil, Absolute 9.5 103/mcL High 2.9 - 6 .2 10^3/mcL AO Workflow SS Neutrophils/100 WBC (Bld) 68.7 % Normal 37.0 - 80.0 % AO Workflow SS Platelet mean volume (Bld) [Entitic vol] 10.8 fL High 7.4 - 10.4 fL AO Workflow SS Platelets (Bld) [#/Vol] 349 103/mcL Normal 130 - 400 10^3/mcL AO Workflow SS Potassium [Moles/Vol] 4.4 mmol/L Normal 3.5 - 5.1 mmol/L AO ADM SS Protein [Mass/Vol] 8.0 G/dL Normal 6.4 - 8.2 G/dL AO ADM SS RBC (Bld) [#/Vol] 4.55 106/mcL Normal 4.20 - 5.4 0 10^6/mcL AO Workflow SS Sodium [Moles/Vol] 137 mmol/L Normal 136 - 145 mmol/L AO ADM SS Urea nitrogen [Mass/Vol] 9 mg/dL Normal 7 - 18 mg/dL AO ADM SS Urea nitrogen/Creatinine [Mass ratio] 12 ratio Normal 7 - 27 ratio AO ADM SS WBC (Bld) [#/Vol] 13.8 103/mcL High 4.6 - 10.8 10^3/mcL AO Workflow SS LABORATORYOrdered By: Phuong Nolan on 03-03-2024 ESR Photometric method (Bld) [Velocity] 54 mm/hr High 0 - 20 mm/hr AO Man Heme SS LIPon 03-03-2024 Lipase Level >375 High 16- [facility] ([place]) Comment on above: Performed By: #### L IP, GFR, ANEU, ESR, YASMANY, ADIFF, CRP, CBC, CMP #### [address] [address] .GFRon 02-07-2024 GFR 146 ml/min/1.73sqm Normal [facility] ([place]) Comment on above: Result Comment: GFR Population mean for , Non- Americans Ages 20-29 = 116 mL/min/1.73 sq.m. Ages 30-39 = 107 mL/min/1.73 sq.m. Ages 40-49 = 99 mL/min/1.73 sq.m. Ages 50-59 = 93 mL/min/1.73 sq.m. Ages 60-69 = 85 mL/min/1.73 sq.m. Ages 70+ = 75 mL/min/1.73 sq.m. Chronic Kidney Disease: Less than 60 mL/min/1.73 square meters End Stage Renal Disease: Less than 15 mL/min/1.73 square meters Performed By: #### L IP, GFR, ANEU, ESR, YASMANY, ADIFF, CRP, CBC, CMP #### [address] [address] GFR Non- 120 ml/min/1.73sqm [facility] ([place]) Comment on above: Result Comment: GFR Population mean for , Non- Americans Ages 20-29 = 116 mL/min/1.73 sq.m. Ages 30-39 = 107 mL/min/1.73 sq.m. Ages 40-49 = 99 mL/min/1.73 sq.m. Ages 50-59 = 93 mL/min/1.73 sq.m. Ages 60-69 = 85 mL/min/1.73 sq.m. Ages 70+ = 75 mL/min/1.73 sq.m. Chronic Kidney Disease: Less than 60 mL/min/1.73 square meters End Stage Renal Disease: Less than 15 mL/min/1.73 square meters Performed By: #### L IP, GFR, ANEU, ESR, YASMANY, ADIFF, CRP, CBC, CMP #### [address] [address] BMPon 02-07-2024 BUN/Creatinine Ratio 16 ratio Normal 7-27 [facility] ([place]) Comment on above: Performed By: #### G FR, LIP, BMP, MG #### [place] [id number] Calcium [Mass/Vol] 10.3 mg/dL High 8.4-10.2 [facility] ([place]) Comment on above: Performed By: #### G FR, LIP, BMP, MG #### [place] [id number] Chloride [Moles/Vol] 99 mmol/L Normal 98-107 [facility] ([place]) Comment on above: Performed By: #### G FR, LIP, BMP, MG #### [place] [phone] CO2 [Moles/Vol] 24 mmol/L Normal 22-29 [facility] ([place]) Comment on above: Performed By: #### G FR, LIP, BMP, MG #### [place] [phone] Creatinine [Mass/Vol] 0.58 mg/dL Normal 0.55-1.02 [facility] ([place]) Comment on above: Performed By: #### G FR, LIP, BMP, MG #### [address] [address] Electrolyte Balance 12.0 mEq/L Normal 4.0-15.0 [facility] ([place]) Comment on above: Performed By: #### G FR, LIP, BMP, MG #### [place] [phone] Glucose [Mass/Vol] 119 mg/dL High 70-105 [facility] ([place]) Comment on above: Performed By: #### G FR, LIP, BMP, MG #### [facility] [place] [address] [place], [place] [address] Potassium [Moles/Vol] 4.8 mmol/L Normal 3.5-5.1 [facility] ([place] Comment on above: Performed By: #### G FR, LIP, BMP, MG #### [address] [address] Sodium [Moles/Vol] 135 mmol/L Low 136-145 [facility] ([place]) Comment on above: Performed By: #### G FR, LIP, BMP, MG #### [address] [address] Urea nitrogen [Mass/Vol] 9 mg/dL Normal 7-18 [facility] ([place] Comment on above: Performed By: #### G FR, LIP, BMP, MG #### [address] [address] LIPon 02-07-2024 Lipase Level 80 U/L High 16-77 [facility] ([place]) Comment on above: Performed By: #### L IP, GFR, ANEU, ESR, YASMANY, ADIFF, CRP, CBC, CMP #### [address] [address] MGon 02-07-2024 Magnesium [Mass/Vol] 1.7 mg/dL Low 1.8-2.4 [facility] ([place]) Comment on above: Performed By: #### L IP, GFR, ANEU, ESR, YASMANY, ADIFF, CRP, CBC, CMP #### [address] [address] .Auto Diffon 12-08-2023 Basophil, Absolute 0.1 10 3/mcL Normal 0.0-0.2 [facility] ([place]) Comment on above: Performed By: #### L IP, GFR, ANEU, ESR, YASMANY, ADIFF, CRP, CBC, CMP #### [address] [address] Basophils/100 WBC (Bld) 1.0 % Normal 0.0-2.5 A [facility] ([place] Comment on above: Performed By: #### L IP, GFR, ANEU, ESR, YASMANY, ADIFF, CRP, CBC, CMP #### [address] [address] Eosinophil, Absolute 0.5 10 3/mcL High 0.0-0.4 [facility] ([place]) Comment on above: Performed By: #### L IP, GFR, ANEU, ESR, YASMANY, ADIFF, CRP, CBC, CMP #### [address] [address] Eosinophils/100 WBC (Bld) 5.5 % Normal 0.0-7.0 [facility] ([place] Comment on above: Performed By: #### L IP, GFR, ANEU, ESR, YASMANY, ADIFF, CRP, CBC, CMP #### [address] [address] Lymphocyte, Absolute 2.6 10 3/mcL Normal 0.8-3.9 [facility] ([place]) Comment on above: Performed By: #### L IP, GFR, ANEU, ESR, YASMANY, ADIFF, CRP, CBC, CMP #### [address] [address] Lymphocytes/100 WBC (Bld) 26.5 % Normal 10.0-50.0 [facility] ([place] Comment on above: Performed By: #### L IP, GFR, ANEU, ESR, YASMANY, ADIFF, CRP, CBC, CMP #### [address] [address] Monocyte, Absolute 0.5 10 3/mcL Normal 0.2-1.0 [facility] ([place]) Comment on above: Performed By: #### L IP, GFR, ANEU, ESR, YASMANY, ADIFF, CRP, CBC, CMP #### [address] [address] Monocytes/100 WBC (Bld) 4.8 % Normal 1.7-13.0 [facility] ([place]) Comment on above: Performed By: #### L IP, GFR, ANEU, ESR, YASMANY, ADIFF, CRP, CBC, CMP #### [address] [address] Neutrophils/100 WBC (Bld) 62.2 % Normal 37.0-80.0 [facility] ([place] Comment on above: Performed By: #### L IP, GFR, ANEU, ESR, YASMANY, ADIFF, CRP, CBC, CMP #### [address] [address] .NEUABSon 12-08-2023 Neutrophil, Absolute 6.1 10 3/mcL Normal 2.9-6.2 [facility] ([place]) Comment on above: Performed By: #### L IP, GFR, ANEU, ESR, YASMANY, ADIFF, CRP, CBC, CMP #### [place] [address] CBCon 12-08-2023 Erythrocyte distribution width (RBC) [Ratio] 15.9 % High 11.5-14.5 [facility] ([place] Comment on above: Performed By: #### L IP, GFR, ANEU, ESR, YASMANY, ADIFF, CRP, CBC, CMP #### [place] [address] Hematocrit (Bld) [Volume fraction] 35.0 % Low 37.0-47.0 [facility] ([place] Comment on above: Performed By: #### L IP, GFR, ANEU, ESR, YASMANY, ADIFF, CRP, CBC, CMP #### [address] [address] Hgb 12.2 G/dL Normal 12.0-16.0 [facility] ([place] Comment on above: Performed By: #### L IP, GFR, ANEU, ESR, YASMANY, ADIFF, CRP, CBC, CMP #### [place] [address] MCH (RBC) [Entitic mass] 33.1 pg High 27.0-31.2 [facility] ([place] Comment on above: Performed By: #### L IP, GFR, ANEU, ESR, YASMANY, ADIFF, CRP, CBC, CMP #### [place] [address] MCHC 34.8 G/dL Normal 33.0-37.0 [facility] ([place] Comment on above: Performed By: #### L IP, GFR, ANEU, ESR, YASMANY, ADIFF, CRP, CBC, CMP #### [address] [address] MCV (RBC) [Entitic vol] 95.0 fL High 80.0-94.0 A [facility] ([place] Comment on above: Performed By: #### L IP, GFR, ANEU, ESR, YASMANY, ADIFF, CRP, CBC, CMP #### [address] [address] Platelet mean volume (Bld) [Entitic vol] 9.6 fL Normal 7.4-10.4 [facility] ([place] Comment on above: Performed By: #### L IP, GFR, ANEU, ESR, YASMANY, ADIFF, CRP, CBC, CMP #### [address] [address] RBC 3.68 10 6/mcL Low 4.20-5.40 [facility] ([place]) Comment on above: Performed By: #### L IP, GFR, ANEU, ESR, YASMANY, ADIFF, CRP, CBC, CMP #### [address] [address] WBC 9.8 10 3/mcL Normal 4.6-10.8 [facility] ([place] Comment on above: Performed By: #### L IP, GFR, ANEU, ESR, YASMANY, ADIFF, CRP, CBC, CMP #### [address] [address] Platelet 722 10 3/mcL High 130-400 [facility] ([place] Comment on above: Performed By: #### L IP, GFR, ANEU, ESR, YASMANY, ADIFF, CRP, CBC, CMP #### [address] [address] LABORATORYOrdered By: SYSTEM SYSTEM on 12-08-2023 Basophil, Absolute 0.1 103/mcL Normal 0.0 - 0.2 10^3/mcL AO Workflow SS Basophils/100 WBC (Bld) 1.0 % Normal 0.0 - 2.5 % AO Workflow SS Eosinophil, Absolute 0.5 103/mcL High 0.0 - 0 .4 10^3/mcL AO Workflow SS Eosinophils/100 WBC (Bld) 5.5 % Normal 0.0 - 7.0 % AO Workflow SS Erythrocyte distribution width (RBC) [Ratio] 15.9 % High 11.5 - 14.5 % AO Workflow SS Hematocrit (Bld) [Volume fraction] 35.0 % Low 37.0 - 47.0 % AO Workflow SS Hemoglobin (Bld) [Mass/Vol] 12.2 G/dL Normal 12.0 - 16.0 G/dL AO Workflow SS Lymphocyte, Absolute 2.6 103/mcL Normal 0.8 - 3 .9 10^3/mcL AO Workflow SS Lymphocytes/100 WBC (Bld) 26.5 % Normal 10.0 - 50.0 % AO Workflow SS MCH (RBC) [Entitic mass] 33.1 pg High 27. 0 - 31.2 pg AO Workflow SS MCHC 34.8 G/dL Normal 33.0 - 37.0 G/dL AO Workflow SS MCV (RBC) [Entitic vol] 95.0 fL High 80.0 - 94.0 fL AO Workflow SS Monocyte, Absolute 0.5 103/mcL Normal 0.2 - 1.0 10^3/mcL AO Workflow SS Monocytes/100 WBC (Bld) 4.8 % Normal 1.7 - 13.0 % AO Workflow SS Neutrophil, Absolute 6.1 103/mcL Normal 2.9 - 6 .2 10^3/mcL AO Workflow SS Neutrophils/100 WBC (Bld) 62.2 % Normal 37.0 - 80.0 % AO Workflow SS Platelet mean volume (Bld) [Entitic vol] 9.6 fL Normal 7.4 - 10.4 fL AO Workflow SS Platelets (Bld) [#/Vol] 722 103/mcL High 130 - 400 10^3/mcL AO Workflow SS RBC (Bld) [#/Vol] 3.68 106/mcL Low 4.20 - 5.4 0 10^6/mcL AO Workflow SS WBC (Bld) [#/Vol] 9.8 103/mcL Normal 4.6 - 10.8 10^3/mcL AO Workflow SS .Auto Diffon 12-02-2023 Basophil, Absolute 0.1 10 3/mcL Normal 0.0-0.3 [facility] ([place]) Comment on above: Performed By: #### L IP, GFR, ANEU, ESR, YASMANY, ADIFF, CRP, CBC, CMP #### [address] [id number] Basophils/100 WBC (Bld) 0.6 % Normal 0.0-2.5 A [facility] ([place]) Comment on above: Performed By: #### L IP, GFR, ANEU, ESR, YASMANY, ADIFF, CRP, CBC, CMP #### [address] [address] Eosinophil, Absolute 0.2 10 3/mcL Normal 0.0-0.7 [facility] ([place]) Comment on above: Performed By: #### L IP, GFR, ANEU, ESR, YASMANY, ADIFF, CRP, CBC, CMP #### [address] [id number] Eosinophils/100 WBC (Bld) 2.0 % Normal 0.0-6.0 [facility] ([place]) Comment on above: Performed By: #### L IP, GFR, ANEU, ESR, YASMANY, ADIFF, CRP, CBC, CMP #### [address] [id number] Lymphocyte, Absolute 1.3 10 3/mcL Normal 0.9-4.3 [facility] ([place] Comment on above: Performed By: #### L IP, GFR, ANEU, ESR, YASMANY, ADIFF, CRP, CBC, CMP #### [address] [address] Lymphocytes/100 WBC (Bld) 13.7 % Low 20.0-40.0 [facility] ([place] Comment on above: Performed By: #### L IP, GFR, ANEU, ESR, YASMANY, ADIFF, CRP, CBC, CMP #### [address] [address] Monocyte, Absolute 0.8 10 3/mcL Normal 0.1-1.4 [facility] ([place] Comment on above: Performed By: #### L IP, GFR, ANEU, ESR, YASMANY, ADIFF, CRP, CBC, CMP #### [address] [address] Monocytes/100 WBC (Bld) 8.4 % Normal 2.0-13.0 A [facility] ([place]) Comment on above: Performed By: #### L IP, GFR, ANEU, ESR, YASMANY, ADIFF, CRP, CBC, CMP #### [address] [address] Neutrophils/100 WBC (Bld) 75.3 % High 50.0-75.0 [facility] ([place]) Comment on above: Performed By: #### L IP, GFR, ANEU, ESR, YASMANY, ADIFF, CRP, CBC, CMP #### [address] [address] .GFRon 12-02-2023 GFR Non- >60 Normal [facility] ([place]) Comment on above: Result Comment: GFR Population mean for , Non- Americans Ages 20-29 = 116 mL/min/1.73 sq.m. Ages 30-39 = 107 mL/min/1.73 sq.m. Ages 40-49 = 99 mL/min/1.73 sq.m. Ages 50-59 = 93 mL/min/1.73 sq.m. Ages 60-69 = 85 mL/min/1.73 sq.m. Ages 70+ = 75 mL/min/1.73 sq.m. Chronic Kidney Disease: Less than 60 mL/min/1.73 square meters End Stage Renal Disease: Less than 15 mL/min/1.73 square meters Performed By: #### L IP, GFR, ANEU, ESR, YASMANY, ADIFF, CRP, CBC, CMP #### [address] [address] GFR >60 Normal [facility] ([place]) Comment on above: Result Comment: GFR Population mean for , Non- Americans Ages 20-29 = 116 mL/min/1.73 sq.m. Ages 30-39 = 107 mL/min/1.73 sq.m. Ages 40-49 = 99 mL/min/1.73 sq.m. Ages 50-59 = 93 mL/min/1.73 sq.m. Ages 60-69 = 85 mL/min/1.73 sq.m. Ages 70+ = 75 mL/min/1.73 sq.m. Chronic Kidney Disease: Less than 60 mL/min/1.73 square meters End Stage Renal Disease: Less than 15 mL/min/1.73 square meters Performed By: #### L IP, GFR, ANEU, ESR, YASMANY, ADIFF, CRP, CBC, CMP #### [address] [address] .NEUABSon 12-02-2023 Neutrophil, Absolute 7.1 10 3/mcL Normal 2.3-8.1 [facility] ([place]) Comment on above: Performed By: #### L IP, GFR, ANEU, ESR, YASMANY, ADIFF, CRP, CBC, CMP #### [place] [id number] CBCon 12-02-2023 Erythrocyte distribution width (RBC) [Ratio] 15.1 % Normal 11.5-15.5 [facility] ([place]) Comment on above: Performed By: #### L IP, GFR, ANEU, ESR, YASMANY, ADIFF, CRP, CBC, CMP #### [address] [address] Hematocrit (Bld) [Volume fraction] 31.7 % Low 34.0-46.0 [facility] ([place]) Comment on above: Performed By: #### L IP, GFR, ANEU, ESR, YASMANY, ADIFF, CRP, CBC, CMP #### [address] [address] Hgb 10.8 G/dL Low 12.0-16.0 [facility] ([place]) Comment on above: Performed By: #### L IP, GFR, ANEU, ESR, YASMANY, ADIFF, CRP, CBC, CMP #### [address] [address] MCH (RBC) [Entitic mass] 32.7 pg Normal 27.0-33.0 [facility] ([place]) Comment on above: Performed By: #### L IP, GFR, ANEU, ESR, YASMANY, ADIFF, CRP, CBC, CMP #### [address] [address] MCHC 34.0 G/dL Normal 32.0-36.0 [facility] ([place]) Comment on above: Performed By: #### L IP, GFR, ANEU, ESR, YASMANY, ADIFF, CRP, CBC, CMP #### [address] [address] MCV (RBC) [Entitic vol] 96.0 fL Normal 80.0-99.0 A [facility] ([place] Comment on above: Performed By: #### L IP, GFR, ANEU, ESR, YASMANY, ADIFF, CRP, CBC, CMP #### [address] [address] Platelet 405 10 3/mcL Normal 150-450 [facility] ([place]) Comment on above: Performed By: #### L IP, GFR, ANEU, ESR, YASMANY, ADIFF, CRP, CBC, CMP #### [address] [address] Platelet mean volume (Bld) [Entitic vol] 9.6 fL Normal 6.6-10.5 [facility] ([place]) Comment on above: Performed By: #### L IP, GFR, ANEU, ESR, YASMANY, ADIFF, CRP, CBC, CMP #### [address] [address] RBC 3.30 10 6/mcL Low 4.10-5.30 [facility] ([place]) Comment on above: Performed By: #### L IP, GFR, ANEU, ESR, YASMANY, ADIFF, CRP, CBC, CMP #### [address] [address] WBC 9.5 10 3/mcL Normal 4.5-10.8 [facility] ([place]) Comment on above: Performed By: #### L IP, GFR, ANEU, ESR, YASMANY, ADIFF, CRP, CBC, CMP #### [address] [address] CMPon 12-02-2023 BUN/Creatinine Ratio Unable to Calculate Normal 10.0-2 2.0 [facility] ([place]) Comment on above: Result Comment: Unab le to calculate this test result accurately. Results used to calculate this test are outside the reportable range. Performed By: #### L IP, GFR, ANEU, ESR, YASMANY, ADIFF, CRP, CBC, CMP #### [address] [address] Urea nitrogen [Mass/Vol] mg/dL Low 8.0-22.0 [facility] ([place]) Comment on above: Performed By: #### L IP, GFR, ANEU, ESR, YASMANY, ADIFF, CRP, CBC, CMP #### [address] [address] Albumin Level 1.8 G/dL Low 3.2-4.8 [facility] ([place]) Comment on above: Performed By: #### L IP, GFR, ANEU, ESR, YASMANY, ADIFF, CRP, CBC, CMP #### [address] [address] Albumin/Globulin [Mass ratio] 0.6 {ratio} Low 0.9-1.6 [facility] ([place] Comment on above: Performed By: #### L IP, GFR, ANEU, ESR, YASMANY, ADIFF, CRP, CBC, CMP #### [address] [address] ALP [Catalytic activity/Vol] 73 U/L Normal 38-126 [facility] ([place]) Comment on above: Performed By: #### L IP, GFR, ANEU, ESR, YASMANY, ADIFF, CRP, CBC, CMP #### [address] [address] ALT [Catalytic activity/Vol] 9 U/L Low 10-49 [facility] ([place]) Comment on above: Performed By: #### L IP, GFR, ANEU, ESR, YASMANY, ADIFF, CRP, CBC, CMP #### [address] [address] AST [Catalytic activity/Vol] 10 U/L Normal 8-34 [facility] ([place]) Comment on above: Performed By: #### L IP, GFR, ANEU, ESR, YASMANY, ADIFF, CRP, CBC, CMP #### [address] [address] Bili Total 0.50 mg/dL Normal 0.20-1.20 [facility] ([place]) Comment on above: Result Comment: Use of this assay is not recommended for patients undergoing treatment with eltrombopag due to the potential for falsely elevated results. Performed By: #### L IP, GFR, ANEU, ESR, YASMANY, ADIFF, CRP, CBC, CMP #### [address] [address] Calcium [Mass/Vol] 7.7 mg/dL Low 8.7-10.4 [facility] ([place]) Comment on above: Performed By: #### L IP, GFR, ANEU, ESR, YASMANY, ADIFF, CRP, CBC, CMP #### [address] [address] Chloride [Moles/Vol] 102 mmol/L Normal 98-110 [facility] ([place]) Comment on above: Performed By: #### L IP, GFR, ANEU, ESR, YASMANY, ADIFF, CRP, CBC, CMP #### [address] [address] CO2 [Moles/Vol] 27 mmol/L Normal 22-32 [facility] ([place]) Comment on above: Performed By: #### L IP, GFR, ANEU, ESR, YASMANY, ADIFF, CRP, CBC, CMP #### [address] [address] Creatinine [Mass/Vol] 0.38 mg/dL Low 0.50-1.20 [facility] ([place]) Comment on above: Performed By: #### L IP, GFR, ANEU, ESR, YASMANY, ADIFF, CRP, CBC, CMP #### [address] [address] Electrolyte Balance 8.0 mEq/L Normal 4.0-15.0 [facility] ([place]) Comment on above: Performed By: #### L IP, GFR, ANEU, ESR, YASMANY, ADIFF, CRP, CBC, CMP #### [address] [address] Globulin 3.1 G/dL Normal 1.5-3.8 [facility] ([place]) Comment on above: Performed By: #### L IP, GFR, ANEU, ESR, YASMANY, ADIFF, CRP, CBC, CMP #### [address] [address] Glucose [Mass/Vol] 101 mg/dL Normal 70-110 [facility] ([place]) Comment on above: Performed By: #### L IP, GFR, ANEU, ESR, YASMANY, ADIFF, CRP, CBC, CMP #### [address] [address] Potassium [Moles/Vol] 3.5 mmol/L Normal 3.5-5.0 [facility] ([place]) Comment on above: Performed By: #### L IP, GFR, ANEU, ESR, YASMANY, ADIFF, CRP, CBC, CMP #### [address] [address] Sodium [Moles/Vol] 137 mmol/L Normal 136-145 [facility] ([place]) Comment on above: Performed By: #### L IP, GFR, ANEU, ESR, YASMANY, ADIFF, CRP, CBC, CMP #### [address] [address] Total Protein 4.9 G/dL Low 5.7-8.2 [facility] ([place]) Comment on above: Result Comment: No te - New Reference Range in effect 20 Performed By: #### L IP, GFR, ANEU, ESR, YASMANY, ADIFF, CRP, CBC, CMP #### [address] [address] LABORATORYOrdered By: SYSTEM SYSTEM on 12-02-2023 Albumin BCP dye [Mass/Vol] 1.8 G/dL Low 3.2 - 4.8 G/dL ADM SS Albumin/Globulin [Mass ratio] 0.6 {ratio} Low 0.9 - 1.6 ratio ADM SS ALP [Catalytic activity/Vol] 73 U/L Normal 38 - 126 U/L ADM SS ALT No additional P-5'-P [Catalytic activity/Vol] 9 U/L Low 10 - 49 U/L ADM SS AST [Catalytic activity/Vol] 10 U/L Normal 8 - 34 U/L ADM SS Basophils (Bld) [#/Vol] 0.1 103/mcL Normal 0.0 - 0.3 10^3/mcL Workflow SS Basophils/100 WBC (Bld) 0.6 % Normal 0.0 - 2.5 % Workflow SS Bilirubin [Mass/Vol] 0.50 mg/dL Normal 0.20 - 1.20 mg/dL ADM SS Comment on above: Interpretive Data: U se of this assay is not recommended for patients undergoing treatment with eltrombopag due to the potential for falsely elevated results. Calcium [Mass/Vol] 7.7 mg/dL Low 8.7 - 10. 4 mg/dL ADM SS Chloride [Moles/Vol] 102 mmol/L Normal 98 - 11 0 mEq/L ADM SS CO2 [Moles/Vol] 27 mmol/L Normal 22 - 32 mEq/L ADM SS Creatinine [Mass/Vol] 0.38 mg/dL Low 0.50 - 1.20 mg/dL ADM SS Electrolyte Balance 8.0 mEq/L Normal 4.0 - 15 .0 mEq/L ADM SS Eosinophils (Bld) [#/Vol] 0.2 103/mcL Normal 0.0 - 0.7 10^3/mcL Workflow SS Eosinophils/100 WBC (Bld) 2.0 % Normal 0.0 - 6.0 % Workflow SS Erythrocyte distribution width (RBC) [Ratio] 15.1 % Normal 11.5 - 15.5 % Workflow SS GFR/1.73 sq M.predicted among blacks MDRD (S/P/Bld) [Vol rate/Area] ml/min/1.73sqm Invalid Interpretation Code Chemistry S Comment on above: Interpretive Data: GFR Population mean for , Non- Americans Ages 20-29 = 116 mL/min/1.73 sq.m. Ages 30-39 = 107 mL/min/1.73 sq.m. Ages 40-49 = 99 mL/min/1.73 sq.m. Ages 50-59 = 93 mL/min/1.73 sq.m. Ages 60-69 = 85 mL/min/1.73 sq.m. Ages 70+ = 75 mL/min/1.73 sq.m. Chronic Kidney Disease: Less than 60 mL/min/1.73 square meters End Stage Renal Disease: Less than 15 mL/min/1.73 square meters GFR/1.73 sq M.predicted among non-blacks MDRD (S/P/Bld) [Vol rate/Area] ml/min/1.73sqm Invalid Interpretation Code Chemistry S Comment on above: Interpretive Data: GFR Population mean for , Non- Americans Ages 20-29 = 116 mL/min/1.73 sq.m. Ages 30-39 = 107 mL/min/1.73 sq.m. Ages 40-49 = 99 mL/min/1.73 sq.m. Ages 50-59 = 93 mL/min/1.73 sq.m. Ages 60-69 = 85 mL/min/1.73 sq.m. Ages 70+ = 75 mL/min/1.73 sq.m. Chronic Kidney Disease: Less than 60 mL/min/1.73 square meters End Stage Renal Disease: Less than 15 mL/min/1.73 square meters Globulin 3.1 G/dL Normal 1.5 - 3.8 G/dL ADM SS Glucose [Mass/Vol] 101 mg/dL Normal 70 - 110 mg/dL ADM SS Hematocrit (Bld) [Volume fraction] 31.7 % Low 34.0 - 46.0 % Workflow SS Hemoglobin (Bld) [Mass/Vol] 10.8 G/dL Low 12.0 - 16.0 G/dL AH Workflow SS Lymphocytes (Bld) [#/Vol] 1.3 103/mcL Normal 0.9 - 4.3 10^3/mcL Workflow SS Lymphocytes/100 WBC (Bld) 13.7 % Low 20.0 - 40.0 % Workflow SS Magnesium [Mass/Vol] 1.7 mg/dL Normal 1.6 - 2 .4 mg/dL ADM SS MCH (RBC) [Entitic mass] 32.7 pg Normal 27. 0 - 33.0 pg AH Workflow SS MCHC 34.0 G/dL Normal 32.0 - 36.0 G/dL AH Workflow SS MCV (RBC) [Entitic vol] 96.0 fL Normal 80.0 - 99.0 fL AH Workflow SS Monocytes (Bld) [#/Vol] 0.8 103/mcL Normal 0.1 - 1.4 10^3/mcL Workflow SS Monocytes/100 WBC (Bld) 8.4 % Normal 2.0 - 13.0 % AH Workflow SS Neutrophils (Bld) [#/Vol] 7.1 103/mcL Normal 2.3 - 8.1 10^3/mcL AH Workflow SS Neutrophils/100 WBC (Bld) 75.3 % High 50.0 - 75.0 % Workflow SS Platelet mean volume (Bld) [Entitic vol] 9.6 fL Normal 6.6 - 10.5 fL Workflow SS Platelets (Bld) [#/Vol] 405 103/mcL Normal 150 - 450 10^3/mcL Workflow SS Potassium [Moles/Vol] 3.5 mmol/L Normal 3.5 - 5.0 mEq/L ADM SS Protein [Mass/Vol] 4.9 G/dL Low 5.7 - 8.2 G/dL ADM SS Comment on above: Interpretive Data: * *Note - New Reference Range in effect 20 RBC (Bld) [#/Vol] 3.30 106/mcL Low 4.10 - 5.3 0 10^6/mcL Workflow SS Sodium [Moles/Vol] 137 mmol/L Normal 136 - 145 mEq/L ADM SS WBC (Bld) [#/Vol] 9.5 103/mcL Normal 4.5 - 10.8 10^3/mcL Workflow SS LABORATORYOrdered By: Daksha Lozano on 12-02-2023 Urea nitrogen [Mass/Vol] mg/dL Low 8.0 - 22.0 mg/dL Chemistry S Urea nitrogen/Creatinine [Mass ratio] Unable to Calculate Invalid Interpretation Code 10.0 - 22.0 Chemistry S Comment on above: Result Comment: Unab le to calculate this test result accurately. Results used to calculate this test are outside the reportable range. MGon 12-02-2023 Magnesium [Mass/Vol] 1.7 mg/dL Normal 1.6-2.4 [facility] ([place]) Comment on above: Performed By: #### L IP, GFR, ANEU, ESR, YASMANY, ADIFF, CRP, CBC, CMP #### [address] [address] .Auto Diffon 12-01-2023 Basophil, Absolute 0.0 10 3/mcL Normal 0.0-0.3 [facility] ([place]) Comment on above: Performed By: #### L IP, GFR, ANEU, ESR, YASMANY, ADIFF, CRP, CBC, CMP #### [address] [address] Basophils/100 WBC (Bld) 0.3 % Normal 0.0-2.5 A [facility] ([place]) Comment on above: Performed By: #### L IP, GFR, ANEU, ESR, YASMANY, ADIFF, CRP, CBC, CMP #### [address] [address] Eosinophil, Absolute 0.2 10 3/mcL Normal 0.0-0.7 [facility] ([place]) Comment on above: Performed By: #### L IP, GFR, ANEU, ESR, YASMANY, ADIFF, CRP, CBC, CMP #### [address] [address] Eosinophils/100 WBC (Bld) 1.9 % Normal 0.0-6.0 [facility] ([place]) Comment on above: Performed By: #### L IP, GFR, ANEU, ESR, YASMANY, ADIFF, CRP, CBC, CMP #### [address] [address] Lymphocyte, Absolute 1.7 10 3/mcL Normal 0.9-4.3 [facility] ([place]) Comment on above: Performed By: #### L IP, GFR, ANEU, ESR, YASMANY, ADIFF, CRP, CBC, CMP #### [address] [address] Lymphocytes/100 WBC (Bld) 13.2 % Low 20.0-40.0 [facility] ([place]) Comment on above: Performed By: #### L IP, GFR, ANEU, ESR, YASMANY, ADIFF, CRP, CBC, CMP #### [address] [address] Monocyte, Absolute 1.0 10 3/mcL Normal 0.1-1.4 [facility] ([place]) Comment on above: Performed By: #### L IP, GFR, ANEU, ESR, YASMANY, ADIFF, CRP, CBC, CMP #### [address] [address] Monocytes/100 WBC (Bld) 7.9 % Normal 2.0-13.0 A [facility] ([place] Comment on above: Performed By: #### L IP, GFR, ANEU, ESR, YASMANY, ADIFF, CRP, CBC, CMP #### [address] [address] Neutrophils/100 WBC (Bld) 76.7 % High 50.0-75.0 [facility] ([place] Comment on above: Performed By: #### L IP, GFR, ANEU, ESR, YASMANY, ADIFF, CRP, CBC, CMP #### [address] [address] .GFRon 12-01-2023 GFR >60 Normal [facility] ([place]) Comment on above: Result Comment: GFR Population mean for , Non- Americans Ages 20-29 = 116 mL/min/1.73 sq.m. Ages 30-39 = 107 mL/min/1.73 sq.m. Ages 40-49 = 99 mL/min/1.73 sq.m. Ages 50-59 = 93 mL/min/1.73 sq.m. Ages 60-69 = 85 mL/min/1.73 sq.m. Ages 70+ = 75 mL/min/1.73 sq.m. Chronic Kidney Disease: Less than 60 mL/min/1.73 square meters End Stage Renal Disease: Less than 15 mL/min/1.73 square meters Performed By: #### L IP, GFR, ANEU, ESR, YASMANY, ADIFF, CRP, CBC, CMP #### [facility] [place] [address] [place], [place] [address] GFR Non- >60 Normal [facility] ([place]) Comment on above: Result Comment: GFR Population mean for , Non- Americans Ages 20-29 = 116 mL/min/1.73 sq.m. Ages 30-39 = 107 mL/min/1.73 sq.m. Ages 40-49 = 99 mL/min/1.73 sq.m. Ages 50-59 = 93 mL/min/1.73 sq.m. Ages 60-69 = 85 mL/min/1.73 sq.m. Ages 70+ = 75 mL/min/1.73 sq.m. Chronic Kidney Disease: Less than 60 mL/min/1.73 square meters End Stage Renal Disease: Less than 15 mL/min/1.73 square meters Performed By: #### L IP, GFR, ANEU, ESR, YASMANY, ADIFF, CRP, CBC, CMP #### [address] [address] .NEUABSon 12-01-2023 Neutrophil, Absolute 9.7 10 3/mcL High 2.3-8.1 [facility] ([place]) Comment on above: Performed By: #### L IP, GFR, ANEU, ESR, YASMANY, ADIFF, CRP, CBC, CMP #### [address] [address] CBCon 12-01-2023 Erythrocyte distribution width (RBC) [Ratio] 15.3 % Normal 11.5-15.5 [facility] ([place]) Comment on above: Performed By: #### L IP, GFR, ANEU, ESR, YASMANY, ADIFF, CRP, CBC, CMP #### [address] [address] Hematocrit (Bld) [Volume fraction] 34.7 % Normal 34.0-46.0 [facility] ([place] Comment on above: Performed By: #### L IP, GFR, ANEU, ESR, YASMANY, ADIFF, CRP, CBC, CMP #### [address] [address] Hgb 11.6 G/dL Low 12.0-16.0 [facility] ([place] Comment on above: Performed By: #### L IP, GFR, ANEU, ESR, YASMANY, ADIFF, CRP, CBC, CMP #### [address] [address] MCH (RBC) [Entitic mass] 32.0 pg Normal 27.0-33.0 [facility] ([place] Comment on above: Performed By: #### L IP, GFR, ANEU, ESR, YASMANY, ADIFF, CRP, CBC, CMP #### [address] [address] MCHC 33.3 G/dL Normal 32.0-36.0 [facility] ([place]) Comment on above: Performed By: #### L IP, GFR, ANEU, ESR, YASMANY, ADIFF, CRP, CBC, CMP #### [address] [address] MCV (RBC) [Entitic vol] 96.1 fL Normal 80.0-99.0 [facility] ([place]) Comment on above: Performed By: #### L IP, GFR, ANEU, ESR, YASMANY, ADIFF, CRP, CBC, CMP #### [address] [address] Platelet 445 10 3/mcL Normal 150-450 [facility] ([place]) Comment on above: Performed By: #### L IP, GFR, ANEU, ESR, YASMANY, ADIFF, CRP, CBC, CMP #### [address] [address] Platelet mean volume (Bld) [Entitic vol] 9.2 fL Normal 6.6-10.5 [facility] ([place] Comment on above: Performed By: #### L IP, GFR, ANEU, ESR, YASMANY, ADIFF, CRP, CBC, CMP #### [address] [address] RBC 3.61 10 6/mcL Low 4.10-5.30 [facility] ([place]) Comment on above: Performed By: #### L IP, GFR, ANEU, ESR, YASMANY, ADIFF, CRP, CBC, CMP #### [place] [id number] WBC 12.7 10 3/mcL High 4.5-10.8 [facility]) Comment on above: Performed By: #### L IP, GFR, ANEU, ESR, YASMANY, ADIFF, CRP, CBC, CMP #### [place] [phone] CMPon 12-01-2023 ALT/SGPT <7 Low 10-49 [facility] ([place] Comment on above: Performed By: #### L IP, GFR, ANEU, ESR, YASMANY, ADIFF, CRP, CBC, CMP #### [place] [address] BUN/Creatinine Ratio Unable to Calculate Normal 10.0-2 2.0 [facility]) Comment on above: Result Comment: Unab le to calculate this test result accurately. Results used to calculate this test are outside the reportable range. Performed By: #### L IP, GFR, ANEU, ESR, YASMANY, ADIFF, CRP, CBC, CMP #### [place] [phone] Urea nitrogen [Mass/Vol] mg/dL Low 8.0-22.0 [facility]) Comment on above: Performed By: #### L IP, GFR, ANEU, ESR, YASMANY, ADIFF, CRP, CBC, CMP #### [place] [phone] Albumin Level 2.0 G/dL Low 3.2-4.8 [facility] ([place]) Comment on above: Performed By: #### L IP, GFR, ANEU, ESR, YASMANY, ADIFF, CRP, CBC, CMP #### [place] [address] Bili Total 0.40 mg/dL Normal 0.20-1.20 [facility] ([place]) Comment on above: Result Comment: Use of this assay is not recommended for patients undergoing treatment with eltrombopag due to the potential for falsely elevated results. Performed By: #### L IP, GFR, ANEU, ESR, YASMANY, ADIFF, CRP, CBC, CMP #### [address] [address] Total Protein 5.2 G/dL Low 5.7-8.2 [facility] ([place]) Comment on above: Result Comment: No te - New Reference Range in effect 20 Performed By: #### L IP, GFR, ANEU, ESR, YASMANY, ADIFF, CRP, CBC, CMP #### [address] [address] CMPOrdered By: SYSTEM SYSTEM on 12-01-2023 Albumin/Globulin [Mass ratio] 0.6 {ratio} Low 0.9-1.6 AH ADM SS Comment on above: Performed By: #### L IP, GFR, ANEU, ESR, YASMANY, ADIFF, CRP, CBC, CMP #### [address] [address] ALP [Catalytic activity/Vol] 95 U/L Normal 38-126 AH ADM SS Comment on above: Performed By: #### L IP, GFR, ANEU, ESR, YASMANY, ADIFF, CRP, CBC, CMP #### [address] [address] AST [Catalytic activity/Vol] 15 U/L Normal 8-34 AH ADM SS Comment on above: Performed By: #### L IP, GFR, ANEU, ESR, YASMANY, ADIFF, CRP, CBC, CMP #### [address] [address] Calcium [Mass/Vol] 7.9 mg/dL Low 8.7-10.4 AH ADM SS Comment on above: Performed By: #### L IP, GFR, ANEU, ESR, YASMANY, ADIFF, CRP, CBC, CMP #### [address] [address] Chloride [Moles/Vol] 102 mmol/L Normal 98-110 AH A DM SS Comment on above: Performed By: #### L IP, GFR, ANEU, ESR, YASMANY, ADIFF, CRP, CBC, CMP #### [place] [address] CO2 [Moles/Vol] 25 mmol/L Normal 22-32 AH ADM SS Comment on above: Performed By: #### L IP, GFR, ANEU, ESR, YASMANY, ADIFF, CRP, CBC, CMP #### [place] [phone] Creatinine [Mass/Vol] 0.42 mg/dL Low 0.50-1.20 AH ADM SS Comment on above: Performed By: #### L IP, GFR, ANEU, ESR, YASMANY, ADIFF, CRP, CBC, CMP #### [place] [address] Electrolyte Balance 10.0 mEq/L Normal 4.0-15.0 AH AD M SS Comment on above: Performed By: #### L IP, GFR, ANEU, ESR, YASMANY, ADIFF, CRP, CBC, CMP #### [place] [address] Globulin 3.2 G/dL Normal 1.5-3.8 AH ADM SS Comment on above: Performed By: #### L IP, GFR, ANEU, ESR, YASMANY, ADIFF, CRP, CBC, CMP #### [place] [address] Glucose [Mass/Vol] 81 mg/dL Normal 70-110 AH ADM SS Comment on above: Performed By: #### L IP, GFR, ANEU, ESR, YASMANY, ADIFF, CRP, CBC, CMP #### [place] [address] Potassium [Moles/Vol] 3.5 mmol/L Normal 3.5-5.0 AH ADM SS Comment on above: Performed By: #### L IP, GFR, ANEU, ESR, YASMANY, ADIFF, CRP, CBC, CMP #### [place] [address] Sodium [Moles/Vol] 137 mmol/L Normal 136-145 AH ADM SS Comment on above: Performed By: #### L IP, GFR, ANEU, ESR, YASMANY, ADIFF, CRP, CBC, CMP #### [place] [id number] [place], [place] [address] CT ABDOMEN/PELVIS W/CONTRAST on 12-01-2023 CT ABDOMEN/PELVIS W/CONTRAST ORIGINAL EXAMINATION: CT OF THE ABDOMEN AND PELVIS WITH CONTRAST 11/30/2023 7:45 pm TECHNIQUE: CT of the abdomen and pelvis was performed with the administration of intravenous contrast. Multiplanar reformatted images are provided for review. Automated exposure control, iterative reconstruction, and/or weight based adjustment of the mA/kV was utilized to reduce the radiation dose to as low as reasonably achievable. COMPARISON: CT abdomen pelvis with IV contrast 11/27/2023. HISTORY: ORDERING SYSTEM PROVIDED HISTORY: Cholecystectomy. Reason for Exam: Abdominal pain with diarrhea and bloating x1 week. FINDINGS: Moderate right and small left pleural effusion, mildly improved. There is adjacent bibasilar compressive atelectasis. Trace pericardial fluid. Small gastric fundus diverticulum. Gallbladder is surgically absent. Diffuse hypoattenuation of liver parenchyma is suggestive of hepatic steatosis and/or diffuse hepatocellular disease. Focal area of fatty infiltration around the falciform ligament. Spleen and adrenal glands are unremarkable. 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 Perisplenic fluid, and fluid tracking along the left anterior pararenal space into the left colonic gutter is mildly decreased. Portal vein, splenic and superior mesenteric veins are patent. Normal pancreatic enhancement with no definite evidence of pancreatic necrosis. Mild wall thickening of 2/3rd duodenal segment, likely due reactive duodenitis. Perihepatic, perisplenic, abdominal and pelvic ascites has mildly improved. Kidneys are symmetric in size and enhancement without hydronephrosis or urolithiasis. Urinary bladder is unremarkable. Uterus is unremarkable. No adnexal mass. There is interval improvement in jejunum and proximal ileal wall thickening and surrounding mesenteric haziness/edema, suggest improving enteritis. No significant change in long segment terminal ileum enteritis with surrounding inflammation. Multiple moderately dilated fluid and gas filled loops of small bowel are again noted measuring up to 4 cm, suggestive small-bowel obstruction in setting of terminal ileitis. There is no evidence of new pneumatosis, definite intraperitoneal free air or focal fluid collection/abscess. Prominent retroperitoneal lymph nodes are likely reactive in nature. Colon are normal in caliber. Appendix is not seen. Nonaneurysmal aorto-iliac arteries. No acute fracture or destructive osseous lesion. Tiny bone island in the right femoral head. Mild anasarca. IMPRESSION: 1. Redemonstrated findings of acute edematous interstitial pancreatitis. No definite evidence of pancreatic necrosis, peripancreatic cyst/abscess. 2. Interval improvement in jejunum and proximal ileal enteritis. No significant change in long segment terminal ileum enteritis. 3. Multiple moderately dilated fluid and gas filled loops of small bowel are again noted, suggestive of low-grade small bowel obstruction in setting of terminal ileitis. 4. Mild improvement in abdominopelvic ascites. 5. Prominent retroperitoneal lymph nodes are likely reactive in nature. 6. Moderate right and small left pleural effusion, mildly improved. 7. Hepatic steatosis and/or diffuse hepatocellular disease. I have personally reviewed the images of this examination and agree with the resident's finding and interpretation. Interpreted by: Martín Gage MD Preliminary Report By: Inga Shannon Electronically signed By Martín Gage MD Dictated Date: 12/01/2023 8:28:15 AM Prelim Date: 12/01/2023 11:55:02 AM Sign Date: 12/01/2023 11:55:02 AM Ordering Provider: JUICE Raza [facility] ([place] LABORATORYOrdered By: SYSTEM SYSTEM on 12-01-2023 Basophils (Bld) [#/Vol] 0.0 103/mcL Normal 0.0 - 0.3 10^3/mcL AH Workflow SS Basophils/100 WBC (Bld) 0.3 % Normal 0.0 - 2.5 % AH Workflow SS Eosinophils (Bld) [#/Vol] 0.2 103/mcL Normal 0.0 - 0.7 10^3/mcL AH Workflow SS Eosinophils/100 WBC (Bld) 1.9 % Normal 0.0 - 6.0 % AH Workflow SS Erythrocyte distribution width (RBC) [Ratio] 15.3 % Normal 11.5 - 15.5 % AH Workflow SS Hematocrit (Bld) [Volume fraction] 34.7 % Normal 34.0 - 46.0 % AH Workflow SS Hemoglobin (Bld) [Mass/Vol] 11.6 G/dL Low 12.0 - 16.0 G/dL AH Workflow SS Lymphocytes (Bld) [#/Vol] 1.7 103/mcL Normal 0.9 - 4.3 10^3/mcL AH Workflow SS Lymphocytes/100 WBC (Bld) 13.2 % Low 20.0 - 40.0 % AH Workflow SS MCH (RBC) [Entitic mass] 32.0 pg Normal 27. 0 - 33.0 pg AH Workflow SS MCHC 33.3 G/dL Normal 32.0 - 36.0 G/dL AH Workflow SS MCV (RBC) [Entitic vol] 96.1 fL Normal 80.0 - 99.0 fL AH Workflow SS Monocytes (Bld) [#/Vol] 1.0 103/mcL Normal 0.1 - 1.4 10^3/mcL AH Workflow SS Monocytes/100 WBC (Bld) 7.9 % Normal 2.0 - 13.0 % AH Workflow SS Neutrophils (Bld) [#/Vol] 9.7 103/mcL High 2.3 - 8.1 10^3/mcL AH Workflow SS Neutrophils/100 WBC (Bld) 76.7 % High 50.0 - 75.0 % AH Workflow SS Platelet mean volume (Bld) [Entitic vol] 9.2 fL Normal 6.6 - 10.5 fL AH Workflow SS Platelets (Bld) [#/Vol] 445 103/mcL Normal 150 - 450 10^3/mcL AH Workflow SS RBC (Bld) [#/Vol] 3.61 106/mcL Low 4.10 - 5.3 0 10^6/mcL AH Workflow SS WBC (Bld) [#/Vol] 12.7 103/mcL High 4.5 - 10.8 10^3/mcL AH Workflow SS Albumin BCP dye [Mass/Vol] 2.0 G/dL Low 3.2 - 4.8 G/dL ADM SS ALT No additional P-5'-P [Catalytic activity/Vol] U/L 1 Low 10 - 49 U/L ADM SS Bilirubin [Mass/Vol] 0.40 mg/dL Normal 0.20 - 1.20 mg/dL ADM SS Comment on above: Interpretive Data: U se of this assay is not recommended for patients undergoing treatment with eltrombopag due to the potential for falsely elevated results. GFR/1.73 sq M.predicted among blacks MDRD (S/P/Bld) [Vol rate/Area] ml/min/1.73sqm Invalid Interpretation Code Chemistry S Comment on above: Interpretive Data: GFR Population mean for , Non- Americans Ages 20-29 = 116 mL/min/1.73 sq.m. Ages 30-39 = 107 mL/min/1.73 sq.m. Ages 40-49 = 99 mL/min/1.73 sq.m. Ages 50-59 = 93 mL/min/1.73 sq.m. Ages 60-69 = 85 mL/min/1.73 sq.m. Ages 70+ = 75 mL/min/1.73 sq.m. Chronic Kidney Disease: Less than 60 mL/min/1.73 square meters End Stage Renal Disease: Less than 15 mL/min/1.73 square meters GFR/1.73 sq M.predicted among non-blacks MDRD (S/P/Bld) [Vol rate/Area] ml/min/1.73sqm Invalid Interpretation Code Chemistry S Comment on above: Interpretive Data: GFR Population mean for , Non- Americans Ages 20-29 = 116 mL/min/1.73 sq.m. Ages 30-39 = 107 mL/min/1.73 sq.m. Ages 40-49 = 99 mL/min/1.73 sq.m. Ages 50-59 = 93 mL/min/1.73 sq.m. Ages 60-69 = 85 mL/min/1.73 sq.m. Ages 70+ = 75 mL/min/1.73 sq.m. Chronic Kidney Disease: Less than 60 mL/min/1.73 square meters End Stage Renal Disease: Less than 15 mL/min/1.73 square meters Protein [Mass/Vol] 5.2 G/dL Low 5.7 - 8.2 G/dL ADM Comment on above: Interpretive Data: * *Note - New Reference Range in effect 20 LABORATORYOrdered By: Gerber Phillips on 12-01-2023 Urea nitrogen [Mass/Vol] mg/dL Low 8.0 - 22.0 mg/dL Chemistry S Urea nitrogen/Creatinine [Mass ratio] Unable to Calculate Invalid Interpretation Code 10.0 - 22.0 Chemistry S Comment on above: Result Comment: Unab le to calculate this test result accurately. Results used to calculate this test are outside the reportable range. MGOrdered By: SYSTEM SYSTEM on 12-01-2023 Magnesium [Mass/Vol] 1.6 mg/dL Normal 1.6-2.4 AH A DM SS Comment on above: Performed By: #### L IP, GFR, ANEU, ESR, YASMANY, ADIFF, CRP, CBC, CMP #### [address] [address] .Auto Diffon 11-30-2023 Basophil, Absolute 0.0 10 3/mcL Normal 0.0-0.3 [facility] ([place]) Comment on above: Performed By: #### L IP, GFR, ANEU, ESR, YASMANY, ADIFF, CRP, CBC, CMP #### [address] [address] Basophils/100 WBC (Bld) 0.2 % Normal 0.0-2.5 A [facility] ([place] Comment on above: Performed By: #### L IP, GFR, ANEU, ESR, YASMANY, ADIFF, CRP, CBC, CMP #### [address] [address] Eosinophil, Absolute 0.3 10 3/mcL Normal 0.0-0.7 [facility] ([place]) Comment on above: Performed By: #### L IP, GFR, ANEU, ESR, YASMANY, ADIFF, CRP, CBC, CMP #### [address] [address] Eosinophils/100 WBC (Bld) 2.4 % Normal 0.0-6.0 [facility] ([place]) Comment on above: Performed By: #### L IP, GFR, ANEU, ESR, YASMANY, ADIFF, CRP, CBC, CMP #### [address] [address] Lymphocyte, Absolute 1.7 10 3/mcL Normal 0.9-4.3 [facility] ([place] Comment on above: Performed By: #### L IP, GFR, ANEU, ESR, YASMANY, ADIFF, CRP, CBC, CMP #### [address] [address] Lymphocytes/100 WBC (Bld) 16.1 % Low 20.0-40.0 [facility] ([place] Comment on above: Performed By: #### L IP, GFR, ANEU, ESR, YASMANY, ADIFF, CRP, CBC, CMP #### [address] [address] Monocyte, Absolute 0.9 10 3/mcL Normal 0.1-1.4 [facility] ([place] Comment on above: Performed By: #### L IP, GFR, ANEU, ESR, YASMANY, ADIFF, CRP, CBC, CMP #### [address] [address] Monocytes/100 WBC (Bld) 8.5 % Normal 2.0-13.0 A [facility] ([place] Comment on above: Performed By: #### L IP, GFR, ANEU, ESR, YASMANY, ADIFF, CRP, CBC, CMP #### [address] [address] Neutrophils/100 WBC (Bld) 72.8 % Normal 50.0-75.0 [facility] ([place] Comment on above: Performed By: #### L IP, GFR, ANEU, ESR, YASMANY, ADIFF, CRP, CBC, CMP #### [address] [address] .GFRon 11-30-2023 GFR >60 Normal [facility] ([place]) Comment on above: Result Comment: GFR Population mean for , Non- Americans Ages 20-29 = 116 mL/min/1.73 sq.m. Ages 30-39 = 107 mL/min/1.73 sq.m. Ages 40-49 = 99 mL/min/1.73 sq.m. Ages 50-59 = 93 mL/min/1.73 sq.m. Ages 60-69 = 85 mL/min/1.73 sq.m. Ages 70+ = 75 mL/min/1.73 sq.m. Chronic Kidney Disease: Less than 60 mL/min/1.73 square meters End Stage Renal Disease: Less than 15 mL/min/1.73 square meters Performed By: #### L IP, GFR, ANEU, ESR, YASMANY, ADIFF, CRP, CBC, CMP #### [address] [address] GFR Non- >60 Normal [facility] ([place] Comment on above: Result Comment: GFR Population mean for , Non- Americans Ages 20-29 = 116 mL/min/1.73 sq.m. Ages 30-39 = 107 mL/min/1.73 sq.m. Ages 40-49 = 99 mL/min/1.73 sq.m. Ages 50-59 = 93 mL/min/1.73 sq.m. Ages 60-69 = 85 mL/min/1.73 sq.m. Ages 70+ = 75 mL/min/1.73 sq.m. Chronic Kidney Disease: Less than 60 mL/min/1.73 square meters End Stage Renal Disease: Less than 15 mL/min/1.73 square meters Performed By: #### L IP, GFR, ANEU, ESR, YASMANY, ADIFF, CRP, CBC, CMP #### [address] [address] GFR >60 Normal [facility] ([place]) Comment on above: Result Comment: GFR Population mean for , Non- Americans Ages 20-29 = 116 mL/min/1.73 sq.m. Ages 30-39 = 107 mL/min/1.73 sq.m. Ages 40-49 = 99 mL/min/1.73 sq.m. Ages 50-59 = 93 mL/min/1.73 sq.m. Ages 60-69 = 85 mL/min/1.73 sq.m. Ages 70+ = 75 mL/min/1.73 sq.m. Chronic Kidney Disease: Less than 60 mL/min/1.73 square meters End Stage Renal Disease: Less than 15 mL/min/1.73 square meters Performed By: #### L IP, GFR, ANEU, ESR, YASMANY, ADIFF, CRP, CBC, CMP #### [address] [address] GFR Non- >60 Normal [facility] ([place] Comment on above: Result Comment: GFR Population mean for , Non- Americans Ages 20-29 = 116 mL/min/1.73 sq.m. Ages 30-39 = 107 mL/min/1.73 sq.m. Ages 40-49 = 99 mL/min/1.73 sq.m. Ages 50-59 = 93 mL/min/1.73 sq.m. Ages 60-69 = 85 mL/min/1.73 sq.m. Ages 70+ = 75 mL/min/1.73 sq.m. Chronic Kidney Disease: Less than 60 mL/min/1.73 square meters End Stage Renal Disease: Less than 15 mL/min/1.73 square meters Performed By: #### L IP, GFR, ANEU, ESR, YASMANY, ADIFF, CRP, CBC, CMP #### [address] [address] .NEUABSon 11-30-2023 Neutrophil, Absolute 7.9 10 3/mcL Normal 2.3-8.1 [facility] ([place] Comment on above: Performed By: #### L IP, GFR, ANEU, ESR, YASMANY, ADIFF, CRP, CBC, CMP #### [address] [address] BMPon 11-30-2023 BUN/Creatinine Ratio Unable to Calculate Normal 10.0-2 2.0 [facility] ([place] Comment on above: Result Comment: Unab le to calculate this test result accurately. Results used to calculate this test are outside the reportable range. Performed By: #### L IP, GFR, ANEU, ESR, YASMANY, ADIFF, CRP, CBC, CMP #### [address] [address] Urea nitrogen [Mass/Vol] mg/dL Low 8.0-22.0 [facility] ([place] Comment on above: Performed By: #### L IP, GFR, ANEU, ESR, YASMANY, ADIFF, CRP, CBC, CMP #### [address] [address] Calcium [Mass/Vol] 8.0 mg/dL Low 8.7-10.4 [facility] ([place] Comment on above: Performed By: #### L IP, GFR, ANEU, ESR, YASMANY, ADIFF, CRP, CBC, CMP #### [address] [address] Chloride [Moles/Vol] 102 mmol/L Normal 98-110 [facility] ([place] Comment on above: Performed By: #### L IP, GFR, ANEU, ESR, YASMANY, ADIFF, CRP, CBC, CMP #### [address] [address] CO2 [Moles/Vol] 24 mmol/L Normal 22-32 [facility] ([place]) Comment on above: Performed By: #### L IP, GFR, ANEU, ESR, YASMANY, ADIFF, CRP, CBC, CMP #### [address] [address] Creatinine [Mass/Vol] 0.43 mg/dL Low 0.50-1.20 [facility] ([place] Comment on above: Performed By: #### L IP, GFR, ANEU, ESR, YASMANY, ADIFF, CRP, CBC, CMP #### [address] [address] Electrolyte Balance 10.0 mEq/L Normal 4.0-15.0 [facility] ([place] Comment on above: Performed By: #### L IP, GFR, ANEU, ESR, YASMANY, ADIFF, CRP, CBC, CMP #### [address] [address] Glucose [Mass/Vol] 97 mg/dL Normal 70-110 [facility] ([place] Comment on above: Performed By: #### L IP, GFR, ANEU, ESR, YASMANY, ADIFF, CRP, CBC, CMP #### [address] [address] Potassium [Moles/Vol] 3.4 mmol/L Low 3.5-5.0 [facility] ([place] Comment on above: Performed By: #### L IP, GFR, ANEU, ESR, YASMANY, ADIFF, CRP, CBC, CMP #### [address] [address] Sodium [Moles/Vol] 136 mmol/L Normal 136-145 [facility] ([place] Comment on above: Performed By: #### L IP, GFR, ANEU, ESR, YASMANY, ADIFF, CRP, CBC, CMP #### [address] [address] CBCon 11-30-2023 Erythrocyte distribution width (RBC) [Ratio] 15.1 % Normal 11.5-15.5 [facility] ([place] Comment on above: Performed By: #### L IP, GFR, ANEU, ESR, YASMANY, ADIFF, CRP, CBC, CMP #### [place] [address] Hematocrit (Bld) [Volume fraction] 32.9 % Low 34.0-46.0 [facility] ([place] Comment on above: Performed By: #### L IP, GFR, ANEU, ESR, YASMANY, ADIFF, CRP, CBC, CMP #### [place] [address] Hgb 11.2 G/dL Low 12.0-16.0 [facility] ([place] Comment on above: Performed By: #### L IP, GFR, ANEU, ESR, YASMANY, ADIFF, CRP, CBC, CMP #### [place] [id number] MCH (RBC) [Entitic mass] 32.9 pg Normal 27.0-33.0 [facility] ([place] Comment on above: Performed By: #### L IP, GFR, ANEU, ESR, YASMANY, ADIFF, CRP, CBC, CMP #### [place] [address] MCHC 34.1 G/dL Normal 32.0-36.0 [facility] ([place] Comment on above: Performed By: #### L IP, GFR, ANEU, ESR, YASMANY, ADIFF, CRP, CBC, CMP #### [place] [id number] MCV (RBC) [Entitic vol] 96.6 fL Normal 80.0-99.0 A [facility] ([place] Comment on above: Performed By: #### L IP, GFR, ANEU, ESR, YASMANY, ADIFF, CRP, CBC, CMP #### [address] [address] Platelet 372 10 3/mcL Normal 150-450 [facility] ([place] Comment on above: Performed By: #### L IP, GFR, ANEU, ESR, YASMANY, ADIFF, CRP, CBC, CMP #### [address] [address] Platelet mean volume (Bld) [Entitic vol] 9.0 fL Normal 6.6-10.5 [facility] ([place] Comment on above: Performed By: #### L IP, GFR, ANEU, ESR, YASMANY, ADIFF, CRP, CBC, CMP #### [place] [address] RBC 3.40 10 6/mcL Low 4.10-5.30 [facility] ([place]) Comment on above: Performed By: #### L IP, GFR, ANEU, ESR, YASMANY, ADIFF, CRP, CBC, CMP #### [address] [address] WBC 10.8 10 3/mcL Normal 4.5-10.8 [facility] ([place] Comment on above: Performed By: #### L IP, GFR, ANEU, ESR, YASMANY, ADIFF, CRP, CBC, CMP #### [address] [address] CDIFPCRon 11-30-2023 Clostridium difficile PCR Negative Normal Negative [facility] ([place] Comment on above: Result Comment: Note s [id number] Performed By: #### L IP, GFR, ANEU, ESR, YASMANY, ADIFF, CRP, CBC, CMP #### [place] [address] Clostridium difficile PCR Int Normal [facility] ([place] Comment on above: Result Comment: No t cdB gene DNA detected. Negative test results may occur from improper collection, handling or storage of specimen, technical error, or extremely low levels of target below the limit of detection of the assay. See Below Performed By: #### L IP, GFR, ANEU, ESR, YASMANY, ADIFF, CRP, CBC, CMP #### [address] [address] CMPon 11-30-2023 BUN/Creatinine Ratio Unable to Calculate Normal 10.0-2 2.0 [facility] ([place] Comment on above: Result Comment: Unab le to calculate this test result accurately. Results used to calculate this test are outside the reportable range. Performed By: #### L IP, GFR, ANEU, ESR, YASMANY, ADIFF, CRP, CBC, CMP #### [address] [address] Urea nitrogen [Mass/Vol] mg/dL Low 8.0-22.0 [facility] ([place] Comment on above: Performed By: #### L IP, GFR, ANEU, ESR, YASMANY, ADIFF, CRP, CBC, CMP #### [address] [address] Albumin Level 1.8 G/dL Low 3.2-4.8 [facility]) Comment on above: Performed By: #### L IP, GFR, ANEU, ESR, YASMANY, ADIFF, CRP, CBC, CMP #### [address] [address] Albumin/Globulin [Mass ratio] 0.6 {ratio} Low 0.9-1.6 [facility] ([place] Comment on above: Performed By: #### L IP, GFR, ANEU, ESR, YASMANY, ADIFF, CRP, CBC, CMP #### [address] [address] ALP [Catalytic activity/Vol] 83 U/L Normal 38-126 [facility]) Comment on above: Performed By: #### L IP, GFR, ANEU, ESR, YASMANY, ADIFF, CRP, CBC, CMP #### [address] [address] ALT/SGPT <8 Low 10-49 [facility] ([place] Comment on above: Performed By: #### L IP, GFR, ANEU, ESR, YASMANY, ADIFF, CRP, CBC, CMP #### [address] [address] AST [Catalytic activity/Vol] 9 U/L Normal 8-34 [facility] ([place] Comment on above: Performed By: #### L IP, GFR, ANEU, ESR, YASMANY, ADIFF, CRP, CBC, CMP #### [address] [address] Bili Total 0.30 mg/dL Normal 0.20-1.20 [facility] ([place] Comment on above: Result Comment: Use of this assay is not recommended for patients undergoing treatment with eltrombopag due to the potential for falsely elevated results. Performed By: #### L IP, GFR, ANEU, ESR, YASMANY, ADIFF, CRP, CBC, CMP #### [address] [address] Calcium [Mass/Vol] 7.6 mg/dL Low 8.7-10.4 [facility] ([place] Comment on above: Performed By: #### L IP, GFR, ANEU, ESR, YASMANY, ADIFF, CRP, CBC, CMP #### [address] [address] Chloride [Moles/Vol] 104 mmol/L Normal 98-110 [facility] ([place] Comment on above: Performed By: #### L IP, GFR, ANEU, ESR, YASMANY, ADIFF, CRP, CBC, CMP #### [address] [address] CO2 [Moles/Vol] 19 mmol/L Low 22-32 [facility] ([place]) Comment on above: Performed By: #### L IP, GFR, ANEU, ESR, YASMANY, ADIFF, CRP, CBC, CMP #### [address] [address] Creatinine [Mass/Vol] 0.37 mg/dL Low 0.50-1.20 [facility] ([place] Comment on above: Performed By: #### L IP, GFR, ANEU, ESR, YASMANY, ADIFF, CRP, CBC, CMP #### [address] [address] Electrolyte Balance 12.0 mEq/L Normal 4.0-15.0 [facility] ([place] Comment on above: Performed By: #### L IP, GFR, ANEU, ESR, YASMANY, ADIFF, CRP, CBC, CMP #### [address] [address] Globulin 2.9 G/dL Normal 1.5-3.8 [facility] ([place] Comment on above: Performed By: #### L IP, GFR, ANEU, ESR, YASMANY, ADIFF, CRP, CBC, CMP #### [address] [address] Glucose [Mass/Vol] 96 mg/dL Normal 70-110 [facility] ([place] Comment on above: Performed By: #### L IP, GFR, ANEU, ESR, YASMANY, ADIFF, CRP, CBC, CMP #### [address] [address] Potassium [Moles/Vol] 2.8 mmol/L Low 3.5-5.0 [facility] ([place] Comment on above: Performed By: #### L IP, GFR, ANEU, ESR, YASMANY, ADIFF, CRP, CBC, CMP #### [address] [address] Sodium [Moles/Vol] 135 mmol/L Low 136-145 [facility] ([place] Comment on above: Performed By: #### L IP, GFR, ANEU, ESR, YASMANY, ADIFF, CRP, CBC, CMP #### [address] [address] Total Protein 4.7 G/dL Low 5.7-8.2 [facility] ([place]) Comment on above: Result Comment: No te - New Reference Range in effect 20 Performed By: #### L IP, GFR, ANEU, ESR, YASMANY, ADIFF, CRP, CBC, CMP #### [address] [address] LABORATORYOrdered By: SYSTEM SYSTEM on 11-30-2023 Calcium [Mass/Vol] 8.0 mg/dL Low 8.7 - 10. 4 mg/dL ADM SS Chloride [Moles/Vol] 102 mmol/L Normal 98 - 11 0 mEq/L ADM SS CO2 [Moles/Vol] 24 mmol/L Normal 22 - 32 mEq/L ADM SS Creatinine [Mass/Vol] 0.43 mg/dL Low 0.50 - 1.20 mg/dL ADM SS Electrolyte Balance 10.0 mEq/L Normal 4.0 - 15 .0 mEq/L ADM SS GFR/1.73 sq M.predicted among blacks MDRD (S/P/Bld) [Vol rate/Area] ml/min/1.73sqm Invalid Interpretation Code [facility] Chemistry S Comment on above: Interpretive Data: GFR Population mean for , Non- Americans Ages 20-29 = 116 mL/min/1.73 sq.m. Ages 30-39 = 107 mL/min/1.73 sq.m. Ages 40-49 = 99 mL/min/1.73 sq.m. Ages 50-59 = 93 mL/min/1.73 sq.m. Ages 60-69 = 85 mL/min/1.73 sq.m. Ages 70+ = 75 mL/min/1.73 sq.m. Chronic Kidney Disease: Less than 60 mL/min/1.73 square meters End Stage Renal Disease: Less than 15 mL/min/1.73 square meters GFR/1.73 sq M.predicted among non-blacks MDRD (S/P/Bld) [Vol rate/Area] ml/min/1.73sqm Invalid Interpretation Code [facility] Chemistry S Comment on above: Interpretive Data: GFR Population mean for , Non- Americans Ages 20-29 = 116 mL/min/1.73 sq.m. Ages 30-39 = 107 mL/min/1.73 sq.m. Ages 40-49 = 99 mL/min/1.73 sq.m. Ages 50-59 = 93 mL/min/1.73 sq.m. Ages 60-69 = 85 mL/min/1.73 sq.m. Ages 70+ = 75 mL/min/1.73 sq.m. Chronic Kidney Disease: Less than 60 mL/min/1.73 square meters End Stage Renal Disease: Less than 15 mL/min/1.73 square meters Glucose [Mass/Vol] 97 mg/dL Normal 70 - 110 mg/dL ADM SS Potassium [Moles/Vol] 3.4 mmol/L Low 3.5 - 5.0 mEq/L ADM SS Sodium [Moles/Vol] 136 mmol/L Normal 136 - 145 mEq/L ADM SS Albumin BCP dye [Mass/Vol] 1.8 G/dL Low 3.2 - 4.8 G/dL ADM SS Albumin/Globulin [Mass ratio] 0.6 {ratio} Low 0.9 - 1.6 ratio ADM SS ALP [Catalytic activity/Vol] 83 U/L Normal 38 - 126 U/L ADM SS ALT No additional P-5'-P [Catalytic activity/Vol] U/L 1 Low 10 - 49 U/L ADM SS AST [Catalytic activity/Vol] 9 U/L Normal 8 - 34 U/L ADM SS Basophils (Bld) [#/Vol] 0.0 103/mcL Normal 0.0 - 0.3 10^3/mcL Workflow SS Basophils/100 WBC (Bld) 0.2 % Normal 0.0 - 2.5 % Workflow SS Bilirubin [Mass/Vol] 0.30 mg/dL Normal 0.20 - 1.20 mg/dL ADM Comment on above: Interpretive Data: U se of this assay is not recommended for patients undergoing treatment with eltrombopag due to the potential for falsely elevated results. Eosinophils (Bld) [#/Vol] 0.3 103/mcL Normal 0.0 - 0.7 10^3/mcL Workflow SS Eosinophils/100 WBC (Bld) 2.4 % Normal 0.0 - 6.0 % Workflow SS Erythrocyte distribution width (RBC) [Ratio] 15.1 % Normal 11.5 - 15.5 % Workflow SS Globulin 2.9 G/dL Normal 1.5 - 3.8 G/dL ADM SS Hematocrit (Bld) [Volume fraction] 32.9 % Low 34.0 - 46.0 % Workflow SS Hemoglobin (Bld) [Mass/Vol] 11.2 G/dL Low 12.0 - 16.0 G/dL Workflow SS Lipase [Catalytic activity/Vol] 126 U/L High 12 - 53 U/L ADM SS Comment on above: Interpretive Data: * *Note - New Reference Range in effect 20 Lymphocytes (Bld) [#/Vol] 1.7 103/mcL Normal 0.9 - 4.3 10^3/mcL AH Workflow SS Lymphocytes/100 WBC (Bld) 16.1 % Low 20.0 - 40.0 % AH Workflow SS MCH (RBC) [Entitic mass] 32.9 pg Normal 27. 0 - 33.0 pg AH Workflow SS MCHC 34.1 G/dL Normal 32.0 - 36.0 G/dL AH Workflow SS MCV (RBC) [Entitic vol] 96.6 fL Normal 80.0 - 99.0 fL AH Workflow SS Monocytes (Bld) [#/Vol] 0.9 103/mcL Normal 0.1 - 1.4 10^3/mcL AH Workflow SS Monocytes/100 WBC (Bld) 8.5 % Normal 2.0 - 13.0 % AH Workflow SS Neutrophils (Bld) [#/Vol] 7.9 103/mcL Normal 2.3 - 8.1 10^3/mcL AH Workflow SS Neutrophils/100 WBC (Bld) 72.8 % Normal 50.0 - 75.0 % AH Workflow SS Platelet mean volume (Bld) [Entitic vol] 9.0 fL Normal 6.6 - 10.5 fL AH Workflow SS Platelets (Bld) [#/Vol] 372 103/mcL Normal 150 - 450 10^3/mcL AH Workflow SS Protein [Mass/Vol] 4.7 G/dL Low 5.7 - 8.2 G/dL [facility] Comment on above: Interpretive Data: * *Note - New Reference Range in effect 20 RBC (Bld) [#/Vol] 3.40 106/mcL Low 4.10 - 5.3 0 10^6/mcL Workflow SS WBC (Bld) [#/Vol] 10.8 103/mcL Normal 4.5 - 10.8 10^3/mcL Workflow SS LABORATORYOrdered By: Bernarda Rodriguez on 11-30-2023 Urea nitrogen [Mass/Vol] mg/dL Low 8.0 - 22.0 mg/dL Chemistry S Urea nitrogen/Creatinine [Mass ratio] Unable to Calculate Invalid Interpretation Code 10.0 - 22.0 Chemistry S Comment on above: Result Comment: Unab le to calculate this test result accurately. Results used to calculate this test are outside the reportable range. LABORATORYOrdered By: Deisy Duarte on 11-30-2023 Adenovirus 40+41 DNA ALVARADO+non-probe Ql (Stl) Not Detected *NA* (11/30/23 11:13 AM) Invalid Interpretation Code Not Detected AH Auto Microbiology GL SS Astrovirus subtypes 1-8 RNA ALVARADO+non-probe Ql (Stl) Not Detected *NA* (11/30/23 11:13 AM) Invalid Interpretation Code Not Detected AH Auto Microbiology GL SS C. cayetanensis DNA ALVARADO+non-probe Ql (Stl) Not Detected *NA* (11/30/23 11:13 AM) Invalid Interpretation Code Not Detected AH Auto Microbiology GL SS C. coli+jejuni+upsaliensis DNA ALVARADO+non-probe Ql (Stl) Not Detected *NA* (11/30/23 11:13 AM) Invalid Interpretation Code Not Detected [facility] GL SS Cryptosporidium sp DNA ALVARADO+non-probe Ql (Stl) Not Detected *NA* (11/30/23 11:13 AM) Invalid Interpretation Code Not Detected [facility] GL SS E. coli enteroaggregative Marce plasmid aggR+aatA genes ALVARADO+non-probe Ql (Stl) Not Detected *NA* (11/30/23 11:13 AM) Invalid Interpretation Code Not Detected [facility] GL SS E. coli enteropathogenic eae gene ALVARADO+non-probe Ql (Stl) Not Detected *NA* (11/30/23 11:13 AM) Invalid Interpretation Code Not Detected [facility] GL SS E. coli enterotoxigenic ltA+st1a+st1b genes ALVARADO+non-probe Ql (Stl) Not Detected *NA* (11/30/23 11:13 AM) Invalid Interpretation Code Not Detected [facility] GL SS E. coli O157 DNA ALVARADO+non-probe Ql (Stl) Not Applicable (11/30/23 11:13 AM) Normal Not Detected AH Auto Microbiology GL SS E. coli stx1+stx2 genes ALVARADO+non-probe Ql (Stl) Not Detected *NA* (11/30/23 11:13 AM) Invalid Interpretation Code Not Detected AH Auto Microbiology GL SS E. histolytica DNA ALVARADO+non-probe Ql (Stl) Not Detected *NA* (11/30/23 11:13 AM) Invalid Interpretation Code Not Detected AH Auto Microbiology GL SS G. lamblia DNA ALVARADO+non-probe Ql (Stl) Not Detected *NA* (11/30/23 11:13 AM) Invalid Interpretation Code Not Detected AH Auto Microbiology GL SS Norovirus genogroup I+II RNA ALVARADO+non-probe Ql (Stl) Not Detected *NA* (11/30/23 11:13 AM) Invalid Interpretation Code Not Detected AH Auto Microbiology GL SS Plesiomonas shigelloides Not Detected *NA* (11/30/23 11:13 AM) Invalid Interpretation Code Not Detected AH Auto Microbiology GL SS Rotavirus A RNA ALVARADO+non-probe Ql (Stl) Not Detected *NA* (11/30/23 11:13 AM) Invalid Interpretation Code Not Detected AH Auto Microbiology GL SS S. enterica+bongori DNA ALVARADO+non-probe Ql (Stl) Not Detected *NA* (11/30/23 11:13 AM) Invalid Interpretation Code Not Detected AH Auto Microbiology GL SS Sapovirus genogroups I+II+IV+V RNA ALVARADO+non-probe Ql (Stl) Not Detected *NA* (11/30/23 11:13 AM) Invalid Interpretation Code Not Detected AH Auto Microbiology GL SS Shigella species+EIEC invasion plasmid antigen H ipaH gene ALVARADO+non-probe Ql (Stl) Not Detected *NA* (11/30/23 11:13 AM) Invalid Interpretation Code Not Detected AH Auto Microbiology GL SS Stool GI Comment See Comment 2 (11/30/23 11:13 AM) Normal AH Auto Microbiology GL SS Comment on above: Interpretive Data: V irus, bacteria, and parasite nucleic acid may persist in vivo independently of organism viability. Negative Film Array GI panel results in the setting of clinical illness compatible with gastroenteritis may be due to infection by pathogens that are not detected by this test. False negatives may occur due to genetic variability in the region targeted by the primers. V. cholerae DNA ALVARADO+non-probe Ql (Stl) Not Detected *NA* (11/30/23 11:13 AM) Invalid Interpretation Code Not Detected AH Auto Microbiology GL SS V. cholerae+parahaemolyticu s+vulnificus DNA ALVARADO+non-probe Ql (Stl) Not Detected *NA* (11/30/23 11:13 AM) Invalid Interpretation Code Not Detected Auto Microbiology GL SS Y. enterocolitica DNA ALVARADO+non-probe Ql (Stl) Not Detected *NA* (11/30/23 11:13 AM) Invalid Interpretation Code Not Detected Auto Microbiology GL SS LABORATORYOrdered By: Dayna Hernandez on 11-30-2023 Clostridium difficile PCR Negative 1 (11/30/23 11:13 AM) Normal Negative Auto Viro/Sero SS Comment on above: Result Comment: Note s Clostridium difficile PCR Int No tcdB gene DNA detected. Negative test results may occur from improper collection, handling or storage of specimen, technical error, or extremely low levels of target below the limit of detection of the assay. Invalid Interpretation Code Auto Viro/Sero SS LIPon 11-30-2023 Lipase Level 126 U/L High 12-53 [facility] ([place] Comment on above: Result Comment: No te - New Reference Range in effect 20 Performed By: #### L IP, GFR, ANEU, ESR, YASMANY, ADIFF, CRP, CBC, CMP #### [address] [address] STGIPCRon 11-30-2023 Adenovirus F 40/41 Not detected Normal Not Detected [facility] ([place] Comment on above: Performed By: #### L IP, GFR, ANEU, ESR, YASMANY, ADIFF, CRP, CBC, CMP #### [address] [address] Astrovirus Not detected Normal Not Detected [facility] ([place] Comment on above: Performed By: #### L IP, GFR, ANEU, ESR, YASMANY, ADIFF, CRP, CBC, CMP #### [address] [address] Campy (jejuni/coli/ups) Not detected Normal Not Detected [facility] ([place] Comment on above: Performed By: #### L IP, GFR, ANEU, ESR, YASMANY, ADIFF, CRP, CBC, CMP #### [address] [address] Cryptosporidium Not detected Normal Not Detected [facility] ([place] Comment on above: Performed By: #### L IP, GFR, ANEU, ESR, YASMANY, ADIFF, CRP, CBC, CMP #### [place] [address] Cyclospora Not detected Normal Not Detected [facility] ([place] Comment on above: Performed By: #### L IP, GFR, ANEU, ESR, YASMANY, ADIFF, CRP, CBC, CMP #### [place] [address] E. coli (ETEC) Not detected Normal Not Detected [facility] ([place] Comment on above: Performed By: #### L IP, GFR, ANEU, ESR, YASMANY, ADIFF, CRP, CBC, CMP #### [place] [address] E. coli O157 Not Applicable Normal Not Detected [facility] ([place] Comment on above: Performed By: #### L IP, GFR, ANEU, ESR, YASMANY, ADIFF, CRP, CBC, CMP #### [place] [address] Entamoeba histolytica Not detected Normal Not Detected [facility] ([place] Comment on above: Performed By: #### L IP, GFR, ANEU, ESR, YASMANY, ADIFF, CRP, CBC, CMP #### [place] [address] Enteroaggregative E. coli (EAEC) Not detected Normal Not Detected [facility] ([place] Comment on above: Performed By: #### L IP, GFR, ANEU, ESR, YASMANY, ADIFF, CRP, CBC, CMP #### [place] [address] Enteropathogenic E. coli (EPEC) Not detected Normal Not Detected [facility] ([place] Comment on above: Performed By: #### L IP, GFR, ANEU, ESR, YASMANY, ADIFF, CRP, CBC, CMP #### [place] [address] Giardia lamblia Not detected Normal Not Detected [facility] ([place] Comment on above: Performed By: #### L IP, GFR, ANEU, ESR, YASMANY, ADIFF, CRP, CBC, CMP #### [place] [address] Norovirus GI/GII Not detected Normal Not Detected [facility] ([place] Comment on above: Performed By: #### L IP, GFR, ANEU, ESR, YASMANY, ADIFF, CRP, CBC, CMP #### [place] [address] Plesiomonas shigelloides Not detected Normal Not Detected [facility] ([place] Comment on above: Performed By: #### L IP, GFR, ANEU, ESR, YASMANY, ADIFF, CRP, CBC, CMP #### [place] [address] Rotavirus A Not detected Normal Not Detected [facility] ([place] Comment on above: Performed By: #### L IP, GFR, ANEU, ESR, YASMANY, ADIFF, CRP, CBC, CMP #### [place] [address] Salmonella species, stool Not detected Normal Not Detected [facility] ([place] Comment on above: Performed By: #### L IP, GFR, ANEU, ESR, YASMANY, ADIFF, CRP, CBC, CMP #### [place] [address] Sapovirus I,II,IV,V Not detected Normal Not Detected [facility] ([place] Comment on above: Performed By: #### L IP, GFR, ANEU, ESR, YASMANY, ADIFF, CRP, CBC, CMP #### [place] [address] Shig Tox E. coli (STEC) Not detected Normal Not Detected [facility] ([place] Comment on above: Performed By: #### L IP, GFR, ANEU, ESR, YASMANY, ADIFF, CRP, CBC, CMP #### [place] [address] Shigella/Enteroinvasive E. coli (EIEC) Not detected Normal Not Detected [facility] ([place] Comment on above: Performed By: #### L IP, GFR, ANEU, ESR, YASMANY, ADIFF, CRP, CBC, CMP #### [place] [address] Stool GI Comment See Comment Normal [facility] ([place] Comment on above: Result Comment: Viru s, bacteria, and parasite nucleic acid may persist in vivo independently of organism viability. Negative Film Array GI panel results in the setting of clinical illness compatible with gastroenteritis may be due to infection by pathogens that are not detected by this test. False negatives may occur due to genetic variability in the region targeted by the primers. Performed By: #### L IP, GFR, ANEU, ESR, YASMANY, ADIFF, CRP, CBC, CMP #### [place] [address] Vibrio cholerae Not detected Normal Not Detected [facility] ([place] Comment on above: Performed By: #### L IP, GFR, ANEU, ESR, YASMANY, ADIFF, CRP, CBC, CMP #### [place] [address] Vibrio par/vul/chol Not detected Normal Not Detected [facility] ([place] Comment on above: Performed By: #### L IP, GFR, ANEU, ESR, YASMANY, ADIFF, CRP, CBC, CMP #### [place] [address] Yersinia enterocolitica Not detected Normal Not Detected [facility] ([place] Comment on above: Performed By: #### L IP, GFR, ANEU, ESR, YASMANY, ADIFF, CRP, CBC, CMP #### [place] [address] XR CHEST 1 VIEWon 11-30-2023 XR CHEST 1 VIEW ORIGINAL EXAMINATION: ONE XRAY VIEW OF THE CHEST 11/30/2023 2:34 pm COMPARISON: Prior chest x-ray dated 11/28/2023. HISTORY: ORDERING SYSTEM PROVIDED HISTORY: Reason for Exam: Pleural effusion FINDINGS: The cardiomediastinal silhouette demonstrates a normal appearance. No consolidative opacity is identified. There is no pleural effusion or pneumothorax. No free air seen beneath the level of the diaphragm. The bony thorax appears acutely intact. IMPRESSION: No evidence of an acute process. No sizable pleural effusion is seen. Interpreted by: Ghanshyam Lazcano MD Preliminary Report By: Ghanshyam Lazcano MD Electronically signed By Ghanshyam Lazcano MD Dictated Date: 11/30/2023 3:55:01 PM Prelim Date: 11/30/2023 3:55:43 PM Sign Date: 11/30/2023 3:55:43 PM Ordering Provider: JUICE Raaz [facility] ([place]) HFPon 11-29-2023 Bili Indirect 0.1 mg/dL Normal 0.1-10.0 [facility]) Comment on above: Performed By: #### L IP, GFR, ANEU, ESR, YASMANY, ADIFF, CRP, CBC, CMP #### [address] [address] Albumin Level 1.9 G/dL Low 3.2-4.8 [facility]) Comment on above: Performed By: #### L IP, GFR, ANEU, ESR, YASMANY, ADIFF, CRP, CBC, CMP #### [address] [address] Albumin/Globulin [Mass ratio] 0.6 {ratio} Low 0.9-1.6 [facility]) Comment on above: Performed By: #### L IP, GFR, ANEU, ESR, YASMANY, ADIFF, CRP, CBC, CMP #### [address] [address] ALP [Catalytic activity/Vol] 85 U/L Normal 38-126 [facility]) Comment on above: Performed By: #### L IP, GFR, ANEU, ESR, YASMANY, ADIFF, CRP, CBC, CMP #### [address] [address] ALT/SGPT <8 Low 10-49 [facility]) Comment on above: Performed By: #### L IP, GFR, ANEU, ESR, YASMANY, ADIFF, CRP, CBC, CMP #### [address] [address] AST [Catalytic activity/Vol] 9 U/L Normal 8-34 [facility] ([place] Comment on above: Performed By: #### L IP, GFR, ANEU, ESR, YASMANY, ADIFF, CRP, CBC, CMP #### [address] [address] Bili Direct 0.2 mg/dL Normal 0.0-0.4 [facility] [place] Comment on above: Result Comment: Use of this assay is not recommended for patients undergoing treatment with eltrombopag due to the potential for falsely elevated results. Performed By: #### L IP, GFR, ANEU, ESR, YASMANY, ADIFF, CRP, CBC, CMP #### [place] [address] Bili Total 0.30 mg/dL Normal 0.20-1.20 [facility] ([place] Comment on above: Result Comment: Use of this assay is not recommended for patients undergoing treatment with eltrombopag due to the potential for falsely elevated results. Performed By: #### L IP, GFR, ANEU, ESR, YASMANY, ADIFF, CRP, CBC, CMP #### [address] [address] Globulin 3.1 G/dL Normal 1.5-3.8 [facility] ([place] Comment on above: Performed By: #### L IP, GFR, ANEU, ESR, YASMANY, ADIFF, CRP, CBC, CMP #### [address] [address] Total Protein 5.0 G/dL Low 5.7-8.2 [facility] ([place]) Comment on above: Result Comment: No te - New Reference Range in effect 20 Performed By: #### L IP, GFR, ANEU, ESR, YASMANY, ADIFF, CRP, CBC, CMP #### [address] [address] LABORATORYOrdered By: SYSTEM SYSTEM on 11-29-2023 Bili Indirect 0.1 mg/dL Normal 0.1 - 10.0 mg/dL AH Chemistry S Bilirubin.conjugated [Mass/Vol] 0.2 mg/dL Normal 0.0 - 0.4 mg/dL ADM SS Comment on above: Interpretive Data: U se of this assay is not recommended for patients undergoing treatment with eltrombopag due to the potential for falsely elevated results. LABORATORYOrdered By: Arielle Cuellar on 11-29-2023 Cholesterol [Mass/Vol] 89 mg/dL Normal 50 - 199 mg/dL [facility] Comment on above: Interpretive Data: C holesterol Reference Interval: Less than 200 Desirable 200-239 Borderline high risk 240 and above High risk Cholesterol in HDL [Mass/Vol] 16 mg/dL Low 40 - 59 mg/dL ADM SS Cholesterol in LDL [Mass/Vol] 45 mg/dL Normal 0 - 129 mg/dL ADM SS Triglyceride [Mass/Vol] 141 mg/dL Normal 3 - 149 mg/dL [facility] LIPIDon 11-29-2023 Cholesterol [Mass/Vol] 89 mg/dL Normal 50-199 [facility] ([place]) Comment on above: Result Comment: Chol esterol Reference Interval: Less than 200 Desirable 200-239 Borderline high risk 240 and above High risk Performed By: #### L IP, GFR, ANEU, ESR, YASMANY, ADIFF, CRP, CBC, CMP #### [address] [address] Cholesterol in HDL [Mass/Vol] 16 mg/dL Low 40-59 [facility] ([place] Comment on above: Performed By: #### L IP, GFR, ANEU, ESR, YASMANY, ADIFF, CRP, CBC, CMP #### [address] [address] Cholesterol in LDL [Mass/Vol] 45 mg/dL Normal 0-129 [facility] ([place] Comment on above: Performed By: #### L IP, GFR, ANEU, ESR, YASMANY, ADIFF, CRP, CBC, CMP #### [address] [address] Triglyceride [Mass/Vol] 141 mg/dL Normal 3-149 A [facility] ([place] Comment on above: Performed By: #### L IP, GFR, ANEU, ESR, YASMANY, ADIFF, CRP, CBC, CMP #### [place] [id number] [place], [place] [address] US ABDOMEN COMPLETEon 2023 US ABDOMEN COMPLETE ORIGINAL EXAMINATION: COMPLETE ABDOMINAL ULTRASOUND11/29/2023 8:12 am ULTRASOUND ABDOMEN COMPLETE, COMPARISON: CT 11/23/2023 HISTORY: ORDERING SYSTEM PROVIDED HISTORY: Reason for Exam: Abdominal Pain, recent pancreatitis FINDINGS: The liver is coarsened with diffusely increased echogenicity. There is masking of the portal triads and the diaphragm. No focal lesion is seen.. There is no intrahepatic bile duct dilatation. The common duct is 2.3 mm at the elsa hepatis. The gallbladder is not visualized surgically absent by given history.. The pancreas is almost completely obscured by bowel gas artifacts.. The spleen is normal in size and echogenicity. There is a trace amount of ascites around the dome of the liver. No fluid in the Freed's pouch or remainder of the upper abdomen. There is likely small left pleural effusion. Limited survey images of the kidneys show normal cortical thickness and echogenicity. No pelvocaliectasis. . The aorta and IVC are also partly obscured by bowel gas artifacts and poorly evaluated.. IMPRESSION: Steatosis or other diffuse hepatocellular disease. Trace perihepatic ascites. Likely small left pleural effusion. Interpreted by: Abdirahman Sexton MD Preliminary Report By: Abdirahman Sexton MD Electronically signed By Abdirahman Sexton MD Dictated Date: 11/29/2023 10:18:41 AM Prelim Date: 11/29/2023 10:27:40 AM Sign Date: 11/29/2023 10:27:40 AM Ordering Provider: COMPA Raza [facility] ([place]) .Auto Diffon 11-28-2023 Basophil, Absolute 0.0 10 3/mcL Normal 0.0-0.2 [facility] ([place]) Comment on above: Performed By: #### L IP, GFR, ANEU, ESR, YASMANY, ADIFF, CRP, CBC, CMP #### [address] [id number] [place], [place] [address] Basophils/100 WBC (Bld) 0.3 % Normal 0.0-2.5 A [facility] ([place] Comment on above: Performed By: #### L IP, GFR, ANEU, ESR, YASMANY, ADIFF, CRP, CBC, CMP #### [address] [address] Eosinophil, Absolute 0.2 10 3/mcL Normal 0.0-0.4 [facility] ([place] Comment on above: Performed By: #### L IP, GFR, ANEU, ESR, YASMANY, ADIFF, CRP, CBC, CMP #### [address] [address] Eosinophils/100 WBC (Bld) 2.5 % Normal 0.0-7.0 [facility] ([place] Comment on above: Performed By: #### L IP, GFR, ANEU, ESR, YASMANY, ADIFF, CRP, CBC, CMP #### [address] [address] Lymphocyte, Absolute 1.0 10 3/mcL Normal 0.8-3.9 [facility] ([place] Comment on above: Performed By: #### L IP, GFR, ANEU, ESR, YASMANY, ADIFF, CRP, CBC, CMP #### [address] [address] Lymphocytes/100 WBC (Bld) 11.4 % Normal 10.0-50.0 [facility] ([place] Comment on above: Performed By: #### L IP, GFR, ANEU, ESR, YASMANY, ADIFF, CRP, CBC, CMP #### [address] [address] Monocyte, Absolute 0.9 10 3/mcL Normal 0.2-1.0 [facility] ([place] Comment on above: Performed By: #### L IP, GFR, ANEU, ESR, YASMANY, ADIFF, CRP, CBC, CMP #### [address] [address] Monocytes/100 WBC (Bld) 10.6 % Normal 1.7-13.0 [facility] ([place] Comment on above: Performed By: #### L IP, GFR, ANEU, ESR, YASMANY, ADIFF, CRP, CBC, CMP #### [address] [address] Neutrophils/100 WBC (Bld) 75.2 % Normal 37.0-80.0 [facility] ([place] Comment on above: Performed By: #### L IP, GFR, ANEU, ESR, YASMANY, ADIFF, CRP, CBC, CMP #### [address] [address] .GFRon 11-28-2023 GFR 166 ml/min/1.73sqm Normal [facility] ([place] Comment on above: Result Comment: GFR Population mean for , Non- Americans Ages 20-29 = 116 mL/min/1.73 sq.m. Ages 30-39 = 107 mL/min/1.73 sq.m. Ages 40-49 = 99 mL/min/1.73 sq.m. Ages 50-59 = 93 mL/min/1.73 sq.m. Ages 60-69 = 85 mL/min/1.73 sq.m. Ages 70+ = 75 mL/min/1.73 sq.m. Chronic Kidney Disease: Less than 60 mL/min/1.73 square meters End Stage Renal Disease: Less than 15 mL/min/1.73 square meters Performed By: #### L IP, GFR, ANEU, ESR, YASMANY, ADIFF, CRP, CBC, CMP #### [address] [address] GFR Non- 137 ml/min/1.73sqm Normal [facility] ([place] Comment on above: Result Comment: GFR Population mean for , Non- Americans Ages 20-29 = 116 mL/min/1.73 sq.m. Ages 30-39 = 107 mL/min/1.73 sq.m. Ages 40-49 = 99 mL/min/1.73 sq.m. Ages 50-59 = 93 mL/min/1.73 sq.m. Ages 60-69 = 85 mL/min/1.73 sq.m. Ages 70+ = 75 mL/min/1.73 sq.m. Chronic Kidney Disease: Less than 60 mL/min/1.73 square meters End Stage Renal Disease: Less than 15 mL/min/1.73 square meters Performed By: #### L IP, GFR, ANEU, ESR, YASMANY, ADIFF, CRP, CBC, CMP #### [address] [address] .NEUABSon 11-28-2023 Neutrophil, Absolute 6.5 10 3/mcL High 2.9-6.2 [facility] ([place] Comment on above: Performed By: #### L IP, GFR, ANEU, ESR, YASMANY, ADIFF, CRP, CBC, CMP #### [address] [address] BMPon 11-28-2023 BUN/Creatinine Ratio 13 ratio Normal 7-27 [facility] ([place] Comment on above: Performed By: #### L IP, GFR, ANEU, ESR, YASMANY, ADIFF, CRP, CBC, CMP #### [address] [address] Calcium [Mass/Vol] 7.7 mg/dL Low 8.4-10.2 [facility] ([place]) Comment on above: Performed By: #### L IP, GFR, ANEU, ESR, YASMANY, ADIFF, CRP, CBC, CMP #### [address] [address] Chloride [Moles/Vol] 105 mmol/L Normal 98-107 [facility] ([place] Comment on above: Performed By: #### L IP, GFR, ANEU, ESR, YASMANY, ADIFF, CRP, CBC, CMP #### [address] [address] CO2 [Moles/Vol] 19 mmol/L Low 22-29 [facility] ([place]) Comment on above: Performed By: #### L IP, GFR, ANEU, ESR, YASMANY, ADIFF, CRP, CBC, CMP #### [address] [address] Creatinine [Mass/Vol] 0.52 mg/dL Low 0.55-1.02 [facility] ([place] Comment on above: Performed By: #### L IP, GFR, ANEU, ESR, YASMANY, ADIFF, CRP, CBC, CMP #### [address] [place] [address] Electrolyte Balance 17.0 mEq/L High 4.0-15.0 [facility] ([place] Comment on above: Performed By: #### L IP, GFR, ANEU, ESR, YASMANY, ADIFF, CRP, CBC, CMP #### [address] [address] Glucose [Mass/Vol] 79 mg/dL Normal 70-105 [facility] ([place] Comment on above: Performed By: #### L IP, GFR, ANEU, ESR, YASMANY, ADIFF, CRP, CBC, CMP #### [address] [address] Potassium [Moles/Vol] 3.2 mmol/L Low 3.5-5.1 [facility] ([place] Comment on above: Performed By: #### L IP, GFR, ANEU, ESR, YASMANY, ADIFF, CRP, CBC, CMP #### [address] [address] Sodium [Moles/Vol] 141 mmol/L Normal 136-145 [facility] ([place] Comment on above: Performed By: #### L IP, GFR, ANEU, ESR, YASMANY, ADIFF, CRP, CBC, CMP #### [address] [address] Urea nitrogen [Mass/Vol] 7 mg/dL Normal 7-18 [facility] ([place] Comment on above: Performed By: #### L IP, GFR, ANEU, ESR, YASMANY, ADIFF, CRP, CBC, CMP #### [address] [address] CBCon 11-28-2023 Erythrocyte distribution width (RBC) [Ratio] 15.3 % High 11.5-14.5 [facility] ([place] Comment on above: Performed By: #### L IP, GFR, ANEU, ESR, YASMANY, ADIFF, CRP, CBC, CMP #### [address] [address] Hematocrit (Bld) [Volume fraction] 33.2 % Low 37.0-47.0 [facility] ([place] Comment on above: Performed By: #### L IP, GFR, ANEU, ESR, YASMANY, ADIFF, CRP, CBC, CMP #### [place] [id number] Hgb 11.8 G/dL Low 12.0-16.0 [facility] ([place] Comment on above: Performed By: #### L IP, GFR, ANEU, ESR, YASMANY, ADIFF, CRP, CBC, CMP #### [place] [address] MCH (RBC) [Entitic mass] 34.0 pg High 27.0-31.2 [facility] ([place] Comment on above: Performed By: #### L IP, GFR, ANEU, ESR, YASMANY, ADIFF, CRP, CBC, CMP #### [place] [address] MCHC 35.6 G/dL Normal 33.0-37.0 [facility] ([place] Comment on above: Performed By: #### L IP, GFR, ANEU, ESR, YASMANY, ADIFF, CRP, CBC, CMP #### [place] [address] MCV (RBC) [Entitic vol] 95.3 fL High 80.0-94.0 A [facility] ([place] Comment on above: Performed By: #### L IP, GFR, ANEU, ESR, YASMANY, ADIFF, CRP, CBC, CMP #### [place] [address] Platelet 321 10 3/mcL Normal 130-400 [facility] ([place] Comment on above: Performed By: #### L IP, GFR, ANEU, ESR, YASMANY, ADIFF, CRP, CBC, CMP #### [place] [address] Platelet mean volume (Bld) [Entitic vol] 9.2 fL Normal 7.4-10.4 [facility] ([place] Comment on above: Performed By: #### L IP, GFR, ANEU, ESR, YASMANY, ADIFF, CRP, CBC, CMP #### [place] [id number] [place], [place] [address] RBC 3.48 10 6/mcL Low 4.20-5.40 [facility] ([place] Comment on above: Performed By: #### L IP, GFR, ANEU, ESR, YASMANY, ADIFF, CRP, CBC, CMP #### [place] [address] [place], [place] [address] WBC 8.6 10 3/mcL Normal 4.6-10.8 [facility] ([place] Comment on above: Performed By: #### L IP, GFR, ANEU, ESR, YASMANY, ADIFF, CRP, CBC, CMP #### [place] [address] [place], [place] [address] LABORATORYOrdered By: SYSTEM SYSTEM on 11-28-2023 Basophil, Absolute 0.0 103/mcL Normal 0.0 - 0.2 10^3/mcL AO Workflow SS Basophils/100 WBC (Bld) 0.3 % Normal 0.0 - 2.5 % AO Workflow SS Calcium [Mass/Vol] 7.7 mg/dL Low 8.4 - 10. 2 mg/dL AO ADM SS Chloride [Moles/Vol] 105 mmol/L Normal 98 - 10 7 mmol/L AO ADM SS CO2 [Moles/Vol] 19 mmol/L Low 22 - 29 mmol/L AO ADM SS Creatinine [Mass/Vol] 0.52 mg/dL Low 0.55 - 1.02 mg/dL AO ADM SS Electrolyte Balance 17.0 mEq/L High 4.0 - 15 .0 mEq/L AO ADM SS Eosinophil, Absolute 0.2 103/mcL Normal 0.0 - 0 .4 10^3/mcL AO Workflow SS Eosinophils/100 WBC (Bld) 2.5 % Normal 0.0 - 7.0 % AO Workflow SS Erythrocyte distribution width (RBC) [Ratio] 15.3 % High 11.5 - 14.5 % AO Workflow SS GFR/1.73 sq M.predicted among blacks MDRD (S/P/Bld) [Vol rate/Area] 166 ml/min/1.73sqm Invalid Interpretation Code AO Chemistry S Comment on above: Interpretive Data: GFR Population mean for , Non- Americans Ages 20-29 = 116 mL/min/1.73 sq.m. Ages 30-39 = 107 mL/min/1.73 sq.m. Ages 40-49 = 99 mL/min/1.73 sq.m. Ages 50-59 = 93 mL/min/1.73 sq.m. Ages 60-69 = 85 mL/min/1.73 sq.m. Ages 70+ = 75 mL/min/1.73 sq.m. Chronic Kidney Disease: Less than 60 mL/min/1.73 square meters End Stage Renal Disease: Less than 15 mL/min/1.73 square meters GFR/1.73 sq M.predicted among non-blacks MDRD (S/P/Bld) [Vol rate/Area] 137 ml/min/1.73sqm Invalid Interpretation Code AO Chemistry S Comment on above: Interpretive Data: GFR Population mean for , Non- Americans Ages 20-29 = 116 mL/min/1.73 sq.m. Ages 30-39 = 107 mL/min/1.73 sq.m. Ages 40-49 = 99 mL/min/1.73 sq.m. Ages 50-59 = 93 mL/min/1.73 sq.m. Ages 60-69 = 85 mL/min/1.73 sq.m. Ages 70+ = 75 mL/min/1.73 sq.m. Chronic Kidney Disease: Less than 60 mL/min/1.73 square meters End Stage Renal Disease: Less than 15 mL/min/1.73 square meters Glucose [Mass/Vol] 79 mg/dL Normal 70 - 105 mg/dL AO ADM SS Hematocrit (Bld) [Volume fraction] 33.2 % Low 37.0 - 47.0 % AO Workflow SS Hemoglobin (Bld) [Mass/Vol] 11.8 G/dL Low 12.0 - 16.0 G/dL AO Workflow SS Lymphocyte, Absolute 1.0 103/mcL Normal 0.8 - 3 .9 10^3/mcL AO Workflow SS Lymphocytes/100 WBC (Bld) 11.4 % Normal 10.0 - 50.0 % AO Workflow SS Magnesium [Mass/Vol] 1.7 mg/dL Low 1.8 - 2 .4 mg/dL AO ADM SS MCH (RBC) [Entitic mass] 34.0 pg High 27. 0 - 31.2 pg AO Workflow SS MCHC 35.6 G/dL Normal 33.0 - 37.0 G/dL AO Workflow SS MCV (RBC) [Entitic vol] 95.3 fL High 80.0 - 94.0 fL AO Workflow SS Monocyte, Absolute 0.9 103/mcL Normal 0.2 - 1.0 10^3/mcL AO Workflow SS Monocytes/100 WBC (Bld) 10.6 % Normal 1.7 - 13.0 % AO Workflow SS Neutrophil, Absolute 6.5 103/mcL High 2.9 - 6 .2 10^3/mcL AO Workflow SS Neutrophils/100 WBC (Bld) 75.2 % Normal 37.0 - 80.0 % AO Workflow SS Platelet mean volume (Bld) [Entitic vol] 9.2 fL Normal 7.4 - 10.4 fL AO Workflow SS Platelets (Bld) [#/Vol] 321 103/mcL Normal 130 - 400 10^3/mcL AO Workflow SS Potassium [Moles/Vol] 3.2 mmol/L Low 3.5 - 5.1 mmol/L AO ADM SS RBC (Bld) [#/Vol] 3.48 106/mcL Low 4.20 - 5.4 0 10^6/mcL AO Workflow SS Sodium [Moles/Vol] 141 mmol/L Normal 136 - 145 mmol/L AO ADM SS Urea nitrogen [Mass/Vol] 7 mg/dL Normal 7 - 18 mg/dL AO ADM SS Urea nitrogen/Creatinine [Mass ratio] 13 ratio Normal 7 - 27 ratio AO ADM SS WBC (Bld) [#/Vol] 8.6 103/mcL Normal 4.6 - 10.8 10^3/mcL AO Workflow SS MGon 11-28-2023 Magnesium [Mass/Vol] 1.7 mg/dL Low 1.8-2.4 [facility] ([place] Comment on above: Performed By: #### L IP, GFR, ANEU, ESR, YASMANY, ADIFF, CRP, CBC, CMP #### [place] [address] [address] XR ABDOMEN APon 11-28-2023 XR ABDOMEN AP ORIGINAL EXAMINATION: ONE SUPINE XRAY VIEW(S) OF THE ABDOMEN 11/28/2023 6:30 am COMPARISON: Abdomen x-ray and CT abdomen and pelvis on 11/27/2023 HISTORY: ORDERING SYSTEM PROVIDED HISTORY: Reason for Exam: SBO vs ileus FINDINGS: Nasogastric tube tip and side port are in the stomach. There are multiple dilated loops of small intestine without evidence of small intestinal wall thickening. The colon is not dilated and does not appear edematous. There is no sign of free intraperitoneal air or pneumatosis. No pathologic calcifications are detected. IMPRESSION: 1. Nasogastric tube is in satisfactory position. 2. Persistent small bowel dilatation, with pattern most consistent with small bowel obstruction. Interpreted by: David Kaplan MD Preliminary Report By: David Kaplan MD Electronically signed By David Kaplan MD Dictated Date: 11/28/2023 6:38:06 AM Prelim Date: 11/28/2023 6:39:49 AM Sign Date: 11/28/2023 6:39:49 AM Ordering Provider: PEE Raza [facility] ([place] XR CHEST 1 VIEWon 11-28-2023 XR CHEST 1 VIEW ORIGINAL EXAMINATION: ONE XRAY VIEW OF THE CHEST 11/28/2023 6:29 am COMPARISON: Chest x-ray on 07/20/2022. CT abdomen and pelvis on 11/27/2023. HISTORY: ORDERING SYSTEM PROVIDED HISTORY: Reason for Exam: pleural effusion f/u FINDINGS: Enteric tube tip and side port are in the stomach. Moderate-sized bilateral pleural effusions are present with adjacent basilar lung consolidation. There is mild degree of central vascular congestion. No pneumothorax is present. The heart size is normal. There is no acute skeletal abnormality. IMPRESSION: Moderate bilateral pleural effusions with adjacent basilar lung consolidation that may be atelectasis or pneumonia. Interpreted by: David Kaplan MD Preliminary Report By: David Kaplan MD Electronically signed By David Kaplan MD Dictated Date: 11/28/2023 6:36:13 AM Prelim Date: 11/28/2023 6:37:56 AM Sign Date: 11/28/2023 6:37:56 AM Ordering Provider: PEE BUENROSTRO [facility] ([place]) .GFRon 11-27-2023 GFR 152 ml/min/1.73sqm [facility] ([place]) Comment on above: Result Comment: GFR Population mean for , Non- Americans Ages 20-29 = 116 mL/min/1.73 sq.m. Ages 30-39 = 107 mL/min/1.73 sq.m. Ages 40-49 = 99 mL/min/1.73 sq.m. Ages 50-59 = 93 mL/min/1.73 sq.m. Ages 60-69 = 85 mL/min/1.73 sq.m. Ages 70+ = 75 mL/min/1.73 sq.m. Chronic Kidney Disease: Less than 60 mL/min/1.73 square meters End Stage Renal Disease: Less than 15 mL/min/1.73 square meters Performed By: #### L IP, GFR, ANEU, ESR, YASMANY, ADIFF, CRP, CBC, CMP #### [address] [address] GFR Non- 125 ml/min/1.73sqm Normal [facility] ([place]) Comment on above: Result Comment: GFR Population mean for , Non- Americans Ages 20-29 = 116 mL/min/1.73 sq.m. Ages 30-39 = 107 mL/min/1.73 sq.m. Ages 40-49 = 99 mL/min/1.73 sq.m. Ages 50-59 = 93 mL/min/1.73 sq.m. Ages 60-69 = 85 mL/min/1.73 sq.m. Ages 70+ = 75 mL/min/1.73 sq.m. Chronic Kidney Disease: Less than 60 mL/min/1.73 square meters End Stage Renal Disease: Less than 15 mL/min/1.73 square meters Performed By: #### L IP, GFR, ANEU, ESR, YASMANY, ADIFF, CRP, CBC, CMP #### [address] [address] GFR Non- 99 ml/min/1.73sqm Normal [facility] ([place] Comment on above: Result Comment: GFR Population mean for , Non- Americans Ages 20-29 = 116 mL/min/1.73 sq.m. Ages 30-39 = 107 mL/min/1.73 sq.m. Ages 40-49 = 99 mL/min/1.73 sq.m. Ages 50-59 = 93 mL/min/1.73 sq.m. Ages 60-69 = 85 mL/min/1.73 sq.m. Ages 70+ = 75 mL/min/1.73 sq.m. Chronic Kidney Disease: Less than 60 mL/min/1.73 square meters End Stage Renal Disease: Less than 15 mL/min/1.73 square meters Performed By: #### G FR, LIP, BMP, MG #### [address] [address] GFR 120 ml/min/1.73sqm Normal [facility] ([place] Comment on above: Result Comment: GFR Population mean for , Non- Americans Ages 20-29 = 116 mL/min/1.73 sq.m. Ages 30-39 = 107 mL/min/1.73 sq.m. Ages 40-49 = 99 mL/min/1.73 sq.m. Ages 50-59 = 93 mL/min/1.73 sq.m. Ages 60-69 = 85 mL/min/1.73 sq.m. Ages 70+ = 75 mL/min/1.73 sq.m. Chronic Kidney Disease: Less than 60 mL/min/1.73 square meters End Stage Renal Disease: Less than 15 mL/min/1.73 square meters Performed By: #### G FR, LIP, BMP, MG #### [address] [address] .Manual Diffon 11-27-2023 Bands 8.0 % High 0.0-5.0 [facility] ([place] Comment on above: Performed By: #### L IP, GFR, ANEU, ESR, YASMANY, ADIFF, CRP, CBC, CMP #### [address] [address] Basophil %, Manual 0.0 % Normal 0.0-2.5 [facility] ([place]) Comment on above: Performed By: #### L IP, GFR, ANEU, ESR, YASMANY, ADIFF, CRP, CBC, CMP #### [address] [address] Basophil, Abs Manual 0.0 10 3/mcL Normal 0.0-0.2 [facility] ([place] Comment on above: Performed By: #### L IP, GFR, ANEU, ESR, YASMANY, ADIFF, CRP, CBC, CMP #### [address] [address] Eosinophil %, Manual 0.0 % Normal 0.0-7.0 [facility] ([place] Comment on above: Performed By: #### L IP, GFR, ANEU, ESR, YASMANY, ADIFF, CRP, CBC, CMP #### [address] [address] Eosinophil, Abs Manual 0.0 10 3/mcL Normal 0.0-0.4 [facility] ([place] Comment on above: Performed By: #### L IP, GFR, ANEU, ESR, YASMANY, ADIFF, CRP, CBC, CMP #### [address] [address] Lymphocyte %, Manual 11.0 % Normal 10.0-50.0 [facility] ([place] Comment on above: Performed By: #### L IP, GFR, ANEU, ESR, YASMANY, ADIFF, CRP, CBC, CMP #### [address] [address] Lymphocyte, Abs Manual 1.0 10 3/mcL Normal 0.8-3.9 [facility] ([place] Comment on above: Performed By: #### L IP, GFR, ANEU, ESR, YASMANY, ADIFF, CRP, CBC, CMP #### [address] [address] Monocyte %, Manual 5.0 % Normal 1.7-13.0 [facility] ([place] Comment on above: Performed By: #### L IP, GFR, ANEU, ESR, YASMANY, ADIFF, CRP, CBC, CMP #### [address] [address] Monocyte, Abs Manual 0.5 10 3/mcL Normal 0.2-1.0 [facility] ([place] Comment on above: Performed By: #### L IP, GFR, ANEU, ESR, YASMANY, ADIFF, CRP, CBC, CMP #### [address] [address] Neutrophil %, Manual 76.0 % Normal 37.0-80.0 [facility] ([place] Comment on above: Performed By: #### L IP, GFR, ANEU, ESR, YASMANY, ADIFF, CRP, CBC, CMP #### [address] [address] Neutrophil, Abs Manual 7.5 10 3/mcL High 2.9-6.2 [facility] ([place] Comment on above: Performed By: #### L IP, GFR, ANEU, ESR, YASMANY, ADIFF, CRP, CBC, CMP #### [address] [address] Nucleated RBC 0.0 /100 WBC Normal [facility] ([place] Comment on above: Performed By: #### L IP, GFR, ANEU, ESR, YASMANY, ADIFF, CRP, CBC, CMP #### [address] [address] Bands 18.0 % High 0.0-5.0 [facility] ([place] Comment on above: Performed By: #### G FR, LIP, BMP, MG #### [address] [address] Basophil %, Manual 0.0 % Normal 0.0-2.5 [facility] ([place] Comment on above: Performed By: #### G FR, LIP, BMP, MG #### [address] [address] Basophil, Abs Manual 0.0 10 3/mcL Normal 0.0-0.2 [facility] ([place] Comment on above: Performed By: #### G FR, LIP, BMP, MG #### [address] [address] Eosinophil %, Manual 3.0 % Normal 0.0-7.0 [facility] ([place] Comment on above: Performed By: #### G FR, LIP, BMP, MG #### [address] [address] Eosinophil, Abs Manual 0.2 10 3/mcL Normal 0.0-0.4 [facility] ([place] Comment on above: Performed By: #### G FR, LIP, BMP, MG #### [address] [address] Lymphocyte %, Manual 22.0 % Normal 10.0-50.0 [facility] ([place] Comment on above: Performed By: #### G FR, LIP, BMP, MG #### [address] [address] Lymphocyte, Abs Manual 1.5 10 3/mcL Normal 0.8-3.9 [facility] ([place] Comment on above: Performed By: #### G FR, LIP, BMP, MG #### [address] [address] Monocyte %, Manual 4.0 % Normal 1.7-13.0 [facility] ([place] Comment on above: Performed By: #### G FR, LIP, BMP, MG #### [address] [address] Monocyte, Abs Manual 0.3 10 3/mcL Normal 0.2-1.0 [facility] ([place] Comment on above: Performed By: #### G FR, LIP, BMP, MG #### [address] [address] Neutrophil %, Manual 53.0 % Normal 37.0-80.0 [facility] ([place] Comment on above: Performed By: #### G FR, LIP, BMP, MG #### [address] [address] Neutrophil, Abs Manual 4.8 10 3/mcL Normal 2.9-6.2 [facility] ([place] Comment on above: Performed By: #### G FR, LIP, BMP, MG #### [address] [address] Nucleated RBC 0.0 /100 WBC Normal [facility] ([place] Comment on above: Performed By: #### G FR, LIP, BMP, MG #### [address] [address] .Morphon 11-27-2023 Platelet Estimate Normal Normal [facility]) Comment on above: Performed By: #### L IP, GFR, ANEU, ESR, YASMANY, ADIFF, CRP, CBC, CMP #### [address] [address] Anisocytosis Ql (Bld) 1+ Normal [facility] ([place] Comment on above: Performed By: #### L IP, GFR, ANEU, ESR, YASMANY, ADIFF, CRP, CBC, CMP #### [address] [address] Platelet Estimate Normal Normal [facility] ([place] Comment on above: Performed By: #### L IP, GFR, ANEU, ESR, YASMANY, ADIFF, CRP, CBC, CMP #### [address] [address] BMPon 11-27-2023 BUN/Creatinine Ratio 19 ratio Normal 7-27 [facility] ([place] Comment on above: Performed By: #### G FR, LIP, BMP, MG #### [address] [address] Calcium [Mass/Vol] 7.6 mg/dL Low 8.4-10.2 [facility] ([place] Comment on above: Performed By: #### G FR, LIP, BMP, MG #### [address] [address] Chloride [Moles/Vol] 104 mmol/L Normal 98-107 [facility] ([place] Comment on above: Performed By: #### G FR, LIP, BMP, MG #### [address] [address] CO2 [Moles/Vol] 26 mmol/L Normal 22-29 [facility] ([place] Comment on above: Performed By: #### G FR, LIP, BMP, MG #### [address] [address] Creatinine [Mass/Vol] 0.69 mg/dL Normal 0.55-1.02 [facility] ([place] Comment on above: Performed By: #### G FR, LIP, BMP, MG #### [address] [address] Electrolyte Balance 10.0 mEq/L Normal 4.0-15.0 [facility] ([place] Comment on above: Performed By: #### G FR, LIP, BMP, MG #### [address] [address] Glucose [Mass/Vol] 75 mg/dL Normal 70-105 [facility] ([place] Comment on above: Performed By: #### G FR, LIP, BMP, MG #### [address] [address] Potassium [Moles/Vol] 3.1 mmol/L Low 3.5-5.1 [facility] ([place] Comment on above: Performed By: #### G FR, LIP, BMP, MG #### [address] [address] Sodium [Moles/Vol] 140 mmol/L Normal 136-145 [facility] ([place] Comment on above: Performed By: #### G FR, LIP, BMP, MG #### [address] [address] Urea nitrogen [Mass/Vol] 13 mg/dL Normal 7-18 [facility] ([place] Comment on above: Performed By: #### G FR, LIP, BMP, MG #### [address] [address] CBCon 11-27-2023 Erythrocyte distribution width (RBC) [Ratio] 15.1 % High 11.5-14.5 [facility] ([place] Comment on above: Performed By: #### L IP, GFR, ANEU, ESR, YASMANY, ADIFF, CRP, CBC, CMP #### [address] [address] Hematocrit (Bld) [Volume fraction] 33.6 % Low 37.0-47.0 [facility] ([place] Comment on above: Performed By: #### L IP, GFR, ANEU, ESR, YASMANY, ADIFF, CRP, CBC, CMP #### [address] [address] Hgb 11.6 G/dL Low 12.0-16.0 [facility] ([place] Comment on above: Performed By: #### L IP, GFR, ANEU, ESR, YASMANY, ADIFF, CRP, CBC, CMP #### [address] [address] MCH (RBC) [Entitic mass] 33.4 pg High 27.0-31.2 [facility] ([place] Comment on above: Performed By: #### L IP, GFR, ANEU, ESR, YASMANY, ADIFF, CRP, CBC, CMP #### [address] [address] MCHC 34.6 G/dL Normal 33.0-37.0 [facility] ([place] Comment on above: Performed By: #### L IP, GFR, ANEU, ESR, YASMANY, ADIFF, CRP, CBC, CMP #### [address] [address] MCV (RBC) [Entitic vol] 96.3 fL High 80.0-94.0 A [facility] ([place] Comment on above: Performed By: #### L IP, GFR, ANEU, ESR, YASMANY, ADIFF, CRP, CBC, CMP #### [address] [address] Platelet 338 10 3/mcL Normal 130-400 [facility] ([place] Comment on above: Performed By: #### L IP, GFR, ANEU, ESR, YASMANY, ADIFF, CRP, CBC, CMP #### [address] [address] Platelet mean volume (Bld) [Entitic vol] 8.6 fL Normal 7.4-10.4 [facility] ([place] Comment on above: Performed By: #### L IP, GFR, ANEU, ESR, YASMANY, ADIFF, CRP, CBC, CMP #### [place] [phone] RBC 3.48 10 6/mcL Low 4.20-5.40 [facility] ([place] Comment on above: Performed By: #### L IP, GFR, ANEU, ESR, YASMANY, ADIFF, CRP, CBC, CMP #### [place] [phone] WBC 9.0 10 3/mcL Normal 4.6-10.8 [facility] ([place] Comment on above: Performed By: #### L IP, GFR, ANEU, ESR, YASMANY, ADIFF, CRP, CBC, CMP #### [place] [address] Erythrocyte distribution width (RBC) [Ratio] 15.3 % High 11.5-14.5 [facility] ([place] Comment on above: Performed By: #### G FR, LIP, BMP, MG #### [place] [address] Hematocrit (Bld) [Volume fraction] 34.6 % Low 37.0-47.0 [facility] ([place] Comment on above: Performed By: #### G FR, LIP, BMP, MG #### [place] [address] Hgb 11.8 G/dL Low 12.0-16.0 [facility] ([place] Comment on above: Performed By: #### G FR, LIP, BMP, MG #### [place] [id number] MCH (RBC) [Entitic mass] 32.9 pg High 27.0-31.2 [facility] ([place] Comment on above: Performed By: #### G FR, LIP, BMP, MG #### [place] [address] MCHC 34.2 G/dL Normal 33.0-37.0 [facility] ([place] Comment on above: Performed By: #### G FR, LIP, BMP, MG #### [place] [id number] MCV (RBC) [Entitic vol] 96.3 fL High 80.0-94.0 A [facility] ([place] Comment on above: Performed By: #### G FR, LIP, BMP, MG #### [address] [address] Platelet 324 10 3/mcL Normal 130-400 [facility] ([place] Comment on above: Performed By: #### G FR, LIP, BMP, MG #### [address] [address] Platelet mean volume (Bld) [Entitic vol] 9.4 fL Normal 7.4-10.4 [facility] ([place] Comment on above: Performed By: #### G FR, LIP, BMP, MG #### [address] [address] RBC 3.60 10 6/mcL Low 4.20-5.40 [facility] ([place] Comment on above: Performed By: #### G FR, LIP, BMP, MG #### [address] [address] WBC 6.9 10 3/mcL Normal 4.6-10.8 [facility] ([place] Comment on above: Performed By: #### G FR, LIP, BMP, MG #### [address] [address] CMPon 11-27-2023 ALT [Catalytic activity/Vol] 11 U/L Low 14-59 [facility] ([place] Comment on above: Performed By: #### L IP, GFR, ANEU, ESR, YASMANY, ADIFF, CRP, CBC, CMP #### [address] [address] Albumin Level 1.8 G/dL Low 3.5-5.0 [facility] ([place] Comment on above: Performed By: #### L IP, GFR, ANEU, ESR, YASMANY, ADIFF, CRP, CBC, CMP #### [address] [address] Albumin/Globulin [Mass ratio] 0.6 {ratio} Low 1.1-2.5 [facility] ([place] Comment on above: Performed By: #### L IP, GFR, ANEU, ESR, YASMANY, ADIFF, CRP, CBC, CMP #### [address] [address] ALP [Catalytic activity/Vol] 82 U/L Normal 40-135 [facility] ([place] Comment on above: Performed By: #### L IP, GFR, ANEU, ESR, YASMANY, ADIFF, CRP, CBC, CMP #### [address] [address] AST [Catalytic activity/Vol] 13 U/L Normal 10-40 [facility] ([place] Comment on above: Performed By: #### L IP, GFR, ANEU, ESR, YASMANY, ADIFF, CRP, CBC, CMP #### [address] [address] Bili Total 0.5 mg/dL Normal 0.2-1.0 [facility] ([place] Comment on above: Result Comment: Use of this assay is not recommended for patients undergoing treatment with eltrombopag due to the potential for falsely elevated results. Performed By: #### L IP, GFR, ANEU, ESR, YASMANY, ADIFF, CRP, CBC, CMP #### [address] [address] BUN/Creatinine Ratio 20 ratio Normal 7-27 [facility] ([place] Comment on above: Performed By: #### L IP, GFR, ANEU, ESR, YASMANY, ADIFF, CRP, CBC, CMP #### [address] [address] Calcium [Mass/Vol] 7.5 mg/dL Low 8.4-10.2 [facility] ([place] Comment on above: Performed By: #### L IP, GFR, ANEU, ESR, YASMANY, ADIFF, CRP, CBC, CMP #### [address] [address] Chloride [Moles/Vol] 104 mmol/L Normal 98-107 [facility] ([place] Comment on above: Performed By: #### L IP, GFR, ANEU, ESR, YASMANY, ADIFF, CRP, CBC, CMP #### [place] [address] CO2 [Moles/Vol] 21 mmol/L Low 22-29 [facility] ([place]) Comment on above: Performed By: #### L IP, GFR, ANEU, ESR, YASMANY, ADIFF, CRP, CBC, CMP #### [place] [address] Creatinine [Mass/Vol] 0.56 mg/dL Normal 0.55-1.02 [facility] ([place] Comment on above: Performed By: #### L IP, GFR, ANEU, ESR, YASMANY, ADIFF, CRP, CBC, CMP #### [address] [address] Electrolyte Balance 14.0 mEq/L Normal 4.0-15.0 [facility] ([place] Comment on above: Performed By: #### L IP, GFR, ANEU, ESR, YASMANY, ADIFF, CRP, CBC, CMP #### [place] [address] Globulin 2.9 G/dL Normal [facility] ([place] Comment on above: Performed By: #### L IP, GFR, ANEU, ESR, YASMANY, ADIFF, CRP, CBC, CMP #### [address] [address] Glucose [Mass/Vol] 73 mg/dL Normal 70-105 [facility] ([place] Comment on above: Performed By: #### L IP, GFR, ANEU, ESR, YASMANY, ADIFF, CRP, CBC, CMP #### [address] [address] Potassium [Moles/Vol] 3.4 mmol/L Low 3.5-5.1 [facility] ([place] Comment on above: Performed By: #### L IP, GFR, ANEU, ESR, YASMANY, ADIFF, CRP, CBC, CMP #### [address] [address] Sodium [Moles/Vol] 139 mmol/L Normal 136-145 [facility] ([place] Comment on above: Performed By: #### L IP, GFR, ANEU, ESR, YASMANY, ADIFF, CRP, CBC, CMP #### [address] [address] Total Protein 4.7 G/dL Low 6.4-8.2 [facility] ([place] Comment on above: Performed By: #### L IP, GFR, ANEU, ESR, YASMANY, ADIFF, CRP, CBC, CMP #### [address] [address] Urea nitrogen [Mass/Vol] 11 mg/dL Normal 7-18 [facility] ([place] Comment on above: Performed By: #### L IP, GFR, ANEU, ESR, YASMANY, ADIFF, CRP, CBC, CMP #### [address] [address] CRPon 11-27-2023 C-Reactive Protein 8.3 mg/dL High 0.0-0.3 [facility] ([place] Comment on above: Performed By: #### L IP, GFR, ANEU, ESR, YASMANY, ADIFF, CRP, CBC, CMP #### [address] [address] [address] ABD/PELVIS W/ IV CONTRAST ONLYon 11-27-2023 CT ABD/PELVIS W/ IV CONTRAST ONLY ORIGINAL EXAMINATION: CT OF THE ABDOMEN AND PELVIS WITH CONTRAST 11/27/2023 3:56 pm TECHNIQUE: CT of the abdomen and pelvis was performed with the administration of intravenous contrast. Multiplanar reformatted images are provided for review. Automated exposure control, iterative reconstruction, and/or weight based adjustment of the mA/kV was utilized to reduce the radiation dose to as low as reasonably achievable. COMPARISON: CT abdomen pelvis [id number] HISTORY: ORDERING SYSTEM PROVIDED HISTORY: Reason for Exam: SBO vs ileus, pain, abd distention FINDINGS: Lower Chest: There is interval development of bilateral moderate pleural effusions, and bilateral lower lobe atelectasis. Enteric feeding tube traverses the esophagus and terminates within the gastric lumen. Organs: The liver demonstrates no biliary duct dilatation or gross mass. There is diffuse hypoattenuation of the liver compatible with steatosis. Correlation with clinical findings may be useful. Prior cholecystectomy noted. There is increased mild diffuse enlargement of the pancreas, with mild increased parenchymal edema compatible with acute pancreatitis. There is no evidence of pancreatic necrosis or abscess formation. There is small volume of peripancreatic free fluid again noted, mildly decreased. There is no evidence of peripancreatic pseudocyst. Spleen is normal in size. Adrenal glands are normal in size. The kidneys enhance symmetrically without evidence of hydronephrosis. GI/Bowel: There is interval development of mild moderate diffuse enlargement of the small bowel with wall thickening, compatible with diffuse ileus and enteritis, with transition zone at the distal ileum, suggestive of an element of partial small bowel obstruction. There is redemonstration of diffuse wall thickening of the terminal ileum and distal ileum compatible with inflammatory versus infectious process. The colon is normal in caliber. Again noted appendicolith. There is moderate ascites within the abdomen and pelvis increased from prior study. Mastoid air cells are well-pneumatized and grossly clear. Mild mesenteric Pelvis: Urinary bladder is within normal limits. Uterus and ovaries are grossly normal in morphology. Peritoneum/Retroperi toneum: There are mildly enlarged retroperitoneal nodes which may be reactive. Bones/Soft Tissues: Osseous structures are intact. There is mild diffuse symmetric edema increased from prior study. IMPRESSION: 1. There is redemonstration of acute pancreatitis. There is no evidence of pancreatic necrosis or abscess. There is no pseudocyst. 2. There is interval development of mild moderate diffuse enlargement of the small bowel with wall thickening, compatible with diffuse ileus and enteritis, with transition zone at the distal ileum, suggestive of an element of partial small bowel obstruction. There is redemonstration of diffuse wall thickening of the terminal ileum and distal ileum compatible with inflammatory versus infectious process. 3. There is interval development of bilateral moderate pleural effusions, and bilateral lower lobe atelectasis. There is new moderate ascites. Interpreted by: Brennon Acuña Preliminary Report By: Brennon Acuña Electronically signed By Brennon Acuña Dictated Date: 11/27/2023 4:16:07 PM Prelim Date: 11/27/2023 4:30:28 PM Sign Date: 11/27/2023 4:30:28 PM Ordering Provider: PEE BUENROSTRO Normal [facility] [place] ESRon 11-27-2023 Erythrocyte Sed Rate 12 mm/hr Normal 0-20 [facility] ([place]) Comment on above: Performed By: #### L IP, GFR, ANEU, ESR, YASMANY, ADIFF, CRP, CBC, CMP #### [id number] [place], [place] [address] LABORATORYOrdered By: SYSTEM SYSTEM on 11-27-2023 Albumin BCP dye [Mass/Vol] 1.8 G/dL Low 3.5 - 5.0 G/dL AO ADM SS Albumin/Globulin [Mass ratio] 0.6 {ratio} Low 1.1 - 2.5 ratio AO ADM SS ALP [Catalytic activity/Vol] 82 U/L Normal 40 - 135 U/L AO ADM SS ALT With P-5'-P [Catalytic activity/Vol] 11 U/L Low 14 - 59 U/L AO ADM SS AST With P-5'-P [Catalytic activity/Vol] 13 U/L Normal 10 - 40 U/L AO ADM SS Bands 8.0 % High 0.0 - 5.0 % AO Workflow S S Basophil %, Manual 0.0 % Normal 0.0 - 2.5 % AO Wo rkflow SS Basophil, Abs Manual 0.0 103/mcL Normal 0.0 - 0 .2 10^3/mcL AO Workflow SS Bilirubin [Mass/Vol] 0.5 mg/dL Normal 0.2 - 1 .0 mg/dL AO ADM SS Comment on above: Interpretive Data: U se of this assay is not recommended for patients undergoing treatment with eltrombopag due to the potential for falsely elevated results. Calcium [Mass/Vol] 7.5 mg/dL Low 8.4 - 10. 2 mg/dL AO ADM SS Chloride [Moles/Vol] 104 mmol/L Normal 98 - 10 7 mmol/L AO ADM SS CO2 [Moles/Vol] 21 mmol/L Low 22 - 29 mmol/L AO ADM SS Creatinine [Mass/Vol] 0.56 mg/dL Normal 0.55 - 1.02 mg/dL AO ADM SS CRP [Mass/Vol] 8.3 mg/dL High 0.0 - 0.3 mg/dL AO ADM SS Electrolyte Balance 14.0 mEq/L Normal 4.0 - 15 .0 mEq/L AO ADM SS Eosinophil %, Manual 0.0 % Normal 0.0 - 7.0 % AO Workflow SS Eosinophils (Bld) [#/Vol] 0.0 103/mcL Normal 0.0 - 0.4 10^3/mcL AO Workflow SS Erythrocyte distribution width (RBC) [Ratio] 15.1 % High 11.5 - 14.5 % AO Workflow SS GFR/1.73 sq M.predicted among blacks MDRD (S/P/Bld) [Vol rate/Area] 152 ml/min/1.73sqm Invalid Interpretation Code AO Chemistry S Comment on above: Interpretive Data: GFR Population mean for , Non- Americans Ages 20-29 = 116 mL/min/1.73 sq.m. Ages 30-39 = 107 mL/min/1.73 sq.m. Ages 40-49 = 99 mL/min/1.73 sq.m. Ages 50-59 = 93 mL/min/1.73 sq.m. Ages 60-69 = 85 mL/min/1.73 sq.m. Ages 70+ = 75 mL/min/1.73 sq.m. Chronic Kidney Disease: Less than 60 mL/min/1.73 square meters End Stage Renal Disease: Less than 15 mL/min/1.73 square meters GFR/1.73 sq M.predicted among non-blacks MDRD (S/P/Bld) [Vol rate/Area] 125 ml/min/1.73sqm Invalid Interpretation Code AO Chemistry S Comment on above: Interpretive Data: GFR Population mean for , Non- Americans Ages 20-29 = 116 mL/min/1.73 sq.m. Ages 30-39 = 107 mL/min/1.73 sq.m. Ages 40-49 = 99 mL/min/1.73 sq.m. Ages 50-59 = 93 mL/min/1.73 sq.m. Ages 60-69 = 85 mL/min/1.73 sq.m. Ages 70+ = 75 mL/min/1.73 sq.m. Chronic Kidney Disease: Less than 60 mL/min/1.73 square meters End Stage Renal Disease: Less than 15 mL/min/1.73 square meters Globulin 2.9 G/dL Invalid Interpretation Code AO ADM SS Glucose [Mass/Vol] 73 mg/dL Normal 70 - 105 mg/dL AO ADM SS Hematocrit (Bld) [Volume fraction] 33.6 % Low 37.0 - 47.0 % AO Workflow SS Hemoglobin (Bld) [Mass/Vol] 11.6 G/dL Low 12.0 - 16.0 G/dL AO Workflow SS Lactate [Moles/Vol] 0.6 mmol/L Normal 0.4 - 2. 0 mmol/L AO ADM SS Lipase [Catalytic activity/Vol] 125 U/L High 16 - 77 U/L AO ADM SS Lymphocyte %, Manual 11.0 % Normal 10.0 - 50.0 % AO Workflow SS Lymphocyte, Abs Manual 1.0 103/mcL Normal 0.8 - 3.9 10^3/mcL AO Workflow SS MCH (RBC) [Entitic mass] 33.4 pg High 27. 0 - 31.2 pg AO Workflow SS MCHC 34.6 G/dL Normal 33.0 - 37.0 G/dL AO Workflow SS MCV (RBC) [Entitic vol] 96.3 fL High 80.0 - 94.0 fL AO Workflow SS Monocyte %, Manual 5.0 % Normal 1.7 - 13. 0 % AO Workflow SS Monocyte, Abs Manual 0.5 103/mcL Normal 0.2 - 1 .0 10^3/mcL AO Workflow SS Neutrophil %, Manual 76.0 % Normal 37.0 - 80.0 % AO Workflow SS Neutrophil, Abs Manual 7.5 103/mcL High 2.9 - 6.2 10^3/mcL AO Workflow SS Nucleated RBC 0.0 /100 WBC Invalid Interpretation Code AO Workflow SS Platelet Estimate Normal *NA* (11/27/23 3:54 PM) Invalid Interpretation Code AO Workflow SS Platelet mean volume (Bld) [Entitic vol] 8.6 fL Normal 7.4 - 10.4 fL AO Workflow SS Platelets (Bld) [#/Vol] 338 103/mcL Normal 130 - 400 10^3/mcL AO Workflow SS Potassium [Moles/Vol] 3.4 mmol/L Low 3.5 - 5.1 mmol/L AO ADM SS Protein [Mass/Vol] 4.7 G/dL Low 6.4 - 8.2 G/dL AO ADM SS RBC (Bld) [#/Vol] 3.48 106/mcL Low 4.20 - 5.4 0 10^6/mcL AO Workflow SS Sodium [Moles/Vol] 139 mmol/L Normal 136 - 145 mmol/L AO ADM SS Urea nitrogen [Mass/Vol] 11 mg/dL Normal 7 - 18 mg/dL AO ADM SS Urea nitrogen/Creatinine [Mass ratio] 20 ratio Normal 7 - 27 ratio AO ADM SS WBC (Bld) [#/Vol] 9.0 103/mcL Normal 4.6 - 10.8 10^3/mcL AO Workflow SS Anisocytosis Ql (Bld) 1+ *NA* (11/27/23 5:22 AM) Invalid Interpretation Code AO Workflow SS Bands 18.0 % High 0.0 - 5.0 % AO Workflow S S Basophil %, Manual 0.0 % Normal 0.0 - 2.5 % AO Wo rkflow SS Basophil, Abs Manual 0.0 103/mcL Normal 0.0 - 0 .2 10^3/mcL AO Workflow SS Calcium [Mass/Vol] 7.6 mg/dL Low 8.4 - 10. 2 mg/dL AO ADM SS Chloride [Moles/Vol] 104 mmol/L Normal 98 - 10 7 mmol/L AO ADM SS CO2 [Moles/Vol] 26 mmol/L Normal 22 - 29 mmol/L AO ADM SS Creatinine [Mass/Vol] 0.69 mg/dL Normal 0.55 - 1.02 mg/dL AO ADM SS Electrolyte Balance 10.0 mEq/L Normal 4.0 - 15 .0 mEq/L AO ADM SS Eosinophil %, Manual 3.0 % Normal 0.0 - 7.0 % AO Workflow SS Eosinophils (Bld) [#/Vol] 0.2 103/mcL Normal 0.0 - 0.4 10^3/mcL AO Workflow SS Erythrocyte distribution width (RBC) [Ratio] 15.3 % High 11.5 - 14.5 % AO Workflow SS GFR/1.73 sq M.predicted among blacks MDRD (S/P/Bld) [Vol rate/Area] 120 ml/min/1.73sqm Invalid Interpretation Code AO Chemistry S Comment on above: Interpretive Data: GFR Population mean for , Non- Americans Ages 20-29 = 116 mL/min/1.73 sq.m. Ages 30-39 = 107 mL/min/1.73 sq.m. Ages 40-49 = 99 mL/min/1.73 sq.m. Ages 50-59 = 93 mL/min/1.73 sq.m. Ages 60-69 = 85 mL/min/1.73 sq.m. Ages 70+ = 75 mL/min/1.73 sq.m. Chronic Kidney Disease: Less than 60 mL/min/1.73 square meters End Stage Renal Disease: Less than 15 mL/min/1.73 square meters GFR/1.73 sq M.predicted among non-blacks MDRD (S/P/Bld) [Vol rate/Area] 99 ml/min/1.73sqm Invalid Interpretation Code AO Chemistry S Comment on above: Interpretive Data: GFR Population mean for , Non- Americans Ages 20-29 = 116 mL/min/1.73 sq.m. Ages 30-39 = 107 mL/min/1.73 sq.m. Ages 40-49 = 99 mL/min/1.73 sq.m. Ages 50-59 = 93 mL/min/1.73 sq.m. Ages 60-69 = 85 mL/min/1.73 sq.m. Ages 70+ = 75 mL/min/1.73 sq.m. Chronic Kidney Disease: Less than 60 mL/min/1.73 square meters End Stage Renal Disease: Less than 15 mL/min/1.73 square meters Glucose [Mass/Vol] 75 mg/dL Normal 70 - 105 mg/dL AO ADM SS Hematocrit (Bld) [Volume fraction] 34.6 % Low 37.0 - 47.0 % AO Workflow SS Hemoglobin (Bld) [Mass/Vol] 11.8 G/dL Low 12.0 - 16.0 G/dL AO Workflow SS Lymphocyte %, Manual 22.0 % Normal 10.0 - 50.0 % AO Workflow SS Lymphocyte, Abs Manual 1.5 103/mcL Normal 0.8 - 3.9 10^3/mcL AO Workflow SS Magnesium [Mass/Vol] 1.7 mg/dL Low 1.8 - 2 .4 mg/dL AO ADM SS MCH (RBC) [Entitic mass] 32.9 pg High 27. 0 - 31.2 pg AO Workflow SS MCHC 34.2 G/dL Normal 33.0 - 37.0 G/dL AO Workflow SS MCV (RBC) [Entitic vol] 96.3 fL High 80.0 - 94.0 fL AO Workflow SS Monocyte %, Manual 4.0 % Normal 1.7 - 13. 0 % AO Workflow SS Monocyte, Abs Manual 0.3 103/mcL Normal 0.2 - 1 .0 10^3/mcL AO Workflow SS Neutrophil %, Manual 53.0 % Normal 37.0 - 80.0 % AO Workflow SS Neutrophil, Abs Manual 4.8 103/mcL Normal 2.9 - 6.2 10^3/mcL AO Workflow SS Nucleated RBC 0.0 /100 WBC Invalid Interpretation Code AO Workflow SS Platelet Estimate Normal *NA* (11/27/23 5:22 AM) Invalid Interpretation Code AO Workflow SS Platelet mean volume (Bld) [Entitic vol] 9.4 fL Normal 7.4 - 10.4 fL AO Workflow SS Platelets (Bld) [#/Vol] 324 103/mcL Normal 130 - 400 10^3/mcL AO Workflow SS Potassium [Moles/Vol] 3.1 mmol/L Low 3.5 - 5.1 mmol/L AO ADM SS RBC (Bld) [#/Vol] 3.60 106/mcL Low 4.20 - 5.4 0 10^6/mcL AO Workflow SS Sodium [Moles/Vol] 140 mmol/L Normal 136 - 145 mmol/L AO ADM SS Urea nitrogen [Mass/Vol] 13 mg/dL Normal 7 - 18 mg/dL AO ADM SS Urea nitrogen/Creatinine [Mass ratio] 19 ratio Normal 7 - 27 ratio AO ADM SS WBC (Bld) [#/Vol] 6.9 103/mcL Normal 4.6 - 10.8 10^3/mcL AO Workflow SS LABORATORYOrdered By: Laura Buchanan on 11-27-2023 ESR Photometric method (Bld) [Velocity] 12 mm/hr Normal 0 - 20 mm/hr AO Man Heme SS LACon 11-27-2023 Lactic Acid Lvl 0.6 mmol/L Normal 0.4-2.0 [facility] ([place]) Comment on above: Performed By: #### L IP, GFR, ANEU, ESR, YASMANY, ADIFF, CRP, CBC, CMP #### [facility] [address] [place], [place] [address] LIPon 11-27-2023 Lipase Level 125 U/L High 16-77 [facility] ([place]) Comment on above: Performed By: #### L IP, GFR, ANEU, ESR, YASMANY, ADIFF, CRP, CBC, CMP #### [address] [place], [place] [address] MGon 11-27-2023 Magnesium [Mass/Vol] 1.7 mg/dL Low 1.8-2.4 [facility] ([place]) Comment on above: Performed By: #### G FR, LIP, BMP, MG #### [address] [place], [place] [address] XR ABDOMEN APon 11-27-2023 XR ABDOMEN AP ORIGINAL EXAMINATION: ONE SUPINE XRAY VIEW(S) OF THE ABDOMEN 11/27/2023 1:46 pm COMPARISON: 11/27/2023, 11/26/2023, 11/23/2023 HISTORY: ORDERING SYSTEM PROVIDED HISTORY: Reason for Exam: s/p NG palcement FINDINGS: Enteric tube is seen coursing below the diaphragm with the tip at the level of the gastric body. The side port is below the diaphragm. There are multiple loops of dilated small bowel measuring up to 4.8 cm. Overall appearance is similar to the prior exam. Gas is seen within the colon. Cholecystectomy clips are seen in the right upper quadrant. IMPRESSION: Enteric tube at its expected location. No significant change in bowel gas pattern. Interpreted by: Wenceslao Summers MD Preliminary Report By: Wenceslao Summers MD Electronically signed By Wenceslao Summers MD Dictated Date: 11/27/2023 2:05:25 PM Prelim Date: 11/27/2023 2:08:06 PM Sign Date: 11/27/2023 2:08:06 PM Ordering Provider: PEE Raza [facility] ([place]) XR ABDOMEN AP ORIGINAL EXAMINATION: ONE SUPINE XRAY VIEW(S) OF THE ABDOMEN 11/27/2023 5:22 am COMPARISON: KUB 11/26/2023 HISTORY: ORDERING SYSTEM PROVIDED HISTORY: Reason for Exam: SBO vs ileus FINDINGS: Interval removal of the enteric tube. There remain dilated loops of small bowel, slightly improved from the prior study. Minimal air is seen within the rectum. Right upper quadrant surgical clips. No acute osseous abnormality. IMPRESSION: Persistent dilated loops of small bowel which appear marginally improved from the prior study. Low-grade small bowel obstruction cannot be excluded. I have personally reviewed the images of this examination, and agree with the resident's findings and interpretation. Interpreted by: David Kaplan MD Preliminary Report By: Gary Ortiz Electronically signed By David Kaplan MD Dictated Date: 11/27/2023 5:26:54 AM Prelim Date: 11/27/2023 5:30:26 AM Sign Date: 11/27/2023 5:49:58 AM Ordering Provider: PEE BUENROSTRO [facility]) XR ENTERIC TUBE PLACEMENTon 11-27-2023 XR ENTERIC TUBE PLACEMENT ORIGINAL EXAMINATION: ONE SUPINE XRAY VIEW(S) OF THE ABDOMEN 11/27/2023 10:39 pm COMPARISON: Prior abdominal radiographs of the same date. HISTORY: ORDERING SYSTEM PROVIDED HISTORY: Reason for Exam: NGT placement FINDINGS: Enteric tube tip and side hole overlying the gastric bubble in appropriate position within the stomach. No free air seen beneath the level of the diaphragm. IMPRESSION: Enteric tube in appropriate position. Interpreted by: Ghanshyam Lazcano MD Preliminary Report By: Ghanshyam Lazcano MD Electronically signed By Ghanshyam Lazcano MD Dictated Date: 11/27/2023 10:49:10 PM Prelim Date: 11/27/2023 10:49:49 PM Sign Date: 11/27/2023 10:49:49 PM Ordering Provider: BEN CUEVAS [facility] ([place]) .Auto Diffon 11-26-2023 Basophil, Absolute 0.0 10 3/mcL Normal 0.0-0.2 [facility] ([place]) Comment on above: Performed By: #### L IP, GFR, ANEU, ESR, YASMANY, ADIFF, CRP, CBC, CMP #### [address] [address] Basophils/100 WBC (Bld) 0.1 % Normal 0.0-2.5 A [facility] ([place]) Comment on above: Performed By: #### L IP, GFR, ANEU, ESR, YASMANY, ADIFF, CRP, CBC, CMP #### [address] [address] Eosinophil, Absolute 0.0 10 3/mcL Normal 0.0-0.4 [facility] ([place]) Comment on above: Performed By: #### L IP, GFR, ANEU, ESR, YASMANY, ADIFF, CRP, CBC, CMP #### [address] [address] Eosinophils/100 WBC (Bld) 0.6 % Normal 0.0-7.0 [facility] ([place] Comment on above: Performed By: #### L IP, GFR, ANEU, ESR, YASMANY, ADIFF, CRP, CBC, CMP #### [address] [address] Lymphocyte, Absolute 0.6 10 3/mcL Low 0.8-3.9 [facility] ([place] Comment on above: Performed By: #### L IP, GFR, ANEU, ESR, YASMANY, ADIFF, CRP, CBC, CMP #### [address] [address] Lymphocytes/100 WBC (Bld) 16.1 % Normal 10.0-50.0 [facility] ([place] Comment on above: Performed By: #### L IP, GFR, ANEU, ESR, YASMANY, ADIFF, CRP, CBC, CMP #### [address] [address] Monocyte, Absolute 0.4 10 3/mcL Normal 0.2-1.0 [facility] ([place] Comment on above: Performed By: #### L IP, GFR, ANEU, ESR, YASMANY, ADIFF, CRP, CBC, CMP #### [address] [address] Monocytes/100 WBC (Bld) 10.8 % Normal 1.7-13.0 [facility] ([place]) Comment on above: Performed By: #### L IP, GFR, ANEU, ESR, YASMANY, ADIFF, CRP, CBC, CMP #### [address] [address] Neutrophils/100 WBC (Bld) 72.4 % Normal 37.0-80.0 [facility] ([place] Comment on above: Performed By: #### L IP, GFR, ANEU, ESR, YASMANY, ADIFF, CRP, CBC, CMP #### [address] [address] .GFRon 11-26-2023 GFR Non- 123 ml/min/1.73sqm Normal [facility] ([place] Comment on above: Result Comment: GFR Population mean for , Non- Americans Ages 20-29 = 116 mL/min/1.73 sq.m. Ages 30-39 = 107 mL/min/1.73 sq.m. Ages 40-49 = 99 mL/min/1.73 sq.m. Ages 50-59 = 93 mL/min/1.73 sq.m. Ages 60-69 = 85 mL/min/1.73 sq.m. Ages 70+ = 75 mL/min/1.73 sq.m. Chronic Kidney Disease: Less than 60 mL/min/1.73 square meters End Stage Renal Disease: Less than 15 mL/min/1.73 square meters Performed By: #### L IP, GFR, ANEU, ESR, YASMANY, ADIFF, CRP, CBC, CMP #### [address] [address] GFR 149 ml/min/1.73sqm Normal [facility] ([place] Comment on above: Result Comment: GFR Population mean for , Non- Americans Ages 20-29 = 116 mL/min/1.73 sq.m. Ages 30-39 = 107 mL/min/1.73 sq.m. Ages 40-49 = 99 mL/min/1.73 sq.m. Ages 50-59 = 93 mL/min/1.73 sq.m. Ages 60-69 = 85 mL/min/1.73 sq.m. Ages 70+ = 75 mL/min/1.73 sq.m. Chronic Kidney Disease: Less than 60 mL/min/1.73 square meters End Stage Renal Disease: Less than 15 mL/min/1.73 square meters Performed By: #### L IP, GFR, ANEU, ESR, YASMANY, ADIFF, CRP, CBC, CMP #### [address] [address] .NEUABSon 11-26-2023 Neutrophil, Absolute 2.5 10 3/mcL Low 2.9-6.2 [facility] ([place] Comment on above: Performed By: #### L IP, GFR, ANEU, ESR, YASMANY, ADIFF, CRP, CBC, CMP #### [address] [address] BMPon 11-26-2023 BUN/Creatinine Ratio 21 ratio Normal 7-27 [facility] ([place] Comment on above: Performed By: #### L IP, GFR, ANEU, ESR, YASMANY, ADIFF, CRP, CBC, CMP #### [address] [address] Calcium [Mass/Vol] 7.4 mg/dL Low 8.4-10.2 [facility] ([place]) Comment on above: Performed By: #### L IP, GFR, ANEU, ESR, YASMANY, ADIFF, CRP, CBC, CMP #### [address] [address] Chloride [Moles/Vol] 104 mmol/L Normal 98-107 [facility] ([place] Comment on above: Performed By: #### L IP, GFR, ANEU, ESR, YSAMANY, ADIFF, CRP, CBC, CMP #### [address] [address] CO2 [Moles/Vol] 26 mmol/L Normal 22-29 [facility] ([place]) Comment on above: Performed By: #### L IP, GFR, ANEU, ESR, YASMANY, ADIFF, CRP, CBC, CMP #### [address] [address] Creatinine [Mass/Vol] 0.57 mg/dL Normal 0.55-1.02 [facility] ([place] Comment on above: Performed By: #### L IP, GFR, ANEU, ESR, YASMANY, ADIFF, CRP, CBC, CMP #### [address] [address] Electrolyte Balance 9.0 mEq/L Normal 4.0-15.0 [facility] ([place] Comment on above: Performed By: #### L IP, GFR, ANEU, ESR, YASMANY, ADIFF, CRP, CBC, CMP #### [address] [address] Glucose [Mass/Vol] 113 mg/dL High 70-105 [facility] ([place] Comment on above: Performed By: #### L IP, GFR, ANEU, ESR, YASMANY, ADIFF, CRP, CBC, CMP #### [address] [address] Potassium [Moles/Vol] 3.7 mmol/L Normal 3.5-5.1 [facility] ([place] Comment on above: Performed By: #### L IP, GFR, ANEU, ESR, YASMANY, ADIFF, CRP, CBC, CMP #### [place] [id number] Sodium [Moles/Vol] 139 mmol/L Normal 136-145 [facility] ([place] Comment on above: Performed By: #### L IP, GFR, ANEU, ESR, YASMANY, ADIFF, CRP, CBC, CMP #### [address] [address] Urea nitrogen [Mass/Vol] 12 mg/dL Normal 7-18 [facility] ([place] Comment on above: Performed By: #### L IP, GFR, ANEU, ESR, YASMANY, ADIFF, CRP, CBC, CMP #### [address] [address] CBCon 11-26-2023 Erythrocyte distribution width (RBC) [Ratio] 15.0 % High 11.5-14.5 [facility] ([place] Comment on above: Performed By: #### L IP, GFR, ANEU, ESR, YASMANY, ADIFF, CRP, CBC, CMP #### [place] [id number] Hematocrit (Bld) [Volume fraction] 34.3 % Low 37.0-47.0 [facility] ([place] Comment on above: Performed By: #### L IP, GFR, ANEU, ESR, YASMANY, ADIFF, CRP, CBC, CMP #### [address] [address] Hgb 11.8 G/dL Low 12.0-16.0 [facility] ([place] Comment on above: Performed By: #### L IP, GFR, ANEU, ESR, YASMANY, ADIFF, CRP, CBC, CMP #### [address] [address] MCH (RBC) [Entitic mass] 33.3 pg High 27.0-31.2 [facility] ([place] Comment on above: Performed By: #### L IP, GFR, ANEU, ESR, YASMANY, ADIFF, CRP, CBC, CMP #### [address] [address] MCHC 34.5 G/dL Normal 33.0-37.0 [facility] ([place] Comment on above: Performed By: #### L IP, GFR, ANEU, ESR, YASMANY, ADIFF, CRP, CBC, CMP #### [address] [address] MCV (RBC) [Entitic vol] 96.5 fL High 80.0-94.0 [facility] ([place] Comment on above: Performed By: #### L IP, GFR, ANEU, ESR, YASMANY, ADIFF, CRP, CBC, CMP #### [address] [address] Platelet 251 10 3/mcL Normal 130-400 [facility] ([place] Comment on above: Performed By: #### L IP, GFR, ANEU, ESR, YASMANY, ADIFF, CRP, CBC, CMP #### [address] [address] Platelet mean volume (Bld) [Entitic vol] 9.8 fL Normal 7.4-10.4 [facility] ([place] Comment on above: Performed By: #### L IP, GFR, ANEU, ESR, YASMANY, ADIFF, CRP, CBC, CMP #### [address] [address] RBC 3.55 10 6/mcL Low 4.20-5.40 [facility] ([place]) Comment on above: Performed By: #### L IP, GFR, ANEU, ESR, YASMANY, ADIFF, CRP, CBC, CMP #### [address] [address] WBC 3.4 10 3/mcL Low 4.6-10.8 [facility] ([place] Comment on above: Performed By: #### L IP, GFR, ANEU, ESR, YASMANY, ADIFF, CRP, CBC, CMP #### [address] [address] LABORATORYOrdered By: SYSTEM SYSTEM on 11-26-2023 Basophil, Absolute 0.0 103/mcL Normal 0.0 - 0.2 10^3/mcL AO Workflow SS Basophils/100 WBC (Bld) 0.1 % Normal 0.0 - 2.5 % AO Workflow SS Eosinophil, Absolute 0.0 103/mcL Normal 0.0 - 0 .4 10^3/mcL AO Workflow SS Eosinophils/100 WBC (Bld) 0.6 % Normal 0.0 - 7.0 % AO Workflow SS Lipase [Catalytic activity/Vol] 115 U/L High 16 - 77 U/L AO ADM SS Lymphocyte, Absolute 0.6 103/mcL Low 0.8 - 3 .9 10^3/mcL AO Workflow SS Lymphocytes/100 WBC (Bld) 16.1 % Normal 10.0 - 50.0 % AO Workflow SS Magnesium [Mass/Vol] 1.9 mg/dL Normal 1.8 - 2 .4 mg/dL AO ADM SS Monocyte, Absolute 0.4 103/mcL Normal 0.2 - 1.0 10^3/mcL AO Workflow SS Monocytes/100 WBC (Bld) 10.8 % Normal 1.7 - 13.0 % AO Workflow SS Neutrophil, Absolute 2.5 103/mcL Low 2.9 - 6 .2 10^3/mcL AO Workflow SS Neutrophils/100 WBC (Bld) 72.4 % Normal 37.0 - 80.0 % AO Workflow SS LIPon 11-26-2023 Lipase Level 115 U/L High 16-77 [facility] ([place] Comment on above: Performed By: #### L IP, GFR, ANEU, ESR, YASMANY, ADIFF, CRP, CBC, CMP #### [address] [address] MGon 11-26-2023 Magnesium [Mass/Vol] 1.9 mg/dL Normal 1.8-2.4 [facility] ([place] Comment on above: Performed By: #### L IP, GFR, ANEU, ESR, YASMANY, ADIFF, CRP, CBC, CMP #### [address] [address] XR ABDOMEN APon 11-26-2023 XR ABDOMEN AP ORIGINAL EXAMINATION: ONE SUPINE XRAY VIEW(S) OF THE ABDOMEN11/26/2023 10:11 am COMPARISON: CT 11/23/2023 HISTORY: ORDERING SYSTEM PROVIDED HISTORY: Reason for Exam: abd distention, pain, FINDINGS: There are multiple moderately dilated small bowel loops. Moderate gas in nondilated colon and in the stomach also. No supine evidence of free air. IMPRESSION: Early/incomplete small bowel obstruction versus ileus. Interpreted by: Abdirahman Sexton MD Preliminary Report By: Abdirahman Sexton MD Electronically signed By Abdirahman Sexton MD Dictated Date: 11/26/2023 10:17:14 AM Prelim Date: 11/26/2023 10:17:55 AM Sign Date: 11/26/2023 10:17:55 AM Ordering Provider: PEE Raza [facility] ([place]) XR ENTERIC TUBE PLACEMENTon 11-26-2023 XR ENTERIC TUBE PLACEMENT ORIGINAL EXAMINATION: ONE SUPINE XRAY VIEW(S) OF THE ABDOMEN11/26/2023 11:58 am COMPARISON: Same day HISTORY: ORDERING SYSTEM PROVIDED HISTORY: Reason for Exam: NG PLACEMENT, FINDINGS: Enteric tube extends below diaphragm terminating in the region of the gastric body. Dilated bowel loops are again seen. IMPRESSION: Enteric tube is in the stomach. Interpreted by: Abdirahman Sexton MD Preliminary Report By: Abdirahman Sexton MD Electronically signed By Abdirahman Sexton MD Dictated Date: 11/26/2023 12:09:20 PM Prelim Date: 11/26/2023 12:09:46 PM Sign Date: 11/26/2023 12:09:46 PM Ordering Provider: PEE BUENROSTRO [facility] ([place]) .Auto Diffon 11-25-2023 Basophil, Absolute 0.0 10 3/mcL Normal 0.0-0.2 [facility] ([place]) Comment on above: Performed By: #### L IP, GFR, ANEU, ESR, YASMANY, ADIFF, CRP, CBC, CMP #### [address] [address] Basophils/100 WBC (Bld) 0.3 % Normal 0.0-2.5 A [facility] ([place]) Comment on above: Performed By: #### L IP, GFR, ANEU, ESR, YASMANY, ADIFF, CRP, CBC, CMP #### [address] [address] Eosinophil, Absolute 0.1 10 3/mcL Normal 0.0-0.4 [facility] ([place] Comment on above: Performed By: #### L IP, GFR, ANEU, ESR, YASMANY, ADIFF, CRP, CBC, CMP #### [address] [address] Eosinophils/100 WBC (Bld) 1.1 % Normal 0.0-7.0 [facility] ([place]) Comment on above: Performed By: #### L IP, GFR, ANEU, ESR, YASMANY, ADIFF, CRP, CBC, CMP #### [address] [address] Lymphocyte, Absolute 1.0 10 3/mcL Normal 0.8-3.9 [facility] ([place]) Comment on above: Performed By: #### L IP, GFR, ANEU, ESR, YASMANY, ADIFF, CRP, CBC, CMP #### [address] [address] Lymphocytes/100 WBC (Bld) 10.4 % Normal 10.0-50.0 [facility] ([place]) Comment on above: Performed By: #### L IP, GFR, ANEU, ESR, YASMANY, ADIFF, CRP, CBC, CMP #### [address] [address] Monocyte, Absolute 0.5 10 3/mcL Normal 0.2-1.0 [facility] ([place]) Comment on above: Performed By: #### L IP, GFR, ANEU, ESR, YASMANY, ADIFF, CRP, CBC, CMP #### [address] [address] Monocytes/100 WBC (Bld) 5.0 % Normal 1.7-13.0 A [facility] ([place]) Comment on above: Performed By: #### L IP, GFR, ANEU, ESR, YASMANY, ADIFF, CRP, CBC, CMP #### [address] [address] Neutrophils/100 WBC (Bld) 83.2 % High 37.0-80.0 [facility] ([place]) Comment on above: Performed By: #### L IP, GFR, ANEU, ESR, YASMANY, ADIFF, CRP, CBC, CMP #### [address] [address] .GFRon 11-25-2023 GFR 118 ml/min/1.73sqm Normal [facility] ([place] Comment on above: Result Comment: GFR Population mean for , Non- Americans Ages 20-29 = 116 mL/min/1.73 sq.m. Ages 30-39 = 107 mL/min/1.73 sq.m. Ages 40-49 = 99 mL/min/1.73 sq.m. Ages 50-59 = 93 mL/min/1.73 sq.m. Ages 60-69 = 85 mL/min/1.73 sq.m. Ages 70+ = 75 mL/min/1.73 sq.m. Chronic Kidney Disease: Less than 60 mL/min/1.73 square meters End Stage Renal Disease: Less than 15 mL/min/1.73 square meters Performed By: #### L IP, GFR, ANEU, ESR, YASMANY, ADIFF, CRP, CBC, CMP #### [address] [address] GFR Non- 97 ml/min/1.73sqm Normal [facility] ([place]) Comment on above: Result Comment: GFR Population mean for , Non- Americans Ages 20-29 = 116 mL/min/1.73 sq.m. Ages 30-39 = 107 mL/min/1.73 sq.m. Ages 40-49 = 99 mL/min/1.73 sq.m. Ages 50-59 = 93 mL/min/1.73 sq.m. Ages 60-69 = 85 mL/min/1.73 sq.m. Ages 70+ = 75 mL/min/1.73 sq.m. Chronic Kidney Disease: Less than 60 mL/min/1.73 square meters End Stage Renal Disease: Less than 15 mL/min/1.73 square meters Performed By: #### L IP, GFR, ANEU, ESR, YASMANY, ADIFF, CRP, CBC, CMP #### [address] [address] .NEUABSon 11-25-2023 Neutrophil, Absolute 7.9 10 3/mcL High 2.9-6.2 [facility] ([place]) Comment on above: Performed By: #### L IP, GFR, ANEU, ESR, YASMANY, ADIFF, CRP, CBC, CMP #### [address] [address] BMPon 11-25-2023 BUN/Creatinine Ratio 17 ratio Normal 7-27 [facility] ([place]) Comment on above: Performed By: #### L IP, GFR, ANEU, ESR, YASMANY, ADIFF, CRP, CBC, CMP #### [address] [address] Calcium [Mass/Vol] 7.8 mg/dL Low 8.4-10.2 [facility] ([place]) Comment on above: Performed By: #### L IP, GFR, ANEU, ESR, YASMANY, ADIFF, CRP, CBC, CMP #### [address] [address] Chloride [Moles/Vol] 99 mmol/L Normal 98-107 [facility] ([place]) Comment on above: Performed By: #### L IP, GFR, ANEU, ESR, YASMANY, ADIFF, CRP, CBC, CMP #### [address] [address] CO2 [Moles/Vol] 27 mmol/L Normal 22-29 [facility] ([place]) Comment on above: Performed By: #### L IP, GFR, ANEU, ESR, YASMANY, ADIFF, CRP, CBC, CMP #### [address] [address] Creatinine [Mass/Vol] 0.70 mg/dL Normal 0.55-1.02 [facility] ([place]) Comment on above: Performed By: #### L IP, GFR, ANEU, ESR, YASMANY, ADIFF, CRP, CBC, CMP #### [place] [phone] Electrolyte Balance 12.0 mEq/L Normal 4.0-15.0 [facility] ([place]) Comment on above: Performed By: #### L IP, GFR, ANEU, ESR, YASMANY, ADIFF, CRP, CBC, CMP #### [place] [address] Glucose [Mass/Vol] 109 mg/dL High 70-105 [facility] ([place]) Comment on above: Performed By: #### L IP, GFR, ANEU, ESR, YASMANY, ADIFF, CRP, CBC, CMP #### [address] [address] Potassium [Moles/Vol] 3.7 mmol/L Normal 3.5-5.1 [facility] ([place] Comment on above: Performed By: #### L IP, GFR, ANEU, ESR, YASMANY, ADIFF, CRP, CBC, CMP #### [address] [address] Sodium [Moles/Vol] 138 mmol/L Normal 136-145 [facility] ([place]) Comment on above: Performed By: #### L IP, GFR, ANEU, ESR, YASMANY, ADIFF, CRP, CBC, CMP #### [place] [address] Urea nitrogen [Mass/Vol] 12 mg/dL Normal 7-18 [facility] ([place]) Comment on above: Performed By: #### L IP, GFR, ANEU, ESR, YASMANY, ADIFF, CRP, CBC, CMP #### [place] [id number] CBCon 11-25-2023 Erythrocyte distribution width (RBC) [Ratio] 15.0 % High 11.5-14.5 [facility] ([place]) Comment on above: Performed By: #### L IP, GFR, ANEU, ESR, YASMANY, ADIFF, CRP, CBC, CMP #### [address] [address] Hematocrit (Bld) [Volume fraction] 40.8 % Normal 37.0-47.0 [facility] ([place]) Comment on above: Performed By: #### L IP, GFR, ANEU, ESR, YASMANY, ADIFF, CRP, CBC, CMP #### [address] [address] Hgb 13.9 G/dL Normal 12.0-16.0 [facility] ([place]) Comment on above: Performed By: #### L IP, GFR, ANEU, ESR, YASMANY, ADIFF, CRP, CBC, CMP #### [address] [address] MCH (RBC) [Entitic mass] 33.3 pg High 27.0-31.2 [facility] ([place]) Comment on above: Performed By: #### L IP, GFR, ANEU, ESR, YASMANY, ADIFF, CRP, CBC, CMP #### [address] [address] MCHC 34.1 G/dL Normal 33.0-37.0 [facility] ([place]) Comment on above: Performed By: #### L IP, GFR, ANEU, ESR, YASMANY, ADIFF, CRP, CBC, CMP #### [address] [address] MCV (RBC) [Entitic vol] 97.7 fL High 80.0-94.0 [facility] ([place]) Comment on above: Performed By: #### L IP, GFR, ANEU, ESR, YASMANY, ADIFF, CRP, CBC, CMP #### [address] [address] Platelet 311 10 3/mcL Normal 130-400 [facility] ([place]) Comment on above: Performed By: #### L IP, GFR, ANEU, ESR, YASMANY, ADIFF, CRP, CBC, CMP #### [address] [address] Platelet mean volume (Bld) [Entitic vol] 10.2 fL Normal 7.4-10.4 [facility] ([place]) Comment on above: Performed By: #### L IP, GFR, ANEU, ESR, YASMANY, ADIFF, CRP, CBC, CMP #### [address] [address] RBC 4.18 10 6/mcL Low 4.20-5.40 [facility] ([place]) Comment on above: Performed By: #### L IP, GFR, ANEU, ESR, YASMANY, ADIFF, CRP, CBC, CMP #### [address] [address] WBC 9.5 10 3/mcL Normal 4.6-10.8 [facility] ([place]) Comment on above: Performed By: #### L IP, GFR, ANEU, ESR, YASMANY, ADIFF, CRP, CBC, CMP #### [address] [address] LABORATORYOrdered By: SYSTEM SYSTEM on 11-25-2023 Basophil, Absolute 0.0 103/mcL Normal 0.0 - 0.2 10^3/mcL AO Workflow SS Basophils/100 WBC (Bld) 0.3 % Normal 0.0 - 2.5 % AO Workflow SS Eosinophil, Absolute 0.1 103/mcL Normal 0.0 - 0 .4 10^3/mcL AO Workflow SS Eosinophils/100 WBC (Bld) 1.1 % Normal 0.0 - 7.0 % AO Workflow SS Lipase [Catalytic activity/Vol] U/L 1 High 16 - 77 U/L AO ADM SS Lymphocyte, Absolute 1.0 103/mcL Normal 0.8 - 3 .9 10^3/mcL AO Workflow SS Lymphocytes/100 WBC (Bld) 10.4 % Normal 10.0 - 50.0 % AO Workflow SS Monocyte, Absolute 0.5 103/mcL Normal 0.2 - 1.0 10^3/mcL AO Workflow SS Monocytes/100 WBC (Bld) 5.0 % Normal 1.7 - 13.0 % AO Workflow SS Neutrophil, Absolute 7.9 103/mcL High 2.9 - 6 .2 10^3/mcL AO Workflow SS Neutrophils/100 WBC (Bld) 83.2 % High 37.0 - 80.0 % AO Workflow SS LIPon 11-25-2023 Lipase Level >375 High 16-77 [facility] ([place]) Comment on above: Performed By: #### L IP, GFR, ANEU, ESR, YASMANY, ADIFF, CRP, CBC, CMP #### [address] [address] MGon 11-25-2023 Magnesium [Mass/Vol] 2.0 mg/dL Normal 1.8-2.4 [facility] ([place]) Comment on above: Performed By: #### L IP, GFR, ANEU, ESR, YASMANY, ADIFF, CRP, CBC, CMP #### [address] [address] .Auto Diffon 11-24-2023 Basophil, Absolute 0.0 10 3/mcL Normal 0.0-0.2 [facility] ([place]) Comment on above: Performed By: #### L IP, GFR, ANEU, ESR, YASMANY, ADIFF, CRP, CBC, CMP #### [address] [address] Basophils/100 WBC (Bld) 0.3 % Normal 0.0-2.5 A [facility] ([place]) Comment on above: Performed By: #### L IP, GFR, ANEU, ESR, YASMANY, ADIFF, CRP, CBC, CMP #### [address] [address] Eosinophil, Absolute 0.1 10 3/mcL Normal 0.0-0.4 [facility] ([place]) Comment on above: Performed By: #### L IP, GFR, ANEU, ESR, YASMANY, ADIFF, CRP, CBC, CMP #### [address] [address] Eosinophils/100 WBC (Bld) 0.8 % Normal 0.0-7.0 [facility] ([place]) Comment on above: Performed By: #### L IP, GFR, ANEU, ESR, YASMANY, ADIFF, CRP, CBC, CMP #### [address] [address] Lymphocyte, Absolute 0.9 10 3/mcL Normal 0.8-3.9 [facility] ([place]) Comment on above: Performed By: #### L IP, GFR, ANEU, ESR, YASMANY, ADIFF, CRP, CBC, CMP #### [address] [address] Lymphocytes/100 WBC (Bld) 6.2 % Low 10.0-50.0 [facility] ([place]) Comment on above: Performed By: #### L IP, GFR, ANEU, ESR, YASMANY, ADIFF, CRP, CBC, CMP #### [address] [address] Monocyte, Absolute 0.7 10 3/mcL Normal 0.2-1.0 [facility] ([place]) Comment on above: Performed By: #### L IP, GFR, ANEU, ESR, YASMANY, ADIFF, CRP, CBC, CMP #### [address] [address] Monocytes/100 WBC (Bld) 4.8 % Normal 1.7-13.0 A [facility] ([place]) Comment on above: Performed By: #### L IP, GFR, ANEU, ESR, YASMANY, ADIFF, CRP, CBC, CMP #### [address] [address] Neutrophils/100 WBC (Bld) 87.9 % High 37.0-80.0 [facility] ([place]) Comment on above: Performed By: #### L IP, GFR, ANEU, ESR, YASMANY, ADIFF, CRP, CBC, CMP #### [address] [address] .GFRon 11-24-2023 GFR Non- 100 ml/min/1.73sqm Normal [facility] ([place]) Comment on above: Result Comment: GFR Population mean for , Non- Americans Ages 20-29 = 116 mL/min/1.73 sq.m. Ages 30-39 = 107 mL/min/1.73 sq.m. Ages 40-49 = 99 mL/min/1.73 sq.m. Ages 50-59 = 93 mL/min/1.73 sq.m. Ages 60-69 = 85 mL/min/1.73 sq.m. Ages 70+ = 75 mL/min/1.73 sq.m. Chronic Kidney Disease: Less than 60 mL/min/1.73 square meters End Stage Renal Disease: Less than 15 mL/min/1.73 square meters Performed By: #### G FR, LIP, BMP, MG #### [address] [address] GFR 122 ml/min/1.73sqm Normal [facility] ([place]) Comment on above: Result Comment: GFR Population mean for , Non- Americans Ages 20-29 = 116 mL/min/1.73 sq.m. Ages 30-39 = 107 mL/min/1.73 sq.m. Ages 40-49 = 99 mL/min/1.73 sq.m. Ages 50-59 = 93 mL/min/1.73 sq.m. Ages 60-69 = 85 mL/min/1.73 sq.m. Ages 70+ = 75 mL/min/1.73 sq.m. Chronic Kidney Disease: Less than 60 mL/min/1.73 square meters End Stage Renal Disease: Less than 15 mL/min/1.73 square meters Performed By: #### G FR, LIP, BMP, MG #### [address] [address] .NEUABSon 11-24-2023 Neutrophil, Absolute 12.6 10 3/mcL High 2.9-6.2 A [facility] ([place] Comment on above: Performed By: #### L IP, GFR, ANEU, ESR, YASMANY, ADIFF, CRP, CBC, CMP #### [address] [address] BMPon 11-24-2023 BUN/Creatinine Ratio 16 ratio Normal 7-27 [facility] ([place]) Comment on above: Performed By: #### L IP, GFR, ANEU, ESR, YASMANY, ADIFF, CRP, CBC, CMP #### [address] [address] Calcium [Mass/Vol] 8.1 mg/dL Low 8.4-10.2 [facility] ([place]) Comment on above: Performed By: #### L IP, GFR, ANEU, ESR, YASMANY, ADIFF, CRP, CBC, CMP #### [place] [address] Chloride [Moles/Vol] 101 mmol/L Normal 98-107 [facility] ([place]) Comment on above: Performed By: #### L IP, GFR, ANEU, ESR, YASMANY, ADIFF, CRP, CBC, CMP #### [place] [address] CO2 [Moles/Vol] 25 mmol/L Normal 22-29 [facility] ([place]) Comment on above: Performed By: #### L IP, GFR, ANEU, ESR, YASMANY, ADIFF, CRP, CBC, CMP #### [place] [address] Creatinine [Mass/Vol] 0.68 mg/dL Normal 0.55-1.02 [facility] ([place] Comment on above: Performed By: #### L IP, GFR, ANEU, ESR, YASMANY, ADIFF, CRP, CBC, CMP #### [address] [address] Electrolyte Balance 12.0 mEq/L Normal 4.0-15.0 [facility] ([place] Comment on above: Performed By: #### L IP, GFR, ANEU, ESR, YASMANY, ADIFF, CRP, CBC, CMP #### [place] [address] Glucose [Mass/Vol] 107 mg/dL High 70-105 [facility] ([place]) Comment on above: Performed By: #### L IP, GFR, ANEU, ESR, YASMANY, ADIFF, CRP, CBC, CMP #### [place] [id number] Potassium [Moles/Vol] 3.9 mmol/L Normal 3.5-5.1 [facility] ([place] Comment on above: Performed By: #### L IP, GFR, ANEU, ESR, YASMANY, ADIFF, CRP, CBC, CMP #### [address] [address] Sodium [Moles/Vol] 138 mmol/L Normal 136-145 [facility] ([place]) Comment on above: Performed By: #### L IP, GFR, ANEU, ESR, YASMANY, ADIFF, CRP, CBC, CMP #### [address] [address] Urea nitrogen [Mass/Vol] 11 mg/dL Normal 7-18 [facility] ([place]) Comment on above: Performed By: #### L IP, GFR, ANEU, ESR, YASMANY, ADIFF, CRP, CBC, CMP #### [address] [address] CBCon 11-24-2023 Erythrocyte distribution width (RBC) [Ratio] 14.9 % High 11.5-14.5 [facility] ([place] Comment on above: Performed By: #### L IP, GFR, ANEU, ESR, YASMANY, ADIFF, CRP, CBC, CMP #### [address] [address] Hematocrit (Bld) [Volume fraction] 39.7 % Normal 37.0-47.0 [facility] ([place] Comment on above: Performed By: #### L IP, GFR, ANEU, ESR, YASMANY, ADIFF, CRP, CBC, CMP #### [address] [address] Hgb 13.5 G/dL Normal 12.0-16.0 [facility] ([place] Comment on above: Performed By: #### L IP, GFR, ANEU, ESR, YASMANY, ADIFF, CRP, CBC, CMP #### [address] [address] MCH (RBC) [Entitic mass] 32.8 pg High 27.0-31.2 [facility] ([place] Comment on above: Performed By: #### L IP, GFR, ANEU, ESR, YASMANY, ADIFF, CRP, CBC, CMP #### [address] [address] MCHC 34.0 G/dL Normal 33.0-37.0 [facility] ([place] Comment on above: Performed By: #### L IP, GFR, ANEU, ESR, YASMANY, ADIFF, CRP, CBC, CMP #### [address] [address] MCV (RBC) [Entitic vol] 96.3 fL High 80.0-94.0 A [facility] ([place] Comment on above: Performed By: #### L IP, GFR, ANEU, ESR, YASMANY, ADIFF, CRP, CBC, CMP #### [address] [address] Platelet 286 10 3/mcL Normal 130-400 [facility] ([place] Comment on above: Performed By: #### L IP, GFR, ANEU, ESR, YASMANY, ADIFF, CRP, CBC, CMP #### [address] [address] Platelet mean volume (Bld) [Entitic vol] 9.9 fL Normal 7.4-10.4 [facility] ([place] Comment on above: Performed By: #### L IP, GFR, ANEU, ESR, YASMANY, ADIFF, CRP, CBC, CMP #### [address] [address] RBC 4.12 10 6/mcL Low 4.20-5.40 [facility] ([place]) Comment on above: Performed By: #### L IP, GFR, ANEU, ESR, YASMANY, ADIFF, CRP, CBC, CMP #### [address] [address] WBC 14.3 10 3/mcL High 4.6-10.8 [facility] ([place]) Comment on above: Performed By: #### L IP, GFR, ANEU, ESR, YASMANY, ADIFF, CRP, CBC, CMP #### [address] [address] HFPon 11-24-2023 Bili Indirect 1.0 mg/dL Normal [facility] ([place] Comment on above: Performed By: #### G FR, LIP, BMP, MG #### [address] [address] Albumin Level 2.6 G/dL Low 3.5-5.0 [facility] ([place]) Comment on above: Performed By: #### G FR, LIP, BMP, MG #### [address] [address] Albumin/Globulin [Mass ratio] 0.8 {ratio} Low 1.1-2.5 [facility] ([place] Comment on above: Performed By: #### G FR, LIP, BMP, MG #### [place] [id number] ALP [Catalytic activity/Vol] 101 U/L Normal 40-135 [facility]) Comment on above: Performed By: #### G FR, LIP, BMP, MG #### [place] [id number] ALT [Catalytic activity/Vol] 17 U/L Normal 14-59 [facility]) Comment on above: Performed By: #### G FR, LIP, BMP, MG #### [address] [address] AST [Catalytic activity/Vol] 18 U/L Normal 10-40 [facility] ([place] Comment on above: Performed By: #### G FR, LIP, BMP, MG #### [address] [address] Bili Direct 0.3 mg/dL High 0.0-0.2 [facility] [place] Comment on above: Result Comment: Use of this assay is not recommended for patients undergoing treatment with eltrombopag due to the potential for falsely elevated results. Performed By: #### G FR, LIP, BMP, MG #### [place] [id number] [place], [place] [address] Bili Total 1.2 mg/dL High 0.2-1.0 [facility] ([place] Comment on above: Result Comment: Use of this assay is not recommended for patients undergoing treatment with eltrombopag due to the potential for falsely elevated results. Performed By: #### G FR, LIP, BMP, MG #### [address] [address] Globulin 3.1 G/dL Normal [facility] ([place] Comment on above: Performed By: #### G FR, LIP, BMP, MG #### [address] [address] Total Protein 5.7 G/dL Low 6.4-8.2 [facility] ([place]) Comment on above: Performed By: #### G FR, LIP, BMP, MG #### [address] [address] LABORATORYOrdered By: SYSTEM SYSTEM on 11-24-2023 Albumin BCP dye [Mass/Vol] 2.6 G/dL Low 3.5 - 5.0 G/dL AO ADM SS Albumin/Globulin [Mass ratio] 0.8 {ratio} Low 1.1 - 2.5 ratio AO ADM SS ALP [Catalytic activity/Vol] 101 U/L Normal 40 - 135 U/L AO ADM SS ALT With P-5'-P [Catalytic activity/Vol] 17 U/L Normal 14 - 59 U/L AO ADM SS AST With P-5'-P [Catalytic activity/Vol] 18 U/L Normal 10 - 40 U/L AO ADM SS Bilirubin [Mass/Vol] 1.2 mg/dL High 0.2 - 1 .0 mg/dL AO ADM SS Comment on above: Interpretive Data: U se of this assay is not recommended for patients undergoing treatment with eltrombopag due to the potential for falsely elevated results. Bilirubin.direct [Mass/Vol] 0.3 mg/dL High 0.0 - 0.2 mg/dL AO ADM SS Comment on above: Interpretive Data: U se of this assay is not recommended for patients undergoing treatment with eltrombopag due to the potential for falsely elevated results. Bilirubin.direct [Mass/Vol] 1.0 mg/dL Invalid Interpretation Code AO Chemistry S Globulin 3.1 G/dL Invalid Interpretation Code AO ADM SS Protein [Mass/Vol] 5.7 G/dL Low 6.4 - 8.2 G/dL AO ADM SS LABORATORYOrdered By: Phuong Nolan on 11-24-2023 Cholesterol [Mass/Vol] 172 mg/dL Normal 0 - 2 00 mg/dL AO ADM SS Comment on above: Interpretive Data: C holesterol Reference Interval: Less than 200 Desirable 200-239 Borderline high risk 240 and above High risk Cholesterol in HDL [Mass/Vol] 28 mg/dL Low 40 - 60 mg/dL AO ADM SS Cholesterol in LDL [Mass/Vol] 78 mg/dL Normal 0 - 130 mg/dL AO ADM SS Triglyceride [Mass/Vol] 332 mg/dL High 0 - 150 mg/dL AO ADM SS Comment on above: Interpretive Data: T riglyceride Reference Interval: Less than 150 Normal 150-199 Borderline high risk 200-499 High risk 500 or higher Very high risk LIPon 11-24-2023 Lipase Level >375 High 16-77 [facility] ([place] Comment on above: Performed By: #### G FR, LIP, BMP, MG #### [address] [address] LIPIDon 11-24-2023 Cholesterol [Mass/Vol] 172 mg/dL Normal 0-200 [facility] ([place]) Comment on above: Result Comment: Chol esterol Reference Interval: Less than 200 Desirable 200-239 Borderline high risk 240 and above High risk Performed By: #### G FR, LIP, BMP, MG #### [address] [address] Cholesterol in HDL [Mass/Vol] 28 mg/dL Low 40-60 [facility] ([place] Comment on above: Performed By: #### G FR, LIP, BMP, MG #### [place] [address] [place], [place] [address] Cholesterol in LDL [Mass/Vol] 78 mg/dL Normal 0-130 [facility] ([place] Comment on above: Performed By: #### G FR, LIP, BMP, MG #### [address] [address] Triglyceride [Mass/Vol] 332 mg/dL High 0-150 A [facility] ([place] Comment on above: Result Comment: Trig lyceride Reference Interval: Less than 150 Normal 150-199 Borderline high risk 200-499 High risk 500 or higher Very high risk Performed By: #### G FR, LIP, BMP, MG #### [address] [address] MGon 11-24-2023 Magnesium [Mass/Vol] 1.3 mg/dL Low 1.8-2.4 [facility] ([place] Comment on above: Performed By: #### G FR, LIP, BMP, MG #### [address] [address] .Auto Diffon 11-23-2023 Basophil, Absolute 0.1 10 3/mcL Normal 0.0-0.2 [facility] ([place] Comment on above: Performed By: #### L IP, GFR, ANEU, ESR, YASMANY, ADIFF, CRP, CBC, CMP #### [address] [address] Basophils/100 WBC (Bld) 0.4 % Normal 0.0-2.5 A [facility] ([place] Comment on above: Performed By: #### L IP, GFR, ANEU, ESR, YASMANY, ADIFF, CRP, CBC, CMP #### [address] [address] Eosinophil, Absolute 0.0 10 3/mcL Normal 0.0-0.4 [facility] ([place] Comment on above: Performed By: #### L IP, GFR, ANEU, ESR, YASMANY, ADIFF, CRP, CBC, CMP #### [address] [address] Eosinophils/100 WBC (Bld) 0.0 % Normal 0.0-7.0 [facility] ([place] Comment on above: Performed By: #### L IP, GFR, ANEU, ESR, YASMANY, ADIFF, CRP, CBC, CMP #### [address] [address] Lymphocyte, Absolute 1.2 10 3/mcL Normal 0.8-3.9 [facility] ([place] Comment on above: Performed By: #### L IP, GFR, ANEU, ESR, YASMANY, ADIFF, CRP, CBC, CMP #### [address] [address] Lymphocytes/100 WBC (Bld) 6.7 % Low 10.0-50.0 [facility] ([place] Comment on above: Performed By: #### L IP, GFR, ANEU, ESR, YASMANY, ADIFF, CRP, CBC, CMP #### [address] [address] Monocyte, Absolute 0.5 10 3/mcL Normal 0.2-1.0 [facility] ([place] Comment on above: Performed By: #### L IP, GFR, ANEU, ESR, YASMANY, ADIFF, CRP, CBC, CMP #### [address] [address] Monocytes/100 WBC (Bld) 3.1 % Normal 1.7-13.0 A [facility] ([place] Comment on above: Performed By: #### L IP, GFR, ANEU, ESR, YASMANY, ADIFF, CRP, CBC, CMP #### [address] [address] Neutrophils/100 WBC (Bld) 89.8 % High 37.0-80.0 [facility] ([place] Comment on above: Performed By: #### L IP, GFR, ANEU, ESR, YASMANY, ADIFF, CRP, CBC, CMP #### [address] [address] .GFRon 11-23-2023 GFR Non- 67 ml/min/1.73sqm Normal [facility] ([place] Comment on above: Result Comment: GFR Population mean for , Non- Americans Ages 20-29 = 116 mL/min/1.73 sq.m. Ages 30-39 = 107 mL/min/1.73 sq.m. Ages 40-49 = 99 mL/min/1.73 sq.m. Ages 50-59 = 93 mL/min/1.73 sq.m. Ages 60-69 = 85 mL/min/1.73 sq.m. Ages 70+ = 75 mL/min/1.73 sq.m. Chronic Kidney Disease: Less than 60 mL/min/1.73 square meters End Stage Renal Disease: Less than 15 mL/min/1.73 square meters Performed By: #### L IP, GFR, ANEU, ESR, YASMANY, ADIFF, CRP, CBC, CMP #### [address] [address] GFR 81 ml/min/1.73sqm Normal [facility] ([place] Comment on above: Result Comment: GFR Population mean for , Non- Americans Ages 20-29 = 116 mL/min/1.73 sq.m. Ages 30-39 = 107 mL/min/1.73 sq.m. Ages 40-49 = 99 mL/min/1.73 sq.m. Ages 50-59 = 93 mL/min/1.73 sq.m. Ages 60-69 = 85 mL/min/1.73 sq.m. Ages 70+ = 75 mL/min/1.73 sq.m. Chronic Kidney Disease: Less than 60 mL/min/1.73 square meters End Stage Renal Disease: Less than 15 mL/min/1.73 square meters Performed By: #### L IP, GFR, ANEU, ESR, YASMANY, ADIFF, CRP, CBC, CMP #### [address] [address] .MDWon 11-23-2023 Monocyte Distribution Width 20.71 High 0.00-20.00 [facility] ([place] Comment on above: Result Comment: For adults in ED, MDW>20.0 may be associated with a higher risk of sepsis during the first 12hrs of hospital admission Performed By: #### L IP, GFR, ANEU, ESR, YASMANY, ADIFF, CRP, CBC, CMP #### [address] [address] .NEUABSon 11-23-2023 Neutrophil, Absolute 15.7 10 3/mcL High 2.9-6.2 [facility] ([place]) Comment on above: Performed By: #### L IP, GFR, ANEU, ESR, YASMANY, ADIFF, CRP, CBC, CMP #### [place] [address] .Urinalysis Microscopic (AO) on 11-23-2023 UA RBC None Seen Normal None Seen [facility] ([place] Comment on above: Performed By: #### L IP, GFR, ANEU, ESR, YASMANY, ADIFF, CRP, CBC, CMP #### [place] [address] UA Squam Epithelial LOADED Abnormal None Seen [facility] ([place] Comment on above: Performed By: #### L IP, GFR, ANEU, ESR, YASMANY, ADIFF, CRP, CBC, CMP #### [place] [address] UA WBC 0-5 Abnormal None Seen [facility] ([place] Comment on above: Performed By: #### L IP, GFR, ANEU, ESR, YASMANY, ADIFF, CRP, CBC, CMP #### [place] [address] CBCon 11-23-2023 Erythrocyte distribution width (RBC) [Ratio] 14.5 % Normal 11.5-14.5 [facility]) Comment on above: Performed By: #### L IP, GFR, ANEU, ESR, YASMANY, ADIFF, CRP, CBC, CMP #### [place] [address] Hematocrit (Bld) [Volume fraction] 40.5 % Normal 37.0-47.0 [facility] ([place] Comment on above: Performed By: #### L IP, GFR, ANEU, ESR, YASMANY, ADIFF, CRP, CBC, CMP #### [place] [address] Hgb 14.0 G/dL Normal 12.0-16.0 [facility] ([place] Comment on above: Performed By: #### L IP, GFR, ANEU, ESR, YASMANY, ADIFF, CRP, CBC, CMP #### [address] [address] MCH (RBC) [Entitic mass] 33.1 pg High 27.0-31.2 [facility] ([place] Comment on above: Performed By: #### L IP, GFR, ANEU, ESR, YASMANY, ADIFF, CRP, CBC, CMP #### [address] [address] MCHC 34.6 G/dL Normal 33.0-37.0 [facility] ([place] Comment on above: Performed By: #### L IP, GFR, ANEU, ESR, YASMANY, ADIFF, CRP, CBC, CMP #### [address] [address] MCV (RBC) [Entitic vol] 95.6 fL High 80.0-94.0 A [facility] ([place] Comment on above: Performed By: #### L IP, GFR, ANEU, ESR, YASMANY, ADIFF, CRP, CBC, CMP #### [address] [address] Platelet 355 10 3/mcL Normal 130-400 [facility] ([place] Comment on above: Performed By: #### L IP, GFR, ANEU, ESR, YASMANY, ADIFF, CRP, CBC, CMP #### [address] [address] Platelet mean volume (Bld) [Entitic vol] 10.3 fL Normal 7.4-10.4 [facility] ([place] Comment on above: Performed By: #### L IP, GFR, ANEU, ESR, YASMANY, ADIFF, CRP, CBC, CMP #### [address] [address] RBC 4.24 10 6/mcL Normal 4.20-5.40 [facility] ([place]) Comment on above: Performed By: #### L IP, GFR, ANEU, ESR, YASMANY, ADIFF, CRP, CBC, CMP #### [address] [address] WBC 17.5 10 3/mcL High 4.6-10.8 [facility] ([place]) Comment on above: Performed By: #### L IP, GFR, ANEU, ESR, YASMANY, ADIFF, CRP, CBC, CMP #### [address] [address] CMPon 11-23-2023 Albumin Level 3.6 G/dL Normal 3.5-5.0 [facility] ([place]) Comment on above: Order Comment: speci men hemolyzed Performed By: #### L IP, GFR, ANEU, ESR, YASMANY, ADIFF, CRP, CBC, CMP #### [address] [address] Albumin/Globulin [Mass ratio] 1.0 {ratio} Low 1.1-2.5 [facility] ([place] Comment on above: Order Comment: speci men hemolyzed Performed By: #### L IP, GFR, ANEU, ESR, YASMANY, ADIFF, CRP, CBC, CMP #### [address] [address] ALP [Catalytic activity/Vol] 121 U/L Normal 40-135 [facility] ([place] Comment on above: Order Comment: speci men hemolyzed Performed By: #### L IP, GFR, ANEU, ESR, YASMANY, ADIFF, CRP, CBC, CMP #### [address] [address] ALT [Catalytic activity/Vol] 18 U/L Normal 14-59 [facility] ([place] Comment on above: Order Comment: speci men hemolyzed Performed By: #### L IP, GFR, ANEU, ESR, YASMANY, ADIFF, CRP, CBC, CMP #### [address] [address] AST [Catalytic activity/Vol] 24 U/L Normal 10-40 [facility] ([place] Comment on above: Order Comment: speci men hemolyzed Performed By: #### L IP, GFR, ANEU, ESR, YASMANY, ADIFF, CRP, CBC, CMP #### [address] [address] Bili Total 0.6 mg/dL Normal 0.2-1.0 [facility] ([place] Comment on above: Order Comment: speci men hemolyzed Result Comment: Use of this assay is not recommended for patients undergoing treatment with eltrombopag due to the potential for falsely elevated results. Performed By: #### L IP, GFR, ANEU, ESR, YASMANY, ADIFF, CRP, CBC, CMP #### [address] [address] BUN/Creatinine Ratio 9 ratio Normal 7-27 [facility] ([place] Comment on above: Order Comment: speci men hemolyzed Performed By: #### L IP, GFR, ANEU, ESR, YASMANY, ADIFF, CRP, CBC, CMP #### [address] [address] Calcium [Mass/Vol] 8.9 mg/dL Normal 8.4-10.2 [facility] ([place] Comment on above: Order Comment: speci men hemolyzed Performed By: #### L IP, GFR, ANEU, ESR, YASMANY, ADIFF, CRP, CBC, CMP #### [address] [address] Chloride [Moles/Vol] 101 mmol/L Normal 98-107 [facility] ([place] Comment on above: Order Comment: speci men hemolyzed Performed By: #### L IP, GFR, ANEU, ESR, YASMANY, ADIFF, CRP, CBC, CMP #### [address] [address] CO2 [Moles/Vol] 24 mmol/L Normal 22-29 [facility] ([place]) Comment on above: Order Comment: speci men hemolyzed Performed By: #### L IP, GFR, ANEU, ESR, YASMANY, ADIFF, CRP, CBC, CMP #### [address] [address] Creatinine [Mass/Vol] 0.97 mg/dL Normal 0.55-1.02 [facility] ([place] Comment on above: Order Comment: speci men hemolyzed Performed By: #### L IP, GFR, ANEU, ESR, YASMANY, ADIFF, CRP, CBC, CMP #### [address] [address] Electrolyte Balance 15.0 mEq/L Normal 4.0-15.0 [facility] ([place] Comment on above: Order Comment: speci men hemolyzed Performed By: #### L IP, GFR, ANEU, ESR, YASMANY, ADIFF, CRP, CBC, CMP #### [address] [address] Globulin 3.6 G/dL Normal [facility] ([place] Comment on above: Order Comment: speci men hemolyzed Performed By: #### L IP, GFR, ANEU, ESR, YASMANY, ADIFF, CRP, CBC, CMP #### [address] [address] Glucose [Mass/Vol] 146 mg/dL High 70-105 [facility] ([place] Comment on above: Order Comment: speci men hemolyzed Performed By: #### L IP, GFR, ANEU, ESR, YASMANY, ADIFF, CRP, CBC, CMP #### [address] [address] Potassium [Moles/Vol] 5.9 mmol/L High 3.5-5.1 [facility] ([place] Comment on above: Order Comment: speci men hemolyzed Performed By: #### L IP, GFR, ANEU, ESR, YASMANY, ADIFF, CRP, CBC, CMP #### [address] [address] Sodium [Moles/Vol] 140 mmol/L Normal 136-145 [facility] ([place] Comment on above: Order Comment: speci men hemolyzed Performed By: #### L IP, GFR, ANEU, ESR, YASMANY, ADIFF, CRP, CBC, CMP #### [address] [address] Total Protein 7.2 G/dL Normal 6.4-8.2 [facility] ([place]) Comment on above: Order Comment: speci men hemolyzed Performed By: #### L IP, GFR, ANEU, ESR, YASMANY, ADIFF, CRP, CBC, CMP #### [facility] [address] [place], [place] [address] Urea nitrogen [Mass/Vol] 9 mg/dL Normal 7-18 [facility] ([place] Comment on above: Order Comment: speci men hemolyzed Performed By: #### L IP, GFR, ANEU, ESR, YASMANY, ADIFF, CRP, CBC, CMP #### [facility] [address] [place], [place] [address] CT ABD/PELVIS W/ IV CONTRAST ONLYon 11-23-2023 CT ABD/PELVIS W/ IV CONTRAST ONLY ORIGINAL EXAMINATION: CT OF THE ABDOMEN AND PELVIS WITH CONTRAST11/23/2023 1:24 pm TECHNIQUE: CT of the abdomen and pelvis was performed with the administration of intravenous contrast. Multiplanar reformatted images are provided for review. Automated exposure control, iterative reconstruction, and/or weight based adjustment of the mA/kV was utilized to reduce the radiation dose to as low as reasonably achievable. COMPARISON: None HISTORY: ORDERING SYSTEM PROVIDED HISTORY: Reason for Exam: pain. Upper abdominal pain since this morning. FINDINGS: Limited images of the lower thorax are noncontributory. A 1.1 cm hypodense lesion is seen within the right hepatic lobe and possibly represents a hepatic cyst. Heterogenous enhancement of the liver may be due to areas of fatty infiltration, LEXIS, or possible developing fibrosis. There is mild peripancreatic fat stranding and edema with fluid tracking along the anterior pararenal space. Cholecystectomy with surgical clips. The spleen and bilateral adrenal glands are unremarkable. The kidneys are unremarkable. The urinary bladder and uterus are unremarkable. No pathologically enlarged inguinal or pelvic lymph nodes. There is wall thickening enhancement, and adjacent fat stranding to the terminal ileum. The nondistended colon otherwise is normal in appearance. The appendix is unremarkable. Numerous prominent mesenteric lymph nodes with the largest measuring up to 9 mm (series 3, image 79). No free intraperitoneal air. No acute osseous findings. The aorta is normal in caliber. There is no visible fracture or aggressive osseous lesion. IMPRESSION: 1. Findings compatible with acute uncomplicated pancreatitis. 2. Mucosal thickening and enhancement of the terminal ileum concerning for inflammatory bowel disease such as Crohn's. 3. Possible hepatic cyst adjacent to the falciform ligament versus fatty infiltration. Consider outpatient ultrasound follow-up for further evaluation. 4. Heterogenous appearance of the liver as described above. Consider correlation with LFTs. REPORT CORRECTION CORRECTION: Changed thickening enhancement of bowel to the terminal ileum rather than colon. Added details in relation to the liver as above. Pancreas findings are unchanged. TIME: 1420 I have personally reviewed the images of this examination and edited the preliminary report. Interpreted by: Ghanshyam Lazcano MD Preliminary Report By: Roberto Priest Electronically signed By Ghanshyam Lazcano MD Dictated Date: 11/23/2023 1:25:37 PM Prelim Date: 11/23/2023 2:21:19 PM Sign Date: 11/23/2023 2:21:19 PM Ordering Provider: MORRIS CHISHOLM [facility] ([place]) LABORATORYOrdered By: Dre Haq on 11-23-2023 Appearance (U) Clear (11/23/23 12:25 PM) Normal Clear AO Auto Urine SS Bilirubin Ql (U) Small *ABN* (11/23/23 12:25 PM) Invalid Interpretation Code Negative AO Auto Urine SS Color (U) Yellow (11/23/23 12:25 PM) Normal AO Auto Urine SS Glucose Test strip (U) [Mass/Vol] Negative Normal Negative AO Auto Urine SS HCG ( test) Ql Negative (11/23/23 12:25 PM) Normal AO Manual Urine SS Hemoglobin Auto test strip (U) [Mass/Vol] Negative (11/23/23 12:25 PM) Normal Negative AO Auto Urine SS Ketones Ql (U) Negative Normal Negative AO Auto Ur ine SS test (u) int Not detected Invalid Interpretation Code AO Manual Urine SS UA Leuk Est Negative (11/23/23 12:25 PM) Normal Negative AO Auto Urine SS UA Nitrite Negative (11/23/23 12:25 PM) Normal Negative AO Auto Urine SS UA pH 6.5 (11/23/23 12:25 PM) Normal 5.0 - 8.0 AO Auto Urine SS UA Protein 30 mg/dL Normal Negative AO Auto Urine SS UA RBC None Seen /HPF Normal None Seen AO Auto Ur ine SS UA Spec Grav >=1.030 *ABN* (11/23/23 12:25 PM) Invalid Interpretation Code 1.015-1.025 AO Auto Urine SS UA Specimen Type Clean Catch (11/23/23 12:25 PM) Normal AO Auto Urine SS UA Squam Epithelial LOADED /HPF Invalid Interpretation Code None Seen AO Auto Urine SS UA Urobilinogen 0.2 E.U./dL Normal 0.2-1.0 AO Auto Urine SS WBC LM.HPF (Urine sed) [#/Area] 0-5 /HPF Invalid Interpretation Code None Seen AO Auto Urine SS LABORATORYOrdered By: SYSTEM SYSTEM on 11-23-2023 Albumin BCP dye [Mass/Vol] 3.6 G/dL Normal 3.5 - 5.0 G/dL AO ADM SS Albumin/Globulin [Mass ratio] 1.0 {ratio} Low 1.1 - 2.5 ratio AO ADM SS ALP [Catalytic activity/Vol] 121 U/L Normal 40 - 135 U/L AO ADM SS ALT With P-5'-P [Catalytic activity/Vol] 18 U/L Normal 14 - 59 U/L AO ADM SS AST With P-5'-P [Catalytic activity/Vol] 24 U/L Normal 10 - 40 U/L AO ADM SS Bilirubin [Mass/Vol] 0.6 mg/dL Normal 0.2 - 1 .0 mg/dL AO ADM SS Comment on above: Interpretive Data: U se of this assay is not recommended for patients undergoing treatment with eltrombopag due to the potential for falsely elevated results. Globulin 3.6 G/dL Invalid Interpretation Code AO ADM SS Protein [Mass/Vol] 7.2 G/dL Normal 6.4 - 8.2 G/dL AO ADM SS Monocyte distribution width Auto (Bld) [Entitic vol] 20.71 1 High 0.00 - 20.00 AO Workflow SS Comment on above: Result Comment: For adults in ED, MDW>20.0 may be associated with a higher risk of sepsis during the first 12hrs of hospital admission LIPon 11-23-2023 Lipase Level >375 High 16 [facility] ([place]) Comment on above: Performed By: #### L IP, GFR, ANEU, ESR, YASMANY, ADIFF, CRP, CBC, CMP #### [address] [place], [place] [address] PREGUon 11-23-2023 HCG ( test) Ql (U) Negative Normal [facility] ([place] Comment on above: Performed By: #### L IP, GFR, ANEU, ESR, YASMANY, ADIFF, CRP, CBC, CMP #### [address] [address] test (u) int Not detected Invalid Interpretation Code [facility] ([place] Comment on above: Performed By: #### L IP, GFR, ANEU, ESR, YASMANY, ADIFF, CRP, CBC, CMP #### [address] [address] UAon 11-23-2023 Color (U) Yellow Normal [facility] ([place] Comment on above: Performed By: #### L IP, GFR, ANEU, ESR, YASMANY, ADIFF, CRP, CBC, CMP #### [address] [address] Glucose (U) [Mass/Vol] Negative Normal Negative [facility] ([place] Comment on above: Performed By: #### L IP, GFR, ANEU, ESR, YASMANY, ADIFF, CRP, CBC, CMP #### [address] [address] Ketones Ql (U) Negative Normal Negative [facility] ([place]) Comment on above: Performed By: #### L IP, GFR, ANEU, ESR, AYSMANY, ADIFF, CRP, CBC, CMP #### [address] [address] UA Appear Clear Normal Clear [facility] ([place] Comment on above: Performed By: #### L IP, GFR, ANEU, ESR, YASMANY, ADIFF, CRP, CBC, CMP #### [address] [address] UA Bili Small Abnormal Negative [facility] ([place] Comment on above: Performed By: #### L IP, GFR, ANEU, ESR, YASMANY, ADIFF, CRP, CBC, CMP #### [address] [address] UA Blood Negative Normal Negative [facility] ([place] Comment on above: Performed By: #### L IP, GFR, ANEU, ESR, YASMANY, ADIFF, CRP, CBC, CMP #### [address] [address] UA Leuk Est Negative Normal Negative [facility] [place] Comment [place] above: Performed By: #### L IP, GFR, ANEU, ESR, YASMANY, ADIFF, CRP, CBC, CMP #### [address] [address] UA Nitrite Negative Normal Negative [facility] ([place] Comment on above: Performed By: #### L IP, GFR, ANEU, ESR, YASMANY, ADIFF, CRP, CBC, CMP #### [address] [address] UA pH 6.5 Normal 5.0 - 8.0 [facility]) Comment on above: Performed By: #### L IP, GFR, ANEU, ESR, YASMANY, ADIFF, CRP, CBC, CMP #### [address] [address] UA Protein 30 mg/dL Normal Negative [facility] ([place] Comment on above: Performed By: #### L IP, GFR, ANEU, ESR, YASMANY, ADIFF, CRP, CBC, CMP #### [address] [address] UA Spec Grav >=1.030 Abnormal 1.015-1.025 [facility] ([place] Comment on above: Performed By: #### L IP, GFR, ANEU, ESR, YASMANY, ADIFF, CRP, CBC, CMP #### [address] [address] UA Specimen Type Clean Catch Normal [facility] ([place] Comment on above: Performed By: #### L IP, GFR, ANEU, ESR, YASMANY, ADIFF, CRP, CBC, CMP #### [address] [address] UA Urobilinogen 0.2 E.U./dL Normal 0.2-1.0 [facility] ([place] Comment on above: Performed By: #### L IP, GFR, ANEU, ESR, YASMANY, ADIFF, CRP, CBC, CMP #### [address] [address] LABORATORYOrdered By: Laura Buchanan on 09-19-2021 HCG Qn mIU/mL Invalid Interpretation Code AO ADM SS Vital Signs Date Time Vital Sign Value Performing Clinician Faci lity 04-05-2024 23:34-0400 Diastolic Blood Pressure Non-Invasive 69 mm[Hg] KATINA POMPA MD [facility] 04-05-2024 23:34-0400 Heart rate 85 /min KATINA POMPA MD [facility] 04-05-2024 23:34-0400 Mean blood pressure 78 mm[Hg] KATINA POMPA MD [facility] 04-05-2024 23:34-0400 Respiratory rate 20 /min KATINA POMPA MD [facility] 04-05-2024 23:34-0400 Systolic Blood Pressure Non-Invasive 96 mm[Hg] KATINA POMPA MD [facility] 04-05-2024 19:41-0400 Body height 157.5 cm KATINA POMPA MD [facility] 04-05-2024 19:41-0400 Body temperature 97.16 [degF] KATINA POMPA MD [facility] 04-05-2024 19:41-0400 Body weight 61.4 kg KATINA POMPA MD [facility] 04-05-2024 19:41-0400 Diastolic Blood Pressure Non-Invasive 76 mm[Hg] KATINA POMPA MD [facility] 04-05-2024 19:41-0400 Heart rate 108 /min KATINA POMPA MD [facility] 04-05-2024 19:41-0400 Respiratory rate 22 /min KATINA POMPA MD [facility] 04-05-2024 19:41-0400 Systolic Blood Pressure Non-Invasive 129 mm[Hg] KATINA POMPA MD [facility] 03-23-2024 21:23-0400 Diastolic Blood Pressure Non-Invasive 79 mm[Hg] DR DAVID ROBLES DO [facility] 03-23-2024 21:23-0400 Heart rate 105 /min DR DAVID ROBLES DO [facility] 03-23-2024 21:23-0400 Mean blood pressure 90 mm[Hg] DR DAVID ROBLES DO [facility] 03-23-2024 21:23-0400 Respiratory rate 28 /min DR DAVID ROBLES DO [facility] 03-23-2024 21:23-0400 Systolic Blood Pressure Non-Invasive 109 mm[Hg] DR DAVID ROBLES DO [facility] 03-23-2024 16:41-[address] DAVID ROBLES DO [facility] 03-23-2024 16:41-[address] DAVID ROBLES DO [facility] 03-23-2024 16:41-0400 Diastolic Blood Pressure Non-Invasive 80 mm[Hg] DR DAVID RBOLES DO [facility] 03-23-2024 16:41-0400 Heart rate 98 /min DR DAVID ROBLES DO [facility] 03-23-2024 16:41-0400 Respiratory rate 20 /min DR DAVID ROBLES DO [facility] 03-23-2024 16:41-0400 Systolic Blood Pressure Non-Invasive 124 mm[Hg] DR DAVID ROBLES DO [facility] 03-23-2024 15:40-[address] DAVID ROBLES DO [facility] 03-23-2024 15:40-[address] DAVID ROBLES DO [facility] 03-23-2024 15:40-0400 Body temperature 98.24 [degF] DR DAVID ROBLES DO [facility] 03-23-2024 15:40-0400 Body weight 60.[address] DAVID ROBLES DO [facility] 03-23-2024 15:40-0400 Diastolic Blood Pressure Non-Invasive 82 mm[Hg] DR DAVID ROBLES DO [facility] 03-23-2024 15:40-0400 Heart rate 140 /min DR DAVID ROBLES DO [facility] 03-23-2024 15:40-0400 Respiratory rate 26 /min DR DAVID ROBLES DO [facility] 03-23-2024 15:40-0400 Systolic Blood Pressure Non-Invasive 128 mm[Hg] DR DAVID ROBLES DO [facility] 03-08-2024 08:15-0400 Respiratory rate 16 /min Henry Turner MD Work Phone: [facility] 03-08-2024 08:15-0400 SaO2% (BldA) [Mass fraction] 96 % Henry Turner MD Work Phone: [facility] [employer] 03-08-2024 05:22-0400 Body temperature 96.8 [degF] Henry Turner MD Work Phone: [facility] 03-08-2024 05:22-0400 Diastolic blood pressure 57 mm[Hg] Henry Turner MD Work Phone: [facility] [employer] 03-08-2024 05:22-0400 Heart rate 57 /min Henry Turner MD Work Phone: [facility] [employer] 03-08-2024 05:22-0400 Systolic blood pressure 115 mm[Hg] Henry Turner MD Work Phone: [facility] 03-04-2024 21:14-0400 Body height 157.5 cm Henry Turner MD Work Phone: [facility] 03-04-2024 21:14-0400 Body mass index (BMI) [Ratio] 24.69 kg/m2 Henry Turner MD Work Phone: [facility] 03-04-2024 21:14-0400 Body weight 61.24 kg Henry Turner MD Work Phone: [facility] 12-02-2023 06:32-0400 Body temperature 98.6 [degF] GEORGINA MOLINA MD [facility] 12-02-2023 06:32-0400 Diastolic Blood Pressure Non-Invasive 77 mm[Hg] GEORGINA MOLINA MD [facility] 12-02-2023 06:32-0400 Heart rate 93 /min GEORGINA MOLINA MD [facility] 12-02-2023 06:32-0400 Respiratory rate 18 /min GEORGINA MOLINA MD [facility] 12-02-2023 06:32-0400 Systolic Blood Pressure Non-Invasive 114 mm[Hg] GEORGINA MOLINA MD [facility] 12-01-2023 23:25-0400 Body temperature 98.42 [degF] GEORGINA MOLINA MD [address] [place] [address] 12-01-2023 23:25-0400 Diastolic Blood Pressure Non-Invasive 79 mm[Hg] GEORGINA MOLINA MD [address] [place] [address] 12-01-2023 23:25-0400 Heart rate 94 /min GEORGINA MOLINA MD [address] [place] [address] 12-01-2023 23:25-0400 Respiratory rate 18 /min GEORGINA MOLINA MD [address] 12-01-2023 23:25-0400 Systolic Blood Pressure Non-Invasive 125 mm[Hg] GEORGINA MOLINA MD [address] 12-01-2023 14:52-0400 Body temperature 98.6 [degF] GEORGINA MOLINA MD [address] [place] [address] 12-01-2023 14:52-0400 Diastolic Blood Pressure Non-Invasive 83 mm[Hg] GEORGINA MOLINA MD [address] [place] [address] 12-01-2023 14:52-0400 Heart rate 99 /min GEORGINA MOLINA MD [address] 12-01-2023 14:52-0400 Respiratory rate 18 /min GEORGINA MOLINA MD [address] 12-01-2023 14:52-0400 Systolic Blood Pressure Non-Invasive 121 mm[Hg] GEORGINA MOLINA MD [address] [place] [address] 11-30-2023 22:09-0400 Reason For Taking VItal Signs GEORGINA MOLINA MD [address] [place] [address] 11-30-2023 19:45-0400 Reason For Taking VItal Signs GEORGINA MOLINA MD [address] [place] [address] 11-30-2023 18:25-0400 Blood Pressure Cuff Size GEORGINA MOLINA MD [facility] 11-30-2023 18:25-0400 Blood Pressure Location GEORGINA MOLINA MD [facility] 11-30-2023 18:25-0400 Blood Pressure Method GEORGINA MOLINA MD [facility] 11-30-2023 18:25-0400 Reason For Taking VItal Signs GEORGINA MOLINA MD [address] [place] [address] 11-30-2023 14:33-0400 Blood Pressure Cuff Size GEORGINA MOLINA MD [address] [place] [address] 11-30-2023 14:33-0400 Blood Pressure Location GEORGINA MOLINA MD [facility] 11-30-2023 14:33-0400 Blood Pressure Method GEORGINA MOLINA MD [address] [place] [address] 11-30-2023 04:54-0400 Heart rate 91 /min GEROGINA MOLINA MD [address] [place] [address] 11-29-2023 23:27-0400 Heart rate 96 /min GEORGINA MOLINA MD [address] [place] [address] 11-29-2023 15:08-0400 Blood Pressure Cuff Size GEORGINA MOLINA MD [facility] 11-29-2023 15:08-0400 Blood Pressure Location GEORGINA MOLINA MD [facility] 11-29-2023 15:08-0400 Blood Pressure Method GEORGINA MOLINA MD [facility] 11-28-2023 20:04-0400 Body height 157.5 cm GEORGINA MOLINA MD [facility] 11-28-2023 20:04-0400 Body weight 81.4 kg GEORGINA MOLINA MD [facility] 11-28-2023 20:04-0400 Body weight 32.81 kg/m2 GEORGINA MOLINA MD [facility] 11-28-2023 17:51-0400 Body temperature 97.88 [degF] SAMM KAPPER [employer]ING [employer] OPERATOR [employer] PROJECT MANAGER [facility] 11-28-2023 17:51-0400 Diastolic Blood Pressure Non-Invasive 91 mm[Hg] SAMM KAPPER [employer]ING WHE[employer] OPERATOR HELPER[employer]IAL [employer]IA PROJECT MANAGER [facility] 11-28-2023 17:51-0400 Heart rate 97 /min SAMM KAPPER [employer]ING WHEEL OPERATOR HELPER[employer]SOCIAL MEDIA PROJECT MANAGER [facility] 11-28-2023 17:51-0400 Reason For Taking VItal Signs SAMM KAPPER CASTING WHEEL OPERATOR HELPER[employer]SOCIAL MEDIA PROJECT MANAGER [facility] 11-28-2023 17:51-0400 Respiratory rate 20 /min SAMM KAPPER CA[employer]ING WHEEL OPERATOR HELPER[employer]SOCIAL MEDIA PROJECT MANAGER [facility] 11-28-2023 17:51-0400 Systolic Blood Pressure Non-Invasive 131 mm[Hg] SAMM KAPPER CA[employer]ING WHEEL OPERATOR HELPER-SOCIAL MEDIA PROJECT MANAGER [facility] 11-28-2023 15:25-0400 Body temperature 97.88 [degF] SAMM KAPPER CA[employer]ING WHEEL OPERATOR HELPER-SOCIAL MEDIA PROJECT MANAGER [facility] 11-28-2023 15:25-0400 Diastolic blood pressure 91 mm[Hg] SAMM KAPPER CA[employer]ING WHEEL OPERATOR HELPER[employer]SOCIAL MEDIA PROJECT MANAGER [facility] 11-28-2023 15:25-0400 Heart rate 97 /min SAMM KAPPER CA[employer]ING WHEEL OPERATOR HELPER[employer]SOCIAL MEDIA PROJECT MANAGER [facility] 11-28-2023 15:25-0400 Respiratory rate 20 /min SAMM KAPPER CA[employer]ING WHEEL OPERATOR HELPER[employer]SOCIAL [employer]IA PROJECT MANAGER [facility] 11-28-2023 15:25-0400 Systolic blood pressure 131 mm[Hg] SAMM KAPPER CA[employer]ING WHEEL OPERATOR HELPER[employer]SOCIAL MEDIA PROJECT MANAGER [facility] 11-28-2023 14:42-0400 Body temperature 97.52 [degF] SAMM ALATORREER CASTING WHEEL OPERATOR HELPER[employer]SOCIAL [employer] PROJECT MANAGER [facility] 11-28-2023 14:42-0400 Diastolic Blood Pressure Non-Invasive 71 mm[Hg] SAMM ALATORREER CASTING WHEEL OPERATOR HELPER-SOCIAL MEDIA PROJECT MANAGER [facility] 11-28-2023 14:42-0400 Heart rate 99 /min SAMMAngeline ALATORREER CASTING WHEEL OPERATOR HELPER-SOCIAL MEDIA PROJECT MANAGER [facility] 11-28-2023 14:42-0400 Reason For Taking VItal Signs SAMM DE LA CRUZ CASTING WHEEL OPERATOR HELPER-SOCIAL MEDIA PROJECT MANAGER [facility] 11-28-2023 14:42-0400 Respiratory rate 20 /min SAMM DE LA CRUZ CASTING WHEEL OPERATOR HELPER-SOCIAL MEDIA PROJECT MANAGER [facility] 11-28-2023 14:42-0400 Systolic Blood Pressure Non-Invasive 126 mm[Hg] SAMM ALATORREER CASTING WHEEL OPERATOR HELPER-SOCIAL MEDIA PROJECT MANAGER [facility] 11-28-2023 11:09-0400 Diastolic Blood Pressure Non-Invasive 71 mm[Hg] SAMM ALATORREER CASTING WHEEL OPERATOR HELPER-SOCIAL MEDIA PROJECT MANAGER [facility] 11-28-2023 11:09-0400 Heart rate 88 /min SAMM LANDRYER CASTING WHEEL OPERATOR HELPER-SOCIAL MEDIA PROJECT MANAGER [facility] 11-28-2023 11:09-0400 Systolic Blood Pressure Non-Invasive 112 mm[Hg] SAMM LANDRYER CASTING WHEEL OPERATOR HELPER-SOCIAL MEDIA PROJECT MANAGER [facility] 11-28-2023 07:52-0400 Heart rate 98 /min SAMM LANDRYER CASTING WHEEL OPERATOR HELPER-SOCIAL MEDIA PROJECT MANAGER [facility] 11-28-2023 03:39-0400 Heart rate 102 /min SAMM KAPPER CASTING WHEEL OPERATOR HELPER-SOCIAL MEDIA PROJECT MANAGER [facility] 11-28-2023 03:39-0400 Reason For Taking VItal Signs SAMM ALATORREER CASTING WHEEL OPERATOR HELPER-SOCIAL MEDIA PROJECT MANAGER [facility] 11-27-2023 23:20-0400 Heart rate 99 /min SAMM KAPPER CASTING WHEEL OPERATOR HELPER-SOCIAL MEDIA PROJECT MANAGER [facility] 11-27-2023 19:46-0400 Heart rate 101 /min SAMM KAPPER CASTING WHEEL OPERATOR HELPER-SOCIAL MEDIA PROJECT MANAGER [facility] 11-27-2023 11:14-0400 Heart rate 98 /min SAMM KAPPER CASTING WHEEL OPERATOR HELPER-SOCIAL MEDIA PROJECT MANAGER [facility] 11-26-2023 15:08-0400 Body height 157.5 cm SAMM KAPPER CASTING WHEEL OPERATOR HELPER-SOCIAL MEDIA PROJECT MANAGER [facility] 11-26-2023 15:08-0400 Body weight 70.9 kg SAMM KAPPER CASTING WHEEL OPERATOR HELPER-SOCIAL MEDIA PROJECT MANAGER [facility] 11-26-2023 15:08-0400 Body weight 28.58 kg/m2 SAMM KAPPER CASTING WHEEL OPERATOR HELPER-SOCIAL MEDIA PROJECT MANAGER [facility] 11-23-2023 17:11-0400 Body height 157.5 cm SAMM KAPPER CASTING WHEEL OPERATOR HELPER-SOCIAL MEDIA PROJECT MANAGER [facility] 11-23-2023 17:11-0400 Body weight 70.9 kg SAMM KAPPER CASTING WHEEL OPERATOR HELPER-SOCIAL MEDIA PROJECT MANAGER [facility] 11-23-2023 17:11-0400 Body weight 28.58 kg/m2 SAMM KAPPER CASTING WHEEL OPERATOR HELPER-SOCIAL MEDIA PROJECT MANAGER [facility] 11-23-2023 15:42-0400 Blood Pressure Location SAMM KAPPER CASTING WHEEL OPERATOR HELPER-SOCIAL MEDIA PROJECT MANAGER [facility] 11-23-2023 15:42-0400 Blood Pressure Method SAMM DE LA CRUZ CASTING WHEEL OPERATOR HELPER-C TAP AND DIE MAKER TECHNICIAN [facility] 11-23-2023 09:47-0400 Blood Pressure Location SAMM DE LA CRUZ CASTING WHEEL OPERATOR HELPER-SOCIAL MEDIA PROJECT MANAGER [facility] 11-23-2023 09:47-0400 Blood Pressure Method SAMM DE LA CRUZ CASTING WHEEL OPERATOR HELPER-C TAP AND DIE MAKER TECHNICIAN [facility] 09-29-2021 20:36-0400 Body temperature 97.88 [degF] DR ANTONETTE FOREMAN MD [facility] 09-29-2021 20:36-0400 Diastolic blood pressure 83 mm[Hg] DR ANTONETTE FOREMAN MD [facility] 09-29-2021 20:36-0400 Heart rate 95 /min DR ANTONETTE FOREMAN MD [facility] 09-29-2021 20:36-0400 Respiratory rate 16 /min DR ANTONETTE FOREMAN MD [facility] 09-29-2021 20:36-0400 Systolic blood pressure 140 mm[Hg] DR ANTONETTE FOREMAN MD [facility] 07-10-2021 17:23-0500 Body temperature 97.88 [degF] JOAQUÍN FALCON MD [facility] 07-10-2021 17:23-0500 Body weight 63.1 kg JOAQUÍN FALCON MD [facility] 07-10-2021 17:23-0500 Diastolic blood pressure 109 mm[Hg] JOAQUÍN FALCON MD [facility] 07-10-2021 17:23-0500 Heart rate 83 /min JOAQUÍN FALCON MD [facility] 07-10-2021 17:23-0500 Respiratory rate 18 /min JOAQUÍN FALCON MD [facility] 07-10-2021 17:23-0500 Systolic blood pressure 165 mm[Hg] JOAQUÍN FALCON MD [facility] Encounters Encounter Date Encounter Type Care Provider Facility Start: 04-05-2024 End: 04-05-2024 Emergency department patient visit KATINA POMPA MD [facility] Start: 03-23-2024 End: 03-23-2024 Emergency department patient visit DR DAVID ROBLES DO [facility] Start: 03-06-2024 End: 03-06-2024 Telephone encounter Myah Suarez PA-C Work Phone: [facility] Comment on above: Care Coordination; A ppointment Request Start: 03-04-2024 End: 03-08-2024 Evaluation and management of inpatient Henry Turner MD Work Phone: [facility] Medical Surgical Unit [facility] H5 Comment on above: Acute pancreatitis, unspecified complication status, unspecified pancreatitis type (Primary Dx) Start: 03-03-2024 End: 03-03-2024 ambulatory [facility] Facility:[facility] Start: 03-03-2024 End: 03-03-2024 Patient encounter procedure JOSE MCGHEE DO [facility] Start: 02-07-2024 End: 02-07-2024 ambulatory BERNARDA LEONARDO Facility:[facility] Start: 01-13-2024 ambulatory He Berry Facilit y:[facility] Start: 12-08-2023 End: 12-08-2023 ambulatory BERNARDA LEONARDO Facility:[facility] Start: 12-08-2023 End: 12-08-2023 Patient encounter procedure JUICE CHACKO MD [facility] Start: 11-28-2023 End: 12-02-2023 Evaluation and management of inpatient GEORGINA MOLINA MD [facility] Start: 11-23-2023 End: 11-28-2023 Evaluation and management of inpatient SAMM DE LA CRUZ CASTING WHEEL OPERATOR HELPER-SOCIAL MEDIA PROJECT MANAGER [facility] Start: 09-29-2021 End: 09-29-2021 Emergency department patient visit DR ANTONETTE FOREMAN MD [facility] Start: 09-19-2021 End: 09-19-2021 Patient encounter procedure UNA MORALES CASTING WHEEL OPERATOR HELPER-SOCIAL MEDIA PROJECT MANAGER [facility] Start: 09-05-2021 End: 09-05-2021 Patient encounter procedure NADINE DURAN CASTING WHEEL OPERATOR HELPER - SOCIAL MEDIA PROJECT MANAGER [facility] Start: 07-10-2021 End: 07-10-2021 Emergency department patient visit JOAQUÍN FALCON MD [facility] Procedures Date Procedure Procedure Detail Performing Clinician Start: 03-08-2024 Basic metabolic pane l calcium total Reeya Morena DO Work Phone: Start: 03-07-2024 Comprehensive metabo lic panel Daija Alcazar DO Work Phone: Start: 03-06-2024 Radiologic exam ches t single view Daija Alcazar DO Work Phone: Start: 03-06-2024 Comprehensive metabo lic panel Reeya Morena DO Work Phone: Start: 03-05-2024 Prothrombin time Reji Thompson DO Work Phone: Start: 03-05-2024 Us abdominal real ti me w/image limited Reeya Morena DO Work Phone: Start: 03-05-2024 Comprehensive metabo lic panel Reeneal Morena DO Work Phone: Start: 03-05-2024 Lipid panel Reji Burnette ubert DO Work Phone: Start: 03-05-2024 Lipid 1996 panel - S gary or Plasma Myah Suarez PA-C Work Phone: Start: 03-04-2024 Ct abdomen & pelvis w/contrast material Reeneal OsorioMorena DO Work Phone: Start: 03-04-2024 Assay of lactate Reeneal OsorioMorena DO Work Phone: Start: 03-04-2024 Basic metabolic pane l calcium total Henry Turner MD Work Phone: Start: 03-04-2024 Drug test def 1-7 classes Reeya Morena DO Work Phone: Start: 03-04-2024 Culture bacterial quanttative colony count urine Henry Turner MD Work Phone: Start: 03-04-2024 ETHYL GLUCURONIDE SC REEN, URINE Reeneal Moerna DO Work Phone: Start: 03-04-2024 MEDICATION ASSISTED TREATMENT PANEL Reeya Morena DO Work Phone: Start: 03-04-2024 Urinalysis complete panel - Urine Henry Turner MD Work Phone: Start: 01-17-2024 Stent, device (physi la nena object) JOSE FRIEND DO Comment on above: stent placed in smal l bowel Start: 07-19-2008 Cholecystectomy SAMM GOLDBERG PPER CASTING WHEEL OPERATOR HELPER-SOCIAL MEDIA PROJECT MANAGER Colonoscopy JUICE CHACKO MD Deliveries by joe porter (finding) JOAQUÍN FALCON MD Comment on above: 2015 None (qualifier value) JOAQUÍN FALCON MD Tonsillectomy JUICE CHACKO MD Plan of Treatment Date Care Activity Detail Author Start: 2051 RSV Immunization aged 60 or older (1 - 1-dose 60+ series) RSV Immunization aged 60 or older (1 - 1-dose 60+ series) [facility] Start: 10-03-2041 Zoster Vaccines (1 of 2) Zoster Vaccines (1 of 2) [facility] Start: 09-30-2031 DTaP/Tdap/Td Vaccines (2 - Td or Tdap) DTaP/Tdap/Td Vaccines (2 - Td or Tdap) [facility] Start: 03-05-2029 Lipid panel Lipid Panel [facility] Start: 04-28-2024 End: 04-28-2024 Patient encounter procedure 04/28/2024 10:00 AM EDT [facility] [address] [facility] [address] [place] [id number] Raghav Zambrano MD [address] [facility] [address] [place] [id number] [facility] Start: 03-19-2024 COVID-19 Vaccine ( season) COVID-19 Vaccine ( season) [facility] Start: 03-19-2024 Influenza vaccination Influenza Vaccine (#1) [facility] Start: 03-17-2024 End: 03-17-2024 Patient encounter procedure 03/17/2024 9:30 AM EDT Office Visit [facility] [address] [place] [address] Raghav Zambrano MD [address] [place] [id number] [facility] Start: 03-19-2023 COVID-19 Vaccine ( season) COVID-19 Vaccine ( season) [facility] Start: 10-03-2021 Screening for malignant neoplasm of cervix [facility] Start: 10-03-2012 Screening for malignant neoplasm of cervix Pap Smear [facility] Start: 10-03-2010 Hepatitis A Vaccines (1 of 2 - Risk 2-dose series) Hepatitis A Vaccines (1 of 2 - Risk 2-dose series) [facility] Start: 10-03-2010 Hepatitis B Vaccines (1 of 3 - 19+ 3-dose series) Hepatitis B Vaccines (1 of 3 - 19+ 3-dose series) [facility] Start: 10-03-2009 Hepatitis C screening Hepatitis C Screening [facility] Start: 10-03-2004 Varicella vaccination Varicella Vaccines (1 of 2 - 13+ 2-dose series) [facility] Start: 2003 Depression Screening Depression Screening [facility] Start: 10-03-1997 Pneumococcal Vaccine: Pediatrics (0 to 5 Years) and At-Risk Patients (6 to 64 Years) (1 of 2 - PCV) Pneumococcal Vaccine: Pediatrics (0 to 5 Years) and At-Risk Patients (6 to 64 Years) (1 of 2 - PCV) [facility] Start: 10-03-1992 MMR Vaccines (1 of 1 - Standard series) MMR Vaccines (1 of 1 - Standard series) [facility] Start: 1991 HIV screening HIV Screening [facility] End: 03-06-2024 Thyroid stimulating immunoglobulins actual/normal in Serum [facility] Work Phone: Comment on above: Once (Lab) for 1 Occurrences starting until 03/06/2024 Immunizations Immunization Date Immunization Notes Care Provider Fa cility 09-29-2021 tetanus toxoid, redu john diphtheria toxoid, and acellular pertussis vaccine, adsorbed; Translations: [Boostrix (Tdap)] DR ANTONETTE FOREMAN MD [facility] Payers Date Payer Category Payer Unknown [id number] 2024 Self-pay 2022 Medicaid [employer] UHC MEDICAID ODM [id number] 2022-Present [phone] [address] [place] [address] Medicaid HMO [id number] 2022 Private Health Insurance 103 [id number] 1991 Unknown [id number] 1991 Unknown [id number] 1991 Unknown [id number] 1991 Unknown [id number] 1991 Unknown [id number] 1991 Unknown [id number] 1991 Unknown [id number] Unknown [id number] Social History Date Type Detail Facility Start: 06-17-2021 End: 01-07-2024 Light tobacco smoker (finding) [facility] Sex Assigned At [facility] Start: 09-04-2021 Ex-smoker (finding) [facility] Start: 03-04-2024 Tobacco smoking stat [facility] Smokes tobacco daily [facility] History of tobacco use Cigarette Smoker S [facility] Start: 03-04-2024 Tobacco use and exposure Smoke less tobacco non-user [facility] Start: 03-04-2024 Alcoholic beverage intake Ex-drinker (finding) [facility] Start: 03-04-2024 History of Social function [facility] Start: 03-04-2024 Humiliation, Afraid, Rape, and Kick questionnaire [HARK] [facility] Within the last year , have you been afraid of your partner or ex-partner? No [facility] How often to you hav e a drink containing alcohol? Never [facility] How many standard dr inks containing alcohol do you have on a typical day? Patient does not drink [facility] Start: 1991 Sex assigned at Not on file S [facility] Functional Status Date Assessment Result Facility 04-05-2024 Functional Status Independent [facility] 04-05-2024 Functional Status [facility] 03-23-2024 Functional Status Independent [facility] 03-23-2024 Functional Status ID band on, Allergy Band on, Call device within reach, Bed in low position, Wheels locked, Upper/Half-Length side-rails up, Visitor at bedside, Safety level maintained [facility] 12-02-2023 Functional Status Repositioned b ack, Repositions self [facility] 12-02-2023 Functional Status Up to chair [facility] 12-02-2023 Functional Status [facility] 12-02-2023 Functional Status Room check performed [facility] 12-02-2023 Functional Status [facility] 12-02-2023 Functional Status [facility] 12-01-2023 Functional Status [facility] 12-01-2023 Functional Status [facility] 12-01-2023 Functional Status [facility] 12-01-2023 Functional Status Independent [facility] 12-01-2023 Functional Status [facility] 11-30-2023 Functional Status Dinner Percent 100 [facility] 11-30-2023 Functional Status Bijal Hansen [facility] 11-30-2023 Functional Status Done Bijal Hansen [facility] 11-29-2023 Functional Status Single level home [facility] 11-28-2023 [facility]2023 Functional Status Sensory Deficits None A [facility] 11-28-2023 Functional Status 7am-7pm [facility] Functional Status Room check performed [facility] 11-28-2023 Functional Status Bijal Hansen [facility] 11-28-2023 Functional Status Refused Bijal Hansen [facility] 11-28-2023 Functional Status Activity Alfie tance Minimum assistance [facility] 11-28-2023 Functional Status Bijal Hansen [facility] 11-27-2023 Functional Status Bijal Hansen [facility] 11-27-2023 Functional Status NPO Status Initiated [facility] 11-26-2023 Functional Status Minimum assistance [facility] 11-26-2023 Functional Status Sensory Deficits None A [facility] 11-26-2023 Functional Status Bijal Hansen [facility] 11-25-2023 Functional Status Bijal Hansen [facility] 11-24-2023 Functional Status 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, 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, Home management, Housework, Laundry, Meal preparation, Personal ADL, Shopping [facility] 11-23-2023 Functional Status Bijal Hansen [facility] Mental Status Date Assessment Result Facility 04-05-2024 Mental Status Orientation Oriented x 4 [facility] 04-05-2024 Mental Status [facility] 03-23-2024 Mental Status Orientation Oriented x 4 [facility] 03-23-2024 Mental Status [facility] 12-02-2023 Mental Status Orientation Oriented x 4 [facility] 12-01-2023 Mental Status [facility] 12-01-2023 Mental Status [facility] 11-30-2023 Mental Status Orientation Asse ssment Oriented x 4 [facility] 11-30-2023 Mental Status [facility] 11-30-2023 Mental Status [facility] 11-28-2023 Mental Status Oriented x 4 [facility] 11-27-2023 Mental Status [facility] 11-27-2023 Mental Status [facility] 11-25-2023 Mental Status [facility] 11-24-2023 Mental Status [facility] Clinical Notes 07-10-2021 to 04-07-2024 Telephone Encounter - [facility] - 04/05/2024 1:45 PM EDTTelephone Encounter - [facility] - 04/05/2024 1:45 PM EDTTelephone Encounter - Meeta Bishop - 04/05/2024 10:45 AM EDT Note Date & Type Note Facility 04-07-2024 Note . MICRO - Microbiology PROCEDURE: Urine Culture [O1 *1] SOURCE: Urine BODY SITE: COLLECTED DATE/TIME: 04/05/2024 21:15 EDT RECEIVED DATE/TIME: 04/06/2024 17:13 EDT START DATE/TIME: 04/06/2024 17:13 EDT FREE TEXT SOURCE: FINAL REPORTS Final Report [] Verified Date/Time/Personnel: 04/07/2024 14:38 EDT <10,000 cfu/ml. No Significant growth. Sensitivity not indicated. Order Comments O1: Urine Culture Added by Discern Performing Locations *1: This test was performed at: [facility], [address] [place] [address], [id number] , [facility] 04-06-2024 Hospital Discharg e instructions Patient Education 04/05/2024 23:17:04 Vomiting (Adult) Vomiting (Adult) Vomiting is a common symptom that may be due to different causes. These include gastroenteritis ( stomach flu ), food poisoning and gastritis. There are other more serious causes of vomiting which may be hard to diagnose early in the illness. Therefore, it is important to watch for the warning signs listed below. The main danger from repeated vomiting is dehydration. This is due to excess loss of water and minerals from the body. When this occurs, your body fluids must be replaced. Home care If symptoms are severe, rest at home for the next 24 hours. Because your symptoms may be from an infection, wash your hands often and well. If soap and water are not available, use alcohol-based head neck surgeon to keep from spreading the infection to others. Wash your hands for at least 20 seconds. Humming the happy birthday song twice while you wash is an easy way to make sure you've washed for 20 seconds. Wash your hands after using the toilet, before and after preparing food, before eating food, after changing a diaper, cleaning a wound, caring for a sick person, and blowing your nose, coughing, or sneezing. You should also wash your hands after caring for someone who is sick, touching pet food, or treats, and touching an animal, or animal waste. You may use acetaminophen or NSAID medicines like ibuprofen or naproxen to control fever, unless another medicine was prescribed. If you have chronic liver or kidney disease or ever had a stomach ulcer or gastrointestinal bleeding, talk with your doctor before using these medicines. Aspirin should never be used in anyone under 18 years of age who is ill with a fever. It may cause severe liver damage. Don't use NSAID medicines if you are already taking one for another condition (like arthritis) or are on aspirin (such as for heart disease, or after a stroke) Don't use tobacco and or drink alcohol, which may worsen your symptoms. If medicines for vomiting were prescribed, take as directed. Once vomiting stops, then follow these guidelines: During the first 12 to 24 hours follow the diet below: Fruit juices. Apple, grape juice, clear fruit drinks, and electrolyte replacement drinks. Beverages. Soft drinks without caffeine; mineral water (plain or flavored), decaffeinated tea and coffee. Soups. Clear broth and bouillon Desserts. Plain gelatin, ice pops, and fruit juice bars. As you feel better, you may add 6 to 8 ounces of yogurt per day. During the next 24 hours you may add the following to the above: Hot cereal, plain toast, bread, rolls, crackers Plain noodles, rice, mashed potatoes, chicken noodle or rice soup Unsweetened canned fruit such as applesauce, bananas (avoid pineapple and citrus) Limit caffeine and chocolate. No spices or seasonings except salt. During the next 24 hours: Gradually resume a normal diet, as you feel better and your symptoms lessen. Follow-up care Follow up with your healthcare provider, or as advised. When to seek medical advice Call your healthcare provider right away if any of these occur: Constant right-sided lower belly pain or increasing general belly pain Continued vomiting (unable to keep liquids down) for 24 hours Vomiting blood or coffee grounds Swollen belly Frequent diarrhea (more than 5 times a day); blood (red or black color) or mucus in diarrhea Reduced urine output or extreme thirst Weakness, dizziness or fainting Unusually drowsy or confused Fever of 100.4 F (38 C) oral or higher, or as directed Yellow color of the eyes or skin 0211-5611 [employer]. [address] [place] [address]. All rights reserved. This information is not intended as a substitute for professional medical care. Always follow your healthcare professional's instructions. 04/05/2024 23:16:58 Abdominal Pain Abdominal Pain Abdominal pain is pain in the stomach or belly area. Everyone has this pain from time to time. In many cases it goes away on its own. But abdominal pain can sometimes be due to a serious problem, such as appendicitis. So it s important to know when to get help. Causes of abdominal pain There are many possible causes of abdominal pain. Common causes in adults include: Constipation, diarrhea, or gas Stomach acid flowing back up into the esophagus (acid reflux or heartburn) Severe acid reflux, called GERD (gastroesophageal reflux disease) A sore in the lining of the stomach or small intestine (peptic ulcer) Inflammation of the gallbladder, liver, or pancreas Gallstones or kidney stones Appendicitis Intestinal blockage An internal organ pushing through a muscle or other tissue (hernia) Urinary tract infections In women, menstrual cramps, fibroids, ovarian cysts, pelvic inflammatory disease, or endometriosis Inflammation or infection of the intestines, including Crohn's disease and ulcerative colitis Irritable bowel syndrome Diagnosing the cause of abdominal pain Your healthcare provider will give you a physical exam help find the cause of your pain. If needed, you will have tests. Belly pain has many possible causes. So it can be hard to find the reason for your pain. Giving details about your pain can help. Tell your provider where and when you feel the pain, and what makes it better or worse. Also let your provider know if you have other symptoms such as: Fever Tiredness Upset stomach (nausea) Vomiting Changes in bathroom habits Blood in the stool or black, tarry stool Weight loss that you can't explain (involuntary weight loss?) Also report any family history of stomach or intestinal problems, or cancers. Tell your provider about all your alcohol use and drug use. Tell your provider about all medicines you use, including herbs, vitamins, and supplements. Treating abdominal pain Some causes of pain need emergency medical treatment right away. These include appendicitis or a bowel blockage. Other problems can be treated with rest, fluids, or medicines. Your healthcare provider can give you specific instructions for treatment or self-care based on what is causing your pain. If you have vomiting or diarrhea, sip water or other clear fluids. When you are ready to eat solid foods again, start with small amounts of lwut-xx-rufsyh, low-fat foods. These include apple sauce, toast, or crackers. When to get medical care Call 911 or go to the hospital right away if you: Can t pass stool and are vomiting Are vomiting blood or have bloody diarrhea or black, tarry diarrhea Have chest, neck, or shoulder pain Feel like you might pass out Have pain in your shoulder blades with nausea Have sudden, severe belly pain Have new, severe pain unlike any you have felt before Have a belly that is rigid, hard, and hurts to touch Call your healthcare provider if you have: Pain for more than 5 days Bloating for more than 2 days Diarrhea for more than 5 days A fever of 100.4 F (38 C) or higher, or as directed by your healthcare provider Pain that gets worse Weight loss for no reason Continued lack of appetite Blood in your stool How to prevent abdominal pain Here are some tips to help prevent abdominal pain: Eat smaller amounts of food at each meal. Don't eat greasy, fried, or other high-fat foods. Don't eat foods that give you gas. Exercise regularly. Drink plenty of fluids. To help prevent GERD symptoms: Quit smoking. Reduce alcohol and foods that increase stomach acid. Don't use aspirin or jzju-zwu-qbcgrja pain and fever medicines, if possible. This includes nonsteroidal anti-inflammatory drugs (NSAIDs). Lose excess weight. Finish eating at least 2 hours before you go to bed or lie down. Raise the head of your bed. 4594-1656 The [employer]. [address] [place] [address]. All rights reserved. This information is not intended as a substitute for professional medical care. Always follow your healthcare professional's instructions. Follow Up Care 04/05/2024 19:23:02 With:Your surgeon/pharmacy customer care specialist at [facility] Address:Unknown When:2-4 days Comments:Schedule appointment for close follow-up.Push fluids, bland diet.Continue all routine medications including new medicines that were prescribed after recent hospitalization at [facility].Use Tylenol, Advil or Aleve for pain and fever as needed.Use dicyclomine as prescribed for abdominal discomfort unrelieved with bwwf-sxf-wcnadvo medications.Use promethazine suppositories as prescribed for nausea and vomiting if unable to keep down oral medications.Return here or go to [facility] where your specialists are if symptoms worsen. [facility] 04-05-2024 Note Discharge Instructions Thank you for allowing [facility] to assist you with your healthcare needs. The following is important discharge information regarding your hospital visit. What to Do Next Instructions from Your Care Team No qualifying data available. Post Acute Orders No qualifying data available. You Need to Schedule the Following Appointments Follow Up with Your surgeon/pharmacy customer care specialist at [facility] When:Within 2-4 days Additional Information: Schedule appointment for close follow-up. Push fluids, bland diet. Continue all routine medications including new medicines that were prescribed after recent hospitalization at [facility]. Use Tylenol, Advil or Aleve for pain and fever as needed. Use dicyclomine as prescribed for abdominal discomfort unrelieved with kfrq-tce-hymycxb medications. Use promethazine suppositories as prescribed for nausea and vomiting if unable to keep down oral medications. Return here or go to [facility] where your specialists are if symptoms worsen. Allergies codeine Nausea Medications Please ask your primary doctor or pharmacist before taking any other medication not listed, including over the counter drugs, herbal medications, vitamins and or supplements as they may interact with your home medications. What How Much When Why Instructions Last Dose New promethazine (promethazine 25 mg rectal suppository) 1 suppository(ies) in the rectum Every 6 hours as needed for as needed for nausea/vomiting Duration: 3 Days Printed Prescription Changed dicyclomine (dicyclomine 20 mg oral tablet) 1 tab(s) by mouth Four (4) times a day Abdominal pain Duration: 14 Days Changed dicyclomine (dicyclomine 20 mg oral tablet) 1 tab(s) by mouth Four (4) times a day as needed for As needed for abdominal discomfort Duration: 3 Days Printed Prescription Unchanged acetaminophen (Tylenol) by mouth Unchanged albuterol (albuterol MDI (90 mcg/ inh) CFC free inhalation aerosol) 2 puff(s) by inhalation Every 4 hours Unchanged albuterol (albuterol MDI (90 mcg/ inh) CFC free inhalation aerosol) 2 puff(s) by inhalation Every 4 hours as needed for as needed for wheezing URI with cough and congestion Encounter by telehealth for suspected COVID-19 Unchanged folic acid (folic acid 1 mg oral tablet) 1 tab(s) by mouth 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 Unchanged lactobacillus acidophilus (Acidophilus Extra Strength oral capsule) 1 cap by mouth Two (2) times a day Ileus Unchanged magnesium oxide (magnesium oxide 400 mg oral tablet) 0.5 tab by mouth Once a day Duration: 30 Days Unchanged melatonin 10 to 20mg at bedtime Unchanged metoclopramide (metoclopramide 10 mg oral tablet) 1 tab(s) by mouth Every 8 hours as needed for Nausea/Vomiting Unchanged Misc Medication (MAGNESIUM 200 MG TABLET) one daily Unchanged omeprazole (omeprazole 40 mg oral delayed release capsule) 1 cap by mouth Once a day Abdominal pain Early satiety Duration: 90 Days Unchanged potassium chloride (Potassium Chloride (Gdh-Zkyo-Hvt M20) 20 mEq oral tablet, extended release) 1 tab(s) by mouth Two (2) times a day Duration: 5 Days Unchanged thiamine (Vitamin B1 100 mg oral tablet) 1 tab(s) by mouth 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 Bring all medications you take, including over the counter medications, herbals and other supplements with you to your doctor s visit. Patients and families are reminded to discard old lists and to update any records with all medication providers or retail pharmacies. Education Materials Vomiting (Adult) Vomiting is a common symptom that may be due to different causes. These include gastroenteritis ( stomach flu ), food poisoning and gastritis. There are other more serious causes of vomiting which may be hard to diagnose early in the illness. Therefore, it is important to watch for the warning signs listed below. The main danger from repeated vomiting is dehydration. This is due to excess loss of water and minerals from the body. When this occurs, your body fluids must be replaced. Home care If symptoms are severe, rest at home for the next 24 hours. Because your symptoms may be from an infection, wash your hands often and well. If soap and water are not available, use alcohol-based head neck surgeon to keep from spreading the infection to others. Wash your hands for at least 20 seconds. Humming the happy birthday song twice while you wash is an easy way to make sure you've washed for 20 seconds. Wash your hands after using the toilet, before and after preparing food, before eating food, after changing a diaper, cleaning a wound, caring for a sick person, and blowing your nose, coughing, or sneezing. You should also wash your hands after caring for someone who is sick, touching pet food, or treats, and touching an animal, or animal waste. You may use acetaminophen or NSAID medicines like ibuprofen or naproxen to control fever, unless another medicine was prescribed. If you have chronic liver or kidney disease or ever had a stomach ulcer or gastrointestinal bleeding, talk with your doctor before using these medicines. Aspirin should never be used in anyone under 18 years of age who is ill with a fever. It may cause severe liver damage. Don't use NSAID medicines if you are already taking one for another condition (like arthritis) or are on aspirin (such as for heart disease, or after a stroke) Don't use tobacco and or drink alcohol, which may worsen your symptoms. If medicines for vomiting were prescribed, take as directed. Once vomiting stops, then follow these guidelines: During the first 12 to 24 hours follow the diet below: Fruit juices. Apple, grape juice, clear fruit drinks, and electrolyte replacement drinks. Beverages. Soft drinks without caffeine; mineral water (plain or flavored), decaffeinated tea and coffee. Soups. Clear broth and bouillon Desserts. Plain gelatin, ice pops, and fruit juice bars. As you feel better, you may add 6 to 8 ounces of yogurt per day. During the next 24 hours you may add the following to the above: Hot cereal, plain toast, bread, rolls, crackers Plain noodles, rice, mashed potatoes, chicken noodle or rice soup Unsweetened canned fruit such as applesauce, bananas (avoid pineapple and citrus) Limit caffeine and chocolate. No spices or seasonings except salt. During the next 24 hours: Gradually resume a normal diet, as you feel better and your symptoms lessen. Follow-up care Follow up with your healthcare provider, or as advised. When to seek medical advice Call your healthcare provider right away if any of these occur: Constant right-sided lower belly pain or increasing general belly pain Continued vomiting (unable to keep liquids down) for 24 hours Vomiting blood or coffee grounds Swollen belly Frequent diarrhea (more than 5 times a day); blood (red or black color) or mucus in diarrhea Reduced urine output or extreme thirst Weakness, dizziness or fainting Unusually drowsy or confused Fever of 100.4 F (38 C) oral or higher, or as directed Yellow color of the eyes or skin 9355-8496 The Embedded Chat. [address] [place] [address]. All rights reserved. This information is not intended as a substitute for professional medical care. Always follow your healthcare professional's instructions. Abdominal Pain Abdominal pain is pain in the stomach or belly area. Everyone has this pain from time to time. In many cases it goes away on its own. But abdominal pain can sometimes be due to a serious problem, such as appendicitis. So it s important to know when to get help. Causes of abdominal pain There are many possible causes of abdominal pain. Common causes in adults include: Constipation, diarrhea, or gas Stomach acid flowing back up into the esophagus (acid reflux or heartburn) Severe acid reflux, called GERD (gastroesophageal reflux disease) A sore in the lining of the stomach or small intestine (peptic ulcer) Inflammation of the gallbladder, liver, or pancreas Gallstones or kidney stones Appendicitis Intestinal blockage An internal organ pushing through a muscle or other tissue (hernia) Urinary tract infections In women, menstrual cramps, fibroids, ovarian cysts, pelvic inflammatory disease, or endometriosis Inflammation or infection of the intestines, including Crohn's disease and ulcerative colitis Irritable bowel syndrome Diagnosing the cause of abdominal pain Your healthcare provider will give you a physical exam help find the cause of your pain. If needed, you will have tests. Belly pain has many possible causes. So it can be hard to find the reason for your pain. Giving details about your pain can help. Tell your provider where and when you feel the pain, and what makes it better or worse. Also let your provider know if you have other symptoms such as: Fever Tiredness Upset stomach (nausea) Vomiting Changes in bathroom habits Blood in the stool or black, tarry stool Weight loss that you can't explain (involuntary weight loss?) Also report any family history of stomach or intestinal problems, or cancers. Tell your provider about all your alcohol use and drug use. Tell your provider about all medicines you use, including herbs, vitamins, and supplements. Treating abdominal pain Some causes of pain need emergency medical treatment right away. These include appendicitis or a bowel blockage. Other problems can be treated with rest, fluids, or medicines. Your healthcare provider can give you specific instructions for treatment or self-care based on what is causing your pain. If you have vomiting or diarrhea, sip water or other clear fluids. When you are ready to eat solid foods again, start with small amounts of mdzj-ho-honhvq, low-fat foods. These include apple sauce, toast, or crackers. When to get medical care Call 911 or go to the hospital right away if you: Can t pass stool and are vomiting Are vomiting blood or have bloody diarrhea or black, tarry diarrhea Have chest, neck, or shoulder pain Feel like you might pass out Have pain in your shoulder blades with nausea Have sudden, severe belly pain Have new, severe pain unlike any you have felt before Have a belly that is rigid, hard, and hurts to touch Call your healthcare provider if you have: Pain for more than 5 days Bloating for more than 2 days Diarrhea for more than 5 days A fever of 100.4 F (38 C) or higher, or as directed by your healthcare provider Pain that gets worse Weight loss for no reason Continued lack of appetite Blood in your stool How to prevent abdominal pain Here are some tips to help prevent abdominal pain: Eat smaller amounts of food at each meal. Don't eat greasy, fried, or other high-fat foods. Don't eat foods that give you gas. Exercise regularly. Drink plenty of fluids. To help prevent GERD symptoms: Quit smoking. Reduce alcohol and foods that increase stomach acid. Don't use aspirin or cchu-ouz-lzpdgwl pain and fever medicines, if possible. This includes nonsteroidal anti-inflammatory drugs (NSAIDs). Lose excess weight. Finish eating at least 2 hours before you go to bed or lie down. Raise the head of your bed. [id number] The Embedded Chat. [address] [place] [address], [place] [address]. All rights reserved. This information is not intended as a substitute for professional medical care. Always follow your healthcare professional's instructions. Additional Information VACCINATE! IT SAVES LIVES! Members of the community who have not yet received the COVID-19 vaccine and would like to receive it can visit one of [facility] vaccine clinics. There are many vaccine clinic locations within the [facility]. For locations and available times, please visit [email or web address] [email or web address] It is important to note that some COVID mobile vaccine clinics are held outdoors and may be canceled in rainy or stormy conditions. To learn more about pediatric vaccinations (ages 5-11), we invite you to visit the [facility] webpage. https://www.[email or web address].org/pag es/6012-Sjhok-Oiemmdcvdtr-Frequent fy-Cpebg-Ntffzsuzg.html To learn more about the COVID-19 vaccine, we invite you to visit the CDC website for a list of frequently asked questions. https://www.cdc.gov/coronavirus/20 19-ncov/vaccines/faq.html [email or web address] Patient Portal Access Instructions: Stay connected with your healthcare team and access your personal medical information anytime with the [email or web address] Patient Portal. If you would like a full copy of your medical records please contact the [facility] Medical Records Department Wednesday through Wednesday between 8a.m. and 4:30p.m. Please follow the directions below to access the portal: 1.Access the email account you provided upon registration to the [facility].2.Look for an invitation email from [facility].3.Open the email and access the invitation link: Accept Invitation to [email or web address].Fill in the required villafana to create your account. Sign into [email or web address] with your username and password that you created in the above steps to stay up to date. You can then view a summary of results, a summary of your visits, and the ability to download your summaries to your computer or send the information securely to a physician. Remember that your healthcare information is confidential, so carefully consider who you will allow to register on the [facility] Patient Portal for access to your information. You can also access the [facility] Patient Portal on the [employer]. Simply click on Health Records under Health Data and then click on the [employer] logo. HOW TO SAFELY DISPOSE OF PRESCRIPTION MEDICATIONS Please use one of the following methods to safely dispose of your unused medications. 1.Use a drug disposal kit: the drug disposal pouch allows you to safely discard your old and unused drugs. Ask your nurse to give you one when you are discharged.2.Visit a local take-back location: Many local pharmacies and police departments have programs that collect old and unwanted prescription drugs. Call your local pharmacy or go to http://goodideazs.DineGasm/8R1Mh4o to find one close to you.3.Make use of household items: Use cat litter or old coffee grounds to dispose medications if other options are not available. Mix your drugs with these household products, seal them in an airtight container and throw it into the garbage. Call [facility]: [phone] to be sure your drugs can be disposed of in this way. Some medicines may require a different approach.4.Never flush your medications down the toilet. IF YOU HAVE BEEN PRESCRIBED AN OPIOIDS FOR PAIN If you have been prescribed an opioid (such as hydrocodone, oxycodone or morphine), it is critical to understand the possible side effects and risks of opioid pain medications. Even when taken as directed, opioids can have several side effects including: Tolerance, meaning you might need to take more of a medication for the same pain relief. Nausea, vomiting and/or constipation. Sleepiness, dizziness, dry mouth, confusion, depression or itching. Physical dependence, meaning you have withdrawal symptoms when a medication is stopped ? this can develop within a few days. KNOW YOUR RESPONSIBILITIES It is important to know exactly how much and how often to take the opioid pain medications you are prescribed. Never take opioids in higher amounts or more often than prescribed. Do not combine opioids with alcohol or other drugs that cause drowsiness, such as benzodiazepines, also known as benzos, including diazepam and alprazolam, muscle relaxants or sleep aids. Never sell or share prescription opioids. This is illegal. Store opioids in a secure place and out of reach of others (including children, family, friends and visitors). The last page(s) of this document has been signed and retained as a CHART COPY Signatures Patient Education Materials Vomiting (Adult) Abdominal Pain Medication Leaflets My discharge plan and instructions have been reviewed and explained to me and IADIA BRIANA M understand my current condition and have read and understand these discharge instructions. I have received a written copy of the plan/instructions. If I have questions, I am aware that I should contact my doctor. 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 Multiplanar reformatted images are provided for review. Automated exposure control, iterative reconstruction, and/or weight based adjustment of the mA/kV was utilized to reduce the radiation dose to as low as reasonably achievable. COMPARISON: CT abdomen pelvis 11/30/2023 and 11/27/2023. HISTORY: ORDERING SYSTEM PROVIDED HISTORY: Reason for Exam: Abdominal pain, N/V/D, h/o recurrent pancreatitis, FINDINGS: Trace left pleural effusion with adjacent mild atelectasis. The right lung bases clear. The heart is normal in size. Diffuse hypoattenuation of the liver, findings suggestive of hepatic steatosis and/or diffuse hepatocellular disease. Focal fatty infiltration adjacent to the falciform ligament. Cholecystectomy. The spleen and adrenal glands are within normal limits. Interval decrease in pancreatic edema, peripancreatic inflammatory fat stranding, and surrounding fluid when compared to 11/30/2023 exam. There is and organized focal area of low attenuation seen within the pancreatic body measuring approximately 1 cm in longest axial dimension (series 2, image 35). The kidneys are symmetric in size. No hydronephrosis. The ureters are normal in course and caliber. The urinary bladder appears unremarkable. The uterus appears within normal limits. The large and small bowel demonstrate no obstruction. Interval resolution of duodenal, jejunal and proximal ileal wall thickening. The appendix is not visualized. There is no pericecal inflammation. No free intraperitoneal gas is identified. Trace pelvic fluid. The aorta is normal in caliber. No abdominopelvic lymphadenopathy. There is no acute fracture or aggressive osseous lesion. No acute soft tissue abnormality. Small fat containing umbilical hernia. IMPRESSION: Interval decrease in pancreatic edema, peripancreatic inflammatory stranding, and surrounding fluid when compared to 11/30/2023. There is and organizing fluid collection seen within the pancreatic body measuring 1 cm, findings may represent pancreatic pseudocyst. Hepatic steatosis and/or diffuse hepatocellular disease. Trace left pleural effusion. Trace pelvic ascites, findings may be reactive. Preliminary Report was Dictated by a Resident I have personally reviewed all of the images of this examination and agree with the resident findings and interpretation. Interpreted by: Wenceslao Banegas MD Preliminary Report By: Johnathan Mix Electronically signed By Wenceslao Banegas MD Dictated Date: 04/05/2024 10:27:00 PM Prelim Date: 04/05/2024 10:45:07 PM Sign Date: 04/05/2024 11:24:58 PM Ordering Provider: KATINA POMPA [facility] 04-05-2024 Note Sinus rhythm Electronic Signature: KATINA POMPA MD 04/05/2024 20:29:12 [facility] 04-05-2024 Telephone encount er Note Appointment confirmed 04/28/[address] Zambrano [facility] 04-05-2024 Miscellaneous Notes Formattin g of this note might be different from the original. Appointment confirmed 04/28/[address] Zambrano Name of caller: Feroz Contact phone number: [phone] (Feroz's cell), (Mother's cell) Relationship to Patient: patient Provider: Dr. Zambrano Practice: [facility] Chief Complaint/Reason for Call: Feroz is requesting a call back to reschedule and confirm her appointment with Dr. Zambrano. She also states that she gives permission to schedule the visit with her mother. Please contact Feroz and advise. Best time of day caller can be reached: Any Patient advised that office/PCP has 24-48 business hours to return their call: Yes Office has made several attempts to schedule pt. Unable to reach letter mailed to pt's address on file. Hold released and advanced endo sheet updated. Last attempt: LMTCB re: scheduling r/s OV for 04/28/24 at 10 am [address] Zambrano. If Pt calls back, please confirm new date/time/location LMTCB re: scheduling r/s OV for 04/28/24 at 10 am [address] Zambrano. If Pt calls back, please confirm new date/time/location Received records from [facility] and scanned into media. TY LMTCB with records department re: faxing Pt's record to [facility] at [phone] Mcghee's office and LMTCB re : faxing Pt's record to [facility] at [phone] . LMTCB re: scheduling r/s OV for 04/28/24 at 10 am [address] Zambrano. If Pt calls back, please confirm new date/time/location GI staff to make 2nd attempt for scheduling. Note: Records have not been received from Dr Mcghee's office. GI staff to contact office for additional request. LMTCB re: scheduling r/s OV for 04/28/24 at 10 am [address] Zambrano. If Pt calls back, please confirm new date/time/location Pt established w PAULETTE Gomez at [facility]. Called their office and spoke w their staff (Krysta). Requested records to be sent to our office to maintain continuity of care (office notes, procedure notes from 01/31 ERCP, etc.). Fax# provided. Our office to fax recent hosp admission records and 03/17 OV notes tomorrow after updated plan of care received. Pt is scheduled for an OV 03/17 at 9:[address] Zambrano. Message released to patient as written. Patient's further questions if applicable: patient will except 03/17 appointment the mother confirmed Were all questions from office addressed or relayed to the patient from encounter: Yes The person that answered this call stated that this is no longer the correct number for Feroz and stated he has been receiving notifications re: hospital visits ext. [phone] deleted. I contacted Pt' Mother and LMTCB re: scheduling OV 03/17 at 9:[address] Zambrano at [address] If Pt calls back please confirm date/time/location. Added to adv endo list. GI staff to contact pt to schedule OV w Dr Zambrano. Slot available: 03/17 at 0930. Patient evaluated inpatient, patient seen previously in [place], has biliary stent, would like to follow up with Dr. Zambrano. Needs OV with him and then EUS/ERCP after. documented in this encounter [facility] 04-05-2024 Telephone encount er Note Name of caller: Feroz Contact phone number: [phone] (Feroz's cell), (Mother's cell) Relationship to Patient: patient Provider: Dr. Zambrano Practice: [facility] Chief Complaint/Reason for Call: Feroz is requesting a call back to reschedule and confirm her appointment with Dr. Zambrano. She also states that she gives permission to schedule the visit with her mother. Please contact Feroz and advise. Best time of day caller can be reached: Any Patient advised that office/PCP has 24-48 business hours to return their call: Yes [facility] 04-04-2024 Telephone encount er Note Office has made several attempts to schedule pt. Unable to reach letter mailed to pt's address on file. Hold released and advanced endo sheet updated. [facility] 04-04-2024 Miscellaneous Notes Formattin g of this note might be different from the original. Office has made several attempts to schedule pt. Unable to reach letter mailed to pt's address on file. Hold released and advanced endo sheet updated. Last attempt: LMTCB re: scheduling r/s OV for 04/28/24 at 10 am [address] Zambrano. If Pt calls back, please confirm new date/time/location LMTCB re: scheduling r/s OV for 04/28/24 at 10 am [address] Zambrano. If Pt calls back, please confirm new date/time/location Received records from [facility] and scanned into media. TY LMTCB with records department re: faxing Pt's record to [facility] at [phone] Mcghee's office and TCB re : faxing Pt's record to [facility] at [phone] . LMTCB re: scheduling r/s OV for 04/28/24 at 10 am [address] Zambrano. If Pt calls back, please confirm new date/time/location GI staff to make 2nd attempt for scheduling. Note: Records have not been received from Dr Mcghee's office. GI staff to contact office for additional request. TCB re: scheduling r/s OV for 04/28/24 at 10 am [address] Zambrano. If Pt calls back, please confirm new date/time/location Pt established w PAULETTE Gomez at [facility]. Called their office and spoke w their staff (Krysta). Requested records to be sent to our office to maintain continuity of care (office notes, procedure notes from 01/31 ERCP, etc.). Fax# provided. Our office to fax recent hosp admission records and 03/17 OV notes tomorrow after updated plan of care received. Pt is scheduled for an OV 03/17 at 9:[address] Zambrano. Message released to patient as written. Patient's further questions if applicable: patient will except 03/17 appointment the mother confirmed Were all questions from office addressed or relayed to the patient from encounter: Yes The person that answered this call stated that this is no longer the correct number for Feroz and stated he has been receiving notifications re: hospital visits ext. [phone] deleted. I contacted Pt' Mother and LMTCB re: scheduling OV 03/17 at 9:[address] Zambrano at [address] If Pt calls back please confirm date/time/location. Added to adv endo list. GI staff to contact pt to schedule OV w Dr Zambrano. Slot available: 03/17 at 0930. Patient evaluated inpatient, patient seen previously in [place], has biliary stent, would like to follow up with Dr. Zambarno. Needs OV with him and then EUS/ERCP after. documented in this encounter [facility] 04-04-2024 Telephone encount er Note Last attempt: LMTCB re: scheduling r/s OV for 04/28/24 at 10 am [address] Zambrano. If Pt calls back, please confirm new date/time/location [facility] 03-29-2024 Telephone encount er Note LMTCB re: scheduling r/s OV for 04/28/24 at 10 am [address] Zambrano. If Pt calls back, please confirm new date/time/location [facility] 03-29-2024 Miscellaneous Notes Formattin g of this note might be different from the original. LMTCB re: scheduling r/s OV for 04/28/24 at 10 am [address] Zambrano. If Pt calls back, please confirm new date/time/location Received records from [facility] and scanned into media. TY LMTCB with records department re: faxing Pt's record to [facility] at [phone] Mcghee's office and LMTCB re : faxing Pt's record to [facility] at [phone] . LMTCB re: scheduling r/s OV for 04/28/24 at 10 am [address] Zambrano. If Pt calls back, please confirm new date/time/location GI staff to make 2nd attempt for scheduling. Note: Records have not been received from Dr Mcghee's office. GI staff to contact office for additional request. LMTCB re: scheduling r/s OV for 04/28/24 at 10 am [address] Zambrano. If Pt calls back, please confirm new date/time/location Pt established w PAULETTE Gomez at [facility]. Called their office and spoke w their staff (Krysta). Requested records to be sent to our office to maintain continuity of care (office notes, procedure notes from 01/31 ERCP, etc.). Fax# provided. Our office to fax recent hosp admission records and 03/17 OV notes tomorrow after updated plan of care received. Pt is scheduled for an OV 03/17 at 9:[address] Zambrano. Message released to patient as written. Patient's further questions if applicable: patient will except 03/17 appointment the mother confirmed Were all questions from office addressed or relayed to the patient from encounter: Yes The person that answered this call stated that this is no longer the correct number for Feroz and stated he has been receiving notifications re: hospital visits ext. [phone] deleted. I contacted Pt' Mother and LMTCB re: scheduling OV 03/17 at 9:[address] Zambrano at [address] If Pt calls back please confirm date/time/location. Added to adv endo list. GI staff to contact pt to schedule OV w Dr Zambrano. Slot available: 03/17 at 0930. Patient evaluated inpatient, patient seen previously in [place], has biliary stent, would like to follow up with Dr. Zambrano. Needs OV with him and then EUS/ERCP after. documented in this encounter [facility] 03-29-2024 Telephone encount er Note Received records from [facility] and scanned into media. TY [facility] 03-28-2024 Note . MICRO - Microbiology PROCEDURE: Blood Culture (bacterial) [*1] SOURCE: Blood BODY SITE: COLLECTED DATE/TIME: 03/23/2024 16:23 EDT RECEIVED DATE/TIME: 03/23/2024 18:59 EDT START DATE/TIME: 03/23/2024 18:59 EDT FREE TEXT SOURCE: FINAL REPORTS Final Report [] Verified Date/Time/Personnel: 03/28/2024 19:59 EDT Blood Culture: No Growth at 5 days. PRELIMINARY REPORTS Preliminary Report [] Verified Date/Time/Personnel: 03/23/2024 19:59 EDT Culture has been received in lab and is no growth to date. Routine cultures are held for 5 days. Performing Locations *1: This test was performed at: [address], [address] [place] [address] 03-28-2024 Note . MICRO - Microbiology PROCEDURE: Blood Culture (bacterial) [*1] SOURCE: Blood BODY SITE: COLLECTED DATE/TIME: 03/23/2024 16:23 EDT RECEIVED DATE/TIME: 03/23/2024 18:59 EDT START DATE/TIME: 03/23/2024 18:59 EDT FREE TEXT SOURCE: FINAL REPORTS Final Report [] Verified Date/Time/Personnel: 03/28/2024 18:59 EDT Blood Culture: No Growth at 5 days. PRELIMINARY REPORTS Preliminary Report [] Verified Date/Time/Personnel: 03/23/2024 19:59 EDT Culture has been received in lab and is no growth to date. Routine cultures are held for 5 days. Performing Locations *1: This test was performed at: [address], [address] [place] [address] 03-28-2024 Telephone encount er Note LMTCB with records department re: faxing Pt's record to [facility] at [phone] . [facility] 03-28-2024 Miscellaneous Notes Formattin g of this note might be different from the original. LMTCB with records department re: faxing Pt's record to [facility] at [phone] Mcghee's office and LMTCB re : faxing Pt's record to [facility] at [phone] . LMTCB re: scheduling r/s OV for 04/28/24 at 10 am [address] Zambrano. If Pt calls back, please confirm new date/time/location GI staff to make 2nd attempt for scheduling. Note: Records have not been received from Dr Mcghee's office. GI staff to contact office for additional request. LMTCB re: scheduling r/s OV for 04/28/24 at 10 am [address] Zambrano. If Pt calls back, please confirm new date/time/location Pt established w PAULETTE Gomez at [facility]. Called their office and spoke w their staff (Krysta). Requested records to be sent to our office to maintain continuity of care (office notes, procedure notes from 01/31 ERCP, etc.). Fax# provided. Our office to fax recent hosp admission records and 03/17 OV notes tomorrow after updated plan of care received. Pt is scheduled for an OV 03/17 at 9:[address] Zambrano. Message released to patient as written. Patient's further questions if applicable: patient will except 03/17 appointment the mother confirmed Were all questions from office addressed or relayed to the patient from encounter: Yes The person that answered this call stated that this is no longer the correct number for Feroz and stated he has been receiving notifications re: hospital visits ext. [phone] deleted. I contacted Pt' Mother and LMTCB re: scheduling OV 03/17 at 9:[address] Zambrano at [address] If Pt calls back please confirm date/time/location. Added to adv endo list. GI staff to contact pt to schedule OV w Dr Zambrano. Slot available: 03/17 at 0930. Patient evaluated inpatient, patient seen previously in [place], has biliary stent, would like to follow up with Dr. Zambrano. Needs OV with him and then EUS/ERCP after. documented in this encounter [facility] 03-27-2024 Telephone encount er Note I contacted Dr. Mcghee's office and LMTCB re : faxing Pt's record to [facility] at [phone] . [facility] 03-27-2024 Miscellaneous Notes Formattin g of this note might be different from the original. I contacted Dr. Mcghee's office and [place] re : faxing Pt's record to [facility] at [phone] . LMTCB re: scheduling r/s OV for 04/28/24 at 10 am [address] Zambrano. If Pt calls back, please confirm new date/time/location GI staff to make 2nd attempt for scheduling. Note: Records have not been received from Dr Mcghee's office. GI staff to contact office for additional request. LMTCB re: scheduling r/s OV for 04/28/24 at 10 am [address] Zambrano. If Pt calls back, please confirm new date/time/location Pt established w PAULETTE Gomez at [facility]. Called their office and spoke w their staff (Krysta). Requested records to be sent to our office to maintain continuity of care (office notes, procedure notes from 01/31 ERCP, etc.). Fax# provided. Our office to fax recent hosp admission records and 03/17 OV notes tomorrow after updated plan of care received. Pt is scheduled for an OV 03/17 at 9:[address] Zambrano. Message released to patient as written. Patient's further questions if applicable: patient will except 03/17 appointment the mother confirmed Were all questions from office addressed or relayed to the patient from encounter: Yes The person that answered this call stated that this is no longer the correct number for Feroz and stated he has been receiving notifications re: hospital visits ext. [phone] deleted. I contacted Pt' Mother and LMTCB re: scheduling OV 03/17 at 9:[address] Zambrano at [address] If Pt calls back please confirm date/time/location. Added to adv endo list. GI staff to contact pt to schedule OV w Dr Zambrano. Slot available: 03/17 at 0930. Patient evaluated inpatient, patient seen previously in [place], has biliary stent, would like to follow up with Dr. Zambrano. Needs OV with him and then EUS/ERCP after. documented in this encounter [facility] 03-27-2024 Telephone encount er Note LMTCB re: scheduling r/s OV for 04/28/24 at 10 am [address] Zambrano. If Pt calls back, please confirm new date/time/location [facility] 03-27-2024 Telephone encount er Note GI staff to make 2nd attempt for scheduling. Note: Records have not been received from Dr Mcghee's office. GI staff to contact office for additional request. [facility] 03-23-2024 Hospital Discharg e instructions Patient Education 03/23/2024 21:28:01 Chest Pain, Noncardiac Noncardiac Chest Pain Based on your visit today, the healthcare provider doesn t know what is causing your chest pain. In most cases, people who come to the emergency department with chest pain don t have a problem with their heart. Instead, the pain is caused by other conditions. It's important for the healthcare team to be sure you are not having a life threatening cause for chest pain such as a heart attack, blood clot in the lungs, collapsed lung, ruptured esophagus, or tearing of the aorta. Once these major causes have been ruled out, you may have further evaluation for non-heart causes of chest pain. These may be problems with the lungs, muscles, bones, digestive tract, nerves, or mental health. Lung problems Inflammation around the lungs (pleurisy) Collapsed lung (pneumothorax) Fluid around the lungs (pleural effusion) Lung cancer (a rare cause of chest pain) Muscle or bone problems Inflamed cartilage between the ribs (costochondritis) Fibromyalgia Rheumatoid arthritis Chest wall strain Digestive system problems Reflux Stomach ulcer Spasms of the esophagus Gall stones Gallbladder inflammation Mental health conditions Panic or anxiety attacks Emotional distress Your condition doesn t seem serious and your pain doesn t appear to be coming from your heart. But sometimes the signs of a serious problem take more time to appear. Watch for the warning signs listed below. Home care Follow these guidelines when caring for yourself at home: Rest today and avoid strenuous activity. Take any prescribed medicine as directed. Follow-up care Follow up with your healthcare provider, or as advised, if you don t start to feel better within 24 hours. When to seek medical advice Call your healthcare provider right away if any of these occur: A change in the type of pain. Call if it feels different, becomes more serious, lasts longer, or begins to spread into your shoulder, arm, neck, jaw, or back. Shortness of breath You feel more pain when you breathe Cough with dark-colored mucus or blood Weakness, dizziness, or fainting Fever of 100.4 F (38 C) or higher, or as directed by your healthcare provider Swelling, pain, or redness in one leg [id number] [employer]. [address] [place] [address]. All rights reserved. This information is not intended as a substitute for professional medical care. Always follow your healthcare professional's instructions. Follow Up Care 03/23/2024 15:40:49 With:BERNARDA LEONARDO Address: [address] [place] [phone] When:2-4 days [facility] 03-23-2024 Note Discharge Instructions Thank you for allowing [facility] to assist you with your healthcare needs. The following is important discharge information regarding your hospital visit. Diagnosis from Today's Visit Chest pain Nausea SOB (shortness of breath) What to Do Next Instructions from Your Care Team No qualifying data available. Post Acute Orders No qualifying data available. You Need to Schedule the Following Appointments Follow Up with BERNARDA LEONARDO When:Within 2-4 days Where:[address] [place] [id number] [phone] Allergies codeine Nausea Medications Please ask your primary doctor or pharmacist before taking any other medication not listed, including over the counter drugs, herbal medications, vitamins and or supplements as they may interact with your home medications. What How Much When Why Instructions Last Dose Changed albuterol (albuterol MDI (90 mcg/ inh) CFC free inhalation aerosol) 2 puff(s) by inhalation Every 4 hours Printed Prescription Changed albuterol (albuterol MDI (90 mcg/ inh) CFC free inhalation aerosol) 2 puff(s) by inhalation Every 4 hours as needed for as needed for wheezing URI with cough and congestion Encounter by telehealth for suspected COVID-19 Unchanged acetaminophen (Tylenol) by mouth Unchanged dicyclomine (dicyclomine 20 mg oral tablet) 1 tab(s) by mouth Four (4) times a day Abdominal pain Duration: 14 Days Unchanged folic acid (folic acid 1 mg oral tablet) 1 tab(s) by mouth 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 Unchanged lactobacillus acidophilus (Acidophilus Extra Strength oral capsule) 1 cap by mouth Two (2) times a day Ileus Unchanged magnesium oxide (magnesium oxide 400 mg oral tablet) 0.5 tab by mouth Once a day Duration: 30 Days Unchanged melatonin 10 to 20mg at bedtime Unchanged metoclopramide (metoclopramide 10 mg oral tablet) 1 tab(s) by mouth Every 8 hours as needed for Nausea/Vomiting Unchanged Misc Medication (MAGNESIUM 200 MG TABLET) one daily Unchanged omeprazole (omeprazole 40 mg oral delayed release capsule) 1 cap by mouth Once a day Abdominal pain Early satiety Duration: 90 Days Unchanged potassium chloride (Potassium Chloride (Lux-Yydp-Til M20) 20 mEq oral tablet, extended release) 1 tab(s) by mouth Two (2) times a day Duration: 5 Days Unchanged thiamine (Vitamin B1 100 mg oral tablet) 1 tab(s) by mouth 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 Bring all medications you take, including over the counter medications, herbals and other supplements with you to your doctor s visit. Patients and families are reminded to discard old lists and to update any records with all medication providers or retail pharmacies. Education Materials Noncardiac Chest Pain Based on your visit today, the healthcare provider doesn t know what is causing your chest pain. In most cases, people who come to the emergency department with chest pain don t have a problem with their heart. Instead, the pain is caused by other conditions. It's important for the healthcare team to be sure you are not having a life threatening cause for chest pain such as a heart attack, blood clot in the lungs, collapsed lung, ruptured esophagus, or tearing of the aorta. Once these major causes have been ruled out, you may have further evaluation for non-heart causes of chest pain. These may be problems with the lungs, muscles, bones, digestive tract, nerves, or mental health. Lung problems Inflammation around the lungs (pleurisy) Collapsed lung (pneumothorax) Fluid around the lungs (pleural effusion) Lung cancer (a rare cause of chest pain) Muscle or bone problems Inflamed cartilage between the ribs (costochondritis) Fibromyalgia Rheumatoid arthritis Chest wall strain Digestive system problems Reflux Stomach ulcer Spasms of the esophagus Gall stones Gallbladder inflammation Mental health conditions Panic or anxiety attacks Emotional distress Your condition doesn t seem serious and your pain doesn t appear to be coming from your heart. But sometimes the signs of a serious problem take more time to appear. Watch for the warning signs listed below. Home care Follow these guidelines when caring for yourself at home: Rest today and avoid strenuous activity. Take any prescribed medicine as directed. Follow-up care Follow up with your healthcare provider, or as advised, if you don t start to feel better within 24 hours. When to seek medical advice Call your healthcare provider right away if any of these occur: A change in the type of pain. Call if it feels different, becomes more serious, lasts longer, or begins to spread into your shoulder, arm, neck, jaw, or back. Shortness of breath You feel more pain when you breathe Cough with dark-colored mucus or blood Weakness, dizziness, or fainting Fever of 100.4 F (38 C) or higher, or as directed by your healthcare provider Swelling, pain, or redness in one leg [phone] The [employer]. [address] [place] [address], [place] [address]. All rights reserved. This information is not intended as a substitute for professional medical care. Always follow your healthcare professional's instructions. Additional Information VACCINATE! IT SAVES LIVES! Members of the community who have not yet received the COVID-19 vaccine and would like to receive it can visit one of [facility] vaccine clinics. There are many vaccine clinic locations within the [facility]. For locations and available times, please visit [email or web address] It is important to note that some COVID mobile vaccine clinics are held outdoors and may be canceled in rainy or stormy conditions. To learn more about pediatric vaccinations (ages 5-11), we invite you to visit the [facility] webpage. [email or web address] To learn more about the COVID-19 vaccine, we invite you to visit the CDC website for a list of frequently asked questions. https://www.cdc.gov/coronavirus/20 19-ncov/vaccines/faq.html [email or web address] Patient Portal Access Instructions: Stay connected with your healthcare team and access your personal medical information anytime with the [email or web address] Patient Portal. If you would like a full copy of your medical records please contact the [facility] Medical Records Department Wednesday through Wednesday between 8a.m. and 4:30p.m. Please follow the directions below to access the portal: 1.Access the email account you provided upon registration to the [facility].2.Look for an invitation email from [facility].3.Open the email and access the invitation link: Accept Invitation to [email or web address].Fill in the required villafana to create your account. Sign into [email or web address] with your username and password that you created in the above steps to stay up to date. You can then view a summary of results, a summary of your visits, and the ability to download your summaries to your computer or send the information securely to a physician. Remember that your healthcare information is confidential, so carefully consider who you will allow to register on the [email or web address] Patient Portal for access to your information. You can also access the [email or web address] Patient Portal on the [employer] melva. Simply click on Health Records under Health Data and then click on the [facility] logo. HOW TO SAFELY DISPOSE OF PRESCRIPTION MEDICATIONS Please use one of the following methods to safely dispose of your unused medications. 1.Use a drug disposal kit: the drug disposal pouch allows you to safely discard your old and unused drugs. Ask your nurse to give you one when you are discharged.2.Visit a local take-back location: Many local pharmacies and police departments have programs that collect old and unwanted prescription drugs. Call your local pharmacy or go to http://goodideazs.DineGasm/3L6Fs6u to find one close to you.3.Make use of household items: Use cat litter or old coffee grounds to dispose medications if other options are not available. Mix your drugs with these household products, seal them in an airtight container and throw it into the garbage. Call [facility]: [phone] to be sure your drugs can be disposed of in this way. Some medicines may require a different approach.4.Never flush your medications down the toilet. IF YOU HAVE BEEN PRESCRIBED AN OPIOIDS FOR PAIN If you have been prescribed an opioid (such as hydrocodone, oxycodone or morphine), it is critical to understand the possible side effects and risks of opioid pain medications. Even when taken as directed, opioids can have several side effects including: Tolerance, meaning you might need to take more of a medication for the same pain relief. Nausea, vomiting and/or constipation. Sleepiness, dizziness, dry mouth, confusion, depression or itching. Physical dependence, meaning you have withdrawal symptoms when a medication is stopped ? this can develop within a few days. KNOW YOUR RESPONSIBILITIES It is important to know exactly how much and how often to take the opioid pain medications you are prescribed. Never take opioids in higher amounts or more often than prescribed. Do not combine opioids with alcohol or other drugs that cause drowsiness, such as benzodiazepines, also known as benzos, including diazepam and alprazolam, muscle relaxants or sleep aids. Never sell or share prescription opioids. This is illegal. Store opioids in a secure place and out of reach of others (including children, family, friends and visitors). The last page(s) of this document has been signed and retained as a CHART COPY Signatures Patient Education Materials Chest Pain, Noncardiac Medication Leaflets My discharge plan and instructions have been reviewed and explained to me and IADIA BRIANA M understand my current condition and have read and understand these discharge instructions. I have received a written copy of the plan/instructions. If I have questions, I am aware that I should contact my doctor. Patient/[facility]st [facility] Signature: Date/Time: Relationship to Patient: ___ Witness Name/Signature: Date/Time: [facility] 03-23-2024 Note ORIGINAL EXAMINATION: CTA OF THE CHEST 03/23/2024 8:20 pm TECHNIQUE: CTA of the chest was performed after the administration of intravenous contrast. Multiplanar reformatted images are provided for review. MIP images are provided for review. Automated exposure control, iterative reconstruction, and/or weight based adjustment of the mA/kV was utilized to reduce the radiation dose to as low as reasonably achievable. COMPARISON: Radiograph of the chest November 30, 2023, limited evaluation of the upper abdomen on CT abdomen pelvis November 30, 2023. HISTORY: ORDERING SYSTEM PROVIDED HISTORY: Reason for Exam: chest pain; suspect PE FINDINGS: Pulmonary Arteries: Pulmonary arteries are adequately opacified for evaluation. No evidence of intraluminal filling defect to suggest pulmonary embolism. Main pulmonary artery is normal in caliber. Mediastinum: No evidence of mediastinal lymphadenopathy. The heart and pericardium demonstrate no acute abnormality. There is no acute abnormality of the thoracic aorta. Lungs/pleura: Bronchial wall thickening. No focal consolidation or pulmonary edema. No evidence of pleural effusion or pneumothorax. Upper Abdomen: Lower density of the liver relative to the spleen suggestive of hepatic steatosis. There is ill-defined fluid along the left upper abdomen medially in the expected location of the left adrenal gland/diaphragmatic region. Soft Tissues/Bones: No acute bone or soft tissue abnormality. IMPRESSION: There is ill-defined fluid along the left upper abdomen medially in the expected location of the left adrenal gland/diaphragmatic region. Given history of pancreatitis, perhaps this could be some tracking fluid along the retroperitoneum from an inflamed pancreas although differential includes adrenal pathology, blood products, among others. CT abdomen pelvis is suggested. Small left pleural fluid, which could be reactive. Bronchial wall thickening which could reflect bronchitis or reactive airway disease. Interpreted by: Dilan Kaminski Preliminary Report By: Dilan Kaminski Electronically signed By Dilan Kaminski Dictated Date: 03/23/2024 8:25:20 PM Prelim Date: 03/23/2024 8:32:49 PM Sign Date: 03/23/2024 8:32:49 PM Ordering Provider: DEISY COLVIN [facility] 03-22-2024 Telephone encount er Note LMTCB re: scheduling r/s OV for 04/28/24 at 10 am [address] Zambrano. If Pt calls back, please confirm new date/time/location [facility] 03-22-2024 Miscellaneous Notes Formattin g of this note might be different from the original. LMTCB re: scheduling r/s OV for 04/28/24 at 10 am [address] Zambrano. If Pt calls back, please confirm new date/time/location Pt established w PAULETTE Gomez at [facility]. Called their office and spoke w their staff (Krysta). Requested records to be sent to our office to maintain continuity of care (office notes, procedure notes from 01/31 ERCP, etc.). Fax# provided. Our office to fax recent hosp admission records and 03/17 OV notes tomorrow after updated plan of care received. Pt is scheduled for an OV 03/17 at 9:[address] Zambrano. Message released to patient as written. Patient's further questions if applicable: patient will except 03/17 appointment the mother confirmed Were all questions from office addressed or relayed to the patient from encounter: Yes The person that answered this call stated that this is no longer the correct number for Feroz and stated he has been receiving notifications re: hospital visits ext. [phone] deleted. I contacted Pt' Mother and LMTCB re: scheduling OV 03/17 at 9:[address] Zambrano at [address] If Pt calls back please confirm date/time/location. Added to adv endo list. GI staff to contact pt to schedule OV w Dr Zambrano. Slot available: 03/17 at 0930. Patient evaluated inpatient, patient seen previously in [place], has biliary stent, would like to follow up with Dr. Zambrano. Needs OV with him and then EUS/ERCP after. documented in this encounter [facility] 03-16-2024 Telephone encount er Note Pt established w PAULETTE Gomez at [facility]. Called their office and spoke w their staff (Krysta). Requested records to be sent to our office to maintain continuity of care (office notes, procedure notes from 01/31 ERCP, etc.). Fax# provided. Our office to fax recent hosp admission records and 03/17 OV notes tomorrow after updated plan of care received. [facility] 03-16-2024 Miscellaneous Notes Formattin g of this note might be different from the original. Pt established w PAULETTE Gomez at [facility]. Called their office and spoke w their staff (Krysta). Requested records to be sent to our office to maintain continuity of care (office notes, procedure notes from 01/31 ERCP, etc.). Fax# provided. Our office to fax recent hosp admission records and 03/17 OV notes tomorrow after updated plan of care received. Pt is scheduled for an OV 03/17 at 9:[address] Zambrano. Message released to patient as written. Patient's further questions if applicable: patient will except 03/17 appointment the mother confirmed Were all questions from office addressed or relayed to the patient from encounter: Yes The person that answered this call stated that this is no longer the correct number for Feroz and stated he has been receiving notifications re: hospital visits ext. [phone] deleted. I contacted Pt' Mother and LMTCB re: scheduling OV 03/17 at 9:[address] Zambrano at [address] If Pt calls back please confirm date/time/location. Added to adv endo list. GI staff to contact pt to schedule OV w Dr Zambrano. Slot available: 03/17 at 0930. Patient evaluated inpatient, patient seen previously in [place], has biliary stent, would like to follow up with Dr. Zambrano. Needs OV with him and then EUS/ERCP after. documented in this encounter [facility] 03-10-2024 Telephone encount er Note Pt is scheduled for an OV 03/17 at 9:[address] Zambrano. [facility] 03-10-2024 Miscellaneous Notes Formattin g of this note might be different from the original. Pt is scheduled for an OV 03/17 at 9:[address] Zambrano. Message released to patient as written. Patient's further questions if applicable: patient will except 03/17 appointment the mother confirmed Were all questions from office addressed or relayed to the patient from encounter: Yes The person that answered this call stated that this is no longer the correct number for Feroz and stated he has been receiving notifications re: hospital visits ext. [phone] deleted. I contacted Pt' Mother and LMTCB re: scheduling OV 03/17 at 9:[address] Zambrano at [address] If Pt calls back please confirm date/time/location. Added to adv endo list. GI staff to contact pt to schedule OV w Dr Zambrano. Slot available: 03/17 at 929. Patient evaluated inpatient, patient seen previously in [place], has biliary stent, would like to follow up with Dr. Zambrano. Needs OV with him and then EUS/ERCP after. documented in this encounter [facility] 03-10-2024 Telephone encount er Note Message released to patient as written. Patient's further questions if applicable: patient will except 03/17 appointment the mother confirmed Were all questions from office addressed or relayed to the patient from encounter: Yes [facility] 03-10-2024 Telephone encount er Note The person that answered this call stated that this is no longer the correct number for Feroz and stated he has been receiving notifications re: hospital visits ext. [phone] deleted. I contacted Pt' Mother and LMTCB re: scheduling OV 03/17 at 9:[address] Zambrano [address] If Pt calls back please confirm date/time/location. [facility] 03-10-2024 Telephone encount er Note Added to adv endo list. GI staff to contact pt to schedule OV w Dr Zambrano. Slot available: 03/17 at 09. [facility] 03-08-2024 Plan of care note The patient is Moderately Stable - Low risk of patient condition declining or worsening The patient's goals for the shift include dc to home The clinical goals for the shift include Pain control dc to home Over the shift, the patient did not make progress toward the following goals. Barriers to progression include none. Recommendations to address these barriers include none. [facility] 03-08-2024 Miscellaneous Notes Formattin g of this note might be different from the original. The patient is Moderately Stable - Low risk of patient condition declining or worsening The patient's goals for the shift include dc to home The clinical goals for the shift include Pain control dc to home Over the shift, the patient did not make progress toward the following goals. Barriers to progression include none. Recommendations to address these barriers include none. Images from the original note were not included. Care Management Progress Note Acute on Chronic Pancreatitis- Reg diet- pain and nausea control Discharge plan home when medically stable Discharge Milestones and Delays Expected date/time: 03/09/2024 Expected discharge disposition: Home or Self Care Discharge Milestones Place discharge order Complete med reconciliation Case mgmt discharge readiness Clinical Stability Diagnostic Workup Air Conditioning Installer Recommendations Facility Choice Selection Imaging Results Patient Education Complete Expected Discharge History Expected Date/Time Set By Reviewed At 03/09/2024 Lauren Dukes RN 03/08/2024 9:27 AM 03/07/2024 Lauren Dukes RN 03/07/2024 9:20 AM 03/07/2024 Lauren Dukes RN 03/06/2024 11:19 AM 03/07/2024 Neelam Berg DO 03/04/2024 6:56 PM 03/07/2024 Neelam Berg DO 03/04/2024 4:14 PM Length of Stay (Days): 4 GMLOS: No GMLOS Documented The patient is Moderately Stable - Low risk of patient condition declining or worsening The patient's goals for the shift include improve pain and nausea The clinical goals for the shift include Pain control improve nausea dc if able to tolerate food Over the shift, the patient did not make progress toward the following goals. Barriers to progression include none. Recommendations to address these barriers include none. The patient is Moderately Stable - Low risk of patient condition declining or worsening The patient's goals for the shift include pain control The clinical goals for the shift include Pain control Problem: Pain - Adult Goal: Verbalizes/displays adequate comfort level or baseline comfort level Outcome: Progressing Problem: Safety - Adult Goal: Free from fall injury Outcome: Progressing Problem: Discharge Planning Goal: Discharge to home or other facility with appropriate resources Outcome: Progressing Problem: Knowledge Deficit Goal: Patient/family/caregiver demonstrates understanding of disease process, treatment plan, medications, and discharge instructions Outcome: Progressing Problem: Potential for Compromised Skin Integrity Goal: Skin Integrity is Maintained or Improved Outcome: Progressing Goal: Nutritional status is improving Outcome: Progressing Problem: Urinary Incontinence Goal: Perineal skin integrity is maintained or improved Outcome: Progressing Problem: Pain - Adult Goal: Verbalizes/displays adequate comfort level or baseline comfort level Outcome: Progressing Problem: Safety - Adult Goal: Free from fall injury Outcome: Progressing Problem: Discharge Planning Goal: Discharge to home or other facility with appropriate resources Outcome: Progressing Problem: Knowledge Deficit Goal: Patient/family/caregiver demonstrates understanding of disease process, treatment plan, medications, and discharge instructions Outcome: Progressing Problem: Potential for Compromised Skin Integrity Goal: Skin Integrity is Maintained or Improved Outcome: Progressing Goal: Nutritional status is improving Outcome: Progressing Problem: Urinary Incontinence Goal: Perineal skin integrity is maintained or improved Outcome: Progressing Care Managment Initial Assessment Date: 03/06/2024 Patient Name: Feroz Kaiser : 1990 Patient Information Source of Information: Patient Cognition/Language: WFL - Within Functional Limits Permission given to speak with patient product representative/caregiver as indicated: Yes Confirmation of Payer with patient/family: Yes Payer Name: [employer] MEDICAID : No Confirmation of Primary Care Physician: Confirmed PCP Name: Victorino Jones, DO Seen in last 2 years?: Yes Primary Caregiver: Self If assistance needed, confirmed caregiver ready, willing and able to care for patient at discharge: Confirmed with: Living Arrangements Current Residence: (Trailer) Number of Floors 1 Number of Entry Steps: 5 or more (5 steps) Bed/Bath Levels: Facility: Facility Name: Plan to Return: Lives with: Spouse/significant other Support Systems: Spouse/significant other, Family members Activities of Daily Living Ambulation: Independent Bathing/Dressing: Independent Elimination/Continence/Toileting: Independent Feeding: Independent Who Assists with Activities of Daily Living: Instrumental Activities of Daily Living Prescription Coverage: Yes Pharmacy Used: [facility] in [facility] Medication Management: Independent Transportation/Shopping: Assistance Provider Transportation/Shopping Assistance Provider Name: per family Transportation Mode: Car Needs Assistance with Transportation at Discharge: No Meal Preparation: Independent Laundry/Cleaning: Independent Finances/Bill Paying: Independent Communication: Independent Types of Care Services/Equipment Utilized Care Services: Dialysis Type: Durable Medical Equipment: (denies DME) Patient's Goal/Discharge Plan Patient expects to be discharged to: home Discharge Planning Actions: Continue to follow Patient's Choice Rights and [employer] and Collaborative Relationships Disclosed as Indicated for Post-Acute Care: Interdisciplinary Team Engagement: Social Work Referral for: Additional Information: Met with patient and mom at bedside - reviewed discharge plan, introduced self and role. Patient from home independent with SO and 2 kids (10 & 8 y/o). Patient states has insurance and able to afford medications. Help available at home and family will provide transportation home. Plan -Home - when medically stable. Problem: Pain - Adult Goal: Verbalizes/displays adequate comfort level or baseline comfort level Outcome: Progressing Problem: Knowledge Deficit Goal: Patient/family/caregiver demonstrates understanding of disease process, treatment plan, medications, and discharge instructions Outcome: Progressing documented in this encounter [facility] 03-08-2024 Note Attestation signed by Reji Thompson DO at 03/10/2024 7:59 AM Patient seen & examined on day of discharge. Please refer to note dated on the day of discharge (03/08/2024) for associated attestation, exam, and plan. My personal highlights or additions below noted in Green. Time spent on discharge > 30 minutes. Internal Medicine: Med Team Discharge Summary Feroz Kaiser : 1990 ADMIT DATE: 03/04/2024 DISCHARGE DATE: 03/08/24 PCP: VICTORINO JONES DO Visit Status: Admission Code Status: FULL CODE Primary Discharge Diagnosis: Acute on Chronic Pancreatitis Secondary Discharge Diagnoses: Atelectasis of Left Lung Pleural Effusion of Left Lung Seasonal Asthma Reason for Admission & Hospital Course: Feroz Kaiser is a 33 y.o. female that presented to [facility] on 03/04/2024 and was admitted for acute on chronic pancreatitis. She follows with Dr. Basilio, GI specialist at [facility], for recurrent pancreatitis. She saw him outpatient , Lipase was markedly elevated. He recommended she come to this hospital due to limited resources in [facility]. He recently placed a stent in the bile duct which is set to be removed in March. He recommends she get a pancreatic stent placed. They do not have stents small enough available in their OR. She was started on LR 200cc/hr. Pain medications were Tylenol 650mg Q6H, Oxy 5-10mg Q4H prn moderate breakthrough pain, and dilaudid 0.5mg IV Q4H prn breakthrough severe pain. She received compazine for nausea and made NPO. She required regular pain medications for several days. After regular adult diet was tolerated, dilauded 0.5mg was made Q8H prn severe breakthrough pain. On day two she developed bilateral wheezing and required use of her albuterol inhaler once. CXR revealed atelectasis of Left lung. Bedside POCUS revealed pleural effusion of left lung. She was given ICS and duo-nebs Q12H. Suspicion for PNA was low due to low WBC, lack of fevers, and no increase in cough or purulent sputum. No antibiotics were given. She agreed to discharge. Seen at bedside. Lungs sound much more clear, no audible wheezing. She will take ICS home and use for a few days to encourage full lung expansion. She will follow up with GI in three weeks for endoscopic U/S. Will dc on oxy 5mg for 5 days with 20 tablets supplied. She is agreeable to this. Will also discharge with compazine to manage nausea as Zofran was ineffective. Disposition: Home Activity: No restriction. up with assist Diet: Adult diet Regular Discharge Medications: Medication List START taking these medications acetaminophen 500 MG tablet Commonly known as: Tylenol Take 2 tablets (1,000 mg) by mouth in the morning and 2 tablets (1,000 mg) at noon and 2 tablets (1,000 mg) before bedtime. Do all this for 10 days. oxyCODONE 5 MG immediate release tablet Commonly known as: Roxicodone Take 1 tablet (5 mg) by mouth every 6 hours as needed for moderate pain (4-6) for up to 20 doses. polyethylene glycol (PEG) 3350 17 GM/SCOOP powder Commonly known as: Glycolax Take 17 g by mouth daily for 3 days. prochlorperazine 10 MG tablet Commonly known as: Compazine Take 1 tablet (10 mg) by mouth every 6 hours as needed for nausea or vomiting for up to 7 days. senna-docusate sodium 8.6-50 MG tablet Commonly known as: Senokot-S Take 1 tablet by mouth 2 times daily. Where to Get Your Medications These medications were sent to [facility] [address] [place] [id number] Hours: Wednesday to Wednesday 10 am to 6 pm acetaminophen 500 MG tablet oxyCODONE 5 MG immediate release tablet polyethylene glycol (PEG) 3350 17 GM/SCOOP powder prochlorperazine 10 MG tablet senna-docusate sodium 8.6-50 MG tablet Notable Medication Changes & Reasoning: Duonebs Inpatient: Added on Q12 for worsening wheezing, and findings on CXR consistent with atelectasis of Left Lung. Pleural effusion identified on POCUS exam. Oxycodone 5mg PO Q6H prn pain: Provided 20 tablets for 5 day supply at discharge Compazine: For continued nausea that did not respond to Zofran Consultants GI: Recommended outpatient follow up for EUS in three weeks once inflammation from pancreatitis improves Respiratory Therapy: agreed with duo-nebs Q12H Procedures Performed NA Significant Laboratory/Radiographic Data: Lipase: 1,192 at admission CXR: Lines/Tubes/Devices/Hardware: None. Please confirm position and function of any catheters or attempted catheters clinically. Lungs: Abnormal. Left mid and lower lung zone volume loss. Underlying infiltrate and effusion suspected. Consider pneumonia.. Appears new since prior CT. Limited due to (more content not included)... [facility] 03-08-2024 Note Formatting of this n ote is different from the original. Images from the original note were not included. Care Management Progress Note Acute on Chronic Pancreatitis- Reg diet- pain and nausea control Discharge plan home when medically stable Discharge Milestones and Delays Expected date/time: 03/09/2024 Expected discharge disposition: Home or Self Care Discharge Milestones Place discharge order Complete med reconciliation Case mgmt discharge readiness Clinical Stability Diagnostic Workup Air Conditioning Installer Recommendations Facility Choice Selection Imaging Results Patient Education Complete Expected Discharge History Expected Date/Time Set By Reviewed At 03/09/2024 Lauren Dukes RN 03/08/2024 9:27 AM 03/07/2024 Lauren Dukes RN 03/07/2024 9:20 AM 03/07/2024 Lauren Dukes RN 03/06/2024 11:19 AM 03/07/2024 Neelam Berg DO 03/04/2024 6:56 PM 03/07/2024 Neelam Berg DO 03/04/2024 4:14 PM Length of Stay (Days): 4 GMLOS: No GMLOS Documented T [facility] 03-08-2024 Note Formatting of this n ote is different from the original. Images from the original note were not included. Care Management Progress Note Acute on Chronic Pancreatitis- Reg diet- pain and nausea control Discharge plan home when medically stable Discharge Milestones and Delays Expected date/time: 03/09/2024 Expected discharge disposition: Home or Self Care Discharge Milestones Place discharge order Complete med reconciliation Case mgmt discharge readiness Clinical Stability Diagnostic Workup Air Conditioning Installer Recommendations Facility Choice Selection Imaging Results Patient Education Complete Expected Discharge History Expected Date/Time Set By Reviewed At 03/09/2024 Lauren Dukes RN 03/08/2024 9:27 AM 03/07/2024 Lauren Dukes RN 03/07/2024 9:20 AM 03/07/2024 Lauren Dukes RN 03/06/2024 11:19 AM 03/07/2024 Neelam Berg DO 03/04/2024 6:56 PM 03/07/2024 Neelam Berg DO 03/04/2024 4:14 PM Length of Stay (Days): 4 GMLOS: No GMLOS Documented T [facility] 03-08-2024 Note Care Management Prog ress Note Acute on Chronic Pancreatitis- Reg diet- pain and nausea control Discharge plan home when medically stable Discharge Milestones and Delays Expected date/time: 03/09/2024 Expected discharge disposition: Home or Self Care Discharge Milestones Place discharge order Complete med reconciliation Case mgmt discharge readiness Clinical Stability Diagnostic Workup Air Conditioning Installer Recommendations Facility Choice Selection Imaging Results Patient Education Complete Expected Discharge History Expected Date/Time Set By Reviewed At 03/09/2024 Lauren Dukes RN 03/08/2024 9:27 AM 03/07/2024 Lauren Dukes RN 03/07/2024 9:20 AM 03/07/2024 Lauren Dukes RN 03/06/2024 11:19 AM 03/07/2024 Neelam Berg, DO 03/04/2024 6:56 PM 03/07/2024 Neelam Berg, DO 03/04/2024 4:14 PM Length of Stay (Days): 4 GMLOS: No GMLOS Documented [facility] 03-08-2024 Plan of care note The patient is Moderately Stable - Low risk of patient condition declining or worsening The patient's goals for the shift include improve pain and nausea The clinical goals for the shift include Pain control improve nausea dc if able to tolerate food Over the shift, the patient did not make progress toward the following goals. Barriers to progression include none. Recommendations to address these barriers include none. [facility] 03-08-2024 History of Presen t illness Narrative Med Team Progress Note Feroz Kaiser : 1990(33 y.o.) Date: March 08, 2024 Med Team: Marta Attending: Dr Thompson Chief Complaint: Acute on Chronic Pancreatitis Subjective: - Overnight, changed Dilaudid 0.5 mg from q8h back to q4h prn as pt stated her medication is not lasting long enough. - Currently, patient is resting comfortably in bed. She reports feeling better, and states her pain has improved since yesterday. She states she is slowly increasing her diet and tolerating food well. Has thrown up twice since starting a regular diet. Reports vomit was non-bloody. She reports feeling nauseous when she walks around and does not believe it is due to eating. Pt will fu with GI outpatient for EUS in around three weeks. She denies any chest pain, shortness of breath, constipation, or swelling. She reports once a day loose watery stools. Pt reports no use of albuterol and consistent use of incentive spirometer. Pt is agreeable to stopping IV Dilaudid and continuing on oxycodone PO. Pt is agreeable to being discharged on oxycodone 5 mg for 5 days (20 tablets) and compazine for nausea. Will check on pt after she eats breakfast to see how she tolerates and determine readiness for discharge today. PRN meds used in last 24hrs: -Oxy 10 mg x5 -Dilaudid 0.5 IV x5 -Compazine 10 mg IV x4 Agree with above. Patient seen and examined at bedside and and was resting comfortably. She required an escalation in her pain medications overnight. She states that she feels much better this a.m. and is asking about discharge. She thinks the worsening in her pain yesterday was due to emotional distress of learning that a family member had . She states that she is tolerating adequate p.o. intake. Review of Systems Constitutional: Negative for appetite change, chills and fever. Respiratory: Negative for shortness of breath and wheezing. Cardiovascular: Negative for chest pain. Gastrointestinal: Positive for abdominal pain (LUQ pain, improved), diarrhea (watery, no blood, once daily), nausea (only when walking) and vomiting (x2). Negative for abdominal distention and constipation. Genitourinary: Negative for decreased urine volume, difficulty urinating and dysuria. Scheduled Meds:acetaminophen, 1,000 mg, Oral, q8h enoxaparin, 40 mg, SubCUTAneous, Daily folic acid, 1 mg, Oral, Daily ipratropium-albuterol, 3 mL, Nebulization, 2 times per day nicotine, 1 patch, TransDERmal, Daily Followed by [START ON 04/17/2024] nicotine, 1 patch, TransDERmal, Daily Followed by [START ON 05/01/2024] nicotine, 1 patch, TransDERmal, Daily senna-docusate sodium, 1 tablet, Oral, BID thiamine, 100 mg, Oral, Daily Continuous Infusions: None Objective: BP 115/57 (BP Location: Right arm) Pulse 57 Temp 36 C (96.8 F) (Temporal) Resp 16 Ht 5' 2 (1.575 m) Wt 135 lb (61.2 kg) SpO2 96% BMI 24.69 kg/m Physical Exam Constitutional: General: She is not in acute distress. Appearance: Normal appearance. She is not ill-appearing, toxic-appearing or diaphoretic. Eyes: General: No scleral icterus. Cardiovascular: Rate and Rhythm: Normal rate and regular rhythm. Pulses: Normal pulses. Heart sounds: Normal heart sounds. No murmur heard. No friction rub. No gallop. Pulmonary: Effort: Pulmonary effort is normal. No respiratory distress. Breath sounds: No stridor. No wheezing, rhonchi or rales. Chest: Chest wall: No tenderness. Abdominal: General: Bowel sounds are normal. There is no distension. Palpations: Abdomen is soft. There is no mass. Tenderness: There is abdominal tenderness (on palpation of LUQ, improved). There is no right CVA tenderness, left CVA tenderness, guarding or rebound. Hernia: No hernia is present. Musculoskeletal: General: No swelling, tenderness, deformity or signs of injury. Right lower leg: No edema. Left lower leg: No edema. Skin: General: Skin is warm and dry. Coloration: Skin is not jaundiced or pale. Neurological: General: No focal deficit present. Mental Status: She is alert and oriented to person, place, and time. Psychiatric: Mood and Affect: Mood normal. Behavior: Behavior normal. Agree with the above physical exam. In addition: Appears more comfortable on physical exam today. Abdominal tenderness is still present, however has improved from previous exam. [facility] within last 24 hours Auto WBC Date Value Ref Range Status 03/08/2024 5.6 3.6 - 10.7 10*3/uL Final Hemoglobin Date Value Ref Range Status 03/08/2024 10.5 (L) 11.7 - 16.0 g/dL Final Hematocrit Date Value Ref Range Status 03/08/2024 31.9 (L) 35.0 - 47.0 % Final Platelets Date Value Ref Range Status 03/08/2024 247 140 - 440 10*3/uL Final MCV Date Value Ref Range Status 03/08/2024 91.7 77.0 - 99.0 fL Final SODIUM Date Value Ref Range Status 03/08/2024 134 (L) 135 - 145 mmol/L Final POTASSIUM Date Value Ref Range Status 03/08/2024 3.8 3.5 - 5.1 mmol/L Final CHLORIDE Date Value Ref Range Status 03/08/2024 106 98 - 107 mmol/L Final CARBON DIOXIDE Date Value Ref Range Status 03/08/2024 23 22 - 30 mmol/L Final UREA NITROGEN Date Value Ref Range Status 03/08/2024 <2 (L) 7 - 17 mg/dL Final CREATININE Date Value Ref Range Status 03/08/2024 0.44 (L) 0.52 - 1.04 mg/dL Final GLUCOSE Date Value Ref Range Status 03/08/2024 86 70 - 100 mg/dL Final CALCIUM Date Value Ref Range Status 03/08/2024 8.5 8.4 - 10.4 mg/dL Final No results found for: AST , ALT , PROT , BILITOT , ALKPHOS , INR , APTT , LIPASE No results found for: CKTOTAL , CKMB , TROPONINI No results found for: PROCAL , CHOL , TRIG , HDL , TSH , VITD25 , HGBA1C , VANCOTROUGH Assessment and Plan: Acute on Chronic Pancreatitis Epigastric Pain -HR 57, BP 115/57, RR 16, SpO2 96 RA (03/08) -Not on Creon currently -Pt on adult regular diet -Stopped fluids -Dilaudid 0.5 mg IV increased from Q8H to Q4H prn overnight as pt stated her pain was not well controlled Plan: -Pt agreeable to stopping IV Dilaudid this morning -Pt will be discharged on oxycodone 5 mg, 20 tablets, for 5 days and compazine 10 mg -Discharge likely today -Continue pain management: - Tylenol 1000 mg Q6H - Oxy 5-10 mg Q4H prn pain (not naive to opiates) - Heating pad -Zofran 4mg Q6H prn nausea -Compazine 10mg Q6H prn nausea -IgG4 labs pending Seasonal Asthma, likely atelectasias secondary to decreased depth of respirations 2/2 pain and from inflammation from pancreatitis -Pt reports no overnight use of albuterol or shortness of breath -Pt reports consistent use of incentive spirometer Plan: -Duo-Neb 0.5-2.5 mg/3 mL nebulizer solution BID -Incentive spirometer Q30 min -Continue albuterol prn wheezing and SOB -Will continue to monitor respiratory function Left-sided pleural effusion Left-sided infiltrate noted on chest x-ray, no clinical signs of pneumonia -Chest x-ray findings noted on 03/06/2024. She does not have any dyspnea and has not required any supplemental oxygen. She has no clinical signs of pneumonia. POCUS on 03/07/2024 showed a small left-sided pleural effusion that did not appear to be big enough to require a thoracentesis. Can follow-up on outpatient basis. Suspect that this is due to pancreatitis/high-volume fluid resuscitation. If the pleural effusion becomes a recurrent issue or persists on an outpatient basis, will need to pursue thoracentesis for further evaluation. Resolved Problems: Chronic Problems and Follow Up Items: Hx Alcoholic Pancreatitis - Continue home thiamine and folate - Removed CIIA protocol - Ethyl glucuronide and BAS negative upon admission Nicotine Use Disorder - Pt stated she was having cravings - Cont nicotine patches - Smokes >1 PPD - Goals of Care: FULL CODE - DVT Prophylaxis: Lovenox 40 q24hr - CrCl >30 - GI Prophylaxis: Protonix daily - Diet: NPO Associated attestation - Reji Thompson DO - 03/08/2024 12:34 PM EDT I have discussed the care of Feroz Kaiser with the medical student and/or resident. I have personally taken a history, examined the patient, and performed the associated medical decision making activities. I have reviewed & verified the attested documentation. Unless otherwise noted below, this documentation reflects the history, physical exam, and medical decision making that I performed myself. Please see note for my personal highlights or additions in Green. Patient seen and examined by myself at 0853 on 03/08/24 Padron Changes to Care Plan: -Patient required escalation in her as needed Dilaudid overnight, however states that her pain is much better controlled this a.m. She is asking about discharge today. She states that she has been tolerating adequate p.o. intake. IV fluids were stopped yesterday and she has been able to maintain hydration with p.o. fluids. -Will plan for discharge this afternoon as long as she is able to continue to tolerate p.o. intake. Close outpatient follow-up with GI to schedule EUS/ERCP. Her laboratory work is stable and her leukocytosis that was present on admission has resolved. -Will send out with a short course of oxycodone. Discussed that if pain becomes chronic she may benefit from a celiac plexus block. May also need a referral to pain management if there are chronic pain issues. 7AM-5PM: contact resident on [facility] Med B team (found by hovering over attending's name on left side of patient's chart) 5PM-7AM: contact AI2 (Med Team A or B) or AI3 (Med Team C or D) Time spent on discharge > 30 minutes. Med Team Progress Note Feroz Kaiser : 1990(33 y.o.) Date: March 07, 2024 Med Team: Marta Attending: Dr Thompson Chief Complaint: Acute on Chronic Pancreatitis Subjective: - No acute events overnight. - Currently, patient is resting comfortably in bed. She stated her IV came out last night so she was without pain meds for a few hours. She is still having epigastric pain that radiates across her back, but it has improved. She was advanced to regular adult diet yesterday. She threw up 2 hours after eating soup yesterday, but tolerated her second meal of mashed potatoes and turkey well. She wants to continue the regular diet. She is agreeable to decreasing her pain regimen to Dilaudid every 8 hrs instead of 4 hrs. Reviewed chest x-ray results with patient, and showed patient how to properly use incentive spirometer and reminded her to use it at least once every 30 minutes. Discussed discontinuing IV fluids and the need for improved pain control prior to discharge. Pt reported she receives about a week supply of oxycodone when she goes to the GI doctor. Discussed avoiding certain fatty foods and to slowly increase diet to avoid irritating the pancreas. She denies any chest pain, shortness of breath, dysuria, or constipation. She agreed to bedside POCUS. Revealed mild effusion of left lung at costophrenic angle. These findings are consistent with the CXR results. PRN meds used in last 24hrs: -Oxy 10 mg x5 -Oxy 5 mg x1 -Dilaudid 0.5 IV x5 -Compazine 10 mg IV x2 Agree with above. Patient seen and examined at bedside and was resting comfortably. No acute overnight events noted.states that pain is overall improved, however remains significant. She is still utilizing IV Dilaudid for pain control. P.o. intake is improving. She is agreeable to reducing the frequency of IV Dilaudid today. Hopeful for discharge in the next few days. Understands plan for outpatient follow-up with GI to discuss EUS/ERCP. Review of Systems Constitutional: Negative for appetite change (improving), chills, diaphoresis and fever. Respiratory: Negative for cough, shortness of breath and wheezing. Cardiovascular: Negative for chest pain. Gastrointestinal: Positive for abdominal pain (LUQ radiating into back and RUQ), nausea and vomiting. Negative for constipation and diarrhea. Genitourinary: Negative for decreased urine volume, difficulty urinating and dysuria. Scheduled Meds:acetaminophen, 1,000 mg, Oral, q8h enoxaparin, 40 mg, SubCUTAneous, Daily folic acid, 1 mg, Oral, Daily ipratropium-albuterol, 3 mL, Nebulization, 2 times per day nicotine, 1 patch, TransDERmal, Daily Followed by [START ON 04/17/2024] nicotine, 1 patch, TransDERmal, Daily Followed by [START ON 05/01/2024] nicotine, 1 patch, TransDERmal, Daily senna-docusate sodium, 1 tablet, Oral, BID thiamine, 100 mg, Oral, Daily Continuous Infusions: Objective: BP 112/70 (BP Location: Right arm) Pulse 63 Temp 36.2 C (97.2 F) (Temporal) Resp 17 Ht 5' 2 (1.575 m) Wt 135 lb (61.2 kg) SpO2 96% BMI 24.69 kg/m Physical Exam Constitutional: General: She is not in acute distress. Appearance: Normal appearance. She is not ill-appearing, toxic-appearing or diaphoretic. Eyes: General: No scleral icterus. Cardiovascular: Rate and Rhythm: Normal rate and regular rhythm. Heart sounds: Normal heart sounds. No murmur heard. No friction rub. No gallop. Pulmonary: Effort: Pulmonary effort is normal. No respiratory distress. Breath sounds: No stridor. Wheezing (right lung) present. No rhonchi or rales. Chest: Chest wall: No tenderness. Abdominal: General: Bowel sounds are normal. There is no distension. Palpations: Abdomen is soft. There is no mass. Tenderness: There is abdominal tenderness (on palpation of LUQ, radiates to back). There is no right CVA tenderness, left CVA tenderness, guarding or rebound. Hernia: No hernia is present. Musculoskeletal: General: No swelling, tenderness, deformity or signs of injury. Right lower leg: No edema. Left lower leg: No edema. Skin: General: Skin is warm and dry. Coloration: Skin is not jaundiced or pale. Neurological: General: No focal deficit present. Mental Status: She is alert. Psychiatric: Mood and Affect: Mood normal. Behavior: Behavior normal. Agree with the above physical exam. In addition: POCUS with small left-sided effusion. Spleen appeared large on POCUS. [facility] within last 24 hours Auto WBC Date Value Ref Range Status 03/07/2024 4.9 3.6 - 10.7 10*3/uL Final Hemoglobin Date Value Ref Range Status 03/07/2024 9.9 (L) 11.7 - 16.0 g/dL Final Hematocrit Date Value Ref Range Status 03/07/2024 31.1 (L) 35.0 - 47.0 % Final Platelets Date Value Ref Range Status 03/07/2024 242 140 - 440 10*3/uL Final MCV Date Value Ref Range Status 03/07/2024 89.9 77.0 - 99.0 fL Final SODIUM Date Value Ref Range Status 03/07/2024 135 135 - 145 mmol/L Final POTASSIUM Date Value Ref Range Status 03/07/2024 3.6 3.5 - 5.1 mmol/L Final CHLORIDE Date Value Ref Range Status 03/07/2024 109 (H) 98 - 107 mmol/L Final CARBON DIOXIDE Date Value Ref Range Status 03/07/2024 24 22 - 30 mmol/L Final UREA NITROGEN Date Value Ref Range Status 03/07/2024 <2 (L) 7 - 17 mg/dL Final CREATININE Date Value Ref Range Status 03/07/2024 0.42 (L) 0.52 - 1.04 mg/dL Final GLUCOSE Date Value Ref Range Status 03/07/2024 86 70 - 100 mg/dL Final CALCIUM Date Value Ref Range Status 03/07/2024 7.8 (L) 8.4 - 10.4 mg/dL Final AST (SGOT) Date Value Ref Range Status 03/07/2024 22 15 - 46 U/L Final ALT Date Value Ref Range Status 03/07/2024 12 0 - 34 U/L Final TOTAL PROTEIN Date Value Ref Range Status 03/07/2024 5.3 (L) 6.3 - 8.2 g/dL Final BILIRUBIN, TOTAL Date Value Ref Range Status 03/07/2024 0.6 0.2 - 1.3 mg/dL Final ALKALINE PHOSPHATASE Date Value Ref Range Status 03/07/2024 134 (H) 38 - 126 U/L Final No results found for: CKTOTAL , CKMB , TROPONINI No results found for: PROCAL , CHOL , TRIG , HDL , TSH , VITD25 , HGBA1C , VANCOTROUGH Assessment and Plan: Acute on Chronic Pancreatitis Epigastric Pain -HR 63, BP 112/70, RR 17, SpO2 96 RA (03/07) -Potassium 3.6 (3.2) on 03/07 -Not on Creon currently -GI signed off Plan: -Stop IV fluids -Per GI, adult regular diet as tolerated -Decreasing Dilaudid 1-2 mg from Q4H to Q8H prn -Continue pain management: - Tylenol 1000 mg Q6H - Oxy 5-10 mg Q4H prn pain (not naive to opiates) - Dilaudid 1-2mg Q6H prn breakthrough pain - Heating pad -Zofran 4mg Q6H prn nausea -Compazine 10mg Q6H prn nausea -Received potassium 40 mEq -IgG4 labs pending - Nursing Page at noon regarding breakthrough pain and emotional distress due to learning a family member was just killed in MVA. One time dose of IV dilaudid 0.5mg given as it was several hours until next dose of dilaudid and 2 before next dose of oxy Seasonal Asthma Low Concern for ARDS 2/2 Pancreatitis or pneumonia Likely atelectasias - Chest X-ray on 03/06: Left mid and lower lung zone volume loss. Underlying infiltrate and effusion suspected. Low suspicion for PNA -POCUS of left lung on 03/07 suggests atelectasis secondary to decreased depth of respirations 2/2 pain and from inflammation from pancreatitis Plan: -Duo-Neb 0.5-2.5 mg/3 mL nebulizer solution BID -Incentive spirometer Q30 min -Continue albuterol prn wheezing and SOB -Will continue to monitor respiratory function Resolved Problems: Chronic Problems and Follow Up Items: Hx Alcoholic Pancreatitis - Continue home thiamine and folate - Removed [facility] protocol - Ethyl glucuronide and BAS negative upon admission Nicotine Use Disorder - Pt stated she was having cravings - Cont nicotine patches - Smokes >1 PPD - Goals of Care: FULL CODE - DVT Prophylaxis: Lovenox 40 q24hr - CrCl >30 - GI Prophylaxis: Protonix daily - Diet: NPO Associated attestation - Reji Thompson, - 03/07/2024 2:56 PM EDT I have discussed the care of Feroz Kaiser with the medical student and/or resident. I have personally taken a history, examined the patient, and performed the associated medical decision making activities. I have reviewed & verified the attested documentation. Unless otherwise noted below, this documentation reflects the history, physical exam, and medical decision making that I performed myself. Please see note for my personal highlights or additions in Green. Patient seen and examined by myself at 0905 on 03/07/24 Padron Changes to Care Plan: -Pain continues to improve, however she is still utilizing IV Dilaudid frequently. Given that pain is improving, will decrease frequency of IV Dilaudid to every 8 hours as needed. Continue to advance diet as tolerated. -Chest x-ray yesterday showed a left sided effusion/infiltrate. She does not have any clinical signs of pneumonia. POCUS completed this a.m. showed only a small left-sided effusion. Suspect that this is related to her pancreatitis/aggressive fluid resuscitation. Given that there is only a small fluid collection and there are no signs/symptoms of infection, will hold off on thoracentesis. If pleural effusion worsens or persists, would need a thoracentesis for further evaluation. This can be reevaluated on an outpatient basis. - p.o. intake is improving. Will stop IV fluids and trial p.o. hydration. -Anticipate discharge in the next 1-2 days if her pain continues to improve and she is able to tolerate adequate p.o. intake. -Evaluated by GI on 03/06/2024. Recommending outpatient follow-up for EUS/CRP. IgG4 testing was ordered. 7AM-5PM: contact resident on [facility] Med B team (found by hovering over attending's name on left side of patient's chart) 5PM-7AM: contact AI2 (Med Team A or B) or AI3 (Med Team C or D) 1. Complexity of problems addressed: Acute on chronic pancreatitis requiring IV opioids for pain control 3. Drug therapy requiring intensive monitoring for toxicity: IV hydromorphone [facility] Respiratory Care Department Progress Note As part of the Respiratory Assessment Program (RAP), the following Respiratory Therapist evaluation has been completed, including a chart review and clinical/physical assessment. Respiratory Therapist RAP Evaluation Guideline Points 0 1 2 3 4 Points Strongly Consider History Factor No Pulmonary conditions Stable Pulmonary condition(s) Surgery or Intervention that may impact Pulmonary system (at risk) Surgery or Intervention that is impacting Pulmonary system Active Exacerbation of Pulmonary Condition 1 Respiratory Pattern Regular, RR= 12-18 TIWARI or Increased RR= 19-24 Irregular, or RR= 25-30 SOB, talk in short sentences, or RR= 31-35 Severe SOB, accessory muscle use, one word answers, or RR>35 2 Aerosol Med(s), High Flow O2 Breath Sounds Clear Diminished in 1 lobe Diminished in ? 2 lobes Adventitious breath sounds Coarse crackles, Wheezes, or Diminished in >2 lobes 1 Aerosol Med(s), Bronchial Hygiene, Hyperinflation Cough & Sputum Strong cough, no secretion retention or production Weak cough, no secretion retention or production Weak cough, w/ production (less often than Q2hr), or secretion retention No cough, w/ secretion retention or production (less often than Q2hr) Significant secretion production (more often than Q2hr) or mucus plug 0 Aerosol Med(s), Bronchial Hygiene, Hyperinflation Level of Activity Ambulatory Ambulatory with Assist Up in chair or edge of bed (dangle) Non-ambulatory, bedridden with active ROM Completely paralyzed or without active ROM 1 Triage 5 0-2 Triage 4 3-5 Triage 3 6-10 Triage 2 11-14 Triage 1 ?15 Total 5 Triage Score = 4 TRIAGE SCORING - SUGGESTED FREQUENCIES Aerosol Therapy Bronchial Hygiene Hyperinflation Triage Score Q4h & PRN 1 Q4hWA (QID) & PRN 2 TID & PRN 3 BID & PRN 4 PRN 5 Therapy(s) Indicated Yes/No Aerosol Medication y Hyperinflation Bronchial Hygiene High Flow Oxygen Flow Rates PEF (L/Sec) IVC FVC FEV1 FEV1/FVC Patient instructed and returned demonstration on use of MDI (with spacer, as appropriate) None RT to enter/modify frequency of treatment order in EMR/EHR to match this RAP evaluation. Based on this RAP evaluation the following therapy is being initiated: Duoneb At the following frequency: Q12 Comments: Thank you for involving Respiratory in the care of this patient, Nutrition rescreen completed. Chart reviewed. Patient to be monitored and followed by the diet smog technician. JURGEN Campbell Med Team Progress Note Feroz Kaiser : 1990(33 y.o.) Date: March 06, 2024 Med Team: Marta Attending: Dr Thompson Chief Complaint: Acute on Chronic Pancreatitis Subjective: - No acute events overnight. - Currently, pt is resting in bed and appears in distress. Mother is present at bedside. Reports pain is more tolerable after addition of Dilaudid 0.5mg IV Q4H. She is okay with continuing her current pain regimen. She is still having epigastric pain that radiates to her mid-low back. She denies any nausea, vomiting, swelling, or shortness of breath. Reports using albuterol once overnight. Reports right-sided chest pain that is sharp and comes and goes. Informed her that GI consult is in place and they will come see her today. Will remain NPO until GI recs in place. She is agreeable to this. Denies issues with urination. Denies any other questions or concerns at this time. PRN meds used in last 24hrs: -Oxy 10 mg x5 -Oxy 5 mg x1 -Dilaudid 0.5 IV x6 -Compazine 10 mg IV x2 -Zofran 4 mg x1 Agree with above. Patient seen and examined at bedside and was resting comfortably. No acute overnight events noted. She states that her pain is much better controlled today. Review of Systems Constitutional: Negative for chills, diaphoresis and fever. Respiratory: Negative for cough and shortness of breath. Cardiovascular: Positive for chest pain (sharp right chest pain). Negative for palpitations and leg swelling. Gastrointestinal: Positive for abdominal distention and abdominal pain (LUQ radiating into back and RUQ). Negative for constipation, diarrhea, nausea and vomiting. Genitourinary: Negative for decreased urine volume, difficulty urinating and dysuria. Scheduled Meds:acetaminophen, 1,000 mg, Oral, q8h enoxaparin, 40 mg, SubCUTAneous, Daily folic acid, 1 mg, Oral, Daily ipratropium-albuterol, 3 mL, Nebulization, BID potassium chloride, 40 mEq, IntraVENous, Once senna-docusate sodium, 1 tablet, Oral, BID thiamine, 100 mg, Oral, Daily Continuous Infusions:lactated Ringer's, 150 mL/hr, Last Rate: 200 mL/hr (03/06/24 1200) Objective: BP 106/80 (BP Location: Right arm, Patient Position: Sitting) Pulse 79 Temp 36.4 C (97.5 F) (Temporal) Resp (!) 26 Ht 5' 2 (1.575 m) Wt 135 lb (61.2 kg) SpO2 95% BMI 24.69 kg/m Physical Exam Constitutional: General: She is in acute distress. Appearance: She is ill-appearing. She is not toxic-appearing or diaphoretic. HENT: Head: Normocephalic. Eyes: General: No scleral icterus. Cardiovascular: Rate and Rhythm: Normal rate and regular rhythm. Heart sounds: Normal heart sounds. No murmur heard. No friction rub. No gallop. Pulmonary: Effort: Pulmonary effort is normal. No respiratory distress. Breath sounds: No stridor. Wheezing (bilateral) present. No rhonchi or rales. Chest: Chest wall: No tenderness. Abdominal: General: Bowel sounds are normal. There is distension. Palpations: Abdomen is soft. Tenderness: There is abdominal tenderness. There is guarding (patient positive for guarding when palpated LUQ). There is no right CVA tenderness, left CVA tenderness or rebound. Musculoskeletal: General: No swelling, tenderness, deformity or signs of injury. Right lower leg: No edema. Left lower leg: No edema. Skin: General: Skin is warm and dry. Coloration: Skin is pale. Skin is not jaundiced. Neurological: General: No focal deficit present. Mental Status: She is alert and oriented to person, place, and time. Psychiatric: Mood and Affect: Mood normal. Behavior: Behavior normal. Agree with the above physical exam. In addition: The patient was not in acute distress on my physical exam. She appeared comfortable. There is tenderness to palpation throughout the abdomen, however the abdomen is soft. There is voluntary guarding, however no involuntary guarding or rebound tenderness. No signs of an acute abdomen. [facility] within last 24 hours Auto WBC Date Value Ref Range Status 03/06/2024 5.3 3.6 - 10.7 10*3/uL Final Hemoglobin Date Value Ref Range Status 03/06/2024 10.1 (L) 11.7 - 16.0 g/dL Final Hematocrit Date Value Ref Range Status 03/06/2024 30.6 (L) 35.0 - 47.0 % Final Platelets Date Value Ref Range Status 03/06/2024 226 140 - 440 10*3/uL Final MCV Date Value Ref Range Status 03/06/2024 90.5 77.0 - 99.0 fL Final SODIUM Date Value Ref Range Status 03/06/2024 134 (L) 135 - 145 mmol/L Final POTASSIUM Date Value Ref Range Status 03/06/2024 3.2 (L) 3.5 - 5.1 mmol/L Final CHLORIDE Date Value Ref Range Status 03/06/2024 107 98 - 107 mmol/L Final CARBON DIOXIDE Date Value Ref Range Status 03/06/2024 21 (L) 22 - 30 mmol/L Final UREA NITROGEN Date Value Ref Range Status 03/06/2024 <2 (L) 7 - 17 mg/dL Final CREATININE Date Value Ref Range Status 03/06/2024 0.39 (L) 0.52 - 1.04 mg/dL Final GLUCOSE Date Value Ref Range Status 03/06/2024 78 70 - 100 mg/dL Final CALCIUM Date Value Ref Range Status 03/06/2024 7.9 (L) 8.4 - 10.4 mg/dL Final MAGNESIUM Date Value Ref Range Status 03/06/2024 1.4 (L) 1.6 - 2.3 mg/dL Final AST (SGOT) Date Value Ref Range Status 03/06/2024 26 15 - 46 U/L Final ALT Date Value Ref Range Status 03/06/2024 15 0 - 34 U/L Final TOTAL PROTEIN Date Value Ref Range Status 03/06/2024 5.3 (L) 6.3 - 8.2 g/dL Final BILIRUBIN, TOTAL Date Value Ref Range Status 03/06/2024 0.8 0.2 - 1.3 mg/dL Final ALKALINE PHOSPHATASE Date Value Ref Range Status 03/06/2024 121 38 - 126 U/L Final INR Date Value Ref Range Status 03/05/2024 1.1 0.9 - 1.1 Final Comment: Recommended Anticoagulant Therapy: SEE BELOW ----- INR of 2.0 - 3.0 : - Prophylaxis of Venous Thrombosis (high-risk surgery) - Treatment of Venous Thrombosis - Treatment of Pulmonary Embolism (Includes tissue heart valves, Acute Myocardial Infarction to prevent systemic embolism, Valvular Heart Disease, and Atrial Fibrillation) ----- INR of 2.5 - 3.5 : - Mechanical Prosthetic Valves (high risk) - If oral anticoagulant therapy is used to prevent Myocardial Infarction No results found for: CKTOTAL , CKMB , TROPONINI No results found for: PROCAL , CHOL , TRIG , HDL , TSH , VITD25 , HGBA1C , VANCOTROUGH Assessment and Plan: Acute on Chronic Pancreatitis Epigastric Pain -HR 71, BP 106/80, RR 16, SpO2 97 RA -Potassium 3.2 on 03/06 -Magnesium 1.4 on 03/06 -Triglycerides 212, HDL 33 on 03/06 -Not on Creon currently -Hx of ERCP on 02/01/24 -RUQ US: Status post cholecystectomy, with indwelling biliary stent and mild common bile duct dilatation, as reported. Ovoid, hypoechoic focus adjacent to gallbladder fossa may represent contracted segment of 2nd portion of duodenum. Follow-up as indicated. Findings compatible with fatty infiltration in the liver versus nonspecific hepatocellular disease. Plan: - Continue pain management: - Tylenol 1000 mg Q6H - Oxy 5-10 mg Q4H prn pain (not naive to opiates) - Dilaudid 1-2mg Q4H prn breakthrough pain - Heating pad - Zofran 4mg Q6H prn nausea - Compazine 10mg Q6H prn nausea - Continuous LR for aggressive fluid resuscitation (200mL/hr) - NPO for bowel rest, wait on GI consult before increasing diet regimen - Received potassium 40 mEq - Received magnesium 4000 mg - GI consulted Hepatic steatosis -Hepatic steatosis noted on imaging. No evidence of cirrhosis. Synthetic liver function appears to be intact as bilirubin, platelets and INR are normal. Per chart review, she reportedly did have ascites during a previous hospitalization. These occurred at an outside hospital and not all of the records are available for review. -The etiology of her hepatic steatosis is unclear. Given her age, it would be reasonable to pursue further workup to evaluate for potential autoimmune causes, however she follows with a pharmacy customer care specialist and it is unclear if this workup is already been completed as records are not available for review. Will defer further workup to outpatient as results would be unlikely to change inpatient management. Seasonal Asthma Low Concern for ARDS 2/2 Pancreatitis - Pt used albuterol overnight once - On auscultation this morning positive for bilateral wheezing - Pt denied feeling short of breath Plan: - Ordered chest X-ray - pending - Duo-Neb 0.5-2.5 mg/3 mL nebulizer solution BID - Continue albuterol prn wheezing and SOB - Will continue to monitor respiratory function Nicotine Use Disorder - Pt stated she was having cravings - Ordered nicotine patches - Smokes >1 PPD Resolved Problems: Chronic Problems and Follow Up Items: Hx Alcoholic Pancreatitis - CIWA protocol in place - Continue home thiamine and folate - Goals of Care: FULL CODE - DVT Prophylaxis: Lovenox 40 q24hr - CrCl >30 - GI Prophylaxis: Protonix daily - Diet: NPO Associated attestation - Reji Thompson DO - 03/06/2024 1:57 PM EDT I have discussed the care of Feroz Kaiser with the medical student and/or resident. I have personally taken a history, examined the patient, and performed the associated medical decision making activities. I have reviewed & verified the attested documentation. Unless otherwise noted below, this documentation reflects the history, physical exam, and medical decision making that I performed myself. Please see note for my personal highlights or additions in Green. Patient seen and examined by myself at 0830 on 03/06/24 [place] Changes to Care Plan: -Pain is better controlled today after adding IV Dilaudid. Continue current regimen: Scheduled Tylenol 1 g 3 times daily, oxycodone 5-10 mg every 4 hours as needed and IV Dilaudid 0.5 mg every 4 hours as needed for breakthrough pain. -GI consulted, appreciate recommendations. -Continue lactated Ringer's, however will reduce to 150 mL/h. No signs of volume overload. Will plan to discontinue IV fluids when tolerating p.o. intake. 7AM-5PM: contact resident on [facility] Med B team (found by hovering over attending's name on left side of patient's chart) 5PM-7AM: contact AI2 (Med Team A or B) or AI3 (Med Team C or D) 1. Complexity of problems addressed: Acute pancreatitis requiring IV opioids for pain control 3. Drug therapy requiring intensive monitoring for toxicity: IV hydromorphone Med Team Progress Note Feroz Kaiser : 1990(33 y.o.) Date: March 05, 2024 Med Team: Marta Attending: Dr Thompson Chief Complaint: Acute on Chronic Pancreatitis Subjective: - Overnight, pain was poorly managed with oxy 2.5-5 Q4H and Tylenol 650mg Q6H. Added Dilaudid 0.5mg IV Q4H prn breakthrough pain - Currently, visibly in pain, curled up in bed. Mother is present at bedside. Her pain is not well controlled. She had difficulty moving in the bed for physical exam - position of comfort was on her left side. She has no appetite and is nauseous. States when she takes oral pain medication it worsens her abdominal pain. Denies chest pain, SOB, palpitations, v/d/c. Discussed pain regimens and agreed on Dilaudid 0.5mg IV Q4H. Denies other questions or concerns at this time. PRN meds used in last 24hrs: Oxy 10, Dilaudid 0.5 IV, and Zofran Review of Systems Constitutional: Positive for appetite change (decrease), chills and fatigue. Negative for activity change, diaphoresis and fever. Respiratory: Negative for chest tightness, shortness of breath and wheezing. Cardiovascular: Negative for chest pain, palpitations and leg swelling. Gastrointestinal: Positive for abdominal distention, abdominal pain (LUQ radiating into back and RUQ) and nausea. Negative for constipation, diarrhea and vomiting. Endocrine: Negative for polyuria. Genitourinary: Negative for dysuria. Neurological: Negative for light-headedness and headaches. Scheduled Meds:acetaminophen, 1,000 mg, Oral, q8h Or acetaminophen, 650 mg, Rectal, q8h enoxaparin, 40 mg, SubCUTAneous, Daily folic acid, 1 mg, Oral, Daily senna-docusate sodium, 1 tablet, Oral, BID thiamine, 100 mg, Oral, Daily Continuous Infusions:lactated Ringer's, 200 mL/hr, Last Rate: 200 mL/hr (03/05/24 1439) Objective: BP 126/81 Pulse 86 Temp 37.1 C (98.7 F) (Temporal) Resp 18 Ht 5' 2 (1.575 m) Wt 135 lb (61.2 kg) SpO2 98% BMI 24.69 kg/m Physical Exam Constitutional: General: She is in acute distress. Appearance: Normal appearance. She is ill-appearing. She is not toxic-appearing or diaphoretic. Cardiovascular: Rate and Rhythm: Regular rhythm. Tachycardia present. Pulses: Normal pulses. Pulmonary: Effort: No respiratory distress. Breath sounds: No wheezing or rales. Chest: Chest wall: No tenderness. Abdominal: General: There is distension. Palpations: Abdomen is soft. Tenderness: There is abdominal tenderness. There is guarding. There is no rebound. Musculoskeletal: Right lower leg: No edema. Left lower leg: No edema. Skin: Coloration: Skin is pale. Skin is not jaundiced. Neurological: Mental Status: She is alert and oriented to person, place, and time. [facility] within last 24 hours Auto WBC Date Value Ref Range Status 03/05/2024 6.5 3.6 - 10.7 10*3/uL Final Hemoglobin Date Value Ref Range Status 03/05/2024 11.1 (L) 11.7 - 16.0 g/dL Final Hematocrit Date Value Ref Range Status 03/05/2024 33.9 (L) 35.0 - 47.0 % Final Platelets Date Value Ref Range Status 03/05/2024 240 140 - 440 10*3/uL Final MCV Date Value Ref Range Status 03/05/2024 91.9 77.0 - 99.0 fL Final SODIUM Date Value Ref Range Status 03/05/2024 134 (L) 135 - 145 mmol/L Final POTASSIUM Date Value Ref Range Status 03/05/2024 3.5 3.5 - 5.1 mmol/L Final CHLORIDE Date Value Ref Range Status 03/05/2024 112 (H) 98 - 107 mmol/L Final CARBON DIOXIDE Date Value Ref Range Status 03/05/2024 18 (L) 22 - 30 mmol/L Final UREA NITROGEN Date Value Ref Range Status 03/05/2024 4 (L) 7 - 17 mg/dL Final CREATININE Date Value Ref Range Status 03/05/2024 0.51 (L) 0.52 - 1.04 mg/dL Final GLUCOSE Date Value Ref Range Status 03/05/2024 91 70 - 100 mg/dL Final CALCIUM Date Value Ref Range Status 03/05/2024 8.3 (L) 8.4 - 10.4 mg/dL Final MAGNESIUM Date Value Ref Range Status 03/05/2024 1.6 1.6 - 2.3 mg/dL Final AST (SGOT) Date Value Ref Range Status 03/05/2024 42 15 - 46 U/L Final ALT Date Value Ref Range Status 03/05/2024 21 0 - 34 U/L Final TOTAL PROTEIN Date Value Ref Range Status 03/05/2024 6.0 (L) 6.3 - 8.2 g/dL Final BILIRUBIN, TOTAL Date Value Ref Range Status 03/05/2024 0.6 0.2 - 1.3 mg/dL Final ALKALINE PHOSPHATASE Date Value Ref Range Status 03/05/2024 138 (H) 38 - 126 U/L Final INR Date Value Ref Range Status 03/05/2024 1.1 0.9 - 1.1 Final Comment: Recommended Anticoagulant Therapy: SEE BELOW ----- INR of 2.0 - 3.0 : - Prophylaxis of Venous Thrombosis (high-risk surgery) - Treatment of Venous Thrombosis - Treatment of Pulmonary Embolism (Includes tissue heart valves, Acute Myocardial Infarction to prevent systemic embolism, Valvular Heart Disease, and Atrial Fibrillation) ----- INR of 2.5 - 3.5 : - Mechanical Prosthetic Valves (high risk) - If oral anticoagulant therapy is used to prevent Myocardial Infarction No results found for: CKTOTAL , CKMB , TROPONINI CHOLESTEROL Date Value Ref Range Status 03/05/2024 131 <200 mg/dL Final TRIGLYCERIDE Date Value Ref Range Status 03/05/2024 212 (H) <150 mg/dL Final HDL CHOLESTEROL Date Value Ref Range Status 03/05/2024 33 (L) 40 - 60 mg/dL Final Assessment and Plan: Acute on Chronic Pancreatitis Epigastric Pain - Lipase 1,192 (03/04) - WBC 6.5 (down from 14.1) - HR 85, BP 126/81, RR 18, SpO2 98 RA - CMP: Na 134, bicarb 18, no anion gap - UA trace ketones. Reflexed for culture, but was poor catch with many squamous cells present - very low suspicion for UTI - Not on Creon currently - Alk phos 188, glucose 91 - CT A/P: 1. Findings compatible with pancreatitis, including possible small intraparenchymal pseudocyst and heterogeneous enhancement pattern in the tail region, nonspecific. Correlation with appropriate laboratory values and follow-up to resolution suggested. 2. Hepatic steatosis. 3. Findings which may be due to incomplete or nondistention versus nonspecific postinflammatory change in the ascending and transverse colon of uncertain etiology or chronicity. Follow-up as indicated. 4. Findings which may be associated with pelvic vascular congestion syndrome. Plan - Pain management: - Tylenol 650mg Q6H (no transaminitis) - Oxy 2.5-5mg Q4H prn pain (not naive to opiates) - Added Dilaudid 1-2mg Q4H prn breakthrough pain - Heating pad - Zofran 4mg Q6H prn nausea - Continuous LR for aggressive fluid resuscitation (200mL/hr) - S/P 1L NS bolus - NPO for bowel rest. Due to pain no plans to advance diet today - Cont home dicyclomine - Cont protonix - Lipid panel pending - GI consult - Investigate possible connection between menstrual periods and pelvic vascular congestion syndrome and recurrent episodes of pancreatitis. Hx Alcoholic Pancreatitis - Ethyl glucuronide and BAL neg - CIWA protocol in place - MAT panel neg - Cont home thiamine and folate Nicotine Use Disorder - Nicotine patches - No symptoms of withdrawal Seasonal Allergies - Uses albuterol infrequently, no respiratory distress, SOB, wheezing - Cont albuterol prn wheezing and SOB - Has not needed since admission Resolved Problems: Chronic Problems and Follow Up Items: - Goals of Care: FULL CODE - DVT Prophylaxis: Lovenox 40 q24hr - CrCl >30 - GI Prophylaxis: Protonix daily - Diet: NPO Associated attestation - Reji Thompson DO - 03/05/2024 3:38 PM EDT Patient admitted overnight by admitting residents. I saw and examined the patient 03/05/24 for the first time. See my notes on H&P. documented in this encounter [facility] 03-08-2024 Plan of care note The patient is Moderately Stable - Low risk of patient condition declining or worsening The patient's goals for the shift include pain control The clinical goals for the shift include Pain control Problem: Pain - Adult Goal: Verbalizes/displays adequate comfort level or baseline comfort level Outcome: Progressing Problem: Safety - Adult Goal: Free from fall injury Outcome: Progressing Problem: Discharge Planning Goal: Discharge to home or other facility with appropriate resources Outcome: Progressing Problem: Knowledge Deficit Goal: Patient/family/caregiver demonstrates understanding of disease process, treatment plan, medications, and discharge instructions Outcome: Progressing Problem: Potential for Compromised Skin Integrity Goal: Skin Integrity is Maintained or Improved Outcome: Progressing Goal: Nutritional status is improving Outcome: Progressing Problem: Urinary Incontinence Goal: Perineal skin integrity is maintained or improved Outcome: Progressing [facility] 03-07-2024 Note [facility] Respiratory Care Department Progress Note As part of the Respiratory Assessment Program (RAP), the following Respiratory Therapist evaluation has been completed, including a chart review and clinical/physical assessment. Respiratory Therapist RAP Evaluation Guideline Points 0 1 2 3 4 Points Strongly Consider History Factor No Pulmonary conditions Stable Pulmonary condition(s) Surgery or Intervention that may impact Pulmonary system (at risk) Surgery or Intervention that is impacting Pulmonary system Active Exacerbation of Pulmonary Condition 1 Respiratory Pattern Regular, RR= 12-18 TIWARI or Increased RR= 19-24 Irregular, or RR= 25-30 SOB, talk in short sentences, or RR= 31-35 Severe SOB, accessory muscle use, one word answers, or RR>35 2 Aerosol Med(s), High Flow O2 Breath Sounds Clear Diminished in 1 lobe Diminished in ? 2 lobes Adventitious breath sounds Coarse crackles, Wheezes, or Diminished in >2 lobes 1 Aerosol Med(s), Bronchial Hygiene, Hyperinflation Cough & Sputum Strong cough, no secretion retention or production Weak cough, no secretion retention or production Weak cough, w/ production (less often than Q2hr), or secretion retention No cough, w/ secretion retention or production (less often than Q2hr) Significant secretion production (more often than Q2hr) or mucus plug 0 Aerosol Med(s), Bronchial Hygiene, Hyperinflation Level of Activity Ambulatory Ambulatory with Assist Up in chair or edge of bed (dangle) Non-ambulatory, bedridden with active ROM Completely paralyzed or without active ROM 1 Triage 5 0-2 Triage 4 3-5 Triage 3 6-10 Triage 2 11-14 Triage 1 ?15 Total 5 Triage Score = 4 TRIAGE SCORING - SUGGESTED FREQUENCIES Aerosol Therapy Bronchial Hygiene Hyperinflation Triage Score Q4h & PRN 1 Q4hWA (QID) & PRN 2 TID & PRN 3 BID & PRN 4 PRN 5 Therapy(s) Indicated Yes/No Aerosol Medication y Hyperinflation Bronchial Hygiene High Flow Oxygen Flow Rates PEF (L/Sec) IVC FVC FEV1 FEV1/FVC Patient instructed and returned demonstration on use of MDI (with spacer, as appropriate) None RT to enter/modify frequency of treatment order in EMR/EHR to match this RAP evaluation. Based on this RAP evaluation the following therapy is being initiated: Duoneb At the following frequency: Q12 Comments: Thank you for involving Respiratory in the care of this patient, [facility] 03-07-2024 Plan of care note Problem: Pain - Adult Goal: Verbalizes/displays adequate comfort level or baseline comfort level Outcome: Progressing Problem: Safety - Adult Goal: Free from fall injury Outcome: Progressing Problem: Discharge Planning Goal: Discharge to home or other facility with appropriate resources Outcome: Progressing Problem: Knowledge Deficit Goal: Patient/family/caregiver demonstrates understanding of disease process, treatment plan, medications, and discharge instructions Outcome: Progressing Problem: Potential for Compromised Skin Integrity Goal: Skin Integrity is Maintained or Improved Outcome: Progressing Goal: Nutritional status is improving Outcome: Progressing Problem: Urinary Incontinence Goal: Perineal skin integrity is maintained or improved Outcome: Progressing [facility] 03-06-2024 Telephone encount er Note Patient evaluated inpatient, patient seen previously in [place], has biliary stent, would like to follow up with Dr. Zambrano. Needs OV with him and then EUS/ERCP after. [facility] Work Phone: 03-06-2024 Miscellaneous Notes Formattin g of this note might be different from the original. Patient evaluated inpatient, patient seen previously in [place], has biliary stent, would like to follow up with Dr. Zambrano. Needs OV with him and then EUS/ERCP after. documented in this encounter [facility] 03-06-2024 Note Formatting of this n ote might be different from the original. Care Managment Initial Assessment Date: 03/06/2024 Patient Name: Feroz Kaiser : 1990 Patient Information Source of Information: Patient Cognition/Language: WFL - Within Functional Limits Permission given to speak with patient product representative/caregiver as indicated: Yes Confirmation of Payer with patient/family: Yes Payer Name: [employer] MEDICAID : No Confirmation of Primary Care Physician: Confirmed PCP Name: Victorino Jones, DO Seen in last 2 years?: Yes Primary Caregiver: Self If assistance needed, confirmed caregiver ready, willing and able to care for patient at discharge: Confirmed with: Living Arrangements Current Residence: ([place]) Number of Floors 1 Number of Entry Steps: 5 or more (5 steps) Bed/Bath Levels: Facility: Facility Name: Plan to Return: Lives with: Spouse/significant other Support Systems: Spouse/significant other, Family members Activities of Daily Living Ambulation: Independent Bathing/Dressing: Independent Elimination/Continence/Toileting: Independent Feeding: Independent Who Assists with Activities of Daily Living: Instrumental Activities of Daily Living Prescription Coverage: Yes Pharmacy Used: [facility] in [facility] Medication Management: Independent Transportation/Shopping: Assistance Provider Transportation/Shopping Assistance Provider Name: per family Transportation Mode: Car Needs Assistance with Transportation at Discharge: No Meal Preparation: Independent Laundry/Cleaning: Independent Finances/Bill Paying: Independent Communication: Independent Types of Care Services/Equipment Utilized Care Services: Dialysis Type: Durable Medical Equipment: (denies DME) Patient's Goal/Discharge Plan Patient expects to be discharged to: home Discharge Planning Actions: Continue to follow Patient's Choice Rights and [employer] and Collaborative Relationships Disclosed as Indicated for Post-Acute Care: Interdisciplinary Team Engagement: Social Work Referral for: Additional Information: Met with patient and mom at bedside - reviewed discharge plan, introduced self and role. Patient from home independent with SO and 2 kids (10 & 8 y/o). Patient states has insurance and able to afford medications. Help available at home and family will provide transportation home. Plan -Home - when medically stable. [facility] 03-06-2024 Note Formatting of this n ote might be different from the original. Care Managment Initial Assessment Date: 03/06/2024 Patient Name: Feroz Kaiser : 1990 Patient Information Source of Information: Patient Cognition/Language: WFL - Within Functional Limits Permission given to speak with patient product representative/caregiver as indicated: Yes Confirmation of Payer with patient/family: Yes Payer Name: [facility] MEDICAID : No Confirmation of Primary Care Physician: Confirmed PCP Name: Victorino Jones, DO Seen in last 2 years?: Yes Primary Caregiver: Self If assistance needed, confirmed caregiver ready, willing and able to care for patient at discharge: Confirmed with: Living Arrangements Current Residence: ([place]) Number of Floors 1 Number of Entry Steps: 5 or more (5 steps) Bed/Bath Levels: Facility: Facility Name: Plan to Return: Lives with: Spouse/significant other Support Systems: Spouse/significant other, Family members Activities of Daily Living Ambulation: Independent Bathing/Dressing: Independent Elimination/Continence/Toileting: Independent Feeding: Independent Who Assists with Activities of Daily Living: Instrumental Activities of Daily Living Prescription Coverage: Yes Pharmacy Used: [facility] in [facility] Medication Management: Independent Transportation/Shopping: Assistance Provider Transportation/Shopping Assistance Provider Name: per family Transportation Mode: Car Needs Assistance with Transportation at Discharge: No Meal Preparation: Independent Laundry/Cleaning: Independent Finances/Bill Paying: Independent Communication: Independent Types of Care Services/Equipment Utilized Care Services: Dialysis Type: Durable Medical Equipment: (denies DME) Patient's Goal/Discharge Plan Patient expects to be discharged to: home Discharge Planning Actions: Continue to follow Patient's Choice Rights and [employer] and Collaborative Relationships Disclosed as Indicated for Post-Acute Care: Interdisciplinary Team Engagement: Social Work Referral for: Additional Information: Met with patient and mom at bedside - reviewed discharge plan, introduced self and role. Patient from home independent with SO and 2 kids (10 & 8 y/o). Patient states has insurance and able to afford medications. Help available at home and family will provide transportation home. Plan -Home - when medically stable. [facility] 03-06-2024 Consult note Associated Order (s): IP CONSULT TO GI Department of Internal Medicine Gastroenterology Attending Consult Note Reason for Consult: The patient was seen in consultation at the request of Reji Thompson re: Recurrent pancreatitis, s/p biliary stent. CHIEF COMPLAINT: Epigastric pain History Obtained From: patient HISTORY OF PRESENT ILLNESS: The patient is a 33 y.o. female with significant past medical history of pancreatitis, IBS, history of alcohol abuse who presents with epigastric pain. In the ED, vitals stable. Labs significant for initial WBC of 14.1, now 5.3. Lipase 1,192, hemoglobin 10., LFTs and T. Bili WNL. CT abdomen and pelvis showed findings consistent with pancreatitis: possible small intraparenchymal pseudocyst and heterogenous enhancement pattern in tail region. RUQ U/S showed s/p cholecystectomy with indwelling biliary stent and mild CBD dilatation. Upon examination, patient lying in bed. She reports that she began to have epigastric pain radiating into her back on Wednesday (03/03) and was seen by her outpatient GI, Dr. Mcghee at [facility]. He recommended that she come to [facility] for evaluation due to limited resources at [facility]. She reports her pain was associated with nausea and vomiting, which is now well-controlled with medication regimen. She states that she has a history of pancreatitis, and that she has a biliary stent in place, which is set to be removed in March 2024. She reports her GI doctor, Dr. Mcghee is recommending a pancreatic stent to be placed but he does not have the resources at [facility]. Patient has a history of alcohol abuse, however since her first episode of pancreatitis in November 2023 does not drink much. She does smoke cigarettes daily. She is s/p cholecystectomy (roughly ten years ago). Of note, she reports that she has had monthly episodes of pancreatitis since November 2023, and they all correlate with her menstrual cycle. She inquires regarding potential connection with pelvic vascular congestion syndrome and her recurrent pancreatitis. Allergies: Morphine and codeine Current Medications: Current Facility-Administered Medications: acetaminophen (Tylenol) tablet 1,000 mg, 1,000 mg, Oral, q8h, 1,000 mg at 03/05/24 7483 OR [DISCONTINUED] acetaminophen (Tylenol) suppository 650 mg, 650 mg, Rectal, q8h, Roman Montero MD enoxaparin (Lovenox) syringe 40 mg, 40 mg, SubCUTAneous, Daily, Reeya Morena, DO, 40 mg at 03/05/242041 folic acid (Folvite) tablet 1 mg, 1 mg, Oral, Daily, Reeya Morena, DO, 1 mg at 03/05/24 0833 HYDROmorphone (Dilaudid) injection 0.5 mg, 0.5 mg, IntraVENous, q4h PRN, Neelam Morena, DO, 0.5 mg at 03/06/24 0628 lactated Ringer's infusion, 200 mL/hr, IntraVENous, Continuous, Reeya Morena, DO, Last Rate: 200 mL/hr at 03/06/24 0215, 200 mL/hr at 03/06/24 0215 LORazepam (Ativan) tablet 1 mg, 1 mg, Oral, q1h PRN OR LORazepam (Ativan) injection 1 mg, 1 mg, IntraVENous, q1h PRN OR LORazepam (Ativan) tablet 2 mg, 2 mg, Oral, q1h PRN OR LORazepam (Ativan) injection 2 mg, 2 mg, IntraVENous, q1h PRN, Reeya Morena, DO magnesium sulfate IVPB 4,000 mg, 4,000 mg, IntraVENous, Once, Reeya Morena, DO naloxone (Narcan) 0.4 mg in 0.9% sodium chloride 10 mL syringe, , IntraVENous, PRN, Reeya Morena, DO oxyCODONE (Roxicodone) immediate release tablet 5 mg, 5 mg, Oral, q4h PRN OR oxyCODONE (Roxicodone) immediate release tablet 10 mg, 10 mg, Oral, q4h PRN, Reeya Morena, DO, 10 mg at 03/06/24 0432 polyethylene glycol (PEG) 3350 (Miralax) packet 17 g, 17 g, Oral, Daily PRN, Reeya Morena, DO potassium chloride 40 mEq in NS 500 mL IVPB (premix), 40 mEq, IntraVENous, Once, Reeya Morena, DO prochlorperazine (Compazine) tablet 10 mg, 10 mg, Oral, q6h PRN, 10 mg at 03/05/24 1528 OR prochlorperazine (Compazine) injection 10 mg, 10 mg, IntraVENous, q6h PRN, Reeya Morena, DO, 10 mg at 03/06/24 0215 senna-docusate sodium (Senokot-S) 8.6-50 MG tablet 1 tablet, 1 tablet, Oral, BID, Reeya Morena, DO, 1 tablet at 03/05/242041 thiamine (Vitamin B1) tablet 100 mg, 100 mg, Oral, Daily, Reeya Morena, DO, 100 mg at 03/05/24 0833 Past Medical History: Active Ambulatory Problems Diagnosis Date Noted No Active Ambulatory Problems Resolved Ambulatory Problems Diagnosis Date Noted No Resolved Ambulatory Problems No Additional Past Medical History Past Surgical History: Social History Socioeconomic History Marital status: Single Spouse name: Not on file Number of children: Not on file Years of education: Not on file Highest education level: Not on file Occupational History Not on file Tobacco Use Smoking status: Every Day Current packs/day: 0.50 Types: Cigarettes Smokeless tobacco: Never Substance and Sexual Activity Alcohol use: Not Currently Drug use: Not Currently Sexual activity: Not on file Other Topics Concern Not on file Social History Narrative Not on file Social Determinants of Health Financial Resource Strain: Not on file Food Insecurity: Not on file Transportation Needs: No Transportation Needs (03/04/2024) PRAPARE - Transportation Lack of Transportation (Medical): No Lack of Transportation (Non-Medical): No Physical Activity: Not on file Stress: Not on file Social Connections: Not on file Intimate Partner Violence: Not At Risk (03/04/2024) Humiliation, Afraid, Rape, and Kick questionnaire Fear of Current or Ex-Partner: No Emotionally Abused: No Physically Abused: No Sexually Abused: No Housing Stability: Unknown (03/04/2024) Housing Stability Vital Sign Unable to Pay for Housing in the Last Year: No Number of Times Moved in the Last Year: Not on file Homeless in the Last Year: No Family History: No family history on file. No family history colon or stomach cancer. Social History: TOBACCO: reports that she has been smoking cigarettes. She has never used smokeless tobacco. ETOH: reports that she does not currently use alcohol. DRUGS: reports that she does not currently use drugs. 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 Normal appetite and weight. No NOE, visual disturbance, eye pain, jaundice, sore throat or mouth ulcers. No skin rash or itching. No CP, SOB, TIWARI, cough or wheeze. No urinary frequency, urgency, hematuria, or dysuria. No myalgia, arthralgia, or joint swelling. No weakness, numbness, or confusion. GI per HPI. No polyuria, polydipsia, heat or cold intolerance. PHYSICAL EXAM: VS: BP 106/80 (BP Location: Right arm, Patient Position: Sitting) Pulse 71 Temp 36.4 C (97.5 F) (Temporal) Resp 16 Ht 5' 2 (1.575 m) Wt 135 lb (61.2 kg) SpO2 97% BMI 24.69 kg/m Body mass index is 24.69 kg/m . Constitutional: No acute distress. Well-nourished. Well hydrated Head/Eyes: Pupils are equal and round; Conjunctiva are not injected; Sclera are non-icteric. ENT: Ears/nose without external abnormalities. Oral mucosa is pink and moist. Neck: No JVD. No carotid bruits; No thyromegaly. Respiratory: Clear to auscultation bilaterally without any added sounds. Effort is normal Heart: Regular, Normal S1 and S2. No murmur; No added sounds. Abdomen: Normal BS, soft, TTP epigastric region, non-distended; no hepatomegaly. Extremities/Skin: No LE edema; Skin warm to touch and well perfused. Musculoskeletal: Head - normocephalic. Neck - supple Psychiatric: AAO x 3, answers appropriately, normal mood, normal affect. Non-focal. DATA: Recent blood work and relevant radiologic and endoscopic studies were reviewed and discussed with the patient. CBC: Recent Labs 03/04/24 1405 03/05/24 0602 03/06/24 0437 WBC 14.1* 6.5 5.3 RBC 4.73 3.69* 3.38* HGB 14.0 11.1* 10.1* HCT 43.4 33.9* 30.6* MCV 91.8 91.9 90.5 MCH 29.6 30.1 29.9 MCHC 32.3 32.7 33.0 RDW 13.2 13.3 13.1 PLT 409 240 226 MPV 11.6 12.1 12.1 CMP: Recent Labs 03/04/24 1405 03/05/24 0602 03/06/24 0437 NA 135 134* 134* K 4.0 3.5 3.2* CL 106 112* 107 CO2 17* 18* 21* BUN 12 4* <2* CREATININE 0.76 0.51* 0.39* GLUCOSE 101* 91 78 CALCIUM 9.8 8.3* 7.9* PROT 8.3* 6.0* 5.3* BILITOT 0.7 0.6 0.8 ALKPHOS 188* 138* 121 AST 30 42 26 ALT 24 21 15 PT/INR: Recent Labs 03/05/24 1421 INR 1.[address] abdomen and pelvis with contrast (03/04/24) impression: 1. Findings compatible with pancreatitis, including possible small intraparenchymal pseudocyst and heterogeneous enhancement pattern in the tail region, nonspecific. Correlation with appropriate laboratory values and follow-up to resolution suggested. 2. Hepatic steatosis. 3. Findings which may be due to incomplete or nondistention versus nonspecific postinflammatory change in the ascending and transverse colon of uncertain etiology or chronicity. Follow-up as indicated. 4. Findings which may be associated with pelvic vascular congestion syndrome. RUQ U/S (03/05/24) impression: 1. Status post cholecystectomy, with indwelling biliary stent and mild common bile duct dilatation, as reported. 2. Ovoid, hypoechoic focus adjacent to gallbladder fossa may represent contracted segment of 2nd portion of duodenum. Follow-up as indicated. 3. Findings compatible with fatty infiltration in the liver versus nonspecific hepatocellular disease. Endoscopic Review No EGD/colonoscopy results found on chart review Patient reports having an outpatient colonoscopy years ago, and that she was diagnosed with IBS IMPRESSION/RECOMMENDATIONS: Acute recurrent pancreatitis - CLD, can advance diet as patient tolerates - LR @ 150cc/hr, can decrease as patient has increased PO intake - IgG4 ordered - Encouraged alcohol and tobacco cessation - Recommending outpatient EUS in 3-4 weeks - Continue medical management per primary The GI/Liver consult service will sign off. Please call if there are any questions, concerns or change of patient's GI condition. Thanks. Associated attestation - Raghav Zambrano MD - 03/06/2024 6:45 PM EDT Attending Supervising Physician s Attestation Statement I have personally performed and participated in all the above services (including HPI and PE). I have reviewed the case with Advance Practice Provider (MELVA)/ resident / student, and agreed with the MELVA's / resident / student assessment and plan as above. I have following additions or modifications: I did substantive portion of medical decision making. Recurrent acute pancreatitis. Has a CBD stent for unknown reason. No current jaundice, recommend IV fluids, DVT prophylaxis , start on clear liquids and advance as tolerated. EUS to evaluate pancreas and ERCP to remove stent in 3-4 weeks. Discussed to avoid smoking and EtOH. IGG4 at OSH was negative per patient. Has osmani many years ago. Inpatient GI to sign off , call with questions, recommend aggressive supportive measures as above. [facility] [employer] [employer] Work Phone: 03-06-2024 Consult note Associated Order (s): IP CONSULT TO GI Department of Internal Medicine Gastroenterology Attending Consult Note Reason for Consult: The patient was seen in consultation at the request of Reji Thompson re: Recurrent pancreatitis, s/p biliary stent. CHIEF COMPLAINT: Epigastric pain History Obtained From: patient HISTORY OF PRESENT ILLNESS: The patient is a 33 y.o. female with significant past medical history of pancreatitis, IBS, history of alcohol abuse who presents with epigastric pain. In the ED, vitals stable. Labs significant for initial WBC of 14.1, now 5.3. Lipase 1,192, hemoglobin 10., LFTs and T. Bili WNL. CT abdomen and pelvis showed findings consistent with pancreatitis: possible small intraparenchymal pseudocyst and heterogenous enhancement pattern in tail region. RUQ U/S showed s/p cholecystectomy with indwelling biliary stent and mild CBD dilatation. Upon examination, patient lying in bed. She reports that she began to have epigastric pain radiating into her back on Wednesday (03/03) and was seen by her outpatient GI, Dr. Mcghee at [facility]. He recommended that she come to [facility] for evaluation due to limited resources at [facility]. She reports her pain was associated with nausea and vomiting, which is now well-controlled with medication regimen. She states that she has a history of pancreatitis, and that she has a biliary stent in place, which is set to be removed in March 2024. She reports her GI doctor, Dr. Mcghee is recommending a pancreatic stent to be placed but he does not have the resources at [facility]. Patient has a history of alcohol abuse, however since her first episode of pancreatitis in November 2023 does not drink much. She does smoke cigarettes daily. She is s/p cholecystectomy (roughly ten years ago). Of note, she reports that she has had monthly episodes of pancreatitis since November 2023, and they all correlate with her menstrual cycle. She inquires regarding potential connection with pelvic vascular congestion syndrome and her recurrent pancreatitis. Allergies: Morphine and codeine Current Medications: Current Facility-Administered Medications: acetaminophen (Tylenol) tablet 1,000 mg, 1,000 mg, Oral, q8h, 1,000 mg at 03/05/243 OR [DISCONTINUED] acetaminophen (Tylenol) suppository 650 mg, 650 mg, Rectal, q8h, Roman Montero MD enoxaparin (Lovenox) syringe 40 mg, 40 mg, SubCUTAneous, Daily, Reeya Morena, DO, 40 mg at 03/05/242041 folic acid (Folvite) tablet 1 mg, 1 mg, Oral, Daily, Reeya Morena, DO, 1 mg at 03/05/24 0833 HYDROmorphone (Dilaudid) injection 0.5 mg, 0.5 mg, IntraVENous, q4h PRN, Reeya Morena, DO, 0.5 mg at 03/06/24 0628 lactated Ringer's infusion, 200 mL/hr, IntraVENous, Continuous, Reeya Morena, DO, Last Rate: 200 mL/hr at 03/06/24 0215, 200 mL/hr at 03/06/24 0215 LORazepam (Ativan) tablet 1 mg, 1 mg, Oral, q1h PRN OR LORazepam (Ativan) injection 1 mg, 1 mg, IntraVENous, q1h PRN OR LORazepam (Ativan) tablet 2 mg, 2 mg, Oral, q1h PRN OR LORazepam (Ativan) injection 2 mg, 2 mg, IntraVENous, q1h PRN, Reeya Morena, DO magnesium sulfate IVPB 4,000 mg, 4,000 mg, IntraVENous, Once, Reeya Morena, DO naloxone (Narcan) 0.4 mg in 0.9% sodium chloride 10 mL syringe, , IntraVENous, PRN, Reeya Morena, DO oxyCODONE (Roxicodone) immediate release tablet 5 mg, 5 mg, Oral, q4h PRN OR oxyCODONE (Roxicodone) immediate release tablet 10 mg, 10 mg, Oral, q4h PRN, Reeya Morena, DO, 10 mg at 03/06/24 0432 polyethylene glycol (PEG) 3350 (Miralax) packet 17 g, 17 g, Oral, Daily PRN, Reeya Morena, DO potassium chloride 40 mEq in NS 500 mL IVPB (premix), 40 mEq, IntraVENous, Once, Reeya Morena, DO prochlorperazine (Compazine) tablet 10 mg, 10 mg, Oral, q6h PRN, 10 mg at 03/05/24 1528 OR prochlorperazine (Compazine) injection 10 mg, 10 mg, IntraVENous, q6h PRN, Reeya Morena, DO, 10 mg at 03/06/24 0215 senna-docusate sodium (Senokot-S) 8.6-50 MG tablet 1 tablet, 1 tablet, Oral, BID, Reeya Morena, DO, 1 tablet at 03/05/242041 thiamine (Vitamin B1) tablet 100 mg, 100 mg, Oral, Daily, Reeya Morena, DO, 100 mg at 03/05/24 0833 Past Medical History: Active Ambulatory Problems Diagnosis Date Noted No Active Ambulatory Problems Resolved Ambulatory Problems Diagnosis Date Noted No Resolved Ambulatory Problems No Additional Past Medical History Past Surgical History: Social History Socioeconomic History Marital status: Single Spouse name: Not on file Number of children: Not on file Years of education: Not on file Highest education level: Not on file Occupational History Not on file Tobacco Use Smoking status: Every Day Current packs/day: 0.50 Types: Cigarettes Smokeless tobacco: Never Substance and Sexual Activity Alcohol use: Not Currently Drug use: Not Currently Sexual activity: Not on file Other Topics Concern Not on file Social History Narrative Not on file Social Determinants of Health Financial Resource Strain: Not on file Food Insecurity: Not on file Transportation Needs: No Transportation Needs (03/04/2024) PRAPARE - Transportation Lack of Transportation (Medical): No Lack of Transportation (Non-Medical): No Physical Activity: Not on file Stress: Not on file Social Connections: Not on file Intimate Partner Violence: Not At Risk (03/04/2024) Humiliation, Afraid, Rape, and Kick questionnaire Fear of Current or Ex-Partner: No Emotionally Abused: No Physically Abused: No Sexually Abused: No Housing Stability: Unknown (03/04/2024) Housing Stability Vital Sign Unable to Pay for Housing in the Last Year: No Number of Times Moved in the Last Year: Not on file Homeless in the Last Year: No Family History: No family history on file. No family history colon or stomach cancer. Social History: TOBACCO: reports that she has been smoking cigarettes. She has never used smokeless tobacco. ETOH: reports that she does not currently use alcohol. DRUGS: reports that she does not currently use drugs. 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 Normal appetite and weight. No NOE, visual disturbance, eye pain, jaundice, sore throat or mouth ulcers. No skin rash or itching. No CP, SOB, TIWARI, cough or wheeze. No urinary frequency, urgency, hematuria, or dysuria. No myalgia, arthralgia, or joint swelling. No weakness, numbness, or confusion. GI per HPI. No polyuria, polydipsia, heat or cold intolerance. PHYSICAL EXAM: VS: BP 106/80 (BP Location: Right arm, Patient Position: Sitting) Pulse 71 Temp 36.4 C (97.5 F) (Temporal) Resp 16 Ht 5' 2 (1.575 m) Wt 135 lb (61.2 kg) SpO2 97% BMI 24.69 kg/m Body mass index is 24.69 kg/m . Constitutional: No acute distress. Well-nourished. Well hydrated Head/Eyes: Pupils are equal and round; Conjunctiva are not injected; Sclera are non-icteric. ENT: Ears/nose without external abnormalities. Oral mucosa is pink and moist. Neck: No JVD. No carotid bruits; No thyromegaly. Respiratory: Clear to auscultation bilaterally without any added sounds. Effort is normal Heart: Regular, Normal S1 and S2. No murmur; No added sounds. Abdomen: Normal BS, soft, TTP epigastric region, non-distended; no hepatomegaly. Extremities/Skin: No LE edema; Skin warm to touch and well perfused. Musculoskeletal: Head - normocephalic. Neck - supple Psychiatric: AAO x 3, answers appropriately, normal mood, normal affect. Non-focal. DATA: Recent blood work and relevant radiologic and endoscopic studies were reviewed and discussed with the patient. CBC: Recent Labs 03/04/24 1405 03/05/24 0602 03/06/24 0437 WBC 14.1* 6.5 5.3 RBC 4.73 3.69* 3.38* HGB 14.0 11.1* 10.1* HCT 43.4 33.9* 30.6* MCV 91.8 91.9 90.5 MCH 29.6 30.1 29.9 MCHC 32.3 32.7 33.0 RDW 13.2 13.3 13.1 PLT 409 240 226 MPV 11.6 12.1 12.1 CMP: Recent Labs 03/04/24 1405 03/05/24 0602 03/06/24 0437 NA 135 134* 134* K 4.0 3.5 3.2* CL 106 112* 107 CO2 17* 18* 21* BUN 12 4* <2* CREATININE 0.76 0.51* 0.39* GLUCOSE 101* 91 78 CALCIUM 9.8 8.3* 7.9* PROT 8.3* 6.0* 5.3* BILITOT 0.7 0.6 0.8 ALKPHOS 188* 138* 121 AST 30 42 26 ALT 24 21 15 PT/INR: Recent Labs 03/05/24 1421 INR 1.[address] abdomen and pelvis with contrast (03/04/24) impression: 1. Findings compatible with pancreatitis, including possible small intraparenchymal pseudocyst and heterogeneous enhancement pattern in the tail region, nonspecific. Correlation with appropriate laboratory values and follow-up to resolution suggested. 2. Hepatic steatosis. 3. Findings which may be due to incomplete or nondistention versus nonspecific postinflammatory change in the ascending and transverse colon of uncertain etiology or chronicity. Follow-up as indicated. 4. Findings which may be associated with pelvic vascular congestion syndrome. RUQ U/S (03/05/24) impression: 1. Status post cholecystectomy, with indwelling biliary stent and mild common bile duct dilatation, as reported. 2. Ovoid, hypoechoic focus adjacent to gallbladder fossa may represent contracted segment of 2nd portion of duodenum. Follow-up as indicated. 3. Findings compatible with fatty infiltration in the liver versus nonspecific hepatocellular disease. Endoscopic Review No EGD/colonoscopy results found on chart review Patient reports having an outpatient colonoscopy years ago, and that she was diagnosed with IBS IMPRESSION/RECOMMENDATIONS: Acute recurrent pancreatitis - CLD, can advance diet as patient tolerates - LR @ 150cc/hr, can decrease as patient has increased PO intake - IgG4 ordered - Encouraged alcohol and tobacco cessation - Recommending outpatient EUS in 3-4 weeks - Continue medical management per primary The GI/Liver consult service will sign off. Please call if there are any questions, concerns or change of patient's GI condition. Thanks. Associated attestation - Raghav Zambrano MD - 03/06/2024 6:45 PM EDT Attending Supervising Physician s Attestation Statement I have personally performed and participated in all the above services (including HPI and PE). I have reviewed the case with Advance Practice Provider (MELVA)/ resident / student, and agreed with the MELVA's / resident / student assessment and plan as above. I have following additions or modifications: I did substantive portion of medical decision making. Recurrent acute pancreatitis. Has a CBD stent for unknown reason. No current jaundice, recommend IV fluids, DVT prophylaxis , start on clear liquids and advance as tolerated. EUS to evaluate pancreas and ERCP to remove stent in 3-4 weeks. Discussed to avoid smoking and EtOH. IGG4 at OSH was negative per patient. Has osmani many years ago. Inpatient GI to sign off , call with questions, recommend aggressive supportive measures as above. [facility] documented in this encounter [facility] 03-05-2024 Plan of care note Problem: Pain - Adult Goal: Verbalizes/displays adequate comfort level or baseline comfort level Outcome: Progressing Problem: Knowledge Deficit Goal: Patient/family/caregiver demonstrates understanding of disease process, treatment plan, medications, and discharge instructions Outcome: Progressing [facility] 03-04-2024 Note NOTE: This result is for medical treatment only. Analysis performed using non-forensic procedures. [facility] 03-04-2024 History and physical note Internal Medicine: Med Team Initial History and Physical Feroz Kaiser : 1990(33 y.o.) Date: March 04, 2024 TEAM: Marta Attending: Dr. Thompson Subjective: Chief Complaint: 1 day of Epigastric Pain, Elevated Lipase HPI Feroz Kaiser is a 33 y.o. female with PMH recurrent pancreatitis s/p cholecystectomy, liver steatosis, IBS, SBO, alcohol induced pancreatitis, alcohol dependence, pleural effusion, and seasonal asthma that presented to [facility] on 03/04/2024 from home for one day of worsening epigastric pain that radiates into her left mid back. She follows with Dr. Basilio, GI specialist at [facility], for recurrent pancreatitis. She saw him outpatient yesterday, Lipase was markedly elevated. He recommended she come to this hospital due to limited resources in [facility]. He recently placed a stent in the bile duct which is set to be removed in March. He recommends she get a pancreatic stent placed. They do not have stents small enough available in their OR. Patient seen in ED waiting room with mother present. States her pain began yesterday and has continued to worsen. States she has nausea - takes Reglan regularly. Poor appetite for three days. Hasn't been able to eat full meals. Denies chest pain, SOB, wheezing, palpitations, dysuria, constipation, diarrhea, light headedness, and dizziness. Denies alcohol use recently and any other drug use. She does smoke cigarettes and would like nicotine replacement. Agree with above. Patient seen and examined at bedside in the AM on 03/05/2024 and appeared uncomfortable. She states that her pain is not currently well-controlled. Due to the pain, her mother provided most of the history. Per the patient's mother, she has been dealing with pancreatitis since November 2023. It was initially attributed to alcohol abuse, however her mother states that she does not drink much. She has had a cholecystectomy and a biliary stent. Her pharmacy customer care specialist recommended an inpatient evaluation and consideration for endoscopic ultrasound. Review of Systems Constitutional: Positive for appetite change (decrease 2/2 nausea) and chills. Negative for activity change, diaphoresis, fatigue and fever. Respiratory: Negative for cough, chest tightness, shortness of breath and wheezing. Cardiovascular: Negative for chest pain, palpitations and leg swelling. Gastrointestinal: Positive for abdominal distention, abdominal pain and nausea. Negative for constipation, diarrhea and vomiting. Endocrine: Negative for polyuria. Genitourinary: Negative for dysuria. Neurological: Positive for headaches. Negative for dizziness, weakness and light-headedness. History reviewed. No pertinent past medical history. History reviewed. No pertinent surgical history. No family history on file. Social History Tobacco Use Smoking Status Every Day Current packs/day: 0.50 Types: Cigarettes Smokeless Tobacco Never Social History Substance and Sexual Activity Alcohol Use Not Currently Social History Substance and Sexual Activity Drug Use Not Currently Allergies Allergen Reactions Morphine And Codeine Nausea And Vomiting Not allergic to morphine Prior to Admission medications Not on File Objective: Vitals: 03/04/24 1243 03/04/24 1306 03/04/24 1307 03/04/24 1530 BP: (!) 137/92 121/81 Pulse: (!) 114 95 Resp: 22 16 Temp: 36.6 C (97.8 F) TempSrc: Temporal Temporal SpO2: 99% 98% Weight: 155 lb (70.3 kg) 135 lb (61.2 kg) Height: 5' 2 (1.575 m) Physical Exam Constitutional: General: She is not in acute distress. Appearance: Normal appearance. She is ill-appearing. She is not toxic-appearing or diaphoretic. Cardiovascular: Rate and Rhythm: Regular rhythm. Tachycardia present. Comments: Likely 2/2 pain Pulmonary: Effort: No respiratory distress. Breath sounds: No wheezing or rales. Chest: Chest wall: No tenderness. Abdominal: General: There is distension. Palpations: Abdomen is soft. Tenderness: There is abdominal tenderness. There is no right CVA tenderness, left CVA tenderness, guarding or rebound. Skin: Capillary Refill: Capillary refill takes less than 2 seconds. Coloration: Skin is pale. Skin is not jaundiced. Neurological: General: No focal deficit present. Mental Status: She is alert and oriented to person, place, and time. Psychiatric: Mood and Affect: Mood normal. Agree with the above physical exam. In addition: Appears uncomfortable on exam and is tearful due to pain. Abdominal tenderness is present throughout the abdomen, however there is no rebound tenderness, guarding or rigidity. [facility] within last 24 hours Auto WBC Date Value Ref Range Status 03/04/2024 14.1 (H) 3.6 - 10.7 10*3/uL Final Hemoglobin Date Value Ref Range Status 03/04/2024 14.0 11.7 - 16.0 g/dL Final Hematocrit Date Value Ref Range Status 03/04/2024 43.4 35.0 - 47.0 % Final Platelets Date Value Ref Range Status 03/04/2024 409 140 - 440 10*3/uL Final MCV Date Value Ref Range Status 03/04/2024 91.8 77.0 - 99.0 fL Final SODIUM Date Value Ref Range Status 03/04/2024 135 135 - 145 mmol/L Final POTASSIUM Date Value Ref Range Status 03/04/2024 4.0 3.5 - 5.1 mmol/L Final CHLORIDE Date Value Ref Range Status 03/04/2024 106 98 - 107 mmol/L Final CARBON DIOXIDE Date Value Ref Range Status 03/04/2024 17 (L) 22 - 30 mmol/L Final UREA NITROGEN Date Value Ref Range Status 03/04/2024 12 7 - 17 mg/dL Final CREATININE Date Value Ref Range Status 03/04/2024 0.76 0.52 - 1.04 mg/dL Final GLUCOSE Date Value Ref Range Status 03/04/2024 101 (H) 70 - 100 mg/dL Final CALCIUM Date Value Ref Range Status 03/04/2024 9.8 8.4 - 10.4 mg/dL Final AST (SGOT) Date Value Ref Range Status 03/04/2024 30 15 - 46 U/L Final ALT Date Value Ref Range Status 03/04/2024 24 0 - 34 U/L Final TOTAL PROTEIN Date Value Ref Range Status 03/04/2024 8.3 (H) 6.3 - 8.2 g/dL Final BILIRUBIN, TOTAL Date Value Ref Range Status 03/04/2024 0.7 0.2 - 1.3 mg/dL Final ALKALINE PHOSPHATASE Date Value Ref Range Status 03/04/2024 188 (H) 38 - 126 U/L Final LIPASE Date Value Ref Range Status 03/04/2024 1,192 (H) 23 - 300 U/L Final No results found for: CKTOTAL , CKMB , TROPONINI No results found for: PROCAL , CHOL , TRIG , HDL , TSH , VITD25 , HGBA1C , VANCOTROUGH Assessment and Plan: Principal Problem: Acute pancreatitis, unspecified complication status, unspecified pancreatitis type Acute on Chronic Pancreatitis Epigastric Pain - Lipase 1,192 - WBC 14.1, HR 114, BP 137/92, RR 22 - CMP WNL, bicarb 17, no anion gap - UA trace ketones. Reflexed for culture, but was poor catch with many squamous cells present - very low suspicion for UTI - Alk phos 188, glucose 101 Plan - CT A/P - Pain management: - Tylenol 650mg Q6H (no transaminitis) - Oxy 2.5-5mg Q4H prn pain (not naive to opiates) - Zofran 4mg Q6H prn nausea - Start on continuous LR - S/P 1L NS bolus - NPO for bowel rest - Consult Surgery - Not on Creon currently - Cont home dicyclomine - Cont protonix Agree. CT with evidence of pancreatitis as well as hepatic steatosis. Checking right upper quadrant ultrasound for further evaluation of biliary system/hepatic steatosis. Synthetic liver function appears to be intact, however will check INR for further evaluation. Consulting GI. Lipid panel with elevated triglycerides however not enough to cause pancreatitis. Other risk factors for pancreatitis include cigarette smoking. Hx Alcoholic Pancreatitis - Ethyl glucuronide and BAL pending - CIWA protocol in place - MAT panel pending - Cont home thiamine and folate Agree. Ethyl glucuronide and alcohol levels negative. UDS was positive for opiates/oxycodone, however this was collected after she had received pain medications. Nicotine Use Disorder - Nicotine patches Seasonal Allergies - Uses albuterol infrequently, no respiratory distress, SOB, wheezing - Cont albuterol prn wheezing and SOB - Goals of Care: FULL CODE - DVT Prophylaxis: Lovenox 40 q24hr - CrCl >30 - GI Prophylaxis: Protonix - Diet: NPO - BMI Classification: Body mass index is 24.69 kg/m . Normal (BMI 18.5-24.9) - Disposition: Admit to [facility]. - Given the signs and symptoms associated with her primary diagnosis in the setting of her comorbid conditions, she is expected to require >48 hrs of hospital care (i.e. inpatient level care). Associated attestation - Reji Thompson DO - 03/05/2024 1:36 PM EDT I have discussed the care of Feroz Kaiser with the medical student and/or resident. I have personally taken a history, examined the patient, and performed the associated medical decision making activities. I have reviewed & verified the attested documentation. Unless otherwise noted below, this documentation reflects the history, physical exam, and medical decision making that I performed myself. Please see note for my personal highlights or additions in Green. Patient seen and examined by myself at 0852 on 03/05/24. Patient was admitted last night by the admitting residents. Today was the first time I physically examined and spoke with the patient. Padron Changes to Care Plan: -33-year-old female admitted for pancreatitis. She has a history of pancreatitis that has been attributed to gallstones versus alcohol use. She reportedly had a cholecystectomy and biliary stent placed in 11/2023. Per the patient's mother, the biliary stent is scheduled to be removed in March 2024. -She was reportedly told by her pharmacy customer care specialist to present to the hospital for further evaluation due to her abdominal pain. Her pharmacy customer care specialist reportedly told her that she would need imaging and an endoscopic ultrasound. -A CT completed in the ED did show findings consistent with pancreatitis as well as hepatic steatosis. A right upper quadrant ultrasound was ordered to further evaluate the biliary system and her hepatic steatosis. Her lipase was elevated at 1192 and she had a leukocytosis. Alk phos was mildly elevated, however AST/ALT and bilirubin were normal. An INR is pending to further evaluate synthetic liver function. -On exam this a.m. she appears uncomfortable and her pain is not well-controlled. Will continue oxycodone 5-10 mg every 4 hours as needed and will add IV Dilaudid 0.5 mg for breakthrough pain. Continue aggressive fluid resuscitation. Continue to monitor for signs of volume overload as previous documentation indicates that she did have ascites in 11/2023. -Reportedly has a history of alcohol abuse, however her mother states that she does not consume much alcohol. Continue CIWA with as needed Ativan (she has not required any Ativan). No current signs of alcohol withdrawal. -Given her history of recurrent pancreatitis with a biliary stent, we will consult GI. 7AM-5PM: contact resident on [facility] Med B team (found by hovering over attending's name on left side of patient's chart) 5PM-7AM: contact AI2 (Med Team A or B) or AI3 (Med Team C or D) 1. Complexity of problems addressed: Acute pancreatitis requiring IV pain control 3. Drug therapy requiring intensive monitoring for toxicity: IV hydromorphone [facility] 03-04-2024 Note Attestation with edits by Reji Thompson DO at 03/05/2024 1:36 PM I have discussed the care of Feroz Kaiser with the medical student and/or resident. I have personally taken a history, examined the patient, and performed the associated medical decision making activities. I have reviewed & verified the attested documentation. Unless otherwise noted below, this documentation reflects the history, physical exam, and medical decision making that I performed myself. Please see note for my personal highlights or additions in Green. Patient seen and examined by myself at 0852 on 03/05/24. Patient was admitted last night by the admitting residents. Today was the first time I physically examined and spoke with the patient. Padron Changes to Care Plan: -33-year-old female admitted for pancreatitis. She has a history of pancreatitis that has been attributed to gallstones versus alcohol use. She reportedly had a cholecystectomy and biliary stent placed in 11/2023. Per the patient's mother, the biliary stent is scheduled to be removed in March 2024. -She was reportedly told by her pharmacy customer care specialist to present to the hospital for further evaluation due to her abdominal pain. Her pharmacy customer care specialist reportedly told her that she would need imaging and an endoscopic ultrasound. -A CT completed in the ED did show findings consistent with pancreatitis as well as hepatic steatosis. A right upper quadrant ultrasound was ordered to further evaluate the biliary system and her hepatic steatosis. Her lipase was elevated at 1192 and she had a leukocytosis. Alk phos was mildly elevated, however AST/ALT and bilirubin were normal. An INR is pending to further evaluate synthetic liver function. -On exam this a.m. she appears uncomfortable and her pain is not well-controlled. Will continue oxycodone 5-10 mg every 4 hours as needed and will add IV Dilaudid 0.5 mg for breakthrough pain. Continue aggressive fluid resuscitation. Continue to monitor for signs of volume overload as previous documentation indicates that she did have ascites in 11/2023. -Reportedly has a history of alcohol abuse, however her mother states that she does not consume much alcohol. Continue CIWA with as needed Ativan (she has not required any Ativan). No current signs of alcohol withdrawal. -Given her history of recurrent pancreatitis with a biliary stent, we will consult GI. 7AM-5PM: contact resident on [facility] Med B team (found by hovering over attending's name on left side of patient's chart) 5PM-7AM: contact AI2 (Med Team A or B) or AI3 (Med Team C or D) 1. Complexity of problems addressed: Acute pancreatitis requiring IV pain control 3. Drug therapy requiring intensive monitoring for toxicity: IV hydromorphone Internal Medicine: Med Team Initial History and Physical Feroz Kaiser : 1990(33 y.o.) Date: March 04, 2024 TEAM: B Attending: Dr. Thompson Subjective: Chief Complaint: 1 day of Epigastric Pain, Elevated Lipase HPI Feroz Kaiser is a 33 y.o. female with PMH recurrent pancreatitis s/p cholecystectomy, liver steatosis, IBS, SBO, alcohol induced pancreatitis, alcohol dependence, pleural effusion, and seasonal asthma that presented to [facility] on 03/04/2024 from home for one day of worsening epigastric pain that radiates into her left mid back. She follows with Dr. Basilio, GI specialist at [facility], for recurrent pancreatitis. She saw him outpatient yesterday, Lipase was markedly elevated. He recommended she come to this hospital due to limited resources in [facility]. He recently placed a stent in the bile duct which is set to be removed in March. He recommends she get a pancreatic stent placed. They do not have stents small enough available in their OR. Patient seen in ED waiting room with mother present. States her pain began yesterday and has continued to worsen. States she has nausea - takes Reglan regularly. Poor appetite for three days. Hasn't been able to eat full meals. Denies chest pain, SOB, wheezing, palpitations, dysuria, constipation, diarrhea, light headedness, and dizziness. Denies alcohol use recently and any other drug use. She does smoke cigarettes and would like nicotine replacement. Agree with above. Patient seen and examined at bedside in the AM on 03/05/2024 and appeared uncomfortable. She states that her pain is not currently well-controlled. Due to the pain, her mother provided most of the history. Per the patient's mother, she has been dealing with pancreatitis since November 2023. It was initially attributed to alcohol abuse, however her mother states that she does not drink much. She has had a cholecystectomy and a bilia (more content not included)... [facility] 03-04-2024 History and physical note Internal Medicine: Med Team Initial History and Physical Feroz Kaiser : 1990(33 y.o.) Date: March 04, 2024 TEAM: B Attending: Dr. Thompson Subjective: Chief Complaint: 1 day of Epigastric Pain, Elevated Lipase HPI Feroz Kaiser is a 33 y.o. female with PMH recurrent pancreatitis s/p cholecystectomy, liver steatosis, IBS, SBO, alcohol induced pancreatitis, alcohol dependence, pleural effusion, and seasonal asthma that presented to [facility] on 03/04/2024 from home for one day of worsening epigastric pain that radiates into her left mid back. She follows with Dr. Basilio, GI specialist at [facility], for recurrent pancreatitis. She saw him outpatient yesterday, Lipase was markedly elevated. He recommended she come to this hospital due to limited resources in [facility]. He recently placed a stent in the bile duct which is set to be removed in March. He recommends she get a pancreatic stent placed. They do not have stents small enough available in their OR. Patient seen in ED waiting room with mother present. States her pain began yesterday and has continued to worsen. States she has nausea - takes Reglan regularly. Poor appetite for three days. Hasn't been able to eat full meals. Denies chest pain, SOB, wheezing, palpitations, dysuria, constipation, diarrhea, light headedness, and dizziness. Denies alcohol use recently and any other drug use. She does smoke cigarettes and would like nicotine replacement. Agree with above. Patient seen and examined at bedside in the AM on 03/05/2024 and appeared uncomfortable. She states that her pain is not currently well-controlled. Due to the pain, her mother provided most of the history. Per the patient's mother, she has been dealing with pancreatitis since November 2023. It was initially attributed to alcohol abuse, however her mother states that she does not drink much. She has had a cholecystectomy and a biliary stent. Her pharmacy customer care specialist recommended an inpatient evaluation and consideration for endoscopic ultrasound. Review of Systems Constitutional: Positive for appetite change (decrease 2/2 nausea) and chills. Negative for activity change, diaphoresis, fatigue and fever. Respiratory: Negative for cough, chest tightness, shortness of breath and wheezing. Cardiovascular: Negative for chest pain, palpitations and leg swelling. Gastrointestinal: Positive for abdominal distention, abdominal pain and nausea. Negative for constipation, diarrhea and vomiting. Endocrine: Negative for polyuria. Genitourinary: Negative for dysuria. Neurological: Positive for headaches. Negative for dizziness, weakness and light-headedness. History reviewed. No pertinent past medical history. History reviewed. No pertinent surgical history. No family history on file. Social History Tobacco Use Smoking Status Every Day Current packs/day: 0.50 Types: Cigarettes Smokeless Tobacco Never Social History Substance and Sexual Activity Alcohol Use Not Currently Social History Substance and Sexual Activity Drug Use Not Currently Allergies Allergen Reactions Morphine And Codeine Nausea And Vomiting Not allergic to morphine Prior to Admission medications Not on File Objective: Vitals: 03/04/24 1243 03/04/24 1306 03/04/24 1307 03/04/24 1530 BP: (!) 137/92 121/81 Pulse: (!) 114 95 Resp: 22 16 Temp: 36.6 C (97.8 F) TempSrc: Temporal Temporal SpO2: 99% 98% Weight: 155 lb (70.3 kg) 135 lb (61.2 kg) Height: 5' 2 (1.575 m) Physical Exam Constitutional: General: She is not in acute distress. Appearance: Normal appearance. She is ill-appearing. She is not toxic-appearing or diaphoretic. Cardiovascular: Rate and Rhythm: Regular rhythm. Tachycardia present. Comments: Likely 2/2 pain Pulmonary: Effort: No respiratory distress. Breath sounds: No wheezing or rales. Chest: Chest wall: No tenderness. Abdominal: General: There is distension. Palpations: Abdomen is soft. Tenderness: There is abdominal tenderness. There is no right CVA tenderness, left CVA tenderness, guarding or rebound. Skin: Capillary Refill: Capillary refill takes less than 2 seconds. Coloration: Skin is pale. Skin is not jaundiced. Neurological: General: No focal deficit present. Mental Status: She is alert and oriented to person, place, and time. Psychiatric: Mood and Affect: Mood normal. Agree with the above physical exam. In addition: Appears uncomfortable on exam and is tearful due to pain. Abdominal tenderness is present throughout the abdomen, however there is no rebound tenderness, guarding or rigidity. [facility] within last 24 hours Auto WBC Date Value Ref Range Status 03/04/2024 14.1 (H) 3.6 - 10.7 10*3/uL Final Hemoglobin Date Value Ref Range Status 03/04/2024 14.0 11.7 - 16.0 g/dL Final Hematocrit Date Value Ref Range Status 03/04/2024 43.4 35.0 - 47.0 % Final Platelets Date Value Ref Range Status 03/04/2024 409 140 - 440 10*3/uL Final MCV Date Value Ref Range Status 03/04/2024 91.8 77.0 - 99.0 fL Final SODIUM Date Value Ref Range Status 03/04/2024 135 135 - 145 mmol/L Final POTASSIUM Date Value Ref Range Status 03/04/2024 4.0 3.5 - 5.1 mmol/L Final CHLORIDE Date Value Ref Range Status 03/04/2024 106 98 - 107 mmol/L Final CARBON DIOXIDE Date Value Ref Range Status 03/04/2024 17 (L) 22 - 30 mmol/L Final UREA NITROGEN Date Value Ref Range Status 03/04/2024 12 7 - 17 mg/dL Final CREATININE Date Value Ref Range Status 03/04/2024 0.76 0.52 - 1.04 mg/dL Final GLUCOSE Date Value Ref Range Status 03/04/2024 101 (H) 70 - 100 mg/dL Final CALCIUM Date Value Ref Range Status 03/04/2024 9.8 8.4 - 10.4 mg/dL Final AST (SGOT) Date Value Ref Range Status 03/04/2024 30 15 - 46 U/L Final ALT Date Value Ref Range Status 03/04/2024 24 0 - 34 U/L Final TOTAL PROTEIN Date Value Ref Range Status 03/04/2024 8.3 (H) 6.3 - 8.2 g/dL Final BILIRUBIN, TOTAL Date Value Ref Range Status 03/04/2024 0.7 0.2 - 1.3 mg/dL Final ALKALINE PHOSPHATASE Date Value Ref Range Status 03/04/2024 188 (H) 38 - 126 U/L Final LIPASE Date Value Ref Range Status 03/04/2024 1,192 (H) 23 - 300 U/L Final No results found for: CKTOTAL , CKMB , TROPONINI No results found for: PROCAL , CHOL , TRIG , HDL , TSH , VITD25 , HGBA1C , VANCOTROUGH Assessment and Plan: Principal Problem: Acute pancreatitis, unspecified complication status, unspecified pancreatitis type Acute on Chronic Pancreatitis Epigastric Pain - Lipase 1,192 - WBC 14.1, HR 114, BP 137/92, RR 22 - CMP WNL, bicarb 17, no anion gap - UA trace ketones. Reflexed for culture, but was poor catch with many squamous cells present - very low suspicion for UTI - Alk phos 188, glucose 101 Plan - CT A/P - Pain management: - Tylenol 650mg Q6H (no transaminitis) - Oxy 2.5-5mg Q4H prn pain (not naive to opiates) - Zofran 4mg Q6H prn nausea - Start on continuous LR - S/P 1L NS bolus - NPO for bowel rest - Consult Surgery - Not on Creon currently - Cont home dicyclomine - Cont protonix Agree. CT with evidence of pancreatitis as well as hepatic steatosis. Checking right upper quadrant ultrasound for further evaluation of biliary system/hepatic steatosis. Synthetic liver function appears to be intact, however will check INR for further evaluation. Consulting GI. Lipid panel with elevated triglycerides however not enough to cause pancreatitis. Other risk factors for pancreatitis include cigarette smoking. Hx Alcoholic Pancreatitis - Ethyl glucuronide and BAL pending - CIWA protocol in place - MAT panel pending - Cont home thiamine and folate Agree. Ethyl glucuronide and alcohol levels negative. UDS was positive for opiates/oxycodone, however this was collected after she had received pain medications. Nicotine Use Disorder - Nicotine patches Seasonal Allergies - Uses albuterol infrequently, no respiratory distress, SOB, wheezing - Cont albuterol prn wheezing and SOB - Goals of Care: FULL CODE - DVT Prophylaxis: Lovenox 40 q24hr - CrCl >30 - GI Prophylaxis: Protonix - Diet: NPO - BMI Classification: Body mass index is 24.69 kg/m . Normal (BMI 18.5-24.9) - Disposition: Admit to [facility]. - Given the signs and symptoms associated with her primary diagnosis in the setting of her comorbid conditions, she is expected to require >48 hrs of hospital care (i.e. inpatient level care). Associated attestation - Reji Thompson DO - 03/05/2024 1:36 PM EDT I have discussed the care of Feroz Kaiser with the medical student and/or resident. I have personally taken a history, examined the patient, and performed the associated medical decision making activities. I have reviewed & verified the attested documentation. Unless otherwise noted below, this documentation reflects the history, physical exam, and medical decision making that I performed myself. Please see note for my personal highlights or additions in Green. Patient seen and examined by myself at 0852 on 03/05/24. Patient was admitted last night by the admitting residents. Today was the first time I physically examined and spoke with the patient. Padron Changes to Care Plan: -33-year-old female admitted for pancreatitis. She has a history of pancreatitis that has been attributed to gallstones versus alcohol use. She reportedly had a cholecystectomy and biliary stent placed in 11/2023. Per the patient's mother, the biliary stent is scheduled to be removed in March 2024. -She was reportedly told by her pharmacy customer care specialist to present to the hospital for further evaluation due to her abdominal pain. Her pharmacy customer care specialist reportedly told her that she would need imaging and an endoscopic ultrasound. -A CT completed in the ED did show findings consistent with pancreatitis as well as hepatic steatosis. A right upper quadrant ultrasound was ordered to further evaluate the biliary system and her hepatic steatosis. Her lipase was elevated at 1192 and she had a leukocytosis. Alk phos was mildly elevated, however AST/ALT and bilirubin were normal. An INR is pending to further evaluate synthetic liver function. -On exam this a.m. she appears uncomfortable and her pain is not well-controlled. Will continue oxycodone 5-10 mg every 4 hours as needed and will add IV Dilaudid 0.5 mg for breakthrough pain. Continue aggressive fluid resuscitation. Continue to monitor for signs of volume overload as previous documentation indicates that she did have ascites in 11/2023. -Reportedly has a history of alcohol abuse, however her mother states that she does not consume much alcohol. Continue CIWA with as needed Ativan (she has not required any Ativan). No current signs of alcohol withdrawal. -Given her history of recurrent pancreatitis with a biliary stent, we will consult GI. 7AM-5PM: contact resident on [facility] Med B team (found by hovering over attending's name on left side of patient's chart) 5PM-7AM: contact [facility]2 (Med Team A or B) or AI3 (Med Team C or D) 1. Complexity of problems addressed: Acute pancreatitis requiring IV pain control 3. Drug therapy requiring intensive monitoring for toxicity: IV hydromorphone documented in this encounter [facility] 03-04-2024 Emergency department Note EMERGENCY DEPARTMENT ENCOUNTER Pt Name: Feroz Kaiser Birthdate 1990 Date of evaluation: 03/04/2024 ED Provider: Di Valerio PA-C CHIEF COMPLAINT Chief Complaint Patient presents with Abdominal Pain RUQ abd pain since november 20 admission for pancreatitis HISTORY OF PRESENT ILLNESS (Location/Symptom, Timing/Onset, Context/Setting, Quality, Duration, Modifying Factors, Severity) Note limiting factors. I wore appropriate PPE for the entirety of this encounter. HPI Feroz Kaiser is a 33 y.o. female who presents to the emergency department for evaluation of upper quadrant abdominal pain that started yesterday. Patient reports that she has a known history of recurrent pancreatitis and is following with Dr. Mcghee out of the [facility]. States that the pain started yesterday. They believe that it may be due to gallstones although patient reports she had a cholecystectomy many years ago. States that she did have a recent stent placed to help with pancreatitis. States that Dr. Mcghee recommended she come to [facility] as we have further resources for GI. Reports that she is also having nausea, vomiting, diarrhea. Denies any fever or chills. Nursing Notes were reviewed. Limitations to history: None Outside historians: None REVIEW OF SYSTEMS Review of Systems 8 systems reviewed, positives and pertinent negatives as per HPI. All other systems were reviewed and are negative. PAST MEDICAL HISTORY History reviewed. No pertinent past medical history. SURGICAL HISTORY History reviewed. No pertinent surgical history. CURRENT MEDICATIONS Previous Medications No medications on file ALLERGIES Morphine and codeine FAMILY HISTORY No family history on file. SOCIAL HISTORY Social History Socioeconomic History Marital status: Single Tobacco Use Smoking status: Every Day Current packs/day: 0.50 Types: Cigarettes Smokeless tobacco: Never Substance and Sexual Activity Alcohol use: Not Currently Drug use: Not Currently SCREENINGS PHYSICAL EXAM ED Triage Vitals Temp Heart Rate Resp BP 03/04/24 1306 03/04/24 1306 03/04/24 1306 03/04/24 1306 36.6 C (97.8 F) (!) 114 22 (!) 137/92 SpO2 Temp Source Heart Rate Source Patient Position 03/04/24 1306 03/04/24 1306 03/04/24 1306 03/04/24 1307 99 % Temporal Monitor Sitting BP Location FiO2 (%) 03/04/24 1307 -- Left arm Physical Exam Vitals and nursing note reviewed. Constitutional: General: She is not in acute distress. Appearance: She is not toxic-appearing. Comments: 33-year-old female who appears to be in discomfort. HENT: Head: Normocephalic and atraumatic. Cardiovascular: Rate and Rhythm: Regular rhythm. Tachycardia present. Heart sounds: Normal heart sounds. Pulmonary: Effort: Pulmonary effort is normal. Abdominal: Comments: Abdomen soft and nonrigid. Tenderness to palpation of the posterior localization of the epigastric and RUQ region. Mild guarding noted throughout. No rebound tenderness noted. Skin: General: Skin is warm and dry. Capillary Refill: Capillary refill takes less than 2 seconds. Neurological: General: No focal deficit present. Mental Status: She is alert and oriented to person, place, and time. Psychiatric: Mood and Affect: Mood normal. DIAGNOSTIC RESULTS RADIOLOGY (Per Emergency Physician): Interpretation per the Radiologist below, if available at the time of this note: No orders to display LABS: Labs Reviewed CBC WITH AUTO DIFFERENTIAL - Abnormal Result Value Auto WBC 14.1 (*) RBC 4.73 Hemoglobin 14.0 Hematocrit 43.4 MCV 91.8 MCH 29.6 MCHC 32.3 RDW 13.2 Platelets 409 MPV 11.6 nRBC 0.0 Neutrophils Relative 68.5 Lymphocytes Relative 23.2 Monocytes Relative 4.5 (*) Eosinophils Relative 3.0 Basophils Relative 0.4 Immature Grans % 0.4 Neutrophils Absolute 9.7 (*) Lymphocytes Absolute 3.3 Monocytes Absolute 0.6 Eosinophils Absolute 0.4 Basophils Absolute 0.1 Immature Grans Absolute 0.1 (*) IPF 8 LIPASE - Abnormal LIPASE 1,192 (*) BASIC METABOLIC PANEL - Abnormal SODIUM 135 POTASSIUM 4.0 CHLORIDE 106 CARBON DIOXIDE 17 (*) UREA NITROGEN 12 CREATININE 0.76 GLUCOSE 101 (*) CALCIUM 9.8 ANION GAP 11 eGFR >90.0 HEPATIC FUNCTION PANEL - Abnormal BILIRUBIN, TOTAL 0.7 BILIRUBIN, DIRECT 0.0 ALKALINE PHOSPHATASE 188 (*) AST (SGOT) 30 ALT 24 ALBUMIN 4.3 TOTAL PROTEIN 8.3 (*) COMPLETE URINALYSIS - Abnormal Color, Urine Yellow Clarity, Urine Turbid (*) pH, Urine 5.5 Leukocytes, Urine 75 (*) Nitrite, Urine Negative Protein, Urine 30 (*) Glucose, Urine Normal Bilirubin, Urine Negative Ketones, Urine Trace (*) Urobilinogen, Urine 2 (*) Blood, Urine Negative RBC, Urine 0-2 WBC, Urine 11-25 (*) Squamous Epithelial, Urine 11-25 (*) Bacteria, Urine Moderate (*) Mucus, Urine Few Hyaline Casts, Urine 0-2 (*) WBC Casts, Urine 3-5 (*) SPECIFIC GRAVITY OF URINE (NUMERIC) 1.027 URINE CULTURE COMPLETE URINALYSIS WITH REFLEX TO CULTURE Narrative: The following orders were created for panel order Urinalysis Complete with reflex to Culture. Procedure Abnormality Status --------- ------ Complete Urinalysis[[id number]] Abnormal Final result Please view results for these tests on the individual orders. HCG QUANTITATIVE BLOOD LACTIC ACID WITH REFLEX All other labs were within normal range or not returned as of this dictation. EMERGENCY DEPARTMENT COURSE and DIFFERENTIAL DIAGNOSIS/MDM: Vitals: Vitals: 03/04/24 1243 03/04/24 1306 03/04/24 1307 BP: (!) 137/92 Pulse: (!) 114 Resp: 22 Temp: 36.6 C (97.8 F) TempSrc: Temporal Temporal SpO2: 99% Weight: 70.3 kg (155 lb) 61.2 kg (135 lb) Height: 1.575 m (5' 2 ) Medications morphine injection 4 mg (4 mg IntraVENous Given 03/04/24 1409) ondansetron (Zofran) injection 4 mg (4 mg IntraVENous Given 03/04/24 1409) sodium chloride 0.9 % bolus 1,000 mL (1,000 mL IntraVENous New Bag 03/04/24 1409) ED care was supervised by Dr. Turner who independently examined and evaluated the patient. Please see their attestation note for further details. In brief, Feroz Kaiser is a 33 y.o. female who presented to the emergency department for evaluation of epigastric abdominal pain, nausea, vomiting, diarrhea that started 1 day ago with a known history of recurrent pancreatitis. See HPI further details. Nursing notes and medical records reviewed, patient has been following with Dr. Mcghee of [facility]. Note from yesterday notes that patient was diagnosed with abdominal pain as well as calculus of bile duct. Differential considerations included pancreatitis, gastritis, PUD, hepatitis, colitis. Initial medical management includes IV fluids, morphine, Zofran. Initial workup includes CBC, BMP, lipase, hepatic function panel, urinalysis, urine hCG. Upon reassessment patient experiencing relief after the pain medications and antiemetics are given. Lab workup results CBC shows leukocytosis of 14.4. Hepatic function shows mild elevation of alk phos of 188 with no other significant transaminitis noted. BMP shows no significant electrolyte abnormalities. Lipase elevated at 1192. Chronic conditions contributing to patients presentation include recurrent pancreatitis. Social determinants to care: Lack of PCP. Diagnosis acute pancreatitis. Disposition admission to medical floor for management of acute pancreatitis with a GI consultation as . Friend of [facility] did recommend patient be admitted here as her GI specialist have further imaging and services they could offer her an relation to recurrent pancreatitis. Patient admitted in stable condition. PROCEDURES: Unless otherwise noted below, none Procedures FINAL IMPRESSION 1. Acute pancreatitis, unspecified complication status, unspecified pancreatitis type DISPOSITION Admit 03/04/2024 02:49:50 PM PATIENT REFERRED TO: No follow-up provider specified. DISCHARGE MEDICATIONS: New Prescriptions No medications on file (Comment: Please note this report has been produced using speech recognition software and may contain errors related to that system including errors in grammar, punctuation, and spelling, as well as words and phrases that may be inappropriate. If there are any questions or concerns please feel free to contact the dictating provider for clarification.) Di Valerio PA-C (electronically signed) Emergency Medicine Provider Di Valerio PA-C 03/04/24 1614 Emergency Department Encounter [facility] EMERGENCY DEPT Patient: Feroz Kaiser : 1990 Date of Evaluation: 03/04/2024 ED Provider: Henry Turner MD I saw the patient as the Clinician in Triage and established acuity, and ordered appropriate tests to develop basic plan of care. Patient will be seen by MELVA who will evaluate the patient.. I did revise the MELVA I wore appropriate PPE for the entirety of this encounter. Brief HPI: In brief, Feroz Kaiser is a 33 y.o. that presents with chief complaint of abdominal pain. Patient has history of pancreatitis. States her GI doctor feels that she needs evaluated here because she may need specialized testing that her GI doctor could not provide. Complains of recurrent pancreatitis pain of uncertain etiology. She has nausea vomiting diarrhea. No fevers. Focused Physical exam: Awake and alert. Afebrile. Nontoxic. Lungs clear to auscultation. Heart regular rate and rhythm. Abdomen soft nondistended with tenderness across the upper abdomen. Plan/MDM: Lab studies obtained. Lipase is 1100. White count of 14. Lab studies reviewed by this examiner. I do feel patient needs to be admitted for pain control and for further treatment of pancreatitis. Patients symptoms are consistent with sepsis, severe sepsis, or septic shock (If yes use .sepsiscoremeasure ): no Please see subsequent provider note for further details and disposition This will serve as my Supervisory note and shared attestation. I did perform a substantive portion of the visit including all aspects of the Medical Decision Making. All diagnostic, treatment, and disposition decisions were made by myself in conjunction with the MELVA. For all further details of the patient's emergency department visit, please see their documentation. (Comment: Please note this report has been produced using speech recognition software and may contain errors related to that system including errors in grammar, punctuation, and spelling as well as words and phrases that may be inappropriate. If there are any questions or concerns please feel free to contact the dictating provider for clarification) Henry Turner MD Acute Care [facility] Henry Turner MD 03/04/24 1543 documented in this encounter [facility] 03-04-2024 Physician Emergen cy department Note EMERGENCY DEPARTMENT ENCOUNTER Pt Name: Feroz Kaiser Birthdate 1990 Date of evaluation: 03/04/2024 ED Provider: Di Valerio PA-C CHIEF COMPLAINT Chief Complaint Patient presents with Abdominal Pain RUQ abd pain since november 20 admission for pancreatitis HISTORY OF PRESENT ILLNESS (Location/Symptom, Timing/Onset, Context/Setting, Quality, Duration, Modifying Factors, Severity) Note limiting factors. I wore appropriate PPE for the entirety of this encounter. HPI Feroz Kaiser is a 33 y.o. female who presents to the emergency department for evaluation of upper quadrant abdominal pain that started yesterday. Patient reports that she has a known history of recurrent pancreatitis and is following with Dr. Mcghee out of the [facility]. States that the pain started yesterday. They believe that it may be due to gallstones although patient reports she had a cholecystectomy many years ago. States that she did have a recent stent placed to help with pancreatitis. States that Dr. Mcghee recommended she come to [facility] as we have further resources for GI. Reports that she is also having nausea, vomiting, diarrhea. Denies any fever or chills. Nursing Notes were reviewed. Limitations to history: None Outside historians: None REVIEW OF SYSTEMS Review of Systems 8 systems reviewed, positives and pertinent negatives as per HPI. All other systems were reviewed and are negative. PAST MEDICAL HISTORY History reviewed. No pertinent past medical history. SURGICAL HISTORY History reviewed. No pertinent surgical history. CURRENT MEDICATIONS Previous Medications No medications on file ALLERGIES Morphine and codeine FAMILY HISTORY No family history on file. SOCIAL HISTORY Social History Socioeconomic History Marital status: Single Tobacco Use Smoking status: Every Day Current packs/day: 0.50 Types: Cigarettes Smokeless tobacco: Never Substance and Sexual Activity Alcohol use: Not Currently Drug use: Not Currently SCREENINGS PHYSICAL EXAM ED Triage Vitals Temp Heart Rate Resp BP 03/04/24 1306 03/04/24 1306 03/04/24 1306 03/04/24 1306 36.6 C (97.8 F) (!) 114 22 (!) 137/92 SpO2 Temp Source Heart Rate Source Patient Position 03/04/24 1306 03/04/24 1306 03/04/24 1306 03/04/24 1307 99 % Temporal Monitor Sitting BP Location FiO2 (%) 03/04/24 1307 -- Left arm Physical Exam Vitals and nursing note reviewed. Constitutional: General: She is not in acute distress. Appearance: She is not toxic-appearing. Comments: 33-year-old female who appears to be in discomfort. HENT: Head: Normocephalic and atraumatic. Cardiovascular: Rate and Rhythm: Regular rhythm. Tachycardia present. Heart sounds: Normal heart sounds. Pulmonary: Effort: Pulmonary effort is normal. Abdominal: Comments: Abdomen soft and nonrigid. Tenderness to palpation of the posterior localization of the epigastric and RUQ region. Mild guarding noted throughout. No rebound tenderness noted. Skin: General: Skin is warm and dry. Capillary Refill: Capillary refill takes less than 2 seconds. Neurological: General: No focal deficit present. Mental Status: She is alert and oriented to person, place, and time. Psychiatric: Mood and Affect: Mood normal. DIAGNOSTIC RESULTS RADIOLOGY (Per Emergency Physician): Interpretation per the Radiologist below, if available at the time of this note: No orders to display LABS: Labs Reviewed CBC WITH AUTO DIFFERENTIAL - Abnormal Result Value Auto WBC 14.1 (*) RBC 4.73 Hemoglobin 14.0 Hematocrit 43.4 MCV 91.8 MCH 29.6 MCHC 32.3 RDW 13.2 Platelets 409 MPV 11.6 nRBC 0.0 Neutrophils Relative 68.5 Lymphocytes Relative 23.2 Monocytes Relative 4.5 (*) Eosinophils Relative 3.0 Basophils Relative 0.4 Immature Grans % 0.4 Neutrophils Absolute 9.7 (*) Lymphocytes Absolute 3.3 Monocytes Absolute 0.6 Eosinophils Absolute 0.4 Basophils Absolute 0.1 Immature Grans Absolute 0.1 (*) IPF 8 LIPASE - Abnormal LIPASE 1,192 (*) BASIC METABOLIC PANEL - Abnormal SODIUM 135 POTASSIUM 4.0 CHLORIDE 106 CARBON DIOXIDE 17 (*) UREA NITROGEN 12 CREATININE 0.76 GLUCOSE 101 (*) CALCIUM 9.8 ANION GAP 11 eGFR >90.0 HEPATIC FUNCTION PANEL - Abnormal BILIRUBIN, TOTAL 0.7 BILIRUBIN, DIRECT 0.0 ALKALINE PHOSPHATASE 188 (*) AST (SGOT) 30 ALT 24 ALBUMIN 4.3 TOTAL PROTEIN 8.3 (*) COMPLETE URINALYSIS - Abnormal Color, Urine Yellow Clarity, Urine Turbid (*) pH, Urine 5.5 Leukocytes, Urine 75 (*) Nitrite, Urine Negative Protein, Urine 30 (*) Glucose, Urine Normal Bilirubin, Urine Negative Ketones, Urine Trace (*) Urobilinogen, Urine 2 (*) Blood, Urine Negative RBC, Urine 0-2 WBC, Urine 11-25 (*) Squamous Epithelial, Urine 11-25 (*) Bacteria, Urine Moderate (*) Mucus, Urine Few Hyaline Casts, Urine 0-2 (*) WBC Casts, Urine 3-5 (*) SPECIFIC GRAVITY OF URINE (NUMERIC) 1.027 URINE CULTURE COMPLETE URINALYSIS WITH REFLEX TO CULTURE Narrative: The following orders were created for panel order Urinalysis Complete with reflex to Culture. Procedure Abnormality Status --------- ------ Complete Urinalysis[[id number]] Abnormal Final result Please view results for these tests on the individual orders. HCG QUANTITATIVE BLOOD LACTIC ACID WITH REFLEX All other labs were within normal range or not returned as of this dictation. EMERGENCY DEPARTMENT COURSE and DIFFERENTIAL DIAGNOSIS/MDM: Vitals: Vitals: 03/04/24 1243 03/04/24 1306 03/04/24 1307 BP: (!) 137/92 Pulse: (!) 114 Resp: 22 Temp: 36.6 C (97.8 F) TempSrc: Temporal Temporal SpO2: 99% Weight: 70.3 kg (155 lb) 61.2 kg (135 lb) Height: 1.575 m (5' 2 ) Medications morphine injection 4 mg (4 mg IntraVENous Given 03/04/24 1409) ondansetron (Zofran) injection 4 mg (4 mg IntraVENous Given 03/04/24 1409) sodium chloride 0.9 % bolus 1,000 mL (1,000 mL IntraVENous New Bag 03/04/24 1409) ED care was supervised by Dr. Turner who independently examined and evaluated the patient. Please see their attestation note for further details. In brief, Feroz Kaiser is a 33 y.o. female who presented to the emergency department for evaluation of epigastric abdominal pain, nausea, vomiting, diarrhea that started 1 day ago with a known history of recurrent pancreatitis. See HPI further details. Nursing notes and medical records reviewed, patient has been following with Dr. Mcghee of [facility]. Note from yesterday notes that patient was diagnosed with abdominal pain as well as calculus of bile duct. Differential considerations included pancreatitis, gastritis, PUD, hepatitis, colitis. Initial medical management includes IV fluids, morphine, Zofran. Initial workup includes CBC, BMP, lipase, hepatic function panel, urinalysis, urine hCG. Upon reassessment patient experiencing relief after the pain medications and antiemetics are given. Lab workup results CBC shows leukocytosis of 14.4. Hepatic function shows mild elevation of alk phos of 188 with no other significant transaminitis noted. BMP shows no significant electrolyte abnormalities. Lipase elevated at 1192. Chronic conditions contributing to patients presentation include recurrent pancreatitis. Social determinants to care: Lack of PCP. Diagnosis acute pancreatitis. Disposition admission to medical floor for management of acute pancreatitis with a GI consultation as Dr. Mcghee of [facility] did recommend patient be admitted here as her GI specialist have further imaging and services they could offer her an relation to recurrent pancreatitis. Patient admitted in stable condition. PROCEDURES: Unless otherwise noted below, none Procedures FINAL IMPRESSION 1. Acute pancreatitis, unspecified complication status, unspecified pancreatitis type DISPOSITION Admit 03/04/2024 02:49:50 PM PATIENT REFERRED TO: No follow-up provider specified. DISCHARGE MEDICATIONS: New Prescriptions No medications on file (Comment: Please note this report has been produced using speech recognition software and may contain errors related to that system including errors in grammar, punctuation, and spelling, as well as words and phrases that may be inappropriate. If there are any questions or concerns please feel free to contact the dictating provider for clarification.) Di Valerio PA-C (electronically signed) Emergency Medicine Provider Di Valerio PA-C 03/04/24 1614 [facility] 03-04-2024 Physician Emergen cy department Note Emergency Department Encounter [facility] EMERGENCY DEPT Patient: Feroz Kaiser : 1990 Date of Evaluation: 03/04/2024 ED Provider: Henry Turner MD I saw the patient as the Clinician in Triage and established acuity, and ordered appropriate tests to develop basic plan of care. Patient will be seen by MELVA who will evaluate the patient.. I did revise the MELVA I wore appropriate PPE for the entirety of this encounter. Brief HPI: In brief, Feroz Kaiser is a 33 y.o. that presents with chief complaint of abdominal pain. Patient has history of pancreatitis. States her GI doctor feels that she needs evaluated here because she may need specialized testing that her GI doctor could not provide. Complains of recurrent pancreatitis pain of uncertain etiology. She has nausea vomiting diarrhea. No fevers. Focused Physical exam: Awake and alert. Afebrile. Nontoxic. Lungs clear to auscultation. Heart regular rate and rhythm. Abdomen soft nondistended with tenderness across the upper abdomen. Plan/MDM: Lab studies obtained. Lipase is 1100. White count of 14. Lab studies reviewed by this examiner. I do feel patient needs to be admitted for pain control and for further treatment of pancreatitis. Patients symptoms are consistent with sepsis, severe sepsis, or septic shock (If yes use .sepsiscoremeasure ): no Please see subsequent provider note for further details and disposition This will serve as my Supervisory note and shared attestation. I did perform a substantive portion of the visit including all aspects of the Medical Decision Making. All diagnostic, treatment, and disposition decisions were made by myself in conjunction with the MELVA. For all further details of the patient's emergency department visit, please see their documentation. (Comment: Please note this report has been produced using speech recognition software and may contain errors related to that system including errors in grammar, punctuation, and spelling as well as words and phrases that may be inappropriate. If there are any questions or concerns please feel free to contact the dictating provider for clarification) Henry Turner MD Acute Care [facility] Henry Turner MD 03/04/24 1543 [employer] Phone: 12-02-2023 Discharge summary Date of Service 12/02/2023 Discharge Diagnosis Acute uncomplicated Pancreatitis likely secondary to alcohol use Abdominal pain Small bowel obstruction Enteritis with wall thickening of terminal ileum and distal ileum infectious versus inflammatory Acute on chronic diarrhea Severe hypokalemia Mild hyponatremia Normocytic anemia Hypoalbuminemia Bilateral pleural effusion likely reactive secondary to pancreatitis improved Asthma not in exacerbation Irritable bowel syndrome Hepatic steatosis Alcohol use Hospital Course Patient is 33-year-old female with a history of alcohol alcohol use, asthma, GERD, chronic diarrhea and anxiety who was initially admitted to [facility] on 11/23/2023 where she presented with abdominal pain and found to have leukocytosis, elevated lipase and imaging consistent with pancreatitis as well as enteritis. She has being treated with IV Zosyn, IV fluid resuscitation and analgesics and was slowly started on clear liquid diet that she was not able to tolerate with abdominal x-ray concerning for ileus versus SBO requiring transient NG tube placement that was later discontinued because of patient's insistence. Repeat imaging is consistent with pancreatitis, concern for pleural effusion and ascites. Because of patient's persistent abdominal pain and general surgery evaluation, she was transferred to [facility] on 11/28/2023 and admitted under hospitalist service with gastroenterology and general surgery on consultation. Her LFTs were otherwise unremarkable. Triglycerides were also not significantly elevated. GI also evaluated patient and cause for her pancreatitis presumed likely secondary to alcohol use. Ultrasound abdomen did not show any evidence of cholelithiasis and showed only trace perihepatic ascites. There was also concern for medication seeking behavior as per documentation. She did receive antibiotics during her stay including IV Zosyn at [place] and ceftriaxone and metronidazole during her stay in [facility]. General surgery evaluated, recommended conservative management and patient was started on clear liquid diet that she tolerated adequately and was having bowel movements and passing flatus. Gastroenterology was also following and patient did receive enema. She was also having acute on chronic diarrhea for which C. difficile PCR and stool GI panel was negative that continued to improve slowly and her stools were getting formed prior to discharge. Her electrolytes were replaced aggressively. Given her ongoing pain, CT scan abdomen/pelvis was repeated and findings were consistent with pancreatitis without necrosis/abscess/pseudocyst, improving inflammatory changes in jejunum and proximal ileum, concern for low-grade SBO. General surgery had signed off and recommended okay to advance diet. Gastroenterology recommended outpatient follow-up for colonoscopy evaluation. She was otherwise afebrile and hemodynamically stable. She did have mild off-and-on residual abdominal pain however improved over last few days and was tolerating soft diet adequately without any nausea/vomiting. She was also passing flatus and having regular bowel movements. OARRS was reviewed and She was given short prescription for Percocet. She was otherwise ambulating in the gee without any difficulty. Patient was instructed to come back to ER if she develops worsening abdominal pain, nausea/vomiting. Patient was extensively counseled on avoiding alcohol use and importance of close follow-up with gastroenterology and primary care physician. Patient was subsequently discharged home. Plan was discussed with patient and mother over the phone and they verbalized understanding. Allergies codeine Nausea Consults Consult to Physician - Ordered -- 11/28/23 20:44:00 EDT, WENCESLAO HO MD, Routine, psbo Consult to Physician (Physician Consult) - Ordered -- 11/29/23 7:46:00 EDT, BHASKAR DE PAZ MD, Routine, possible sbo- [employer] publicity person when consult placed Imaging Results and Diagnostics CT Abdomen/Pelvis w/Contrast Result Date: November 30, 2023 Verified By: MARTÍN GAGE MD CLINICAL STATEMENT: IMPRESSION: 1. Redemonstrated findings of acute edematous interstitial pancreatitis. Nodefinite evidence of pancreatic necrosis, peripancreatic cyst/abscess.2. Interval improvement in jejunum and proximal ileal enteritis. Nosignificant change in long segment terminal ileum enteritis.3. Multiple moderately dilated fluid and gas filled loops of small bowel areagain noted, suggestive of low-grade small bowel obstruction in setting ofterminal ileitis.4. Mild improvement in abdominopelvic ascites.5. Prominent retroperitoneal lymph nodes are likely reactive in nature.6. Moderate right and small left pleural effusion, mildly improved.7. Hepatic steatosis and/or diffuse hepatocellular disease.I have personally reviewed the images of this examination and agree with theresident's finding and interpretation. XR Chest 1 View Result Date: November 30, 2023 Verified By: GHANSHYAM LAZCANO MD CLINICAL STATEMENT: IMPRESSION: No evidence of an acute process. No sizable pleural effusion is seen. US Abdomen Complete Result Date: November 29, 2023 Verified By: ABDIRAHMAN SEXTON MD CLINICAL STATEMENT: IMPRESSION: Steatosis or other diffuse hepatocellular disease. Trace perihepatic ascites. Likely small left pleural effusion. Physical Exam Vitals and Measurements T: 37.0 C (Oral) TMIN: 36.9 C (Oral) TMAX: 37.0 C (Oral) HR: 93 RR: 18 BP: 114/77 SpO2: 98% Weight Dosing Weight: 81.4 kg (11/28/23) General: Patient is not in acute distress Neck: Supple, No JVD HEENT: Normocephalic, atraumatic, moist mucous membranes Cardiac: Regular rate and rhythm, S1 and S2 present, Lungs: Clear to auscultation bilaterally, no wheezes, rhonchi, or rales appreciated Abdomen: Bowel sounds present, abdomen is soft, significantly improved tenderness, no guarding or rigidity, Musculoskeletal: Preserved ROM in all 4 extremities Extremities: No clubbing or cyanosis, pitting edema Skin: Warm, well perfused, no bruises Neurological: Alert and orientated x3, No gross focal neurological deficits Code Status No qualifying data available. Admission Date 11/28/2023 Discharge Date 12/02/2023 Patient Instructions Please take your medications as prescribed and follow-up with your primary care physician as well as gastroenterology as you will need colonoscopy evaluation in the outpatient setting. Also follow-up with general surgery after discharge. Please use Ensure supplements on daily basis. If you develop worsening abdominal pain, fever, nausea/vomiting and inability to have bowel movements, please come to nearest ER immediately. Medications New Prescription acetaminophen-oxyCODONE (Percocet 5 mg-325 mg oral tablet)1 tab(s) by mouth every 6 hours as needed Pain, scale 7-10 for 3 Days. Refills: 0. folic acid (folic acid 1 mg oral tablet)1 tab(s) by mouth once a day for 30 Days. Refills: 0. thiamine (Vitamin B1 100 mg oral tablet)1 tab(s) by mouth once a day for 30 Days. Refills: 0. Unchanged albuterol (albuterol MDI (90 mcg/inh) CFC free inhalation aerosol)2 puff(s) by inhalation every 4 hours as needed as needed for wheezing. Refills: 0. pantoprazole (Protonix)40 Milligram IV Push once a day before a meal. Follow Up Follow Up with WENCESLAO HO MD, Surgery When: Where:[address] [facility] [address] [place] [address] [phone] Why: Call office for appointment Follow Up with BHASKAR DE PAZ MD When: When:In 1 week Where:[address] [place] [address] [phone] Why: Call for appointment Follow Up with LISSA HOOD MD, Surgery When: When:In 2 weeks Where:[address] [facility] [address] [place] [address]- Why: Please call the office to schedule a follow-up appointment Follow Up with FAMILY GADIEL APPIAH When: Where:[address] [place] [address]- [phone] Why: Call for appointment Follow Up with Call MALVIN Cai Pt. Refferral [phone] When: Follow Up Appointments No qualifying data available. Follow Up Labs/Studies Discharge Labs Discharge Outpatient Labwork - Ordered -- CBC, Anemia, follow-up within: 3-5 days, Results Notify to: FAMILY GADIEL APPIAH, 12/02/23 13:01:00 EDT Discharge Studies No Follow-up Studies Discharge Diet Discharge Diet - Ordered -- Type of Diet: Soft Diet, 12/02/23 13:01:00 EDT Discharge Activity Discharge Activity - Ordered -- Activity As Tolerated, 12/02/23 13:01:00 EDT Condition on Discharge Fair Discharge Disposition Home Information Provided To Mother Time Spent 32 minutes with >50% of the time spent counseling patient and/or coordinating care. Discussed plan of care with patient and nursing. Discussed with gastroenterology. Digitally Signed by JUICE CHACKO MD on 12/02/2023 06:10 PM [facility] 12-02-2023 Hospital Discharg e instructions Patient Education 12/02/2023 13:10:32 Acute Pancreatitis, [id number] Acute Pancreatitis Acute pancreatitis happens when the pancreas gets swollen. The pancreas is a large gland in the body that helps to control blood sugar. It also makes enzymes that help to digest food. This condition can last a few days and cause serious problems. The lungs, heart, and kidneys may stop working. What are the causes? Causes include: Alcohol abuse. Drug abuse. Gallstones. A tumor in the pancreas. Other causes include: Some medicines. Some chemicals. Diabetes. An infection. Damage caused by an accident. The poison (venom) from a scorpion bite. Belly (abdominal) surgery. The body's defense system (immune system) attacking the pancreas (autoimmune pancreatitis). Genes that are passed from parent to child (inherited). In some cases, the cause is not known. What are the signs or symptoms? Pain in the upper belly that may be felt in the back. The pain may be very bad. Swelling of the belly. Feeling sick to your stomach (nauseous) and throwing up (vomiting). Fever. How is this treated? You will likely have to stay in the hospital. Treatment may include: Pain medicine. Fluid through an IV tube. Placing a tube in the stomach to take out the stomach contents. This may help you stop throwing up. Not eating for 3 4 days. Antibiotic medicines, if you have an infection. Treating any other problems that may be the cause. Steroid medicines, if your problem is caused by your defense system attacking your body's own tissues. Surgery. Follow these instructions at home: Eating and drinking Follow instructions from your doctor about what to eat and drink. Eat foods that do not have a lot of fat in them. Eat small meals often. Do not eat big meals. Drink enough fluid to keep your pee (urine) pale yellow. Do not drink alcohol if it caused your condition. Medicines Take xpgk-mci-ylqopsw and prescription medicines only as told by your doctor. Ask your doctor if the medicine prescribed to you: ?Requires you to avoid driving or using heavy machinery. ?Can cause trouble pooping (constipation). You may need to take steps to prevent or treat trouble pooping: ?Take cmtv-hfa-yituwrb or prescription medicines. ?Eat foods that are high in fiber. These include beans, whole grains, and fresh fruits and vegetables. ?Limit foods that are high in fat and sugar. These include fried or sweet foods. General instructions Do not use any products that contain nicotine or tobacco, such as cigarettes, e-cigarettes, and chewing tobacco. If you need help quitting, ask your doctor. Get plenty of rest. Check your blood sugar at home as told by your doctor. Keep all follow-up visits as told by your doctor. This is important. Contact a doctor if: You do not get better as quickly as expected. You have new symptoms. Your symptoms get worse. You have pain or weakness that lasts a long time. You keep feeling sick to your stomach. You get better and then you have pain again. You have a fever. Get help right away if: You cannot eat or keep fluids down. Your pain gets very bad. Your skin or the white part of your eyes turns yellow. You have sudden swelling in your belly. You throw up. You feel dizzy or you pass out (faint). Your blood sugar is high (over 300 mg/dL). Summary Acute pancreatitis happens when the pancreas gets swollen. This condition is often caused by alcohol abuse, drug abuse, or gallstones. You will likely have to stay in the hospital for treatment. This information is not intended to replace advice given to you by your health care provider. Make sure you discuss any questions you have with your health care provider. Document Released: 12/21/2008 Document Revised: 04/24/2019 Document Reviewed: 04/24/2019 [employer] Patient Education 2020 [employer] Follow Up Care 11/28/2023 09:40:59 With:WENCESLAO HO MD, Surgery Address: [address] [place] [phone] When: Unknown Comments:Call office for appointment With:BHASKAR DE PAZ MD Address: [address] [place] [address] [facility] [address] [phone] When:Within 1 Week(s) Comments:Call for appointment With:LISSA HOOD MD, Surgery Address: [address] [facility] [address] [place], [place] [phone]- When:Within 2 Week(s) Comments:Please call the office to schedule a follow-up appointment With:FAMILY GADIEL APPIAH Address: [address] [place], [place] [phone]- [phone] When: Unknown Comments:Call for appointment With:Varun Cai Pt. Refferral [phone] Address: When: Unknown [facility] 12-02-2023 Note Discharge Instructions Thank you for allowing [facility] to assist you with your healthcare needs. The following is important discharge information regarding your hospital visit. Your Care Team PHYSICIAN, NONE Your Diagnosis Pancreatitis What to do next Instructions From Your Doctor Please take your medications as prescribed and follow-up with your primary care physician as well as gastroenterology as you will need colonoscopy evaluation in the outpatient setting. Also follow-up with general surgery after discharge. Please use Ensure supplements on daily basis. If you develop worsening abdominal pain, fever, nausea/vomiting and inability to have bowel movements, please come to nearest ER immediately. Follow Up Appointments Follow Up with WENCESLAO HO MD, Surgery When: Where:[address] [facility] [address] [place] [address] [phone] Why: Call office for appointment Follow Up with BHASKAR DE PAZ MD When: When:In 1 week Where:[facility] [place] [address] [phone] Why: Call for appointment Follow Up with LISSA HOOD MD, Surgery When: When:In 2 weeks Where:[address] [facility] [address] [place], [place] [phone]- Why: Please call the office to schedule a follow-up appointment Follow Up with FAMILY GADIEL APPIAH When: Where:[address] [place] [address]- [phone] Why: Call for appointment Follow Up with Varun Cai Pt. Refferral [phone] When: The Following Activity and Diet Have Been Ordered for You Discharge Activity - Ordered -- Activity As Tolerated, 12/02/23 13:01:00 EDT Discharge Diet - Ordered -- Type of Diet: Soft Diet, 12/02/23 13:01:00 EDT The Following Equipment Has Been Ordered for You No qualifying data available. The Following Treatments Have Been Ordered for You Discharge Labs Discharge Outpatient Labwork - Ordered -- CBC, Anemia, follow-up within: 3-5 days, Results Notify to: [facility], 12/02/23 13:01:00 EDT Discharge Radiology No qualifying data available. Other Therapies No qualifying data available. Post Acute Orders No qualifying data available. Someone Will Contact You Regarding These Home Health Referrals No home referrals have been ordered for you. No one will call you. Allergies codeine Nausea Medications Please ask your primary doctor or pharmacist before taking any other medication not listed, including over the counter drugs, herbal medications, vitamins and or supplements as they may interact with your home medications. What How Much When Why Instructions Last Dose New acetaminophen-oxyCODONE (Percocet 5 mg-325 mg oral tablet) 1 tab(s) by mouth Every 6 hours as needed for Pain, scale 7-10 Pancreatitis Duration: 3 Days Pickup at [facility] #[id number] New folic acid (folic acid 1 mg oral tablet) 1 tab(s) by mouth Once a day Duration: 30 Days Pickup at [facility] #[id number] New thiamine (Vitamin B1 100 mg oral tablet) 1 tab(s) by mouth Once a day Duration: 30 Days Pickup at [facility] #[id number] Unchanged albuterol (albuterol MDI (90 mcg/ inh) CFC free inhalation aerosol) 2 puff(s) by inhalation Every 4 hours as needed for as needed for wheezing URI with cough and congestion Encounter by telehealth for suspected COVID-19 Unchanged pantoprazole (Protonix) 40 Milligram IV Push Once a day before a meal Pharmacy Information [facility] #[id number]: [address], [place] [phone] What How Much When Comments Stop Taking piperacillin-tazobactam (Zosyn) 3.375 gram(s) IV Piggyback Every 8 hours Please take this list to your next doctor s visit. Bring all medications you take, including over the counter medications, herbals and other supplements with you to your doctor s visit. Patients and families are reminded to discard old lists and to update any records with all medication providers or retail pharmacies. Medication Leaflets folic acid (oral/injection) (FOE lik id) What is the most important information I should know about folic acid? Use only as directed. Tell your doctor if you use other medicines or have other medical conditions or allergies. What is folic acid? Folic acid is a type of B vitamin that is normally found in foods such as dried beans, peas, lentils, oranges, whole-wheat products, liver, asparagus, beets, broccoli, brussels sprouts, and spinach. Folic acid helps your body produce and maintain new cells, and also helps prevent changes to DNA that may lead to cancer. As a medication, folic acid is used to treat folic acid deficiency and certain types of anemia (lack of red blood cells) caused by folic acid deficiency. Folic acid is sometimes used with other medications to treat pernicious anemia. Folic acid used alone will not treat pernicious anemia and other anemias not related to Vitamin B12 deficiency. Take all of your medications as directed. Folic acid may also be used for other purposes not listed in this medication guide. What should I discuss with my healthcare provider before taking folic acid? You should not use this medicine if you have ever had an allergic reaction to folic acid. Ask a doctor or pharmacist if this medicine is safe to use if you have ever had: epilepsy or other seizure disorder; cirrhosis or other liver disease; kidney disease (or if you are on dialysis); hemolytic anemia; pernicious anemia; anemia that has not been diagnosed by a doctor and confirmed with laboratory testing; an infection; or alcoholism. Tell your doctor if you are or . How should I use folic acid? Use exactly as directed on the label, or as prescribed by your doctor. Folic acid oral is taken by mouth. Folic acid injection is given into a muscle, under the skin, or into a vein. A healthcare provider will give you this injection. Store folic acid at room temperature away from moisture and heat. What happens if I miss a dose? Take the medicine as soon as you can, but skip the missed dose if it is almost time for your next dose. Do not take two doses at one time. What happens if I overdose? Seek emergency medical attention or call the Poison Help line at . What should I avoid while taking folic acid? Follow your doctor's instructions about any restrictions on food, beverages, or activity. What are the possible side effects of folic acid? Get emergency medical help if you have signs of an allergic reaction: hives, rash, itching, skin redness; wheezing, difficult breathing; swelling of your face, lips, tongue, or throat. Common side effects may include: nausea, loss of appetite; bloating, gas, stomach pain; bitter or unpleasant taste in your mouth; confusion, trouble concentrating; sleep problems; depression; or feeling excited or irritable. This is not a complete list of side effects and others may occur. Call your doctor for medical advice about side effects. You may report side effects to FDA at 0-803-EUI-2591. What other drugs will affect folic acid? Tell your doctor about all your other medicines, especially: methotrexate; nitrofurantoin; pyrimethamine; tetracycline; a barbiturate such as phenobarbital or secobarbital; or seizure medicine such as phenytoin or primidone. This list is not complete. Other drugs may affect folic acid, including prescription and zpfu-rlo-rykjsyp medicines, vitamins, and herbal products. Not all possible drug interactions are listed here. Where can I get more information? Your pharmacist can provide more information about folic acid. Remember, keep this and all other medicines out of the reach of children, never share your medicines with others, and use this medication only for the indication prescribed. Every effort has been made to ensure that the information provided by [employer]. ('[employer]') is accurate, up-to-date, and complete, but no guarantee is made to that effect. Drug information contained herein may be time sensitive. [employer] information has been compiled for use by healthcare practitioners and consumers in the [place] and therefore [employer] does not warrant that uses outside of the [place] are appropriate, unless specifically indicated otherwise. [employer]'s drug information does not endorse drugs, diagnose patients or recommend therapy. [facility] drug information is an informational resource designed to assist licensed healthcare practitioners in caring for their patients and/or to serve consumers viewing this service as a supplement to, and not a substitute for, the expertise, skill, knowledge and judgment of healthcare practitioners. The absence of a warning for a given drug or drug combination in no way should be construed to indicate that the drug or drug combination is safe, effective or appropriate for any given patient. [facility] does not assume any responsibility for any aspect of healthcare administered with the aid of information [facility] provides. The information contained herein is not intended to cover all possible uses, directions, precautions, warnings, drug interactions, allergic reactions, or adverse effects. If you have questions about the drugs you are taking, check with your doctor, nurse or pharmacist. Copyright 5859-6151 [facility]. Version: 7.02. Revision Date: 09/21/2023. thiamine (vitamin B1) (THIGH a min) Vitamin B1 What is the most important information I should know about thiamine? You should not use thiamine if you have ever had an allergic reaction to it. Ask a doctor or pharmacist before taking thiamine if you have any medical conditions, if you take other medications or herbal products, or if you are allergic to any drugs or foods. Before you receive injectable thiamine, tell your doctor if you have kidney disease. Thiamine is only part of a complete program of treatment that may also include a special diet. It is very important to follow the diet plan created for you by your doctor or nutrition counselor. You should become very familiar with the list of foods you should eat or avoid to help control your condition. What is thiamine? Thiamine is vitamin B1. Thiamine is found in foods such as cereals, whole grains, meat, nuts, beans, and peas. Thiamine is important in the breakdown of carbohydrates from foods into products needed by the body. Thiamine is used to treat or prevent vitamin B1 deficiency. Thiamine injection is used to treat beriberi, a serious condition caused by prolonged lack of vitamin B1. Thiamine taken by mouth (oral) is available without a prescription. Injectable thiamine must be given by a healthcare professional. Thiamine may also be used for purposes not listed in this medication guide. What should I discuss with my healthcare provider before taking thiamine? You should not use thiamine if you have ever had an allergic reaction to it. Ask a doctor or pharmacist if it is safe for you to take this medicine if: you have any other medical conditions; you take other medications or herbal products; or you are allergic to any drugs or foods. To make sure you can safely receive injectable thiamine, tell your doctor if you have kidney disease. Thiamine is not expected to harm an unborn baby. Your thiamine dose needs may be different during . Do not take thiamine without medical advice if you are or plan to become . It is not known whether thiamine passes into breast milk. Your dose needs may be different while you are nursing. Do not take thiamine without medical advice if you are breast-feeding a baby. How should I take thiamine? Use exactly as directed on the label, or as prescribed by your doctor. Do not use in larger or smaller amounts or for longer than recommended. Injectable thiamine is injected into a muscle. You may be shown how to use injections at home. Do not self-inject this medicine if you do not fully understand how to give the injection and properly dispose of used needles and syringes. Do not use the injectable medication if it has changed colors or has particles in it. Call your doctor for a new prescription. The recommended dietary allowance of thiamine increases with age. Follow your healthcare provider's instructions. You may also consult the National Academy of Sciences 'Dietary Reference Intake' or the U.S. Department of Agriculture's 'Dietary Reference Intake' (formerly 'Recommended Daily Allowances' or MEDICAL CONCIERGE) listings for more information. Thiamine is only part of a complete program of treatment that may also include a special diet. It is very important to follow the diet plan created for you by your doctor or nutrition counselor. You should become very familiar with the list of foods you should eat or avoid to help control your condition. Store at room temperature away from moisture, heat, and light. What happens if I miss a dose? Use the missed dose as soon as you remember. Skip the missed dose if it is almost time for your next scheduled dose. Do not use extra medicine to make up the missed dose. What happens if I overdose? Seek emergency medical attention or call the Poison Help line at . What should I avoid while taking thiamine? Follow your doctor's instructions about any restrictions on food, beverages, or activity. What are the possible side effects of thiamine? Get emergency medical help if you have any of these signs of an allergic reaction: hives; difficult breathing; swelling of your face, lips, tongue, or throat. Call your doctor at once if you have a serious side effect such as: blue colored lips; chest pain, feeling short of breath; black, bloody, or tarry stools; or coughing up blood or vomit that looks like coffee grounds. Less serious side effects may include: nausea, tight feeling in your throat; sweating, feeling warm; mild rash or itching; feeling restless; or tenderness or a hard lump where a thiamine injection was given. This is not a complete list of side effects and others may occur. Call your doctor for medical advice about side effects. You may report side effects to FDA at 9-333-KEL-7176. What other drugs will affect thiamine? There may be other drugs that can interact with thiamine. Tell your doctor about all medications you use. This includes prescription, dibg-lce-xusvbnb, vitamin, and herbal products. Do not start a new medication without telling your doctor. Where can I get more information? Your pharmacist can provide more information about thiamine. Remember, keep this and all other medicines out of the reach of children, never share your medicines with others, and use this medication only for the indication prescribed. Every effort has been made to ensure that the information provided by [employer]. ('[employer]') is accurate, up-to-date, and complete, but no guarantee is made to that effect. Drug information contained herein may be time sensitive. [employer] information has been compiled for use by healthcare practitioners and consumers in the [place] and therefore [employer] does not warrant that uses outside of the [place] are appropriate, unless specifically indicated otherwise. [facility] drug information does not endorse drugs, diagnose patients or recommend therapy. [facility] drug information is an informational resource designed to assist licensed healthcare practitioners in caring for their patients and/or to serve consumers viewing this service as a supplement to, and not a substitute for, the expertise, skill, knowledge and judgment of healthcare practitioners. The absence of a warning for a given drug or drug combination in no way should be construed to indicate that the drug or drug combination is safe, effective or appropriate for any given patient. [employer] does not assume any responsibility for any aspect of healthcare administered with the aid of information [employer] provides. The information contained herein is not intended to cover all possible uses, directions, precautions, warnings, drug interactions, allergic reactions, or adverse effects. If you have questions about the drugs you are taking, check with your doctor, nurse or pharmacist. Copyright 3851-7904 [employer]. Version: 3.02. Revision Date: 06/20/2013. Education Materials Acute Pancreatitis Acute pancreatitis happens when the pancreas gets swollen. The pancreas is a large gland in the body that helps to control blood sugar. It also makes enzymes that help to digest food. This condition can last a few days and cause serious problems. The lungs, heart, and kidneys may stop working. What are the causes? Causes include: Alcohol abuse. Drug abuse. Gallstones. A tumor in the pancreas. Other causes include: Some medicines. Some chemicals. Diabetes. An infection. Damage caused by an accident. The poison (venom) from a scorpion bite. Belly (abdominal) surgery. The body's defense system (immune system) attacking the pancreas (autoimmune pancreatitis). Genes that are passed from parent to child (inherited). In some cases, the cause is not known. What are the signs or symptoms? Pain in the upper belly that may be felt in the back. The pain may be very bad. Swelling of the belly. Feeling sick to your stomach (nauseous) and throwing up (vomiting). Fever. How is this treated? You will likely have to stay in the hospital. Treatment may include: Pain medicine. Fluid through an IV tube. Placing a tube in the stomach to take out the stomach contents. This may help you stop throwing up. Not eating for 3 4 days. Antibiotic medicines, if you have an infection. Treating any other problems that may be the cause. Steroid medicines, if your problem is caused by your defense system attacking your body's own tissues. Surgery. Follow these instructions at home: Eating and drinking Follow instructions from your doctor about what to eat and drink. Eat foods that do not have a lot of fat in them. Eat small meals often. Do not eat big meals. Drink enough fluid to keep your pee (urine) pale yellow. Do not drink alcohol if it caused your condition. Medicines Take pnmr-zyi-jpdrpcv and prescription medicines only as told by your doctor. Ask your doctor if the medicine prescribed to you: ? Requires you to avoid driving or using heavy machinery. ? Can cause trouble pooping (constipation). You may need to take steps to prevent or treat trouble pooping: ? Take svpp-kfk-azicxej or prescription medicines. ? Eat foods that are high in fiber. These include beans, whole grains, and fresh fruits and vegetables. ? Limit foods that are high in fat and sugar. These include fried or sweet foods. General instructions Do not use any products that contain nicotine or tobacco, such as cigarettes, e-cigarettes, and chewing tobacco. If you need help quitting, ask your doctor. Get plenty of rest. Check your blood sugar at home as told by your doctor. Keep all follow-up visits as told by your doctor. This is important. Contact a doctor if: You do not get better as quickly as expected. You have new symptoms. Your symptoms get worse. You have pain or weakness that lasts a long time. You keep feeling sick to your stomach. You get better and then you have pain again. You have a fever. Get help right away if: You cannot eat or keep fluids down. Your pain gets very bad. Your skin or the white part of your eyes turns yellow. You have sudden swelling in your belly. You throw up. You feel dizzy or you pass out (faint). Your blood sugar is high (over 300 mg/dL). Summary Acute pancreatitis happens when the pancreas gets swollen. This condition is often caused by alcohol abuse, drug abuse, or gallstones. You will likely have to stay in the hospital for treatment. This information is not intended to replace advice given to you by your health care provider. Make sure you discuss any questions you have with your health care provider. Document Released: 12/21/2008 Document Revised: 04/24/2019 Document Reviewed: 04/24/2019 [employer] Patient Education 2020 [employer] Additional Information VACCINATE! IT SAVES LIVES! Members of the community who have not yet received the COVID-19 vaccine and would like to receive it can visit one of [facility] vaccine clinics. There are many vaccine clinic locations within the [facility]. For locations and available times, please visit https://gettheshot.coronavirus.[place].gov/. It is important to note that some COVID mobile vaccine clinics are held outdoors and may be canceled in rainy or stormy conditions. To learn more about pediatric vaccinations (ages 5-11), we invite you to visit the [facility] webpage. https://www.[facility].org/pag es/7513-Nscju-Jqbqfvyyfec-Frequent tn-Jcusp-Ggdhyhkac.html To learn more about the COVID-19 vaccine, we invite you to visit the CDC website for a list of frequently asked questions.https://www.cdc.gov/staci navirus/2019-ncov/vaccines/faq.htm l [employer] Patient Portal Access Instructions: Stay connected with your healthcare team and access your personal medical information anytime with the [email or web address] Patient Portal. Please follow the directions below to create your [employer] account: 1.Access the email account you provided upon registration to the hospital/physician office.2.Look for an invitation email from [facility].3.Open the email and access the invitation link: Accept Invitation to [facility].4.Fill in the required villafana to create your account. To access your account, visit [email or web address]. Click the blue button labeled Access Patient Portal and then log in with the username and password that you created in the steps above. You will be able to view your test results, lab results, a summary of your visits, upcoming appointments and more. There is also a convenient messaging option where you can send secure messages to your provider. In addition, you will have the ability to download any documents or summaries to your computer and/or send the information securely to a physician. Remember that your healthcare information is confidential, so carefully consider who you will allow to register on the [email or web address] Patient Portal for access to your information. You can also access the [facility] Patient Portal on the [employer]leva. Simply click on Patient Portal and then log into your account. If you would like to receive a full copy of your medical records, please contact the [facility] Medical Records Department by calling [phone], Wednesday through Wednesday between 8 a.m. and 4:30 p.m. HOW TO SAFELY DISPOSE OF PRESCRIPTION MEDICATIONS Please use one of the following methods to safely dispose of your unused medications. 1.Use a drug disposal kit: the drug disposal pouch allows you to safely discard your old and unused drugs. Ask your nurse to give you one when you are discharged.2.Visit a local take-back location: Many local pharmacies and police departments have programs that collect old and unwanted prescription drugs. Call your local pharmacy or go to http://goodideazs.DineGasm/7W3Xw6d to find one close to you.3.Make use of household items: Use cat litter or old coffee grounds to dispose medications if other options are not available. Mix your drugs with these household products, seal them in an airtight container and throw it into the garbage. Call [facility]: [phone] to be sure your drugs can be disposed of in this way. Some medicines may require a different approach.4.Never flush your medications down the toilet. IF YOU HAVE BEEN PRESCRIBED AN OPIOID FOR PAIN If you have been prescribed an opioid (such as hydrocodone, oxycodone or morphine), it is critical to understand the possible side effects and risks of opioid pain medications. Even when taken as directed, opioids can have several side effects including: Tolerance, meaning you might need to take more of a medication for the same pain relief. Nausea, vomiting and/or constipation. Sleepiness, dizziness, dry mouth, confusion, depression or itching. Physical dependence, meaning you have withdrawal symptoms when a medication is stopped, can develop within a few days. KNOW YOUR RESPONSIBILITIES It is important to know exactly how much and how often to take the opioid pain medications you are prescribed. Never take opioids in higher amounts or more often than prescribed. Do not combine opioids with alcohol or other drugs that cause drowsiness, such as benzodiazepines, also known as benzos, including diazepam and alprazolam, muscle relaxants or sleep aids. Never sell or share prescription opioids. This is illegal. Store opioids in a secure place and out of reach of others (including children, family, friends and visitors). The last page of this document has been signed and retained as a CHART COPY. Signatures Patient Education Materials Acute Pancreatitis, Otlu-jd-Cvqh Medication Leaflets folic acid (oral/injection), thiamine (vitamin B1) My discharge plan and instructions have been reviewed and explained to me and ITIMBO BRIANA M understand my current condition and have read and understand these discharge instructions. I have received a written copy of the plan/instructions. If I have questions, I am aware that I should contact my doctor. 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 States she is feeling better. Stools are firming up. She is tolerating her diet. Plan for discharge today. Objective Vitals and Measurements T: 37.0 C (Oral) TMIN: 36.9 C (Oral) TMAX: 37.0 C (Oral) HR: 93 RR: 18 BP: 114/77 SpO2: 98% Intake and Output 7AM Yesterday to 7AM Today Intake and Output (Last 24 hours) Intake Administration Information 1000.00 Oral Intake 940.00 Output Stool Count 1.00 Urine Count 7.00 Total Summary Total Intake 1940.00 Total Output 0.00 Fluid Balance 1940.00 Physical Exam General Appearance: Sitting up in bed. In no acute distress. Appropriate mood and affect. Head: Head is normocephalic and atraumatic. EENT: Sclera are nonicteric. Neck is supple without adenopathy. Trachea is midline. Cardiac: Heart rate and rhythm are normal. S1 and S2 noted. Lungs: No signs of respiratory distress. Lungs are clear bilaterally. On room air. Abdomen: Abdomen is slightly rounded, soft, symmetric, no rebound/guarding. Tenderness significantly improved. Hypoactive but improved bowel sounds. Extremities: Trace BL LE edema noted. Neurological: The patient is awake, alert, and oriented to person, place, and time with normal speech. Skin: Skin is warm, dry. Appropriate color for ethnicity. Weight Dosing Weight: 81.4 kg (11/28/23) Medications Medications (14) Active Scheduled: (7) cefTRIAXone IVP syringe 2 gram(s) 20 mL, IV Push (INT), qDay enoxaparin 40 mg/ 0.4mL syringe 40 mg 0.4 mL, Subcutaneous, qDay folic acid 1 mg tablet 1 mg 1 tab(s), Oral, qDay metronidazole PMX 500 mg 100 mL, IV Piggyback, q8h miconazole 2% Vaginal Cream with appl 1 appl, Vaginal, qHS pantoprazole 40 mg VIAL 40 mg, IV Push, qDayAC thiamine (w/calcium) 100 mg tablet 100 mg 1 tab(s), Oral, qDay Continuous: (0) PRN: (7) acetaminophen 325 mg Tablet 650 mg 2 tab(s), Oral, q4h albuterol - ipratropium 2.5 mg-0.5 mg/3 mL Inhal Britt UD 3 mL, Inhalation, q2hRT dextrose 50% Solution Disp syringe 50 mL 12.5 gram(s) 25 mL, IV Push, AsDirected melatonin 3 mg tablet 3 mg 1 tab(s), Oral, qHS melatonin 3 mg tablet 3 mg 1 tab(s), Oral, qHS ondansetron 2 mg/ 1 mL 2 mL INJ 4 mg 2 mL, IV Push, q4h oxycodone 5 mg tablet (immediate release) 5 mg 1 tab(s), Oral, q4h Lab Results 12/01 08:24 WBC: 9.5 Hgb: 10.8 L Hct: 31.7 L Platelet: 405 Neutrophil %: 75.3 H Glucose Level: 101 Sodium Level: 137 Potassium Level: 3.5 BUN: <5.0 L Creatinine Lvl (s): 0.38 L 11/30 05:09 WBC: 12.7 H Hgb: 11.6 L Hct: 34.7 Platelet: 445 Neutrophil %: 76.7 H 11/30 05:00 Glucose Level: 81 Sodium Level: 137 Potassium Level: 3.5 BUN: <5.0 L Creatinine Lvl (s): 0.42 L Imaging Results and Diagnostics CT Abdomen/Pelvis w/Contrast Result Date: November 30, 2023 Verified By: MARTÍN GAGE MD CLINICAL STATEMENT: IMPRESSION: 1. Redemonstrated findings of acute edematous interstitial pancreatitis. Nodefinite evidence of pancreatic necrosis, peripancreatic cyst/abscess.2. Interval improvement in jejunum and proximal ileal enteritis. Nosignificant change in long segment terminal ileum enteritis.3. Multiple moderately dilated fluid and gas filled loops of small bowel areagain noted, suggestive of low-grade small bowel obstruction in setting ofterminal ileitis.4. Mild improvement in abdominopelvic ascites.5. Prominent retroperitoneal lymph nodes are likely reactive in nature.6. Moderate right and small left pleural effusion, mildly improved.7. Hepatic steatosis and/or diffuse hepatocellular disease.I have personally reviewed the images of this examination and agree with theresident's finding and interpretation. XR Chest 1 View Result Date: November 30, 2023 Verified By: GHANSHYAM LAZCANO MD CLINICAL STATEMENT: IMPRESSION: No evidence of an acute process. No sizable pleural effusion is seen. US Abdomen Complete Result Date: November 29, 2023 Verified By: ABDIRAHMAN SEXTON MD CLINICAL STATEMENT: IMPRESSION: Steatosis or other diffuse hepatocellular disease. Trace perihepatic ascites. Likely small left pleural effusion. This document was transcribed utilizing voice recognition software and may contain typographical errors. Assessment/Plan Problem list: Pancreatitis likely 2/2 alcohol use Abnormal imaging > Acute pancreatitis without necrosis or abscess. No pseudocyst (CT A/P, 11/26) > Bilateral pleural effusions with moderate ascites (CT A/P, 11/26) > Wall thickening of terminal ileum and distal ileum, infectious versus inflammatory (CT A/P, 11/26) > Small bowel dilatation, pattern most c/w SBO (KUB, 11/27) > Hepatic steatosis (US, 11/28) Elevated lipase, improved (375-->125) Alcohol use Normal triglycerides (11/27) Acute on chronic diarrhea> stool PCR panel, C. difficile negative (11/29) Hypoalbuminemia Patient admitted with questionable small bowel obstruction, pancreatitis. Unknown etiology for bowel obstruction. She had abnormal findings on imaging as noted above concerning for inflammatory bowel disease. Recommend further evaluation with colonoscopy in the outpatient setting after resolution of this acute illness. Abdominal exam continues to improve. She is passing flatus and stool is firming up the diet has been advanced.. Given her imaging consistent with small bowel obstruction, recommend to avoid dysmotility agents. Would also avoid Metamucil/fiber therapy. Patient was educated on same. Etiology for her pancreatitis remains uncertain. High suspicion for alcohol induced. Avoidance/cessation of alcohol was encouraged. She has no evidence of cholelithiasis on imaging. LFTs are normal. No evidence of hypertriglyceridemia or hypercalcemia. No evidence of necrosis, abscess or pseudocyst on CT 11/26. Pain is likely secondary to her ileus/obstruction. Repeat CT imaging redemonstrated previous findings with some interval improvement. Okay for low-fat diet as tolerated. Recommend nutritional supplementation given hypoalbuminemia. Plan is for discharge today. Further orders/recommendations pending discussion with Dr. Herr. Nothing further to offer from a GI standpoint at this time. We will sign off. Our office will reach out to the patient to establish follow-up appointments/schedule colonoscopy. Please call us with any questions or reconsult us if needed. Digitally Signed by RAMIREZ PETERSON on 12/02/2023 01:52 PM [facility] 12-01-2023 Note Date of Service 12/01/2023 Subjective Patient seen and examined at bedside. Feeling better overall however does experience off-and-on abdominal pain. Does have ongoing diarrhea. Denies any nausea/vomiting. She is passing flatus otherwise. Interested in improving her diet. She also requested vaginal cream for vaginal itching. Objective Vitals and Measurements T: 37.0 C (Oral) HR: 99 RR: 18 BP: 121/83 SpO2: 98% Intake and Output 7AM Yesterday to 7AM Today Intake and Output (Last 24 hours) Intake Administration Information 1000.00 Oral Intake 1100.00 Supplement Intake 0.00 Output Stool Count 6.00 Urine Count 6.00 Total Summary Total Intake 2100.00 Total Output 0.00 Fluid Balance 2100.00 Physical Exam General: Patient is not in acute distress Neck: Supple, No JVD HEENT: Normocephalic, atraumatic, moist mucous membranes Cardiac: Regular rate and rhythm, S1 and S2 present, no murmurs, rubs, or gallops appreciated Lungs: Clear to auscultation bilaterally, no wheezes, rhonchi, or rales appreciated Abdomen: Bowel sounds present, abdomen is soft, relatively sensitive and mild tenderness in left lower quadrant, Musculoskeletal: Preserved ROM in all 4 extremities Extremities: No clubbing or cyanosis, pitting edema Skin: Warm, well perfused, no bruises Neurological: Alert and orientated x3, No gross focal neurological deficits Weight Dosing Weight: 81.4 kg (11/28/23) Medications Medications (15) Active Scheduled: (6) cefTRIAXone IVP syringe 2 gram(s) 20 mL, IV Push (INT), qDay folic acid 1 mg tablet 1 mg 1 tab(s), Oral, qDay metronidazole PMX 500 mg 100 mL, IV Piggyback, q8h miconazole 2% Vaginal Cream with appl 1 appl, Vaginal, qHS pantoprazole 40 mg VIAL 40 mg, IV Push, qDayAC thiamine (w/calcium) 100 mg tablet 100 mg 1 tab(s), Oral, qDay Continuous: (1) Lactated Ringers 1000 mL 1,000 mL, Intravenous, 125 mL/hr PRN: (8) acetaminophen 325 mg Tablet 650 mg 2 tab(s), Oral, q4h albuterol - ipratropium 2.5 mg-0.5 mg/3 mL Inhal Britt UD 3 mL, Inhalation, q2hRT dextrose 50% Solution Disp syringe 50 mL 12.5 gram(s) 25 mL, IV Push, AsDirected hydromorphone 1 mg/mL (1mL) INJ 1 mg 1 mL, IV Push, q3h melatonin 3 mg tablet 3 mg 1 tab(s), Oral, qHS melatonin 3 mg tablet 3 mg 1 tab(s), Oral, qHS morphine 2 mg/mL 1 mL syringe 1 mg 0.5 mL, IV Push, q4h ondansetron 2 mg/ 1 mL 2 mL INJ 4 mg 2 mL, IV Push, q4h Lab Results 11/30 05:09 WBC: 12.7 H Hgb: 11.6 L Hct: 34.7 Platelet: 445 Neutrophil %: 76.7 H 11/30 05:00 Glucose Level: 81 Sodium Level: 137 Potassium Level: 3.5 BUN: <5.0 L Creatinine Lvl (s): 0.42 L 11/29 16:23 Glucose Level: 97 Sodium Level: 136 Potassium Level: 3.4 L BUN: <5.0 L Creatinine Lvl (s): 0.43 L 11/29 07:32 WBC: 10.8 Hgb: 11.2 L Hct: 32.9 L Platelet: 372 Neutrophil %: 72.8 Glucose Level: 96 Sodium Level: 135 L Potassium Level: 2.8 L BUN: <5.0 L Creatinine Lvl (s): 0.37 L Imaging Results and Diagnostics CT Abdomen/Pelvis w/Contrast Result Date: November 30, 2023 Verified By: MARTNÍ GAGE MD CLINICAL STATEMENT: IMPRESSION: 1. Redemonstrated findings of acute edematous interstitial pancreatitis. Nodefinite evidence of pancreatic necrosis, peripancreatic cyst/abscess.2. Interval improvement in jejunum and proximal ileal enteritis. Nosignificant change in long segment terminal ileum enteritis.3. Multiple moderately dilated fluid and gas filled loops of small bowel areagain noted, suggestive of low-grade small bowel obstruction in setting ofterminal ileitis.4. Mild improvement in abdominopelvic ascites.5. Prominent retroperitoneal lymph nodes are likely reactive in nature.6. Moderate right and small left pleural effusion, mildly improved.7. Hepatic steatosis and/or diffuse hepatocellular disease.I have personally reviewed the images of this examination and agree with theresident's finding and interpretation. XR Chest 1 View Result Date: November 30, 2023 Verified By: GHANSHYAM LAZCANO MD CLINICAL STATEMENT: IMPRESSION: No evidence of an acute process. No sizable pleural effusion is seen. US Abdomen Complete Result Date: November 29, 2023 Verified By: ABDIRAHMAN SEXTON MD CLINICAL STATEMENT: IMPRESSION: Steatosis or other diffuse hepatocellular disease. Trace perihepatic ascites. Likely small left pleural effusion. EKG No qualifying data available. Assessment/Plan Acute interstitial pancreatitis likely secondary to alcohol use Abdominal pain Enteritis Concern for small bowel obstruction Severe hypokalemia Mild hyponatremia Normocytic anemia Hypoalbuminemia Bilateral pleural effusion improved Asthma not in exacerbation Irritable bowel syndrome Hepatic steatosis Alcohol use Plan: Patient presented as a transfer from [facility] for GI and general surgery evaluation due to concern for enteritis, small bowel section and pancreatitis. Given patient's abdominal pain and diarrhea, repeat CT scan abdomen/pelvis was performed and findings were reviewed. Findings consistent of acute edematous interstitial pancreatitis however no evidence of necrosis or peripancreatic cyst/abscess. Interval improvement in jejunum however no significant change in terminal ileum enteritis, dilated fluid and gas-filled loops of small bowel showing low-grade SBO, improvement in abdominal pelvic ascites, prominent retroperitoneal lymph nodes, pleural effusion mildly improved, hepatic steatosis with diffuse hepatocellular disease. Patient is having diarrhea and passing flatus. She is tolerating clear liquid diet. Does have mild uptrending leukocytosis. She was on IV ceftriaxone and metronidazole was added to cover for enteritis. Continue Protonix. Continue IV fluids and appropriate pain control for acute pancreatitis. Likely cause seems to be alcohol related pancreatitis. LFTs are otherwise WNL. Diet being advanced to low-fat diet as per gastroenterology. Outpatient endoscopic evaluation. Encouraged patient to ambulate as much as she can. Encouraged her to limit use of opioids. Appreciate input from gastroenterology and general surgery. Replace electrolyte as needed. Repeat chest x-ray showed no obvious pleural effusion. She is otherwise denying any shortness of breath and not hypoxic. Monitor clinically. As needed breathing treatment for underlying asthma. Counseled on alcohol cessation. Thiamine and folate supplementation. Bilateral SCDs and hide Lovenox subcu for DVT prophy given stable hemoglobin. Anticipated Date of Discharge Anticipate discharge hopefully in next 24-48 hours if he tolerates diet and improved clinically. Digitally Signed by JUICE CHACKO MD on 12/01/2023 04:32 PM [facility] 12-01-2023 Gastroenterology Progress note Date of Service 12/01/2023 Subjective Patient examined sitting up in bed. She states she is feeling much improved today. Abdominal pain is improving. Eager to advance her diet. Diarrhea continues. No melena or hematochezia. Objective Vitals and Measurements T: 37.0 C (Oral) TMIN: 37.0 C (Oral) TMAX: 37.1 C (Oral) HR: 109 RR: 18 BP: 129/85 SpO2: 98% Intake and Output 7AM Yesterday to 7AM Today Intake and Output (Last 24 hours) Intake Oral Intake 1100.00 Supplement Intake 0.00 Output Stool Count 6.00 Urine Count 3.00 Total Summary Total Intake 1100.00 Total Output 0.00 Fluid Balance 1100.00 Physical Exam General Appearance: Lying in bed. In no acute distress. Appropriate mood and affect. Head: Head is normocephalic and atraumatic. EENT: Sclera are nonicteric. Neck is supple without adenopathy. Trachea is midline. Cardiac: Heart rate and rhythm are normal. S1 and S2 noted. Lungs: No signs of respiratory distress. Lungs are clear bilaterally. On room air. Abdomen: Abdomen is slightly rounded, soft, symmetric, no rebound/guarding. Tenderness significantly improved. Hypoactive but improved bowel sounds. Extremities: Trace BL LE edema noted. Neurological: The patient is awake, alert, and oriented to person, place, and time with normal speech. Skin: Skin is warm, dry. Appropriate color for ethnicity. Weight Dosing Weight: 81.4 kg (11/28/23) Medications Medications (15) Active Scheduled: (6) cefTRIAXone IVP syringe 2 gram(s) 20 mL, IV Push (INT), qDay folic acid 1 mg tablet 1 mg 1 tab(s), Oral, qDay metronidazole PMX 500 mg 100 mL, IV Piggyback, q8h miconazole 2% Vaginal Cream with appl 1 appl, Vaginal, qHS pantoprazole 40 mg VIAL 40 mg, IV Push, qDayAC thiamine (w/calcium) 100 mg tablet 100 mg 1 tab(s), Oral, qDay Continuous: (1) Lactated Ringers 1,000 mL 1,000 mL, Intravenous, 125 mL/hr PRN: (8) acetaminophen 325 mg Tablet 650 mg 2 tab(s), Oral, q4h albuterol - ipratropium 2.5 mg-0.5 mg/3 mL Inhal Britt UD 3 mL, Inhalation, q2hRT dextrose 50% Solution Disp syringe 50 mL 12.5 gram(s) 25 mL, IV Push, AsDirected hydromorphone 1 mg/mL (1mL) INJ 1 mg 1 mL, IV Push, q3h melatonin 3 mg tablet 3 mg 1 tab(s), Oral, qHS melatonin 3 mg tablet 3 mg 1 tab(s), Oral, qHS morphine 2 mg/mL 1 mL syringe 1 mg 0.5 mL, IV Push, q4h ondansetron 2 mg/ 1 mL 2 mL INJ 4 mg 2 mL, IV Push, q4h Lab Results 11/30 05:09 WBC: 12.7 H Hgb: 11.6 L Hct: 34.7 Platelet: 445 Neutrophil %: 76.7 H 11/30 05:00 Glucose Level: 81 Sodium Level: 137 Potassium Level: 3.5 BUN: <5.0 L Creatinine Lvl (s): 0.42 L 11/29 16:23 Glucose Level: 97 Sodium Level: 136 Potassium Level: 3.4 L BUN: <5.0 L Creatinine Lvl (s): 0.43 L 11/29 07:32 WBC: 10.8 Hgb: 11.2 L Hct: 32.9 L Platelet: 372 Neutrophil %: 72.8 Glucose Level: 96 Sodium Level: 135 L Potassium Level: 2.8 L BUN: <5.0 L Creatinine Lvl (s): 0.37 L Imaging Results and Diagnostics CT Abdomen/Pelvis w/Contrast Result Date: November 30, 2023 Verified By: MARTÍN GAGE MD CLINICAL STATEMENT: IMPRESSION: 1. Redemonstrated findings of acute edematous interstitial pancreatitis. Nodefinite evidence of pancreatic necrosis, peripancreatic cyst/abscess.2. Interval improvement in jejunum and proximal ileal enteritis. Nosignificant change in long segment terminal ileum enteritis.3. Multiple moderately dilated fluid and gas filled loops of small bowel areagain noted, suggestive of low-grade small bowel obstruction in setting ofterminal ileitis.4. Mild improvement in abdominopelvic ascites.5. Prominent retroperitoneal lymph nodes are likely reactive in nature.6. Moderate right and small left pleural effusion, mildly improved.7. Hepatic steatosis and/or diffuse hepatocellular disease.I have personally reviewed the images of this examination and agree with theresident's finding and interpretation. XR Chest 1 View Result Date: November 30, 2023 Verified By: GHANSHYAM LAZCANO MD CLINICAL STATEMENT: IMPRESSION: No evidence of an acute process. No sizable pleural effusion is seen. US Abdomen Complete Result Date: November 29, 2023 Verified By: ABDIRAHMAN SEXTON MD CLINICAL STATEMENT: IMPRESSION: Steatosis or other diffuse hepatocellular disease. Trace perihepatic ascites. Likely small left pleural effusion. This document was transcribed utilizing voice recognition software and may contain typographical errors. Assessment/Plan Problem list: Pancreatitis likely 2/2 alcohol use Abnormal imaging > Acute pancreatitis without necrosis or abscess. No pseudocyst (CT A/P, 11/26) > Bilateral pleural effusions with moderate ascites (CT A/P, 11/26) > Wall thickening of terminal ileum and distal ileum, infectious versus inflammatory (CT A/P, 11/26) > Small bowel dilatation, pattern most c/w SBO (KUB, 11/27) > Hepatic steatosis (US, 11/28) Elevated lipase, improved (375-->125) Alcohol use Normal triglycerides (11/27) Acute on chronic diarrhea> stool PCR panel, C. difficile negative (11/29) Hypoalbuminemia Patient admitted with questionable small bowel obstruction, pancreatitis. Unknown etiology for bowel obstruction. She had abnormal findings on imaging as noted above concerning for inflammatory bowel disease. Recommend further evaluation with colonoscopy in the outpatient setting after resolution of this acute illness. Abdominal exam continues to improve. She is passing flatus and liquid stool. Given her imaging consistent with small bowel obstruction, recommend to avoid dysmotility agents. Patient educated on same. Would also avoid Metamucil/fiber therapy. Etiology for her pancreatitis remains uncertain. High suspicion for alcohol induced. She has no evidence of cholelithiasis on imaging. LFTs are normal. No evidence of hypertriglyceridemia or hypercalcemia. No evidence of necrosis, abscess or pseudocyst on CT 11/26. Pain is likely secondary to her ileus/obstruction. Repeat CT imaging last evening redemonstrated findings of acute edematous interstitial pancreatitis. No evidence of necrosis, abscess or peripancreatic cyst. Interval improvement of jejunum and proximal ileal enteritis. No significant change in long segment terminal ileum enteritis. Multiple dilated fluid-filled gas loops suggestive of low-grade small bowel obstruction. Mild improvement in abdominal pelvic ascites. Active lymph nodes noted. Moderate right and small left pleural effusions are mildly improved. Okay to slowly advance to low-fat diet as tolerated. Recommend nutritional supplementation given hypoalbuminemia. Further orders/recommendations pending discussion with Dr. Herr. We will continue to follow. Digitally Signed by RAMIREZ PETERSON on 12/01/2023 04:06 PM [facility] 11-30-2023 Note ORIGINAL EXAMINATION: CT OF THE ABDOMEN AND PELVIS WITH CONTRAST 11/30/2023 7:45 pm TECHNIQUE: CT of the abdomen and pelvis was performed with the administration of intravenous contrast. Multiplanar reformatted images are provided for review. Automated exposure control, iterative reconstruction, and/or weight based adjustment of the mA/kV was utilized to reduce the radiation dose to as low as reasonably achievable. COMPARISON: CT abdomen pelvis with IV contrast 11/27/2023. HISTORY: ORDERING SYSTEM PROVIDED HISTORY: Cholecystectomy. Reason for Exam: Abdominal pain with diarrhea and bloating x1 week. FINDINGS: Moderate right and small left pleural effusion, mildly improved. There is adjacent bibasilar compressive atelectasis. Trace pericardial fluid. Small gastric fundus diverticulum. Gallbladder is surgically absent. Diffuse hypoattenuation of liver parenchyma is suggestive of hepatic steatosis and/or diffuse hepatocellular disease. Focal area of fatty infiltration around the falciform ligament. Spleen and adrenal glands are unremarkable. 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 Perisplenic fluid, and fluid tracking along the left anterior pararenal space into the left colonic gutter is mildly decreased. Portal vein, splenic and superior mesenteric veins are patent. Normal pancreatic enhancement with no definite evidence of pancreatic necrosis. Mild wall thickening of 2/3rd duodenal segment, likely due reactive duodenitis. Perihepatic, perisplenic, abdominal and pelvic ascites has mildly improved. Kidneys are symmetric in size and enhancement without hydronephrosis or urolithiasis. Urinary bladder is unremarkable. Uterus is unremarkable. No adnexal mass. There is interval improvement in jejunum and proximal ileal wall thickening and surrounding mesenteric haziness/edema, suggest improving enteritis. No significant change in long segment terminal ileum enteritis with surrounding inflammation. Multiple moderately dilated fluid and gas filled loops of small bowel are again noted measuring up to 4 cm, suggestive small-bowel obstruction in setting of terminal ileitis. There is no evidence of new pneumatosis, definite intraperitoneal free air or focal fluid collection/abscess. Prominent retroperitoneal lymph nodes are likely reactive in nature. Colon are normal in caliber. Appendix is not seen. Nonaneurysmal aorto-iliac arteries. No acute fracture or destructive osseous lesion. Tiny bone island in the right femoral head. Mild anasarca. IMPRESSION: 1. Redemonstrated findings of acute edematous interstitial pancreatitis. No definite evidence of pancreatic necrosis, peripancreatic cyst/abscess. 2. Interval improvement in jejunum and proximal ileal enteritis. No significant change in long segment terminal ileum enteritis. 3. Multiple moderately dilated fluid and gas filled loops of small bowel are again noted, suggestive of low-grade small bowel obstruction in setting of terminal ileitis. 4. Mild improvement in abdominopelvic ascites. 5. Prominent retroperitoneal lymph nodes are likely reactive in nature. 6. Moderate right and small left pleural effusion, mildly improved. 7. Hepatic steatosis and/or diffuse hepatocellular disease. I have personally reviewed the images of this examination and agree with the resident's finding and interpretation. Interpreted by: Martín Gage MD Preliminary Report By: Inga Shannon Electronically signed By Martín Gage MD Dictated Date: 12/01/2023 8:28:15 AM Prelim Date: 12/01/2023 11:55:02 AM Sign Date: 12/01/2023 11:55:02 AM Ordering Provider: [facility] 11-30-2023 Gastroenterology Progress note Date of Service 11/30/2023 Subjective Examined resting in bed. She indicates she is feeling better today. Was able to get up and take a shower. Thinks she may have overdone it. Pain remains but is improved. She has had no nausea or vomiting and has been tolerating liquids. Several loose brown stools today. Objective Vitals and Measurements T: 37.1 C (Oral) TMIN: 36.9 C (Oral) TMAX: 37.4 C (Oral) HR: 92 RR: 20 BP: 123/72 SpO2: 98% Intake and Output 7AM Yesterday to 7AM Today Intake and Output (Last 24 hours) Intake Oral Intake 940.00 Supplement Intake 0.00 Output Stool Count 7.00 Urine Count 9.00 Total Summary Total Intake 940.00 Total Output 0.00 Fluid Balance 940.00 Physical Exam General Appearance: Lying in bed. In no acute distress. Appropriate mood and affect. Head: Head is normocephalic and atraumatic. EENT: Sclera are nonicteric. Neck is supple without adenopathy. Trachea is midline. Cardiac: Heart rate and rhythm are normal. S1 and S2 noted. Lungs: No signs of respiratory distress. Lungs are clear bilaterally. On room air. Abdomen: Abdomen is slightly rounded, soft, symmetric, no rebound/guarding. Tender around the umbilicus to right sided abdomen. BS x 4 distant, tinkling. Extremities: Trace BL LE edema noted. Neurological: The patient is awake, alert, and oriented to person, place, and time with normal speech. Skin: Skin is warm, dry. Appropriate color for ethnicity. Weight Dosing Weight: 81.4 kg (11/28/23) Medications Medications (13) Active Scheduled: (4) cefTRIAXone IVP syringe 2 gram(s) 20 mL, IV Push (INT), qDay folic acid 1 mg tablet 1 mg 1 tab(s), Oral, qDay pantoprazole 40 mg VIAL 40 mg, IV Push, qDayAC thiamine (w/calcium) 100 mg tablet 100 mg 1 tab(s), Oral, qDay Continuous: (1) Lactated Ringers 1,000 mL 1,000 mL, Intravenous, 125 mL/hr PRN: (8) acetaminophen 325 mg Tablet 650 mg 2 tab(s), Oral, q4h albuterol - ipratropium 2.5 mg-0.5 mg/3 mL Inhal Britt UD 3 mL, Inhalation, q2hRT dextrose 50% Solution Disp syringe 50 mL 12.5 gram(s) 25 mL, IV Push, AsDirected hydromorphone 1 mg/mL (1mL) INJ 1 mg 1 mL, IV Push, q3h melatonin 3 mg tablet 3 mg 1 tab(s), Oral, qHS melatonin 3 mg tablet 3 mg 1 tab(s), Oral, qHS morphine 2 mg/mL 1 mL syringe 1 mg 0.5 mL, IV Push, q4h ondansetron 2 mg/ 1 mL 2 mL INJ 4 mg 2 mL, IV Push, q4h Lab Results 11/29 07:32 WBC: 10.8 Hgb: 11.2 L Hct: 32.9 L Platelet: 372 Neutrophil %: 72.8 Glucose Level: 96 Sodium Level: 135 L Potassium Level: 2.8 L BUN: <5.0 L Creatinine Lvl (s): 0.37 L Imaging Results and Diagnostics US Abdomen Complete Result Date: November 29, 2023 Verified By: ABDIRAHMAN SEXTON MD CLINICAL STATEMENT: IMPRESSION: Steatosis or other diffuse hepatocellular disease. Trace perihepatic ascites. Likely small left pleural effusion. This document was transcribed utilizing voice recognition software and may contain typographical errors. Assessment/Plan Problem list: Pancreatitis likely 2/2 alcohol use Abnormal imaging > Acute pancreatitis without necrosis or abscess. No pseudocyst (CT A/P, 11/26) > Bilateral pleural effusions with moderate ascites (CT A/P, 11/26) > Wall thickening of terminal ileum and distal ileum, infectious versus inflammatory (CT A/P, 11/26) > Small bowel dilatation, pattern most c/w SBO (KUB, 11/27) > Hepatic steatosis (US, 11/28) Elevated lipase, improved (375-->125) Alcohol use Normal triglycerides (11/27) Acute on chronic diarrhea> stool PCR panel, C. difficile negative (11/29) Hypoalbuminemia Patient admitted with questionable small bowel obstruction, pancreatitis. Unknown etiology for bowel obstruction. She had abnormal findings on imaging as noted above concerning for inflammatory bowel disease. Recommend further evaluation with colonoscopy in the outpatient setting after resolution of this acute illness. Abdominal exam is improving. She is passing flatus and liquid stool. Given her imaging consistent with small bowel obstruction, recommend to avoid dysmotility agents. If diarrhea continues, could consider trying to bulk stool with small dose of Metamucil daily (1 teaspoon). Etiology for her pancreatitis remains uncertain. High suspicion for alcohol induced. She has no evidence of cholelithiasis on imaging. LFTs are normal. No evidence of hypertriglyceridemia or hypercalcemia. No evidence of necrosis, abscess or pseudocyst on CT 11/26. Pain is likely secondary to her ileus/obstruction. Repeat imaging is pending. Okay to continue clears. Recommend nutritional supplementation given hypoalbuminemia. Likely can advance diet depending on results of CT imaging. Further orders/recommendations pending discussion with Dr. De Paz. We will continue to follow Digitally Signed by RAMIREZ PETERSON on 11/30/2023 03:21 PM [facility] 11-30-2023 Gastroenterology Progress note Date of Service 11/30/2023 Subjective Examined resting in bed. She indicates she is feeling better today. Was able to get up and take a shower. Thinks she may have overdone it. Pain remains but is improved. She has had no nausea or vomiting and has been tolerating liquids. Several loose brown stools today. Objective Vitals and Measurements T: 37.1 C (Oral) TMIN: 36.9 C (Oral) TMAX: 37.4 C (Oral) HR: 92 RR: 20 BP: 123/72 SpO2: 98% Intake and Output 7AM Yesterday to 7AM Today Intake and Output (Last 24 hours) Intake Oral Intake 940.00 Supplement Intake 0.00 Output Stool Count 7.00 Urine Count 9.00 Total Summary Total Intake 940.00 Total Output 0.00 Fluid Balance 940.00 Physical Exam General Appearance: Lying in bed. In no acute distress. Appropriate mood and affect. Head: Head is normocephalic and atraumatic. EENT: Sclera are nonicteric. Neck is supple without adenopathy. Trachea is midline. Cardiac: Heart rate and rhythm are normal. S1 and S2 noted. Lungs: No signs of respiratory distress. Lungs are clear bilaterally. On room air. Abdomen: Abdomen is slightly rounded, soft, symmetric, no rebound/guarding. Tender around the umbilicus to right sided abdomen. BS x 4 distant, tinkling. Extremities: Trace BL LE edema noted. Neurological: The patient is awake, alert, and oriented to person, place, and time with normal speech. Skin: Skin is warm, dry. Appropriate color for ethnicity. Weight Dosing Weight: 81.4 kg (11/28/23) Medications Medications (13) Active Scheduled: (4) cefTRIAXone IVP syringe 2 gram(s) 20 mL, IV Push (INT), qDay folic acid 1 mg tablet 1 mg 1 tab(s), Oral, qDay pantoprazole 40 mg VIAL 40 mg, IV Push, qDayAC thiamine (w/calcium) 100 mg tablet 100 mg 1 tab(s), Oral, qDay Continuous: (1) Lactated Ringers 1,000 mL 1,000 mL, Intravenous, 125 mL/hr PRN: (8) acetaminophen 325 mg Tablet 650 mg 2 tab(s), Oral, q4h albuterol - ipratropium 2.5 mg-0.5 mg/3 mL Inhal Britt UD 3 mL, Inhalation, q2hRT dextrose 50% Solution Disp syringe 50 mL 12.5 gram(s) 25 mL, IV Push, AsDirected hydromorphone 1 mg/mL (1mL) INJ 1 mg 1 mL, IV Push, q3h melatonin 3 mg tablet 3 mg 1 tab(s), Oral, qHS melatonin 3 mg tablet 3 mg 1 tab(s), Oral, qHS morphine 2 mg/mL 1 mL syringe 1 mg 0.5 mL, IV Push, q4h ondansetron 2 mg/ 1 mL 2 mL INJ 4 mg 2 mL, IV Push, q4h Lab Results 11/29 07:32 WBC: 10.8 Hgb: 11.2 L Hct: 32.9 L Platelet: 372 Neutrophil %: 72.8 Glucose Level: 96 Sodium Level: 135 L Potassium Level: 2.8 L BUN: <5.0 L Creatinine Lvl (s): 0.37 L Imaging Results and Diagnostics US Abdomen Complete Result Date: November 29, 2023 Verified By: ABDIRAHMAN SEXTON MD CLINICAL STATEMENT: IMPRESSION: Steatosis or other diffuse hepatocellular disease. Trace perihepatic ascites. Likely small left pleural effusion. This document was transcribed utilizing voice recognition software and may contain typographical errors. Assessment/Plan Problem list: Pancreatitis likely 2/2 alcohol use Abnormal imaging > Acute pancreatitis without necrosis or abscess. No pseudocyst (CT A/P, 11/26) > Bilateral pleural effusions with moderate ascites (CT A/P, 11/26) > Wall thickening of terminal ileum and distal ileum, infectious versus inflammatory (CT A/P, 11/26) > Small bowel dilatation, pattern most c/w SBO (KUB, 11/27) > Hepatic steatosis (US, 11/28) Elevated lipase, improved (375-->125) Alcohol use Normal triglycerides (11/27) Acute on chronic diarrhea> stool PCR panel, C. difficile negative (11/29) Hypoalbuminemia Patient admitted with questionable small bowel obstruction, pancreatitis. Unknown etiology for bowel obstruction. She had abnormal findings on imaging as noted above concerning for inflammatory bowel disease. Recommend further evaluation with colonoscopy in the outpatient setting after resolution of this acute illness. Abdominal exam is improving. She is passing flatus and liquid stool. Given her imaging consistent with small bowel obstruction, recommend to avoid dysmotility agents. If diarrhea continues, could consider trying to bulk stool with small dose of Metamucil daily (1 teaspoon). Etiology for her pancreatitis remains uncertain. High suspicion for alcohol induced. She has no evidence of cholelithiasis on imaging. LFTs are normal. No evidence of hypertriglyceridemia or hypercalcemia. No evidence of necrosis, abscess or pseudocyst on CT 11/26. Pain is likely secondary to her ileus/obstruction. Repeat imaging is pending. Okay to continue clears. Recommend nutritional supplementation given hypoalbuminemia. Likely can advance diet depending on results of CT imaging. Further orders/recommendations pending discussion with Dr. De Paz. We will continue to follow Digitally Signed by RAMIREZ PETERSON on 11/30/2023 03:21 PM [facility] 11-30-2023 Note ORIGINAL EXAMINATION: ONE XRAY VIEW OF THE CHEST 11/30/2023 2:34 pm COMPARISON: Prior chest x-ray dated 11/28/2023. HISTORY: ORDERING SYSTEM PROVIDED HISTORY: Reason for Exam: Pleural effusion FINDINGS: The cardiomediastinal silhouette demonstrates a normal appearance. No consolidative opacity is identified. There is no pleural effusion or pneumothorax. No free air seen beneath the level of the diaphragm. The bony thorax appears acutely intact. IMPRESSION: No evidence of an acute process. No sizable pleural effusion is seen. Interpreted by: Ghanshyam Lazcano MD Preliminary Report By: Ghanshyam Lazcano MD Electronically signed By Ghanshyam Lazcano MD Dictated Date: 11/30/2023 3:55:01 PM Prelim Date: 11/30/2023 3:55:43 PM Sign Date: 11/30/2023 3:55:43 PM Ordering Provider: [facility] 11-30-2023 Note Date of Service 11/30/2023 Chief Complaint Abdominal pain, diarrhea Subjective Patient seen and examined today at bedside. She continues to complain of epigastric and periumbilical abdominal pain and did have frequent use of Dilaudid overnight. States her pain is relatively better as compared to yesterday. She had multiple episodes of watery diarrhea around 10 bowel movements since yesterday however she also received enema. Denies any vomiting or nausea. Denies any chest pain. Objective Vitals and Measurements T: 37 C (Oral) TMIN: 36.9 C (Oral) TMAX: 37.4 C (Oral) HR: 94 RR: 18 BP: 120/82 SpO2: 100% Intake and Output 7AM Yesterday to 7AM Today Intake and Output (Last 24 hours) Intake Oral Intake 440.00 Administration Information 800.00 Supplement Intake 0.00 Output Stool Count 4.00 Urine Count 8.00 Emesis Count 0.00 Total Summary Total Intake 1240.00 Total Output 0.00 Fluid Balance 1240.00 Physical Exam General: Patient is not in acute distress Neck: Supple, No JVD HEENT: Normocephalic, atraumatic, Cardiac: Regular rate and rhythm, S1 and S2 present, no murmurs, rubs, or gallops appreciated Lungs: Clear to auscultation bilaterally, no wheezes, rhonchi, or rales appreciated Abdomen: Bowel sounds audible, abdomen is soft, epigastric and upper abdominal tenderness present, voluntary guarding, no rebound tenderness or rigidity Musculoskeletal: Preserved ROM in all 4 extremities Extremities: No clubbing or cyanosis, pitting edema Skin: Warm, well perfused, no bruises Neurological: Alert and orientated x3, No gross focal neurological deficits Weight Dosing Weight: 81.4 kg (11/28/23) Medications Medications (12) Active Scheduled: (5) cefTRIAXone IVP syringe 2 gram(s) 20 mL, IV Push (INT), qDay magnesium sulfate PMX 2 gram(s) 50 mL, IV Piggyback, Once pantoprazole 40 mg VIAL 40 mg, IV Push, qDayAC potassium bicarbonate-citric acid 20 mEq EFF tablet 40 mEq 2 tab(s), Oral, Once potassium bicarbonate-citric acid 20 mEq EFF tablet 40 mEq 2 tab(s), Oral, Once Continuous: (1) Lactated Ringers 1,000 mL 1,000 mL, Intravenous, 125 mL/hr PRN: (6) acetaminophen 325 mg Tablet 650 mg 2 tab(s), Oral, q4h dextrose 50% Solution Disp syringe 50 mL 12.5 gram(s) 25 mL, IV Push, AsDirected hydromorphone 1 mg/mL (1mL) INJ 1 mg 1 mL, IV Push, q3h melatonin 3 mg tablet 3 mg 1 tab(s), Oral, qHS melatonin 3 mg tablet 3 mg 1 tab(s), Oral, qHS ondansetron 2 mg/ 1 mL 2 mL INJ 4 mg 2 mL, IV Push, q4h Lab Results 11/29 07:32 WBC: 10.8 Hgb: 11.2 L Hct: 32.9 L Platelet: 372 Neutrophil %: 72.8 Glucose Level: 96 Sodium Level: 135 L Potassium Level: 2.8 L BUN: <5.0 L Creatinine Lvl (s): 0.37 L EKG No qualifying data available. Assessment/Plan Pancreatitis likely secondary to alcohol use Abdominal pain Enteritis versus small bowel obstruction Severe hypokalemia Mild hyponatremia Normocytic anemia Hypoalbuminemia Bilateral pleural effusion Asthma not in exacerbation IBS Hepatic steatosis Alcohol use Plan: Patient presented as a transfer from [facility] for GI and general surgery evaluation due to concern for enteritis, small bowel section and pancreatitis. Overnight, patient had multiple episodes of watery diarrhea contributing to electrolyte disturbances including severe hypokalemia with potassium 2.8. She does have chronic diarrhea however also received tapwater enema yesterday. Given her persistent abdominal pain, enteritis, diarrhea it is reasonable to check stool studies. Lipase is stable. Will change IV fluids to LR given hypokalemia to keep up with GI loss. Repeat CT scan abdomen/pelvis to look for any changes. Continue ceftriaxone meanwhile ultrasound abdomen results reviewed. If findings associated with worsening enteritis, and stool studies are negative, may benefit from addition of metronidazole. Her diarrhea could be from an enema.She is otherwise afebrile and has no leukocytosis. If repeat imaging shows improvement in abdominal pain improved, can increase diet to full liquid if okay with GI and gastroenterology. She will need endoscopic evaluation in the outpatient setting. Will defer to GI. Encouraged her to limit opioid use. Adjust her pain regimen and change Dilaudid for breakthrough pain. Appreciate input from gastroenterology and general surgery. Replace electrolytes aggressively with oral Effer-K as well as magnesium sulfate. Repeat BMP in the afternoon. Repeat chest x-ray to follow-up on pleural effusion. Likely reactive to pancreatitis. She is currently denying any worsening shortness of breath and not requiring oxygen. Encouraged her to mobilize. As needed breathing treatment for history of asthma. Counseled on alcohol cessation. Plan of care discussed with patient at bedside her questions answered Digitally Signed by JUICE CHACKO MD on 11/30/2023 09:41 AM [facility] 11-29-2023 Gastroenterology Consult note Date of Service 11/29/2023 Reason for Consultation SBO Referring Physician Hospitalist History of Present Illness Patient is a 33-year-old female with past medical history significant for asthma, GERD, anxiety and tobacco use whom we have been consulted to evaluate for SBO. Admitted to [facility] 11/22 with abdominal pain secondary to assumed alcohol induced pancreatitis. WBC 17.5. Lipase >375. CT A/P demonstrated findings compatible with acute, uncomplicated pancreatitis. Also noted mucosal thickening and enhancement of the TI concerning for IBD such as Crohn's. CRP elevated at 8.3. ESR WNL. At [place], she was aggressively hydrated with IV fluids and given opioid pain medications. KUB (11/25) concerning for ileus versus SBO. NGT placed. Transitioned from narcotics to Toradol. Also appears to have required Lasix due to bilateral pleural effusions. Due to minimal improvement in KUB and ongoing abdominal pain, she was transferred [facility] last [facility]. On arrival to [facility] yesterday: WBC 8.6, Hgb 11.8, MCV 95.3, PLT 321. K 3.2, calcium 7.7, mag 1.7. Albumin 1.8. LFTs WNL. US noted coarsened coarsening to liver with increased echogenicity c/w steatosis or other diffuse hepatocellular disease. No focal liver lesions. No biliary duct dilation. CBD 2.3 mm. Hx cholecystectomy. Pancreas not visualized 2/2 bowel gas artifact. Trace ascites near liver. Possible small left pleural effusion. Triglycerides today WNL. Patient examined resting in bed. She is visibly tearful and uncomfortable. States her abdominal pain started on Wednesday the . She had some nonbloody emesis at [place], but no nausea or vomiting since presenting to [facility]. Abdominal pain is ongoing. Located mostly in the mid upper abdomen into the right side. She denies any aggravating factors. Obtains some relief with narcotics. She reports she has passed flatus and a small amount of nonbloody stool today. She denies any previous history of pancreatitis. No new medications. Although records indicate history of alcohol abuse, patient denies this. She states she did have a sixpack the Wednesday preceding her onset of abdominal pain. Usually just has a few drinks on the weekends . Reports during COVID she had an episode of elevated LFTs with subsequent improvement. Was told she had a fatty liver. She endorses history of chronic diarrhea and diagnosis of IBS D as a child. States she had a colonoscopy at that time. Cannot speak to any other details. Normally has about 3 loose stools daily. She has had no melena, hematochezia or acholic stools. No intentional weight loss. No known familial history of gastrointestinal diseases or malignancies. Review of Systems 10 point review of systems was completed. Pertinent positives/negatives are described above in the HPI and are otherwise negative. Physical Exam Vitals and Measurements T: 37 C (Oral) TMIN: 36.6 C (Oral) TMAX: 37.0 C (Oral) HR: 105 RR: 20 BP: 143/87 SpO2: 98% HT: 157.5 cm WT: 81.4 kg BMI: 32.81 Weight Dosing Weight: 81.4 kg (11/28/23) General Appearance: Lying in bed in no acute distress. Tearful. Head: Head is normocephalic and atraumatic. EENT: Sclera are nonicteric. Neck is supple without adenopathy. Trachea is midline. Cardiac: Heart rate and rhythm are normal. S1 and S2 noted. Lungs: No signs of respiratory distress. Lungs are clear anteriorly. Abdomen: Abdomen is rounded, semifirm. Tender to central mid/right mid abdomen. Faint distant tinkling BS Extremities: No edema noted. Neurological: The patient is awake, alert, and oriented to person, place, and time with normal speech. Skin: Skin is warm, dry. Appropriate color for ethnicity. Imaging Results and Diagnostics US Abdomen Complete Result Date: November 29, 2023 Verified By: ABDIRAHMAN SEXTON MD CLINICAL STATEMENT: IMPRESSION: Steatosis or other diffuse hepatocellular disease. Trace perihepatic ascites. Likely small left pleural effusion. This document was transcribed utilizing voice recognition software and may contain typographical errors. Assessment/Plan Problem list: Abnormal imaging > Acute pancreatitis without necrosis or abscess. No pseudocyst (CT A/P, 11/26) > Bilateral pleural effusions with moderate ascites (CT A/P, 11/26) > Wall thickening of terminal ileum and distal ileum, infectious versus inflammatory (CT A/P, 11/26) > Small bowel dilatation, pattern most c/w SBO (KUB, 11/27) Elevated lipase, improved (375-->125) Alcohol use Normal triglycerides (11/27) Chronic diarrhea We have been asked to evaluate the patient for SBO. General surgery is on board. Appreciate their recommendations. Per initial consult note last evening, they feel her abdominal pain is related to enteritis versus IBD. Nursing indicates primary team ordered NG to be removed this morning due to the patient's request/inability to tolerate. She has no current nausea or recent vomiting. If this should return, likely would benefit from replacing NG. Will defer further management of SBO as well as advancement of diet to surgical team. Patient was educated on the need to increase her mobility and ambulate in the gee at minimum 4 times daily to encourage GI motility. Also recommend limiting opioids due to their adverse GI side effects. Patient's imaging concerning for wall thickening of the terminal ileum which could be secondary to inflammatory bowel disease. Recommend further evaluation with colonoscopy in the outpatient setting after resolution of her acute issues. Etiology for her pancreatitis uncertain. Could be alcohol induced. She has no evidence of cholelithiasis on imaging. LFTs are normal. No evidence of hypertriglyceridemia or hypercalcemia. She does have pleural effusions and ascites on imaging which are likely reactive 2/2 to her acute pancreatitis. No evidence of cirrhosis on labs or imaging. No evidence of necrosis, abscess or pseudocyst on CT 11/26. Pain is likely secondary to her ileus/obstruction. May benefit from repeat imaging if her pain continues. Further orders/recommendations pending discussion with Dr. De Paz. Please refer to his addendum for same. Thank you for this consult. We will continue to follow. Problem List/Past Medical History Ongoing Acute URI Asthma Back pain with radiation Constipation in female Encounter by telehealth for suspected COVID-19 Enteritis Erythema nodosum Ileus No-show for appointment Pelvic pain Pleural effusion SBO (small bowel obstruction) Seasonal allergies URI with cough and congestion Historical Rash Procedure/Surgical History Cholecystectomy: 2008 None delivery Medications Inpatient cefTRIAXone, 2 gram(s)= 20 mL, IV Push (INT), qDay Dextrose 50% IV Push, 12.5 gram(s)= 25 mL, IV Push, AsDirected, PRN Dilaudid, 0.5 mg= 0.5 mL, IV Push, q3h, PRN Dilaudid, 1 mg= 1 mL, IV Push, q3h, PRN melatonin, 3 mg= 1 tab(s), Oral, qHS, PRN melatonin, 3 mg= 1 tab(s), Oral, qHS, PRN NS 1,000 mL, 1000 mL, Intravenous Protonix, 40 mg, IV Push, qDayAC Tylenol, 650 mg= 2 tab(s), Oral, q4h, PRN Zofran, 4 mg= 2 mL, IV Push, q4h, PRN Home albuterol MDI (90 mcg/inh) CFC free inhalation aerosol, 2 puff(s), Inhalation, q4h, PRN Protonix, 40 mg, IV Push, qDayAC Zosyn, 3.375 gram(s), IV Piggyback, q8h Allergies codeine (Nausea) Social History Smoking Status - 10/21/2017 Current every day smoker Alcohol - Medium Risk, 10/17/2018 Use: Current. Type: Beer. Frequency: 1-2 times per week. Has anyone been hurt or at risk by your drinking: No., 11/23/2023 Home/Environment Living situation: Home/Independent. Safe place to go: Yes. OTher risks in environment: daily smoke exposure. Financial concerns: No. Domestic Concerns: None. Lives In: Single level home. Current Home Treatments None., 11/23/2023 Nutrition/Health Caffeine intake amount: 1-2 servings daily. Appetite Fair. Eating Difficulties None., 11/23/2023 Substance Abuse - Denies Substance Abuse, 10/21/2017 Type: thc gummie., 11/23/2023 Use: Never., 02/01/2019 Tobacco - High Risk, 10/17/2018 Nicotine Use: 5-9 cigarettes (between 1/4 to 1/2 pack)/day in last 30 days. Type: Cigarettes., 11/23/2023 Family History COVID-19: Grandparent. Heart attack: Grandparent. Immunizations tetanus/diphth/pertuss (Tdap) adult/adol: 0.5 mL (09/29/21) Digitally Signed by RAMIREZ PETERSON on 11/29/2023 11:54 AM Digitally Signed by RAMIREZ PETERSON on 11/29/2023 03:38 PM [facility] 11-29-2023 Surgery Hospital Progress note Date of Service 11/29/2023 Chief Complaint Concern for SBO Subjective This is a split shared visit between myself and Dr. Hood Patient seen resting supine in bed earlier today with her significant other present at the bedside. She complained of right upper quadrant abdominal pain. She stated that she has been passing flatus and has moved her bowels today. Objective Vitals and Measurements T: 37 C (Oral) TMIN: 36.6 C (Oral) TMAX: 37.0 C (Oral) HR: 105 RR: 20 BP: 143/87 SpO2: 98% HT: 157.5 cm WT: 81.4 kg BMI: 32.81 Intake and Output 7AM Yesterday to 7AM Today Intake and Output (Last 24 hours) Intake Oral Intake 0.00 Administration Information 735.00 Output Stool Count 3.00 Urine Count 4.00 Total Summary Total Intake 735.00 Total Output 0.00 Fluid Balance 735.00 Physical Exam General: Awake, alert and oriented x4. Tearful able to answer questions appropriately and speak in full sentences. Supine in bed. HEENT: Sclera anicteric. Heart: Regular rate and rhythm. S1 and S2 present. Lungs: Chest rise symmetrical. Respirations unlabored. Abdomen: Rounded/obese, distended and tender with palpation of the right upper quadrant. No rigidity or guarding noted. Bowel sounds present. Extremities: Freely moving. Psychiatric: Tearful but cooperative. Weight Dosing Weight: 81.4 kg (11/28/23) Medications Medications (10) Active Scheduled: (2) cefTRIAXone IVP syringe 2 gram(s) 20 mL, IV Push (INT), qDay pantoprazole 40 mg VIAL 40 mg, IV Push, qDayAC Continuous: (1) NS (0.9% nacl) 1,000 mL 1,000 mL, Intravenous, 100 mL/hr PRN: (7) acetaminophen 325 mg Tablet 650 mg 2 tab(s), Oral, q4h dextrose 50% Solution Disp syringe 50 mL 12.5 gram(s) 25 mL, IV Push, AsDirected HYDROmorphone 0.5 mg/0.5 mL PF syringe 0.5 mg 0.5 mL, IV Push, q3h hydromorphone 1 mg/mL (1mL) INJ 1 mg 1 mL, IV Push, q3h melatonin 3 mg tablet 3 mg 1 tab(s), Oral, qHS melatonin 3 mg tablet 3 mg 1 tab(s), Oral, qHS ondansetron 2 mg/ 1 mL 2 mL INJ 4 mg 2 mL, IV Push, q4h Lab Results No 36 Hour Lab Data Imaging Results and Diagnostics US Abdomen Complete Result Date: November 29, 2023 Verified By: ABDIRAHMAN SEXTON MD CLINICAL STATEMENT: IMPRESSION: Steatosis or other diffuse hepatocellular disease. Trace perihepatic ascites. Likely small left pleural effusion. EKG No qualifying data available. Assessment/Plan This patient is a 33-year-old female transferred to [facility] on 11/28/2023 from [facility] after she was admitted there with concern for acute pancreatitis and concern for developing bowel obstruction. The general surgery service was consulted secondary to the concern for developing obstruction. She was seen and examined and primarily was complaining of pain to her right upper quadrant abdomen. She has been passing flatus and moving her bowels. Her abdomen was obese/rounded, and distended. She was tender with palpation of the right upper quadrant. Laboratory data, vital signs and I/O have been reviewed. An ultrasound of the abdomen was performed this morning showing steatosis or other diffuse hepatocellular disease and trace perihepatic ascites per the report. Plan: Concern for obstruction Patient is passing flatus and moving her bowels. At this time there are no plans for operative intervention. Continue conservative management. Medical management per the primary medical team/consultants. The case will be discussed with Dr. Hood. Please see his addendum for further details. Digitally Signed by TRAN SHORT on 11/29/2023 12:37 PM [facility] 11-29-2023 Evaluation + Plan note Extrac ryan from: Title:History and Physical Author:COMPA MAK Date:11/29/23 33-year-old female with a hi story of alcohol abuse is presenting with abdominal pain transferred from [place] due to concern for partial small bowel obstruction, uncontrolled pain from pancreatitis, ascites likely second to cirrhosis as well as bilateral pleural effusions will keep her n.p.o., gently hydrate her as not to exacerbate her ascites and pleural effusions will ask general surgery as well as GI to see her. Concern for partial small bowel obstruction n.p.o., patient is requesting to have NG tube out which is not unreasonable as she has not vomited in 24 hours, general surgery will see the patient Acute pancreatitis IV fluids pain control Alcohol abuse with ascites likely has undiagnosed cirrhosis will ask GI to weigh in may need paracentesis will cover with ceftriaxone as SBP is on the differential Alcohol abuse no evidence of withdrawal, will monitor if she still signs of DT will then start CIWA Bilateral pleural effusions likely due to third spacing from cirrhosis in combination with getting IV fluids will get a liver ultrasound, when she is able to tolerate p.o. may need fluid removal from paracentesis will defer to GI. Anxiety hesitant to give additional Ativan while she is getting IV narcotic pain medicine for above patient is somewhat understanding of this. GERD stable Asthma no evidence of flare stable Chronic low back pain stable DVT prophylaxis SCDs Full code [facility] 05-13-2024 Surgery Hospital Progress note Date of Service 11/29/2023 Chief Complaint Concern for SBO Subjective This is a split shared visit between myself and Dr. Hood Patient seen resting supine in bed earlier today with her significant other present at the bedside.She complained of right upper quadrant abdominal pain. She stated that she has been passing flatus and has moved her bowels today. Objective Vitals and Measurements T: 37 C (Oral) TMIN: 36.6 C (Oral) TMAX: 37.0 C (Oral) HR: 105 RR: 20 BP: 143/87 SpO2: 98% HT: 157.5 cm WT: 81.4 kg BMI: 32.81 Intake and Output 7AM Yesterday to 7AM Today Intake and Output (Last 24 hours) Intake Oral Intake 0.00 Administration Information 735.00 Output Stool Count 3.00 Urine Count 4.00 Total Summary Total Intake 735.00 Total Output 0.00 Fluid Balance 735.00 Physical Exam General: Awake, alert and oriented x4. Tearful able to answer questions appropriately and speak in full sentences. Supine in bed. HEENT: Sclera anicteric. Heart: Regular rate and rhythm. S1 and S2 present. Lungs: Chest rise symmetrical. Respirations unlabored. Abdomen: Rounded/obese, distended and tender with palpation of the right upper quadrant. No rigidity or guarding noted. Bowel sounds present. Extremities: Freely moving. Psychiatric: Tearful but cooperative. Weight Dosing Weight: 81.4 kg (11/28/23) Medications Medications (10) Active Scheduled: (2) cefTRIAXone IVP syringe 2 gram(s) 20 mL, IV Push (INT), qDay pantoprazole 40 mg VIAL 40 mg, IV Push, qDayAC Continuous: (1) NS (0.9% nacl) 1,000 mL 1,000 mL, Intravenous, 100 mL/hr PRN: (7) acetaminophen 325 mg Tablet 650 mg 2 tab(s), Oral, q4h dextrose 50% Solution Disp syringe 50 mL 12.5 gram(s) 25 mL, IV Push, AsDirected HYDROmorphone 0.5 mg/0.5 mL PF syringe 0.5 mg 0.5 mL, IV Push, q3h hydromorphone 1 mg/mL (1mL) INJ 1 mg 1 mL, IV Push, q3h melatonin 3 mg tablet 3 mg 1 tab(s), Oral, qHS melatonin 3 mg tablet 3 mg 1 tab(s), Oral, qHS ondansetron 2 mg/ 1 mL 2 mL INJ 4 mg 2 mL, IV Push, q4h Lab Results No 36 Hour Lab Data Imaging Results and Diagnostics US Abdomen Complete Result Date: November 29, 2023 Verified By: ABDIRAHMAN SEXTON MD CLINICAL STATEMENT: IMPRESSION: Steatosis or other diffuse hepatocellular disease. Trace perihepatic ascites. Likely small left pleural effusion. EKG No qualifying data available. Assessment/Plan This patient is a 33-year-old female transferred to [facility] on 11/28/2023 from [facility] after she was admitted there with concern for acute pancreatitis and concern for developing bowel obstruction. The general surgery service was consulted secondary to the concern for developing ob struction. She was seen and examined and primarily was complaining of pain to her right upper quadrant abdomen. She has been passing flatus and moving her bowels. Her abdomen was obese/rounded, and distended. She was tender with palpation of the right upper quadrant. Laboratory data, vital signs and I/O have been reviewed. An ultrasound of the abdomen was performedthis morning showing steatosis or other diffuse hepatocellular disease and trace perihepatic ascites per the report. Plan: Concern for obstruction Patient is passing flatus and moving her bowels. At this time there are no plans for operative intervention. Continue conservative management. Medical management per the primary medical team/consultants. The case will be discussed with Dr. Hood. Please see his addendum for further details. Digitally Signed by TRAN SHORT on 11/29/2023 12:37 PM [id number] Gastroenterology Consult note Date of Service 11/29/2023 Reason for Consultation SBO Referring Physician Hospitalist History of Present Illness Patient is a 33-year-old female with past medical history significant for asthma, GERD, anxiety andtobacco use whom we have been consulted to evaluate for SBO. Admitted to [facility] 11/22 with abdominal pain secondary to assumed alcohol induced pancreatitis. WBC 17.5. Lipase >375. CT A/P demonstrated findings compatible with acute, uncomplicated pancreatitis. Also noted mucosal thickening and enhancement of the TI concerning for IBD such as Crohn's. CRP elevated at 8.3. ESR WNL. At [place], she was aggressively hydrated with IV fluids and given opioid pain medications. KUB (11/25) concerning for ileus versus SBO. NGT placed. Transitioned from narcotics to Toradol. Also appears to have required Lasix due to bilateral pleural effusions. Due to minimal improvement in KUB and ongoing abdominal pain, she was transferred to [facility] last evening. On arrival to [facility] yesterday: WBC 8.6, Hgb 11.8, MCV 95.3, PLT 321. K 3.2, calcium 7.7, mag 1.7. Albumin 1.8. LFTs WNL. US noted coarsened coarsening to liver with increased echogenicity c/w steatosis or other diffuse hepatocellular disease. No focal liver lesions. No biliary duct dilation. CBD 2.3 mm. Hx cholecystectomy. Pancreas not visualized 2/2 bowel gas artifact. Trace ascites near liver. Possible small left pleural effusion. Triglycerides today WNL. Patient examined resting in bed. She is visibly tearful and uncomfortable. States her abdominal pain started on Wednesday the . She had some nonbloody emesis at [place], but no nausea or vomiting since presenting to [facility]. Abdominal pain is ongoing. Located mostly in the mid upper abdomen into the right side. She denies any aggravating factors. Obtains some relief with narcotics. She reports she has passed flatus and a small amount of nonbloody stool today. She denies any previous history of pancreatitis. No new medications. Although records indicate history of alcohol abuse, patient denies this. She states she did have a sixpack the Wednesday preceding her onset of abdominal pain.Usually just has a few drinks on the weekends . Reports during [facility] she had an episode of elevated LFTs with subsequent improvement. Was told she had a fatty liver. She endorses history of chronic diarrhea and diagnosis of IBS D as a child. States she had a colonoscopy at that time. Cannot speak to any other details. Normally has about 3 loose stools daily. She has had no melena, hematochezia or acholic stools. No intentional weight loss. No known familial history of gastrointestinal diseasesor malignancies. Review of Systems 10 point review of systems was completed. Pertinent positives/negatives are described above in the HPI and are otherwise negative. Physical Exam Vitals and Measurements T: 37 C (Oral) TMIN: 36.6 C (Oral) TMAX: 37.0 C (Oral) HR: 105 RR: 20 BP: 143/87 SpO2: 98% HT: 157.5 cm WT: 81.4 kg BMI: 32.81 Weight Dosing Weight: 81.4 kg (11/28/23) General Appearance: Lying in bed in no acute distress. Tearful. Head: Head is normocephalic and atraumatic. EENT: Sclera are nonicteric. Neck is supple without adenopathy. Trachea is midline. Cardiac: Heart rate and rhythm are normal. S1 and S2 noted. Lungs: No signs of respiratory distress. Lungs are clear anteriorly. Abdomen: Abdomen is rounded, semifirm. Tender to central mid/right mid abdomen. Faint distant tinkling BS Extremities: No edema noted. Neurological: The patient is awake, alert, and oriented to person, place, and time with normal speech. Skin: Skin is warm, dry. Appropriate color for ethnicity. Imaging Results and Diagnostics US Abdomen Complete Result Date: November 29, 2023 Verified By: ABDIRAHMAN SEXTON MD CLINICAL STATEMENT: IMPRESSION: Steatosis or other diffuse hepatocellular disease. Trace perihepatic ascites. Likely small left pleural effusion. This document was transcribed utilizing voice recognition software and may contain typographical errors. Assessment/Plan Problem list: Abnormal imaging > Acute pancreatitis without necrosis or abscess. No pseudocyst (CT A/P, 11/26) > Bilateral pleural effusions with moderate ascites (CT A/P, 11/26) > Wall thickening of terminal ileum and distal ileum, infectious versus inflammatory (CT A/P, 11/26) > Small bowel dilatation, pattern most c/w SBO (KUB, 11/27) Elevated lipase, improved (375-->125) Alcohol use Normal triglycerides (11/27) Chronic diarrhea We have been asked to evaluate the patient for SBO. General surgery is on board. Appreciate their recommendations. Per initial consult note last evening, they feel her abdominal pain is related to enteritis versus IBD. Nursing indicates primary team ordered NG to be removed this morning due to the patient's request/inability to tolerate. She has no current nausea or recent vomiting. If this should return, likely would benefit from replacing NG. Will defer further management of SBO as well as advancement of diet to surgical team. Patient was educated on the need to increase her mobility and ambulate in the gee at minimum 4 times daily to encourage GI motility. Also recommend limiting opioids due to their adverse GI side effects. Patient's imaging concerning for wall thickening of the terminal ileum which could be secondary to inflammatory bowel disease. Recommend further evaluation with colonoscopy in the outpatient setting after resolution of her acute issues. Etiology for her pancreatitis uncertain. Could be alcohol induced. She has no evidence of cholelithiasis on imaging. LFTs are normal. No evidence of hypertriglyceridemia or hypercalcemia. She does have pleural effusions and ascites on imaging which are likely reactive 2/2 to her acute pancreatitis.No evidence of cirrhosis on labs or imaging. No evidence of necrosis, abscess or pseudocyst on CT 11/26. Pain is likely secondary to her ileus/obstruction. May benefit from repeat imaging if her pain continues. Further orders/recommendations pending discussion with Dr. De Paz. Please refer to his addendum saritha. Thank you for this consult. We will continue to follow. Problem List/Past Medical History Ongoing Acute URI Asthma Back pain with radiation Constipation in female Encounter by telehealth for suspected COVID-19 Enteritis Erythema nodosum Ileus No-show for appointment Pelvic pain Pleural effusion SBO (small bowel obstruction) Seasonal allergies URI with cough and congestion Historical Rash Procedure/Surgical History Cholecystectomy: 2008 None delivery Medications Inpatient cefTRIAXone, 2 gram(s)= 20 mL, IV Push (INT), qDay Dextrose 50% IV Push, 12.5 gram(s)= 25 mL, IV Push, AsDirected, PRN Dilaudid, 0.5 mg= 0.5 mL, IV Push, q3h, PRN Dilaudid, 1 mg= 1 mL, IV Push, q3h, PRN melatonin, 3 mg= 1 tab(s), Oral, qHS, PRN melatonin, 3 mg= 1 tab(s), Oral, qHS, PRN NS 1,000 mL, 1000 mL, Intravenous Protonix, 40 mg, IV Push, qDayAC Tylenol, 650 mg= 2 tab(s), Oral, q4h, PRN Zofran, 4 mg= 2 mL, IV Push, q4h, PRN Home albuterol MDI (90 mcg/inh) CFC free inhalation aerosol, 2 puff(s), Inhalation, q4h, PRN Protonix, 40 mg, IV Push, qDayAC Zosyn, 3.375 gram(s), IV Piggyback, q8h Allergies codeine (Nausea) Social History Smoking Status - 10/21/2017 Current every day smoker Alcohol - Medium Risk, 10/17/2018 Use: Current. Type: Beer. Frequency: 1-2 times per week. Has anyone been hurt or at risk by your drinking: No., 11/23/2023 Home/Environment Living situation: Home/Independent. Safe place to go: Yes. OTher risks in environment: daily smoke exposure. Financial concerns: No. Domestic Concerns: None. Lives In: Single level home. Current HomeTreatments None., 11/23/2023 Nutrition/Health Caffeine intake amount: 1-2 servings daily. Appetite Fair. Eating Difficulties None., 11/23/2023 Substance Abuse - Denies Substance Abuse, 10/21/2017 Type: thc gummie., 11/23/2023 Use: Never., 02/01/2019 Tobacco - High Risk, 10/17/2018 Nicotine Use: 5-9 cigarettes (between 1/4 to 1/2 pack)/day in last 30 days. Type: Cigarettes., 11/23/2023 Family History COVID-19: Grandparent. Heart attack: Grandparent. Immunizations tetanus/diphth/pertuss (Tdap) adult/adol: 0.5 mL (09/29/21) Digitally Signed by RAMIREZ PETERSON on 11/29/2023 11:54 AM Digitally Signed by RAMIREZ PETERSON on 11/29/2023 03:38 PM [facility] [id number] Progress note Date of Service 11/28 Subjective Pt laying in bed; abdomen fairly distended. No having any acute alcohol withdrawal. Objective Vitals and Measurements T: 37 C (Oral) TMIN: 36.6 C (Oral) TMAX: 37.0 C (Oral) HR: 105 RR: 20 BP: 143/87 SpO2: 98% HT: 157.5 cm WT: 81.4 kg BMI: 32.81 Intake and Output 7AM Yesterday to 7AM Today Intake and Output (Last 24 hours) Intake Oral Intake 0.00 Administration Information 735.00 Output Stool Count 3.00 Urine Count 4.00 Total Summary Total Intake 735.00 Total Output 0.00 Fluid Balance 735.00 Physical Exam GENERAL: No acute distress. HEAD: Normocephalic, atraumatic. EYES: Pupils equal round reactive to light and accommodation. Extraocular eye movements intact. MOUTH: Moist membranes. NECK: Supple. CARDIOVASCULAR: S1 S2 heard, regular rate and rhythm, no murmurs. No JVD, no edema. RESPIRATORY: Clear to auscultation bilaterally, no wheezes, rales or ronchi. ABDOMEN: distended; tender all 4 quadrants. NEUROLOGIC: Awake, alert and oriented x3, no focal neurologic deficits. PSYCHIATRIC: Normal mood and affect. Weight Dosing Weight: 81.4 kg (11/28/23) Medications Medications (10) Active Scheduled: (2) cefTRIAXone IVP syringe 2 gram(s) 20 mL, IV Push (INT), qDay pantoprazole 40 mg VIAL 40 mg, IV Push, qDayAC Continuous: (1) NS (0.9% nacl) 1,000 mL 1,000 mL, Intravenous, 100 mL/hr PRN: (7) acetaminophen 325 mg Tablet 650 mg 2 tab(s), Oral, q4h dextrose 50% Solution Disp syringe 50 mL 12.5 gram(s) 25 mL, IV Push, AsDirected HYDROmorphone 0.5 mg/0.5 mL PF syringe 0.5 mg 0.5 mL, IV Push, q3h hydromorphone 1 mg/mL (1mL) INJ 1 mg 1 mL, IV Push, q3h melatonin 3 mg tablet 3 mg 1 tab(s), Oral, qHS melatonin 3 mg tablet 3 mg 1 tab(s), Oral, qHS ondansetron 2 mg/ 1 mL 2 mL INJ 4 mg 2 mL, IV Push, q4h Lab Results No 36 Hour Lab Data EKG No qualifying data available. Assessment/Plan Status Ascites Chronic alcoholism Concern for partial small bowel obstruction Bilateral pleural effusions History of anxiety History of GERD History of Asthma -Old female with a past medical history of alcohol abuse is a transfer from [facility] due to concern for partial SBO in addition to pancreatitis and ascites likely secondary to cirrhosis as well as bilateral pleural effusions Neurology has been consulted appreciate their recommendations The patient requested her NG tube be removed which was done on 11/28/2023 the patient has no longer had any vomiting; - Gen surg did evaluate the pt : No plans for urgent or emergent surgery unless bleeding perforation or obstruction Patient would benefit from colonoscopy and terminal ileoscopy - Acute pancreatitis IV fluids pain control - Alcohol abuse with ascites likely has undiagnosed cirrhosis will cont to cover with ceftriaxone as SBP is on the differential Alcohol abuse no evidence of withdrawal, will monitor if she still signs of DT will then start CIWA -Bilateral pleural effusions likely due to third spacing from cirrhosis in combination with gettingIV fluids will get a liver ultrasound, when she is able to tolerate p.o. may need fluid removal from paracentesis will defer to GI. DVT prophylaxis SCDs Full code Digitally Signed by NATANAEL RODRIGUEZ MD on 11/29/2023 11:25 AM [facility] [id number] Note ORIGINAL EXAMINATION: COMPLETE ABDOMINAL ULTRASOUND11/29/2023 8:12 am ULTRASOUND ABDOMEN COMPLETE, COMPARISON: CT 11/23/2023 HISTORY: ORDERING SYSTEM PROVIDED HISTORY: Reason for Exam: Abdominal Pain, recent pancreatitis FINDINGS: The liver is coarsened with diffusely increased echogenicity. There is masking of the portal triads and the diaphragm. No focal lesion is seen.. There is no intrahepatic bile duct dilatation. The common duct is 2.3 mm at the elsa hepatis. The gallbladder is not visualized surgically absent by given history.. The pancreas is almost completely obscured by bowel gas artifacts.. The spleen is normal in size and echogenicity. There is a trace amount of ascites around the dome of the liver. No fluid in the Freed's pouch or remainder of the upper abdomen. There is likely small left pleural effusion. Limited survey images of the kidneys show normal cortical thickness and echogenicity. No pelvocaliectasis. . The aorta and IVC are also partly obscured by bowel gas artifacts and poorly evaluated.. IMPRESSION: Steatosis or other diffuse hepatocellular disease. Trace perihepatic ascites. Likely small left pleural effusion. Interpreted by: Abdirahman Sexton MD Preliminary Report By: Abdirahman Sexton MD Electronically signed By Abdirahman Sexton MD Dictated Date: 11/29/2023 10:18:41 AM Prelim Date: 11/29/2023 10:27:40 AM Sign Date: 11/29/2023 10:27:40 AM Ordering Provider: COMPA [id number] History and physical note Date of Service 11/28/2023 Chief Complaint pancreatitis, psbo History of Present Illness 33-year-old female with a history of alcohol abuse, anxiety, GERD, presented to [place] emergency department with abdominal pain CT abdomen pelvis showed acute pancreatitis and was admitted to the hospital service unfortunately the patient's pain continued to get worse she was reimaged during her hospital stay and showed persistent acute pancreatitis with a developing partial small bowel obstruction NG tube was ordered patient had trouble tolerating the NG tube to get out but was then agreeable to have it replaced her pain did not get any better and she was transferred to [facility] for surgical consultation Upon arrival to floor patient is having some abdominal pain but she says the last time she has vomited was 24 hours ago and is requesting to have the NG tube out she is also requesting something for pain Patient was seen and examined in the presence of her nurse Josee CT of the pelvis from 11/27/2023 1. There is redemonstration of acute pancreatitis. There is no evidence of pancreatic necrosis or abscess. There is no pseudocyst. 2. There is interval development of mild moderate diffuse enlargement of the small bowel with wall thickening, compatible with diffuse ileus and enteritis, with transition zone at the distal ileum, suggestive of an element of partial small bowel obstruction. There is redemonstration of diffuse wall thickening of the terminal ileum and distal ileum compatible with inflammatory versus infectious process. 3. There is interval development of bilateral moderate pleural effusions, and bilateral lower lobe atelectasis. There is new moderate ascites. Dc summary/transfer note Date of Service 11/28/23 Discharge Diagnosis Alcohol induced acute pancreatitis (K85.20 - ICD-10-CM) Asthma (J45.909 - ICD-10-CM) Enteritis (K52.9 - ICD-10-CM) Ileus (K56.7 - ICD-10-CM) Pleural effusion (J90 - ICD-10-CM) Pleural effusion (J90 - ICD-10-CM) SBO (small bowel obstruction) (K56.609 - ICD-10-CM) Tobacco use (Z72.0 - ICD-10-CM) Hospital Course 33-year-old female with past medical history significant for asthma, tobacco use. Patient presented to [facility] emergency department on 11/23/2023 with reports of lower abdominal pain that radiated to her back that started early in the morning. She had associated nausea and vomiting with this. She states that she did have an episode of binge drinking on 11/19/2023. In the emergency department vital signs were stable. White blood cell count 17.5. Potassium level 5.9, lipasegreater than 375. CT abdomen and pelvis demonstrate findings compatible with acute, uncomplicated pancreatitis. Mucosal thickening and enhancement of the terminal ileum concerning for inflammatory bowel disease such as Crohn's. Possible hepatic cyst adjacent to the falciform ligament versus fatty infiltration. Patient was treated with aggressive IV fluids and opioid analgesics. She was trialed on clear liquids and did not tolerate this very well. On 11/25 KUB done due to continued abdominal discomfort, nausea and vomiting. This was notable for ileus versus SBO. NG tube was placed and immediately returned 600 mL of brown liquid. Opioid analgesics were discontinued. She was started on Toradol for pain. She was quite anxious about having an NG tube placed. She was given Ativan. She was encouraged to ambulate however she was completely opposed to this. Patient was asking for NG to be removed due to sorethroat. She was repeatedly asking for Dilaudid. She wanted to be knocked out . She insisted that nursing take NG out morning of 11/26. repeat KUB showed persistent dilated loops of small bowel which appear marginally improved from the prior study. Low- grade SBO can not excluded. She was agreeable to having the NG tube reinserted if she got a dose of Ativan. She was given Ativan 0.5 mg IV and NG tube was reinserted. 10 minutes later she insisted to the nursing that it be removed. Patient's mother came in and talk to patient and to placing it once again. Patient did have some improvement in abdominal distention however her pain seemed out of proportion. On labs she had no leukocytosis however differential was notable for 18% bands. CT abdomen and pelvis obtained Demonstrating pancreatitis with no necrosis or abscess. Diffuse ileus and enteritis, diffuse wall thickeningof the terminal ileum and distal ileum compatible with inflammatory versus infectious process. Alsonotable for moderate bilateral pleural effusions and atelectasis with new moderate ascites. Fluids were decreased. Given bandemia and enteritis, patient was prophylactically initiated on Zosyn. On day of discharge Repeat KUB showed persistent small bowel dilation with pattern most consistent with small bowel obstruction. Patient has had 1 L of output from NG tube. Initially it was dark brown and now it is dark green. XR chest showed moderate pleural effusions with atelectasis or consolidation. Pt has been adamantly refusing to use incentive spirometer. She has also refused to get out of bed to ambulate. Given that there is no surgical coverage here at [place] today or tomorrow decision was made to transfer patient to [facility] for surgery consultation as well as possible GI consultation for consideration of inflammatory bowel disease. She was agreeable to this. Prior to discharge she was given a dose of Lasix 40 mg IV for bilateral pleural effusions. She did have improvement in respiratory status following this. Fluids were discontinued. Of note patient has exhibited med seeking behavior. She has requested Dilaudid and Ativan numerous times despite multiple attempts of educating patient against this. Review of Systems All pertinent positive and negative review of systems as per HPI, all other review of systems reviewed and negative Physical Exam Vitals and Measurements T: 36.8 C (Oral) TMIN: 36.6 C (Oral) TMAX: 36.8 C (Oral) HR: 88 RR: 16 BP: 124/79 SpO2: 100% HT: 157.5 cm WT: 81.4 kg BMI: 32.81 Weight Dosing Weight: 81.4 kg (11/28/23) GENERAL: Mild distress nontoxic ASSISTIVE DEVICES: None PSYCHIATRIC: anxious HEENT moist mucous membranes extraocular muscles intact CARDIOVASCULAR: Regular rate, regular rhythm, no murmurs noted. Notrace lower extremity pitting edema. No lymphedema. Dorsalis Pedis pulses+2/4 blaterally . Posterior Tibialis pulses+2/4 bilaterally . RESPIRATORY: Regular rate and depth; no distress, RIGHT lungclear ; LEFT lungclear . Breath soundsnormal . ABDOMEN soft, no guarding, generalized tenderness worse in the left lower quadrant, distended, hypoactive bowel sounds bowel sounds, NEURO: no focal deficits DERM: no acute rash Exam done in the presence of the patient's nurse Josee Lab Results No 36 Hour Lab Data Assessment/Plan 33-year-old female with a history of alcohol abuse is presenting with abdominal pain transferred from [place] due to concern for partial small bowel obstruction, uncontrolled pain from pancreatitis,ascites likely second to cirrhosis as well as bilateral pleural effusions will keep her n.p.o., gently hydrate her as not to exacerbate her ascites and pleural effusions will ask general surgery as well as GI to see her. Concern for partial small bowel obstruction n.p.o., patient is requesting to have NG tube out whichis not unreasonable as she has not vomited in 24 hours, general surgery will see the patient Acute pancreatitis IV fluids pain control Alcohol abuse with ascites likely has undiagnosed cirrhosis will ask GI to weigh in may need paracentesis will cover with ceftriaxone as SBP is on the differential Alcohol abuse no evidence of withdrawal, will monitor if she still signs of DT will then start CIWA Bilateral pleural effusions likely due to third spacing from cirrhosis in combination with getting IV fluids will get a liver ultrasound, when she is able to tolerate p.o. may need fluid removal fromparacentesis will defer to GI. Anxiety hesitant to give additional Ativan while she is getting IV narcotic pain medicine for abovepatient is somewhat understanding of this. GERD stable Asthma no evidence of flare stable Chronic low back pain stable DVT prophylaxis SCDs Full code Problem List/Past Medical History Ongoing Acute URI Asthma Back pain with radiation Constipation in female Encounter by telehealth for suspected COVID-19 Enteritis Erythema nodosum Ileus No-show for appointment Pelvic pain Pleural effusion SBO (small bowel obstruction) Seasonal allergies URI with cough and congestion Historical Rash Procedure/Surgical History Cholecystectomy: 2008 None delivery Medications Home Medications (3) Active albuterol MDI (90 mcg/inh) CFC free inhalation aerosol 2 puff(s), PRN, Inhalation, q4h Protonix 40 mg, IV Push, qDayAC Zosyn 3.375 gram(s), IV Piggyback, q8h Allergies codeine (Nausea) Social History Smoking Status - 10/21/2017 Current every day smoker Alcohol - Medium Risk, 10/17/2018 Use: Current. Type: Beer. Frequency: 1-2 times per week. Has anyone been hurt or at risk by your drinking: No., 11/23/2023 Home/Environment Living situation: Home/Independent. Safe place to go: Yes. OTher risks in environment: daily smoke exposure. Financial concerns: No. Domestic Concerns: None. Lives In: Single level home. Current HomeTreatments None., 11/23/2023 Nutrition/Health Caffeine intake amount: 1-2 servings daily. Appetite Fair. Eating Difficulties None., 11/23/2023 Substance Abuse - Denies Substance Abuse, 10/21/2017 Type: thc gummie., 11/23/2023 Use: Never., 02/01/2019 Tobacco - High Risk, 10/17/2018 Nicotine Use: 5-9 cigarettes (between 1/4 to 1/2 pack)/day in last 30 days. Type: Cigarettes., 11/23/2023 Family History COVID-19: Grandparent. Heart attack: Grandparent. Immunizations tetanus/diphth/pertuss (Tdap) adult/adol: 0.5 mL (03/14/22) Code Status Code Status - Ordered -- 11/28/23 20:26:00 EDT, Full Code, Constant Order Digitally Signed by COMPA MAK MD on 11/29/2023 01:00 AM [facility] [id number] Surgery Consult note Date of Service 11/28/2023 Reason for Consultation Abdominal pain abnormal CAT scan History of Present Illness Very pleasant 33-year-old with history of alcohol induced pancreatitis and chronic intractable diarrhea with abnormal CAT scan suggesting Crohn's disease. Patient was transferred due to concern for bowel obstruction due to bowel wall thickening on recent CAT scan. Patient currently denies nausea vomiting fevers or chills. She complains of diffuse abdominal pain exacerbated by movement and eating and improved by IV narcotics. Patient notes a lifelong history of diarrhea. She denies any blood or mucus. She has not had a recent colonoscopy but was told she had irritable bowels in the past. Review of Systems Constitutional: Denies fevers chills or weight loss or night sweats Eyes: Denies change in vision or hearing Ears, Nose, Mouth & Throat: Denies drainage Cardiovascular: Denies chest pain shortness of breath Respiratory: Dyspnea due to abdominal distention Gastrointestinal: See HPI Genitourinary: Denies dysuria hematuria fecal urea and pneumaturia Musculoskeletal: Denies focal deficits Skin: Heavily inked skin. History of erythema nodosum Neurological: Denies deficits Psychiatric: Denies psych Endocrine: Denies polyuria polydipsia hot or cold intolerance Hematologic/Lymphatic: Denies lymphadenopathy Allergic/Immunologic: Denies immune deficit Physical Exam Vitals and Measurements T: 36.8 C (Oral) TMIN: 36.6 C (Oral) TMAX: 36.8 C (Oral) HR: 88 RR: 16 BP: 124/79 SpO2: 100% HT: 157.5 cm WT: 81.4 kg BMI: 32.81 Weight Dosing Weight: 81.4 kg (11/28/23) GENERAL: Well nourished; no acute distress. Alert and oriented x 3, cooperative HEAD: Normocephalic, nontraumatic head. EYES: Pupils equal, round, and reactive to light; conjunctiva clear bilaterally. Lids within normallimits. ENT: Oropharynx without erythema. Tonsils within normal limits. Nasal mucosa within normal limits. NECK: Supple, no posterior midline tenderness. Normal range of motion. No thyromegaly noted. CARDIAC: Regular rate, regular rhythm, no murmurs noted. RESPIRATORY: Regular rate and depth; no distress, RIGHT lung clear, LEFT lung clear. Breath sounds normal. ABDOMEN: Obese, distended. Free of peritoneal signs. Palpable fluid wave EXTREMITIES: No _ lower extremity pitting edema. No lymphedema. Dorsalis Pedis pulse +2/4 bilaterally. Posterior Tibialis pulse +2/4 bilaterally. NEURO: Cranial Nerves II-XII grossly intact; MUSCULOSKELETAL: Gait normal. No scoliosis. +5/5 RIGHT knee extension strength; +5/5 LEFT knee extension strength; +5/5 RIGHT great toe dorsiflexion; +5/5 LEFT great toe dorsiflexion. DERM: Warm and dry. Normal turgor. Lab Results No 36 Hour Lab Data Imaging Results and Diagnostics CAT scan reviewed and independently interpreted by myself. Copious ascites. Terminal ileal thickening. Markedly abnormal small intestine with narrowing Assessment/Plan Abdominal pain related to enteritis or inflammatory bowel disease No plans for urgent or emergent surgery unless bleeding perforation or obstruction Patient would benefit from colonoscopy and terminal ileoscopy Surgical team will follow Problem List/Past Medical History Ongoing Acute URI Asthma Back pain with radiation Constipation in female Encounter by telehealth for suspected COVID-19 Enteritis Erythema nodosum Ileus No-show for appointment Pelvic pain Pleural effusion SBO (small bowel obstruction) Seasonal allergies URI with cough and congestion Historical Rash Procedure/Surgical History Cholecystectomy: 2008 None delivery Medications Inpatient Dextrose 50% IV Push, 12.5 gram(s)= 25 mL, IV Push, AsDirected, PRN Dilaudid, 0.5 mg= 0.5 mL, IV Push, q3h, PRN Dilaudid, 1 mg= 1 mL, IV Push, q3h, PRN melatonin, 3 mg= 1 tab(s), Oral, qHS, PRN melatonin, 3 mg= 1 tab(s), Oral, qHS, PRN NS 1,000 mL, 1000 mL, Intravenous Tylenol, 650 mg= 2 tab(s), Oral, q4h, PRN Zofran, 4 mg= 2 mL, IV Push, q4h, PRN Home albuterol MDI (90 mcg/inh) CFC free inhalation aerosol, 2 puff(s), Inhalation, q4h, PRN Protonix, 40 mg, IV Push, qDayAC Zosyn, 3.375 gram(s), IV Piggyback, q8h Allergies codeine (Nausea) Social History Smoking Status - 10/21/2017 Current every day smoker Alcohol - Medium Risk, 10/17/2018 Use: Current. Type: Beer. Frequency: 1-2 times per week. Has anyone been hurt or at risk by your drinking: No., 11/23/2023 Home/Environment Living situation: Home/Independent. Safe place to go: Yes. OTher risks in environment: daily smoke exposure. Financial concerns: No. Domestic Concerns: None. Lives In: Single level home. Current HomeTreatments None., 11/23/2023 Nutrition/Health Caffeine intake amount: 1-2 servings daily. Appetite Fair. Eating Difficulties None., 11/23/2023 Substance Abuse - Denies Substance Abuse, 10/21/2017 Type: thc gummie., 11/23/2023 Use: Never., 02/01/2019 Tobacco - High Risk, 10/17/2018 Nicotine Use: 5-9 cigarettes (between 1/4 to 1/2 pack)/day in last 30 days. Type: Cigarettes., 11/23/2023 Family History COVID-19: Grandparent. Heart attack: Grandparent. Immunizations tetanus/diphth/pertuss (Tdap) adult/adol: 0.5 mL (09/29/21) Digitally Signed by WENCESLAO HO MD on 11/28/2023 11:28 PM [id number] Note Discharge Instructions Thank you for allowing [facility] to assist you with your healthcare needs. The following is importantdischarge information regarding your hospital visit. Your Care Team [facility] Your Diagnosis Alcohol induced acute pancreatitis Asthma Enteritis Ileus Pleural effusion, Pleural effusion SBO (small bowel obstruction) Tobacco use Allergies codeine (Nausea) Medications Please ask your primary doctor or pharmacist before taking any other medication not listed, including over the counter drugs, herbal medications, vitamins and or supplements as they may interact withyour home medications. What How Much When Why Instructions Last Dose New pantoprazole (Protonix) 40 Milligram IV Push Once a day before a meal 11/28/2023 0839 New piperacillin-tazobactam (Zosyn) 3.375 gram(s) IV Piggyback Every 8 hours 11/28/2023 1200 Unchanged albuterol (albuterol MDI (90 mcg/ inh) CFC free inhalation aerosol) 2 puff(s) by inhalation Every 4 hours as needed for as needed for wheezing URI with cough and congestion Encounter by telehealth for suspected COVID-19 11/27/2023 1251 Please take this list to your next doctor s visit. Bring all medications you take, including over the counter medications, herbals and other supplements with you to your doctor s visit. Patients and families are reminded to discard old lists and to update any records with all medication providers or retail pharmacies. Additional Information VACCINATE! IT SAVES LIVES! Members of the community who have not yet received the COVID-19 vaccine and would like to receive it can visit one of [facility] vaccine clinics. There are many vaccine clinic locations within the [facility]. For locations and available times, please visit [email or web address] It is important to note that some COVID mobile vaccine clinics are held outdoors and may be canceled in rainy or stormy conditions. To learn more about pediatric vaccinations (ages 5-11), we invite you to visit the [facility] webpage. [email or web address] learn more about the COVID-19 vaccine, we invite you to visit the CDC website for a list of frequently asked questions.https://www.cdc.gov/coronavirus/2019-ncov/vaccines/faq.html [employer] Patient Portal Access Instructions: Stay connected with your healthcare team and access your personal medical information anytime with the [employer] Patient Portal. Please follow the directions below to create your [employer] account: 1.Access the email account you provided upon registration to the hospital/physician office.2.Look for an invitation email from [facility].3.Open the email and access the invitation link: AcceptInvitation to [employer].4.Fill in the required villafana to create your account. To access your account, visit [employer]. Click the blue button labeled Access Patient Portal and then log in with the username and password that you created in the steps above. You will be able to view your test results, lab results, a summary of your visits, upcoming appointments and more. There is also a convenient messaging option where you can send secure messages to your p rovider. In addition, you will have the ability to download any documents or summaries to your computer and/or send the information securely to a physician. Remember that your healthcare information is confidential, so carefully consider who you will allowto register on the [facility] for access to your information. You can also access the [facility] on the [facility] melva. Simply click on Patient Portal and then log into your account. If you would like to receive a full copy of your medical records, please contact the [facility] Medical Records Department by calling [phone], Wednesday through Wednesday between 8 a.m. and 4:30 p.m. HOW TO SAFELY DISPOSE OF PRESCRIPTION MEDICATIONS Please use one of the following methods to safely dispose of your unused medications. 1.Use a drug disposal kit: the drug disposal pouch allows you to safely discard your old and unuseddrugs. Ask your nurse to give you one when you are discharged.2.Visit a local take-back location: Many local pharmacies and police departments have programs that collect old and unwanted prescriptiondrugs. Call your local pharmacy or go to http://goodideazs.DineGasm/2E8Tk8h to find one close to you.3.Make use of household items: Use cat litter or old coffee grounds to dispose medications if other options arenot available. Mix your drugs with these household products, seal them in an airtight container andthrow it into the garbage. Call [facility]: [phone] to be sure your drugs can be disposed of in this way. Some medicines may require a different approach.4.Never flush your medications down the toilet. IF YOU HAVE BEEN PRESCRIBED AN OPIOID FOR PAIN If you have been prescribed an opioid (such as hydrocodone, oxycodone or morphine), it is critical to understand the possible side effects and risks of opioid pain medications. Even when taken as directed, opioids can have several side effects including: Tolerance, meaning you might need to take more of a medication for the same pain relief. Nausea, vomiting and/or constipation. Sleepiness, dizziness, dry mouth, confusion, depression or itching. Physical dependence, meaning you have withdrawal symptoms when a medication is stopped, can develop within a few days. KNOW YOUR RESPONSIBILITIES It is important to know exactly how much and how often to take the opioid pain medications you are prescribed. Never take opioids in higher amounts or more often than prescribed. Do not combine opioids with alcohol or other drugs that cause drowsiness, such as benzodiazepines, also known as benzos, including diazepam and alprazolam, muscle relaxants or sleep aids. Never sell or share prescription opioids. This is illegal. Store opioids in a secure place and out of reach of others (including children, family, friends and visitors). The last page of this document has been signed and retained as a CHART COPY. Signatures Patient Education Materials Medication Leaflets My discharge plan and instructions have been reviewed and explained to me and ITIMBO BRIANA Munderstand my current condition and have read and understand these discharge instructions. I have received a written copy of the plan/instructions. If I have questions, I am aware that I should contact my doctor. Patient/Analyst Microbiology Lab Signature: Date/Time: Relationship to Patient: Witness Name/Signature: Date/Time: [facility]05-12-2024 Note ORIGINAL EXAMINATION: ONE SUPINE XRAY VIEW(S) OF THE ABDOMEN 11/28/2023 6:30 am COMPARISON: Abdomen x-ray and CT abdomen and pelvis on 11/27/2023 HISTORY: ORDERING SYSTEM PROVIDED HISTORY: Reason for Exam: SBO vs ileus FINDINGS: Nasogastric tube tip and side port are in the stomach. There are multiple dilated loops of small intestine without evidence of small intestinal wall thickening. The colon is not dilated and does not appear edematous. There is no sign of free intraperitoneal air or pneumatosis. No pathologic calcifications are detected. IMPRESSION: 1. Nasogastric tube is in satisfactory position. 2. Persistent small bowel dilatation, with pattern most consistent with small bowel obstruction. Interpreted by: David Kaplan MD Preliminary Report By: David Kaplan MD Electronically signed By David Kaplan MD Dictated Date: 11/28/2023 6:38:06 AM Prelim Date: 11/28/2023 6:39:49 AM Sign Date: 11/28/2023 6:39:49 AM Ordering Provider: [facility]05-12-2024 Note ORIGINAL EXAMINATION: ONE XRAY VIEW OF THE CHEST 11/28/2023 6:29 am COMPARISON: Chest x-ray on 07/20/2022. CT abdomen and pelvis on 11/27/2023. HISTORY: ORDERING SYSTEM PROVIDED HISTORY: Reason for Exam: pleural effusion f/u FINDINGS: Enteric tube tip and side port are in the stomach. Moderate-sized bilateral pleural effusions are present with adjacent basilar lung consolidation. There is mild degree of central vascular congestion. No pneumothorax is present. The heart size is normal. There is no acute skeletal abnormality. IMPRESSION: Moderate bilateral pleural effusions with adjacent basilar lung consolidation that may be atelectasis or pneumonia. Interpreted by: David Kaplan MD Preliminary Report By: David Kaplan MD Electronically signed By David Kaplan MD Dictated Date: 11/28/2023 6:36:13 AM Prelim Date: 11/28/2023 6:37:56 AM Sign Date: 11/28/2023 6:37:56 AM Ordering Provider: [facility]05-11-2024 Note ORIGINAL EXAMINATION: ONE SUPINE XRAY VIEW(S) OF THE ABDOMEN 11/27/2023 10:39 pm COMPARISON: Prior abdominal radiographs of the same date. HISTORY: ORDERING SYSTEM PROVIDED HISTORY: Reason for Exam: NGT placement FINDINGS: Enteric tube tip and side hole overlying the gastric bubble in appropriate position within the stomach. No free air seen beneath the level of the diaphragm. IMPRESSION: Enteric tube in appropriate position. Interpreted by: Ghanshyam Lazcano MD Preliminary Report By: Ghanshyam Lazcano MD Electronically signed By Ghanshyam Lazcano MD Dictated Date: 11/27/2023 10:49:10 PM Prelim Date: 11/27/2023 10:49:49 PM Sign Date: 11/27/2023 10:49:49 PM Ordering Provider: [facility]05-11-2024 Respiratory therapy Hospital Progress note Pt seen by Respiratory due to SOB complaint. Not due for another prn aerosol Informed pt that aerosol is a short term solution. 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 Will continue to advocate and educate pt for better breathing during stay Digitally Signed by Clara Ramachandran on 11/27/2023 10:06 PM [facility]05-11-2024 Note Date of Service 11/27/2023 Chief Complaint Pancreatitis Subjective 33-year-old female with past medical history significant for asthma, tobacco use. Patient presented to [facility] emergency department on 11/23/2023 with reports of lower abdominal pain that radiated to her back that started early in the morning. She had associated nausea and vomiting with this. She states that she did have an episode of binge drinking on 11/19/2023. In the emergency department she was afebrile, hypertensive with adequate oxygenation on room air. White bloodcell count 17.5, specific gravity greater than 1.030 on urinalysis. Potassium level 5.9, lipase greater than 375. CT abdomen and pelvis demonstrate findings compatible with acute, uncomplicated pancreatitis. Mucosal thickening and enhancement of the terminal ileum concerning for inflammatory bowel disease such as Crohn's. Possible hepatic cyst adjacent to the falciform ligament versus fatty infiltration. Patient was treated with IV analgesics and IV fluids. She was subsequently admitted. ?Patient was treated with aggressive IV fluids and opioid analgesics. She was trialed on clear liquids and did not tolerate this very well. In the middle night she was having nausea and vomiting. On 11/25 patient's abdomen was noted to be distended but still soft. She was having continued epigastric discomfort but positive bowel sounds. KUB was obtained and showed early/incomplete small bowel obstruction versus ileus. NG tube was placed and immediately returned 600 mL of brown liquid. Opioid analgesics were discontinued. She was started on Toradol for pain. She was quite anxious about having an NG tube placed. She was given Ativan. She was encouraged to ambulate however she was completely opposed to this. She was complaining about sore throat from NG tube and was repeatedly asking for this to be removed. Patient was educated extensively. Patient's family was at the bedside and withpatient's permission they were also updated. Patient's was repeatedly asking for Dilaudid. She wanted to be knocked out . Overnight patient continued to request opioid analgesics. She was given Ofirmev. She insisted that nursing take NG out. This morning repeat KUB showed persistent dilated loops of small bowel which appear marginally improved from the prior study. Low-grade SBO can not excluded. Overnight she remained afebrile, borderline tachycardia, normotensive with adequate oxygenation on room air. White blood cell count 6.9, 18% bands, potassium 3.1, magnesium 1.7. Objective Vitals and Measurements T: 37.5 C (Oral) TMIN: 36.5 C (Oral) TMAX: 37.5 C (Oral) HR: 106 RR: 20 BP: 101/77 SpO2: 97% WT: 79.9 kg Intake and Output 7AM Yesterday to 7AM Today Intake and Output (Last 24 hours) Intake Oral Intake 180.00 Output Urinary Catheter Output: 100.00 Gastric Tube Output: 100.00 Urine Count 2.00 Total Summary Total Intake 180.00 Total Output 200.00 Fluid Balance -20.00 Physical Exam GEN: Appears chronically ill CHEST: Normal S1 and S2. Rhythm is regular. Clear to auscultation, without rales, rhonchi, wheezing. ABD: Positive bowel sounds x 4 quads. Soft, tender epigastric region, abdominal distention. EXT: No significant deformity or joint abnormality. No edema. Peripheral pulses intact. NEURO: Sensation grossly intact SKIN: Skin color normal PSYCH: The mental examination revealed the patient was alert and oriented x 4, agitated, anxious. Weight Current Weight Dosing Weight: 70.9 kg (11/26/23) Current Weight: 79.9 kg (11/27/23) Dosing Weight: 70.9 kg (11/23/23) Current Weight: 81.1 kg (11/27/23) Medications Medications (17) Active Scheduled: (6) enoxaparin 40 mg/ 0.4mL syringe 40 mg 0.4 mL, Subcutaneous, q24h ketorolac 30 mg/mL (1 mL) vial 15 mg 0.5 mL, IV Push, q6h Nicoderm patch REMOVAL 1 EA, Miscellaneous, q24h nicotine 21 mg/24 hr ER patch 21 mg 1 patch(es), Transdermal, q24h pantoprazole 40 mg VIAL 40 mg, IV Push, qDayAC piperacillin-tazobactam vial 3.375 gram(s), IV Piggyback, q6h Continuous: (1) NS (0.9% nacl) 1,000 mL 1,000 mL, Intravenous, 50 mL/hr PRN: (10) acetaminophen 325 mg Tablet 650 mg 2 tab(s), Oral, q4h acetaminophen 325 mg Tablet 650 mg 2 tab(s), Oral, q4h albuterol - ipratropium 2.5 mg-0.5 mg/3 mL Inhal Britt UD 3 mL, Inhalation, q4hRT benzocaine-menthol (Cepacol Sore Throat) 15 mg-3.6mg lozenge 1 lozenge(s), Oral, q2h benzonatate 100 mg Capsule 100 mg 1 cap(s), Oral, TID calcium carbonate 500 mg Chewable 500 mg 1 tab(s), Chewed, TID guaifenesin 100 mg/5 mL Liquid SUGAR-FREE 120 mL 200 mg 10 mL, Oral, q4h magnesium hydroxide 8% Suspension 30 mL UD 30 mL, Oral, BID melatonin 3 mg tablet 6 mg 2 tab(s), Oral, qHS ondansetron 2 mg/ 1 mL 2 mL INJ 4 mg 2 mL, IV Push, q4h Lab Results 11/26 15:54 WBC: 9.0 Hgb: 11.6 L Hct: 33.6 L Platelet: 338 Glucose Level: 73 Sodium Level: 139 Potassium Level: 3.4 L BUN: 11 Creatinine Lvl (s): 0.56 11/26 05:22 WBC: 6.9 Hgb: 11.8 L Hct: 34.6 L Platelet: 324 Glucose Level: 75 Sodium Level: 140 Potassium Level: 3.1 L BUN: 13 Creatinine Lvl (s): 0.69 Imaging Results and Diagnostics CT Abd/Pelvis w/ IV Contrast Only Result Date: November 27, 2023 Verified By: BRENNON ACUÑA MD CLINICAL STATEMENT: IMPRESSION: 1. There is redemonstration of acute pancreatitis. There is no evidence ofpancreatic necrosis or abscess. There is no pseudocyst.2. There is interval development of mild moderate diffuse enlargement of thesmall bowel with wall thickening, compatible with diffuse ileus andenteritis, withtransition zone at the distal ileum, suggestive of an elementof partial small bowel obstruction.There is redemonstration of diffuse wall thickening of the terminal ileum anddistal ileum compatible with inflammatory versus infectious process.3. There is interval development of bilateral moderate pleural effusions, andbilateral lower lobe atelectasis. There is new moderate ascites. XR Abdomen AP Result Date: November 27, 2023 Verified By: WENCESLAO SUMMERS MD CLINICAL STATEMENT: IMPRESSION: Enteric tube at its expected location. No significant change in bowel gas pattern. XR Abdomen AP Result Date: November 27, 2023 Verified By: DAVID KAPLAN MD CLINICAL STATEMENT: IMPRESSION: Persistent dilated loops of small bowel which appear marginally improved fromthe prior study. Low-grade small bowel obstruction cannot be excluded. I have personally reviewed the images of this examination, and agree with theresident's findings and interpretation. XR Enteric Tube Placement Result Date: November 26, 2023 Verified By: ABDIRAHMAN SEXTON MD CLINICAL STATEMENT: IMPRESSION: Enteric tube is in the stomach. XR Abdomen AP Result Date: November 26, 2023 Verified By: ABDIRAHMAN SEXTON MD CLINICAL STATEMENT: IMPRESSION: Early/incomplete small bowel obstruction versus ileus. CT Abd/Pelvis w/ IV Contrast Only Result Date: November 23, 2023 Verified By: GHANSHYAM LAZCANO MD CLINICAL STATEMENT: IMPRESSION: 1. Findings compatible with acute uncomplicated pancreatitis. 2. Mucosal thickening andenhancement of the terminal ileum concerning forinflammatory bowel disease such as Crohn's. 3. Possible hepatic cyst adjacent to the falciform ligament versus fattyinfiltration. Consider outpatient ul trasound follow-up for furtherevaluation. 4. Heterogenous appearance of the liver as described above. Considercorrelation with LFTs. REPORT CORRECTION CORRECTION: Changed thickening enhancement of bowel to the terminal ileumrather than colon. Added details in relation to the liver as above.Pancreas findings are unchanged. TIME: 1420 I have personally reviewed the images of this examination and edited thepreliminary report. Assessment/Plan 1. Alcohol induced acute pancreatitis 2. Asthma 3. Tobacco use 4. Ileus 5. Pleural effusion 6. Enteritis Alcohol induced pancreatitis patient reports binge drinking every weekend. She used to drink daily but then switched to just weekends. Toradol 15 mg every 6 hours Asthma not in acute exacerbation. Tobacco use, nicotine patch. Ileus versus SBO Patient was experiencing abdominal distention, nausea, vomiting. X-ray abdomen obtained and showed early/incomplete small bowel obstruction versus ileus. NG tube was placed and patient had 600 mL of brown liquid returned. Opioid analgesics discontinued. Patient encouraged to ambulate in the hallway. She was very resistant to this. Overnight she was adamant that NG be removed. Repeat KUB Showed persistent dilated loops of small bowel which appear marginally improved. Low-grade bowel obstruction cannot be excluded. Patient was educated once again on the necessity of an NG tube but she stated that again she wanted to be knocked out . She was agreeable to having the NG tube placed if she got a dose of Ativan. She was given Ativan 0.5 mg IV and NG tube was reinserted. 10 minutes later she insisted to the nursing that it be removed. Patient's mother came in and talk to patient and to placing it once again. Patient did have some improvement in abdominal distention however her pain seemed out of proportion. On labs she had no leukocytosis however differential was notable for 18% bands. Potassium and magnesium were replaced. CT abdomen and pelvis was ordered due to concern for worsening SBO and bandemia. This shows redemonstration of acute pancreatitis without evidence of necrosis or abscess. Interval development of mild to moderate diffuse enlargement of the small bowel with wall thickening, compatible with diffuse ileus and enteritis with transition zone at the distal ileum, suggestive of an element of partial small bowel obstruction. There is redemonstration ofdiffuse wall thickening of the terminal ileum and distal ileum compatible with inflammatory versus i nfectious process. Pleural effusion interval development of bilateral moderate pleural effusions and bilateral lower lobe atelectasis. Patient refuses to use incentive spirometer. Oxygen saturations are 97 to 98% on room air. Will decrease IV fluids. Obtain chest x-ray tomorrow. Enteritis Patient had no leukocytosis but 18% bands. Given enteritis, will start Zosyn 3.375 every 6 hours. Hypokalemia KCl 40 mEq IV Hypomagnesemia magnesium sulfate 2 g IV DVT prophylaxis: Lovenox Code Status: Full code Plan of care discussed with patient. All questions answered. Patient verbalizes understanding is agreeable to plan of care. This dictation was performed using voice recognition software and may include grammatical and/or spelling errors. Anticipated Date of Discharge 11/30/2023 Time Spent 64 minutes Digitally Signed by PEE BUENROSTRO on 11/27/2023 06:31 PM [facility]05-11-2024 Note ORIGINAL EXAMINATION: CT OF THE ABDOMEN AND PELVIS WITH CONTRAST 11/27/2023 3:56 pm TECHNIQUE: CT of the abdomen and pelvis was performed with the administration of intravenous contrast. Multiplanar reformatted images are provided for review. Automated exposure control, iterative reconstruction, and/or weight based adjustment of the mA/kV was utilized to reduce the radiation dose to as low as reasonably achievable. COMPARISON: CT abdomen pelvis 11042 HISTORY: ORDERING SYSTEM PROVIDED HISTORY: Reason for Exam: SBO vs ileus, pain, abd distention FINDINGS: Lower Chest: There is interval development of bilateral moderate pleural effusions, and bilateral lower lobe atelectasis. Enteric feeding tube traverses the esophagus and terminates within the gastric lumen. Organs: The liver demonstrates no biliary duct dilatation or gross mass. There is diffuse hypoattenuation of the liver compatible with steatosis. Correlation with clinical findings may be useful. Prior cholecystectomy noted. There is increased mild diffuse enlargement of the pancreas, with mild increased parenchymal edema compatible with acute pancreatitis. There is no evidence of pancreatic necrosis or abscess formation. There is small volume of peripancreatic free fluid again noted, mildly decreased. There is no evidence of peripancreatic pseudocyst. Spleen is normal in size. Adrenal glands are normal in size. The kidneys enhance symmetrically without evidence of hydronephrosis. GI/Bowel: There is interval development of mild moderate diffuse enlargement of the small bowel with wall thickening, compatible with diffuse ileus and enteritis, with transition zone at the distal ileum, suggestive of an element of partial small bowel obstruction. There is redemonstration of diffuse wall thickening of the terminal ileum and distal ileum compatible with inflammatory versus infectious process. The colon is normal in caliber. Again noted appendicolith. There is moderate ascites within the abdomen and pelvis increased from prior study. Mastoid air cells are well-pneumatized and grossly clear. Mild mesenteric Pelvis: Urinary bladder is within normal limits. Uterus and ovaries are grossly normal in morphology. Peritoneum/Retroperitoneum: There are mildly enlarged retroperitoneal nodes which may be reactive. Bones/Soft Tissues: Osseous structures are intact. There is mild diffuse symmetric edema increased from prior study. IMPRESSION: 1. There is redemonstration of acute pancreatitis. There is no evidence of pancreatic necrosis or abscess. There is no pseudocyst. 2. There is interval development of mild moderate diffuse enlargement of the small bowel with wall thickening, compatible with diffuse ileus and enteritis, with transition zone at the distal ileum, suggestive of an element of partial small bowel obstruction. There is redemonstration of diffuse wall thickening of the terminal ileum and distal ileum compatible with inflammatory versus infectious process. 3. There is interval development of bilateral moderate pleural effusions, and bilateral lower lobe atelectasis. There is new moderate ascites. Interpreted by: Brennon Acuña Preliminary Report By: Brennon Acuña Electronically signed By Brennon Acuña Dictated Date: 11/27/2023 4:16:07 PM Prelim Date: 11/27/2023 4:30:28 PM Sign Date: 11/27/2023 4:30:28 PM Ordering Provider: [facility]05-11-2024 Note ORIGINAL EXAMINATION: ONE SUPINE XRAY VIEW(S) OF THE ABDOMEN 11/27/2023 1:46 pm COMPARISON: 11/27/2023, 11/26/2023, 11/23/2023 HISTORY: ORDERING SYSTEM PROVIDED HISTORY: Reason for Exam: s/p NG palcement FINDINGS: Enteric tube is seen coursing below the diaphragm with the tip at the level of the gastric body. The side port is below the diaphragm. There are multiple loops of dilated small bowel measuring up to 4.8 cm. Overall appearance is similar to the prior exam. Gas is seen within the colon. Cholecystectomy clips are seen in the right upper quadrant. IMPRESSION: Enteric tube at its expected location. No significant change in bowel gas pattern. Interpreted by: Wenceslao Summers MD Preliminary Report By: Wenceslao Summers MD Electronically signed By Wenceslao Summers MD Dictated Date: 11/27/2023 2:05:25 PM Prelim Date: 11/27/2023 2:08:06 PM Sign Date: 11/27/2023 2:08:06 PM [facility] Progress note mother states pt is SOB and has asthma and needs regular breathing treatments RT notified of pt request for breathing tx and breathing tx administered. Digitally Signed by CHIARA Bolden on 11/27/2023 01:03 PM [facility]05-11-2024 Nurse Progress note pt spoke with [employer]KER TECHNICIAN regarding reinsertion of NGT for tx of ileus and gut rest, pt agreeable, requestedAtivan IV prior to insertion and mdication was administered, 15min after Ativan administration, attempted to place NGT in R nare per pt request, she states her L nare is still sore from previous NGT.NGT heavily lubricated and attempted to insert NGT into R nare only advancing 1cm before pt became agitated and tearful stating that she could not do it and she just wants surgery and she just can't tolerate a NGT. pt directly asked if she was refusing placement of NGT and she stated yes. Mireille Buenrostro T[employer] AND DIE MAKER TECHNICIAN notified Digitally Signed by CHIARA Bolden on 11/27/2023 11:50 AM [facility]05-11-2024 Note ORIGINAL EXAMINATION: ONE SUPINE XRAY VIEW(S) OF THE ABDOMEN 11/27/2023 5:22 am COMPARISON: KUB 11/26/2023 HISTORY: ORDERING SYSTEM PROVIDED HISTORY: Reason for Exam: SBO vs ileus FINDINGS: Interval removal of the enteric tube. There remain dilated loops of small bowel, slightly improved from the prior study. Minimal air is seen within the rectum. Right upper quadrant surgical clips. No acute osseous abnormality. IMPRESSION: Persistent dilated loops of small bowel which appear marginally improved from the prior study. Low-grade small bowel obstruction cannot be excluded. I have personally reviewed the images of this examination, and agree with the resident's findings and interpretation. Interpreted by: David Kaplan MD Preliminary Report By: Gary Ortiz Electronically signed By David Kaplan MD Dictated Date: 11/27/2023 5:26:54 AM Prelim Date: 11/27/2023 5:30:26 AM Sign Date: 11/27/2023 5:49:58 AM Ordering Provider: PEE [facility]05-10-2024 Note Date of Service 11/26/2023 Chief Complaint Nausea and vomiting Subjective 33-year-old female with past medical history significant for asthma, tobacco use. Patient presented to [facility] emergency department on 11/23/2023 with reports of lower abdominal pain that radiated to her back that started early in the morning. She had associated nausea and vomiting with this. She states that she did have an episode of binge drinking on 11/19/2023. In the emergency department she was afebrile, hypertensive with adequate oxygenation on room air. White bloodcell count 17.5, specific gravity greater than 1.030 on urinalysis. Potassium level 5.9, lipase greater than 375. CT abdomen and pelvis demonstrate findings compatible with acute, uncomplicated pancreatitis. Mucosal thickening and enhancement of the terminal ileum concerning for inflammatory bowel disease such as Crohn's. Possible hepatic cyst adjacent to the falciform ligament versus fatty infiltration. Patient was treated with IV analgesics and IV fluids. She was subsequently admitted. ?Patient was treated with aggressive IV fluids and opioid analgesics. She was not tolerating oral intake. Overnight she was having nausea and vomiting. She was complaining of abdominal distention and liquid stools. No fever or chills. No chest pain or dyspnea. Objective Vitals and Measurements T: 36.5 C (Oral) TMIN: 36.5 C (Oral) TMAX: 37 C (Oral) HR: 113(Monitored) RR: 18 BP: 125/77 SpO2: 91% HT: 157.5 cm WT: 70.9 kg BMI: 28.58 Intake and Output 7AM Yesterday to 7AM Today Intake and Output (Last 24 hours) Intake Oral Intake 120.00 Output Stool Count 2.00 Urine Count 1.00 Emesis Count 1.00 Total Summary Total Intake 120.00 Total Output 0.00 Fluid Balance 120.00 Physical Exam GEN: Appears chronically ill CHEST: Normal S1 and S2. Rhythm is regular. Clear to auscultation, without rales, rhonchi, wheezing. ABD: Positive bowel sounds x 4 quads. Soft, tender epigastric region, abdominal distention. EXT: No significant deformity or joint abnormality. No edema. Peripheral pulses intact. NEURO: Sensation grossly intact SKIN: Skin color normal PSYCH: The mental examination revealed the patient was alert and oriented x 4, agitated, anxious. Weight Current Weight Dosing Weight: 70.9 kg (11/26/23) Current Weight: 76.4 kg (11/26/23) Dosing Weight: 70.9 kg (11/23/23) Current Weight: 74.5 kg (11/25/23) Medications Medications (17) Active Scheduled: (5) enoxaparin 40 mg/ 0.4mL syringe 40 mg 0.4 mL, Subcutaneous, q24h LORAZEPam 2 mg/mL 1 mL vial 1 mg 0.5 mL, IV Push, q6hr Nicoderm patch REMOVAL 1 EA, Miscellaneous, q24h nicotine 21 mg/24 hr ER patch 21 mg 1 patch(es), Transdermal, q24h pantoprazole 40 mg VIAL 40 mg, IV Push, qDayAC Continuous: (1) NS (0.9% nacl) 1,000 mL 1,000 mL, Intravenous, 100 mL/hr PRN: (11) acetaminophen 325 mg Tablet 650 mg 2 tab(s), Oral, q4h acetaminophen 325 mg Tablet 650 mg 2 tab(s), Oral, q4h albuterol - ipratropium 2.5 mg-0.5 mg/3 mL Inhal Britt UD 3 mL, Inhalation, q4hRT benzocaine-menthol (Cepacol Sore Throat) 15 mg-3.6mg lozenge 1 lozenge(s), Oral, q2h benzonatate 100 mg Capsule 100 mg 1 cap(s), Oral, TID calcium carbonate 500 mg Chewable 500 mg 1 tab(s), Chewed, TID guaifenesin 100 mg/5 mL Liquid SUGAR-FREE 120 mL 200 mg 10 mL, Oral, q4h ketorolac 30 mg/mL (1 mL) vial 15 mg 0.5 mL, IV Push, q6h magnesium hydroxide 8% Suspension 30 mL UD 30 mL, Oral, BID melatonin 3 mg tablet 6 mg 2 tab(s), Oral, qHS ondansetron 2 mg/ 1 mL 2 mL INJ 4 mg 2 mL, IV Push, q4h Lab Results 11/25 05:13 WBC: 3.4 L Hgb: 11.8 L Hct: 34.3 L Platelet: 251 Neutrophil %: 72.4 Glucose Level: 113 H Sodium Level: 139 Potassium Level: 3.7 BUN: 12 Creatinine Lvl (s): 0.57 Imaging Results and Diagnostics XR Enteric Tube Placement Result Date: November 26, 2023 Verified By: ABDIRAHMAN SEXTON MD CLINICAL STATEMENT: IMPRESSION: Enteric tube is in the stomach. XR Abdomen AP Result Date: November 26, 2023 Verified By: ABDIRAHMAN SEXTON MD CLINICAL STATEMENT: IMPRESSION: Early/incomplete small bowel obstruction versus ileus. CT Abd/Pelvis w/ IV Contrast Only Result Date: November 23, 2023 Verified By: GHANSHYAM LAZCANO MD CLINICAL STATEMENT: IMPRESSION: 1. Findings compatible with acute uncomplicated pancreatitis. 2. Mucosal thickening andenhancement of the terminal ileum concerning forinflammatory bowel disease such as Crohn's. 3. Possible hepatic cyst adjacent to the falciform ligament versus fattyinfiltration. Consider outpatient ul trasound follow-up for furtherevaluation. 4. Heterogenous appearance of the liver as described above. Considercorrelation with LFTs. REPORT CORRECTION CORRECTION: Changed thickening enhancement of bowel to the terminal ileumrather than colon. Added details in relation to the liver as above.Pancreas findings are unchanged. TIME: 1420 I have personally reviewed the images of this examination and edited thepreliminary report. EKG No qualifying data available. Assessment/Plan 1. Alcohol induced acute pancreatitis 2. Asthma 3. Tobacco use 4. Ileus Alcohol induced pancreatitis patient reports binge drinking every weekend. She used to drink daily but then switched to just weekends. Lipase decreased to 115. Normal saline at 100 mL/h. Sips and chips. Toradol 15 mg every 6 hours Asthma not in acute exacerbation. Tobacco use, nicotine patch. Ileus versus SBO Patient was experiencing abdominal distention, nausea, vomiting. X-ray abdomen obtained and showed early/incomplete small bowel obstruction versus ileus. NG tube was placed and patient had 600 mL of brown liquid returned. Opioid analgesics discontinued. Patient encouraged to ambulate in the hallway. She was very resistant to this. Repeat KUB in the morning. Add Cepacol lozenges due to discomfort from NG tube. DVT prophylaxis: Lovenox Code Status: Full code Plan of care discussed with patient. All questions answered. Patient verbalizes understanding is agreeable to plan of care. This dictation was performed using voice recognition software and may include grammatical and/or spelling errors. Anticipated Date of Discharge 11/29 Time Spent 52 minutes in discussion with interdisciplinary team, patient, family members. Digitally Signed by PEE BUENROSTRO on 11/26/2023 07:41 PM [facility]05-10-2024 Note ORIGINAL EXAMINATION: ONE SUPINE XRAY VIEW(S) OF THE ABDOMEN11/26/2023 11:58 am COMPARISON: Same day HISTORY: ORDERING SYSTEM PROVIDED HISTORY: Reason for Exam: NG PLACEMENT, FINDINGS: Enteric tube extends below diaphragm terminating in the region of the gastric body. Dilated bowel loops are again seen. IMPRESSION: Enteric tube is in the stomach. Interpreted by: Abdirahman Sexton MD Preliminary Report By: Abdirahman Sexton MD Electronically signed By Abdirahman Sexton MD Dictated Date: 11/26/2023 12:09:20 PM Prelim Date: 11/26/2023 12:09:46 PM Sign Date: 11/26/2023 12:09:46 PM [facility] Note ORIGINAL EXAMINATION: ONE SUPINE XRAY VIEW(S) OF THE ABDOMEN11/26/2023 10:11 am COMPARISON: CT 11/23/2023 HISTORY: ORDERING SYSTEM PROVIDED HISTORY: Reason for Exam: abd distention, pain, FINDINGS: There are multiple moderately dilated small bowel loops. Moderate gas in nondilated colon and in the stomach also. No supine evidence of free air. IMPRESSION: Early/incomplete small bowel obstruction versus ileus. Interpreted by: Abdirahman Sexton MD Preliminary Report By: Abdirahman Sexton MD Electronically signed By Abdirahman Sexton MD Dictated Date: 11/26/2023 10:17:14 AM Prelim Date: 11/26/2023 10:17:55 AM Sign Date: 11/26/2023 10:17:55 AM Ordering Provider: [facility]05-09-2024 Note Date of Service 11/25/2023 Chief Complaint Pancreatitis Subjective 33-year-old female with past medical history significant for asthma, tobacco use. Patient presented to [facility] emergency department on 11/23/2023 with reports of lower abdominal pain that radiated to her back that started early in the morning. She had associated nausea and vomiting with this. She states that she did have an episode of binge drinking on 11/19/2023. In the emergency department she was afebrile, hypertensive with adequate oxygenation on room air. White bloodcell count 17.5, specific gravity greater than 1.030 on urinalysis. Potassium level 5.9, lipase greater than 375. CT abdomen and pelvis demonstrate findings compatible with acute, uncomplicated pancreatitis. Mucosal thickening and enhancement of the terminal ileum concerning for inflammatory bowel disease such as Crohn's. Possible hepatic cyst adjacent to the falciform ligament versus fatty infiltration. Patient was treated with IV analgesics and IV fluids. She was subsequently admitted. ? patient has been treated with aggressive IV fluids. She was transition to clear liquid diet. She is tolerating this. On exam today patient admits continued epigastric pain and bloating. She has been ambulating in the hallway. Denies any fevers or chills. No chest pain or dyspnea. Objective Vitals and Measurements T: 37.1 C (Oral) TMIN: 36.7 C (Oral) TMAX: 37.7 C (Oral) HR: 108(Monitored) RR: 18 BP: 113/74 SpO2:93% WT: 74.5 kg Intake and Output 7AM Yesterday to 7AM Today Intake and Output (Last 24 hours) Intake Oral Intake 480.00 Output Urine Count 2.00 Emesis Count 1.00 Total Summary Total Intake 480.00 Total Output 0.00 Fluid Balance 480.00 Physical Exam GEN: Appears chronically ill CHEST: Normal S1 and S2. Rhythm is regular. Clear to auscultation, without rales, rhonchi, wheezing. ABD: Positive bowel sounds x 4 quads. Soft, tender epigastric region. EXT: No significant deformity or joint abnormality. No edema. Peripheral pulses intact. NEURO: Sensation grossly intact SKIN: Skin color normal PSYCH: The mental examination revealed the patient was alert and oriented x 4 Weight Current Weight Dosing Weight: 70.9 kg (11/23/23) Current Weight: 74.5 kg (11/25/23) Dosing Weight: 70.9 kg (11/23/23) Current Weight: 71.8 kg (11/24/23) Medications Medications (17) Active Scheduled: (4) enoxaparin 40 mg/ 0.4mL syringe 40 mg 0.4 mL, Subcutaneous, q24h Nicoderm patch REMOVAL 1 EA, Miscellaneous, q24h nicotine 21 mg/24 hr ER patch 21 mg 1 patch(es), Transdermal, q24h pantoprazole 40 mg VIAL 40 mg, IV Push, qDayAC Continuous: (1) NS (0.9% nacl) 1000 mL 1,000 mL, Intravenous, 250 mL/hr PRN: (12) acetaminophen 325 mg Tablet 650 mg 2 tab(s), Oral, q4h acetaminophen 325 mg Tablet 650 mg 2 tab(s), Oral, q4h albuterol - ipratropium 2.5 mg-0.5 mg/3 mL Inhal Britt UD 3 mL, Inhalation, q4hRT benzonatate 100 mg Capsule 100 mg 1 cap(s), Oral, TID calcium carbonate 500 mg Chewable 500 mg 1 tab(s), Chewed, TID guaifenesin 100 mg/5 mL Liquid SUGAR-FREE 120 mL 200 mg 10 mL, Oral, q4h hydromorphone 1 mg/mL (1mL) INJ 1 mg 1 mL, IV Push, q3h ketorolac 30 mg/mL (1 mL) vial 15 mg 0.5 mL, IV Push, q6h LORAZEPam 0.5 mg tablet 0.5 mg 1 tab(s), Oral, q4h magnesium hydroxide 8% Suspension 30 mL UD 30 mL, Oral, BID melatonin 3 mg tablet 6 mg 2 tab(s), Oral, qHS ondansetron 2 mg/ 1 mL 2 mL INJ 4 mg 2 mL, IV Push, q4h Lab Results 11/24 05:09 WBC: 9.5 Hgb: 13.9 Hct: 40.8 Platelet: 311 Neutrophil %: 83.2 H Glucose Level: 109 H Sodium Level: 138 Potassium Level: 3.7 BUN: 12 Creatinine Lvl (s): 0.70 11/23 05:16 WBC: 14.3 H Hgb: 13.5 Hct: 39.7 Platelet: 286 Neutrophil %: 87.9 H Glucose Level: 107 H Sodium Level: 138 Potassium Level: 3.9 BUN: 11 Creatinine Lvl (s): 0.68 Imaging Results and Diagnostics CT Abd/Pelvis w/ IV Contrast Only Result Date: November 23, 2023 Verified By: GHANSHYAM LAZCANO MD CLINICAL STATEMENT: IMPRESSION: 1. Findings compatible with acute uncomplicated pancreatitis. 2. Mucosal thickening andenhancement of the terminal ileum concerning forinflammatory bowel disease such as Crohn's. 3. Possible hepatic cyst adjacent to the falciform ligament versus fattyinfiltration. Consider outpatient ul trasound follow-up for furtherevaluation. 4. Heterogenous appearance of the liver as described above. Considercorrelation with LFTs. REPORT CORRECTION CORRECTION: Changed thickening enhancement of bowel to the terminal ileumrather than colon. Added details in relation to the liver as above.Pancreas findings are unchanged. TIME: 1420 I have personally reviewed the images of this examination and edited thepreliminary report. Assessment/Plan 1. Alcohol induced acute pancreatitis 2. Asthma 3. Tobacco use Alcohol induced pancreatitis patient reports binge drinking every weekend. She used to drink daily but then switched to just weekends. Lipase remains elevated greater than 375. Normal saline at 250 mL/h. Clear liquids. Continue as needed pain control. Repeat lipase level tomorrow morning. Asthma not in acute exacerbation. Tobacco use, nicotine patch. DVT prophylaxis: Lovenox Code Status: Full code Plan of care discussed with patient. All questions answered. Patient verbalizes understanding is agreeable to plan of care. This dictation was performed using voice recognition software and may include grammatical and/or spelling errors. Anticipated Date of Discharge 11/26 Time Spent 43 minutes Digitally Signed by PEE BUENROSTRO on 11/25/2023 04:20 PM [facility]05-08-2024 Nurse Progress note pt c/o feeling like she's retaining urine. post-void bladder scan done and results 106mL. Pt instructed to continue ambulation as able and change positions while on the toilet to help fully void. Digitally Signed by Florinda Mehta RN on 11/24/2023 10:09 AM [facility]05-07-2024 Note Date of Service 11/23/2023 Chief Complaint Patient complains of lower abdominal pain that radiates into her back that started about 0430 this AM. History of Present Illness Patient is a 33-year-old female, who has no primary care provider and no past medical history, presents to [facility] emergency department with the chief complaint of RUQ and epigastric pain that started about 0430 this morning. Patient starts that she has left flank pain but also feels like she has pain in the middle of her abdomen. She has had some nausea and vomiting with this. She reports that she has never had anything similar in the past. Patient reports that she was binge drinking alcohol on Wednesday night. She never directly answers how often she drinks alcohol. She denies any fever, chills, cough, shortness of breath, chest pain, diarrhea or dysuria. In the emergency department, CT of the abdomen/pelvis revealed findings compatible with acute uncomplicated pancreatitis, thickening enhancement of bowel to the terminal ileum concerning for inflammatory bowel disease such as Crohn's, possible hepatic cyst adjacent to the falciform ligament versus fatty infiltration. White blood cell count 17.5. CBC otherwise unremarkable. BMP significant for glucose 146 and potassium 5.9. Lipase greater than 375. Patient was administered 1 liter of NS, 4 mg zofran IV, 4 mg morphine IV, 1 mg dilaudid IV and 15 mg toradol IV in the ED. The case was discussed with the ED physician who recommended admission for treatment of acute pancreatitis. Patient will be t ransferred to medical surgical unit for further evaluation and treatment. We will start NS @ 125 cc/hr. We will keep patient NPO except for sips and chips. Continue IV and PO pain medication and antiemetics. Check lipid profile in the am. Repeat CBC, CMP, magnesium level and lipase level in the am. Patient seen and evaluated in the ED while resting on the cot. Discussed plan of care with patient and she was agreeable to proceed. She is complaining of severe epigastric and RUQ pain. She states the pain medication she has been getting does not last very long. Will add oral pain medication as itmay last longer for her. Physical exam unremarkable except for severe tenderness to light palpationin the upper quadrants. All questions answered. Review of Systems Review of Systems: Reviewed in detail, including general health, HEENT, cardiovascular, respiratory, gastrointestinal, genitourinary, endocrine, musculoskeletal, neurologic, vascular, skin, and psychiatric. All are negative except for those listed in the History of Present Illness. Physical Exam Vitals and Measurements T: 36.9 C (Oral) HR: 66 RR: 18 BP: 147/84 SpO2: 98% No qualifying data available. General: No acute distress. Patient is alert and appropriate. Skin: No rash. Skin is warm, dry and intact. HEENT: Head is normocephalic, atraumatic. Pupils are equal, round and reactive. Neck: Supple. No lymphadenopathy, thyromegaly. Lungs: Bilaterally clear but diminished without crepitation or wheeze. Unlabored. Heart: Heart is regular rhythm, S1, S2. No murmurs, gallops or rubs. Abdomen: Abdomen is soft, tender to light palpation in RUQ and epigastric region. Bowels sounds present in all quadrants. Extremities: No clubbing, cyanosis, or edema. Peripheral pulses palpable. No calf tenderness. Neurological: Patient is awake and alert to person, place and time. Following simple commands, moving all extremities. Lab Results 11/22 11:02 Glucose Level: 146 H Sodium Level: 140 Potassium Level: 5.9 H BUN: 9 Creatinine Lvl (s): 0.97 11/22 10:16 WBC: 17.5 H Hgb: 14.0 Hct: 40.5 Platelet: 355 Neutrophil %: 89.8 H Imaging Results and Diagnostics CT Abd/Pelvis w/ IV Contrast Only Result Date: November 23, 2023 Verified By: GHANSHYAM LAZCANO MD CLINICAL STATEMENT: IMPRESSION: 1. Findings compatible with acute uncomplicated pancreatitis. 2. Mucosal thickening andenhancement of the terminal ileum concerning for inflammatory bowel disease such as Crohn's. 3. Possible hepatic cyst adjacent to the falciform ligament versus fatty infiltration. Consider outpatientultrasound follow-up for further evaluation. 4. Heterogenous appearance of the liver as described above. Consider correlation with LFTs. REPORT CORRECTION CORRECTION: Changed thickening enhancement of bowel to the terminal ileum rather than colon. Added details in relation to the liver as above. Pancreas findings are unchanged. TIME: 1420 I have personally reviewed the images of this examination and edited the preliminary report. Assessment/Plan 1. Alcohol induced acute pancreatitis Acute, new onset. Patient reported binge-drinking alcohol on Wednesday. She would not answer how oftenshe drinks alcohol. Start NS @ 125cc/hr. Keep NPO except for sips and chips. Continue dilaudid 1 mgIV PRN for pain rating 7-10. Start Toradol 15 mg IV q6 hours PRN for breakthrough pain. Start Percocet 1 tab PO q6 hours PRN for pain rating 4-6. Continue Zofran PRN for nausea. Check lipid profile in am. Repeat CBC, CMP, magnesium level and lipase in the am. 2. Asthma Chronic, not in exacerbation. Start duoneb as needed for shortness of breath/wheezing. 3. Tobacco use Chronic. Encouraged cessation. May have nicotine patch daily. DVT prophylaxis with Lovenox sc. Code status: Full Code. Labs, diagnostic test and progress notes reviewed as noted in HPI. Plan of care discussed with patient. All questions answered. Patient verbalizes understanding and is agreeable with plan of care. This case was discussed with collaborating physician, Dr. Georgina Molina. 75 minutes spent reviewing past diagnostic tests, reviewing lab results, vital sign trends, medicalhistory, reviewing medications and ordering home medications, examining patient, collaborating withphysician, and documenting in chart. Problem List/Past Medical History Ongoing Acute URI Asthma Back pain with radiation Constipation in female Encounter by telehealth for suspected COVID-19 Erythema nodosum No-show for appointment Pelvic pain Seasonal allergies URI with cough and congestion Historical Rash Procedure/Surgical History None delivery Medications Home Medications (2) Active albuterol MDI (90 mcg/inh) CFC free inhalation aerosol 2 puff(s), PRN, Inhalation, q4h albuterol MDI (90 mcg/inh) CFC free inhalation aerosol 2 puff(s), Inhalation, q6h Allergies codeine (Nausea) Social History Smoking Status - 10/21/2017 Current every day smoker Alcohol - Medium Risk, 10/17/2018 Use: Past., 02/01/2019 Home/Environment OTher risks in environment: daily smoke exposure., 02/08/2019 Nutrition/Health Caffeine intake amount: 1-2 servings daily., 02/08/2019 Substance Abuse - Denies Substance Abuse, 10/21/2017 Use: Never., 02/01/2019 Tobacco - High Risk, 10/17/2018 Nicotine Use: Former smoker, quit more than 30 days ago., 09/04/2021 Family History Heart attack: Grandparent. Immunizations tetanus/diphth/pertuss (Tdap) adult/adol: 0.5 mL (09/29/21) Code Status Code Status - Ordered -- 11/23/23 15:32:00 EDT, Full Code, Constant Order Digitally Signed by SAMM DE LA CRUZ APRN-BUDDY on 11/23/2023 05:32 PM [facility]05-07-2024 Evaluation + Plan noteExtracted from: Title:History and Physical Author:SAMM DE LA CRUZ APRN-SOCIAL MEDIA PROJECT MANAGER Date:11/23/23 1. Alcohol induced acute fay creatitis Acute, new onset. Patient reported binge-drinking alcohol on Wednesday. She would not answer how often she drinks alcohol. Start NS @ 125cc/hr. Keep NPO except for sips and chips. Continue dilaudid 1 mg IV PRN for pain rating 7-10. Start Toradol 15 mg IV q6 hours PRN for breakthrough pain. Start Percocet 1 tab PO q6 hours PRN for pain rating 4-6. Continue Zofran PRN for nausea. Check lipid profile in am. Repeat CBC, CMP, magnesium level and lipase in the am. 2. Asthma Chronic, not in exacerbation. Start duoneb as needed for shortness of breath/wheezing. 3. Tobacco use Chronic. Encouraged cessation. May have nicotine patch daily. DVT prophylaxis with Lovenox sc. Code status: Full Code. Labs, diagnostic test and progress notes reviewed as noted in HPI. Plan of care discussed with patient. All questions answered. Patient verbalizes understanding and is agreeable with plan of care. This case was discussed with collaborating physician, Dr. Georgina Molina. 75 minutes spent reviewing past diagnostic tests, reviewing lab results, vital sign trends, medical history, reviewing medications and ordering home medications, examining patient, collaborating with physician, and documenting in chart. [facility] 05-07-2024 Note ORIGINAL EXAMINATION: CT OF THE ABDOMEN AND PELVIS WITH CONTRAST11/23/2023 1:24 pm TECHNIQUE: CT of the abdomen and pelvis was performed with the administration of intravenous contrast. Multiplanar reformatted images are provided for review. Automated exposure control, iterative reconstruction, and/or weight based adjustment of the mA/kV was utilized to reduce the radiation dose to as low as reasonably achievable. COMPARISON: None HISTORY: ORDERING SYSTEM PROVIDED HISTORY: Reason for Exam: pain. Upper abdominal pain since this morning. FINDINGS: Limited images of the lower thorax are noncontributory. A 1.1 cm hypodense lesion is seen within the right hepatic lobe and possibly represents a hepatic cyst. Heterogenous enhancement of the liver may be due to areas of fatty infiltration, LEXIS, or possible developing fibrosis. There is mild peripancreatic fat stranding and edema with fluid tracking along the anterior pararenal space. Cholecystectomy with surgical clips. The spleen and bilateral adrenal glands are unremarkable. The kidneys are unremarkable. The urinary bladder and uterus are unremarkable. No pathologically enlarged inguinal or pelvic lymph nodes. There is wall thickening enhancement, and adjacent fat stranding to the terminal ileum. The nondistended colon otherwise is normal in appearance. The appendix is unremarkable. Numerous prominent mesenteric lymph nodes with the largest measuring up to 9 mm (series 3, image 79). No free intraperitoneal air. No acute osseous findings. The aorta is normal in caliber. There is no visible fracture or aggressive osseous lesion. IMPRESSION: 1. Findings compatible with acute uncomplicated pancreatitis. 2. Mucosal thickening and enhancement of the terminal ileum concerning for inflammatory bowel disease such as Crohn's. 3. Possible hepatic cyst adjacent to the falciform ligament versus fatty infiltration. Consider outpatient ultrasound follow-up for further evaluation. 4. Heterogenous appearance of the liver as described above. Consider correlation with LFTs. REPORT CORRECTION CORRECTION: Changed thickening enhancement of bowel to the terminal ileum rather than colon. Added details in relation to the liver as above. Pancreas findings are unchanged. TIME: 1420 I have personally reviewed the images of this examination and edited the preliminary report. Interpreted by: Ghanshyam Lazcano MD Preliminary Report By: Roberto Priest Electronically signed By Ghanshyam Lazcano MD Dictated Date: 11/23/2023 1:25:37 PM Prelim Date: 11/23/2023 2:21:19 PM Sign Date: 11/23/2023 2:21:19 PM [facility] Discharge instructions Follow Up Care 11/23/2023 09:34:49 With:Follow up with primary care provider Address:Unknown When: Unknown [facility] 03-14-2022 Hospital Discharge instructions Patient Education 09/29/2021 21:54:18 Foot Sprain Foot Sprain A sprain is a stretching or tearing of the ligaments that hold a joint together. There are usually no broken bones. Sprains generally take from 3 to 6 weeks to heal. A sprain may be treated with a splint, walking cast, or special boot. Mild sprains may not need any additional support. Home care The following guidelines will help you care for your injury at home: Keep your leg elevated when sitting or lying down. This is very important during the first 48 hoursto reduce swelling. Stay off the injured foot as much as possible until you can walk on it without pain. If needed, you may use crutches during the first week for this purpose. Crutches can be rentedat many pharmacies or surgical/orthopedic supply stores. You may be given a cast shoe to wear to prevent movement in your foot. If not, you can use a sandalor any shoe that does not put pressure on the injured area until the swelling and pain go away. If using a sandal, be careful not to hit your foot against anything, since another injury could make the sprain worse. Apply an ice pack over the injured area for 15 to 20 minutes every 3 to 6 hours. You should do thisfor the first 24 to 48 hours. You can make an ice pack by filling a plastic bag that seals at the top with ice cubes and then wrapping it with a thin towel. Continue to use ice packs for relief of pain and swelling as needed. As the ice melts, try not to get the wrap, splint, or cast wet. After 48 hours, apply heat from a warm shower or bath for 20 minutes several times daily. Alternating ice andheat may also be helpful. You may use xtji-agj-lyemetb pain medicine to control pain, unless another medicine was prescribed.If you have chronic liver or kidney disease or ever had a stomach ulcer or gastrointestinal bleeding, talk with your healthcare provider before using these medicines. If you were given a splint or cast, keep it dry. Bathe with your splint or cast well out of the water, protected with 2 large plastic bags, sealed with tape or rubber-bands at the top end. If a fiberglass splint or cast gets wet, you can dry it with a history department chair on cool setting. You may return to sports after healing, when you can run without pain. Follow-up care Follow up with your healthcare provider as directed. Sometimes fractures don t show up on the firstX-ray. Bruises and sprains can sometimes hurt as much as a fracture. These injuries can take time to heal completely. If your symptoms don t improve or they get worse, talk with your healthcare provider. You may need a repeat X-ray or other tests. When to seek medical advice Call your healthcare provider right away if any of these occur: The plaster cast or splint gets wet or soft The fiberglass cast or splint gets wet and does not dry for 24 hours Pain or swelling increases, or redness appears A bad odor comes from within the cast Fever of 100.4 F (38 C) or above lasting for 24 to 48 hours, or as advised Chills Toes on the injured foot become cold, blue, numb, or tingly [id number] [employer]. [address] [place] [address]. All rights reserved. This information is not intended as a substitute for professional medical care. Always follow yourhealthcare professional's instructions. 09/29/2021 21:54:18 Foot Contusion Foot Contusion You have a contusion. This is also called a bruise. There is swelling and some bleeding under the skin, but no broken bones. This injury generally takes a few days to a few weeks to heal. During thattime, the bruise will typically change in color from reddish, to purple-blue, to greenish-yellow, then to yellow-brown. Home care Elevate the foot to reduce pain and swelling. As much as possible, sit or lie down with the foot raised about the level of your heart. This is especially important during the first 48 hours. Ice the foot to help reduce pain and swelling. Wrap a cold source (ice pack or ice cubes in a plastic bag) in a thin towel. Apply to the bruised area for 20 minutes every 1 to 2 hours the first day. Continue this 3 to 4 times a day until the pain and swelling goes away. Unless another medicine was prescribed, you can take acetaminophen, ibuprofen, or naproxen to control pain. (If you have chronic liver or kidney disease or ever had a stomach ulcer or gastrointestinal bleeding, talk with your healthcare provider before using these medicines.) Follow up Follow up with your healthcare provider or our staff as advised. Call if you are not improving within 1 to 2 weeks. When to seek medical advice Call your healthcare provider right away if you have any of the following: Increased pain or swelling Foot or leg becomes cold, blue, numb or tingly Signs of infection: Warmth, drainage, or increased redness or pain around the bruise Inability to move the injured foot Frequent bruising for unknown reasons [id number] [employer]. [address] [place] [address]. All rights reserved. This information is not intended as a substitute for professional medical care. Always follow yourhealthcare professional's instructions. Follow Up Care 09/29/2021 20:31:22 With:VICTORINO JONES Address: [address] [place] [address] [place] [phone] Business (1) When:3-5 days Comments:Use postop shoe for comfort, elevate place ice over the foot. You may use crutches for comfort, however may attempt to weight-bear as tolerated. If still experiencing severe pain or any worsening symptoms for sure to be reevaluated. [facility] 02-14-2022 Evaluation + Plan note Future Scheduled Tests Laboratory* Respiratory ID Panel with COVID-19 by PCR 09/01/21 * C-Reactive Protein 09/04/21 * D-Dimer 09/04/21 * Bordetella Pertussis PCR 09/01/21 * Complete Blood Count 09/04/21 * Complete Metabolic Panel 09/04/21 * [facility] Send out (Blood Specimens) 09/01/21 Radiology* XR Chest 2 Views (PA & Lateral) 09/04/21 * XR Chest 2 Views (PA & Lateral) 09/05/21 [facility] 12-23-2021 Hospital Discharge instructions Patient Education 07/10/2021 18:14:34 CONTUSION, Upper Extremity Contusion:Upper Extremity You have a contusion of your upper extremity (arm, wrist, hand or fingers). This causes local pain,swelling and sometimes bruising. There are no broken bones. This injury takes a few days to a few weeks to heal. A sling may be provided for comfort and arm support. Home Care: 1) Keep your arm elevated to reduce pain and swelling. This is very important during the first 48 hours. 2) Apply an ice pack (ice cubes in a plastic bag, wrapped in a towel) over the injured area for 20 minutes every 1-2 hours the first day for pain relief. Continue this 3-4 times a day until the pain and swelling goes away. 3) You may use acetaminophen (Tylenol) or ibuprofen (Motrin, Advil) to control pain, unless anotherpain medicine was prescribed. [ NOTE : If you have chronic liver or kidney disease or ever had a stomach ulcer or GI bleeding, talk with your doctor before using these medicines.] 4) If a sling was provided, you may remove it to shower or bathe. Do not wear it for more than one week or it may cause joint stiffness. Follow Up with your doctor or this facility if you are not starting to improve within the next THREE days. [NOTE: If X-rays were taken, they will be reviewed by a radiologist. You will be notified of any new findings that may affect your care.] Get Prompt Medical Attention if any of the following occur: -- Pain or swelling increases -- Redness, warmth or drainage -- Hand or fingers becomes cold, blue, numb or tingly [id number] [place] [address]. All rights reserved. This information is not intended as a substitute for professional medical care. Always follow yourhealthcare professional's instructions. Follow Up Care 07/10/2021 17:16:07 With:VICTORINO JONES DO Address: When:5 to 7 days [facility] Evaluation + Plan note No data available for this section [facility] Evaluation + Plan note Future Appointments Appointment Date:01/07/2024 01:30:00 PM Scheduled Provider:BERNARDA LEONARDO Location:[facility] Appointment Type:PC OV Future Scheduled Tests Laboratory* Basic Metabolic Panel 12/08/23 * Lipase Level 12/08/23 * Magnesium Level 12/08/23 [facility] Evaluation + Plan note Future Appointments Appointment Date:04/06/2024 02:30:00 PM Scheduled Provider:BERNARDA LEONARDO Location:[facility] Appointment Type:PC OV Future Scheduled Tests Radiology* NM Gastric Emptying Study 01/10/24 [facility] Evaluation + Plan note Future Appointments Appointment Date:04/06/2024 02:30:00 PM Scheduled Provider:BERNARDA LEONARDO Location:[facility] Appointment Type:PC OV Diagnostic Tests Pending * Basic Metabolic Panel 03/23/24 * Troponin I High Sensitivity 03/23/24 Future Scheduled Tests Radiology* NM Gastric Emptying Study 01/10/24 [facility] Evaluation + Plan note Future Appointments Appointment Date:04/06/2024 02:30:00 PM Scheduled Provider:BERNARDA LEONARDO Location:[facility] Appointment Type:PC OV Diagnostic Tests Pending * Urine Culture 04/05/24 Future Scheduled Tests Radiology* NM Gastric Emptying Study 01/10/24 [facility] Evaluation note* Diagnosis Acute pancreatitis, unspecified complication status, unspecified pancreatitis type- Primary Acute pancreatitis, unspecified complication status, unspecified pancreatitis type Pleural effusion associated with pancreatitis Other specified forms of effusion, except tuberculous Atelectasis of left lung Pulmonary collapse [facility] No data available for this section [facility] Hospital Discharge instructions* Attachments The following attachments cannot be sent through Care Everywhere. * Pancreatitis Discharge Instructions (Syriac[facility] No data available for this section [facility] Summary Purpose Family History No Family History Records Found Advance Directives No Advanced Directives Records Found Date Activated Date Inactivated Comments 03/04/2024 7:54 PM Date Activated Date Inactivated Comments 03/04/2024 7:54 PM 03/08/2024 4:47 PM Additional Source Comments Patient Care team informatio n (unrecognized section and content) Plant Ecologist Relationship Specialty Start Date End Date Victorino Jones DO [address] [place] [address] PCP - General Family Medicine 03/04/24 Jose Mcghee [facility] Sowmya Walsh, [address] [address] Gastroenterology 03/04/24 Plant Ecologist Relationship Specialty Start Date End Date Victorino Jones DO [address] [place] [id number] PCP - General Family Medicine 03/04/24 Jose Mcghee [facility] Sowmya [address] [id number] Gastroenterology 03/04/24 Plant Ecologist Relationship Specialty Start Date End Date Victorino Jones DO [address] [place] [address] PCP - General Family Medicine 03/04/24 Jose Mcghee [facility] Sowmya Walsh, [address] [address] Gastroenterology 03/04/24 Plant Ecologist Relationship Specialty Start Date End Date Victorino Jones DO [address] [facility] [place] [address] PCP - General Family Medicine 03/04/24 Jose Mcghee [address] Sowmya Walsh, [address] [address] Gastroenterology 03/04/24 Plant Ecologist Relationship Specialty Start Date End Date Victorino Jones DO [address] [place] [address] PCP - General Family Medicine 03/04/24 Jose Mcghee [address] Sowmya Walsh, [address] [phone] Gastroenterology 03/04/24 Plant Ecologist Relationship Specialty Start Date End Date Victorino Jones DO [address] [place] [address] PCP - General Family Medicine 03/04/24 Jose Mcghee [facility] Sowmya Walsh, [address] [address] Gastroenterology 03/04/24 Plant Ecologist Relationship Specialty Start Date End Date Victorino Jones DO [address] [place] [address] PCP - General Family Medicine 03/04/24 Jose Mcghee [address], [address] [place] [address] Gastroenterology 03/04/24 Plant Ecologist Relationship Specialty Start Date End Date Victorino Jones DO [address] [facility] [place] [address] PCP - General Family Medicine 03/04/24 Jose Mcghee [address] Sowmya Alexander, [facility] [address] [place] [address] Gastroenterology 03/04/24 Plant Ecologist Relationship Specialty Start Date End Date Victorino Jones DO [address] [facility] [place] [address] PCP - General Family Medicine 03/04/24 Jose Mcghee [address] Sowmya Alexander, [address] [phone] Gastroenterology 03/04/24 INFORMATION SOURCE (unrecogn ized section and content) DATE CREATED AUTHOR 01/12/2024 [facility] DATE CREATED AUTHOR AUTHOR'S ORGANIZ ATION 03/25/2024 [facility] DATE CREATED AUTHOR AUTHOR'S ORGANIZ ATION 04/06/2024 [facility] DATE CREATED AUTHOR AUTHOR'S ORGANIZ ATION 04/28/2024 [facility] Reason for Visit (unrecogniz ed section and content) Reason Comments Abdominal Pain RUQ abd pain since m ay 5 admission for pancreatitis Specialty Diagnoses / Procedures Referred By Contxin t Referred To Contact Diagnoses Acute pancreatitis, unspecified complication status, unspecified pancreatitis type Procedures . Reji Thompson, DO [address] [place] [address] [facility] [address] [place] [address] Referral ID Status Reason Start Date Expiration Date Visits Re quested Visits Authorized [id number] 1 1 Reason Onset Date Comments Care Coordination 03/06/2024 Appointment Request 03/06/2024 Scheduled Active and Recently Administ ered Medications (unrecognized section and content) Medication Order 03/06/2024 03/07/2024 03/08/2024 acetaminophen (Tylenol) tablet 1,000 mg(Linked Group 1) 1,000 mg, Oral, Every 8 hours, First dose (after last modification) on Wed03/05/24 at 0015, Maximum dose of acetaminophen is 4000 mg from all sources in 24 hours. 0832 (Given - Provider: Michelle Garcia RN)1654 (Given - Provider: Michelle Garcia RN)2345 (Given - Provider: Kae Doty RN) 0815 (Not Given - Provider: Michelle Garcia RN - Reason: Patient/family refused)1818 (Given - Provider: Michelle Garcia RN - Comment: Off schedule) 0219 (Given - Provider: Gretel De La Torre RN)0935 (Given - Provider: Radha Fermin, CHIARA) enoxaparin (Lovenox) syringe 40 mg 40 mg, SubCUTAneous, Every 24 hours scheduled (Daily), First dose on Wed03/04/24 at 2000, Indication of Use: Prophylaxis-DVT/PE, Indications: Prophylaxis of Venous Thromboembolism 0844 (Given - Provider: Michelle Garcia RN) 1001 (Given - Provider: Michelle Garcia RN) 0936 (Given - Provider: Radha Fermin, RN) folic acid (Folvite) tablet 1 mg 1 mg, Oral, Daily, First dose on Wed03/04/24 at 1625 0832 (Given - Provider: Michelle Garcia RN) 0957 (Given - Provider: Michelle Garcia RN) 0935 (Given - Provider: Radha Fermin, CHIARA) HYDROmorphone (Dilaudid) injection 0.25 mg (COMPLETED) 0.25 mg, IntraVENous, Once, On Wed03/07/24 at 1230, For 1 dose, If oral and IV narcotics ordered, use oral first and only use IV if oral is ineffective or cannot take oral. Do Not give oral and IV within 1 hour of each other unless specifically ordered. 1230 (Given - Provider: Michelle Garcia RN) ipratropium-albuterol (Duo-Neb) 0.5-2.5 mg/3 mL nebulizer solution 3 mL (CANCELED) 3 mL, Nebulization, 2 times daily, First dose on Wed03/06/24 at 0915 1016 (Given - Provider: Shyam Daniel, STRUCTURAL FITTER)1630 (Not Given - Provider: Shyam Daniel RRT - Reason: Patient not available - Comment: x3.) 0916 (Not Given - Provider: Erin Blount RCP - Reason: Patient not available) ipratropium-albuterol (Duo-Neb) 0.5-2.5 mg/3 mL nebulizer solution 3 mL 3 mL, Nebulization, Every 12 hours scheduled (2 times per day), First dose (after last modification) on Wed03/07/24 at 2100 2100 (Not Given - Provider: Blanca Gibson RRT - Reason: Patient/family refused - Comment: patient refused) 0815 (Given - Provider: Ed Felipe, INSPECTOR SUBASSEMBLIES) magnesium sulfate IVPB 4,000 mg (COMPLETED) 4,000 mg, IntraVENous, at 25 mL/hr, Administer over 4 Hours, Once, On Wed03/06/24 at 0700, For 1 dose, Recommended infusion rate not to exceed 1,000 mg (milligrams) per hour. 0840 (New Bag - Provider: Michelle Garcia RN)1200 (Rate/Dose Verify - Provider: Michelle Garcia RN)1240 (Stopped - Provider: Diane Perales RN) nicotine (Nicoderm, Step 1) 21 MG/24HR patch 1 patch(Linked Group 2) 1 patch, TransDERmal, Administer over 24 Hours, Daily, First dose on Wed03/06/24 at 1345, For 42 days, Apply new patch to nonhairy, clean, dry skin on the upper body or upper outer arm. Rotate patch sites. Notify Pharmacy if patient or provider prefers patch to be removed at bedtime and replaced in the morning. 1345 (Not Given - Provider: Michelle Garcia RN - Reason: Patient/family refused) 0900 (Not Given - Provider: Michelle Garcia RN - Reason: Patient/family refused) 0900 (Not Given - Provider: Radha Fermin RN - Reason: Patient/family refused) nicotine (Nicoderm, Step 2) 14 MG/24HR patch 1 patch(Linked Group 2) 1 patch, TransDERmal, Administer over 24 Hours, Daily, First dose on Wed04/17/24 at 0900, For 14 days, Apply new patch to nonhairy, clean, dry skin on the upper body or upper outer arm. Rotate patch sites. Notify Pharmacy if patient or provider prefers patch to be removed at bedtime and replaced in the morning. nicotine (Nicoderm, Step 3) 7 MG/24HR patch 1 patch(Linked Group 2) 1 patch, TransDERmal, Administer over 24 Hours, Daily, First dose on Wed05/01/24 at 0900, For 14 days, Apply new patch to nonhairy, clean, dry skin on the upper body or upper outer arm. Rotate patch sites. Notify Pharmacy if patient or provider prefers patch to be removed at bedtime and replaced in the morning. potassium chloride 40 mEq in NS 500 mL IVPB (premix) (COMPLETED) 40 mEq, IntraVENous, at 125 mL/hr, Administer over 4 Hours, Once, On Wed03/06/24 at 0700, For 1 dose, Max infusion rate = 10 mEq/hr 1508 (New Bag - Provider: Michelle Garcia RN - Comment: 1 iv access)1908 (Due: Stopped - Provider: Michelle Garcia RN) potassium chloride CR (Klor-Con M10) ER tablet 40 mEq (COMPLETED) 40 mEq, Oral, Once, On Wed03/07/24 at 0800, For 1 dose, Best given with food and plenty of water to minimize gastric irritation. Do not crush or chew. 0957 (Given - Provider: Michelle Garcia RN) senna-docusate sodium (Senokot-S) 8.6-50 MG tablet 1 tablet 1 tablet, Oral, 2 times daily, First dose on Wed03/05/24 at 0915 0832 (Given - Provider: Michelle Gracia RN)2106 (Given - Provider: Kae Doty RN) 0957 (Given - Provider: Michelle Garcia RN)2007 (Given - Provider: Gretel De La Torre RN) 0900 (Not Given - Provider: Radha Fermin RN - Reason: Patient/family refused) thiamine (Vitamin B1) tablet 100 mg 100 mg, Oral, Daily, First dose on Wed03/04/24 at 1625 0832 (Given - Provider: Michelle Garcia RN) 0957 (Given - Provider: Michelle Garcia RN) 0936 (Given - Provider: Radha Fermin RN) Continuous Medication Order 03/06/2024 03/07/2024 03/08/2024 lactated Ringer's infusion (CANCELED) 150 mL/hr, IntraVENous, Continuous, Starting on 03/04/24 at 1620 0215 (New Bag - Provider: Kae Doty RN)1200 (Rate/Dose Verify - Provider: Michelle Garcia RN)1300 (Rate/Dose Change - Provider: Michelle Garcia RN) 0551 (New Bag - Provider: Kae Doty RN)0847 (Rate/Dose Verify - Provider: Vickie Dang, CHIARA) PRN Medication Order 03/06/2024 03/07/2024 03/08/2024 HYDROmorphone (Dilaudid) injection 0.5 mg (CANCELED) 0.5 mg, IntraVENous, Every 4 hours PRN, severe pain (7-10), second line, Starting on Wed03/05/24 at 0902, If oral and IV narcotics ordered, use oral first and only use IV if oral is ineffective or cannot take oral. Do Not give oral and IV within 1 hour of each other unless specifically ordered. 0215 (Given - Provider: Kae Doty RN)0628 (Given - Provider: Kae Doty RN)1103 (Given - Provider: Michelle Garcia RN)1505 (Given - Provider: Michelle Garcia RN)1936 (Given - Provider: Kae Doty RN)2345 (Given - Provider: Kae Doty RN) 0412 (Given - Provider: Kae Doty RN)0840 (Given - Provider: Vickie Dang, CHIARA) HYDROmorphone (Dilaudid) injection 0.5 mg (CANCELED) 0.5 mg, IntraVENous, Every 8 hours PRN, severe pain (7-10), second line, Starting on 03/07/24 at 1133, If oral and IV narcotics ordered, use oral first and only use IV if oral is ineffective or cannot take oral. Do Not give oral and IV within 1 hour of each other unless specifically ordered. 1818 (Given - Provider: Michelle Gracia, CHIARA) HYDROmorphone (Dilaudid) injection 0.5 mg (CANCELED) 0.5 mg, IntraVENous, Every 4 hours PRN, severe pain (7-10), second line, Starting on Wed03/07/24 at 2011, If oral and IV narcotics ordered, use oral first and only use IV if oral is ineffective or cannot take oral. Do Not give oral and IV within 1 hour of each other unless specifically ordered. 2219 (Given - Provider: Gretel De La Torre RN) 0219 (Given - Provider: Gretel De La Torre RN)0618 (Given - Provider: Gretel De La Torre RN) naloxone (Narcan) 0.4 mg in 0.9% sodium chloride 10 mL syringe IntraVENous, PRN, opioid reversal, Starting on 03/04/24 at 1615, PRN if respiratory rate is less than 6/min and patient is difficult to arouse then notify physician STAT. Mix 9 mL of sodium chloride 0.9% with 0.4 mg (1 mL) of naloxone (NARCAN) in 10 mL syringe. (Note: dilution is 0.04 mg/mL) Give 0.08 mg (2 mL of special dilution), slow IV push, repeat up to 0.4 mg (10 mL) or until patient is responsive to physical stimulation and respiratory rate is equal to or greater than 6 breaths/min. Continue to observe, if no response within 3 minutes of administration of 0.4 mg (10 mL) total, repeat dose (0.4 mg as administered previously). oxyCODONE (Roxicodone) immediate release tablet 10 mg(Linked Group 3) 10 mg, Oral, Every 4 hours PRN, severe pain (7-10), Starting on Wed03/05/24 at 0903 0432 (Given - Provider: Kae Doty, CHIARA)0832 (Given - Provider: Michelle Garcia, CHIARA)1241 (Given - Provider: Diane Perales RN)1654 (Given - Provider: Michelle Garcia, CHIARA)2107 (Given - Provider: Kae Doty, CHIARA) 0133 (See Alternative - Provider: Ev Grande RN)0551 (Given - Provider: Kae Doty RN)0957 (Given - Provider: Michelle Garcia RN)1452 (Given - Provider: Michelle Garcia RN)2007 (Given - Provider: Gretel De La Torre RN) 001 (Given - Provider: Gretel De La Torre RN)0418 (Given - Provider: Gretel De La Torre RN)0935 (Given - Provider: Radha Fermin RN) oxyCODONE (Roxicodone) immediate release tablet 5 mg(Linked Group 3) 5 mg, Oral, Every 4 hours PRN, moderate pain (4-6), Starting on 03/05/24 at 0903 0432 (See Alternative - Provider: Kae Doty RN)0832 (See Alternative - Provider: Michelle Garcia RN)1241 (See Alternative - Provider: Diane Perales RN)1654 (See Alternative - Provider: Michelle Garcia RN)2107 (See Alternative - Provider: Kae Doty RN) 0133 (Given - Provider: Ev Grande RN)0551 (See Alternative - Provider: Kae Doty RN)0957 (See Alternative - Provider: Michelle Garcia RN)1452 (See Alternative - Provider: Michelle Garcia RN)2007 (See Alternative - Provider: Gretel De La Torre RN) 14 (See Alternative - Provider: Gretel De La Torre RN)0418 (See Alternative - Provider: Gretel De La Torre RN)0935 (See Alternative - Provider: Radha Fermin, CHIARA) polyethylene glycol (PEG) 3350 (Miralax) packet 17 g 17 g, Oral, Daily PRN, constipation, Starting on 03/04/24 at 1953, 1st line for treatment of constipation - give scheduled if no bowel movement in past 24 hours. prochlorperazine (Compazine) injection 10 mg(Linked Group 4) 10 mg, IntraVENous, Every 6 hours PRN, nausea, vomiting, Starting on 03/05/24 at 1446, Give IV if patient is unable to take orally. Give IM if patient is unable to take orally and does not have IV access. 0215 (Given - Provider: Kae Doty RN)1112 (Given - Provider: Michelle Garcia RN)1837 (Given - Provider: Michelle Garcia RN) 1219 (Given - Provider: Michelle Garcia RN)2219 (Given - Provider: Gretel De La Torre RN) 0015 (See Alternative - Provider: Gretel De La Torre RN)0421 (Given - Provider: Gretel De La Torre RN)1040 (Given - Provider: Radha Fermin RN) prochlorperazine (Compazine) tablet 10 mg(Linked Group 4) 10 mg, Oral, Every 6 hours PRN, nausea, vomiting, Starting on 03/05/24 at 1446 0215 (See Alternative - Provider: Kae Doty RN)1112 (See Alternative - Provider: Michelle Garcia RN)1837 (See Alternative - Provider: Michelle Garcia RN) 1219 (See Alternative - Provider: Michelle Garcia RN)2219 (See Alternative - Provider: Gretel De La Torre RN) 0015 (Given - Provider: Gretel De La Torre RN)0421 (See Alternative - Provider: Gretel De La Torre RN)1040 (See Alternative - Provider: Radha Fermin RN) Linked Groups Order Group 1: acetaminophen (Tylenol) tablet 1,000 mgJump to med 1,000 mg, Oral, Every 8 hours, First dose (after last modification) on 03/05/24 at 0015, Maximum dose of acetaminophen is 4000 mg from all sources in 24 hours. Or acetaminophen (Tylenol) suppository 650 mg (CANCELED) 650 mg, Rectal, Every 8 hours, First dose (after last modification) on 03/05/24 at 0015, Administer if oral route cannot be used. Maximum dose of acetaminophen is 4000 mg from all sources in 24 hours. Group 2: nicotine (Nicoderm, Step 1) 21 MG/24HR patch 1 patchJump to med 1 patch, TransDERmal, Administer over 24 Hours, Daily, First dose on Wed03/06/24 at 1345, For 42 days, Apply new patch to nonhairy, clean, dry skin on the upper body or upper outer arm. Rotate patch sites. Notify Pharmacy if patient or provider prefers patch to be removed at bedtime and replaced in the morning. Followed by nicotine (Nicoderm, Step 2) 14 MG/24HR patch 1 patchJump to med 1 patch, TransDERmal, Administer over 24 Hours, Daily, First dose on Wed04/17/24 at 0900, For 14 days, Apply new patch to nonhairy, clean, dry skin on the upper body or upper outer arm. Rotate patch sites. Notify Pharmacy if patient or provider prefers patch to be removed at bedtime and replaced in the morning. Followed by nicotine (Nicoderm, Step 3) 7 MG/24HR patch 1 patchJump to med 1 patch, TransDERmal, Administer over 24 Hours, Daily, First dose on Wed05/01/24 at 0900, For 14 days, Apply new patch to nonhairy, clean, dry skin on the upper body or upper outer arm. Rotate patch sites. Notify Pharmacy if patient or provider prefers patch to be removed at bedtime and replaced in the morning. Group 3: oxyCODONE (Roxicodone) immediate release tablet 5 mgJump to med 5 mg, Oral, Every 4 hours PRN, moderate pain (4-6), Starting on 03/05/24 at 0903 Or oxyCODONE (Roxicodone) immediate release tablet 10 mgJump to med 10 mg, Oral, Every 4 hours PRN, severe pain (7-10), Starting on 03/05/24 at 0903 Group 4: prochlorperazine (Compazine) tablet 10 mgJump to med 10 mg, Oral, Every 6 hours PRN, nausea, vomiting, Starting on 03/05/24 at 1446 Or prochlorperazine (Compazine) injection 10 mgJump to med 10 mg, IntraVENous, Every 6 hours PRN, nausea, vomiting, Starting on 03/05/24 at 1446, Give IV if patient is unable to take orally. Give IM if patient is unable to take orally and does not have IV access. FOR RECORDS PERTAINING TO PATIENTS WHO ARE OR HAVE BEEN ENROLLED IN A CHEMICAL DEPENDENCY/SUBSTANCEABUSE PROGRAM, SOME INFORMATION MAY BE OMITTED. This clinical summary was aggregated from multiple sources. Caution should be exercised in using it in the provision of clinical care. This summary normalizes information from multiple sources, and as a consequence, information in this document may materially change the coding, format and clinical context of patient data. In addition, data may be omitted in some cases. CLINICAL DECISIONS SHOULD BE BASED ON THE PRIMARY CLINICAL RECORDS. [facility] provides no warranty or guarantee of the accuracy or completeness of information in this document.
[2024-05-09] MEDS: Lactated Ringers 1,000 ML 100 ML IV (19:47)
[2024-05-09 20:06] VITALS: BMI 24.5
[2024-05-09 20:09] VITALS: BP 113/67; PULSE 83; RESP 16; TEMP 36.6; O2SAT 94
[2024-05-09] MEDS: 0.9% Normal Saline (1000mL) 1,000 ML 100 ML IV (22:38)
[2024-05-09] MEDS: 0.9% Saline Lock 10 ML Syringe IV (22:39)
[2024-05-09] MEDS: Lactobacillis Acidophilus 1 CAP PO (22:40)
[2024-05-09] MEDS: Senna/Docusate Sodium 1 Tablet 2 TABLET PO (22:40)
[2024-05-09] MEDS: Ursodiol 250 MG Tablet PO (22:40)
[2024-05-09] MEDS: Acetaminophen 325 MG Tablet 650 MG PO (22:41)
[2024-05-10] MEDS: HYDROmorphone 0.5 MG/0.5 ML SYRINGE IV ×4 (02:43→23:18)
[2024-05-10 02:59] VITALS: BP 94/71; PULSE 90; RESP 16; TEMP 36.4; O2SAT 96
[2024-05-10] MEDS: 0.9% Saline Lock 10 ML Syringe IV (04:55)
[2024-05-10] MEDS: Sucralfate 1 GM Tablet PO ×3 (04:55→16:52)
[2024-05-10] MEDS: Ondansetron 4 MG/2 ML Vial IV (04:55)
[2024-05-10] MEDS: oxyCODONE 5 MG Tablet PO ×4 (04:55→22:10)
[2024-05-10] MEDS: Ursodiol 250 MG Tablet PO ×3 (04:55→22:12)
[2024-05-10] MEDS: Acetaminophen 325 MG Tablet 650 MG PO ×3 (04:56→17:47)
[2024-05-10 05:32] LABS: Absolute Lymphocyte Count 2.55 X10^3/uL (0.83-4.51); Absolute Neutrophil Count 7.1 X10^3/uL (2.0-7.7); Basophil# 0.05 X10^3/uL; Basophil% 0.5 % (0-1); Eosinophil# 0.23 X10^3/uL; Eosinophils% 2.2 % (0-5); Hematocrit 36.7 % (37-47); Lymphocyte # 2.55 X10^3/ul (0.83-4.51); Lymphocyte % 24.1 % (19-41); Mean Corp Hgb Conc 32.7 g/dL (32-36); Mean Corpuscular Hgb 29.7 pg (27.0-32.0); Mean Corpuscular Volume 90.8 fL (81-99); Mean Platelet Vol. 11.9 fl (6.2-12.0); Monocyte# 0.63 X10^3/uL; NRBC Flagged by Analyzer 0 % (0-5); Neutrophil # 7.07 X10^3/uL (2.7-7.7); Neutrophil % 66.8 % (47-70); Platelet Count 309 K/mm3 (150-450); RBC Distribution Width CV 14.3 % (11.6-14.6); RBC Distribution Width SD 47.6 fl (35.1-43.9); Red Blood Count 4.04 M/mm3 (4.2-5.4); White Blood Count 10.6 K/mm3 (4.4-11.0)
[2024-05-10 06:02] LABS: ALB/GLOB Ratio 0.8 RATIO (0.9-2.4); AST(SGOT) 12 U/L (15-37); Alanine Aminotransfer ALT/SGPT 25 U/L (13-56); Albumin, Serum 2.8 g/dL (3.2-5.0); Alkaline Phosphatase 129 U/L (45-117); Anion Gap 6 (5-15); BUN 6 mg/dL (7-18); Calcium,Total 8.4 mg/dL (8.5-10.1); Chloride 105 mmol/L (98-107); Creatinine, Serum 0.46 mg/dL (0.55-1.02); EST Glomerular Filtration Rate 165 mL/min (>60); Est Glom Filt Rate - Afr Amer 200 mL/min (>60); Estimated Creatinine Clearance 150.84 ml/min; Globulin 3.4 g/dL (2.2-4.2); Glucose 94 mg/dL (74-106); Potassium 3.4 mmol/L (3.5-5.1); Protein, Total 6.2 g/dL (6.4-8.2); Sodium Level 137 mmol/L (136-145)
--- NOTE | 2024-05-10 08:41 | PN.HOSP_ITS ---
Reason for Visit Reason for Visit: Diagnoses Acute pancreatitis without necrosis or infection, unspecified (05/09/24) Other chronic pancreatitis (05/09/24) Subjective Subjective Feeling better, still with abdominal pain. Objective Data Objective Data Vital Signs: Vital Signs Temp Pulse Resp BP Pulse Ox O2 Del Method 36.4 C L 90 16 94/71 96 Room Air 05/10/24 02:59 05/10/24 02:59 05/10/24 02:59 05/10/24 02:59 05/10/24 02:59 05/10/24 02:59 Oxygen Delivery Method Room Air Weight: 60.9 kg Body Mass Index (BMI) 24.5 Intake & Output: Intake and Output for Last 24 Hours 05/08/24 05/09/24 05/10/24 23:59 23:59 23:59 Intake Total 1000 / 1000 1000 / 1000 Balance 1000 / 1000 1000 / 1000 Lab / Micro Data 05/10/24 05:00 05/10/24 05:00 Labs: Laboratory Results - last 24 hr 05/09/24 13:40: WBC 13.8 H, RBC 4.48, Hgb 13.2, Hct 40.1, MCV 89.5, MCH 29.5, MCHC 32.9, RDW Std Deviation 45.6 H, RDW Coeff of Mercedes 14.2, Plt Count 378, MPV 11.7, Immature Gran % (Auto) 0.700, Neut % (Auto) 79.4 H, Lymph % (Auto) 15.4 L, [place] % (Auto) 3.3, Eos % (Auto) 0.8, Baso % (Auto) 0.4, Absolute Neuts (auto) 11.0 H, Absolute Lymphs (auto) 2.12, Nucleated RBC % 0, Sodium 135 L, Potassium 4.2, Chloride 102, Carbon Dioxide 25.0, Anion Gap 8, BUN 10, Creatinine 0.53 L, Estim Creat Clear Calc 130.50, Est GFR (MDRD) Af Amer 172, Est GFR (MDRD) Non-Af 142, BUN/Creatinine Ratio 18.9, Glucose 119 H, Calcium 9.1, Total Bilirubin 0.80, AST 25, ALT 40, Alkaline Phosphatase 153 H, Total Protein 7.6, Albumin 3.3, Globulin 4.3 H, Albumin/Globulin Ratio 0.8 L, Lipase 733 H 05/09/24 16:16: Serum , Qual NEGATIVE 05/10/24 05:00: WBC 10.6, RBC 4.04 L, Hgb 12.0, Hct 36.7 L, MCV 90.8, MCH 29.7, MCHC 32.7, RDW Std Deviation 47.6 H, RDW Coeff of Mercedes 14.3, Plt Count 309, MPV 11.9, Immature Gran % (Auto) 0.400, Neut % (Auto) 66.8, Lymph % (Auto) 24.1, [place] % (Auto) 6.0, Eos % (Auto) 2.2, Baso % (Auto) 0.5, Absolute Neuts (auto) 7.1, Absolute Lymphs (auto) 2.55, Nucleated RBC % 0, Sodium 137, Potassium 3.4 L , Chloride 105, Carbon Dioxide 26.0, Anion Gap 6, BUN 6 L, Creatinine 0.46 L, Estim Creat Clear Calc 150.84, Est GFR (MDRD) Af Amer 200, Est GFR (MDRD) Non-Af 165, BUN/Creatinine Ratio 13.0, Glucose 94, Calcium 8.4 L, Total Bilirubin 1.10 H, AST 12 L, ALT 25, Alkaline Phosphatase 129 H, Total Protein 6.2 L, Albumin 2.8 L, Globulin 3.4, Albumin/Globulin Ratio 0.8 L Radiography Diagnostic Testing: Radiology Impression Abdomen/Pelvis CT 05/09/24 15:32 IMPRESSION: 1. Significant soft tissue stranding and edema involving the pancreas including the head and uncinate process neck and portion of the body consistent with acute pancreatitis. Scattered lymph nodes are present within the pancreatic bed. No abscess or free air. 2. Stable appearance of a small cyst within the pancreatic body measuring approximately 1.5 x 1.4 cm. 3. Stable appearance of a small encapsulated fluid collection along the LEFT diaphragmatic shira. 4. No evidence of bowel obstruction. Normal appearance of the appendix. 5. Status post cholecystectomy without evidence of ductal dilatation. 6. No evidence of renal calcification or obstructive uropathy. 7. Diffuse hepatic steatosis. Electronically Signed: Abdoul Philip MD at 17:32 EDT , Physical Exam Const alert and no apparent distress HEENT head/scalp atraumatic and moist oral mucous membranes Resp normal respiratory effort, no retractions, no use of accessory muscles and clear to auscultation bilaterally Cardio regular rate, regular rhythm, S1 normal heart sound and S2 normal heart sound GI normal to inspection, nondistended, normoactive bowel sounds, soft to palpation, non-tender and non-distended Extremity normal to inspection Neuro Sensorium / Orientation: awake and alert Assessment & Plan Assessment/Plan (1) Acute on chronic pancreatitis: PLAN: Plan Acute on chronic pancreatitis * Lipase 733 * CT abd/pelvis with soft tissue stranding and edema involving the pancreas including the head and uncinate process consistent with acute pancreatitis. No abscess or free air. Stable small cyst in pancreatic body and stable appearance of small encapsulated collection along left diaphragmatic crux * IVF, Pain Control * GI consult Chronic conditions: * GERD-Continue PPI * Tobacco use-Advise cessation-Nicotine replacement available if desired VTE prophylaxis: SCDs. Charges/Coding Visit Charges Inpatient E&M: 71659 Subs Hosp L2
[2024-05-10] MEDS: Lactobacillis Acidophilus 1 CAP PO ×2 (08:43→22:12)
[2024-05-10] MEDS: 0.9% Normal Saline (1000mL) 1,000 ML 100 ML IV (08:43)
[2024-05-10] MEDS: Pantoprazole Sodium 40 MG Tablet PO (08:44)
[2024-05-10] MEDS: Senna/Docusate Sodium 1 Tablet 2 TABLET PO ×2 (08:44→22:11)
[2024-05-10 08:51] VITALS: BP 108/68; PULSE 88; RESP 18; TEMP 36.8; O2SAT 97
--- NOTE | 2024-05-10 11:25 | CASEMGMT ---
CHIARA LEYVA Assessment: Face to Face with pt for initial transition planning/care coordination assessment. CHIARA LEYVA introduced self and role at [facility], pt voices understanding and consents to assessment. Pt is A&O x4 and answers all questions appropriately at this time. Pt lying in bed in no distress. Care providers, pharmacy, and demographics verified/updated. Strata: 2 Admitting Dx: Recurrent Acute Pancreatitis PCP: Karen Specialists: Friend, Gastrologist Preferred Pharmacy: [facility] Insurance: [facility] Prescription Benefit: yes LNOK: MomSkylar Living Arrangements: Pt lives with significant other and kids in a mobile home with 6 steps to enter. ADLs: Pt reports I at baseline. Transportation: Pt family provides transportation and denies concerns with transportation. DME: Denies HHC/SNF: Denies Hx of. Pt states no concerns with going home at time of dc. Pt reports smokes 1-2 cigarettes a day, denies alcohol use, denies use of any illegal drugs. Pt states no further concerns/needs. CM to follow. Advised pt to ask CM if any further question/concerns/needs arise, voices understanding. Pt Goal: Home Plan: Home, follow plan of care. Jitendra GUADARRAMA CM
[2024-05-10 15:14] VITALS: BP 107/66; PULSE 92; RESP 18; TEMP 36.6; O2SAT 94
--- NOTE | 2024-05-10 17:06 | CON.PCM.GI_ITS ---
HPI Consult Data Date of Consult: 05/10/24 HPI Narrative Reason for Consultation: Pancreatitis HPI Narrative: FEROZ CHEEK, is a 33-year-old female with history of pancreatitis and pseudocyst of the pancreas as well as IBS, choledocholithiasis (status post cholecystectomy) presenting with nausea, vomiting and epigastric abdominal pain. She states this morning she developed the symptoms. She did feel like her prior pancreatitis but worse because of the vomiting which she does not normally have. She is the pain is in her epigastric region radiates to her back and underneath her breast bilaterally. She was admitted last month for acute pancreatitis and discharged on 03/28/2024. CT on 04/11 showed pseudocysts/area of walled off necrosis of the pancreatic body/tail. She states that she normally takes tramadol and her pain is well-controlled since being discharged in the hospital but did not help with her pain at all today. She also tried Zofran for symptoms with no relief. Denies any black or blood in her vomit. Is on a bowel movement today but states yesterday was normal. Patient denies any alcohol use. Patient also has a pain and bruising to her right rib in the flank area. She states she was wrestling around with her boyfriend and hit the wall. She has pain to that site. Not sure if that is causing her pancreatitis today. [facility] Medical History Acute pancreatitis Cannabis use disorder Choledocholithiasis Anemia Tobacco use Pancreatitis IBS (irritable bowel syndrome) Home Medications ?Medication ?Instructions ?Recorded ?Last Taken ?Type Lactobacillus acidophilus 500 500 mmu cells PO BID [facility] 01/12/24 01/12/24 History million cell capsule albuterol sulfate 90 mcg/actuation 1 - 2 puff inhalation Q6H PRN 01/12/24 Unknown History aerosol inhaler ASTHMA omeprazole 40 mg capsule,delayed 40 mg PO DAILY GERD 30 days #30 01/15/24 Unknown Rx release caps acetaminophen 500 mg tablet 1,000 mg (2 x 500 mg) PO Q8 #0 tabs 03/18/24 Unknown Rx ursodiol 300 mg capsule 300 mg PO TID #90 caps 03/18/24 Unknown Rx sennosides 8.6 mg-docusate sodium 1 tab-cap PO BID 03/26/24 Unknown History 50 mg capsule (Senna Plus) prochlorperazine maleate 10 mg 10 mg PO Q6H PRN nausea and 03/28/24 Unknown Rx tablet (Compazine) vomiting #30 tabs sucralfate 100 mg/mL oral 10 ml PO TID #1,000 mL 03/31/24 Unknown Rx suspension dicyclomine 20 mg tablet 20 mg PO TID #90 tabs 04/04/24 Unknown Rx tramadol 100 mg tablet 100 mg PO Q6H PRN pain #60 tabs 04/10/24 Unknown Rx folic acid 1 mg tablet 1 mg PO DAILY SUPPLEMENT #30 tabs 04/17/24 Unknown Rx thiamine HCl (vitamin B1) 100 mg 100 mg PO DAILY SUPPLEMENT #30 04/17/24 Unknown Rx tablet tabs docusate sodium 100 mg capsule 100 mg PO DAILY #30 caps 05/09/24 Unknown Rx Allergy/AdvReac Type Severity Reaction Status Date / Time codeine AdvReac Intermediate Vomiting Verified 05/09/24 13:25 Family History Mother Diabetes Asthma Thyroid disorder IBS (irritable bowel syndrome) Father Diabetes Hypertension Surgical History Previous section S/P ERCP History of cholecystectomy Social History household members: significant other and children Smoking Status: Light Smoker (<10/day) alcohol intake: never details: no alcohol substance use type: marijuana ROS ROS Narrative General: Denies fever/chills HENT: Denies headache, denies stuffy nose, denies sore throat EYES: Denies changes in vision Resp: Denies cough, denies shortness of breath Cardiac: Denies chest pain GI: Epigastric abdominal pain rating towards left, denies changes in bowel, patient with some nausea and vomiting : Denies changes in urination Extremity: Denies swelling MSK: Denies weakness, has some pain on ribs on right mid posterior chest wall Neuro: Denies any numbness/tingling Heme: Little bit of bruising on posterior ribs Skin: Denies rashes Psychiatric: No complaints voiced Physical Exam Const alert and no apparent distress HEENT head/scalp atraumatic and moist oral mucous membranes Resp normal respiratory effort, no retractions, no use of accessory muscles and clear to auscultation bilaterally Cardio regular rate, regular rhythm, S1 normal heart sound and S2 normal heart sound GI normal to inspection, nondistended, normoactive bowel sounds, soft to palpation, non-tender and non-distended Extremity normal to inspection Neuro Sensorium / Orientation: awake and alert Lab / Micro Data 05/10/24 05:00 05/10/24 05:00 Labs: Laboratory Results - last 24 hr 05/10/24 05:00: WBC 10.6, RBC 4.04 L, Hgb 12.0, Hct 36.7 L, MCV 90.8, MCH 29.7, MCHC 32.7, RDW Std Deviation 47.6 H, RDW Coeff of Mercedes 14.3, Plt Count 309, MPV 11.9, Immature Gran % (Auto) 0.400, Neut % (Auto) 66.8, Lymph % (Auto) 24.1, [place] % (Auto) 6.0, Eos % (Auto) 2.2, Baso % (Auto) 0.5, Absolute Neuts (auto) 7.1, Absolute Lymphs (auto) 2.55, Nucleated RBC % 0, Sodium 137, Potassium 3.4 L , Chloride 105, Carbon Dioxide 26.0, Anion Gap 6, BUN 6 L, Creatinine 0.46 L, Estim Creat Clear Calc 150.84, Est GFR (MDRD) Af Amer 200, Est GFR (MDRD) Non-Af 165, BUN/Creatinine Ratio 13.0, Glucose 94, Calcium 8.4 L, Total Bilirubin 1.10 H, AST 12 L, ALT 25, Alkaline Phosphatase 129 H, Total Protein 6.2 L, Albumin 2.8 L, Globulin 3.4, Albumin/Globulin Ratio 0.8 L Imaging Radiology Impression Abdomen/Pelvis CT 05/09/24 15:32 IMPRESSION: 1. Significant soft tissue stranding and edema involving the pancreas including the head and uncinate process neck and portion of the body consistent with acute pancreatitis. Scattered lymph nodes are present within the pancreatic bed. No abscess or free air. 2. Stable appearance of a small cyst within the pancreatic body measuring approximately 1.5 x 1.4 cm. 3. Stable appearance of a small encapsulated fluid collection along the LEFT diaphragmatic shira. 4. No evidence of bowel obstruction. Normal appearance of the appendix. 5. Status post cholecystectomy without evidence of ductal dilatation. 6. No evidence of renal calcification or obstructive uropathy. 7. Diffuse hepatic steatosis. Electronically Signed: Abdoul Philip MD at 17:32 EDT , Assessment & Plan Assessment/Plan (1) Acute pancreatitis: QUALIFIERS: Pancreatitis type: idiopathic Acute pancreatitis complication: unspecified Qualified Code(s): K85.00 - Idiopathic acute pancreatitis without necrosis or infection PLAN: Plan Patient is a 33-year-old lady with multiple admission for pancreatitis presented with abdominal pain Abdominal pain secondary to Acute pancreatitis secondary to Choledocholithiasis ERCP on 03/17/2024 did show A single localized biliary stricture was found in the lower third of the main bile duct. Previously she had choledocholithiasis was found and removed. Complete removal was accomplished by biliary sphincterotomy and balloon extraction. One stent was removed from the biliary tree. CT of the abdomen obtained on admission revealed new fluid collection adjacent to the left adrenal gland, suggestive of a pseudocyst. Biliary stent was removed Additionally there are areas of fluid in the pancreatic body/tail which are better defined than on prior suggestive of pseudocyst/walled off necrosis. Nonspecific hypodense lesion at the dome of the liver, which is not definitively seen on previous imaging. This area appears somewhat hyperenhancing on priors, suggestive of possible hemangioma. Currently her white count is normal and her hematocrit is 34%. Her BUN is normal at 12 and creatinine is 0.7. Those are good indicators for proper resuscitation from acute pancreatitis. She has a very low Roselle score and low score by imaging. At this time she is recommending pain control, nausea control and continue IV fluids. Charges/Coding Visit Charges Inpatient E&M: 77402 Init Hosp L3
--- NOTE | 2024-05-10 17:48 | NURSING ---
Dr Miller visited pt and upgraded diet to reg food, Dr Casillas had told the pt earlier in the day that she would be on low fat when she started back on a diet so that is what was ordered-pt requesting pain meds so I can tolerate my diet -see mar
[2024-05-10 20:29] VITALS: BP 96/58; PULSE 104; RESP 16; TEMP 36.6; O2SAT 98
[2024-05-10 22:08] VITALS: BP 102/83; PULSE 96; RESP 20; TEMP 37; O2SAT 100
[2024-05-10 23:18] VITALS: BP 135/69; PULSE 75
[2024-05-11 02:16] VITALS: BP 116/72; PULSE 97; RESP 18; TEMP 37; O2SAT 98
[2024-05-11] MEDS: oxyCODONE 5 MG Tablet PO ×3 (02:20→12:40)
[2024-05-11] MEDS: Acetaminophen 325 MG Tablet 650 MG PO ×2 (02:20→09:50)
[2024-05-11 06:35] VITALS: BP 117/73; PULSE 83; RESP 18; TEMP 36.9; O2SAT 96
[2024-05-11] MEDS: Sucralfate 1 GM Tablet PO ×2 (06:36→09:46)
[2024-05-11] MEDS: Ursodiol 250 MG Tablet PO (06:36)
[2024-05-11 07:20] LABS: Absolute Lymphocyte Count 2.32 X10^3/uL (0.83-4.51); Absolute Neutrophil Count 6.7 X10^3/uL (2.0-7.7); Basophil# 0.02 X10^3/uL; Basophil% 0.2 % (0-1); Eosinophil# 0.17 X10^3/uL; Eosinophils% 1.7 % (0-5); Hematocrit 33.8 % (37-47); Lymphocyte # 2.32 X10^3/ul (0.83-4.51); Lymphocyte % 23.6 % (19-41); Mean Corp Hgb Conc 32.5 g/dL (32-36); Mean Corpuscular Hgb 29.3 pg (27.0-32.0); Mean Corpuscular Volume 90.1 fL (81-99); Mean Platelet Vol. 12.4 fl (6.2-12.0); Monocyte# 0.59 X10^3/uL; NRBC Flagged by Analyzer 0 % (0-5); Neutrophil # 6.71 X10^3/uL (2.7-7.7); Neutrophil % 68.2 % (47-70); Platelet Count 260 K/mm3 (150-450); RBC Distribution Width SD 46.1 fl (35.1-43.9); Red Blood Count 3.75 M/mm3 (4.2-5.4); White Blood Count 9.8 K/mm3 (4.4-11.0)
[2024-05-11 07:31] LABS: Erythrocyte Sedimentation Rate 26 mm/hr (0-30)
--- NOTE | 2024-05-11 08:15 | PN.HOSP_ITS ---
Reason for Visit Reason for Visit: Diagnoses Acute pancreatitis without necrosis or infection, unspecified (05/09/24) Other chronic pancreatitis (05/09/24) Subjective Subjective Still with abdominal pain, but improved overall. Tolerating diet. Objective Data Objective Data Vital Signs: Vital Signs Temp Pulse Resp BP Pulse Ox O2 Del Method 36.9 C 83 18 117/73 96 Room Air 05/11/24 06:35 05/11/24 06:35 05/11/24 06:35 05/11/24 06:35 05/11/24 06:35 05/11/24 06:35 Oxygen Delivery Method Room Air Weight: 60.9 kg Body Mass Index (BMI) 24.5 Intake & Output: Intake and Output for Last 24 Hours 05/09/24 05/10/24 05/11/24 23:59 23:59 23:59 Intake Total 1000 / 1000 4087.67 / 4287.67 500 / 500 Balance 1000 / 1000 4087.67 / 4287.67 500 / 500 Lab / Micro Data 05/11/24 06:32 05/11/24 06:32 Labs: Laboratory Results - last 24 hr 05/11/24 06:32: WBC 9.8, RBC 3.75 L, Hgb 11.0 L, Hct 33.8 L, MCV 90.1, MCH 29.3, MCHC 32.5, RDW Std Deviation 46.1 H, RDW Coeff of Mercedes 14.0, Plt Count 260, MPV 12.4 H, Immature Gran % (Auto) 0.300, Neut % (Auto) 68.2, Lymph % (Auto) 23.6, [place] % (Auto) 6.0, Eos % (Auto) 1.7, Baso % (Auto) 0.2, Absolute Neuts (auto) 6.7, Absolute Lymphs (auto) 2.32, Nucleated RBC % 0, ESR 26 Physical Exam Const alert and no apparent distress Resp normal respiratory effort, no retractions, no use of accessory muscles and clear to auscultation bilaterally Cardio regular rate, regular rhythm, S1 normal heart sound and S2 normal heart sound GI normal to inspection, nondistended, normoactive bowel sounds, soft to palpation, non-tender and non-distended Neuro Sensorium / Orientation: awake and alert Assessment & Plan Assessment/Plan (1) Acute on chronic pancreatitis: PLAN: Plan Acute on chronic pancreatitis * Lipase 733 * CT abd/pelvis with soft tissue stranding and edema involving the pancreas including the head and uncinate process consistent with acute pancreatitis. No abscess or free air. Stable small cyst in pancreatic body and stable appearance of small encapsulated collection along left diaphragmatic crux * IVF, Pain Control * GI recommending medical mgmt at this time. Patient tolerating Regular diet. Chronic conditions: * GERD-Continue PPI * Tobacco use-Advise cessation-Nicotine replacement available if desired VTE prophylaxis: SCDs.
[2024-05-11 08:29] LABS: ALB/GLOB Ratio 0.7 RATIO (0.9-2.4); AST(SGOT) 10 U/L (15-37); Alanine Aminotransfer ALT/SGPT 18 U/L (13-56); Albumin, Serum 2.6 g/dL (3.2-5.0); Alkaline Phosphatase 127 U/L (45-117); Anion Gap 6 (5-15); BUN 4 mg/dL (7-18); Calcium,Total 8.5 mg/dL (8.5-10.1); Chloride 108 mmol/L (98-107); EST Glomerular Filtration Rate 150 mL/min (>60); Est Glom Filt Rate - Afr Amer 182 mL/min (>60); Estimated Creatinine Clearance 138.77 ml/min; Globulin 3.6 g/dL (2.2-4.2); Glucose 91 mg/dL (74-106); Lipase 172 U/L (13-75); Potassium 3.3 mmol/L (3.5-5.1); Protein, Total 6.2 g/dL (6.4-8.2); Sodium Level 137 mmol/L (136-145)
[2024-05-11] MEDS: HYDROmorphone 0.5 MG/0.5 ML SYRINGE IV (09:45)
[2024-05-11] MEDS: 0.9% Saline Lock 10 ML Syringe IV (09:46)
[2024-05-11] MEDS: Pantoprazole Sodium 40 MG Tablet PO (09:46)
[2024-05-11] MEDS: Lactobacillis Acidophilus 1 CAP PO (09:47)
[2024-05-11] MEDS: Senna/Docusate Sodium 1 Tablet 2 TABLET PO (09:47)
[2024-05-11 10:03] VITALS: BP 129/80; PULSE 91; RESP 18; TEMP 36.7; O2SAT 99
--- NOTE | 2024-05-11 12:47 | DS.PCM_ITS ---
Providers Date of Admission: 05/09/24 Primary Care Physician: Dr. Rossi Jones, DO Consultations 05/09/24 20:19 Consult: Gastroenterology Routine Consulting Provider: [facility] Reason for Consult: acute on recurrent pancreatitis EMERGENT Consult: No MD Notified: Yes Date Notified: 05/09/24 Time Notified: 20:22 Method of Notification: Text Reason For Visit: RECURRENT ACUTE PANCREATITIS Diagnosis Discharge Diagnosis (1) Acute on chronic pancreatitis: Status: Chronic Code(s): K85.90 - Acute pancreatitis without necrosis or infection, unspecified; K86.1 - Other chronic pancreatitis Plan Acute on chronic pancreatitis * Lipase 733 * CT abd/pelvis with soft tissue stranding and edema involving the pancreas including the head and uncinate process consistent with acute pancreatitis. No abscess or free air. Stable small cyst in pancreatic body and stable appearance of small encapsulated collection along left diaphragmatic crux * IVF, Pain Control * GI recommending medical mgmt at this time. Patient tolerating Regular diet. Chronic conditions: * GERD-Continue PPI * Tobacco use-Advise cessation-Nicotine replacement available if desired VTE prophylaxis: SCDs. Medications at Discharge Home Medications Lactobacillus acidophilus 500 million cell capsule 500 mmu cells PO BID [facility] 01/12/24 albuterol sulfate 90 mcg/actuation aerosol inhaler 1 - 2 puff inhalation Q6H PRN ASTHMA 01/12/24 omeprazole 40 mg capsule,delayed release 40 mg PO DAILY GERD 30 days #30 caps 01/15/24 acetaminophen 500 mg tablet 1,000 mg (2 x 500 mg) PO Q8 #0 tabs 03/18/24 ursodiol 300 mg capsule 300 mg PO TID #90 caps 03/18/24 sennosides 8.6 mg-docusate sodium 50 mg capsule (Senna Plus) 1 tab-cap PO BID 03/26/24 prochlorperazine maleate 10 mg tablet (Compazine) 10 mg PO Q6H PRN nausea and vomiting #30 tabs 03/28/24 sucralfate 100 mg/mL oral suspension 10 ml PO TID #1,000 mL 03/31/24 dicyclomine 20 mg tablet 20 mg PO TID #90 tabs 04/04/24 tramadol 100 mg tablet 100 mg PO Q6H PRN pain #60 tabs 04/10/24 folic acid 1 mg tablet 1 mg PO DAILY SUPPLEMENT #30 tabs 04/17/24 thiamine HCl (vitamin B1) 100 mg tablet 100 mg PO DAILY SUPPLEMENT #30 tabs 04/17/24 docusate sodium 100 mg capsule 100 mg PO DAILY #30 caps 05/09/24 oxycodone 5 mg tablet 5 mg PO Q4H PRN PRN Pain Score 4-10 3 days #12 tabs 05/11/24 Hospital Course Operations None Procedures None Summary of Care Provided Hospital Course: Patient presents with recurrent pancreatitis. She had a CT of her abdomen pelvis that showed significant soft tissue stranding and edema involving the pancreas including the head and uncinate process neck and portion of the body. Also noted to have a stable appearing cysts of about 1.5 x 1.4 cm in the pancreatic body. Stable appearance of the small encapsulated fluid collection along the left diaphragmatic shira. Patient was seen by gastroenterology while she was here and just recommended continued medical management. Previously patient has undergone autoimmune workup which has been unremarkable. Patient has been since referred over to [facility] For surgery evaluation for endoscopic ultrasound and possible biopsy. Patient is was started on fluids here as well as pain control and is overall feeling better. Patient will be discharged home with follow-up with gastroenterology Weight / BMI Weight Weight: 60.9 kg Body Mass Index (BMI) 24.5 ABG / Lab / Microbiology Data 05/11/24 06:32 05/11/24 06:32 Laboratory: Laboratory Results - last 24 hr 05/11/24 06:32: WBC 9.8, RBC 3.75 L, Hgb 11.0 L, Hct 33.8 L, MCV 90.1, MCH 29.3, MCHC 32.5, RDW Std Deviation 46.1 H, RDW Coeff of Mercedes 14.0, Plt Count 260, MPV 12.4 H, Immature Gran % (Auto) 0.300, Neut % (Auto) 68.2, Lymph % (Auto) 23.6, [place] % (Auto) 6.0, Eos % (Auto) 1.7, Baso % (Auto) 0.2, Absolute Neuts (auto) 6.7, Absolute Lymphs (auto) 2.32, Nucleated RBC % 0, ESR 26, Sodium 137, P otassium 3.3 L, Chloride 108 H, Carbon Dioxide 23.0, Anion Gap 6, BUN 4 L, C reatinine 0.50 L, Estim Creat Clear Calc 138.77, Est GFR (MDRD) Af Amer 182, Est GFR (MDRD) Non-Af 150, BUN/Creatinine Ratio 8.0 L, Glucose 91, Calcium 8.5, Total Bilirubin 0.70, AST 10 L, ALT 18, Alkaline Phosphatase 127 H, C-React Prot Ext Range 52.80 H, Total Protein 6.2 L, Albumin 2.6 L, Globulin 3.6, A lbumin/Globulin Ratio 0.7 L, Lipase 172 H D/C Instructions Discharge Diet: No restrictions Meaningful Use Info Meaningful Use Meaningful Use Diagnoses (Choose all that apply): None applicable Ischemic Stroke Statin Dosing Therapy Reference: STATIN DOSE THERAPY REFERENCE: * Patients > 75 years receive moderate or high dose statin therapy. * Patients 75 years or YOUNGER should receive HIGH intensity statin dose unless contraindicated. You will be required to document reason for non-treatment if statin daily dose does not meet guidelines. HIGH DOSE STATIN THERAPY DAILY Atorvastatin > than or = to 40 mg Rosuvastatin > than or = to 20 mg Amlodipine + Atorvastatin > than or = to 2.5/40 mg Ezetimibe + Simvastatin 10/80 mg Simvastatin 80mg Discharge Plan Admission Admit Date/Time: 05/09/24 18:57 Primary Reason for Your Visit: pancreatitis Attending Provider: Danilo Casillas Primary Care Provider: Rossi Jones Consulting Providers: Jessi Ayers Discharge Orders/Prescriptions Prescriptions: New oxycodone 5 mg Tablet 5 mg PO Q4H PRN PRN (Reason: Pain Score 4-10) 3 Days Qty: 12 0RF Continued sucralfate 100 mg/mL suspension 10 ml PO TID Qty: 1000 0RF acetaminophen 500 mg Tablet 1,000 mg PO Q8 Qty: 0 0RF ursodiol 300 mg capsule 300 mg PO TID Qty: 90 0RF Senna Plus 8.6-50 mg capsule 1 tab-cap PO BID prochlorperazine maleate [Compazine] 10 mg tablet 10 mg PO Q6H PRN (Reason: nausea and vomiting) Qty: 30 0RF Lactobacillus acidophilus 500 million cell capsule 500 mmu cells PO BID omeprazole 40 mg capsule,delayed release(DR/EC) 40 mg PO DAILY 30 Days Qty: 30 0RF dicyclomine 20 mg tablet 20 mg PO TID Qty: 90 1RF tramadol 100 mg tablet 100 mg PO Q6H PRN (Reason: pain) Qty: 60 1RF folic acid 1 mg tablet 1 mg PO DAILY Qty: 30 5RF thiamine HCl (vitamin B1) 100 mg tablet 100 mg PO DAILY Qty: 30 5RF docusate sodium 100 mg capsule 100 mg PO DAILY Qty: 30 0RF No Action albuterol sulfate 90 mcg/actuation HFA aerosol inhaler 1 - 2 puff inhalation Q6H PRN (Reason: ASTHMA ) Referrals / Follow Up: [facility] [Provider Group] - 07/03/24 1:00 pm Rossi Jones DO [Primary Care Provider] - Within 2 Weeks Disposition Disposition (needs filled in before D/C Order can be placed): Home, Self Care Charges/Coding Visit Charges Inpatient E&M: 34608 Disch Hosp
[2024-05-11 12:55] VITALS: BP 104/66; PULSE 78; RESP 18; TEMP 36.7; O2SAT 95
== END 2024-05-11 14:31 | disposition home or self-care (01) | DRG 282 ==
LOC: ED 15:35 → MS3 19:37
PROVIDERS: Internal Medicine Gastroenterology; Admitting Provider Internal Medicine; Emergency Provider Emergency Medicine; PCP Family Medicine
DX: K86.1 Other chronic pancreatitis (principal); F17.210 Nicotine dependence, cigarettes, uncomplicated; K21.9 Gastro-esophageal reflux disease without esophagitis; K58.9 Irritable bowel syndrome, unspecified; K85.00 Idiopathic acute pancreatitis without necrosis or infection; Z90.49 Acquired absence of other specified parts of digestive tract; Z79.899 Other long term (current) drug therapy
CPT/HCPCS: 36415; 74177; 80053; 83690; 84703; 85025; 85652; 86140; 99284; 99406; J7030; J7120; Q9967; A4216; J2405

== ENCOUNTER 2024-07-17 21:41 | Observation (INO) | payer MEDICAID, SELFPAY ==
[2024-07-17 21:42] VITALS: BP 127/98; PULSE 101; RESP 18; TEMP 36.6; O2SAT 97; BMI 23.6
[2024-07-17 22:24] LABS: Absolute Lymphocyte Count 2.51 X10^3/uL (0.83-4.51); Absolute Neutrophil Count 9.6 X10^3/uL (2.0-7.7); Basophil# 0.06 X10^3/uL; Basophil% 0.5 % (0-1); Eosinophil# 0.21 X10^3/uL; Eosinophils% 1.6 % (0-5); Hematocrit 43.3 % (37-47); Hemoglobin 14.3 g/dL (12.0-15.0); Lymphocyte # 2.51 X10^3/ul (0.83-4.51); Mean Corpuscular Volume 87.8 fL (81-99); Monocyte# 0.69 X10^3/uL; Monocyte% 5.2 % (0-10); NRBC Flagged by Analyzer 0 % (0-5); Neutrophil # 9.64 X10^3/uL (2.7-7.7); Neutrophil % 73.2 % (47-70); Platelet Count 285 K/mm3 (150-450); RBC Distribution Width CV 13.4 % (11.6-14.6); RBC Distribution Width SD 43.4 fl (35.1-43.9); Red Blood Count 4.93 M/mm3 (4.2-5.4); White Blood Count 13.2 K/mm3 (4.4-11.0)
[2024-07-17 22:33] LABS: Internal QC Validated? YES +Cl - CLEAR BKGD; Pregnancy, Serum, hCG Quali. NEGATIVE Negative
[2024-07-17 22:45] LABS: ALB/GLOB Ratio 0.9 RATIO (0.9-2.4); AST(SGOT) 23 U/L (15-37); Alanine Aminotransfer ALT/SGPT 37 U/L (13-56); Albumin, Serum 3.5 g/dL (3.2-5.0); Alkaline Phosphatase 163 U/L (45-117); Anion Gap 7 (5-15); BUN 12 mg/dL (7-18); BUN/Creat Ratio 16.5 RATIO (10-20); Chloride 100 mmol/L (98-107); Creatinine, Serum 0.73 mg/dL (0.55-1.02); EST Glomerular Filtration Rate 98 mL/min (>60); Est Glom Filt Rate - Afr Amer 119 mL/min (>60); Globulin 4.1 g/dL (2.2-4.2); Glucose 108 mg/dL (74-106); Protein, Total 7.6 g/dL (6.4-8.2); Sodium Level 134 mmol/L (136-145)
[2024-07-17 23:41] VITALS: BP 142/96; PULSE 75; RESP 18; O2SAT 95
[2024-07-18] VITALS (8 sets, daily range): BP systolic 105–128; BP diastolic 60–89; PULSE 72–88; RESP 13–17; TEMP 36.6–36.9; O2SAT 95–100; BMI 24.3
--- NOTE | 2024-07-18 00:10 | CT_ITS ---
STUDY: CT ABDOMEN AND PELVIS WITH CONTRAST - URINARY TRACT REASON FOR EXAM: Female, 33 years old. ? Pancreatitis RADIATION DOSAGE (If Supplied By Facility): CTDIvol = ( 7.45 ) mGy, DLP = ( 403.94 ) mGycm TECHNIQUE: IV 100mL Isovue-370 was administered. Transaxial images were obtained from the dome of the diaphragm to the symphysis pubis in the arterial, nephrographic and excretory phases. Multiplanar coronal and sagittal images were reformatted. The protocol utilizes one or more of the following dose reduction techniques: automated exposure control, adjustment of mA and/or kV according to patient size,and/or use of iterative reconstruction technique. COMPARISON: No relevant prior comparison study available FINDINGS: The visualized lung bases are unremarkable. The visualized portions of the heart are within normal limits. Normal liver. There are surgical clips in the gallbladder fossa consistent with a prior cholecystectomy. Normal spleen. There is diffuse enlargement of the pancreas with marge-pancreatic edema suggesting acute pancreatitis. There is stable cystic lesion in the body of the pancreas measures 1.2 cm may represent a pseudocyst was not present on the study from 01/12/2024, it has not significantly changed since 03/27/2024. Normal bilateral adrenal glands. Normal visualized stomach. Normal small intestine. Wall thickening in the ascending colon suggesting colitis. The appendix is visualized and appears normal. Normal abdominal aorta. No retroperitoneal adenopathy. Normal right kidney. Normal left kidney. Normal urinary bladder. Normal abdominal wall. Normal osseous structures. CT/Abdomen/Pelvis W IV Cont ONLY IMPRESSION: There is stable cystic lesion in the body of the pancreas measures 1.2 cm may represent a pseudocyst was not present on the study from 01/12/2024, it has not significantly changed since 03/27/2024. Wall thickening in the ascending colon suggesting colitis. Electronically Signed: Delma Frederick MD at 2:11 EST ,
[2024-07-18] MEDS: 0.9% Normal Saline (1000mL) 1,000 ML 999 ML IV (00:19)
[2024-07-18] MEDS: Ondansetron 4 MG/2 ML Vial IV (00:20)
[2024-07-18] MEDS: HYDROmorphone 1 MG/ML Syringe IV ×8 (00:20→20:39)
[2024-07-18 00:30] LABS: Mucous, Urine 0 SEEN /hpf (<or=2+); Red Blood Cells-Urine 0 SEEN /hpf (0-5)
[2024-07-18 00:31] LABS: Color, Urine Yellow (Yellow); Glucose, Dipstick Normal (Normal); Ketone-Dipstick 5 mg/dl (Negative); Leukocyte Esterase-Dipstick 25 /ul (Negative); Nitrite-Dipstick Negative (Negative); Occult Blood-Urine 10 /ul (Negative); Protein-Dipstick 30 mg/dl (Negative); Specific Gravity, Urine 1.025 (1.002-1.030); Urine Clarity Clear (Clear); Urine Urobilinogen 1 mg/dl (Normal)
[2024-07-18 00:40] LABS: Lipase 761 U/L (13-75)
[2024-07-18 00:43] LABS: Urine Bilirubin Dipstick 1 mg/dL (Negative)
[2024-07-18 00:46] LABS: Bacteria 3+ /hpf (None Seen); Squamous Epithelial Cells - UA 10-25 SEEN /hpf (5-10); White Blood Cells 0-5 SEEN /hpf (0-5)
--- NOTE | 2024-07-18 02:56 | PCM.HP.STD ---
HPI - General General Date of Admission: 07/18/24 Date of Service: 07/18/24 Chief Complaint: Abdominal Pain HPI Narrative FEROZ CHEEK, is a 33 F who presented to the emergency department at which time a hospital on 07/17/2020 for complaining of abdominal pain in the epigastrium that radiates to her back that started early on Wednesday morning. She stated she started with what she felt to be a stomach virus and included nausea vomiting and diarrhea on late Wednesday early Wednesday and progressively got worse to the point where she developed epigastric abdominal pain that radiated to her back consistent with previous episodes of pancreatitis. Given her pain was persistent and her p.o. intake and poor she elected to present to the emergency department. She does have a known history of chronic pancreatitis with pancreatic pseudocyst and follows with Dr. Miller as an outpatient. Her last admission here was late in April of this past year at which time she was admitted for acute on chronic pancreatitis as well. She did have choledocholithiasis on ERCP in February of this past year and had a single localized biliary stricture in the lower third of the main bile duct and a stent was placed at that time. Vital signs on presentation showed temperature 97.9, heart rate 101, respiratory 18, blood pressure 127/98 and pulse ox was 97% on room air. CBC shows a mild leukocytosis with a white count of 13.2 and a mild left shift with a 73.2% neutrophilia. Chemistry panel shows mild hyponatremia and a serum creatinine and BUN above her baseline at 12 and 0.73 respectively. Baseline she appears to run with a serum creatinine between 0.4 and 0.6. Her liver functions are overall unremarkable other than mild elevation of alk phos at 163. Lipase is elevated at 761. test was negative. Urine shows a concentrated specific gravity at 1.025, positive ketones but not consistent with infection. CT of the abdomen pelvis showed surgical clips in the gallbladder fossa diffuse enlargement of the pancreas with peripancreatic edema suggestive of acute pancreatitis and a stable cystic lesion in the body of the pancreas that is 1.2 cm and not changed from previous studies as well as wall thickening in the ascending colon suggestive of colitis. Patient was given aggressive IV fluids, pain medicine and antiemetics in the emergency department and given her meeting all criteria for acute pancreatitis request for admission was made. [facility] Medical History Acute pancreatitis Cannabis use disorder Choledocholithiasis Anemia Tobacco use Pancreatitis IBS (irritable bowel syndrome) Home Medications ?Medication ?Instructions ?Recorded ?Last Taken ?Type Lactobacillus acidophilus 500 500 mmu cells PO BID [facility] 01/12/24 01/12/24 History million cell capsule albuterol sulfate 90 mcg/actuation 1 - 2 puff inhalation Q6H PRN 01/12/24 Unknown History aerosol inhaler ASTHMA omeprazole 40 mg capsule,delayed 40 mg PO DAILY GERD 30 days #30 01/15/24 Unknown Rx release caps sennosides 8.6 mg-docusate sodium 1 tab-cap PO BID 03/26/24 Unknown History 50 mg capsule (Senna Plus) prochlorperazine maleate 10 mg 10 mg PO Q6H PRN nausea and 03/28/24 Unknown Rx tablet (Compazine) vomiting #30 tabs sucralfate 100 mg/mL oral 10 ml PO TID #1,000 mL 03/31/24 Unknown Rx suspension dicyclomine 20 mg tablet 20 mg PO TID #90 TABLETS 06/07/24 Unknown Rx docusate sodium 100 mg capsule 100 mg PO DAILY #30 caps 06/29/24 Unknown Rx folic acid 1 mg tablet 1 mg PO DAILY SUPPLEMENT #30 tabs 07/14/24 Unknown Rx thiamine HCl (vitamin B1) 100 mg 100 mg PO DAILY SUPPLEMENT #30 07/14/24 Unknown Rx tablet tabs tramadol 100 mg tablet 100 mg PO Q8H PRN pain #60 tabs 07/14/24 Unknown Rx acetaminophen 500 mg tablet 1,000 mg PO Q8 PRN pain 07/18/24 Unknown History cyclobenzaprine 5 mg tablet 5 mg PO DAILY 07/18/24 Unknown History magnesium 200 mg tablet 200 mg PO BID 07/18/24 Unknown History naloxone 4 mg/actuation nasal spray 1 spray intranasal X1 07/18/24 Unknown History Allergy/AdvReac Type Severity Reaction Status Date / Time codeine AdvReac Intermediate Vomiting Verified 07/17/24 21:43 Family History Mother Diabetes Asthma Thyroid disorder IBS (irritable bowel syndrome) Father Diabetes Hypertension Surgical History Previous section S/P ERCP History of cholecystectomy Social History household members: significant other and children Smoking Status: Light Smoker (<10/day) alcohol intake: never details: no alcohol substance use type: marijuana ROS Constitutional Constitutional: Reports anorexia and weakness; Denies change in weight, chills, fatigue, fever(s), malaise, night sweats or other Eyes Eyes: Denies blurry vision, change in eye color, change in vision, discharge from eye(s), double vision, erythema, eye pain, loss of vision or other ENT HEENT: Denies abnormal hearing, dysphagia, ear pain, epistaxis, headache(s), hearing loss, nasal congestion, nasal discharge, post nasal drip, sinus pressure, sore throat or other Cardiovascular Cardiovascular: Denies chest pain, claudication, dyspnea on exertion, edema, lightheadedness, orthopnea, palpitations, paroxysmal nocturnal dyspnea, rapid heart rate, syncope or other Respiratory/Chest Respiratory/Chest: Denies cough, dyspnea, excessive phlegm production, hemoptysis, productive cough, shortness of breath at rest, shortness of breath with exertion, wheezing or other Gastrointestinal Gastrointestinal: Reports abdominal pain, loose stools, nausea and vomiting; Denies coffee ground emesis, constipation, diarrhea, dyspepsia, hematemesis, hematochezia, melena or other Genitourinary Genitourinary: Reports other Details: Decreased urine output ; Denies burning urination, difficulty urinating, dysuria, hematuria, nocturia, urinary frequency, urinary hesitancy, urinary incontinence or urinary urgency Musculoskeletal Musculoskeletal: Reports back pain; Denies arthralgias, joint pain, joint stiffness, joint swelling, myalgias, neck pain or other Neurologic Neurologic: Denies abnormal gait, abnormal speech, confusion, disequilibrium, dizziness, focal weakness, headache(s), numbness, paresthesias, seizure-like activity, seizures, syncope, tingling, tremor(s) or other Psychiatric Psychiatric: Denies anxiety, depression, homicidal ideation, suicidal ideation or other Endocrine Endocrinology: Denies change in body appearance, cold intolerance, excessive sweating, heat intolerance, polydipsia, polyuria or other Hematologic/Lymphatic Hematologic/Lymphatic: Denies anemia, easy bleeding, easy bruising, lymphadenopathy or other Allergic/Immunologic Allergic/Immunologic: Denies rhinitis, hives, eczemia, asthma or other Vital Signs Vital Signs Vital Signs: 07/17/24 21:42 07/17/24 23:41 07/18/24 01:00 Temperature 97.9 F Temperature Source Oral Pulse Rate 101 H 75 88 Respiratory Rate 18 18 16 Blood Pressure 127/98 H 142/96 H 106/68 Blood Pressure Mean 107 111 80 Pulse Ox 97 95 97 Oxygen Delivery Method Room Air Room Air Room Air 07/18/24 02:51 Temperature 98.5 F Temperature Source Pulse Rate 78 Respiratory Rate 16 Blood Pressure 128/89 H Blood Pressure Mean 102 Pulse Ox 97 Oxygen Delivery Method Weight Weight: 58.655 kg Body Mass Index (BMI) 23.6 Physical Exam Const alert, oriented x3, no apparent distress and average body habitus; Negative for healthy appearing Constitutional Narrative: Ill-appearing but not toxic appearing younger middle-aged white female, lying in bed, significant other at bedside, patient appears as if she is not feeling well but currently looks comfortable, patient appears older than stated age General Appearance: cooperative HEENT normocephalic, head/scalp atraumatic and hearing grossly normal bilaterally HEENT Narrative: Mucous membranes are dry, Mallampati is 2-3, no thrush Eyes EOMs intact bilaterally and conjunctivae normal Eyes Narrative: No scleral icterus Neck supple Neck Narrative: Trachea midline Resp normal respiratory effort, no retractions, no use of accessory muscles and clear to auscultation bilaterally Auscultation: Negative for rales, rhonchi or wheezes Cardio regular rhythm, S1 normal heart sound, S2 normal heart sound, no murmurs, no rub, no gallops and no clicks Cardio Narrative: Mild tachycardia GI normal to inspection, nondistended, normoactive bowel sounds and soft to palpation GI Narrative: Significant tenderness in the epigastrium radiating to the back, no rebound tenderness, mild guarding Extremity no clubbing, cyanosis or edema Extremity Narrative: Pedal pulses are 2+, radial pulses are 2+ Neuro oriented x3, moves all extremities and no focal motor deficits Speech: speech normal Psych affect normal Psych Narrative: Pleasant, interacts appropriately Results Lab / Micro Data 07/17/24 22:15 07/17/24 22:15 Labs: Laboratory Results - last 24 hr 07/17/24 22:15: WBC 13.2 H, RBC 4.93, Hgb 14.3, Hct 43.3, MCV 87.8, MCH 29.0, MCHC 33.0, RDW Std Deviation 43.4, RDW Coeff of Mercedes 13.4, Plt Count 285, MPV 12.0, Immature Gran % (Auto) 0.500, Neut % (Auto) 73.2 H, Lymph % (Auto) 19.0, [place] % (Auto) 5.2, Eos % (Auto) 1.6, Baso % (Auto) 0.5, Absolute Neuts (auto) 9.6 H, Absolute Lymphs (auto) 2.51, Nucleated RBC % 0, Sodium 134 L, Potassium 4.0, Chloride 100, Carbon Dioxide 27.0, Anion Gap 7, BUN 12, Creatinine 0.73, Estim Creat Clear Calc 87.50, Est GFR (MDRD) Af Amer 119, Est GFR (MDRD) Non-Af 98, BUN/Creatinine Ratio 16.5, Glucose 108 H, Calcium 9.0, Total Bilirubin 0.90, AST 23, ALT 37, Alkaline Phosphatase 163 H, Total Protein 7.6, Albumin 3.5, Globulin 4.1, Albumin/Globulin Ratio 0.9, Lipase 761 H, Serum , Qual NEGATIVE 07/18/24 00:19: Urine Color Yellow, Urine Clarity Clear, Urine pH 6.0, Ur Specific [place] 1.025, Urine Protein 30 H, Urine Glucose (UA) Normal, Urine Ketones 5 H, Urine Occult Blood 10 H, Urine Nitrite Negative, Urine Bilirubin 1 H, Urine Urobilinogen 1 H, Ur Leukocyte Esterase 25 H, Urine RBC 0 SEEN, Urine WBC 0-5 SEEN, Ur Squamous Epith Cells 10-25 SEEN, Urine Bacteria 3+, Urine Mucus 0 SEEN Imaging Radiology Impression Abdomen/Pelvis CT 07/18/24 00:10 IMPRESSION: There is stable cystic lesion in the body of the pancreas measures 1.2 cm may represent a pseudocyst was not present on the study from 01/12/2024, it has not significantly changed since 03/27/2024. Wall thickening in the ascending colon suggesting colitis. Electronically Signed: Delma Frederick MD at 2:11 EST , Assessment & Plan Assessment/Plan (1) Leukocytosis: (2) Loose stools: (3) Acute pancreatitis: PLAN: Plan Acute on chronic pancreatitis -Imaging shows acute pancreatitis with chronic pseudocyst -N.p.o. except for sips and chips and p.o. meds -Aggressive hydration with normal saline at 200 cc/h ordered for 4 L--> will then need to be reevaluated with fluid restriction -As needed Toradol -As needed Dilaudid -Antiemetics as needed -Gastroenterology consult as patient does have a history of acute on chronic pancreatitis and follows with Dr. Miller -Dr. Miller notified via text of consult Leukocytosis -Highly suspect this is related to hemoconcentration -UA is consistent with concentrated urine -Aggressive IV fluids -Recheck in a.m. Nausea/vomiting/loose stool -Possible gastroenteritis versus related to her pancreatitis -Will check stool study for C. difficile and enteric panel -Treatment as above GERD -Hold home PPI -IV Protonix 40 mg daily History of choledocholithiasis with biliary stricture -Follows with gastroenterology -Consult pending -May need to consider repeat MRCP depending on clinical course but will leave up to GI History of IBS -Continue home bowel regimen Cannabis use -Recommend cessation Chronic pain -Hold home Flexeril -Hold home Ultram Tobacco abuse -Recommend cessation -Patient smokes about a quarter of a pack a day -7 mcg nicotine patch available DVT prophylaxis -Subcu Lovenox 40 daily CODE STATUS Full code Charges/Coding Visit Charges Inpatient E&M: 17889 Init Hosp L2
--- NOTE | 2024-07-18 02:58 | EX.ED.DYSGE1 ---
HPI History of Present Illness Chief Complaint: Abd Pain Informant: patient and spouse/S.O. Narrative Narrative: Patient is a 33-year-old female with past medical history of choledocholithiasis pancreatitis and IBS. She states that over the past 4 to 5 days she has had bouts of nausea vomiting and diarrhea. She states the symptoms were resolving but then yesterday into today she developed some midepigastric abdominal pain. She states the pain has slowly worsened and is not responding to lioh-yea-mnzyegy medication. She states this feels similar nature to her previous bouts of pancreatitis and secondary to concern for this presents for evaluation [facility] Medical History (Updated 07/18/24 @ 05:[address] Mario Shepherd, DO) Restless legs Anxiety Depression Asthma Migraines Cannabis use disorder Tobacco use Acute pancreatitis Choledocholithiasis Anemia Pancreatitis IBS (irritable bowel syndrome) Home Medications ?Medication ?Instructions ?Recorded ?Last Taken ?Type Lactobacillus acidophilus 500 500 mmu cells PO BID [facility] 01/12/24 01/12/24 History million cell capsule albuterol sulfate 90 mcg/actuation 1 - 2 puff inhalation Q6H PRN 01/12/24 Unknown History aerosol inhaler ASTHMA omeprazole 40 mg capsule,delayed 40 mg PO DAILY GERD 30 days #30 01/15/24 Unknown Rx release caps sennosides 8.6 mg-docusate sodium 1 tab-cap PO BID 03/26/24 Unknown History 50 mg capsule (Senna Plus) prochlorperazine maleate 10 mg 10 mg PO Q6H PRN nausea and 03/28/24 Unknown Rx tablet (Compazine) vomiting #30 tabs sucralfate 100 mg/mL oral 10 ml PO TID #1,000 mL 03/31/24 Unknown Rx suspension dicyclomine 20 mg tablet 20 mg PO TID #90 TABLETS 06/07/24 Unknown Rx docusate sodium 100 mg capsule 100 mg PO DAILY #30 caps 06/29/24 Unknown Rx folic acid 1 mg tablet 1 mg PO DAILY SUPPLEMENT #30 tabs 07/14/24 Unknown Rx thiamine HCl (vitamin B1) 100 mg 100 mg PO DAILY SUPPLEMENT #30 07/14/24 Unknown Rx tablet tabs tramadol 100 mg tablet 100 mg PO Q8H PRN pain #60 tabs 07/14/24 Unknown Rx acetaminophen 500 mg tablet 1,000 mg PO Q8 PRN pain 07/18/24 Unknown History cyclobenzaprine 5 mg tablet 5 mg PO DAILY 07/18/24 Unknown History magnesium 200 mg tablet 200 mg PO BID 07/18/24 Unknown History naloxone 4 mg/actuation nasal spray 1 spray intranasal X1 07/18/24 Unknown History Allergy/AdvReac Type Severity Reaction Status Date / Time codeine AdvReac Intermediate Vomiting Verified 07/17/24 21:43 Family History Mother Diabetes Asthma Thyroid disorder IBS (irritable bowel syndrome) Father Diabetes Hypertension Surgical History Previous section S/P ERCP History of cholecystectomy Social History household members: significant other and children Smoking Status: Light Smoker (<10/day) alcohol intake: never details: no alcohol substance use type: marijuana ROS ROS ED Constitutional Constitutional ED: Denies chills or fever(s) Eyes Eyes: Denies change in vision ENT ENT ED: Denies sore throat Cardiovascular Cardiovascular: Denies chest pain Respiratory/Chest Respiratory/Chest: Denies cough or dyspnea Gastrointestinal Gastrointestinal: Reports abdominal pain, diarrhea and nausea; Denies vomiting Genitourinary Genitourinary ED: Denies dysuria Musculoskeletal Musculoskeletal: Denies myalgias Integumentary Denies rash Neurologic Neurologic: Denies headache(s) Hematologic/Lymphatic Hematologic/Lymphatic: Denies easy bleeding or easy bruising EXAM Physical Exam Const Vital Signs: 07/17/24 21:42 07/17/24 23:41 07/18/24 01:00 Temperature 97.9 F Temperature Source Oral Pulse Rate 101 H 75 88 Respiratory Rate 18 18 16 Blood Pressure 127/98 H 142/96 H 106/68 Blood Pressure Mean 107 111 80 Pulse Ox 97 95 97 Oxygen Delivery Method Room Air Room Air Room Air 07/18/24 02:51 Temperature 98.5 F Temperature Source Pulse Rate 78 Respiratory Rate 16 Blood Pressure 128/89 H Blood Pressure Mean 102 Pulse Ox 97 Oxygen Delivery Method Positive well nourished and well developed General Appearance ED: well developed; Negative for pallor HEENT Reports dry mucous membranes HEENT Narrative: Mucous membranes are dry and tacky No tongue or lip swelling no oral lesions no airway edema or compromise No secondary findings in the posterior pharynx to suggest infection Mouth ED: Yes dry mucous membranes Mouth: dry mucous membranes Eyes PERRL and EOMs intact bilaterally General Eye ED: Negative for scleral icterus Neck supple Neck Narrative: No nuchal rigidity or meningeal signs noted Resp normal respiratory effort and clear to auscultation bilaterally Cardio regular rate and regular rhythm Rate: other Other Details: Heart is regular rate and rhythm without murmurs rubs or gallop Radial and carotid pulses are equal and symmetric GI non-distended and no masses GI Narrative: Abdomen is soft and nondistended with normal active bowel sounds Patient has pain with palpation mainly in the midepigastric region with voluntary guarding at the site No pulsatile mass or fluid wave No rigidity or peritoneal signs Auscultation: normoactive bowel sounds Palpation: soft Extremity normal to inspection Neuro oriented x3, CN's II-XII intact bilaterally and no sensory deficits noted Sensorium / Orientation: alert Motor Exam: strength 5/5 throughout Psych mental status grossly normal Skin no rashes or lesions noted General Skin Exam: Negative for jaundice or pallor MDM MDM MDM Narrative Medical decision making narrative: Patient arrived to the ER with stable vitals. She reported midepigastric abdominal pain that has been worsening over the past 24 hours. She reports her gallbladder previously removed. She does admit to recent viral stomach infection causing nausea vomiting diarrhea. With pain in the midepigastric region there is concern for acute pancreatitis versus transverse colitis and even though her gallbladder is removed there is still concern for choledocholithiasis as she has had this in the past. Patient blood work was obtained which shows mild leukocytosis at 13.2. However her liver enzymes and total bilirubin are normal going against a choledocholithiasis. Lipase is elevated at approximately 760 which correlates with pancreatitis. Secondary to this a CT with IV contrast obtained which did show a cyst on the pancreas as well as inflammatory changes consistent with acute pancreatitis. Based on the patient's leukocytosis pancreatic inflammation and persistent pain do not feel she is safe for discharge home and therefore discussed the case with the hospitalist. Hospitalist agrees and will accept the patient to the medical floor for continued care. History & Record Review Discussion w/independent historian: Patient and Significant other Lab Data Attestation: I reviewed the patient's lab results. Labs: Laboratory Results - last 24 hr 12/30/24 12/31/24 22:15 00:19 WBC 13.2 H RBC 4.93 Hgb 14.3 Hct 43.3 MCV 87.8 MCH 29.0 MCHC 33.0 RDW Std Deviation 43.4 RDW Coeff of Mercedes 13.4 Plt Count 285 MPV 12.0 Immature Gran % (Auto) 0.500 Neut % (Auto) 73.2 H Lymph % (Auto) 19.0 [place] % (Auto) 5.2 Eos % (Auto) 1.6 Baso % (Auto) 0.5 Absolute Neuts (auto) 9.6 H Absolute Lymphs (auto) 2.51 Nucleated RBC % 0 Sodium 134 L Potassium 4.0 Chloride 100 Carbon Dioxide 27.0 Anion Gap 7 BUN 12 Creatinine 0.73 Estim Creat Clear Calc 87.50 Est GFR (MDRD) Af Amer 119 Est GFR (MDRD) Non-Af 98 BUN/Creatinine Ratio 16.5 Glucose 108 H Calcium 9.0 Total Bilirubin 0.90 AST 23 ALT 37 Alkaline Phosphatase 163 H Total Protein 7.6 Albumin 3.5 Globulin 4.1 Albumin/Globulin Ratio 0.9 Lipase 761 H Serum , Qual NEGATIVE Urine Color Yellow Urine Clarity Clear Urine pH 6.0 Ur Specific [place] 1.025 Urine Protein 30 H Urine Glucose (UA) Normal Urine Ketones 5 H Urine Occult Blood 10 H Urine Nitrite Negative Urine Bilirubin 1 H Urine Urobilinogen 1 H Ur Leukocyte Esterase 25 H Urine RBC 0 SEEN Urine WBC 0-5 SEEN Ur Squamous Epith Cells 10-25 SEEN Urine Bacteria 3+ Urine Mucus 0 SEEN Radiography Diagnostic Testing: Clinical Impression(s) from Imaging Studies Abdomen/Pelvis CT 07/18/24 00:10 IMPRESSION: There is stable cystic lesion in the body of the pancreas measures 1.2 cm may represent a pseudocyst was not present on the study from 01/12/2024, it has not significantly changed since 03/27/2024. Wall thickening in the ascending colon suggesting colitis. Electronically Signed: Delma Frederick MD at 2:11 EST , Management Discussion w/another healthcare provider: Hospitalist Discharge Plan Dx/Rx/DC Orders Clinical Impression: Acute pancreatitis, Pseudocyst of pancreas, Nausea & vomiting, Loose stools Disposition Disposition: Acute Care Hospital [facility] Discharge Date/Time: 07/18/24 03:24
[2024-07-18] MEDS: 0.9% Normal Saline (1000mL) 1,000 ML 250 ML IV ×4 (03:49→17:27)
[2024-07-18] MEDS: Dicyclomine 10 MG Capsule 20 MG PO ×3 (05:07→20:41)
[2024-07-18] MEDS: Sucralfate 1 GM Tablet PO ×3 (06:35→17:35)
[2024-07-18 06:39] LABS: Absolute Lymphocyte Count 2.57 X10^3/uL (0.83-4.51); Absolute Neutrophil Count 4.9 X10^3/uL (2.0-7.7); Basophil# 0.03 X10^3/uL; Basophil% 0.4 % (0-1); Eosinophil# 0.18 X10^3/uL; Eosinophils% 2.2 % (0-5); Hematocrit 36.8 % (37-47); Hemoglobin 11.8 g/dL (12.0-15.0); Lymphocyte # 2.57 X10^3/ul (0.83-4.51); Lymphocyte % 31.4 % (19-41); Mean Corp Hgb Conc 32.1 g/dL (32-36); Mean Corpuscular Hgb 28.5 pg (27.0-32.0); Mean Corpuscular Volume 88.9 fL (81-99); Mean Platelet Vol. 12.3 fl (6.2-12.0); Monocyte# 0.52 X10^3/uL; Monocyte% 6.3 % (0-10); NRBC Flagged by Analyzer 0 % (0-5); Neutrophil # 4.85 X10^3/uL (2.7-7.7); Neutrophil % 59.2 % (47-70); Platelet Count 219 K/mm3 (150-450); RBC Distribution Width CV 13.3 % (11.6-14.6); RBC Distribution Width SD 43.7 fl (35.1-43.9); Red Blood Count 4.14 M/mm3 (4.2-5.4); White Blood Count 8.2 K/mm3 (4.4-11.0)
[2024-07-18 07:09] LABS: ALB/GLOB Ratio 0.9 RATIO (0.9-2.4); AST(SGOT) 14 U/L (15-37); Alanine Aminotransfer ALT/SGPT 25 U/L (13-56); Albumin, Serum 2.8 g/dL (3.2-5.0); Alkaline Phosphatase 127 U/L (45-117); Anion Gap 4 (5-15); BUN 9 mg/dL (7-18); BUN/Creat Ratio 16.3 RATIO (10-20); Calcium,Total 8.3 mg/dL (8.5-10.1); Chloride 106 mmol/L (98-107); Creatinine, Serum 0.55 mg/dL (0.55-1.02); EST Glomerular Filtration Rate 135 mL/min (>60); Est Glom Filt Rate - Afr Amer 163 mL/min (>60); Estimated Creatinine Clearance 120.49 ml/min; Globulin 3.2 g/dL (2.2-4.2); Glucose 100 mg/dL (74-106); Magnesium 1.7 mg/dL (1.6-2.6); Phosphorus 3.7 mg/dL (2.5-4.9); Potassium 3.6 mmol/L (3.5-5.1); Sodium Level 136 mmol/L (136-145)
[2024-07-18] MEDS: 0.9% Saline Lock 10 ML Syringe IV ×4 (08:21→17:28)
[2024-07-18] MEDS: Pantoprazole Sodium 40 MG in 0.9% Normal Saline (100mL MB+) 100 ML 330 MG IV (08:21)
[2024-07-18] MEDS: Senna/Docusate Sodium 1 Tablet PO (08:22)
[2024-07-18] MEDS: Enoxaparin 40 MG/0.4 ML Syringe SC (08:22)
[2024-07-18] MEDS: Folic Acid 1 MG Tablet PO (08:22)
[2024-07-18] MEDS: Lactobacillis Acidophilus 1 CAP PO ×2 (08:23→20:41)
[2024-07-18] MEDS: Magnesium Chloride 64 MG Delay Rel.Tablet PO ×2 (08:24→20:42)
[2024-07-18] MEDS: Thiamine Hydrochloride 100 MG Tablet PO (08:25)
--- NOTE | 2024-07-18 13:30 | CASEMGMT ---
RN CM Face to Face with patient for initial transition planning/care coordination assessment. RN CM introduced self and role at [facility]. Patient lying in bed, alert and oriented. Patient willing to participate in assessment and is able to answer all questions appropriately. Care providers, pharmacy, and demographics verified. Strata: 2 PCP: Karen Specialists: Kenn CALDWELL Preferred Pharmacy: [facility] Insurance: [facility] Prescription Benefit: yes Living Will/HPOA: none LNOK: mother Living Arrangements: Patient lives with boyfriend and children in a Mobile home with 5 steps and railing. Patient is independent at home. Transportation: mother DME/HHC: Patient has grab bars and nebulizer at home. No previous HHC or SNF Patient wishes to discharge home, denies need for home health at this time. Patient states she has no further needs or concerns at this time. CM to follow for discharge planning needs that may arise. Disposition Plan: Patient to discharge home with family support and follow-up plans in place. Renetta MILLER, RN, CM
[2024-07-18] MEDS: Ketorolac 30 MG/ML Syringe IV (19:46)
[2024-07-19] MEDS: 0.9% Saline Lock 10 ML Syringe IV ×7 (00:34→21:37)
[2024-07-19] MEDS: HYDROmorphone 1 MG/ML Syringe IV ×5 (00:34→21:37)
[2024-07-19] MEDS: Ketorolac 30 MG/ML Syringe IV ×3 (01:51→15:56)
[2024-07-19 03:45] VITALS: BMI 24.4
[2024-07-19 05:16] LABS: Absolute Neutrophil Count 6.1 X10^3/uL (2.0-7.7); Basophil# 0.03 X10^3/uL; Basophil% 0.3 % (0-1); Eosinophils% 1.1 % (0-5); Hematocrit 35.8 % (37-47); Hemoglobin 11.9 g/dL (12.0-15.0); Lymphocyte % 25.7 % (19-41); Mean Corp Hgb Conc 33.2 g/dL (32-36); Mean Corpuscular Hgb 29.3 pg (27.0-32.0); Mean Corpuscular Volume 88.2 fL (81-99); Mean Platelet Vol. 13.2 fl (6.2-12.0); Monocyte# 0.38 X10^3/uL; Monocyte% 4.3 % (0-10); NRBC Flagged by Analyzer 0 % (0-5); Neutrophil # 6.07 X10^3/uL (2.7-7.7); Neutrophil % 67.9 % (47-70); Platelet Count 203 K/mm3 (150-450); RBC Distribution Width CV 13.2 % (11.6-14.6); RBC Distribution Width SD 42.8 fl (35.1-43.9); Red Blood Count 4.06 M/mm3 (4.2-5.4); White Blood Count 8.9 K/mm3 (4.4-11.0)
[2024-07-19 05:48] LABS: ALB/GLOB Ratio 0.8 RATIO (0.9-2.4); AST(SGOT) 11 U/L (15-37); Alanine Aminotransfer ALT/SGPT 16 U/L (13-56); Albumin, Serum 2.6 g/dL (3.2-5.0); Alkaline Phosphatase 132 U/L (45-117); Anion Gap 5 (5-15); BUN 4 mg/dL (7-18); BUN/Creat Ratio 7.5 RATIO (10-20); Calcium,Total 8.4 mg/dL (8.5-10.1); Chloride 111 mmol/L (98-107); Creatinine, Serum 0.53 mg/dL (0.55-1.02); EST Glomerular Filtration Rate 141 mL/min (>60); Est Glom Filt Rate - Afr Amer 170 mL/min (>60); Estimated Creatinine Clearance 125.48 ml/min; Globulin 3.2 g/dL (2.2-4.2); Glucose 146 mg/dL (74-106); Potassium 3.3 mmol/L (3.5-5.1); Protein, Total 5.8 g/dL (6.4-8.2); Sodium Level 138 mmol/L (136-145)
[2024-07-19 06:00] VITALS: BP 103/70; PULSE 92; RESP 16; TEMP 36.8; O2SAT 98
[2024-07-19] MEDS: Dicyclomine 10 MG Capsule 20 MG PO ×3 (06:25→21:42)
[2024-07-19] MEDS: Sucralfate 1 GM Tablet PO ×3 (06:25→15:54)
[2024-07-19] MEDS: Folic Acid 1 MG Tablet PO (08:48)
[2024-07-19] MEDS: Pantoprazole Sodium 40 MG in 0.9% Normal Saline (100mL MB+) 100 ML 330 MG IV (08:56)
[2024-07-19] MEDS: Docusate Sodium 100 MG Capsule PO (08:57)
[2024-07-19] MEDS: Magnesium Chloride 64 MG Delay Rel.Tablet PO ×2 (08:57→21:42)
[2024-07-19] MEDS: Enoxaparin 40 MG/0.4 ML Syringe SC (08:58)
[2024-07-19] MEDS: Lactobacillis Acidophilus 1 CAP PO ×2 (08:59→21:42)
[2024-07-19] MEDS: Thiamine Hydrochloride 100 MG Tablet PO (09:00)
[2024-07-19] MEDS: Senna/Docusate Sodium 1 Tablet PO ×2 (09:00→21:43)
[2024-07-19 11:18] VITALS: BP 118/54; PULSE 69; RESP 16; TEMP 36.5; O2SAT 97
--- NOTE | 2024-07-19 12:54 | PCM.PN.HOSP ---
Subjective Subjective Doing well, still having some abdominal pain Objective Data Objective Data Vital Signs: Vital Signs Temp Pulse Resp BP Pulse Ox O2 Del Method 97.7 F L 69 16 118/54 L 97 Room Air 07/19/24 11:18 07/19/24 11:18 07/19/24 11:18 07/19/24 11:18 07/19/24 11:18 07/19/24 11:18 Oxygen Delivery Method Room Air Weight: 129 lb 6.581 oz Body Mass Index (BMI) 24.4 Intake & Output: Intake and Output for Last 24 Hours 07/18/24 07/19/24 07/20/24 03:59 03:59 03:59 Intake Total 1000 / 1000 4110 / 4110 110 / 110 Balance 1000 / 1000 4110 / 4110 110 / 110 Lab / Micro Data 07/19/24 04:30 07/19/24 04:30 Labs: Laboratory Results - last 24 hr 07/19/24 04:30: WBC 8.9, RBC 4.06 L, Hgb 11.9 L, Hct 35.8 L, MCV 88.2, MCH 29.3, MCHC 33.2, RDW Std Deviation 42.8, RDW Coeff of Mercedes 13.2, Plt Count 203, MPV 13.2 H, Immature Gran % (Auto) 0.700, Neut % (Auto) 67.9, Lymph % (Auto) 25.7, [place] % (Auto) 4.3, Eos % (Auto) 1.1, Baso % (Auto) 0.3, Absolute Neuts (auto) 6.1, Absolute Lymphs (auto) 2.30, Nucleated RBC % 0, Sodium 138, Potassium 3.3 L, Chloride 111 H, Carbon Dioxide 22.0, Anion Gap 5, BUN 4 L, Creatinine 0.53 L, Estim Creat Clear Calc 125.48, Est GFR (MDRD) Af Amer 170, Est GFR (MDRD) Non-Af 141, BUN/Creatinine Ratio 7.5 L, Glucose 146 H, Calcium 8.4 L, Total Bilirubin 0.60, AST 11 L, ALT 16, Alkaline Phosphatase 132 H, Total Protein 5.8 L, Albumin 2.6 L, Globulin 3.2, Albumin/Globulin Ratio 0.8 L Physical Exam Narrative General: Alert, Oriented x3, Cooperative, No apparent distress HEENT: Atraumatic, PERRLA, EOMI, Normocephalic Oral: Moist Mucosa Neck: Supple, No JVD Lungs: Diminished, Normal air movement, No rhonchi, No wheeze, No rales Cardiovascular: Regular rate, Regular Rhythm, Normal S1, Normal S2, No murmurs Abdomen: Soft, epigastric tenderness to palpation, Non-Distended, No Hepato-splenomegaly Extremities: No edema, Capillary Refill Less than 3 Seconds Skin: No rashes, No breakdown Musculoskeletal: No Tenderness to Palpation of Joints or Extremities Neurological: No focal neurological deficits, Motor Exam 5/5 strength throughout, Sensory exam intact to light touch and pain Psych/Mental Status: Normal Affect, Appropriate Assessment & Plan Assessment/Plan (1) Leukocytosis: (2) Loose stools: (3) Acute pancreatitis: PLAN: Plan 1. Acute on chronic pancreatitis with a history of choledocholithiasis and a biliary stricture/IBS/cannabis use ? Unclear as to the etiology of her pancreatitis ? Will consult GI ? Continue with IV fluids ? Given her continued abdominal pain we will hold off on advancing her diet 2. GERD ? Stable ? Continue with PPI DVT: Lovenox Charges/Coding Visit Charges Inpatient E&M: 62835 Subs Hosp L2
[2024-07-19 14:35] VITALS: PULSE 70
[2024-07-19 15:58] VITALS: BP 143/85; PULSE 76; RESP 16; TEMP 36.9; O2SAT 95
[2024-07-19 16:01] VITALS: O2SAT 100
[2024-07-19] MEDS: Potassium Chloride Oral Tablet 20 MEQ 40 MEQ PO (17:49)
[2024-07-19 21:30] VITALS: BP 110/72; PULSE 86; RESP 16; TEMP 36.9; O2SAT 100
[2024-07-20 00:40] VITALS: BP 111/77
[2024-07-20] MEDS: HYDROmorphone 1 MG/ML Syringe IV ×6 (00:44→23:59)
[2024-07-20] MEDS: 0.9% Saline Lock 10 ML Syringe IV ×7 (00:45→20:30)
[2024-07-20] MEDS: Ketorolac 30 MG/ML Syringe IV ×3 (02:06→21:48)
[2024-07-20 03:45] VITALS: BP 112/74; PULSE 75; RESP 18; TEMP 36.8; O2SAT 100
[2024-07-20] MEDS: Dicyclomine 10 MG Capsule 20 MG PO ×3 (06:37→21:56)
[2024-07-20] MEDS: Sucralfate 1 GM Tablet PO ×3 (06:37→16:09)
[2024-07-20 07:35] VITALS: O2SAT 94
[2024-07-20 08:16] VITALS: BP 103/63; PULSE 74; RESP 18; TEMP 36.6; O2SAT 97
[2024-07-20] MEDS: Enoxaparin 40 MG/0.4 ML Syringe SC (08:20)
[2024-07-20] MEDS: Magnesium Chloride 64 MG Delay Rel.Tablet PO ×2 (08:20→21:56)
[2024-07-20] MEDS: Docusate Sodium 100 MG Capsule PO (08:20)
[2024-07-20] MEDS: Folic Acid 1 MG Tablet PO (08:20)
[2024-07-20] MEDS: Lactobacillis Acidophilus 1 CAP PO ×2 (08:20→21:57)
[2024-07-20] MEDS: Thiamine Hydrochloride 100 MG Tablet PO (08:20)
[2024-07-20] MEDS: Pantoprazole Sodium 40 MG in 0.9% Normal Saline (100mL MB+) 100 ML 330 MG IV (08:21)
[2024-07-20] MEDS: Senna/Docusate Sodium 1 Tablet PO (08:21)
[2024-07-20 08:29] LABS: Absolute Lymphocyte Count 2.53 X10^3/uL (0.83-4.51); Absolute Neutrophil Count 5.4 X10^3/uL (2.0-7.7); Basophil# 0.04 X10^3/uL; Basophil% 0.5 % (0-1); Eosinophil# 0.15 X10^3/uL; Eosinophils% 1.7 % (0-5); Hematocrit 33.9 % (37-47); Hemoglobin 11.2 g/dL (12.0-15.0); Lymphocyte # 2.53 X10^3/ul (0.83-4.51); Lymphocyte % 29.1 % (19-41); Mean Corpuscular Hgb 29.3 pg (27.0-32.0); Mean Corpuscular Volume 88.7 fL (81-99); Mean Platelet Vol. 12.9 fl (6.2-12.0); Monocyte# 0.55 X10^3/uL; Monocyte% 6.3 % (0-10); NRBC Flagged by Analyzer 0 % (0-5); Neutrophil # 5.38 X10^3/uL (2.7-7.7); Neutrophil % 61.9 % (47-70); Platelet Count 216 K/mm3 (150-450); RBC Distribution Width CV 13.5 % (11.6-14.6); RBC Distribution Width SD 43.8 fl (35.1-43.9); Red Blood Count 3.82 M/mm3 (4.2-5.4); White Blood Count 8.7 K/mm3 (4.4-11.0)
--- NOTE | 2024-07-20 08:39 | PCM.PN.HOSP ---
Subjective Subjective Says that her pain is somewhat improved today. Still with epigastric pain no we will trial her on advance diet to clears Objective Data Objective Data Vital Signs: Vital Signs Temp Pulse Resp BP Pulse Ox O2 Del Method 97.9 F 74 18 103/63 97 Room Air 07/20/24 08:16 07/20/24 08:16 07/20/24 08:16 07/20/24 08:16 07/20/24 08:16 07/20/24 08:17 Oxygen Delivery Method Room Air Weight: 129 lb 6.581 oz Body Mass Index (BMI) 24.4 Intake & Output: Intake and Output for Last 24 Hours 07/19/24 07/20/24 07/21/24 03:59 03:59 03:59 Intake Total 4110 / 4110 110 / 110 Balance 4110 / 4110 110 / 110 Lab / Micro Data 07/20/24 07:50 07/19/24 04:30 Labs: Laboratory Results - last 24 hr 07/20/24 07:50: WBC 8.7, RBC 3.82 L, Hgb 11.2 L, Hct 33.9 L, MCV 88.7, MCH 29.3, MCHC 33.0, RDW Std Deviation 43.8, RDW Coeff of Mercedes 13.5, Plt Count 216, MPV 12.9 H, Immature Gran % (Auto) 0.500, Neut % (Auto) 61.9, Lymph % (Auto) 29.1, [place] % (Auto) 6.3, Eos % (Auto) 1.7, Baso % (Auto) 0.5, Absolute Neuts (auto) 5.4, Absolute Lymphs (auto) 2.53, Nucleated RBC % 0 Physical Exam Narrative General: Alert, Oriented x3, Cooperative, No apparent distress HEENT: Atraumatic, PERRLA, EOMI, Normocephalic Oral: Moist Mucosa Neck: Supple, No JVD Lungs: Diminished, Normal air movement, No rhonchi, No wheeze, No rales Cardiovascular: Regular rate, Regular Rhythm, Normal S1, Normal S2, No murmurs Abdomen: Soft, epigastric tenderness to palpation?improved, Non-Distended, No Hepato-splenomegaly Extremities: No edema, Capillary Refill Less than 3 Seconds Skin: No rashes, No breakdown Musculoskeletal: No Tenderness to Palpation of Joints or Extremities Neurological: No focal neurological deficits, Motor Exam 5/5 strength throughout, Sensory exam intact to light touch and pain Psych/Mental Status: Normal Affect, Appropriate Assessment & Plan Assessment/Plan (1) Leukocytosis: (2) Loose stools: (3) Acute pancreatitis: PLAN: Plan 1. Acute on chronic pancreatitis with a history of choledocholithiasis and a biliary stricture/IBS/cannabis use ? Unclear as to the etiology of her pancreatitis ? Will consult GI ? Will advance to a clear liquid diet as her pain is improved slightly ? 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 GERD ? Stable ? Continue with PPI DVT: Lovenox Charges/Coding Visit Charges Inpatient E&M: 54160 Subs Hosp L2
[2024-07-20 09:03] LABS: ALB/GLOB Ratio 0.8 RATIO (0.9-2.4); AST(SGOT) 14 U/L (15-37); Alanine Aminotransfer ALT/SGPT 17 U/L (13-56); Albumin, Serum 2.6 g/dL (3.2-5.0); Alkaline Phosphatase 128 U/L (45-117); Anion Gap 6 (5-15); BUN 6 mg/dL (7-18); BUN/Creat Ratio 12.7 RATIO (10-20); Calcium,Total 8.6 mg/dL (8.5-10.1); Chloride 112 mmol/L (98-107); Creatinine, Serum 0.47 mg/dL (0.55-1.02); EST Glomerular Filtration Rate 162 mL/min (>60); Est Glom Filt Rate - Afr Amer 196 mL/min (>60); Globulin 3.4 g/dL (2.2-4.2); Glucose 94 mg/dL (74-106); Potassium 3.7 mmol/L (3.5-5.1); Sodium Level 140 mmol/L (136-145)
[2024-07-20 14:19] VITALS: BP 93/53; PULSE 60; RESP 18; TEMP 36.2; O2SAT 95
--- NOTE | 2024-07-20 16:56 | EX.PCM.CON.G ---
HPI Consult Data Date of Consult: 07/20/24 HPI Narrative Reason for Consultation: pancreatitis HPI Narrative: FEROZ CHEEK, is a 33-year-old female with history of pancreatitis and pseudocyst of the pancreas as well as IBS, choledocholithiasis (status post cholecystectomy) presenting with nausea, vomiting and epigastric abdominal pain. She stated that over the past 4 to 5 days she has had bouts of nausea vomiting and diarrhea. She states the symptoms were resolving but then yesterday into today she developed some midepigastric abdominal pain. She stated the pain has slowly worsened and is not responding to [id number] medication. CT scan abdomen pelvis in the ED displayed: There is stable cystic lesion in the body of the pancreas measures 1.2 cm may represent a pseudocyst was not present on the study from 01/12/2024, it has not significantly changed since 03/27/2024. Wall thickening in the ascending colon suggesting colitis. She did feel like her prior pancreatitis but worse because of the vomiting which she does not normally have. She is the pain is in her epigastric region radiates to her back and underneath her breast bilaterally. She was admitted last month for acute pancreatitis and discharged on 03/28/2024. CT on 04/11 showed pseudocysts/area of walled off necrosis of the pancreatic body/tail. She was diagnosed with acute recurrent pancreatitis. As an outpatient I anival labs for hereditary pancreatitis after I referred her to [facility] For endoscopic ultrasound. 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 This is often considered a form of hereditary pancreatitis, where the mutated SPINK1 gene disrupts the normal function of a protein that helps regulate digestive enzymes in the pancreas, potentially causing them to become overly active and damage the pancreatic tissue, resulting in recurrent pancreatitis attacks.? [facility] Medical History Restless legs Anxiety Depression Asthma Migraines Cannabis use disorder Tobacco use Acute pancreatitis Choledocholithiasis Anemia Pancreatitis IBS (irritable bowel syndrome) Home Medications ?Medication ?Instructions ?Recorded ?Last Taken ?Type Lactobacillus acidophilus 500 500 mmu cells PO BID [employer] [facility] 01/12/24 01/12/24 History million cell capsule albuterol sulfate 90 mcg/actuation 1 - 2 puff inhalation Q6H PRN 01/12/24 Unknown History aerosol inhaler ASTHMA omeprazole 40 mg capsule,delayed 40 mg PO DAILY GERD 30 days #30 01/15/24 Unknown Rx release caps sennosides 8.6 mg-docusate sodium 1 tab-cap PO BID 03/26/24 Unknown History 50 mg capsule (Senna Plus) prochlorperazine maleate 10 mg 10 mg PO Q6H PRN nausea and 03/28/24 Unknown Rx tablet (Compazine) vomiting #30 tabs sucralfate 100 mg/mL oral 10 ml PO TID #1,000 mL 03/31/24 Unknown Rx suspension dicyclomine 20 mg tablet 20 mg PO TID #90 TABLETS 06/07/24 Unknown Rx docusate sodium 100 mg capsule 100 mg PO DAILY #30 caps 06/29/24 Unknown Rx folic acid 1 mg tablet 1 mg PO DAILY SUPPLEMENT #30 tabs 07/14/24 Unknown Rx thiamine HCl (vitamin B1) 100 mg 100 mg PO DAILY SUPPLEMENT #30 07/14/24 Unknown Rx tablet tabs tramadol 100 mg tablet 100 mg PO Q8H PRN pain #60 tabs 07/14/24 Unknown Rx acetaminophen 500 mg tablet 1,000 mg PO Q8 PRN pain 07/18/24 Unknown History cyclobenzaprine 5 mg tablet 5 mg PO DAILY 07/18/24 Unknown History magnesium 200 mg tablet 200 mg PO BID 07/18/24 Unknown History naloxone 4 mg/actuation nasal spray 1 spray intranasal X1 07/18/24 Unknown History Allergy/AdvReac Type Severity Reaction Status Date / Time codeine AdvReac Intermediate Vomiting Verified 07/17/24 21:43 Family History Mother Diabetes Asthma Thyroid disorder IBS (irritable bowel syndrome) Father Diabetes Hypertension Surgical History Previous section S/P ERCP History of cholecystectomy Social History household members: significant other and children Smoking Status: Light Smoker (<10/day) alcohol intake: never details: no alcohol substance use type: marijuana ROS Constitutional Constitutional: Denies fatigue, fever(s), poor appetite, weight gain or weight loss Gastrointestinal Gastrointestinal: Denies belching, bloating, change in bowel habits, change in stool character, chewing difficulty, coffee ground emesis, constipation, cramping, diarrhea, dyspepsia, dysphagia, early satiety, excessive flatus, fecal incontinence, heartburn, hematemesis, hematochezia, hemorrhoids, loose stools, melena, nausea, odynophagia, rectal bleeding, tenesmus, vomiting or weight changes Physical Exam Const alert, oriented x3, no apparent distress and healthy appearing General Appearance: cooperative GI normal to inspection, nondistended, normoactive bowel sounds, soft to palpation, non-tender and non-distended Percussion: normal to percussion Rectal Exam: deferred Lab / Micro Data 07/20/24 07:50 07/20/24 07:50 Labs: Laboratory Results - last 24 hr 07/20/24 07:50: WBC 8.7, RBC 3.82 L, Hgb 11.2 L, Hct 33.9 L, MCV 88.7, MCH 29.3, MCHC 33.0, RDW Std Deviation 43.8, RDW Coeff of Mercedes 13.5, Plt Count 216, MPV 12.9 H, Immature Gran % (Auto) 0.500, Neut % (Auto) 61.9, Lymph % (Auto) 29.1, [place] % (Auto) 6.3, Eos % (Auto) 1.7, Baso % (Auto) 0.5, Absolute Neuts (auto) 5.4, Absolute Lymphs (auto) 2.53, Nucleated RBC % 0, Sodium 140, Potassium 3.7, Chloride 112 H, Carbon Dioxide 22.0, Anion Gap 6, BUN 6 L, Creatinine 0.47 L, Estim Creat Clear Calc 141.50, Est GFR (MDRD) Af Amer 196, Est GFR (MDRD) Non-Af 162, BUN/Creatinine Ratio 12.7, Glucose 94, Calcium 8.6, Total Bilirubin 0.40, AST 14 L, ALT 17, Alkaline Phosphatase 128 H, Total Protein 6.0 L, Albumin 2.6 L, Globulin 3.4, Albumin/Globulin Ratio 0.8 L Assessment & Plan Assessment/Plan (1) Acute pancreatitis: PLAN: 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 Diagnosis usually involves genetic testing to identify the specific SPINK1 mutation, which is often the [id number] variant.? Typically , patients with SPINK1-associated pancreatitis may experience recurrent episodes of severe abdominal pain, nausea, vomiting, and elevated pancreatic enzymes in blood tests, often starting at a young age.The SPINK1 mutation can also lower the threshold for developing pancreatitis and can be inherited along with the CTFR or CTRC mutations, increasing the patient?s chances of developing pancreatitis. Typically a laparoscopic [place] procedure can be performed, aiming to alleviate symptoms and improve pancreatic drainage. She should also be on pancreatic enzymes with each meal. Recommendation is to continue conservative therapy with pancreatic enzymes and a daily stool softener as the pancreatic enzymes can cause constipation. I have already talked to my office regarding referral to automatic wheel line operator and hepatobiliary pancreatic surgeon. Charges/Coding Visit Charges Inpatient E&M: 30657 Init Hosp L3
[2024-07-20 20:00] VITALS: BP 152/98; PULSE 80; RESP 16; TEMP 36.6; O2SAT 100
[2024-07-21] MEDS: Polyethylene Glycol 3350 17 GM PACKET PO
[2024-07-21] MEDS: Senna/Docusate Sodium 1 Tablet PO ×2 (00:02→07:57)
[2024-07-21 02:00] VITALS: BP 144/75; PULSE 80; RESP 16; TEMP 36.4; O2SAT 100
[2024-07-21] MEDS: HYDROmorphone 1 MG/ML Syringe IV ×3 (03:07→10:13)
[2024-07-21] MEDS: 0.9% Saline Lock 10 ML Syringe IV ×3 (03:10→10:13)
[2024-07-21] MEDS: Ketorolac 30 MG/ML Syringe IV (04:53)
[2024-07-21 06:00] VITALS: BMI 24.8
[2024-07-21] MEDS: Sucralfate 1 GM Tablet PO (06:11)
[2024-07-21] MEDS: Dicyclomine 10 MG Capsule 20 MG PO (06:11)
[2024-07-21 07:50] VITALS: BP 137/79; PULSE 73; RESP 16; TEMP 36.6; O2SAT 99
[2024-07-21] MEDS: Enoxaparin 40 MG/0.4 ML Syringe SC (07:54)
[2024-07-21] MEDS: Folic Acid 1 MG Tablet PO (07:57)
[2024-07-21] MEDS: Lactobacillis Acidophilus 1 CAP PO (07:57)
[2024-07-21] MEDS: Docusate Sodium 100 MG Capsule PO (07:57)
[2024-07-21] MEDS: Magnesium Chloride 64 MG Delay Rel.Tablet PO (07:57)
[2024-07-21] MEDS: Thiamine Hydrochloride 100 MG Tablet PO (07:57)
--- NOTE | 2024-07-21 08:51 | PCM.DC ---
Discharge Instructions Diet Discharge Diet: Low fat / Low cholesterol DC O2, CPAP, BIPAP needs Home O2 Discharge instructions: No Dressing / Incision Discharge Activity: Return to Normal Activity Dressing / Incision Call your doctor if you observe: Fever of 101 or Higher, Shortness of breath, Dizziness, Fainting spells, Swelling in the ankles, Chest pain and Increased palpitations (irregular heartbeat) Follow Up Care Test Results: Test results from this visit will be discussed in further detail at your follow-up appointment, if applicable. Discharge Plan Admission Admit Date/Time: 07/18/24 02:57 Attending Provider: Rehan Reddy Primary Care Provider: Rossi Jones Consulting Providers: Allyson Salazar Discharge Orders/Prescriptions Prescriptions: Continued sucralfate 100 mg/mL suspension 10 ml PO TID Qty: 1000 0RF Senna Plus 8.6-50 mg capsule 1 tab-cap PO BID prochlorperazine maleate [Compazine] 10 mg tablet 10 mg PO Q6H PRN (Reason: nausea and vomiting) Qty: 30 0RF Lactobacillus acidophilus 500 million cell capsule 500 mmu cells PO BID albuterol sulfate 90 mcg/actuation HFA aerosol inhaler 1 - 2 puff inhalation Q6H PRN (Reason: ASTHMA ) omeprazole 40 mg capsule,delayed release(DR/EC) 40 mg PO DAILY 30 Days Qty: 30 0RF magnesium 200 mg tablet 200 mg PO BID cyclobenzaprine 5 mg tablet 5 mg PO DAILY naloxone 4 mg/actuation spray,non-aerosol 1 spray INTRANASAL X1 acetaminophen 500 mg Tablet 1,000 mg PO Q8 PRN (Reason: pain) dicyclomine 20 mg tablet 20 mg PO TID Qty: 90 1RF docusate sodium 100 mg capsule 100 mg PO DAILY Qty: 30 0RF folic acid 1 mg tablet 1 mg PO DAILY Qty: 30 5RF thiamine HCl (vitamin B1) 100 mg tablet 100 mg PO DAILY Qty: 30 5RF tramadol 100 mg tablet 100 mg PO Q8H PRN (Reason: pain) Qty: 60 1RF Referrals / Follow Up: Rossi Jones DO [Primary Care Provider] - Within 1 Week Raj Miller DO [Med Staff - Active Staff] - Within 3 Months Disposition Disposition (needs filled in before D/C Order can be placed): Home, Self Care
--- NOTE | 2024-07-21 08:53 | DS.PCM_ITS ---
Providers Date of Admission: 07/18/24 Primary Care Physician: Dr. Rossi Jones, Consultations 07/18/24 03:31 Consult: Gastroenterology Routine Consulting Provider: [facility] Reason for Consult: Acute on Chronic Pancreatitis EMERGENT Consult: No MD Notified: Yes Date Notified: 07/18/24 Time Notified: 02:58 Method of Notification: Text Reason For Visit: ACUTE ON CHRONIC PANCREATITIS Diagnosis Discharge Diagnosis (1) Acute pancreatitis: Status: Acute Code(s): K85.90 - Acute pancreatitis without necrosis or infection, unspecified Medications at Discharge Home Medications Lactobacillus acidophilus 500 million cell capsule 500 mmu cells PO BID GUT HEALTH 01/12/24 albuterol sulfate 90 mcg/actuation aerosol inhaler 1 - 2 puff inhalation Q6H PRN ASTHMA 01/12/24 omeprazole 40 mg capsule,delayed release 40 mg PO DAILY GERD 30 days #30 caps 01/15/24 sennosides 8.6 mg-docusate sodium 50 mg capsule (Senna Plus) 1 tab-cap PO BID constipation 03/26/24 prochlorperazine maleate 10 mg tablet (Compazine) 10 mg PO Q6H PRN nausea and vomiting #30 tabs 03/28/24 sucralfate 100 mg/mL oral suspension 10 ml PO TID ulcers #1,000 mL 03/31/24 dicyclomine 20 mg tablet 20 mg PO TID irritable bowel #90 TABLETS 06/07/24 docusate sodium 100 mg capsule 100 mg PO DAILY constipation #30 caps 06/29/24 folic acid 1 mg tablet 1 mg PO DAILY SUPPLEMENT #30 tabs 07/14/24 thiamine HCl (vitamin B1) 100 mg tablet 100 mg PO DAILY SUPPLEMENT #30 tabs 07/14/24 tramadol 100 mg tablet 100 mg PO Q8H PRN pain #60 tabs 07/14/24 acetaminophen 500 mg tablet 1,000 mg PO Q8 PRN pain 07/18/24 cyclobenzaprine 5 mg tablet 5 mg PO DAILY muscle spasms 07/18/24 magnesium 200 mg tablet 200 mg PO BID supplement 07/18/24 naloxone 4 mg/actuation nasal spray 1 spray intranasal X1 too much narcotics 07/18/24 Hospital Course Operations None Procedures None Summary of Care Provided Minutes Spent on Discharge: 36 Hospital Course: Per HPI: FEROZ CHEEK, is a 33 F who presented to the emergency department at which time a hospital on 07/17/2020 for complaining of abdominal pain in the epigastrium that radiates to her back that started early on Wednesday morning. She stated she started with what she felt to be a stomach virus and included nausea vomiting and diarrhea on late Wednesday early Wednesday and progressively got worse to the point where she developed epigastric abdominal pain that radiated to her back consistent with previous episodes of pancreatitis. Given her pain was persistent and her p.o. intake and poor she elected to present to the emergency department. She does have a known history of chronic pancreatitis with pancreatic pseudocyst and follows with Dr. Miller as an outpatient. Her last admission here was late in April of this past year at which time she was admitted for acute on chronic pancreatitis as well. She did have choledocholithiasis on ERCP in February of this past year and had a single localized biliary stricture in the lower third of the main bile duct and a stent was placed at that time. Vital signs on presentation showed temperature 97.9, heart rate 101, respiratory 18, blood pressure 127/98 and pulse ox was 97% on room air. CBC shows a mild leukocytosis with a white count of 13.2 and a mild left shift with a 73.2% neutrophilia. Chemistry panel shows mild hyponatremia and a serum creatinine and BUN above her baseline at 12 and 0.73 respectively. Baseline she appears to run with a serum creatinine between 0.4 and 0.6. Her liver functions are overall unremarkable other than mild elevation of alk phos at 163. Lipase is elevated at 761. test was negative. Urine shows a concentrated specific gravity at 1.025, positive ketones but not consistent with infection. CT of the abdomen pelvis showed surgical clips in the gallbladder fossa diffuse enlargement of the pancreas with peripancreatic edema suggestive of acute pancreatitis and a stable cystic lesion in the body of the pancreas that is 1.2 cm and not changed from previous studies as well as wall thickening in the ascending colon suggestive of colitis. Patient was given aggressive IV fluids, pain medicine and antiemetics in the emergency department and given her meeting all criteria for acute pancreatitis request for admission was made. Hospital Course: 1. Acute on chronic pancreatitis secondary to a [place] 1 gene mutation?3 3-year-old female presented to the hospital with recurrent pancreatitis. She has a history of IBS as well as cannabis use and has had a cholecystectomy in the past with previous biliary stricture. Genetic testing done in March demonstrates that she has a missense mutation in [place] 1 which is likely cause of her chronic pancreatitis. Gastroenterology was consulted felt that she would need to follow-up with a research & analytics manager and [place] as well as potentially needing a [place] procedure in the near future to help control her chronic pancreatitis. I discussed with her the possibility for discharge today she expressed understanding there is benefits going home and would like to go home today. Recommend she follow-up with PCP in 3 to 5 days as well as gastroenterology within the next couple of months. We discussed specific dietary requirements including low-fat to help control her pancreatitis if possible. Physical Exam Narrative General: Alert, Oriented x3, Cooperative, No apparent distress HEENT: Atraumatic, PERRLA, EOMI, Normocephalic Oral: Moist Mucosa Neck: Supple, No JVD Lungs: Diminished, Normal air movement, No rhonchi, No wheeze, No rales Cardiovascular: Regular rate, Regular Rhythm, Normal S1, Normal S2, No murmurs Abdomen: Soft, nontender, Non-Distended, No Hepato-splenomegaly Extremities: No edema, Capillary Refill Less than 3 Seconds Skin: No rashes, No breakdown Musculoskeletal: No Tenderness to Palpation of Joints or Extremities Neurological: No focal neurological deficits, Motor Exam 5/5 strength throughout, Sensory exam intact to light touch and pain Psych/Mental Status: Normal Affect, Appropriate Weight / BMI Weight Weight: 131 lb 9.855 oz Body Mass Index (BMI) 24.8 ABG / Lab / Microbiology Data 07/20/24 07:50 07/20/24 07:50 Laboratory: Laboratory Results - last 24 hr 07/20/24 07:50: Sodium 140, Potassium 3.7, Chloride 112 H, Carbon Dioxide 22.0, Anion Gap 6, BUN 6 L, Creatinine 0.47 L, Estim Creat Clear Calc 141.50, Est GFR (MDRD) Af Amer 196, Est GFR (MDRD) Non-Af 162, BUN/Creatinine Ratio 12.7, Glucose 94, Calcium 8.6, Total Bilirubin 0.40, AST 14 L, ALT 17, Alkaline Phosphatase 128 H, Total Protein 6.0 L, Albumin 2.6 L, Globulin 3.4, A lbumin/Globulin Ratio 0.8 L D/C Instructions Discharge Diet: Low fat / Low cholesterol Call your doctor if you observe: Fever of 101 or Higher, Shortness of breath, Dizziness, Fainting spells, Swelling in the ankles, Chest pain and Increased palpitations (irregular heartbeat) DC O2, CPAP, BIPAP Needs Home O2 Discharge instructions: No Meaningful Use Info Meaningful Use Meaningful Use Diagnoses (Choose all that apply): None applicable Ischemic Stroke Statin Dosing Therapy Reference: STATIN DOSE THERAPY REFERENCE: * Patients > 75 years receive moderate or high dose statin therapy. * Patients 75 years or YOUNGER should receive HIGH intensity statin dose unless contraindicated. You will be required to document reason for non-treatment if statin daily dose does not meet guidelines. HIGH DOSE STATIN THERAPY DAILY Atorvastatin > than or = to 40 mg Rosuvastatin > than or = to 20 mg Amlodipine + Atorvastatin > than or = to 2.5/40 mg Ezetimibe + Simvastatin 10/80 mg Simvastatin 80mg Discharge Plan Admission Admit Date/Time: 07/18/24 02:57 Attending Provider: Rehan Reddy Primary Care Provider: Rossi Jones Consulting Providers: Allyson Salazar Discharge Orders/Prescriptions Prescriptions: Continued sucralfate 100 mg/mL suspension 10 ml PO TID Qty: 1000 0RF Senna Plus 8.6-50 mg capsule 1 tab-cap PO BID prochlorperazine maleate [Compazine] 10 mg tablet 10 mg PO Q6H PRN (Reason: nausea and vomiting) Qty: 30 0RF Lactobacillus acidophilus 500 million cell capsule 500 mmu cells PO BID albuterol sulfate 90 mcg/actuation HFA aerosol inhaler 1 - 2 puff inhalation Q6H PRN (Reason: ASTHMA ) omeprazole 40 mg capsule,delayed release(DR/EC) 40 mg PO DAILY 30 Days Qty: 30 0RF magnesium 200 mg tablet 200 mg PO BID cyclobenzaprine 5 mg tablet 5 mg PO DAILY naloxone 4 mg/actuation spray,non-aerosol 1 spray INTRANASAL X1 acetaminophen 500 mg Tablet 1,000 mg PO Q8 PRN (Reason: pain) dicyclomine 20 mg tablet 20 mg PO TID Qty: 90 1RF docusate sodium 100 mg capsule 100 mg PO DAILY Qty: 30 0RF folic acid 1 mg tablet 1 mg PO DAILY Qty: 30 5RF thiamine HCl (vitamin B1) 100 mg tablet 100 mg PO DAILY Qty: 30 5RF tramadol 100 mg tablet 100 mg PO Q8H PRN (Reason: pain) Qty: 60 1RF Referrals / Follow Up: Rossi Jones DO [Primary Care Provider] - 07/24/24 1:30 pm (Appointment is with [employer] Nathaly Monterroso ) Friend,DO Raj [Med Staff - Active Staff] - 08/18/24 10:00 am Disposition Disposition (needs filled in before D/C Order can be placed): Home, Self Care Charges/Coding Visit Charges Inpatient E&M: 70701 Disch Hosp >30min
--- NOTE | 2024-07-21 10:00 | CASEMGMT ---
CHIARA LEYVA NOTE: Pt being discharged. CHIARA LEYVA to room. Pt denies having discharge needs or concerns. Her family is on the way in to take her home. Connor CLARKN CHIARA LEYVA
--- NOTE | 2024-07-21 18:41 | EX.PCM.PN.GI ---
Subjective Subjective Patient doing well today and tolerated diet. Her abdominal pain is only a 2 out of 10 with administration of pancreatic enzymes. Objective Data Objective Data Vital Signs: Vital Signs Temp Pulse Resp BP Pulse Ox O2 Del Method 97.8 F 73 16 137/79 H 99 Room Air 07/21/24 07:50 07/21/24 07:50 07/21/24 07:50 07/21/24 07:50 07/21/24 07:50 07/21/24 07:50 Oxygen Delivery Method Room Air Weight: 131 lb 9.855 oz Body Mass Index (BMI) 24.8 Intake & Output: Intake and Output for Last 24 Hours 07/19/24 07/20/24 07/21/24 23:59 23:59 23:59 Intake Total 110 / 110 110 / 110 Balance 110 / 110 110 / 110 Lab / Micro Data 07/20/24 07:50 07/20/24 07:50 Physical Exam Narrative General: Alert, Oriented x3, Cooperative, No apparent distress HEENT: Atraumatic, PERRLA, EOMI, Normocephalic Oral: Moist Mucosa Neck: Supple, No JVD Lungs: Diminished, Normal air movement, No rhonchi, No wheeze, No rales Cardiovascular: Regular rate, Regular Rhythm, Normal S1, Normal S2, No murmurs Abdomen: Soft, nontender, Non-Distended, No Hepato-splenomegaly Extremities: No edema, Capillary Refill Less than 3 Seconds Skin: No rashes, No breakdown Musculoskeletal: No Tenderness to Palpation of Joints or Extremities Neurological: No focal neurological deficits, Motor Exam 5/5 strength throughout, Sensory exam intact to light touch and pain Psych/Mental Status: Normal Affect, Appropriate Assessment & Plan Assessment/Plan (1) Acute pancreatitis: PLAN: 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 Diagnosis usually involves genetic testing to identify the specific SPINK1 mutation, which is often the [id number] variant.? Typically , patients with SPINK1-associated pancreatitis may experience recurrent episodes of severe abdominal pain, nausea, vomiting, and elevated pancreatic enzymes in blood tests, often starting at a young age.The SPINK1 mutation can also lower the threshold for developing pancreatitis and can be inherited along with the CTFR or CTRC mutations, increasing the patient?s chances of developing pancreatitis. Typically a laparoscopic [place] procedure can be performed, aiming to alleviate symptoms and improve pancreatic drainage. She should also be on pancreatic enzymes with each meal. Recommendation is to continue conservative therapy with pancreatic enzymes and a daily stool softener as the pancreatic enzymes can cause constipation. I have already talked to my office regarding referral to video operator and hepatobiliary pancreatic surgeon. Charges/Coding Visit Charges Inpatient E&M: 67420 Subs Hosp L3
== END 2024-07-21 11:00 | disposition home or self-care (01) | DRG 282 ==
LOC: ED 07-18 02:58 → PCU 07-18 04:14
PROVIDERS: Admitting Provider Internal Medicine; Emergency Provider Emergency Medicine; PCP Family Medicine; Visit Provider Family Medicine
DX: K85.90 Acute pancreatitis without necrosis or infection, unspecified (principal); K86.1 Other chronic pancreatitis; E87.1 Hypo-osmolality and hyponatremia; D72.829 Elevated white blood cell count, unspecified; K21.9 Gastro-esophageal reflux disease without esophagitis; F17.210 Nicotine dependence, cigarettes, uncomplicated; K58.0 Irritable bowel syndrome with diarrhea; K86.2 Cyst of pancreas; Z79.891 Long term (current) use of opiate analgesic; Z90.49 Acquired absence of other specified parts of digestive tract; J45.909 Unspecified asthma, uncomplicated; Z79.899 Other long term (current) drug therapy
CPT/HCPCS: 36415; 74177; 80053; 81001; 83690; 83735; 84100; 84703; 85025; 96361; 96365; 96366; 96372; 96375; 96376; 97802; 97803; 99221; 99283; Q9967; A4216; G0378; J2405

== ENCOUNTER → 2024-08-17 | Outpatient (CLI) | payer MEDICAID, SELFPAY ==
[2024-08-17 12:02] LABS: Absolute Lymphocyte Count 2.92 X10^3/uL (0.83-4.51); Absolute Neutrophil Count 10.8 X10^3/uL (2.0-7.7); Basophil# 0.07 X10^3/uL; Basophil% 0.5 % (0-1); Eosinophil# 0.07 X10^3/uL; Eosinophils% 0.5 % (0-5); Hematocrit 47.8 % (37-47); Hemoglobin 15.2 g/dL (12.0-15.0); Lymphocyte # 2.92 X10^3/ul (0.83-4.51); Lymphocyte % 20.1 % (19-41); Mean Corp Hgb Conc 31.8 g/dL (32-36); Mean Corpuscular Hgb 28.2 pg (27.0-32.0); Mean Corpuscular Volume 88.7 fL (81-99); Mean Platelet Vol. 12.3 fl (6.2-12.0); Monocyte# 0.62 X10^3/uL; Monocyte% 4.3 % (0-10); NRBC Flagged by Analyzer 0 % (0-5); Neutrophil # 10.81 X10^3/uL (2.7-7.7); Neutrophil % 74.3 % (47-70); Platelet Count 391 K/mm3 (150-450); RBC Distribution Width CV 13.7 % (11.6-14.6); RBC Distribution Width SD 44.5 fl (35.1-43.9); Red Blood Count 5.39 M/mm3 (4.2-5.4); White Blood Count 14.5 K/mm3 (4.4-11.0)
[2024-08-17 12:07] LABS: Erythrocyte Sedimentation Rate 23 mm/hr (0-30)
[2024-08-17 12:48] LABS: ALB/GLOB Ratio 0.8 RATIO (0.9-2.4); AST(SGOT) 33 U/L (15-37); Alanine Aminotransfer ALT/SGPT 32 U/L (13-56); Albumin, Serum 3.8 g/dL (3.2-5.0); Alkaline Phosphatase 173 U/L (45-117); Amylase 44 U/L (25-115); Anion Gap 7 (5-15); BUN 9 mg/dL (7-18); BUN/Creat Ratio 11.1 RATIO (10-20); CRP < 2.90 mg/L (0.0-3.0); Calcium,Total 9.7 mg/dL (8.5-10.1); Chloride 110 mmol/L (98-107); Creatinine, Serum 0.81 mg/dL (0.55-1.02); EST Glomerular Filtration Rate 86 mL/min (>60); Est Glom Filt Rate - Afr Amer 104 mL/min (>60); Globulin 4.8 g/dL (2.2-4.2); Glucose 106 mg/dL (74-106); Lipase 37 U/L (13-75); Potassium 4.4 mmol/L (3.5-5.1); Protein, Total 8.6 g/dL (6.4-8.2); Sodium Level 139 mmol/L (136-145)
[2024-08-18 16:08] LABS: Endomysial Antibody IgA Negative (Negative); Immunoglobulin A 380 mg/dL (87-352); t-Transglutaminase IgA <2 U/mL (0-3)
== END | disposition home or self-care (01) ==
PROVIDERS: Internal Medicine Gastroenterology; PCP Family Medicine; Referring Provider Nurse Practitioner Acute Care; Visit Provider Nurse Practitioner Acute Care
DX: K80.50 Calculus of bile duct without cholangitis or cholecystitis without obstruction (principal); D64.9 Anemia, unspecified; K86.3 Pseudocyst of pancreas; R10.12 Left upper quadrant pain; R10.13 Epigastric pain; R19.7 Diarrhea, unspecified; R11.0 Nausea
CPT/HCPCS: 36415; 80053; 82150; 82784; 83516; 83690; 85025; 85652; 86140; 86255

== ENCOUNTER 2024-08-29 20:00 | Inpatient (IN) | payer MEDICAID, SELFPAY ==
[2024-08-29 20:01] VITALS: BP 153/118; PULSE 111; RESP 26; TEMP 37.2; O2SAT 99
[2024-08-29 20:58] LABS: Absolute Lymphocyte Count 2.78 X10^3/uL (0.83-4.51); Absolute Neutrophil Count 8.6 X10^3/uL (2.0-7.7); Basophil# 0.06 X10^3/uL; Basophil% 0.5 % (0-1); Eosinophil# 0.27 X10^3/uL; Eosinophils% 2.2 % (0-5); Hematocrit 42.9 % (37-47); Hemoglobin 14.4 g/dL (12.0-15.0); Lymphocyte # 2.78 X10^3/ul (0.83-4.51); Lymphocyte % 22.5 % (19-41); Mean Corp Hgb Conc 33.6 g/dL (32-36); Mean Corpuscular Hgb 29.3 pg (27.0-32.0); Mean Corpuscular Volume 87.4 fL (81-99); Mean Platelet Vol. 11.7 fl (6.2-12.0); Monocyte% 4.8 % (0-10); NRBC Flagged by Analyzer 0 % (0-5); Neutrophil # 8.61 X10^3/uL (2.7-7.7); Neutrophil % 69.5 % (47-70); Platelet Count 421 K/mm3 (150-450); RBC Distribution Width CV 13.4 % (11.6-14.6); RBC Distribution Width SD 43.3 fl (35.1-43.9); Red Blood Count 4.91 M/mm3 (4.2-5.4); White Blood Count 12.4 K/mm3 (4.4-11.0)
[2024-08-29 21:18] LABS: ALB/GLOB Ratio 0.7 RATIO (0.9-2.4); AST(SGOT) 32 U/L (15-37); Alanine Aminotransfer ALT/SGPT 37 U/L (13-56); Albumin, Serum 3.3 g/dL (3.2-5.0); Alkaline Phosphatase 255 U/L (45-117); Anion Gap 11 (5-15); BUN 10 mg/dL (7-18); BUN/Creat Ratio 14.8 RATIO (10-20); Calcium,Total 9.2 mg/dL (8.5-10.1); Chloride 103 mmol/L (98-107); Creatinine, Serum 0.68 mg/dL (0.55-1.02); EST Glomerular Filtration Rate 107 mL/min (>60); Est Glom Filt Rate - Afr Amer 129 mL/min (>60); Globulin 4.9 g/dL (2.2-4.2); Glucose 104 mg/dL (74-106); Potassium 3.7 mmol/L (3.5-5.1); Protein, Total 8.2 g/dL (6.4-8.2); Sodium Level 136 mmol/L (136-145)
[2024-08-29 21:20] LABS: Internal QC Validated? YES +Cl - CLEAR BKGD; Pregnancy, Serum, hCG Quali. NEGATIVE Negative
--- NOTE | 2024-08-29 21:45 | CT_ITS ---
PROCEDURE: ABDOMEN/PELVIS W IV CONT ONLY REASON FOR EXAM: Abdominal pain. TECHNIQUE: Abdomen and pelvis CT with intravenous contrast. Coronal and sagittal 2D reformatted images were provided for better evaluation. COMPARISON: CT abdomen/pelvis from 07/18/2024. FINDINGS: Lung bases are clear. There is a small focal area of hypoattenuation involving the left hepatic lobe along the falciform ligament relating to focal fatty infiltration. Gallbladder is surgically absent. Spleen demonstrates a heterogeneous appearance. There is a small accessory splenule. Adrenal glands are unremarkable. There is redemonstration of a cystic focus involving the posterior body of the pancreas measuring 9 x 6 mm and is not significantly changed. There is an additional stable cystic focus involving the body/tail of the pancreas measuring proximally 7 mm. There is subtle hazy stranding involving the pancreatic head with adjacent multiple small lymph nodes. Abdominal aorta demonstrates a normal caliber. Bilateral kidneys enhance homogeneously without hydronephrosis. Urinary bladder is smoothly contoured. Uterus is right of midline in the right pelvic region. There is a hypodensity involving the uterine fundus on the left measuring 8.5 mm likely related to a small fibroid. Right ovarian follicles are noted. There is [id number]-vj-[id number] retained stool in the colon without obstruction. There is wall thickening of the transverse colon, ascending colon, and cecum. Additionally, there is a long segment of wall thickening involving the terminal ileum and distal ileum. Appendix is unremarkable. No free air or free fluid is identified. There are mildly prominent mesenteric lymph nodes in the right lower quadrant and mid abdomen as well. Evaluation of the osseous structures demonstrates no acute findings. There is a stable small 7 mm peripherally sclerotic lytic focus involving the right ilium. CT/Abdomen/Pelvis W IV Cont ONLY IMPRESSION: 1. Wall thickening of the transverse colon, ascending colon, and cecum as well as a long segment of wall thickening involving the transverse ileum and distal ileum likely relating to an enterocolitis. No jaiden l obstruction is present. There are mildly prominent mesenteric lymph nodes which are likely reactive. 2. Subtle peripancreatic stranding along the pancreatic head with adjacent mult iple small lymph nodes. Correlate for mild acute pancreatitis. 3. Stable cystic foci involving the pancreas as above may relate to pseudocysts /cysts. 4. Additional findings as above. One or more dose reduction techniques were used (e.g., Automated exposure contr ol, adjustment of the mA and/or kV according to patient size, use of iterative reconstruction technique). Reading Location: [facility]
--- NOTE | 2024-08-29 21:45 | EX.ED.DYSGE1 ---
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 She has a history of pseudocyst as well. She denies alcohol use. She denies headache, visual, ocular auditory symptoms. She denies cardiac or respiratory symptoms. She does complain of abdominal pain that is severe. She is in position. She is not diaphoretic. Patient denies coffee-ground emesis or hematemesis. Patient states she has chronic diarrhea. She does note at times fat in her diarrhea. She denies dysuria, frequency, urgency or hematuria. Prior similar symptoms: Yes Recent Illness/Hospitalization: Yes (Last ER visit for abdominal pain was July 18, 2024. She was seen in ) [facility] Medical History Restless legs Anxiety Depression Asthma Migraines Cannabis use disorder Tobacco use Acute pancreatitis Choledocholithiasis Anemia Pancreatitis IBS (irritable bowel syndrome) Home Medications ?Medication ?Instructions ?Recorded ?Last Taken ?Type albuterol sulfate 90 mcg/actuation 1 - 2 puff inhalation Q6H PRN 01/12/24 Unknown History aerosol inhaler ASTHMA acetaminophen 500 mg tablet 1,000 mg PO Q8 PRN pain 07/18/24 Unknown History cyclobenzaprine 5 mg tablet 5 mg PO DAILY muscle spasms 07/18/24 Unknown History magnesium 200 mg tablet 200 mg PO BID supplement 07/18/24 Unknown History naloxone 4 mg/actuation nasal spray 1 spray intranasal X1 too much 07/18/24 Unknown History narcotics dicyclomine 20 mg tablet 20 mg PO TID irritable bowel #90 08/14/24 Unknown Rx TABLETS omeprazole 40 mg capsule,delayed 40 mg PO DAILY GERD 30 days #30 08/14/24 Unknown Rx release caps folic acid 1 mg tablet 1 mg PO DAILY SUPPLEMENT #30 tabs 08/17/24 Unknown Rx sucralfate 100 mg/mL oral 10 ml PO QAC #1,000 mL 08/17/24 Unknown Rx suspension (Carafate) thiamine HCl (vitamin B1) 100 mg 100 mg PO QDAY SUPPLEMENT #30 tabs 08/17/24 Unknown Rx tablet tramadol 100 mg tablet 100 mg PO Q8H PRN pain #60 tabs 08/17/24 Unknown Rx diazepam 5 mg tablet (Valium) 5 mg PO ONCE #1 TAB 08/24/24 Unknown Rx Allergy/AdvReac Type Severity Reaction Status Date / Time codeine AdvReac Intermediate Vomiting Verified 08/29/24 20:01 Family History Mother Diabetes Asthma Thyroid disorder IBS (irritable bowel syndrome) Father Diabetes Hypertension Surgical History Previous section S/P ERCP History of cholecystectomy Social History household members: significant other and children Smoking Status: Current every day smoker tobacco type: cigarettes alcohol intake: never details: no alcohol substance use type: marijuana ROS ROS ED Constitutional Constitutional ED: Denies chills, fever(s), subjective or sweats Eyes Eyes: Denies blurry vision or change in vision ENT ENT ED: Denies ear pain, rhinorrhea or sore throat Cardiovascular Cardiovascular: Denies chest pain or palpitations Respiratory/Chest Respiratory/Chest: Denies cough, dyspnea or dyspnea on exertion Gastrointestinal Gastrointestinal: Reports abdominal pain, diarrhea, nausea and vomiting; Denies constipation or melena Genitourinary Genitourinary ED: Denies dysuria, hematuria or urinary frequency Musculoskeletal Musculoskeletal: Denies arthralgias or myalgias Integumentary Denies rash Psychiatric Psychiatric: Denies anxiety or depression Endocrine Endocrinology: Denies cold intolerance or heat intolerance Hematologic/Lymphatic Hematologic/Lymphatic: Reports systems reviewed and no addt'l complaints, except as documented EXAM Physical Exam Const Vital Signs: 08/29/24 20:01 08/29/24 22:01 Temperature 98.9 F Temperature Source Oral Pulse Rate 111 H 75 Respiratory Rate 26 H Blood Pressure 153/118 H 106/84 H Blood Pressure Mean 129 91 Pulse Ox 99 100 Oxygen Delivery Method Room Air Room Air Positive well nourished and well developed Constitutional Narrative: Vital signs are marked for tachycardia, tachypnea and elevated blood pressure. Patient is not hypoxic. She appears uncomfortable. She is diaphoretic. She is in a position on her right side. General Appearance ED: well developed and pallor; Negative for cyanotic, diaphoretic or NAD HEENT Reports dry mucous membranes HEENT Narrative: Head is atraumatic normocephalic. Ears normal. Nares patent. Mouth ED: Yes dry mucous membranes Mouth: dry mucous membranes Eyes PERRL and EOMs intact bilaterally General Eye ED: Negative for pale conjunctiva or scleral icterus Neck no lymphadenopathy, supple and no JVD Resp normal respiratory effort and clear to auscultation bilaterally Cardio regular rhythm, S1 normal heart sound, S2 normal heart sound and no murmurs Rate: tachycardic GI non-distended and no masses; Negative for non-tender or hepatosplenomegaly GI Narrative: There is no temperature percussion. Patient has significant tenderness left and right upper quadrant as well as epigastric area. There is guarding. Bowel sounds are diminished. Back/Spine no CVA tenderness Extremity normal to inspection Extremity Narrative: There is no clubbing or cyanosis. There is no delay in perfusion. General Extremety ED: Negative for edema or tenderness General Extremity: Negative for edema Neuro oriented x3 and CN's II-XII intact bilaterally Sensorium / Orientation: alert Skin no rashes or lesions noted, no wounds and skin turgor normal General Skin Exam: pallor; Negative for jaundice MDM MDM MDM Narrative Medical decision making narrative: Nurse protocol was initiated. Differential diagnosis is abdominal pain of unknown etiology, bowel obstruction, exacerbation of pancreatitis, lower lobe pneumonia. Agree with nurses orders. Added lipase and CT of the abdomen because of the amount of tenderness. Prior ER records from June, April and March were reviewed.She required admission for the June visit. History & Record Review Additional record(s) reviewed:: Prior inpatient record, Prior ED visit and Prior labs Lab Data Attestation: I reviewed the patient's lab results. Lab results narrative: White count is elevated 12.4. H&H is normal. Differential is normal. Comprehensive metabolic panel visit elevated alkaline phosphatase. Serum test is negative. Labs: Laboratory Results - last 24 hr 08/29/24 20:43 WBC 12.4 H RBC 4.91 Hgb 14.4 Hct 42.9 MCV 87.4 MCH 29.3 MCHC 33.6 RDW Std Deviation 43.3 RDW Coeff of Mercedes 13.4 Plt Count 421 MPV 11.7 Immature Gran % (Auto) 0.500 Neut % (Auto) 69.5 Lymph % (Auto) 22.5 Heard % (Auto) 4.8 Eos % (Auto) 2.2 Baso % (Auto) 0.5 Absolute Neuts (auto) 8.6 H Absolute Lymphs (auto) 2.78 Nucleated RBC % 0 Sodium 136 Potassium 3.7 Chloride 103 Carbon Dioxide 23.0 Anion Gap 11 BUN 10 Creatinine 0.68 Est GFR (MDRD) Af Amer 129 Est GFR (MDRD) Non-Af 107 BUN/Creatinine Ratio 14.8 Glucose 104 Calcium 9.2 Total Bilirubin 0.50 AST 32 ALT 37 Alkaline Phosphatase 255 H Total Protein 8.2 Albumin 3.3 Globulin 4.9 H Albumin/Globulin Ratio 0.7 L Lipase 144 Serum , Qual NEGATIVE Even though patient's lipase is normal CAT scan shows evidence of acute pancreatitis. Radiography Diagnostic Testing: Clinical Impression(s) from Imaging Studies Abdomen/Pelvis CT 08/29/24 21:45 IMPRESSION: 1. Wall thickening of the transverse colon, ascending colon, and cecum as well as a long segment of wall thickening involving the transverse ileum and distal ileum likely relating to an enterocolitis. No bowel obstruction is present. There are mildly prominent mesenteric lymph nodes which are likely reactive. 2. Subtle peripancreatic stranding along the pancreatic head with adjacent multiple small lymph nodes. Correlate for mild acute pancreatitis. 3. Stable cystic foci involving the pancreas as above may relate to pseudocysts/cysts. 4. Additional findings as above. One or more dose reduction techniques were used (e.g., Automated exposure control, adjustment of the mA and/or kV according to patient size, use of iterative reconstruction technique). Reading Location: [facility] Radiology report was read. Patient will need admission for pain management, nausea vomiting and chronic diarrhea. Chronic diarrhea apparently is due to enterocolitis. Management Discussion w/another healthcare provider: Hospitalist (Case was discussed with Dr. Goodman for admission for exacerbation of pancreatitis with nausea vomiting.) Treatment and Re-Evaluation :: I was informed by nurse the patient was requesting more pain medicine. Additional 4 mg of morphine was ordered. Discharge Plan Dx/Rx/DC Orders Clinical Impression: Acute on chronic pancreatitis, Nausea & vomiting, SPINK1 gene mutation, Enterocolitis, Chronic diarrhea, Acute upper abdominal pain, Leukocytosis Disposition Disposition: Acute Care Hospital [facility]
[2024-08-29] MEDS: Ondansetron 4 MG/2 ML Vial IV (21:54)
[2024-08-29] MEDS: Morphine 4 MG/ML Syringe IV ×2 (21:54→22:56)
[2024-08-29 22:01] VITALS: BP 106/84; PULSE 75; O2SAT 100
[2024-08-29 22:01] LABS: Lipase 144 U/L (73-393)
[2024-08-29 23:16] LABS: Bacteria 0 SEEN /hpf (None Seen); Mucous, Urine 0 SEEN /hpf (<or=2+); White Blood Cells 0 SEEN /hpf (0-5)
[2024-08-29 23:17] LABS: Color, Urine Yellow (Yellow); Glucose, Dipstick Normal (Normal); Ketone-Dipstick Negative (Negative); Leukocyte Esterase-Dipstick 25 /ul (Negative); Nitrite-Dipstick Negative (Negative); Occult Blood-Urine 25 /ul (Negative); Protein-Dipstick 15 mg/dl (Negative); Urine Bilirubin Dipstick Negative (Negative); Urine Clarity Clear (Clear); Urine Urobilinogen Normal (Normal)
--- NOTE | 2024-08-29 23:26 | HP.PCM.HOS_ITS ---
[facility] - General General Date of Admission: 08/30/24 Date of Service: 08/29/24 Chief Complaint: Abdominal Pain, Nausea and Vomiting. 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 pearson of gastroenterology, history of pancreatic pseudocyst, history of choledocholithiasis; with subsequent cholecystectomy, IBS of diarrheal type; on prn dicyclomine, GERD; on omeprazole and sucralfate, chronic anemia, history of asthma, RLS, history of migraine headaches, history of , history of cannabis abuse, history of tobacco abuse, chronic pain syndrome; on prn tramadol q. 8 hours and history of depression with anxiety; on prn diazepam who presents to [facility] ER complaining of abdominal pain, nausea and vomiting. Ms. Cheek reports her symptoms began earlier today with a gradual- onset of progressively worsening severe abdominal pain that was focused mainly in her upper abdomen, Left greater than Right after she babysat a friend's children who was sick with a viral GI illness with patient suspecting she may have contracted an illness from one of the children. She then developed nausea with bilious emesis with her severe pain not made better or worse by anything. She admits her symptoms are similar to her previous flares of acute pancreatitis - but this episode is worse. She denies associated fever, chills, coffee-ground emesis, hematemesis, chest pain or shortness of breath but she does admit to chronic diarrhea and new herpetic lesions breaking out around her lips. In the ER she was noted to have CT evidence of wall thickening of the transverse colon, ascending colon and cecum as well as a long segment of a wall thickening of the transverse ileum and distal ileum likely relating to an Enterocolitis with no bowel obstruction present and mildly prominent mesenteric lymph nodes which are likely reactive in addition to subtle peripancreatic stranding along the pancreatic head with adjacent multiple small lymph nodes correlate for mild acute pancreatitis and stable cystic foci involving the pancreas likely related to pseudocysts with laboratory evidence of Leukocytosis of 12.4 K present on admission complicated by clinical evidence of Acute Herpes Labialis with Stomatitis in addition to severe persistent abdominal pain with intractable nausea and vomiting and she was then admitted to the general medical floor for ongoing care for status expected to extend beyond 2 midnights. [facility] Medical History Restless legs Anxiety Depression Asthma Migraines Cannabis use disorder Tobacco use Acute pancreatitis Choledocholithiasis Anemia Pancreatitis IBS (irritable bowel syndrome) Home Medications ?Medication ?Instructions ?Recorded ?Last Taken ?Type acetaminophen 500 mg tablet 1,000 mg PO Q8 PRN pain Unknown History cyclobenzaprine 5 mg tablet 5 mg PO DAILY muscle spasm s 07/18/24 Unknown History naloxone 4 mg/actuation nasal spray 1 spray intranasal X1 too much 07/18/24 Unknown History narcotics dicyclomine 20 mg tablet 20 mg PO TID irritable bowel #90 08/14/24 Unknown Rx TABLETS omeprazole 40 mg capsule,delayed 40 mg PO DAILY GERD 30 days #30 08/14/24 Unknown Rx release caps folic acid 1 mg tablet 1 mg PO DAILY SUPPLEMENT #3 0 tabs 08/17/24 Unknown Rx sucralfate 100 mg/mL oral 10 ml PO QAC PANCREATITIS #1 ,000 mL 08/17/24 Unknown Rx suspension (Carafate) thiamine HCl (vitamin B1) 100 mg 100 mg PO QDAY SUPPLE MENT #30 tabs 08/17/24 Unknown Rx tablet tramadol 100 mg tablet 100 mg PO Q8H PRN pain #60 t abs 08/17/24 Unknown Rx diazepam 5 mg tablet (Valium) 5 mg PO ONCE mri #1 TAB 08/24/24 Unknown Rx Allergy/AdvReac Type Severity Reaction Status Date / Time codeine AdvReac Intermediate Vomiting Verified 08/29/24 20:01 Family History Mother Diabetes Asthma Thyroid disorder IBS (irritable bowel syndrome) Father Diabetes Hypertension Surgical History Previous section S/P ERCP History of cholecystectomy Social History household members: significant other and children Smoking Status: Current every day smoker tobacco type: cigarettes alcohol intake: never details: no alcohol substance use type: marijuana ROS ROS Narrative Review of Systems: Constitutional: Denies fever or chills. Eyes: Patient denies changes in vision or discharge from eyes. ENT: Patient admits to painful herpes lesions breaking out on her lips and inside her oral mucosa but she denies runny nose, sore throat or ear pain. Resp: Patient denies shortness of breath or cough. CV: Patient denies chest pain, palpitations, heart racing or lower extremity edema. GI: Patient admits to severe abdominal pain focused in the upper abdomen with nonbloody diarrhea nausea and vomiting with bilious emesis as per HPI. : Patient denies dysuria, hematuria or urinary frequency. MSK: Patient denies arthralgias or myalgias. Skin: Patient denies rash, abscess or jaundice. Psych: Patient denies symptoms of uncontrolled depression or anxiety. Neuro: Patient denies headache, paresthesias or focal neurologic deficits. Allergy: Patient denies tongue swelling or urticaria. Hematology: Patient denies easy bleeding or easy bruisability. Endocrinology: Patient denies polyuria, polydipsia or polyphagia. 14 point review of systems otherwise negative save for positives noted above in HPI. Vital Signs Vital Signs Vital Signs: 08/29/24 20:01 08/29/24 22:01 Temperature 98.9 F Temperature Source Oral Pulse Rate 111 H 75 Respiratory Rate 26 H Blood Pressure 153/118 H 106/84 H Blood Pressure Mean 129 91 Pulse Ox 99 100 Oxygen Delivery Method Room Air Room Air Physical Exam Const alert, oriented x3 and average body habitus Constitutional Narrative: Moderate distress noted patient lying in position. General Appearance: cooperative HEENT normocephalic, head/scalp atraumatic and hearing grossly normal bilaterally HEENT Narrative: Mucous membranes dry. Eyes PERRL, EOMs intact bilaterally and conjunctivae normal Neck no lymphadenopathy and supple Resp normal respiratory effort, no retractions, no use of accessory muscles and clear to auscultation bilaterally Cardio regular rate and regular rhythm GI GI Narrative: Patient is significant tenderness in the upper abdomen in the Left and Right upper quadrant as well as in the epigastric area with guarding with diminished bowel sounds. Auscultation: hypoactive bowel sounds Palpation: guarding Extremity normal to inspection, full ROM and no clubbing, cyanosis or edema Skin Skin Narrative: Patient has no evidence of rash, abscess, wounds or jaundice. Neuro oriented x3, CN's II-XII intact bilaterally, moves all extremities and no focal motor deficits Sensorium / Orientation: awake, alert, oriented to person, oriented to place and oriented to time Speech: speech normal Psych affect normal Results Medical Records Data Attestation: I reviewed the patient's medical records Lab / Micro Data Attestation: I reviewed the patient's lab results. 08/29/24 20:43 08/29/24 20:43 Labs: Laboratory Results - last 24 hr 08/29/24 20:43: WBC 12.4 H, RBC 4.91, Hgb 14.4, Hct 42.9, MCV 87.4, MCH 29.3, MCHC 33.6, RDW Std Deviation 43.3, RDW Coeff of Mercedes 13.4, Plt Count 421, MPV 11.7, Immature Gran % (Auto) 0.500, Neut % (Auto) 69.5, Lymph % (Auto) 22.5, [place] % (Auto) 4.8, Eos % (Auto) 2.2, Baso % (Auto) 0.5, Absolute Neuts (auto) 8.6 H, Absolute Lymphs (auto) 2.78, Nucleated RBC % 0, Sodium 136, Potassium 3.7, Chloride 103, Carbon Dioxide 23.0, Anion Gap 11, BUN 10, Creatinine 0.68, Est GFR (MDRD) Af Amer 129, Est GFR (MDRD) Non-Af 107, BUN/Creatinine Ratio 14.8, Glucose 104, Calcium 9.2, Total Bilirubin 0.50, AST 32, ALT 37, Alkaline Phosphatase 255 H, Total Protein 8.2, Albumin 3.3, Globulin 4.9 H, A lbumin/Globulin Ratio 0.7 L, Lipase 144, Serum , Qual NEGATIVE Imaging Radiology Impression Abdomen/Pelvis CT 08/29/24 21:45 IMPRESSION: 1. Wall thickening of the transverse colon, ascending colon, and cecum as well as a long segment of wall thickening involving the transverse ileum and distal ileum likely relating to an enterocolitis. No bowel obstruction is present. There are mildly prominent mesenteric lymph nodes which are likely reactive. 2. Subtle peripancreatic stranding along the pancreatic head with adjacent multiple small lymph nodes. Correlate for mild acute pancreatitis. 3. Stable cystic foci involving the pancreas as above may relate to pseudocysts/cysts. 4. Additional findings as above. One or more dose reduction techniques were used (e.g., Automated exposure control, adjustment of the mA and/or kV according to patient size, use of iterative reconstruction technique). Reading Location: [facility] Assessment & Plan Assessment/Plan (1) Acute on chronic pancreatitis: (2) SPINK1 gene mutation: (3) Pseudocyst of pancreas: (4) Acute upper abdominal pain: (5) Intractable nausea and vomiting: (6) Chronic diarrhea: (7) Herpes labialis: (8) Leukocytosis: QUALIFIERS: Leukocytosis type: unspecified Qualified Code(s): D 72.829 - Elevated white blood cell count, unspecified PLAN: Plan 1. 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 pearson of gastroenterology with history of pancreatic pseudocyst and history of choledocholithiasis; with subsequent cholecystectomy - Admit to general medical floor under aspiration precautions and aggressively volume resuscitate. Keep strict NPO. Give pantoprazole 40 mg IV daily. Give ketorolac IV as needed for [id number] (level 1-5/10) pain or fever. Give Dilaudid 1 mg IV every 4 hours as needed for severe (level 6-10/10) pain with ongoing pain after morphine administration in ER. Finally, we will consult gastroenterology to see this patient on rounds in the a.m. further recommendations without appreciated in advance. 2. CT evidence of wall thickening of the transverse colon, ascending colon and cecum as well as a long segment of a wall thickening of the transverse ileum and distal ileum likely relating to an enterocolitis with no bowel obstruction present and mildly prominent mesenteric lymph nodes which are likely reactive in the setting of known IBS of diarrheal type; on as needed dicyclomine with Leukocytosis of 12.4K present on admission complicating #1 - Start broad- spectrum antibiotics with IV ceftriaxone and IV metronidazole. Check stool studies with history of diarrhea and placed on enteric precautions after recent sick contacts with multiple children with a viral GI illness. 3. Severe Acute Herpes Labialis with Stomatitis in addition to persistent abdominal pain with intractable nausea and vomiting arising from #1 & #2 in the setting of known chronic pain syndrome; on as needed tramadol - Start Acyclovir 600 mg IV TID. Continue pain regimen as outlined above. Give IV ondansetron as needed for nausea and vomiting. Give promethazine IM as needed for breakthrough nausea and vomiting. Place scopolamine patch to help control severe nausea. 4. GERD; on omeprazole and sucralfate adding to the medical complexity of #1 - #3 - Patient will be started on IV pantoprazole for #1. 5. Tobacco Abuse adding to the burden of disease outlined from #1 - #4 - Tobacco Cessation will be strongly encouraged with nicotine patch offered to control cravings. 6. Cannabis Abuse - Cannabis Cessation will be strongly encouraged. 7. Chronic anemia - Stable with hemoglobin of 14.4 g/dL and MCV of 87.4 fL present on admission. 8. History of asthma - Stable with no evidence of acute flare at this time. Continue as needed nebulizers. 9. RLS - Stable. 10. History of migraine headaches - Give Maxalt as needed if migraine develops. 11. History of - Noted for the sake of completeness. 12. History of depression with anxiety; on prn diazepam - Give low-dose IV lorazepam for breakthrough symptoms. 13. DVT prophylaxis - Lovenox 40 mg sq daily plus SCD's. Total time: Approximately (but not less than) 75 minutes. Charges/Coding Visit Charges Inpatient E&M: 06380 Init Hosp L3
[2024-08-29 23:48] LABS: Red Blood Cells-Urine 0 SEEN /hpf (0-5); Squamous Epithelial Cells - UA 0-5 SEEN /hpf (5-10)
[2024-08-30] VITALS (13 sets, daily range): BP systolic 94–132; BP diastolic 52–88; PULSE 69–100; RESP 16–24; TEMP 36.4–37.1; O2SAT 95–98; BMI 22.6; BMI 23.5
[2024-08-30] MEDS: Ceftriaxone 1 GM/50 ML BAG IV ×2 (01:45→21:11)
[2024-08-30] MEDS: 0.9% Normal Saline (1000mL) 1,000 ML 200 ML IV ×3 (01:52→13:04)
[2024-08-30] MEDS: Ketorolac 15 MG/ML Vial IV (01:53)
[2024-08-30] MEDS: Pantoprazole Sodium 40 MG in 0.9% Normal Saline (100mL MB+) 100 ML 330 MG IV ×3 (01:56→21:14)
[2024-08-30] MEDS: metroNIDAZOLE 500 MG/100 ML BAG 100 MG IV ×3 (02:55→18:09)
[2024-08-30] MEDS: Scopolamine 1mg/72hr Patch 1 PATCH TD (02:57)
[2024-08-30] MEDS: HYDROmorphone 1 MG/ML Syringe IV ×6 (03:01→19:10)
[2024-08-30] MEDS: Enoxaparin 40 MG/0.4 ML Syringe SC (05:55)
[2024-08-30 06:43] LABS: Absolute Lymphocyte Count 2.45 X10^3/uL (0.83-4.51); Basophil# 0.03 X10^3/uL; Basophil% 0.4 % (0-1); Eosinophil# 0.22 X10^3/uL; Eosinophils% 2.7 % (0-5); Hematocrit 35.7 % (37-47); Hemoglobin 11.4 g/dL (12.0-15.0); Lymphocyte # 2.45 X10^3/ul (0.83-4.51); Lymphocyte % 29.8 % (19-41); Mean Corp Hgb Conc 31.9 g/dL (32-36); Mean Corpuscular Hgb 28.4 pg (27.0-32.0); Mean Platelet Vol. 11.2 fl (6.2-12.0); Monocyte# 0.44 X10^3/uL; Monocyte% 5.4 % (0-10); NRBC Flagged by Analyzer 0 % (0-5); Neutrophil # 5.04 X10^3/uL (2.7-7.7); Neutrophil % 61.2 % (47-70); Platelet Count 286 K/mm3 (150-450); RBC Distribution Width CV 13.6 % (11.6-14.6); RBC Distribution Width SD 44.6 fl (35.1-43.9); Red Blood Count 4.01 M/mm3 (4.2-5.4); White Blood Count 8.2 K/mm3 (4.4-11.0)
[2024-08-30] MEDS: ACYCLOVIR IV ×3 (06:48→22:57)
[2024-08-30] MEDS: WATER IV ×3 (06:48→22:57)
[2024-08-30] MEDS: DEXTROSE 5% IV ×3 (06:48→22:57)
[2024-08-30] MEDS: DOCOSANOL TOPICAL ×5 (06:51→21:17)
[2024-08-30 07:29] LABS: ALB/GLOB Ratio 0.6 RATIO (0.9-2.4); AST(SGOT) 21 U/L (15-37); Alanine Aminotransfer ALT/SGPT 28 U/L (13-56); Albumin, Serum 2.4 g/dL (3.2-5.0); Alkaline Phosphatase 188 U/L (45-117); Anion Gap 6 (5-15); BUN 11 mg/dL (7-18); BUN/Creat Ratio 22.4 RATIO (10-20); Calcium,Total 8.2 mg/dL (8.5-10.1); Chloride 109 mmol/L (98-107); Creatinine, Serum 0.49 mg/dL (0.55-1.02); EST Glomerular Filtration Rate 154 mL/min (>60); Est Glom Filt Rate - Afr Amer 187 mL/min (>60); Estimated Creatinine Clearance 130.36 ml/min; Globulin 3.7 g/dL (2.2-4.2); Glucose 86 mg/dL (74-106); Magnesium 1.9 mg/dL (1.6-2.6); Phosphorus 4.2 mg/dL (2.5-4.9); Potassium 3.7 mmol/L (3.5-5.1); Protein, Total 6.1 g/dL (6.4-8.2); Sodium Level 137 mmol/L (136-145)
--- NOTE | 2024-08-30 10:12 | PN.HOSP_ITS ---
Subjective Subjective Still significant pain mostly in her epigastric region Objective Data Objective Data Vital Signs: Vital Signs Temp Pulse Resp BP Pulse Ox O2 Del Method 97.6 F L 93 20 H 112/71 95 Room Air 08/30/24 08:50 08/30/24 08:50 08/30/24 08:50 08/30/24 08:50 08/30/24 09:05 08/30/24 09:05 Oxygen Delivery Method Room Air Weight: 128 lb 8.472 oz Body Mass Index (BMI) 23.5 Intake & Output: Intake and Output for Last 24 Hours 08/29/24 08/30/24 08/31/24 03:59 03:59 03:59 Intake Total 260 / 260 1261.2 / 1261.2 Balance 260 / 260 1261.2 / 1261.2 Lab / Micro Data 08/30/24 06:30 08/30/24 06:30 Labs: Laboratory Results - last 24 hr 08/29/24 20:43: WBC 12.4 H, RBC 4.91, Hgb 14.4, Hct 42.9, MCV 87.4, MCH 29.3, MCHC 33.6, RDW Std Deviation 43.3, RDW Coeff of Mercedes 13.4, Plt Count 421, MPV 11.7, Immature Gran % (Auto) 0.500, Neut % (Auto) 69.5, Lymph % (Auto) 22.5, [place] % (Auto) 4.8, Eos % (Auto) 2.2, Baso % (Auto) 0.5, Absolute Neuts (auto) 8.6 H, Absolute Lymphs (auto) 2.78, Nucleated RBC % 0, Sodium 136, Potassium 3.7, Chloride 103, Carbon Dioxide 23.0, Anion Gap 11, BUN 10, Creatinine 0.68, Est GFR (MDRD) Af Amer 129, Est GFR (MDRD) Non-Af 107, BUN/Creatinine Ratio 14.8, Glucose 104, Calcium 9.2, Total Bilirubin 0.50, AST 32, ALT 37, Alkaline Phosphatase 255 H, Total Protein 8.2, Albumin 3.3, Globulin 4.9 H, A lbumin/Globulin Ratio 0.7 L, Lipase 144, Serum , Qual NEGATIVE 08/29/24 23:10: Urine Color Yellow, Urine Clarity Clear, Urine pH 5.0, Ur Specific [place] 1.010, Urine Protein 15 H, Urine Glucose (UA) Normal, Urine Ketones Negative, Urine Occult Blood 25 H, Urine Nitrite Negative, Urine Bilirubin Negative, Urine Urobilinogen Normal, Ur Leukocyte Esterase 25 H, Urine RBC 0 SEEN, Urine WBC 0 SEEN, Ur Squamous Epith Cells 0-5 SEEN, Urine Bacteria 0 SEEN, Urine Mucus 0 SEEN 08/30/24 06:30: WBC 8.2, RBC 4.01 L, Hgb 11.4 L, Hct 35.7 L, MCV 89.0, MCH 28.4, MCHC 31.9 L D, RDW Std Deviation 44.6 H, RDW Coeff of Mercedes 13.6, Plt Count 286, MPV 11.2, Immature Gran % (Auto) 0.500, Neut % (Auto) 61.2, Lymph % (Auto) 29.8, [place] % (Auto) 5.4, Eos % (Auto) 2.7, Baso % (Auto) 0.4, Absolute Neuts (auto) 5.0, Absolute Lymphs (auto) 2.45, Nucleated RBC % 0, Sodium 137, Potassium 3.7, Chloride 109 H, Carbon Dioxide 21.0, Anion Gap 6, BUN 11, Creatinine 0.49 L, Estim Creat Clear Calc 130.36, Est GFR (MDRD) Af Amer 187, Est GFR (MDRD) Non-Af 154, BUN/Creatinine Ratio 22.4 H, Glucose 86, Calcium 8.2 L, Phosphorus 4.2, Magnesium 1.9, Total Bilirubin 0.50, AST 21, ALT 28, Alkaline Phosphatase 188 H, Total Protein 6.1 L, Albumin 2.4 L, Globulin 3.7, Albumin/Globulin Ratio 0.6 L, TSH 5.770 H Radiography Diagnostic Testing: Radiology Impression Abdomen/Pelvis CT 08/29/24 21:45 IMPRESSION: 1. Wall thickening of the transverse colon, ascending colon, and cecum as well as a long segment of wall thickening involving the transverse ileum and distal ileum likely relating to an enterocolitis. No bowel obstruction is present. There are mildly prominent mesenteric lymph nodes which are likely reactive. 2. Subtle peripancreatic stranding along the pancreatic head with adjacent multiple small lymph nodes. Correlate for mild acute pancreatitis. 3. Stable cystic foci involving the pancreas as above may relate to pseudocysts/cysts. 4. Additional findings as above. One or more dose reduction techniques were used (e.g., Automated exposure control, adjustment of the mA and/or kV according to patient size, use of iterative reconstruction technique). Reading Location: [facility] Physical Exam Narrative General: Alert, Oriented x3, Cooperative, no pain HEENT: Atraumatic, PERRLA, EOMI, Normocephalic Oral: Moist Mucosa, herpes stomatitis Neck: Supple, No JVD Lungs: Diminished, Normal air movement, No rhonchi, No wheeze, No rales Cardiovascular: Tachycardic, Regular Rhythm, Normal S1, Normal S2, No murmurs Abdomen: Soft, tender, Non-Distended, No Hepato-splenomegaly Extremities: No edema, Capillary Refill Less than 3 Seconds Skin: No rashes, No breakdown Musculoskeletal: No Tenderness to Palpation of Joints or Extremities Neurological: No focal neurological deficits, Motor Exam 5/5 strength throughout, Sensory exam intact to light touch and pain Psych/Mental Status: Normal Affect, Appropriate Assessment & Plan Assessment/Plan (1) Acute on chronic pancreatitis: (2) SPINK1 gene mutation: (3) Pseudocyst of pancreas: (4) Intractable nausea and vomiting: PLAN: Plan 1. Acute on chronic pancreatitis with a history of choledocholithiasis and a biliary stricture/IBS/cannabis use ? Her pancreatitis is due to a [place] 1 gene mutation ? Awaiting GI evaluation though not much to do ?Sips to help manage her pain with oxycodone, and will continue with Dilaudid 2. A transverse colitis ? Continue with Rocephin and Flagyl, will not advance her diet until symptoms improve ? Continue with IV Zofran 3. Herpes stomatitis ? Continue with acyclovir 4. GERD ? Stable ? Continue with PPI DVT: Lovenox Charges/Coding Visit Charges Inpatient E&M: 00153 Subs Hosp L2
[2024-08-30] MEDS: 0.9% Saline Lock 10 ML Syringe IV ×2 (11:51→14:59)
[2024-08-30] MEDS: oxyCODONE 5 MG Tablet PO ×2 (13:09→21:09)
--- NOTE | 2024-08-30 13:45 | CASEMGMT ---
RN CM rubber boots and shoes repairer CM to room to meet with patient for initial transition planning/care coordination assessment. RN CM introduced self and role at [facility]. Patient lying in bed, alert and oriented. Patient willing to participate in assessment and is able to answer all questions appropriately. Care providers, pharmacy, and demographics verified. Strata: 2 PCP: Dr Jones Specialists: Dr Quintanilla. Pt states she is going to see a genetic therapist soon and also going to be seeing a surgeon in [place], but does not remember their name. Preferred Pharmacy: [facility] @ discharge. Otherwise goes to [facility] Insurance: [facility] Prescription Benefit: yes Living Will/HPOA: Pt does not have either. She declines wanting to complete AD at this time. Made aware can be completed as an OP if chooses to complete at a later time LNOK: mother, Skylar. Foster mom, Hilary Living Arrangements: Patient lives with boyfriend and 2 children (ages 11 & 8) in a mobile home with 5 steps and railing. Patient is independent at home. Transportation: family DME: Patient has grab bars at home. She has used her mothers nebulizer in the past, but does not have one of her own. SNF/HHC: No previous HHC or SNF. Declines needs and no needs identified. Patient wishes to discharge home and states she has no further needs or concerns at this time. CM to follow for discharge planning needs that may arise. Plan: Home Connor MILLER RN, CM
--- NOTE | 2024-08-30 16:15 | NURSING ---
All documentation by acute care certified nursing assistant Emely Hendrix reviewed by nursing associate Dina MILLER, RN.
--- NOTE | 2024-08-30 17:36 | EX.PCM.CON.G ---
HPI Consult Data Date of Consult: 08/30/24 HPI Narrative Reason for Consultation: Abdominal pain HPI Narrative: FEROZ CHEEK, is a 33 F who presented to the ED with worsening abdominal pain. 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 She also has a history of pancreatic pseudocyst, history of choledocholithiasis; with subsequent cholecystectomy, IBS of diarrheal type;chronic pain syndrome; Ms. Cheek reports her symptoms began earlier today with a gradual-onset of progressively worsening severe abdominal pain that was focused mainly in her upper abdomen, Left greater than Right after she babysat a friend's children who was sick with a viral GI illness with patient suspecting she may have contracted an illness from one of the children. She then developed nausea with bilious emesis with her severe pain not made better or worse by anything. She admits her symptoms are similar to her previous flares of acute pancreatitis - but this episode is worse. She denies associated fever, chills, coffee-ground emesis, hematemesis, chest pain or shortness of breath but she does admit to chronic diarrhea and new herpetic lesions breaking out around her lips. In the ER she was noted to have CT evidence of wall thickening of the transverse colon, ascending colon and cecum as well as a long segment of a wall thickening of the transverse ileum and distal ileum likely relating to an Enterocolitis with no bowel obstruction present and mildly prominent mesenteric lymph nodes which are likely reactive in addition to subtle peripancreatic stranding along the pancreatic head with adjacent multiple small lymph nodes correlate for mild acute pancreatitis and stable cystic foci involving the pancreas likely related to pseudocysts with laboratory evidence of Leukocytosis of 12.4 K present on admission complicated by clinical evidence of Acute Herpes Labialis with Stomatitis in addition to severe persistent abdominal pain with intractable nausea and vomiting [facility] Medical History Restless legs Anxiety Depression Asthma Migraines Cannabis use disorder Tobacco use Acute pancreatitis Choledocholithiasis Anemia Pancreatitis IBS (irritable bowel syndrome) Home Medications ?Medication ?Instructions ?Recorded ?Last Taken ?Type acetaminophen 500 mg tablet 1,000 mg PO Q8 PRN pain 07/18/24 Unknown History cyclobenzaprine 5 mg tablet 5 mg PO DAILY muscle spasms 12/31/24 Unknown History naloxone 4 mg/actuation nasal spray 1 spray intranasal X1 too much 07/18/24 Unknown History narcotics dicyclomine 20 mg tablet 20 mg PO TID irritable bowel #90 08/14/24 Unknown Rx TABLETS omeprazole 40 mg capsule,delayed 40 mg PO DAILY GERD 30 days #30 08/14/24 Unknown Rx release caps folic acid 1 mg tablet 1 mg PO DAILY SUPPLEMENT #30 tabs 08/17/24 Unknown Rx sucralfate 100 mg/mL oral 10 ml PO QAC PANCREATITIS #1,000 mL 08/17/24 Unknown Rx suspension (Carafate) thiamine HCl (vitamin B1) 100 mg 100 mg PO QDAY SUPPLEMENT #30 tabs 08/17/24 Unknown Rx tablet tramadol 100 mg tablet 100 mg PO Q8H PRN pain #60 tabs 08/17/24 Unknown Rx diazepam 5 mg tablet (Valium) 5 mg PO ONCE mri #1 TAB 08/24/24 Unknown Rx Allergy/AdvReac Type Severity Reaction Status Date / Time codeine AdvReac Intermediate Vomiting Verified 08/29/24 20:01 Family History Mother Diabetes Asthma Thyroid disorder IBS (irritable bowel syndrome) Father Diabetes Hypertension Surgical History Previous section S/P ERCP History of cholecystectomy Social History household members: significant other and children Smoking Status: Current every day smoker tobacco type: cigarettes alcohol intake: never details: no alcohol substance use type: marijuana ROS ROS Narrative Review of Systems: Constitutional: Denies fever or chills. Eyes: Patient denies changes in vision or discharge from eyes. ENT: Patient admits to painful herpes lesions breaking out on her lips and inside her oral mucosa but she denies runny nose, sore throat or ear pain. Resp: Patient denies shortness of breath or cough. CV: Patient denies chest pain, palpitations, heart racing or lower extremity edema. GI: Patient admits to severe abdominal pain focused in the upper abdomen with nonbloody diarrhea nausea and vomiting with bilious emesis as per HPI. : Patient denies dysuria, hematuria or urinary frequency. MSK: Patient denies arthralgias or myalgias. Skin: Patient denies rash, abscess or jaundice. Psych: Patient denies symptoms of uncontrolled depression or anxiety. Neuro: Patient denies headache, paresthesias or focal neurologic deficits. Allergy: Patient denies tongue swelling or urticaria. Hematology: Patient denies easy bleeding or easy bruisability. Endocrinology: Patient denies polyuria, polydipsia or polyphagia. 14 point review of systems otherwise negative save for positives noted above in HPI. Physical Exam Narrative General: Alert, Oriented x3, Cooperative, no pain HEENT: Atraumatic, PERRLA, EOMI, Normocephalic Oral: Moist Mucosa, herpes stomatitis Neck: Supple, No JVD Lungs: Diminished, Normal air movement, No rhonchi, No wheeze, No rales Cardiovascular: Tachycardic, Regular Rhythm, Normal S1, Normal S2, No murmurs Abdomen: Soft, tender, Non-Distended, No Hepato-splenomegaly Extremities: No edema, Capillary Refill Less than 3 Seconds Skin: No rashes, No breakdown Musculoskeletal: No Tenderness to Palpation of Joints or Extremities Neurological: No focal neurological deficits, Motor Exam 5/5 strength throughout, Sensory exam intact to light touch and pain Psych/Mental Status: Normal Affect, Appropriate Lab / Micro Data 08/30/24 06:30 08/30/24 06:30 Labs: Laboratory Results - last 24 hr 08/29/24 20:43: WBC 12.4 H, RBC 4.91, Hgb 14.4, Hct 42.9, MCV 87.4, MCH 29.3, MCHC 33.6, RDW Std Deviation 43.3, RDW Coeff of Mercedes 13.4, Plt Count 421, MPV 11.7, Immature Gran % (Auto) 0.500, Neut % (Auto) 69.5, Lymph % (Auto) 22.5, [place] % (Auto) 4.8, Eos % (Auto) 2.2, Baso % (Auto) 0.5, Absolute Neuts (auto) 8.6 H, Absolute Lymphs (auto) 2.78, Nucleated RBC % 0, Sodium 136, Potassium 3.7, Chloride 103, Carbon Dioxide 23.0, Anion Gap 11, BUN 10, Creatinine 0.68, Est GFR (MDRD) Af Amer 129, Est GFR (MDRD) Non-Af 107, BUN/Creatinine Ratio 14.8, Glucose 104, Calcium 9.2, Total Bilirubin 0.50, AST 32, ALT 37, Alkaline Phosphatase 255 H, Total Protein 8.2, Albumin 3.3, Globulin 4.9 H, Albumin/Globulin Ratio 0.7 L, Lipase 144, Serum , Qual NEGATIVE 08/29/24 23:10: Urine Color Yellow, Urine Clarity Clear, Urine pH 5.0, Ur Specific Atco 1.010, Urine Protein 15 H, Urine Glucose (UA) Normal, Urine Ketones Negative, Urine Occult Blood 25 H, Urine Nitrite Negative, Urine Bilirubin Negative, Urine Urobilinogen Normal, Ur Leukocyte Esterase 25 H, Urine RBC 0 SEEN, Urine WBC 0 SEEN, Ur Squamous Epith Cells 0-5 SEEN, Urine Bacteria 0 SEEN, Urine Mucus 0 SEEN 08/30/24 06:30: WBC 8.2, RBC 4.01 L, Hgb 11.4 L, Hct 35.7 L, MCV 89.0, MCH 28.4, MCHC 31.9 L D, RDW Std Deviation 44.6 H, RDW Coeff of Mercedes 13.6, Plt Count 286, MPV 11.2, Immature Gran % (Auto) 0.500, Neut % (Auto) 61.2, Lymph % (Auto) 29.8, [place] % (Auto) 5.4, Eos % (Auto) 2.7, Baso % (Auto) 0.4, Absolute Neuts (auto) 5.0, Absolute Lymphs (auto) 2.45, Nucleated RBC % 0, Sodium 137, Potassium 3.7, Chloride 109 H, Carbon Dioxide 21.0, Anion Gap 6, BUN 11, Creatinine 0.49 L, Estim Creat Clear Calc 130.36, Est GFR (MDRD) Af Amer 187, Est GFR (MDRD) Non-Af 154, BUN/Creatinine Ratio 22.4 H, Glucose 86, Calcium 8.2 L, Phosphorus 4.2, Magnesium 1.9, Total Bilirubin 0.50, AST 21, ALT 28, Alkaline Phosphatase 188 H, Total Protein 6.1 L, Albumin 2.4 L, Globulin 3.7, Albumin/Globulin Ratio 0.6 L, TSH 5.770 H Micro: Microbiology 08/30/24 Unknown Stool Clostridioides difficile (PCR) - Final Imaging Radiology Impression Abdomen/Pelvis CT 08/29/24 21:45 IMPRESSION: 1. Wall thickening of the transverse colon, ascending colon, and cecum as well as a long segment of wall thickening involving the transverse ileum and distal ileum likely relating to an enterocolitis. No bowel obstruction is present. There are mildly prominent mesenteric lymph nodes which are likely reactive. 2. Subtle peripancreatic stranding along the pancreatic head with adjacent multiple small lymph nodes. Correlate for mild acute pancreatitis. 3. Stable cystic foci involving the pancreas as above may relate to pseudocysts/cysts. 4. Additional findings as above. One or more dose reduction techniques were used (e.g., Automated exposure control, adjustment of the mA and/or kV according to patient size, use of iterative reconstruction technique). 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 Diagnosis usually involves genetic testing to identify the specific SPINK1 mutation, which is often the N34S variant.? Typically , patients with SPINK1-associated pancreatitis may experience recurrent episodes of severe abdominal pain, nausea, vomiting, and elevated pancreatic enzymes in blood tests, often starting at a young age.The SPINK1 mutation can also lower the threshold for developing pancreatitis and can be inherited along with the CTFR or CTRC mutations, increasing the patient?s chances of developing pancreatitis. Typically a laparoscopic [place] procedure can be performed, aiming to alleviate symptoms and improve pancreatic drainage. She should also be on pancreatic enzymes with each meal. Recommendation is to continue conservative therapy with pancreatic enzymes and a daily stool softener as the pancreatic enzymes can cause constipation. Recommend MRCP to see if she is developing signs of chronic pancreatitis. (2) Abnormal CT scan: PLAN: It did show some enterocolitis. She was having some diarrhea. She has not had any bowel movement since being in the hospital. I do recommend checking stool studies. She may benefit from an upper or lower endoscopy to evaluate upper lower GI tract. This would determine if she would benefit from steroid therapy. We did some IgG4 testing along with autoimmune testing and it did not reveal any signs of inflammatory bowel disease. However it is still a possibility with the diffuse lymphadenopathy that seen on imaging. Charges/Coding Visit Charges Inpatient E&M: 78206 Init Hosp L3
--- NOTE | 2024-08-30 17:41 | MRI_ITS ---
PROCEDURE: MRCP ABDOMEN WITHOUT CONTRAST REASON FOR EXAM: Pain, chronic pancreatitis TECHNIQUE: Multiplanar, multisequence MRI of the upper abdomen without intravenous gadolinium-based contrast. COMPARISON: 08/29/2024 FINDINGS: Probable mild hepatic steatosis. Subtle hypodense lesion in the anterior left hepatic lobe near the falciform ligament measuring 1.7 cm. And adrenal glands are intact. Gallbladder is absent. No significant biliary ductal dilation. No biliary stricturing or filling defects. Nondilated pancreatic duct. Subtle edema surrounding the pancreatic head. No discrete pancreatic mass, cystic lesions or organized fluid collection. Kidneys are intact. No hydronephrosis. Lung bases are clear. No aneurysm or bulky adenopathy. MRI/MRCP Abdomen without Contrast IMPRESSION: 1. No pancreatic or biliary ductal dilation. No choledocholithiasis. 2. Mild edema about the pancreatic head likely related to acute pancreatitis. Reading Location: [place]
[2024-08-30] MEDS: LORazepam 1 MG Tablet PO (19:04)
[2024-08-31] MEDS: metroNIDAZOLE 500 MG/100 ML BAG 100 MG IV ×4 (02:28→23:02)
[2024-08-31] MEDS: oxyCODONE 5 MG Tablet PO ×5 (03:46→23:00)
[2024-08-31 03:48] VITALS: BP 120/89; PULSE 96; RESP 18; TEMP 36.9; O2SAT 97
[2024-08-31] MEDS: HYDROmorphone 1 MG/ML Syringe IV ×6 (05:25→23:44)
[2024-08-31] MEDS: WATER IV ×2 (05:25→17:04)
[2024-08-31] MEDS: ACYCLOVIR IV ×2 (05:25→17:04)
[2024-08-31] MEDS: DEXTROSE 5% IV ×2 (05:25→17:04)
[2024-08-31] MEDS: Enoxaparin 40 MG/0.4 ML Syringe SC (05:28)
[2024-08-31] MEDS: DOCOSANOL TOPICAL ×5 (05:28→22:54)
[2024-08-31 05:37] VITALS: BMI 23.6
[2024-08-31 07:40] LABS: ALB/GLOB Ratio 0.7 RATIO (0.9-2.4); AST(SGOT) 16 U/L (15-37); Alanine Aminotransfer ALT/SGPT 20 U/L (13-56); Albumin, Serum 2.6 g/dL (3.2-5.0); Alkaline Phosphatase 181 U/L (45-117); Anion Gap 8 (5-15); BUN 4 mg/dL (7-18); Calcium,Total 8.6 mg/dL (8.5-10.1); Chloride 112 mmol/L (98-107); EST Glomerular Filtration Rate 150 mL/min (>60); Est Glom Filt Rate - Afr Amer 182 mL/min (>60); Estimated Creatinine Clearance 127.76 ml/min; Globulin 3.6 g/dL (2.2-4.2); Glucose 157 mg/dL (74-106); Potassium 3.5 mmol/L (3.5-5.1); Protein, Total 6.2 g/dL (6.4-8.2); Sodium Level 141 mmol/L (136-145)
[2024-08-31 07:49] VITALS: BP 96/61; PULSE 89; RESP 18; TEMP 36.6; O2SAT 98
[2024-08-31 07:55] VITALS: RESP 16
[2024-08-31] MEDS: Pantoprazole Sodium 40 MG in 0.9% Normal Saline (100mL MB+) 100 ML 330 MG IV ×2 (09:12→20:30)
--- NOTE | 2024-08-31 12:18 | PN.HOSP_ITS ---
Subjective Subjective A slight improvement in her abdominal pain and she is able to tolerate a diet without any worsening abdominal pain MRCP was unremarkable Objective Data Objective Data Vital Signs: Vital Signs Temp Pulse Resp BP Pulse Ox O2 Del Method 98 F 89 16 96/61 98 Room Air 08/31/24 07:49 08/31/24 07:49 08/31/24 07:55 08/31/24 07:49 08/31/24 07:49 08/31/24 07:55 Oxygen Delivery Method Room Air Weight: 128 lb 8.472 oz Body Mass Index (BMI) 23.6 Intake & Output: Intake and Output for Last 24 Hours 08/30/24 08/31/24 09/01/24 03:59 03:59 03:59 Intake Total 260 / 260 4528.6 / 4528.6 521.2 / 521.2 Balance 260 / 260 4528.6 / 4528.6 521.2 / 521.2 Lab / Micro Data 08/30/24 06:30 08/31/24 06:03 Labs: Laboratory Results - last 24 hr 08/31/24 06:03: Sodium 141, Potassium 3.5, Chloride 112 H, Carbon Dioxide 21.0, Anion Gap 8, BUN 4 L, Creatinine 0.50 L, Estim Creat Clear Calc 127.76, Est GFR (MDRD) Af Amer 182, Est GFR (MDRD) Non-Af 150, BUN/Creatinine Ratio 8.0 L, G lucose 157 H, Calcium 8.6, Total Bilirubin 0.30, AST 16, ALT 20, Alkaline Phosphatase 181 H, Total Protein 6.2 L, Albumin 2.6 L, Globulin 3.6, A lbumin/Globulin Ratio 0.7 L Micro: Microbiology 08/30/24 Unknown Stool Enteric Bacteriology - Final 08/30/24 Unknown Stool Clostridioides difficile (PCR) - Final Radiography Diagnostic Testing: Radiology Impression MRCP 08/30/24 17:41 IMPRESSION: 1. No pancreatic or biliary ductal dilation. No choledocholithiasis. 2. Mild edema about the pancreatic head likely related to acute pancreatitis. Reading Location: [facility] Physical Exam Narrative General: Alert, Oriented x3, Cooperative, no pain HEENT: Atraumatic, PERRLA, EOMI, Normocephalic Oral: Moist Mucosa, herpes stomatitis Neck: Supple, No JVD Lungs: Diminished, Normal air movement, No rhonchi, No wheeze, No rales Cardiovascular: Tachycardic, Regular Rhythm, Normal S1, Normal S2, No murmurs Abdomen: Soft, tender, Non-Distended, No Hepato-splenomegaly Extremities: No edema, Capillary Refill Less than 3 Seconds Skin: No rashes, No breakdown Musculoskeletal: No Tenderness to Palpation of Joints or Extremities Neurological: No focal neurological deficits, Motor Exam 5/5 strength throughout, Sensory exam intact to light touch and pain Psych/Mental Status: Normal Affect, Appropriate Assessment & Plan Assessment/Plan (1) Acute on chronic pancreatitis: (2) SPINK1 gene mutation: (3) Pseudocyst of pancreas: (4) Intractable nausea and vomiting: PLAN: Plan 1. Acute on chronic pancreatitis with a history of choledocholithiasis and a biliary stricture/IBS/cannabis use ? Her pancreatitis is due to a [place] 1 gene mutation ?MRCP was unremarkable, she needs to follow-up as an outpatient for possible PSO procedure given her genetic abnormalities leading to her chronic pancreatitis ?Sips to help manage her pain with oxycodone, and will continue with Dilaudid, clear liquids is not worsening her pains will continue 2. A transverse colitis ? Continue with Rocephin and Flagyl, will not advance her diet until symptoms improve ? Continue with IV Zofran ? Stool studies so far negative though ova and parasites are still pending 3. Herpes stomatitis ? Continue with acyclovir 4. GERD ? Stable ? Continue with PPI DVT: Lovenox Charges/Coding Visit Charges Inpatient E&M: 51612 Subs Hosp L2
[2024-08-31] MEDS: 0.9% Saline Lock 10 ML Syringe IV ×2 (12:23→15:55)
[2024-08-31 12:24] VITALS: BP 104/70; PULSE 89; RESP 18; TEMP 37.1; O2SAT 98
--- NOTE | 2024-08-31 12:34 | CT_ITS ---
EXAM: CT Head Without Contrast. CLINICAL HISTORY: Dilated right pupil. COMPARISON: None. TECHNIQUE: Helical imaging of CT head was performed without IV contrast. One or more of the following dose reduction techniques were used: automated exposure control, adjustment of the mA and/or kV according to patient size, use of iterative reconstruction technique. FINDINGS: BRAIN PARENCHYMA: No evidence for acute hemorrhage or large territory infarct. EXTRA-AXIAL SPACES: No acute extra-axial fluid collection identified. Basal cisterns are patent. MIDLINE SHIFT: None. VENTRICLES: No evidence of hydrocephalus. SCALP SOFT TISSUES: No significant abnormality. CALVARIUM: No acute process. VISUALIZED PARANASAL SINUSES: No air-fluid levels. MASTOID AIR CELLS: Grossly clear. CT/Brain/Head without Contrast IMPRESSION: No acute abnormality is seen. Reading Location: [place] [id number]
[2024-08-31 15:00] VITALS: RESP 18
--- NOTE | 2024-08-31 17:49 | PN_ITS ---
Progress Note Patient was seen and examined today. She is feeling a little bit better today. I would like her diet advanced. Physical Exam Narrative General: Alert, Oriented x3, Cooperative, no pain HEENT: Atraumatic, PERRLA, EOMI, Normocephalic Oral: Moist Mucosa, herpes stomatitis Neck: Supple, No JVD Lungs: Diminished, Normal air movement, No rhonchi, No wheeze, No rales Cardiovascular: Tachycardic, Regular Rhythm, Normal S1, Normal S2, No murmurs Abdomen: Soft, tender, Non-Distended, No Hepato-splenomegaly Extremities: No edema, Capillary Refill Less than 3 Seconds Skin: No rashes, No breakdown Musculoskeletal: No Tenderness to Palpation of Joints or Extremities Neurological: No focal neurological deficits, Motor Exam 5/5 strength throughout, Sensory exam intact to light touch and pain Psych/Mental Status: Normal Affect, Appropriate Assessment & Plan Assessment/Plan (1) Acute pancreatitis: PLAN: 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 Diagnosis usually involves genetic testing to identify the specific SPINK1 mutation, which is often the N34S variant.? Typically , patients with SPINK1-associated pancreatitis may experience recurrent episodes of severe abdominal pain, nausea, vomiting, and elevated pancreatic enzymes in blood tests, often starting at a young age.The SPINK1 mutation can also lower the threshold for developing pancreatitis and can be inherited along with the CTFR or CTRC mutations, increasing the patient?s chances of developing pancreatitis. Typically a laparoscopic [place] procedure can be performed, aiming to alleviate symptoms and improve pancreatic drainage. She should also be on pancreatic enzymes with each meal. Recommendation is to continue conservative therapy with pancreatic enzymes and a daily stool softener as the pancreatic enzymes can cause constipation. Recommend MRCP to see if she is developing signs of chronic pancreatitis. (2) Abnormal CT scan: PLAN: It did show some enterocolitis. She was having some diarrhea. She has not had any bowel movement since being in the hospital. I do recommend checking stool studies. She may benefit from an upper or lower endoscopy to evaluate upper lower GI tract. This would determine if she would benefit from steroid therapy. We did some IgG4 testing along with autoimmune testing and it did not reveal any signs of inflammatory bowel disease. However it is still a possibility with the diffuse lymphadenopathy that seen on imaging. PLAN: Plan 08/31/2024-she is not having any diarrhea and her stool studies were negative. It is okay to stop antibiotics. Recommend to advance her diet for her pancreatitis. Workup in progress as an outpatient for possible surgical treatment of acute recurrent pancreatitis. Visit Charges Inpatient E&M: 84508 Subs Hosp L3
[2024-08-31 20:23] VITALS: BP 147/118; PULSE 92; RESP 15; TEMP 36.9; O2SAT 99
[2024-08-31] MEDS: Ceftriaxone 1 GM/50 ML BAG IV (22:30)
[2024-09-01] MEDS: DEXTROSE 5% IV ×2 (00:35→05:47)
[2024-09-01] MEDS: ACYCLOVIR IV ×2 (00:35→05:47)
[2024-09-01] MEDS: WATER IV ×2 (00:35→05:47)
[2024-09-01 03:44] VITALS: BP 108/63; PULSE 75; RESP 15; TEMP 36.6; O2SAT 97
[2024-09-01] MEDS: HYDROmorphone 1 MG/ML Syringe IV ×4 (03:50→13:54)
[2024-09-01] MEDS: Enoxaparin 40 MG/0.4 ML Syringe SC (05:48)
[2024-09-01] MEDS: DOCOSANOL TOPICAL ×2 (05:49→10:25)
[2024-09-01] MEDS: oxyCODONE 5 MG Tablet PO ×2 (05:54→11:28)
[2024-09-01 06:00] VITALS: BMI 24.5
[2024-09-01] MEDS: metroNIDAZOLE 500 MG/100 ML BAG 100 MG IV (06:55)
[2024-09-01 08:33] VITALS: BP 98/61; PULSE 87; RESP 16; TEMP 36.6; O2SAT 99
[2024-09-01] MEDS: Pantoprazole Sodium 40 MG in 0.9% Normal Saline (100mL MB+) 100 ML 330 MG IV (08:52)
[2024-09-01] MEDS: 0.9% Saline Lock 10 ML Syringe IV (10:27)
--- NOTE | 2024-09-01 11:58 | PCM.PN.HOSP ---
Subjective Subjective Still with abdominal pain, food does not necessarily worsen the pain but she is also not feeling that her pain is significantly improved from when she came in Objective Data Objective Data Vital Signs: Vital Signs Temp Pulse Resp BP Pulse Ox O2 Del Method 97.9 F 87 16 98/61 99 Room Air 09/01/24 08:33 09/01/24 08:33 09/01/24 08:33 09/01/24 08:33 09/01/24 08:33 09/01/24 08:33 Oxygen Delivery Method Room Air Weight: 133 lb 9.602 oz Body Mass Index (BMI) 24.5 Intake & Output: Intake and Output for Last 24 Hours 08/31/24 09/01/24 09/02/24 03:59 03:59 03:59 Intake Total 4528.6 / 4528.6 2453.6 / 2453.6 471.2 / 471.2 Balance 4528.6 / 4528.6 2453.6 / 2453.6 471.2 / 471.2 Lab / Micro Data 08/30/24 06:30 08/31/24 06:03 Micro: Microbiology 08/30/24 15:45 Stool Stool Lactoferrin - Final 08/30/24 Unknown Stool Enteric Bacteriology - Final 08/30/24 Unknown Stool Clostridioides difficile (PCR) - Final Radiography Diagnostic Testing: Radiology Impression Brain CT 08/31/24 12:34 IMPRESSION: No acute abnormality is seen. Reading Location: [place] [address] Physical Exam Narrative General: Alert, Oriented x3, Cooperative, no pain HEENT: Atraumatic, right mydriasis improved, EOMI, Normocephalic Oral: Moist Mucosa, herpes stomatitis Neck: Supple, No JVD Lungs: Diminished, Normal air movement, No rhonchi, No wheeze, No rales Cardiovascular: Regular rate, Regular Rhythm, Normal S1, Normal S2, No murmurs Abdomen: Soft, tender, Non-Distended, No Hepato-splenomegaly Extremities: No edema, Capillary Refill Less than 3 Seconds Skin: No rashes, No breakdown Musculoskeletal: No Tenderness to Palpation of Joints or Extremities Neurological: No focal neurological deficits, Motor Exam 5/5 strength throughout, Sensory exam intact to light touch and pain Psych/Mental Status: Normal Affect, Appropriate Assessment & Plan Assessment/Plan (1) Acute on chronic pancreatitis: (2) SPINK1 gene mutation: (3) Pseudocyst of pancreas: (4) Intractable nausea and vomiting: PLAN: Plan 1. Acute on chronic pancreatitis with a history of choledocholithiasis and a biliary stricture/IBS/cannabis use ? Her pancreatitis is due to a [place] 1 gene mutation ?MRCP was unremarkable, she needs to follow-up as an outpatient for possible PSO procedure given her genetic abnormalities leading to her chronic pancreatitis ?Sips to help manage her pain with oxycodone, and will continue with Dilaudid, clear liquids is not worsening her pains will continue 2. A transverse colitis ?Discussed with GI, will discontinue antibiotics ? Continue with IV Zofran ? Stool studies so far negative though ova and parasites are still pending 3. Herpes stomatitis ? Continue with acyclovir 4. GERD ? Stable ? Continue with PPI 5. Right mydriasis ? CT of the brain was negative, she has no other neurological symptoms ? It is felt that this was due to the scopolamine patch which she may have touched the area and rubbed her eye ? This is improving today we will continue to monitor DVT: Lovenox Charges/Coding Visit Charges Inpatient E&M: 35559 Subs Hosp L2
--- NOTE | 2024-09-01 13:02 | DCINST_ITS ---
Discharge Instructions Diet Discharge Diet: Soft diet and Low fat / Low cholesterol DC O2, CPAP, BIPAP needs Home O2 Discharge instructions: No Dressing / Incision Discharge Activity: Return to Normal Activity Dressing / Incision Call your doctor if you observe: Fever of 101 or Higher, Shortness of breath, Dizziness, Fainting spells, Swelling in the ankles, Chest pain and Increased palpitations (irregular heartbeat) Follow Up Care Test Results: Test results from this visit will be discussed in further detail at your follow- up appointment, if applicable. Discharge Plan Admission Admit Date/Time: 08/30/24 00:42 Attending Provider: Rehan Reddy Primary Care Provider: Rossi Jones Consulting Providers: Kenrick Moraes; Raj Miller Discharge Orders/Prescriptions Prescriptions: New oxycodone 5 mg Tablet 5 mg PO Q4H PRN PRN (Reason: Pain Score 4-10) 3 Days Qty: 15 0RF Continued thiamine HCl (vitamin B1) 100 mg tablet 100 mg PO QDAY Qty: 30 5RF folic acid 1 mg tablet 1 mg PO DAILY Qty: 30 5RF tramadol 100 mg tablet 100 mg PO Q8H PRN (Reason: pain) Qty: 60 1RF sucralfate [Carafate] 100 mg/mL suspension 10 ml PO QAC Qty: 1000 1RF cyclobenzaprine 5 mg tablet 5 mg PO DAILY naloxone 4 mg/actuation spray,non-aerosol 1 spray INTRANASAL X1 acetaminophen 500 mg Tablet 1,000 mg PO Q8 PRN (Reason: pain) dicyclomine 20 mg tablet 20 mg PO TID Qty: 90 1RF omeprazole 40 mg capsule,delayed release(DR/EC) 40 mg PO DAILY 30 Days Qty: 30 2RF diazepam [Valium] 5 mg tablet 5 mg PO ONCE Qty: 1 0RF Rx Instructions: take 30 minutes prior to MRI, must have a putaway driver to drive you home after MRI Referrals / Follow Up: Rossi Jones DO [Primary Care Provider] - Within 1 Week Raj Miller DO [Med Staff - Active Staff] - Within 2 Weeks Disposition Disposition (needs filled in before D/C Order can be placed): Home, Self Care
--- NOTE | 2024-09-01 13:31 | CASEMGMT ---
Addendum entered by Cornelius Rivera 09/01/24 13:35: Pt denies having other discharge needs/concerns. Original Note: RN CM NOTE: Discharge order is in. RN CM to room. Pt sitting up in bed. She is aware Rx for pain med has been e-scribed to [facility] retail pharm and asks for it to be delivered to her room. Call placed to pharmacy and they were notified. Pt states she would like pain medication now, before being discharged. Will notify pt's RN, G[place]. Connor CLARKN RN CM
--- NOTE | 2024-09-01 16:01 | PCM.DC.SUM ---
Providers Date of Admission: 08/30/24 Primary Care Physician: Dr. Rossi Jones, Consultations 08/30/24 07:02 Consult: Gastroenterology Routine Consulting Provider: Raj Pearson Reason for Consult: pancreatitis EMERGENT Consult: No MD Notified: Yes Date Notified: 08/30/24 Time Notified: 08:05 Method of Notification: Text Reason For Visit: ACUTE PANCREATITIS, SEVERE ENTEROCOLITIS, Diagnosis Discharge Diagnosis (1) Acute on chronic pancreatitis: Status: Chronic Code(s): K85.90 - Acute pancreatitis without necrosis or infection, unspecified; K86.1 - Other chronic pancreatitis (2) SPINK1 gene mutation: Status: Acute Code(s): Z15.89 - Genetic susceptibility to other disease (3) Pseudocyst of pancreas: Status: Acute Code(s): K86.3 - Pseudocyst of pancreas (4) Intractable nausea and vomiting: Status: Acute Code(s): R11.2 - Nausea with vomiting, unspecified Medications at Discharge Home Medications acetaminophen 500 mg tablet 1,000 mg PO Q8 PRN pain 07/18/24 cyclobenzaprine 5 mg tablet 5 mg PO DAILY muscle spasms 07/18/24 naloxone 4 mg/actuation nasal spray 1 spray intranasal X1 too much narcotics 07/18/24 dicyclomine 20 mg tablet 20 mg PO TID irritable bowel #90 TABLETS 08/14/24 omeprazole 40 mg capsule,delayed release 40 mg PO DAILY GERD 30 days #30 caps 08/14/24 folic acid 1 mg tablet 1 mg PO DAILY SUPPLEMENT #30 tabs 08/17/24 sucralfate 100 mg/mL oral suspension (Carafate) 10 ml PO QAC PANCREATITIS #1,000 mL 08/17/24 thiamine HCl (vitamin B1) 100 mg tablet 100 mg PO QDAY SUPPLEMENT #30 tabs 08/17/24 tramadol 100 mg tablet 100 mg PO Q8H PRN pain #60 tabs 08/17/24 diazepam 5 mg tablet (Valium) 5 mg PO ONCE mri #1 TAB 08/24/24 oxycodone 5 mg tablet 5 mg PO Q4H PRN PRN Pain Score 4-10 3 days #15 tabs 09/01/24 Hospital Course Operations None Procedures None Summary of Care Provided Minutes Spent on Discharge: 34 Hospital Course: Per HPI: FEROZ CHEEK, is a 33 F with a past medical history of 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 pearson of gastroenterology, history of pancreatic pseudocyst, history of choledocholithiasis; with subsequent cholecystectomy, IBS of diarrheal type; on prn dicyclomine, GERD; on omeprazole and sucralfate, chronic anemia, history of asthma, RLS, history of migraine headaches, history of , history of cannabis abuse, history of tobacco abuse, chronic pain syndrome; on prn tramadol q. 8 hours and history of depression with anxiety; on prn diazepam who presents to [facility] ER complaining of abdominal pain, nausea and vomiting. Ms. Cheek reports her symptoms began earlier today with a gradual-onset of progressively worsening severe abdominal pain that was focused mainly in her upper abdomen, Left greater than Right after she babysat a friend's children who was sick with a viral GI illness with patient suspecting she may have contracted an illness from one of the children. She then developed nausea with bilious emesis with her severe pain not made better or worse by anything. She admits her symptoms are similar to her previous flares of acute pancreatitis - but this episode is worse. She denies associated fever, chills, coffee-ground emesis, hematemesis, chest pain or shortness of breath but she does admit to chronic diarrhea and new herpetic lesions breaking out around her lips. In the ER she was noted to have CT evidence of wall thickening of the transverse colon, ascending colon and cecum as well as a long segment of a wall thickening of the transverse ileum and distal ileum likely relating to an Enterocolitis with no bowel obstruction present and mildly prominent mesenteric lymph nodes which are likely reactive in addition to subtle peripancreatic stranding along the pancreatic head with adjacent multiple small lymph nodes correlate for mild acute pancreatitis and stable cystic foci involving the pancreas likely related to pseudocysts with laboratory evidence of Leukocytosis of 12.4 K present on admission complicated by clinical evidence of Acute Herpes Labialis with Stomatitis in addition to severe persistent abdominal pain with intractable nausea and vomiting and she was then admitted to the general medical floor for ongoing care for status expected to extend beyond 2 midnights. Hospital Course: 1. Acute on chronic pancreatitis with a history of choledocholithiasis and biliary stricture in the setting of a [place] 1 heterozygous gene mutation/IBS/cannabis use?33-year-old female with a [place] 1 mutation leading to chronic pancreatitis. During this admission there is also question for transverse colitis however stool samples were negative so antibiotics were discontinued in discussion with GI. MRCP was also unremarkable and she continues to need to follow-up with surgery at a tertiary center for a puestow procedure. She had not really advance her diet with significant intake however she request to be discharged today because she lost her childcare there and had no one to be able to take care of her children at home. Low threshold for readmission given her significant tach and chronic issues. Will provide oxycodone on discharge and recommend outpatient follow-up with her PCP as well as gastroenterology. 2. Right mydriasis?felt to be due to the scopolamine patch has been removed, there is a possibility that she had removed it or had come in contact with the area CT scan of her brain was unremarkable and she had gone from approximately a 10 mm pupil dilation down to about a 6 mm dilation today. I had discussed with her that if it gets worse she needs to return to the hospital for further imaging. Physical Exam Narrative General: Alert, Oriented x3, Cooperative, no pain HEENT: Atraumatic, right mydriasis improved, EOMI, Normocephalic Oral: Moist Mucosa, herpes stomatitis Neck: Supple, No JVD Lungs: Diminished, Normal air movement, No rhonchi, No wheeze, No rales Cardiovascular: Regular rate, Regular Rhythm, Normal S1, Normal S2, No murmurs Abdomen: Soft, tender, Non-Distended, No Hepato-splenomegaly Extremities: No edema, Capillary Refill Less than 3 Seconds Skin: No rashes, No breakdown Musculoskeletal: No Tenderness to Palpation of Joints or Extremities Neurological: No focal neurological deficits, Motor Exam 5/5 strength throughout, Sensory exam intact to light touch and pain Psych/Mental Status: Normal Affect, Appropriate Weight / BMI Weight Weight: 133 lb 9.602 oz Body Mass Index (BMI) 24.5 ABG / Lab / Microbiology Data 08/30/24 06:30 08/31/24 06:03 Microbiology: Microbiology 08/30/24 15:45 Stool Stool Lactoferrin - Final 08/30/24 Unknown Stool Enteric Bacteriology - Final 08/30/24 Unknown Stool Clostridioides difficile (PCR) - Final D/C Instructions Discharge Diet: Soft diet and Low fat / Low cholesterol Call your doctor if you observe: Fever of 101 or Higher, Shortness of breath, Dizziness, Fainting spells, Swelling in the ankles, Chest pain and Increased palpitations (irregular heartbeat) DC O2, CPAP, BIPAP Needs Home O2 Discharge instructions: No Meaningful Use Info Meaningful Use Meaningful Use Diagnoses (Choose all that apply): None applicable Ischemic Stroke Statin Dosing Therapy Reference: STATIN DOSE THERAPY REFERENCE: * Patients > 75 years receive moderate or high dose statin therapy. * Patients 75 years or YOUNGER should receive HIGH intensity statin dose unless contraindicated. You will be required to document reason for non-treatment if statin daily dose does not meet guidelines. HIGH DOSE STATIN THERAPY DAILY Atorvastatin > than or = to 40 mg Rosuvastatin > than or = to 20 mg Amlodipine + Atorvastatin > than or = to 2.5/40 mg Ezetimibe + Simvastatin 10/80 mg Simvastatin 80mg Discharge Plan Admission Admit Date/Time: 08/30/24 00:42 Attending Provider: Rehan Reddy Primary Care Provider: Rossi Jones Consulting Providers: Kenrick Moraes; Raj Pearson Discharge Orders/Prescriptions Prescriptions: New oxycodone 5 mg Tablet 5 mg PO Q4H PRN PRN (Reason: Pain Score 4-10) 3 Days Qty: 15 0RF Continued thiamine HCl (vitamin B1) 100 mg tablet 100 mg PO QDAY Qty: 30 5RF folic acid 1 mg tablet 1 mg PO DAILY Qty: 30 5RF tramadol 100 mg tablet 100 mg PO Q8H PRN (Reason: pain) Qty: 60 1RF sucralfate [Carafate] 100 mg/mL suspension 10 ml PO QAC Qty: 1000 1RF cyclobenzaprine 5 mg tablet 5 mg PO DAILY naloxone 4 mg/actuation spray,non-aerosol 1 spray INTRANASAL X1 acetaminophen 500 mg Tablet 1,000 mg PO Q8 PRN (Reason: pain) dicyclomine 20 mg tablet 20 mg PO TID Qty: 90 1RF omeprazole 40 mg capsule,delayed release(DR/EC) 40 mg PO DAILY 30 Days Qty: 30 2RF diazepam [Valium] 5 mg tablet 5 mg PO ONCE Qty: 1 0RF Rx Instructions: take 30 minutes prior to MRI, must have a road driver to drive you home after MRI Referrals / Follow Up: Rossi Jones DO [Primary Care Provider] - Within 1 Week Friend,DO Raj [Med Staff - Active Staff] - Within 2 Weeks Disposition Disposition (needs filled in before D/C Order can be placed): Home, Self Care Charges/Coding Visit Charges Inpatient E&M: 07306 Disch Hosp >30min
== END 2024-09-01 14:33 | disposition home or self-care (01) | DRG 282 ==
LOC: ED 23:08 → MS3 08-30 04:34
PROVIDERS: Admitting Provider Internal Medicine; Emergency Provider Emergency Medicine; PCP Family Medicine; Visit Provider Family Medicine
DX: K85.90 Acute pancreatitis without necrosis or infection, unspecified (principal); B00.1 Herpesviral vesicular dermatitis; F12.10 Cannabis abuse, uncomplicated; D64.9 Anemia, unspecified; K86.1 Other chronic pancreatitis; F17.210 Nicotine dependence, cigarettes, uncomplicated; F41.8 Other specified anxiety disorders; K21.9 Gastro-esophageal reflux disease without esophagitis; K58.9 Irritable bowel syndrome, unspecified; H57.04 Mydriasis; Z82.5 Family history of asthma and other chronic lower respiratory diseases; K86.3 Pseudocyst of pancreas; Z79.891 Long term (current) use of opiate analgesic; B00.2 Herpesviral gingivostomatitis and pharyngotonsillitis; Z15.89 Genetic susceptibility to other disease
CPT/HCPCS: 36415; 70450; 74177; 74181; 80053; 81001; 83630; 83690; 83735; 84100; 84443; 84703; 85025; 87177; 87209; 87493; 87506; 99283; Q9967; A4216; J2405

== ENCOUNTER → 2024-09-06 | Outpatient (CLI) | payer MEDICAID, SELFPAY ==
[2024-09-06 10:52] LABS: Absolute Lymphocyte Count 3.03 X10^3/uL (0.83-4.51); Absolute Neutrophil Count 6.1 X10^3/uL (2.0-7.7); Basophil# 0.05 X10^3/uL; Basophil% 0.5 % (0-1); Hematocrit 42.7 % (37-47); Hemoglobin 13.9 g/dL (12.0-15.0); Lymphocyte # 3.03 X10^3/ul (0.83-4.51); Lymphocyte % 30.5 % (19-41); Mean Corp Hgb Conc 32.6 g/dL (32-36); Mean Corpuscular Volume 89.1 fL (81-99); Mean Platelet Vol. 11.2 fl (6.2-12.0); Monocyte# 0.49 X10^3/uL; Monocyte% 4.9 % (0-10); NRBC Flagged by Analyzer 0 % (0-5); Neutrophil # 6.12 X10^3/uL (2.7-7.7); Neutrophil % 61.8 % (47-70); Platelet Count 387 K/mm3 (150-450); RBC Distribution Width CV 14.5 % (11.6-14.6); RBC Distribution Width SD 46.5 fl (35.1-43.9); Red Blood Count 4.79 M/mm3 (4.2-5.4); White Blood Count 9.9 K/mm3 (4.4-11.0)
[2024-09-06 11:14] LABS: AST(SGOT) 22 U/L (15-37); Alanine Aminotransfer ALT/SGPT 23 U/L (13-56); Albumin, Serum 3.6 g/dL (3.2-5.0); Alkaline Phosphatase 159 U/L (45-117); Bilirubin, Direct 0.17 mg/dL (0.00-0.30); Globulin 4.2 g/dL (2.2-4.2); Protein, Total 7.8 g/dL (6.4-8.2)
== END | disposition home or self-care (01) ==
LOC: LAB 10:37
PROVIDERS: PCP Family Medicine; Referring Provider Nurse Practitioner Acute Care; Visit Provider Nurse Practitioner Acute Care
DX: R93.89 Abnormal findings on diagnostic imaging of other specified body structures (principal); K52.9 Noninfective gastroenteritis and colitis, unspecified; R11.2 Nausea with vomiting, unspecified; R10.12 Left upper quadrant pain
CPT/HCPCS: 36415; 80076; 82784; 82977; 83516; 85025

== ENCOUNTER → 2024-09-26 | Outpatient (CLI) | payer MEDICAID, SELFPAY ==
[2024-09-26 18:19] LABS: Lipase 22 U/L (13-75)
== END | disposition home or self-care (01) ==
PROVIDERS: PCP Family Medicine; Referring Provider Nurse Practitioner Acute Care; Visit Provider Nurse Practitioner Acute Care
DX: R11.2 Nausea with vomiting, unspecified (principal); R10.13 Epigastric pain; R10.12 Left upper quadrant pain
CPT/HCPCS: 83690

== ENCOUNTER 2024-09-28 05:57 | Day surgery (SDC) | payer MEDICAID, SELFPAY ==
[2024-09-28] VITALS (8 sets, daily range): BP systolic 106–118; BP diastolic 65–87; PULSE 68–84; RESP 14–16; TEMP 36.1–36.7; O2SAT 99–100; BMI 21.9
--- NOTE | 2024-09-28 06:51 | PRE.ANES_ITS ---
ASA Classification* ASA Classification ASA Classification: 2 Assessment & Plan Anesthesia* Anesthesia Assessment Anesthesia Assessment: Discussed sedation and/or anesthesia options, risks, benefits, and alternatives with patient/parents/legal guardian/POA. Questions invited. The patient/parents/legal guardian/POA seems to understand and agrees to proceed with anesthesia plan. Reviewed the physical assessment, medical history, allergy history and patient home medications list prior to surgery/procedure/anesthetic and documented any changes. Performed airway and anesthesia risk assessments. Anesthesia Type Anesthesia Type: General History Source History Obtained from:: Patient and Chart Anesthesia Focused Assessment* Temperature: 97.5 F Pulse Rate: 78 Blood Pressure: 111/72 Respiratory Rate: 14 Pulse Ox: 99 Oxygen Delivery Method: Room Air Airway Assessment Mouth opens: >3 cm Mallampati Score: II Teeth Condition: Dentures (Left in ), Lower and Upper Focused Labs Anesthesia Preop lab: CBC WBC 9.9 K/mm3 (4.4-11.0) 09/06/24 10:41 09/06/24 RBC 4.79 M/mm3 (4.2-5.4) 09/06/24 10:41 09/06/24 Hgb 13.9 g/dL (12.0-15.0) 09/06/24 10:41 09/06/24 Hct 42.7 % (37-47) 09/06/24 10:41 09/06/24 Plt Count 387 K/mm3 (150-450) 09/06/24 10:41 09/06/24 CHEMISTRY Potassium 3.5 mmol/L (3.5-5.1) 08/31/24 06:03 08/31/24 Sodium 141 mmol/L (136-145) 08/31/24 06:03 08/31/24 Magnesium 1.9 mg/dL (1.6-2.6) 08/30/24 06:30 08/30/24 Phosphorus 4.2 mg/dL (2.5-4.9) 08/30/24 06:30 08/30/24 BUN 4 mg/dL (7-18) L 08/31/24 06:03 08/31/24 Creatinine 0.50 mg/dL (0.55-1.02) L 08/31/24 06:03 Glucose 157 mg/dL (74-106) H 08/31/24 06:03 08/31/24 POC Glucose 106 mg/dL (74-106) 02/12/24 23:06 02/12/24 TSH 5.770 uIU/mL (0.358-3.740) H 08/30/24 06:30 COAG PT 15.3 SECONDS (11.7-14.9) H 03/17/24 04:53 02/18 Urine Test Negative Negative 03/16/24 17:28 03/16/24 Pre-Assessment Diagnosis/Proposed Procedure Planned Operative Procedure(s): COLONOSCOPY Anesthesia History Anesthesia History - padded products inspector trimmer: Anesthesia History - padded products inspector trimmer Hx Hospitalization Yes: PANCREATITIS, GASTRITIS 09/22/24 14:15 Any Problems With Anesthesia No 09/22/24 14:15 Cholinesterase deficiency No 09/22/24 14:15 You/Your Family Experience No 09/22/24 14:15 fever (hyperthermia) with Relationship Recent Exposure to Contagious No 09/28/24 06:28 Disease Does patient have nerve No 09/22/24 14:15 stimulator Patient instructed to have device shut off --Does patient have Pacemaker No 09/28/24 06:31 or ICD? When Was Last Pacemaker Check QUESTION #4 FULL TEXT: You/Your Family Experience fever (hyperthermia) with Anesthesia Last Oral Intake Last Oral intake: Last Oral Intake NPO since 00:00 09/28/24 06:31 Meds taken in AM with sips of No 09/28/24 06:31 water? Meds patient instructed to take am of surgery PONV PONV - padded products inspector trimmer: PONV - padded products inspector trimmer Female Yes 09/22/24 14:15 HX of Motion Sickness Yes 09/22/24 14:15 HX of N/V After Surgery Yes 09/22/24 14:15 Non-Smoker Yes 09/22/24 14:15 Duration of Surgery greater No 09/22/24 14:15 than 60 minutes Number of Risk Factors 4 09/22/24 14:15 PONV Score Severe Risk 09/22/24 14:15 Height & Weight Height & Weight: Anesthesia: Height & Weight Height 5 ft 2 in 09/28/24 06:31 Weight: 54.4 kg 09/28/24 06:31 Body Mass Index (BMI) 21.9 09/28/24 06:31 Respiratory Assessment Respiratory Assessment - padded products inspector trimmer: Respiratory Tract Infection Hx - padded products inspector trimmer Hx Respiratory Tract Infection No 09/22/24 14:15 STOP Sleep Apnea STOP Sleep Apnea - padded products inspector trimmer: STOP Sleep Apnea - padded products inspector trimmer Hx Hypertension No 09/22/24 14:15 Hx Sleep Apnea No 09/22/24 14:15 CPAP BIPAP Do you snore loudly (louder No 09/22/24 14:15 than talking or can be heard Do you often feel tired/ No 09/22/24 14:15 fatigued/ sleepy during daytime? Has anyone observed you stop No 09/22/24 14:15 breathing during sleep? STOP Results Negative 09/22/24 14:15 QUESTION #5 FULL TEXT : Do you snore loudly (louder than talking or can be heard through closed doors)? 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 Specify any problems Hx of Preganancy in last 3 No 09/22/24 14:15 Months Nurse Filling Out Transfusion VLEHMAN 09/22/24 14:15 & Questions: Date: 09/22/24 09/22/24 14:15 Time: 14:22 09/22/24 14:15 Patient unable to answer at this time (ie. confused, unrespo /Reproduction History /Reproductive History - padded products inspector trimmer: /Reproductive Hx- padded products inspector trimmer Hx Now No 09/22/24 14:15 Gestational Age (in weeks): EDC: Hx Hx Para Hx Section SAB No 09/22/24 14:15 PFSH Medical History Wears dentures Wears glasses MRSA infection Anemia Easy bruising Injury of back Dietary restriction Smoker SPINK1 gene mutation Restless legs Anxiety Depression Asthma Migraines Cannabis use disorder Tobacco use Acute pancreatitis Choledocholithiasis Anemia Pancreatitis IBS (irritable bowel syndrome) Home Medications ?Medication ?Instructions ?Recorded ?Last Taken ?Type acetaminophen 500 mg tablet 1,000 mg PO Q8 PRN pain 09/27/24 History omeprazole 40 mg capsule,delayed 40 mg PO DAILY GERD 30 days #30 08/14/24 Rx release caps folic acid 1 mg tablet 1 mg PO DAILY SUPPLEMENT #3 0 tabs 08/17/24 09/27/24 Rx sucralfate 100 mg/mL oral 10 ml PO QAC PANCREATITIS #1 ,000 mL 08/17/24 09/27/24 Rx suspension (Carafate) thiamine HCl (vitamin B1) 100 mg 100 mg PO QDAY SUPPLE MENT #30 tabs 08/17/24 09/27/24 Rx tablet dicyclomine 20 mg tablet 20 mg PO TID irritable bowel #90 09/21/24 09/27/24 Rx TABLETS tramadol 100 mg tablet 100 mg PO Q8H PRN pain #60 t abs 09/21/24 09/26/24 Rx Allergy/AdvReac Type Severity Reaction Status Date / Time codeine AdvReac Intermediate Vomiting Verified 09/22/24 14:12 Family History Mother Diabetes Asthma Thyroid disorder IBS (irritable bowel syndrome) Father Diabetes Hypertension Surgical History Previous section S/P ERCP History of cholecystectomy Social History household members: significant other and children Smoking Status: Light Smoker (<10/day) alcohol intake: never details: no alcohol substance use type: marijuana Addt'l Information Additional Findings: EKG reviewed Review of Systems (Anesthesia) ROS Narrative System reviewed and no additional complaints, except as documented. Physical Exam Const alert, oriented x3 and average body habitus Resp normal respiratory effort, normal air movement and clear to auscultation bilaterally Cardio regular rate, regular rhythm, no murmurs and diaphoretic
--- NOTE | 2024-09-28 07:00 | EGD_PTH ---
PATIENT: FEROZ CHEEK LOC: EN U#:[id number] AGE/SX: 33/F ROOM: RE09/28/[address]: Dr. Raj Miller DO : 1990 BED: DIS: 09/28/2024 SPEC #: [id number] RECD: 09/28/24 11:19 STATUS: LANDY REBeth #: [id number] DOMINGA: 09/28/24 07:[address]: Raj Miller DEPT: SURGICAL PATHOLOGY RECD BY: Chris Onofre ENTERED: 09/28/24 11:19 SP TYPE: EGD BIOPSY KEATON DR: Dr. Rossi Jones DO Tissues: A - Ileum, NOS B - COLON BIOPSY C - Rectum, NOS Procedures: Surgery Specimen Level IV HEADER OPERATION: Colonoscopy, biopsy PRE-OP DIAGNOSIS: Abnormal CT scan, chronic diarrhea TISSUE SUBMITTED: A- Terminal ileum biopsy, B- Random colonic biopsy, C- Rectal biopsy MICROSCOPIC DIAGNOSIS A. Terminal ileum, biopsy: * Acute inflammation with focal ulceration - see note. * No granulomas or dysplasia seen. Note: The histologic differential diagnosis includes medication injury (eg: NSAIDs), infection, and bowel prep artifact. Recommend correlation with clinical and endoscopic findings. B. Colon, random, biopsy: * No specific pathologic change. * The histologic features of microscopic colitis are not demonstrated. C. Rectum, biopsy: * No specific pathologic change. MICROSCOPIC DESCRIPTION Slides are reviewed. GROSS DESCRIPTION A. Received in fixative is one container labeled with the patient's name and designated Terminal ileum biopsy. The specimen consists of multiple irregular fragments of light carlson soft tissue that in aggregate measure 1.2 x 0.8 x 0.2 cm. The specimen is totally submitted in one cassette. B. Received in fixative is one container labeled with the patient's name and designated Random colon biopsy. The specimen consists of multiple irregular fragments of light carlson soft tissue that in aggregate measure 1.6 x 0.7 x 0.2 cm. The specimen is totally submitted in one cassette. C Received in fixative is one container labeled with the patient's name and designated Rectal biopsy. The specimen consists of two irregular fragments of light carlson soft tissue that in aggregate measure 0.5 x 0.5 x 0.2 cm. The specimen is totally submitted in one cassette. 09/28/2024 CPT:94246x5
--- NOTE | 2024-09-28 07:04 | PCM.HP.STD ---
HPI - General General Date of Admission: 09/28/24 Date of Service: 09/28/24 Chief Complaint: Abnormal CT scan and abdominal pain HPI Narrative FEROZ CHEEK, is a 33 F who presents for endoscopic evaluation of an abnormal CT scan. 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 She also has a history of pancreatic pseudocyst, history of choledocholithiasis; with subsequent cholecystectomy, IBS of diarrheal type;chronic pain syndrome; Ms. Cheek reports her symptoms began earlier today with a gradual-onset of progressively worsening severe abdominal pain that was focused mainly in her upper abdomen, Left greater than Right after she babysat a friend's children who was sick with a viral GI illness with patient suspecting she may have contracted an illness from one of the children. She then developed nausea with bilious emesis with her severe pain not made better or worse by anything. She admits her symptoms are similar to her previous flares of acute pancreatitis - but this episode is worse. She denies associated fever, chills, coffee-ground emesis, hematemesis, chest pain or shortness of breath but she does admit to chronic diarrhea and new herpetic lesions breaking out around her lips. In the ER she was noted to have CT evidence of wall thickening of the transverse colon, ascending colon and cecum as well as a long segment of a wall thickening of the transverse ileum and distal ileum likely relating to an Enterocolitis with no bowel obstruction present and mildly prominent mesenteric lymph nodes which are likely reactive in addition to subtle peripancreatic stranding along the pancreatic head with adjacent multiple small lymph nodes correlate for mild acute pancreatitis and stable cystic foci involving the pancreas likely related to pseudocysts with laboratory evidence of Leukocytosis of 12.4 K present on admission complicated by clinical evidence of Acute Herpes Labialis with Stomatitis in addition to severe persistent abdominal pain with intractable nausea and vomiting [facility] Medical History Wears dentures Wears glasses MRSA infection Anemia Easy bruising Injury of back Dietary restriction Smoker SPINK1 gene mutation Restless legs Anxiety Depression Asthma Migraines Cannabis use disorder Tobacco use Acute pancreatitis Choledocholithiasis Anemia Pancreatitis IBS (irritable bowel syndrome) Home Medications ?Medication ?Instructions ?Recorded ?Last Taken ?Type acetaminophen 500 mg tablet 1,000 mg PO Q8 PRN pain 07/18/24 09/27/24 History omeprazole 40 mg capsule,delayed 40 mg PO DAILY GERD 30 days #30 08/14/24 09/27/24 Rx release caps folic acid 1 mg tablet 1 mg PO DAILY SUPPLEMENT #30 tabs 08/17/24 09/27/24 Rx sucralfate 100 mg/mL oral 10 ml PO QAC PANCREATITIS #1,000 mL 08/17/24 09/27/24 Rx suspension (Carafate) thiamine HCl (vitamin B1) 100 mg 100 mg PO QDAY SUPPLEMENT #30 tabs 08/17/24 09/27/24 Rx tablet dicyclomine 20 mg tablet 20 mg PO TID irritable bowel #90 09/21/24 09/27/24 Rx TABLETS tramadol 100 mg tablet 100 mg PO Q8H PRN pain #60 tabs 09/21/24 09/26/24 Rx Allergy/AdvReac Type Severity Reaction Status Date / Time codeine AdvReac Intermediate Vomiting Verified 09/22/24 14:12 Family History Mother Diabetes Asthma Thyroid disorder IBS (irritable bowel syndrome) Father Diabetes Hypertension Surgical History Previous section S/P ERCP History of cholecystectomy Social History household members: significant other and children Smoking Status: Light Smoker (<10/day) alcohol intake: never details: no alcohol substance use type: marijuana ROS Constitutional Constitutional: Denies fatigue, fever(s), poor appetite, weight gain or weight loss Gastrointestinal Gastrointestinal: Denies belching, bloating, change in bowel habits, change in stool character, chewing difficulty, coffee ground emesis, constipation, cramping, diarrhea, dyspepsia, dysphagia, early satiety, excessive flatus, fecal incontinence, heartburn, hematemesis, hematochezia, hemorrhoids, loose stools, melena, nausea, odynophagia, rectal bleeding, tenesmus, vomiting or weight changes Vital Signs Vital Signs Vital Signs: 09/28/24 06:28 09/28/24 06:31 09/28/24 06:53 Temperature 97.5 F L 97.5 F L Temperature Source Temporal Pulse Rate 78 78 Respiratory Rate 14 14 Respiratory Pattern Normal Blood Pressure 111/72 111/72 Blood Pressure Mean 85 Blood Pressure Source Monitor Blood Pressure Position Semi-Fowlers Blood Pressure Location Right Arm Pulse Ox 99 99 Oxygen Delivery Method Room Air Room Air Weight Weight: 119 lb 14.903 oz Body Mass Index (BMI) 21.9 Physical Exam Const alert, oriented x3, no apparent distress and healthy appearing General Appearance: cooperative GI normal to inspection, nondistended, normoactive bowel sounds, soft to palpation, non-tender and non-distended Percussion: normal to percussion Rectal Exam: deferred Assessment & Plan Assessment/Plan (1) Abnormal CT scan: (2) Chronic diarrhea: PLAN: Assessment & Plan Assessment/Plan (1) Acute pancreatitis: PLAN: Acute recurrent pancreatitis likely secondary to [place] 1 gene heterogenicity. Diagnosis usually involves genetic testing to identify the specific SPINK1 mutation, which is often the N34S variant.? Typically , patients with SPINK1-associated pancreatitis may experience recurrent episodes of severe abdominal pain, nausea, vomiting, and elevated pancreatic enzymes in blood tests, often starting at a young age.The SPINK1 mutation can also lower the threshold for developing pancreatitis and can be inherited along with the CTFR or CTRC mutations, increasing the patient?s chances of developing pancreatitis. Typically a laparoscopic [place] procedure can be performed, aiming to alleviate symptoms and improve pancreatic drainage. She should also be on pancreatic enzymes with each meal. Recommendation is to continue conservative therapy with pancreatic enzymes and a daily stool softener as the pancreatic enzymes can cause constipation. Recommend MRCP to see if she is developing signs of chronic pancreatitis. (2) Abnormal CT scan: PLAN: It did show some enterocolitis. She was having some diarrhea. She has not had any bowel movement since being in the hospital. I do recommend checking stool studies. She may benefit from a lower GI tract. This would determine if she would benefit from steroid therapy. We did some IgG4 testing along with autoimmune testing and it did not reveal any signs of inflammatory bowel disease. However it is still a possibility with the diffuse lymphadenopathy that seen on imaging.
--- NOTE | 2024-09-28 07:42 | OP.COLON_ITS ---
Patient Name: Jayla Kaiser Procedure Date: 09/28/2024 7:09 AM Date of : 1990 Age: 33 Procedure: Colonoscopy Indications: Generalized abdominal pain, Chronic diarrhea Providers: Raj Miller DO Referring MD: Rossi Doyle Do Medicines: Monitored Anesthesia Care Patient Profile: This is a 33 year old female. Refer to note in patient chart for documentation of history and physical. Last Colonoscopy: date unknown. Unable to locate last colonoscopy report. Complications: No immediate complications. Procedure: Pre-Anesthesia Assessment: - Prior to the procedure, a History and Physical was performed, and patient medications and allergies were reviewed. The patient is competent. The risks and benefits of the procedure and the sedation options and risks were discussed with the patient. All questions were answered and informed consent was obtained. Patient identification and proposed procedure were verified by the physician in the pre-procedure area. Mental Status Examination: alert and oriented. Airway Examination: normal oropharyngeal airway and neck mobility. Respiratory Examination: clear to auscultation. CV Examination: normal. ASA Grade Assessment: II - A patient with mild systemic disease. After reviewing the risks and benefits, the patient was deemed in satisfactory condition to undergo the procedure. The anesthesia plan was to use monitored anesthesia care (MAC). Immediately prior to administration of medications, the patient was re-assessed for adequacy to receive sedatives. The heart rate, respiratory rate, oxygen saturations, blood pressure, adequacy of pulmonary ventilation, and response to care were monitored throughout the procedure. The physical status of the patient was re-assessed after the procedure. After I obtained informed consent, the scope was passed under direct vision. Throughout the procedure, the patient's blood pressure, pulse, and oxygen saturations were monitored continuously. The Colonoscope was introduced through the anus and advanced to the terminal ileum. The colonoscopy was performed without difficulty. The patient tolerated the procedure well. The quality of the bowel preparation was adequate. The terminal ileum was photographed. Scope In: 7:19:37 AM Scope Withdrawal Time 0 hours 9 minutes 57 seconds Scope Out: 7:36:33 AM Total Procedure Duration Time 0 hours 16 minutes 56 seconds Findings: The perianal and digital rectal examinations were normal. An area of mildly congested mucosa was found in the rectum, in the sigmoid colon, in the ascending colon and in the cecum. Biopsies were taken with a cold forceps for histology. Verification of patient identification for the specimen was done. Estimated blood loss was minimal. Diffuse inflammation characterized by erosions, erythema, friability, granularity, scarring and aphthous ulcerations was found in the distal ileum and in the terminal ileum. The inflammation was moderate in severity. Biopsies were taken with a cold forceps for histology. Verification of patient identification for the specimen was done. Estimated blood loss was minimal. Impression: - Congested mucosa in the rectum, in the sigmoid colon, in the ascending colon and in the cecum. Biopsied. - Crohn's disease with ileitis. Inflammation was found. This was moderate in severity. Biopsied. Recommendation: - Discharge patient to home. - Resume previous diet. - Continue present medications. - Await pathology results. - Repeat colonoscopy to evaluate the response to therapy. Procedure Code(s): --- Professional --- 80174, Colonoscopy, flexible; with biopsy, single or multiple CPT copyright 2021 [employer]. All rights reserved. The codes documented in this report are preliminary and upon automation qa analyst review may be revised to meet current compliance requirements. Raj Miller DO 09/28/2024 7:41:57 AM This report has been signed electronically. Number of Addenda: 0 Note Initiated On: 09/28/2024 7:09 AM
--- NOTE | 2024-09-28 07:42 | OP.CCLET_ITS ---
09/28/2024 Rossi Doyle Do Re : Colonoscopy procedure for Jayla Kaiser Dear Vivek This procedure was performed on September. My impressions and recommendations are as follows: Impressions : - Congested mucosa in the rectum, in the sigmoid colon, in the ascending colon and in the cecum. Biopsied. - Crohn's disease with ileitis. Inflammation was found. This was moderate in severity. Biopsied. Recommendations : - Discharge patient to home. - Resume previous diet. - Continue present medications. - Await pathology results. - Repeat colonoscopy to evaluate the response to therapy. My findings are described in the full procedure note, which is enclosed. If I can be of further assistance, please feel free to contact me at . Sincerely, Raj Miller, 09/28/2024 7:41:57 AM This report has been signed electronically.
--- NOTE | 2024-09-28 07:48 | PCM.POST.ANE ---
Anesthesia: Postop Eval I Current Vital Signs Temperature: 97 F Pulse Rate: 84 Blood Pressure: 118/87 Respiratory Rate: 16 Pulse Ox: 100 Oxygen Delivery Method: Room Air Assessment Airway patent: Yes Spontaneous unlabored respirations: Yes Mental status: Awake and Calm nausea: No Vomiting: No Anesthesia Complication: No Fluid Hydration Crystalloid volume administer (ml): 40 Total IV fluid infused: 40 Progress Note Anesthesia document: Postop Eval 1 completed: Yes
--- NOTE | 2024-09-28 11:24 | PCM.POSTANE2 ---
Anesthesia Postop Eval I Sum Postop Eval Completion status Anesthesia document: Postop Eval 1 completed: Yes Anesthesia Postop Eval I Summary Anesthesia Postop Eval I Summary: Anesthesia Postop Eval I: Assessment Summary Airway patent Yes 09/28/24 07:49 [email or web address] Spontaneous unlabored Yes 09/28/24 07:49 [email or web address] respirations Mental status Awake,Calm 09/28/24 07:49 [email or web address] nausea No 09/28/24 07:49 [email or web address] Vomiting No 09/28/24 07:49 [email or web address] Anesthesia Postop Eval I: Fluid Summary Crystalloid volume administer 40 09/28/24 07:49 [email or web address] (ml) Colloids volume administered ( ml) Blood Product volume administered (ml) Total IV fluid infused 40 09/28/24 07:49 [email or web address] Anesthesia Postop Eval I: Summary Notes Anesthesia Complication No 09/28/24 07:49 [email or web address] Anesthesia Complication Comment: Post-operative progress note Anesthesia: Postop Eval II Evaluation Mental status: Awake Pain Level: 0 nausea: No Vomiting: No Complications Anesthesia Complication: No
== END 2024-09-28 08:04 | disposition home or self-care (01) ==
LOC: EN 05:58 → AC 05:59
PROVIDERS: PCP Family Medicine; Referring Provider Family Medicine; Visit Provider Internal Medicine Gastroenterology
PROC: 0DJD8ZZ Inspection of Lower Intestinal Tract, Via Natural or Artificial Opening Endoscopic (ICD-10-PCS; CPT 45378; principal; 2024-09-28 06:55)
DX: K85.90 Acute pancreatitis without necrosis or infection, unspecified (principal); K50.90 Crohn's disease, unspecified, without complications; F17.200 Nicotine dependence, unspecified, uncomplicated; R93.5 Abnormal findings on diagnostic imaging of other abdominal regions, including retroperitoneum; R10.9 Unspecified abdominal pain; Z90.49 Acquired absence of other specified parts of digestive tract; K62.89 Other specified diseases of anus and rectum; K63.89 Other specified diseases of intestine
CPT/HCPCS: 45380; 88305; A4216; J2405

== ENCOUNTER → 2024-10-04 | Outpatient (CLI) | payer MEDICAID, SELFPAY ==
--- NOTE | 2024-10-04 11:35 | RAD_ITS ---
PROCEDURE: ABDOMEN SINGLE VIEW 10/04/2024 REASON FOR EXAM: LUQ PAIN TECHNIQUE: Supine view was obtained. COMPARISON: None FINDINGS: Bowel gas: Bowel gas pattern is remarkable for mild constipation. No evidence of bowel obstruction. Calcifications: No suspicious calcifications. Bones: The bones are unremarkable. Other: Status post cholecystectomy. RAD/Abdomen Single View IMPRESSION: Status post cholecystectomy. No acute abnormality is seen. Reading Location: [facility]-
[2024-10-04 12:38] LABS: AST(SGOT) 41 U/L (<=31); Alanine Aminotransfer ALT/SGPT 38 U/L (<=34); Albumin, Serum 4.3 g/dL (3.5-5.0); Alkaline Phosphatase 202 U/L (35-104); Bilirubin, Direct 0.21 mg/dL (0.00-0.30); Globulin 3.7 g/dL (2.2-4.2); Lipase 22 U/L (13-75); Total Bilirubin 0.49 mg/dL (0.00-1.30)
[2024-10-05 15:08] LABS: ANTINUCLEAR ANTIBODIES DIRECT Negative (Negative); Anti-Mitochondrial AB <20.0 Units (0.0-20.0); Anti-Smooth Muscle ABS 8 Units (0-19); Cytoplasmic Ab (C-ANCA) <1:20 titer (Neg:<1:20); Perinuclear Ab (P-ANCA) <1:20 titer (Neg:<1:20)
== END | disposition home or self-care (01) ==
LOC: LAB 11:20
PROVIDERS: PCP Family Medicine; Referring Provider Nurse Practitioner Acute Care; Visit Provider Nurse Practitioner Acute Care
DX: Q45.3 Other congenital malformations of pancreas and pancreatic duct (principal); K52.9 Noninfective gastroenteritis and colitis, unspecified; R11.0 Nausea; R10.12 Left upper quadrant pain; R19.5 Other fecal abnormalities
CPT/HCPCS: 86225; 86235; 36415; 74018; 80076; 83516; 83690; 86037; 86038

== ENCOUNTER → 2024-10-09 | Outpatient (CLI) | payer MEDICAID, SELFPAY ==
--- NOTE | 2024-10-09 09:31 | US_ITS ---
EXAM: US Abdomen Limited, Right Upper Quadrant CLINICAL INDICATION: ADD SPLEEN TECHNIQUE: Real-time ultrasound of the right upper quadrant with image documentation. COMPARISON: No relevant prior studies available. FINDINGS: RIGHT KIDNEY: Unremarkable. No stones. No hydronephrosis. The right kidney measures 9.8 x 4.5 x 5.0 cm. LEFT KIDNEY: The left kidney measures 9.9 x 4.0 x 5.8 cm. Unremarkable. No stones. No hydronephrosis. US/Abdomen Limited IMPRESSION: Unremarkable [facility]
== END | disposition home or self-care (01) ==
LOC: US 09:29
PROVIDERS: PCP Family Medicine; Referring Provider Nurse Practitioner Acute Care; Visit Provider Nurse Practitioner Acute Care
DX: R10.12 Left upper quadrant pain (principal)
CPT/HCPCS: 76705

== ENCOUNTER → 2024-11-30 | Outpatient (CLI) | payer MEDICAID, SELFPAY ==
[2024-11-30 13:21] LABS: Hepatitis B Surface Antibody REAC
[2024-11-30 13:29] LABS: ALB/GLOB Ratio 1.3 RATIO (0.9-2.4); AST(SGOT) 22 U/L (<=31); Alanine Aminotransfer ALT/SGPT 30 U/L (<=34); Albumin, Serum 4.6 g/dL (3.5-5.0); Alkaline Phosphatase 140 U/L (35-104); Anion Gap 15 (5-15); BUN 11 mg/dL (4-19); BUN/Creat Ratio 16.8 RATIO (10-20); Calcium,Total 9.6 mg/dL (7.6-11.0); Carbon Dioxide 19.4 mmol/L (21.0-32.0); Chloride 104 mmol/L (98-108); Creatinine, Serum 0.64 mg/dL (0.70-1.20); EST Glomerular Filtration Rate 120 (>60); Globulin 3.5 g/dL (2.2-4.2); Glucose 112 mg/dL (70-99); Hepatitis B Surface Antigen Nonreactive (Nonreactive); Hepatitis C Antibody Nonreactive (Nonreactive); Potassium 4.4 mmol/L (3.3-5.1); Protein, Total 8.1 g/dL (5.9-8.4); Sodium Level 138 mmol/L (133-145)
[2024-11-30 13:31] LABS: CRP < 3.00 mg/L (0.0-3.0); Lipase 21 U/L (13-75)
[2024-12-05 05:07] LABS: Hepatitis A AB, Total Negative (Negative); Hepatitis B Core Ab Total Negative (Negative); QNTFERON TB Mitogen Value > 10.00 IU/mL (.); QNTFERON TB Nil Value 0.04 IU/mL (.); QNTFERON TB1+ Ag Value 0.04 IU/mL (.); QNTFERON TB2+ Ag Value 0.04 IU/mL (.); QNTIFERON TB Positive Criteria Negative (Negative)
== END | disposition home or self-care (01) ==
LOC: LAB 11:26
PROVIDERS: PCP Family Medicine; Referring Provider Nurse Practitioner Acute Care; Visit Provider Nurse Practitioner Acute Care
DX: R74.01 Elevation of levels of liver transaminase levels (principal); R74.8 Abnormal levels of other serum enzymes; R11.0 Nausea; R10.12 Left upper quadrant pain; R19.5 Other fecal abnormalities; K52.9 Noninfective gastroenteritis and colitis, unspecified
CPT/HCPCS: 36415; 80053; 83690; 86140; 86480; 86704; 86706; 86708; 86803; 87340

== ENCOUNTER → 2024-12-28 | Outpatient (CLI) | payer MEDICAID, SELFPAY ==
[2024-12-28 15:09] LABS: Absolute Lymphocyte Count 2.83 X10^3/uL (0.83-4.51); Absolute Neutrophil Count 6.8 X10^3/uL (2.0-7.7); Basophil# 0.06 X10^3/uL; Basophil% 0.6 % (0-1); Eosinophil# 0.33 X10^3/uL; Eosinophils% 3.1 % (0-5); Hematocrit 39.7 % (37-47); Lymphocyte # 2.83 X10^3/ul (0.83-4.51); Lymphocyte % 26.6 % (19-41); Mean Corp Hgb Conc 32.7 g/dL (32-36); Mean Corpuscular Hgb 29.6 pg (27.0-32.0); Mean Corpuscular Volume 90.4 fL (81-99); Mean Platelet Vol. 12.3 fl (6.2-12.0); Monocyte# 0.59 X10^3/uL; Monocyte% 5.5 % (0-10); NRBC Flagged by Analyzer 0 % (0-5); Neutrophil # 6.75 X10^3/uL (2.7-7.7); Neutrophil % 63.4 % (47-70); Platelet Count 431 K/mm3 (150-450); RBC Distribution Width CV 12.9 % (11.6-14.6); RBC Distribution Width SD 42.6 fl (35.1-43.9); Red Blood Count 4.39 M/mm3 (4.2-5.4); White Blood Count 10.7 K/mm3 (4.4-11.0)
[2024-12-28 15:51] LABS: ALB/GLOB Ratio 1.2 RATIO (0.9-2.4); AST(SGOT) 25 U/L (<=31); Alanine Aminotransfer ALT/SGPT 24 U/L (<=34); Albumin, Serum 4.1 g/dL (3.5-5.0); Alkaline Phosphatase 203 U/L (35-104); Anion Gap 14 (5-15); BUN 10 mg/dL (4-19); BUN/Creat Ratio 15.4 RATIO (10-20); Calcium,Total 9.3 mg/dL (7.6-11.0); Carbon Dioxide 22.6 mmol/L (21.0-32.0); Chloride 100 mmol/L (98-108); Creatinine, Serum 0.66 mg/dL (0.70-1.20); EST Glomerular Filtration Rate 119 (>60); Globulin 3.5 g/dL (2.2-4.2); Glucose 107 mg/dL (70-99); Lipase 21 U/L (13-75); Potassium 3.7 mmol/L (3.3-5.1); Protein, Total 7.5 g/dL (5.9-8.4); Sodium Level 137 mmol/L (133-145); Total Bilirubin 0.23 mg/dL (0.00-1.30)
== END | disposition home or self-care (01) ==
LOC: LAB 13:26
PROVIDERS: PCP Family Medicine; Referring Provider Nurse Practitioner Acute Care; Visit Provider Nurse Practitioner Acute Care
DX: R10.13 Epigastric pain (principal); R10.33 Periumbilical pain
CPT/HCPCS: 36415; 80053; 83690; 85025

== ENCOUNTER → 2024-12-29 | Outpatient (CLI) | payer MEDICAID, SELFPAY ==
--- NOTE | 2024-12-29 11:46 | MRI_ITS ---
EXAM: ENTEROGRAPHY ABD/PEL 12/29/2024 CLINICAL HISTORY: R19.5 - OTHER FECAL ABNORMALITIES. History of Crohn's disease. TECHNIQUE: MRI of the abdomen/pelvis was performed. Multiplanar and multisequence images were obtained without and with intravenous gadolinium contrast. Enterography protocol. COMPARISON: MRCP abdomen with/without contrast August 2024. FINDINGS: The distal 40 cm of ileum (including the terminal ileum) demonstrate moderate smooth mural thickening and surrounding inflammation with trace fluid, consistent with acute Crohn's enteritis. Single mural thickness measures up to 8 mm. Adjacent hypervascularity of the mesentery (comb sign) with also fibrofatty proliferation. Despite luminal narrowing produced by this mural thickening, there is no mechanical obstruction at this time. Regional mesenteric adenopathy is noted. For reference, the largest sales representative trainee node measures approximately 4 x 1.2 cm based on coronal sequence. Remainder of small bowel is normal. No bowel stricturing or fistula seen. No signs of GI tract malignancy. The colon is normal. Normal appendix. Liver is unremarkable. Gallbladder is not visualized, suggesting surgical absence. Pancreas and spleen are unremarkable. Normal adrenal glands and kidneys. Abdominal aorta is unremarkable. SMV and portal veins are patent. Uterus and ovaries are unremarkable. The urinary bladder is unremarkable. Trace free fluid in the pelvis. No sacroiliac joint pathology is identified. MRI/Enterography Abd/Pel IMPRESSION: Active Crohn's enteritis involving a 40 cm segment of distal ileum (including t erminal ileum). No mechanical obstruction. No fistula or bowel stricture is evident. Regional mesenteric adenopathy noted. No gastric or colonic pathology identified. Reading Location: [facility]
[2024-12-29 11:56] VITALS: BP 119/84; PULSE 87; RESP 14; O2SAT 95; BMI 22.6
[2024-12-29] MEDS: Glucagon 1 MG/ML Syringe IV (13:26)
[2024-12-29 13:41] VITALS: BP 116/77; PULSE 86; RESP 16; O2SAT 99
== END | disposition home or self-care (01) ==
LOC: MRI 11:31
PROVIDERS: PCP Family Medicine; Referring Provider Nurse Practitioner Acute Care; Visit Provider Nurse Practitioner Acute Care
DX: R19.5 Other fecal abnormalities (principal); R93.89 Abnormal findings on diagnostic imaging of other specified body structures; R19.7 Diarrhea, unspecified; R10.9 Unspecified abdominal pain
CPT/HCPCS: 74183; 96374; A9575; A4216; J1610

== ENCOUNTER → 2025-02-22 | Outpatient (CLI) | payer MEDICAID, SELFPAY ==
[2025-02-22 11:19] LABS: Hematocrit 46.9 % (37-47); Hemoglobin 15.1 g/dL (12.0-15.0); Immature Granulocytes Count 0.290 X10^3/uL (0.0-0.0); Mean Corp Hgb Conc 32.2 g/dL (32-36); Mean Corpuscular Volume 91.4 fL (81-99); Mean Platelet Vol. 11.2 fl (6.2-12.0); NRBC Flagged by Analyzer 0 % (0-5); POSITIVE DIFFERENTIAL YES; POSITIVE MORPHOLOGY YES; Platelet Count 373 K/mm3 (150-450); RBC Distribution Width CV 14.3 % (11.6-14.6); RBC Distribution Width SD 48.2 fl (35.1-43.9); Red Blood Count 5.13 M/mm3 (4.2-5.4); White Blood Count 20.0 K/mm3 (4.4-11.0)
[2025-02-22 11:20] LABS: Differential Indicated SCAN CRITERIA MET
[2025-02-22 12:26] LABS: AST(SGOT) 16 U/L (<=31); Alanine Aminotransfer ALT/SGPT 25 U/L (<=34); Albumin, Serum 4.4 g/dL (3.5-5.0); Alkaline Phosphatase 101 U/L (35-104); Anion Gap 16 (5-15); BUN 13 mg/dL (4-19); BUN/Creat Ratio 15.5 RATIO (10-20); Calcium,Total 9.5 mg/dL (7.6-11.0); Carbon Dioxide 21.6 mmol/L (21.0-32.0); Chloride 101 mmol/L (98-108); Globulin 3.0 g/dL (2.2-4.2); Glucose 87 mg/dL (70-99); Potassium 3.9 mmol/L (3.3-5.1); Vitamin B12 229 pg/mL (180-914); Vitamin D,25 Hydroxy 21.5 ng/mL (30-100)
[2025-02-22 12:34] LABS: CRP < 3.00 mg/L (0.0-3.0); Lipase 26 U/L (13-75)
== END | disposition home or self-care (01) ==
LOC: LAB 10:49
PROVIDERS: PCP Family Medicine; Referring Provider Nurse Practitioner Acute Care; Visit Provider Nurse Practitioner Acute Care
DX: K50.00 Crohn's disease of small intestine without complications (principal); R11.2 Nausea with vomiting, unspecified
CPT/HCPCS: 36415; 80053; 82306; 82607; 83690; 85025; 86140

== ENCOUNTER → 2025-06-20 | Outpatient (CLI) | payer MEDICAID, SELFPAY ==
[2025-06-20 17:11] LABS: Hematocrit 40.0 % (37-47); Hemoglobin 13.2 g/dL (12.0-15.0); Immature Granulocytes Count 0.020 X10^3/uL (0.0-0.0); Mean Corp Hgb Conc 33.0 g/dL (32-36); Mean Corpuscular Volume 89.7 fL (81-99); Mean Platelet Vol. 13.0 fl (6.2-12.0); NRBC Flagged by Analyzer 0 % (0-5); Platelet Count 227 K/mm3 (150-450); RBC Distribution Width CV 12.7 % (11.6-14.6); RBC Distribution Width SD 42.2 fl (35.1-43.9); Red Blood Count 4.46 M/mm3 (4.2-5.4); White Blood Count 7.4 K/mm3 (4.4-11.0)
[2025-06-20 17:33] LABS: AST(SGOT) 19 U/L (<=31); Alanine Aminotransfer ALT/SGPT 13 U/L (<=34); Albumin, Serum 4.4 g/dL (3.5-5.0); Alkaline Phosphatase 94 U/L (35-104); Anion Gap 13 (5-15); BUN 11 mg/dL (4-19); BUN/Creat Ratio 16.4 RATIO (10-20); Calcium,Total 8.9 mg/dL (7.6-11.0); Carbon Dioxide 22.5 mmol/L (21.0-32.0); Chloride 105 mmol/L (98-108); Globulin 2.5 g/dL (2.2-4.2); Glucose 94 mg/dL (70-99); Potassium 3.8 mmol/L (3.3-5.1)
[2025-06-20 18:19] LABS: Amylase 44 U/L (28-100); CRP 4.57 mg/L (0.0-3.0); Lipase 21 U/L (13-75)
== END | disposition home or self-care (01) ==
PROVIDERS: PCP Family Medicine; Referring Provider Internal Medicine Gastroenterology; Visit Provider Internal Medicine Gastroenterology
DX: K86.1 Other chronic pancreatitis (principal); K50.00 Crohn's disease of small intestine without complications; R10.33 Periumbilical pain
CPT/HCPCS: 36415; 80053; 82150; 83690; 85025; 86140; 86664